=== PATIENT | female | born 1965 | race Caucasian/White ===

== ENCOUNTER 2017-12-04 14:01 | Inpatient (IN) ==
[2017-12-04 14:32] LABS: Microscopic, Urine URINE MICROSCOPIC (MICROSCOPIC)
[2017-12-04 14:40] LABS: Appearance,Urine CLEAR (Clear); Bilirubin,Urine Negative (Negative); Blood, Urine Negative (Negative); Color,Urine YELLOW (Yellow); Glucose,Urine (UA) Negative (Negative); Ketones,Urine Negative (Negative); Leukocyte Esterase,Urine Negative (Negative); Protein,Urine Negative (Negative); Specific Gravity, Urine <= 1.005 (1.005-1.030); Urobilinogen,Urine 0.2 EU/dl (0.2)
--- NOTE | 2017-12-04 14:54 | Emergency Department Note ---
ED Disposition Clinical Impression: Cellulitis, Status post knee replacement, Obesity (BMI 30-39.9) Disposition: Home, Self-Care Condition on Discharge: Fair Referrals: January Flores MD [Primary Care Provider] - - Critical Care Critical Care Time: No Attestation: On 12/04/17, the high probability of a clinically significant, sudden or life threatening deterioration of the following system(s) required my full and direct attention, intervention and personal management. The time I documented below is in addition to time spent performing reported procedures but includes the following listed in this critical care notation. Medical Decision Making - Reyes Inquiry Pt receiving controlled substance: No Reyes was queried for this patient: No Vital Signs: 12/04/17 14:15 12/04/17 16:29 Temperature 100.0 F H 100.2 F H Temperature Source Oral Oral Pulse Rate [Right Brachial] 90 89 Respiratory Rate 16 20 Blood Pressure [Right Arm] 125/78 108/62 Blood Pressure Mean [Right Arm] 93 77 Blood Pressure Source [Right Arm] Automatic Cuff Automatic Cuff Blood Pressure Position [Right Arm] Sitting Sitting 02 Sat by Pulse Oximetry 97 95 Oxygen Delivery Method Room Air Room Air - Lab Data Lab Results 12/04/17 14:25: Urine Color Yellow, Urine Appearance Clear, Urine pH 7.0, Ur Specific [place] <= 1.005, Urine Protein Negative, Urine Glucose (UA) Negative, Urine Ketones Negative, Urine Blood Negative, Urine Nitrate Negative, Urine Bilirubin Negative, Urine Urobilinogen 0.2, Ur Leukocyte Esterase Negative, Urine RBC None, Urine WBC Occasional, Ur Squamous Epith Cells 10-20, Urine Bacteria Trace 12/04/17 16:10: WBC 7.7, RBC 4.19 L, Hgb 11.9 L, Hct 36.8 L, MCV 87.7, MCH 28.4 , MCHC 32.4, RDW 15.2, Plt Count 232, MPV 8.6, Neut % (Auto) 80.9 H, Lymph % ( Auto) 13.8, [place] % (Auto) 2.8, Eos % (Auto) 2.1, Baso % (Auto) 0.4, Neut # (Auto ) 6.2, Lymph # (Auto) 1.1, [place] # (Auto) 0.2, Eos # (Auto) 0.2, Baso # (Auto) 0.0 12/04/17 16:10: Sodium 139, Potassium 3.5, Chloride 103, Carbon Dioxide 30, Anion Gap 9.5, BUN 5 L, Creatinine 0.89, Estimated Creat Clear 126, Estimated GFR 66, Est GFR ( Amer) 80, Glucose 122 H, Calcium 8.5, Total Bilirubin 0.5, AST 36, ALT 44, Alkaline Phosphatase 129 H, Total Protein 7.2, Albumin 3.2 L, Globulin 4.0 H, Albumin/Globulin Ratio 0.8 L 12/04/17 16:10: Lactate 2.1 H Result diagrams: 12/04/17 16:10 12/04/17 16:10 Orders (Tests/Meds): ED MEDICATIONS Discontinued Medications Generic Name Dose Route Start Last Admin Trade Name Cooper PRN Reason Stop Dose Admin Acetaminophen 1,000 mg 12/04/17 16:29 12/04/17 16:33 Tylenol 500mg Tablet PO 12/04/17 16:30 1,000 mg ONCE ONE Administration Ceftriaxone Sodium 1 gm/ 50 mls @ 100 mls/hr 12/04/17 14:56 12/04/17 15:51 Sodium Chloride IV 12/04/17 15:25 100 mls/hr ONCE ONE Administration Protocol Iopamidol 75 ml 12/04/17 17:08 12/04/17 17:08 [id number]; 75ml Vial IV 12/04/17 17:09 75 ml ONCE ONE Administration Ketorolac Tromethamine 30 mg 12/04/17 14:56 12/04/17 15:50 Toradol 30mg/Ml Vial IV 12/04/17 14:57 30 mg ONCE ONE Administration Sodium Chloride 10 ml 12/04/17 17:08 12/04/17 17:08 Rad-Saline Flush 10ml Syringe IV 12/04/17 17:09 10 ml ONCE ONE Administration Sodium Chloride 50 ml 12/04/17 17:08 12/04/17 17:08 Rad-Ns 50ml Vial IV 12/04/17 17:09 50 ml ONCE ONE Administration ORDERS Category Date Time Status Blood Culture Stat Micro 12/04/17 16:10 Received - Radiology Data #1 Image(s): Chest Image Reviewed: Yes I reviewed the patient's radiology image Preliminary Findings: Abnormal IMPRESSION: Mild cardiomegaly otherwise negative - CT Data CT Scan: Chest Time Received: 17:[address] Reviewed: Yes: I have viewed the radiologist's interpretation Preliminary Findings: Normal/NAD Findings Narrative: IMPRESSION: No acute finding. No evidence of pulmonary embolus, aortic aneurysm, or aortic dissection. - US Data US Images: Lower Extremity ED US Reviewed: Yes: I have viewed radiologist's interpretation Preliminary Findings: Normal/NAD Findings Narrative: IMPRESSIONS No evidence of deep or superficial vein thrombosis involving the left lower extremity Left lower extremity venous duplex evaluation. Doppler flow study including spectral analysis, color and jorge scale imaging. Location: Bedside. Patient status: Inpatient. Tables: Venous flow and imaging: Medical Decision Narrative: [address] Maria admitted for cellulitis he asked me to contact the orthopedic and notify him that the patient is in the ED. [address] Griffiths who agreed to admit the patient to the in-service. General Adult HPI - General Chief complaint: PAIN Stated complaint: fever place on granados left leg Time Seen by Provider: 12/04/17 14:30 Mode of Arrival: Wheelchair Limitations: No Limitations Description of Symptoms (Recalled from ER Triage Doc. by RN): Pt advises she had knee replacement surgery on 11/24 and for the past couple of days her lower left leg is red, swollen, tender to touch. She advises she has been running a fever also. - History of Present Illness HPI narrative: 52 years old white female status post left knee replacement 7 days ago. 5 days ago she started to rehab with pain and swelling of the left calf muscle and mild redness of the skin of the granados area. Next day she developed fever of 101F symptoms continued and she presented today to the ED with above symptoms. She she admits for fever and chills with no headache neck stiffness cough congestion nausea vomiting abdominal pain or dysuria. Onset (ago): day(s) (4-5 days.) Location: left, lower extremity Radiation: non-radiation Severity: moderate Quality: aching, dull Consistency: constant Relieving factors: rest, other (and elevation. ) Exacerbating factors: other (Touching the skin of the anterior granados area makes the pain worse.) - Related Data Allergies Allergy/AdvReac Type Severity Reaction Status Date / Time duloxetine [From Cymbalta] Allergy Mild Verified 12/04/17 14:26 pregabalin [From Lyrica] Allergy Verified 12/04/17 14:26 [facility] History I have reviewed the patient's past medical history: Yes Medical History: Denies:: Cancer, Diabetes Mellitus Type 1, Diabetes Mellitus Type 2, MRSA Laterality Cases: Bilateral: Carpal Tunnel Release, Tonsillectomy, Total Knee Replacement Amputation: No Fractures: No - Social History Alcohol Intake: never - Psychiatric History Expresses thoughts of harming self/others: None Suicide Plan Description: No Plan ROS Obtained: Yes All systems reviewed & no additional complaints Physical Exam - General General appearance: alert, in no apparent distress, anxious - Head Head exam: atraumatic, normocephalic, normal inspection - Eye Eye exam: Present: normal appearance, PERRL, EOMI. Absent: scleral icterus, nystagmus - ENT ENT exam: Present: normal exam, normal oropharynx, mucous membranes moist, TM's normal bilaterally, normal external ear exam - Neck Neck exam: Present: normal inspection, full ROM, trachea midline. Absent: tenderness, meningismus, lymphadenopathy - Chest Chest inspection: Present: normal inspection, symmetric chest wall rise. Absent : tenderness - Respiratory Respiratory exam: Present: normal lung sounds bilaterally. Absent: respiratory distress, wheezes - Cardiovascular Cardiovascular exam: Present: regular rate, normal rhythm, normal heart sounds. Absent: JVD - Abdominal Exam Abdominal exam: Present: soft, normal bowel sounds. Absent: distention, tenderness, guarding, rebound, rigidity - External exam: Present: normal external exam - Extremities Exam Extremities exam: Present: normal inspection, full ROM, tenderness (On examining the skin of the anterior granados area on the left leg), normal capillary refill, joint swelling, other (The incision over the left knee is clean with no discharge. She does have mild redness around the scab in the center of the left granados area medially with tenderness to palpation. She has no calf tenderness or groin tenderness). Absent: pedal edema, calf tenderness - Back Exam Back exam: Present: normal inspection. Absent: tenderness - Neurological Exam Neurological exam: Present: alert, oriented X3, CN II-XII intact, motor sensory deficit, reflexes normal, other (She has an antalgic gait due to her surgery on the left leg.). Absent: normal gait - Psychiatric Psychiatric exam: Present: normal affect, normal mood - Skin Skin exam: Present: warm, dry, intact, normal color - Lymphatic Lymphatic Findings: no adenopathy
[2017-12-04 15:04] LABS: Bacteria,Urine Trace /lpf; WBC,Urine Occasional #/hpf (0-3)
--- NOTE | 2017-12-04 15:44 | Non-Invasive Vascular Report ---
"Venous Exam IMPRESSIONS No evidence of deep or superficial vein thrombosis involving the left lower extremity Left lower extremity venous duplex evaluation. Doppler flow study including spectral analysis, color and jorge scale imaging. Location: Bedside. Patient status: Inpatient. Tables: Venous flow and imaging: + +-------+ + |Location |Overall|Flow properties | + +-------+ + |Left common femoral |Patent |Normal phasicity; spontaneous; | | | |normal augmentation; compressible | + +-------+ + |Left saphenofemoral junction|Patent |Compressible | + +-------+ + |Left profunda femoral |Patent |Compressible | + +-------+ + |Left femoral |Patent |Normal phasicity; spontaneous; | | | |normal augmentation; compressible | + +-------+ + |Left greater saphenous |Patent |Normal phasicity; spontaneous; | | | |normal augmentation; compressible | + +-------+ + |Left popliteal |Patent |Normal phasicity; spontaneous; | | | |normal augmentation; compressible | + +-------+ + |Left posterior tibial |Patent |Compressible | + +-------+ + |Left peroneal |Patent |Compressible | + +-------+ + |Left gastrocnemius |Patent |Compressible | + +-------+ + |Left soleal |Patent |Compressible | + +-------+ + (Report amended ) Electronically signed by: Saul Wisdom [id number]"
[2017-12-04 16:23] LABS: Basophils % 0.4 % (0.1-2.0); Eosinophils # 0.2 K/mm3 (0.0-0.4); Eosinophils % 2.1 % (0.1-12.0); Hematocrit 36.8 % (37.0-47.0); Hemoglobin 11.9 g/dL (12.2-16.2); Lymphocytes # 1.1 K/mm3 (0.7-4.5); Lymphocytes % 13.8 K/mm3 (10-50); Mean Corpuscular HGB Conc 32.4 g/dL (31.8-35.4); Mean Corpuscular Hemoglobin 28.4 pg (27.0-31.2); Mean Corpuscular Volume 87.7 fl (81-99); Mean Platelet Volume 8.6 fl (7.4-10.4); Monocytes # 0.2 K/mm3 (0.1-1.0); Monocytes % 2.8 % (1.7-9.3); Neutrophils # 6.2 K/mm3 (1.8-7.8); Neutrophils % 80.9 % (37.0-80.0); Platelet Count 232 K/mm3 (142-424); Red Blood Count 4.19 M/mm3 (4.20-5.40); Red Cell Distribution Width 15.2 % (11.5-17.5); White Blood Count 7.7 K/mm3 (4.8-10.8)
[2017-12-04 16:42] LABS: Albumin Level 3.2 gm/dL (3.4-5.0); Albumin/Globulin Ratio 0.8 (1.1-1.8); Anion Gap 9.5 mEq/L (5-15); Bilirubin,Total 0.5 mg/dL (0.2-1.0); Calcium 8.5 mg/dL (8.5-10.1); Potassium 3.5 mmoL/L (3.5-5.1); Total Protein,Serum 7.2 gm/dL (6.4-8.2)
[2017-12-05 06:21] LABS: Basophils % 0.3 % (0.1-2.0); Eosinophils # 0.2 K/mm3 (0.0-0.4); Eosinophils % 4.4 % (0.1-12.0); Lymphocytes # 1.1 K/mm3 (0.7-4.5); Mean Corpuscular HGB Conc 31.6 g/dL (31.8-35.4); Mean Corpuscular Hemoglobin 27.9 pg (27.0-31.2); Mean Corpuscular Volume 88.4 fl (81-99); Mean Platelet Volume 8.5 fl (7.4-10.4); Monocytes # 0.3 K/mm3 (0.1-1.0); Monocytes % 5.6 % (1.7-9.3); Neutrophils # 2.9 K/mm3 (1.8-7.8); Neutrophils % 64.7 % (37.0-80.0); Platelet Count 218 K/mm3 (142-424); Red Blood Count 3.83 M/mm3 (4.20-5.40); Red Cell Distribution Width 15.5 % (11.5-17.5)
[2017-12-05 06:24] LABS: Anion Gap 6.2 mEq/L (5-15); Calcium 8.3 mg/dL (8.5-10.1); Potassium 3.2 mmoL/L (3.5-5.1)
--- NOTE | 2017-12-05 06:24 | History & Physical Report ---
*Admission Date: 12/04/17 *Chief complaint: Left leg pain and swelling *History of present illness: 52-year-old female who is approximately 11 days postop from left knee replacement presented to the emergency department yesterday with complaints of pain, swelling, redness that had developed in the left leg over the preceding 4 days. Patient noticed onset of the symptoms earlier in the week and had pointed this out to her physical therapist. She had associated low-grade fevers as well. Yesterday morning her therapist decided to contact the orthopedic surgeon who performed her surgery and it was recommended she go to the emergency department. Patient's surgery was in [place], her primary care physician is in [place], she works in [place], but patient came to our emergency department for evaluation. In the emergency department she was described as having rapidly progressive erythema of the lower leg and extending posterior medially in a rather fast fashion. She had associated tenderness. Doppler with warm to the lower extremity to rule out DVT which was negative. Patient had a low-grade fever to 100.2 and a normal white blood cell count. Because of the rapidly progressive erythema the borders were identified and marked with ink and patient was admitted on vancomycin. Patient has been ambulating throughout the night. She did not sleep well because she did not have her Ambien which she takes at home. She has not had any further fevers since admission. [facility] History I have reviewed the patient's past medical history: Yes Medical History: Denies:: Cancer, Diabetes Mellitus Type 1, Diabetes Mellitus Type 2, MRSA Other Medical History: Reports: Fibromyalgia, Hypothyroidism Laterality Cases: Bilateral: Carpal Tunnel Release, Tonsillectomy, Total Knee Replacement Other Surgeries: Yes: Cholecystectomy Amputation: No Fractures: No - *Social History Educational Level: Completed High School Smoking Status: Never smoker Alcohol Intake: never Occupational Status: employed Household Members: family - Psychiatric History Expresses thoughts of harming self/others: None Suicide Plan Description: No Plan *Family Hx:: Anemia, Asthma, Cancer, Thyroid Disorder Review of Systems - Review of Systems Review of systems:: pertinent systems reviewed and negative unless documented below Meds Home Medications Medication Instructions Recorded Confirmed Type Gabapentin [Gabapentin 300mg Cap] 300 - 600 mg PO DAILY 12/04/17 12/04/17 History Levothyroxine Sodium 88 mcg PO DAILY 12/04/17 12/04/17 History [Levothyroxine 88mcg (0.088mg) Tab] Pantoprazole Sodium [Pantoprazole 40 mg PO DAILY 12/04/17 12/04/17 History 20mg Tab] RX: Amitriptyline HCl [Elavil 50mg 50 mg PO HS 12/04/17 12/04/17 History tablet] RX: Escitalopram Oxalate 20 mg PO HS 12/04/17 12/04/17 History RX: Zolpidem Tartrate [Ambien 10mg 10 mg PO HS 12/04/17 12/04/17 History tablet] Allergies Allergy/AdvReac Type Severity Reaction Status Date / Time duloxetine [From Cymbalta] Allergy Mild Verified 12/04/17 20:18 latex Allergy Mild Verified 12/04/17 20:18 pregabalin [From Lyrica] Allergy Verified 12/04/17 20:18 Exam Vital signs and Labs for Last 24 Hours: Temp Pulse Resp BP Pulse Ox 98.5 F 77 16 111/71 92 L 12/05/17 04:00 12/05/17 04:00 12/05/17 04:00 12/05/17 04:00 12/05/17 04:00 Laboratory Results - last 24 hr 12/04/17 14:25: Urine Color Yellow, Urine Appearance Clear, Urine pH 7.0, Ur Specific [place] <= 1.005, Urine Protein Negative, Urine Glucose (UA) Negative, Urine Ketones Negative, Urine Blood Negative, Urine Nitrate Negative, Urine Bilirubin Negative, Urine Urobilinogen 0.2, Ur Leukocyte Esterase Negative, Urine RBC None, Urine WBC Occasional, Ur Squamous Epith Cells 10-20, Urine Bacteria Trace 12/04/17 16:10: WBC 7.7, RBC 4.19 L, Hgb 11.9 L, Hct 36.8 L, MCV 87.7, MCH 28.4 , MCHC 32.4, RDW 15.2, Plt Count 232, MPV 8.6, Neut % (Auto) 80.9 H, Lymph % ( Auto) 13.8, [place] % (Auto) 2.8, Eos % (Auto) 2.1, Baso % (Auto) 0.4, Neut # (Auto ) 6.2, Lymph # (Auto) 1.1, [place] # (Auto) 0.2, Eos # (Auto) 0.2, Baso # (Auto) 0.0 12/04/17 16:10: Sodium 139, Potassium 3.5, Chloride 103, Carbon Dioxide 30, Anion Gap 9.5, BUN 5 L, Creatinine 0.89, Estimated Creat Clear 126, Estimated GFR 66, Est GFR ( Amer) 80, Glucose 122 H, Calcium 8.5, Total Bilirubin 0.5, AST 36, ALT 44, Alkaline Phosphatase 129 H, Total Protein 7.2, Albumin 3.2 L, Globulin 4.0 H, Albumin/Globulin Ratio 0.8 L 12/04/17 16:10: Lactate 2.1 H 12/04/17 20:29: Lactate 1.7 I & O for Last 24 hours: Intake & Output 12/02/17 12/03/17 12/04/17 12/05/17 11:59 11:59 11:59 11:59 Intake Total 549 / 549 Output Total 1000 / 1000 Balance -451 / -451 Weight 261 lb 4 oz Narrative: Patient appears well and in no distress. Lungs are clear to auscultation. Heart has a regular rate and rhythm. Left leg is examined and compared to the right. Pedal edema that was described as being present is now absent. Patient has noticeable bruising in the lower medial leg. Area of bruising is tender. There is some faint erythema starting in the medial calf and extending medial and posterior up the leg. There is no involvement of the surgical incision with erythema or swelling. Patient is tender along the route of erythema. She has palpable pulses and is neurovascularly intact in the left foot H&P: Result - Labs Labs: Short CBC 12/04/17 Range/Units 16:10 WBC 7.7 (4.8-10.8) K/mm3 Hgb 11.9 L (12.2-16.2) g/dL Hct 36.8 L (37.0-47.0) % Plt Count 232 (142-424) K/mm3 BMP 12/04/17 16:10 Sodium 139 Potassium 3.5 Chloride 103 Carbon Dioxide 30 BUN 5 L Creatinine 0.89 Glucose 122 H Calcium 8.5 Liver Function 12/04/17 Range/Units 16:10 Total Bilirubin 0.5 (0.2-1.0) mg/dL AST 36 (15-37) U/L ALT 44 (12-78) U/L Alkaline Phosphatase 129 H (46-116) U/L Albumin 3.2 L (3.4-5.0) gm/dL Urine 12/04/17 Range/Units 14:25 Urine Color Yellow (Yellow) Urine Appearance Clear (Clear) Urine pH 7.0 (5.0-8.5) Ur Specific [place] <= 1.005 (1.005-1.030) Urine Protein Negative (Negative) Urine Glucose (UA) Negative (Negative) Assessment and Plan (1) Cellulitis Current visit: Yes Status: Acute Category: Medical Code(s): L03.90 - Cellulitis, unspecified (2) Superficial thrombophlebitis Current visit: Yes Status: Acute Category: Medical Code(s): I80.9 - Phlebitis and thrombophlebitis of unspecified site (3) Obesity (BMI 30-39.9) Current visit: Yes Status: Acute Category: Medical Code(s): E66.9 - Obesity, unspecified (4) Status post knee replacement Current visit: Yes Status: Acute Category: Surgical Code(s): Z96.659 - Presence of unspecified artificial knee joint - Assessment and plan all Dx Assessment and Plan for all problems:: Patient is already showing significant signs of improvement with now barely perceptible erythema. Continue vancomycin. I will add an anti-inflammatory for what I believe is also some underlying superficial thrombophlebitis. Patient has been ambulating. Will reassess this afternoon. She has scheduled follow-up with her orthopedic surgeon next Friday. CBC will be repeated this morning
[2017-12-05 06:36] LABS: Hematocrit 33.9 % (37.0-47.0); Hemoglobin 10.8 g/dL (12.2-16.2); White Blood Count 4.4 K/mm3 (4.8-10.8)
--- NOTE | 2017-12-05 07:20 | Pharmacy Consult Notes ---
[facility] Pharmacy VTE Monitoring - Patient Demographics Admission date: 12/04/17 Report Date: 12/05/17 Time: 07:20 Allergies/Adverse Reactions: Patient Allergies duloxetine [From Cymbalta] Allergy (Mild, Verified 12/04/17 20:18) latex Allergy (Mild, Verified 12/04/17 20:18) pregabalin [From Lyrica] Allergy (Verified 12/04/17 20:18) Height: 1.7 m Weight: 118.501 kg Patient Problems: Current Active Problems Cellulitis (Acute) Status post knee replacement (Acute) Obesity (BMI 30-39.9) (Acute) Superficial thrombophlebitis (Acute) - VTE Risk Labs: VTE Related Lab Results Hgb 10.8 g/dL (12.2-16.2) L 12/05/17 05:09 Hct 33.9 % (37.0-47.0) L 12/05/17 05:09 Plt Count 218 K/mm3 (142-424) 12/05/17 05:09 BUN 5 mg/dL (7-18) L 12/05/17 05:09 Creatinine 0.75 mg/dL (0.55-1.02) 12/05/17 05:09 Estimated Creat Clear 162 mL/min (0-300) 12/05/17 05:09 Was VTE Risk Assessment Performed: Yes VTE Score: 4 VTE Risk Level: Low Risk - Prophylaxis VTE Prophylaxis Ordered?: Yes Types of VTE Prophylaxis: TEDS Knee High Location of Applied Device: Bilateral Lower Extremeties - VTE Diagnosis Confirmed Treatment or plan recommended: Continue Current Treatment
--- NOTE | 2017-12-05 09:44 | Pharmacy Consult Notes ---
- Pharmacy Consult Date: 12/05/17 Time: 09:42 Referring provider: DR. SOARES Reason for Consult:: VANCOMYCIN DOSING Allergies and ADEs:: Allergies Allergy/AdvReac Type Severity Reaction Status Date / Time duloxetine [From Cymbalta] Allergy Mild Verified 12/04/17 20:18 latex Allergy Mild Verified 12/04/17 20:18 pregabalin [From Lyrica] Allergy Verified 12/04/17 20:18 Home Medications:: Home Medications Medication Instructions Recorded Confirmed Type Amitriptyline HCl [Elavil 50mg 50 mg PO HS 12/04/17 12/04/17 History tablet] Escitalopram Oxalate 30 mg PO HS 12/04/17 12/05/17 History Gabapentin [Gabapentin 300mg Cap] 300 mg PO BID 12/04/17 12/05/17 History Pantoprazole Sodium [Pantoprazole 40 mg PO DAILY 12/04/17 12/04/17 History 20mg Tab] Zolpidem Tartrate [Ambien 10mg 10 mg PO HS 12/04/17 12/04/17 History tablet] Buspirone HCl 15 mg PO BID 12/05/17 12/05/17 History Diclofenac Sodium [Diclofenac Sod 2 gm TP QID 12/05/17 12/05/17 History 100gm Topical Gel] Enoxaparin Sodium [Lovenox 40 mg SQ DAILY 12/05/17 12/05/17 History 40mg/0.4mL syringe] Levothyroxine Sodium 100 mg PO DAILY 12/05/17 12/05/17 History [Levothyroxine 100mcg (0.1MG) Tab] Height: 1.7 m Weight: 118.501 kg Laboratory Results:: Laboratory Results - last 24 hr 12/04/17 14:25: Urine Color Yellow, Urine Appearance Clear, Urine pH 7.0, Ur Specific [place] <= 1.005, Urine Protein Negative, Urine Glucose (UA) Negative, Urine Ketones Negative, Urine Blood Negative, Urine Nitrate Negative, Urine Bilirubin Negative, Urine Urobilinogen 0.2, Ur Leukocyte Esterase Negative, Urine RBC None, Urine WBC Occasional, Ur Squamous Epith Cells 10-20, Urine Bacteria Trace 12/04/17 16:10: WBC 7.7, RBC 4.19 L, Hgb 11.9 L, Hct 36.8 L, MCV 87.7, MCH 28.4 , MCHC 32.4, RDW 15.2, Plt Count 232, MPV 8.6, Neut % (Auto) 80.9 H, Lymph % ( Auto) 13.8, [place] % (Auto) 2.8, Eos % (Auto) 2.1, Baso % (Auto) 0.4, Neut # (Auto ) 6.2, Lymph # (Auto) 1.1, [place] # (Auto) 0.2, Eos # (Auto) 0.2, Baso # (Auto) 0.0 12/04/17 16:10: Sodium 139, Potassium 3.5, Chloride 103, Carbon Dioxide 30, Anion Gap 9.5, BUN 5 L, Creatinine 0.89, Estimated Creat Clear 126, Estimated GFR 66, Est GFR ( Amer) 80, Glucose 122 H, Calcium 8.5, Total Bilirubin 0.5, AST 36, ALT 44, Alkaline Phosphatase 129 H, Total Protein 7.2, Albumin 3.2 L, Globulin 4.0 H, Albumin/Globulin Ratio 0.8 L 12/04/17 16:10: Lactate 2.1 H 12/04/17 20:29: Lactate 1.7 12/05/17 05:09: WBC 4.4 L D, RBC 3.83 L, Hgb 10.8 L, Hct 33.9 L, MCV 88.4, MCH 27.9, MCHC 31.6 L, RDW 15.5, Plt Count 218, MPV 8.5, Neut % (Auto) 64.7, Lymph % (Auto) 25.0, [place] % (Auto) 5.6, Eos % (Auto) 4.4, Baso % (Auto) 0.3, Neut # ( Auto) 2.9, Lymph # (Auto) 1.1, [place] # (Auto) 0.3, Eos # (Auto) 0.2, Baso # (Auto ) 0.0 12/05/17 05:09: Sodium 142, Potassium 3.2 L, Chloride 109 H, Carbon Dioxide 30, Anion Gap 6.2, BUN 5 L, Creatinine 0.75, Estimated Creat Clear 162, Estimated GFR 81, Est GFR ( Amer) 98 D, Glucose 108 H, Calcium 8.3 L Medical History: Denies:: Cancer, Diabetes Mellitus Type 1, Diabetes Mellitus Type 2, MRSA Assessment and Plan (1) Cellulitis Current visit: Yes Status: Acute Category: Medical Code(s): L03.90 - Cellulitis, unspecified (2) Superficial thrombophlebitis Current visit: Yes Status: Acute Category: Medical Code(s): I80.9 - Phlebitis and thrombophlebitis of unspecified site (3) Obesity (BMI 30-39.9) Current visit: Yes Status: Acute Category: Medical Code(s): E66.9 - Obesity, unspecified (4) Status post knee replacement Current visit: Yes Status: Acute Category: Surgical Code(s): Z96.659 - Presence of unspecified artificial knee joint - Assessment and plan all Dx Assessment and Plan for all problems:: BASED ON PATIENT FACTORS, RECOMMEND VANCOMYCIN 2 GM IV Q12H. WILL OBTAIN VANCOMYCIN TROUGH LEVEL PRIOR TO 4TH DOSE. PHARMACY WILL FOLLOW DAILY AND ADJUST APPROPRIATE.
[2017-12-05 16:20] VITALS: BP 134/79
--- NOTE | 2017-12-05 16:30 | Discharge Summary ---
General - General Admission date:: 12/04/17 Discharge date: 12/05/17 HPI HPI: 52-year-old female who is approximately 11 days postop from left knee replacement presented to the emergency department yesterday with complaints of pain, swelling, redness that had developed in the left leg over the preceding 4 days. Patient noticed onset of the symptoms earlier in the week and had pointed this out to her physical therapist. She had associated low-grade fevers as well. Yesterday morning her therapist decided to contact the orthopedic surgeon who performed her surgery and it was recommended she go to the emergency department. Patient's surgery was in [place], her primary care physician is in [place], she works in [place], but patient came to our emergency department for evaluation. In the emergency department she was described as having rapidly progressive erythema of the lower leg and extending posterior medially in a rather fast fashion. She had associated tenderness. Doppler with warm to the lower extremity to rule out DVT which was negative. Patient had a low-grade fever to 100.2 and a normal white blood cell count. Because of the rapidly progressive erythema the borders were identified and marked with ink and patient was admitted on vancomycin. Patient has been ambulating throughout the night. She did not sleep well because she did not have her Ambien which she takes at home. She has not had any further fevers since admission. Hospital Course Hospital Course: Patient was admitted and placed on vancomycin. By the following morning the leg showed some improvement. Erythema of the leg never involved her surgical incision as this remained clean. Erythema primarily involve the medial lower leg and extended up to the thigh. I felt like there is some element of phlebitis likely involving greater saphenous vein of the left leg. Patient was started on naproxen. By the afternoon of December 05 patient's erythema had almost completely resolved, swelling was absent, patient noted significant improvement in pain. She had not had any further fevers. White count was never elevated. She was discharged home to continue Bactrim to cover the possibility of cellulitis and she was advised to use naproxen for phlebitis. Patient will follow-up with orthopedic surgeon as scheduled on December 10 Objective Vital signs: Temp Pulse Resp BP Pulse Ox 98.0 F 76 20 134/79 98 12/05/17 16:00 12/05/17 16:00 12/05/17 16:12/05/17 16:00 12/05/17 16:00 Results Labs on day of discharge: Labs from last 24 hours 12/05/17 12/05/17 12/04/17 05:09 05:09 20:29 WBC 4.4 L D RBC 3.83 L Hgb 10.8 L Hct 33.9 L MCV 88.4 MCH 27.9 MCHC 31.6 L RDW 15.5 Plt Count 218 MPV 8.5 Neut % (Auto) 64.7 Lymph % (Auto) 25.0 [place] % (Auto) 5.6 Eos % (Auto) 4.4 Baso % (Auto) 0.3 Neut # (Auto) 2.9 Lymph # (Auto) 1.1 [place] # (Auto) 0.3 Eos # (Auto) 0.2 Baso # (Auto) 0.0 Sodium 142 Potassium 3.2 L Chloride 109 H Carbon Dioxide 30 Anion Gap 6.2 BUN 5 L Creatinine 0.75 Estimated Creat Clear 162 Estimated GFR 81 Est GFR ( Amer) 98 D Glucose 108 H Lactate 1.7 Calcium 8.3 L Total Bilirubin AST ALT Alkaline Phosphatase Total Protein Albumin Globulin Albumin/Globulin Ratio 12/04/17 12/04/17 12/04/17 16:10 16:10 16:10 WBC 7.7 RBC 4.19 L Hgb 11.9 L Hct 36.8 L MCV 87.7 MCH 28.4 MCHC 32.4 RDW 15.2 Plt Count 232 MPV 8.6 Neut % (Auto) 80.9 H Lymph % (Auto) 13.8 [place] % (Auto) 2.8 Eos % (Auto) 2.1 Baso % (Auto) 0.4 Neut # (Auto) 6.2 Lymph # (Auto) 1.1 [place] # (Auto) 0.2 Eos # (Auto) 0.2 Baso # (Auto) 0.0 Sodium 139 Potassium 3.5 Chloride 103 Carbon Dioxide 30 Anion Gap 9.5 BUN 5 L Creatinine 0.89 Estimated Creat Clear 126 Estimated GFR 66 Est GFR ( Amer) 80 Glucose 122 H Lactate 2.1 H Calcium 8.5 Total Bilirubin 0.5 AST 36 ALT 44 Alkaline Phosphatase 129 H Total Protein 7.2 Albumin 3.2 L Globulin 4.0 H Albumin/Globulin Ratio 0.8 L DS: Diagnosis - Discharge Diagnosis (1) Cellulitis Status: Acute (2) Superficial thrombophlebitis Status: Acute (3) Obesity (BMI 30-39.9) Status: Acute (4) Status post knee replacement Status: Acute Discharge Plan - Patient Discharge Instructions ACTIVITY: Continue current activity DIET: continue same diet - Follow up Plan Follow up with: Randy Rivera [Referring] - Disposition: Home, Self-Usp Medications: Home Medications Medication Instructions Recorded Confirmed Type Amitriptyline HCl [Elavil 50mg 50 mg PO HS 12/04/17 12/04/17 History tablet] Escitalopram Oxalate 30 mg PO HS 12/04/17 12/05/17 History Gabapentin [Gabapentin 300mg Cap] 300 mg PO BID 12/04/17 12/05/17 History Pantoprazole Sodium [Pantoprazole 40 mg PO DAILY 12/04/17 12/04/17 History 20mg Tab] Zolpidem Tartrate [Ambien 10mg 10 mg PO HS 12/04/17 12/04/17 History tablet] Buspirone HCl 15 mg PO BID 12/05/17 12/05/17 History Diclofenac Sodium [Diclofenac Sod 2 gm TP QID 12/05/17 12/05/17 History 100gm Topical Gel] Enoxaparin Sodium [Lovenox 40 mg SQ DAILY 12/05/17 12/05/17 History 40mg/0.4mL syringe] Levothyroxine Sodium 100 mg PO DAILY 12/05/17 12/05/17 History [Levothyroxine 100mcg (0.1MG) Tab] Prescriptions/Medication Reconciliation: New Sulfamethoxazole/Trimethoprim [Bactrim DS tablet] 1 each PO BID #14 tab Continue Escitalopram Oxalate 30 mg PO HS Gabapentin [Gabapentin 300mg Cap] 300 mg PO BID Pantoprazole Sodium [Pantoprazole 20mg Tab] 40 mg PO DAILY Diclofenac Sodium [Diclofenac Sod 100gm Topical Gel] 2 gm TP QID Enoxaparin Sodium [Lovenox 40mg/0.4mL syringe] 40 mg SQ DAILY Zolpidem Tartrate [Ambien 10mg tablet] 10 mg PO HS Amitriptyline HCl [Elavil 50mg tablet] 50 mg PO HS Levothyroxine Sodium [Levothyroxine 100mcg (0.1MG) Tab] 100 mg PO DAILY Buspirone HCl 15 mg PO BID
== END 2017-12-05 16:50 | disposition home or self-care (01) ==
LOC: ER 14:01 → 2ND 14:01 → OBSVTOIN 19:00 → 2ND 19:04
PROVIDERS: ADMIT Family Medicine; ATTEND Family Medicine
CPT/HCPCS: 36415; 71020; 71046; 71275; 80048; 80053; 81001; 83605; 85025; 87040; 93971; 96374; 96375; 99284; J3370; Q9967

== ENCOUNTER 2019-12-01 20:35 | Emergency (ER) | payer BC, SELFPAY ==
--- NOTE | 2019-12-01 20:30 | ECG_ITS ---
APPROVED REPORT Exam: Resting ECG HR:90 bpm ECG Measurements Heart Rate 90 AXES [place] 148 P 33 QRSd 82 QRS -40 QT 380 T 19 QTc 464 <Conclusion> Normal sinus rhythm Left axis deviation Pulmonary disease pattern RSR' or QR pattern in V1 suggests right ventricular conduction delay Abnormal ECG Electronically signed by : Jesús Correia, 12/03/2019 12:29:56
[2019-12-01 20:36] VITALS: BP 134/70; PULSE 89; RESP 16; TEMP 37; O2SAT 96; BMI 32.8
--- NOTE | 2019-12-01 20:36 | XR_ITS ---
PROCEDURE: XR CHEST 2V CLINICAL HISTORY: chest pain COMPARISON: CXR2V XR chest 2V from 12/04/2017 FINDINGS: Minimal increased density is present in the left lung base and may be due to an area of atelectasis or fibrosis versus developing nodule. Chest CT may provide further evaluation. The remaining lungs are clear. There is mild cardiomegaly without failure. No acute bony abnormalities. IMPRESSION: Small nodularity in left lung base which could be due to area of atelectasis, fibrosis, or developing nodule. Follow-up suggested Dictated by: Sual Wisdom MD 12/02/2019 07:21 Electronically signed by Saul Wisdom MD in [place] 12/02/2019 07:21
[2019-12-01 20:53] VITALS: BP 131/71; PULSE 78; RESP 18; O2SAT 97
[2019-12-01 20:59] LABS: Basophils % 0.4 % (0.1-2.0); Eosinophils # 0.2 K/mm3 (0.0-0.4); Eosinophils % 2.9 % (0.1-12.0); Hematocrit 39.2 % (37.0-47.0); Hemoglobin 13.1 g/dL (12.2-16.2); Lymphocytes # 1.6 K/mm3 (0.7-4.5); Lymphocytes % 19.2 % (10-50); Mean Corpuscular HGB Conc 33.4 g/dL (31.8-35.4); Mean Corpuscular Hemoglobin 29.7 pg (27.0-31.2); Mean Corpuscular Volume 88.9 fl (81-99); Monocytes # 0.2 K/mm3 (0.1-1.0); Neutrophils # 6.1 K/mm3 (1.8-7.8); Neutrophils % 74.4 % (37.0-80.0); Platelet Count 208 K/mm3 (142-424); Red Blood Count 4.41 M/mm3 (4.20-5.40); Red Cell Distribution Width 14.2 % (11.5-17.5); White Blood Count 8.1 K/mm3 (4.8-10.8)
[2019-12-01 21:01] LABS: Chloride 101 mmol/L (98-107); Sodium 138 mmol/L (136-145)
[2019-12-01 21:02] LABS: Potassium 3.9 mmoL/L (3.5-5.1)
[2019-12-01 21:04] LABS: Blood Urea Nitrogen 9 mg/dl (7-17); Creatinine Clearance Estimated 106 mL/min (50-200); Estimated Glomerular Filt Rate 65 ml/min (>60); GFR (African American) 79 ML/MIN (>60)
[2019-12-01 21:05] LABS: Anion Gap 13.9 mEq/L (5-15); Calcium 8.7 mg/dl (8.4-10.2); Carbon Dioxide 27 mmol/L (22.0-30.0); Glucose 103 mg/dl (74-100)
[2019-12-01 21:11] VITALS: BP 106/65; PULSE 74; RESP 18; O2SAT 97
[2019-12-01 21:22] LABS: Troponin I < 0.01 ng/ml (0.00-0.034)
--- NOTE | 2019-12-01 21:31 | PC.NURSE ---
Pt states nausea resolved after zofran
--- NOTE | 2019-12-01 21:37 | HMH.EDCP ---
ED Disposition Clinical Impression: Chest pain, Atypical chest pain, GERD (gastroesophageal reflux disease) Disposition: Home, Self-Care Condition on Discharge: Good Instructions: DI for Atypical Chest Pain, Gastroesophageal Reflux Disease (Alternative Therapy) Additional Instructions: Please follow-up with your primary care physician and get a stress test ordered out patiently. Please pickup driver your prescription for Carafate. Prescriptions: Sucralfate [Carafate 1gm Tab] 1 gm PO BID 30 Days #60 tab Transmission Status: Pending to [id number] Referrals: January Flores MD [Primary Care Provider] - - Critical Care Critical Care Time: No Attestation: On 12/01/19, the high probability of a clinically significant, sudden or life threatening deterioration of the following system(s) required my full and direct attention, intervention and personal management. The time I documented below is in addition to time spent performing reported procedures but includes the following listed in this critical care notation. Medical Decision Making - Medical Records Medical records reviewed: Yes: I reviewed the patient's medical records. - Reyes Inquiry Pt receiving controlled substance: No Vital Signs: 12/01/19 20:36 12/01/19 20:53 12/01/19 21:11 Temperature 98.6 F Temperature Source Oral Pulse Rate [Right Brachial] 89 78 74 Respiratory Rate 16 18 18 Blood Pressure [Right Arm] 134/70 131/71 106/65 L Blood Pressure Mean [Right Arm] 91 91 78 Blood Pressure Source [Right Arm] Automatic Cuff Blood Pressure Position [Right Arm] Sitting 02 Sat by Pulse Oximetry 96 97 97 Oxygen Delivery Method Room Air Room Air Room Air - Lab Data Lab results reviewed: Yes: I reviewed the patient's lab results. Lab Results 12/01/19 20:50: WBC 8.1, RBC 4.41, Hgb 13.1, Hct 39.2, MCV 88.9, MCH 29.7, MCHC 33.4, RDW 14.2, Plt Count 208, MPV 9.0, Neut % (Auto) 74.4, Lymph % (Auto) 19.2, [place] % (Auto) 3.0, Eos % (Auto) 2.9, Baso % (Auto) 0.4, Neut # (Auto) 6.1, Lymph # (Auto) 1.6, [place] # (Auto) 0.2, Eos # (Auto) 0.2, Baso # (Auto) 0.0 12/01/19 20:50: Sodium 138, Potassium 3.9, Chloride 101, Carbon Dioxide 27, Anion Gap 13.9, BUN 9, Creatinine 0.90, Estimated Creat Clear 106, Estimated GFR 65, Est GFR ( Amer) 79, Glucose 103 H, Calcium 8.7, Troponin I < 0.01 Result diagrams: 12/01/19 20:50 12/01/19 20:50 Orders (Tests/Meds): ED MEDICATIONS Generic Name Dose Route Start Last Admin Trade Name Freq PRN Reason Stop Dose Admin Sodium Chloride 1,000 mls @ 999 mls/hr 12/01/19 21:15 12/01/19 21:16 Sod Chlor 0.9% 1000ml Bag IV 12/01/19 22:15 999 mls/hr .Q1H1M SOUMYA Administration Discontinued Medications Generic Name Dose Route Start Last Admin Trade Name Freq PRN Reason Stop Dose Admin Ondansetron HCl 4 mg 12/01/19 21:09 12/01/19 21:16 Zofran 4mg/2ml Vial IV 12/01/19 21:10 4 mg ONCE ONE Administration ORDERS Category Date Time Status XR chest 2V Stat Exams 12/01/19 20:36 Taken Troponin I Q3H Lab 12/01/19 23:45 Ordered Troponin I Q3H Lab 12/02/19 02:45 Ordered Chest Pain HPI - General Chief Complaint: Chest Pain Stated Complaint: chest pain Time Seen by Provider: 12/01/19 21:37 Mode of Arrival: Ambulatory Source of Information: Patient Limitations: No Limitations Description of Symptoms (Recalled from ER Triage Doc. by RN): Patient reports centrailized chest pain that radiates to her back and left arm pain that started this morning. - History of Present Illness HPI narrative: 54-year-old female presents the emergency department complaining about some mild chest pain that started this morning and has been present since this morning. She states the pain is substernal and, radiates to the right and to the left and she felt some numbness in her arm this morning but does not have any at present. She would rates his pain 3 out of 10 classifies it as a burning sensation.
[2019-12-01 21:41] VITALS: BP 115/71; PULSE 73; RESP 18; O2SAT 93
[2019-12-01 22:19] VITALS: BP 103/65; PULSE 73; RESP 18; TEMP 37; O2SAT 96
== END 2019-12-01 22:22 | disposition home or self-care (01) ==
PROVIDERS: Emergency Provider Family Medicine; PCP Family Medicine
DX: R07.89 Other chest pain (principal); K21.9 Gastro-esophageal reflux disease without esophagitis; M79.7 Fibromyalgia; Z79.899 Other long term (current) drug therapy; Z91.040 Latex allergy status; Z88.8 Allergy status to other drugs, medicaments and biological substances; E03.9 Hypothyroidism, unspecified; Z90.49 Acquired absence of other specified parts of digestive tract; Z90.79 Acquired absence of other genital organ(s)
CPT/HCPCS: 71046; 80048; 84484; 85025; 93005; 96365; 96375; 99284; J2405

== ENCOUNTER 2020-04-06 16:32 | Emergency (ER) | payer BC, SELFPAY ==
[2020-04-06 16:33] VITALS: BP 140/72; PULSE 81; RESP 16; TEMP 36.8; O2SAT 99; BMI 39.4
--- NOTE | 2020-04-06 17:02 | HMH.EDUTC ---
[facility] Disposition Clinical Impression: Otitis media Qualifiers: Otitis media type: unspecified Laterality: bilateral Qualified Code(s): H66.93 - Otitis media, unspecified, bilateral Disposition: Home, Self-Care Condition on Discharge: Good Instructions: Middle Ear Infection, DI for Sinusitis, Fluticasone Nasal [place] Additional Instructions: *Monitor Temp, Over the counter Motrin or Tylenol as directed/as needed Tylenol every 4 hours and Motrin every 6 hours (as long as your family doctor has told you that you can take it) for fever or pain. and straight to ER if unable to lower temp less than 101.0 after medication given *Warm salt water gargles may help to soothe the throat *Throat Lozenges *Warm fluids like tea with honey may help to soothe the throat *Sleep elevated *Humidifier/Vaporizer *Flonase 2 sprays in each nostril daily but be aware that it may take 2-3 days before you notice improvement Follow up IMMEDIATELY for new or worsening symptoms or no Noticeable improvement over the next 48-72 hours. 911 for difficulty breathing or swallowing Prescriptions: Amoxicillin [Amoxicillin 875MG Tab] 875 mg PO Q12H #20 tab Transmission Status: Pending to [facility] Fluticasone Propionate [Flonase 50mcg nasal spray 16gm] 1 - 2 spr NS DAILY #1 bottle [facility]: [facility] Benzonatate [Tessalon [place]le 100mg Cap*] 100 mg PO TID PRN #15 cap PRN Reason: Cough Transmission Status: [facility] Referrals: PCP,No [Primary Care Provider] - As needed Time of Disposition: 17:13 Medical Decision Making - Reyes Inquiry Pt receiving controlled substance: No Reyes was queried for this patient: No Vital Signs: 04/06/20 16:33 Temperature 98.2 F Temperature Source Oral Pulse Rate [Right] 81 Respiratory Rate 16 Blood Pressure [Right Arm] 140/72 Blood Pressure Mean [Right Arm] 94 Blood Pressure Source [Right Arm] Automatic Cuff Blood Pressure Position [Right Arm] Sitting 02 Sat by Pulse Oximetry 99 Oxygen Delivery Method Room Air - Lab Data Lab results reviewed: Yes: I reviewed the patient's lab results. [facility] HPI - General Stated complaint: EARS, UPPER RESP, Time Seen by Provider: 04/06/20 17:02 Mode of Arrival: Ambulatory Source of Information: Patient Limitations: No Limitations Description of Symptoms (Recalled from Triage Doc. by RN): nausea, body aches, bilateral ear pain HEENT Symptoms (Recalled from RN notes): Yes (ear pain) Resp Symptoms (Recalled from RN notes): No Skin Symptoms (Recalled from RN notes): No MS Symptoms (Recalled from RN notes): No Functional Status (Recalled from RN notes): na - History of Present Illness Provider Complaint: Patient states that she has been having bilateral ear pain and pressure, sinus pain and pressure and nausea for several days States that she thought it may have been a virus so she waited but it has continued to get worse over the last week so today she was coughing still having bilateral ear pain and sinus pressure so she come in to get checked and wants to get checked for flu - Related Data Home Medications Medication Instructions Recorded Confirmed Amitriptyline HCl [Elavil 50mg 50 mg PO HS 12/04/17 02/07/18 tablet] Escitalopram Oxalate 30 mg PO HS 12/04/17 02/07/18 Gabapentin [Gabapentin 300mg Cap] 300 mg PO BID 12/04/17 02/07/18 Pantoprazole Sodium [Pantoprazole 40 mg PO DAILY 12/04/17 02/07/18 20mg Tab] Zolpidem Tartrate [Ambien 10mg 10 mg PO HS 12/04/17 02/07/18 tablet] Buspirone HCl [Buspirone 15 mg 15 mg PO BID 12/05/17 02/07/18 Tablets] Levothyroxine Sodium 100 mg PO DAILY 12/05/17 02/07/18 [Levothyroxine 100mcg (0.1MG) Tab] Previous Rx's Medication Instructions Recorded Nitrofurantoin Monohyd/M-Cryst 100 mg PO BID #10 capsule 02/07/18 [Macrobid 100 mg Capsule] Ondansetron [Zofran 4mg ODT] 4 mg PO Q8HP PRN #7 tab.rapdis 11/17/18 levoFLOXacin [Leva
[2020-04-06 17:16] VITALS: BP 142/74; PULSE 78; RESP 16; TEMP 36.6; O2SAT 98
[2020-04-06 19:09] LABS: UTC Influenza A Antigen Negative (Negative)
[2020-04-06 19:10] LABS: UTC Influenza B Antigen Negative (Negative)
== END 2020-04-06 17:17 | disposition home or self-care (01) ==
PROVIDERS: Emergency Provider Nurse Practitioner
DX: H66.93 Otitis media, unspecified, bilateral (principal); E03.9 Hypothyroidism, unspecified; M79.7 Fibromyalgia; Z79.899 Other long term (current) drug therapy
CPT/HCPCS: 87804; 99201

== ENCOUNTER 2020-04-13 18:32 | Emergency (ER) | payer BC, SELFPAY ==
[2020-04-13 19:05] VITALS: BP 130/92; PULSE 86; RESP 14; TEMP 36.4; O2SAT 96; BMI 34.4
--- NOTE | 2020-04-13 19:26 | HMH.EDUTC ---
[facility] [place] Clinical Impression: Otitis media Qualifiers: Otitis media type: suppurative Chronicity: acute Laterality: bilateral Recurrence: non-recurrent Spontaneous tympanic membrane rupture: without spontaneous rupture Qualified Code(s): H66.003 - Acute suppurative otitis media without spontaneous rupture of ear drum, bilateral Disposition: Home, Self-Care Condition on Discharge: Good Instructions: Middle Ear Infection Additional Instructions: Drink plenty of fluids. Take tylenol or ibuprofen for pain or fever. Take the medications as directed. Follow up with your regular doctor. GO TO THE ER FOR ANY WORSENING SYMPTOMS Keep taking the antibiotics that you are on already. Start the oral steroids tomorrow. Prescriptions: Fluconazole [Diflucan 150mg tab] 150 mg PO ONCE #1 tab Transmission Status: Received by [facility] methylPREDNISolone [Medrol] 4 mg PO DIRECTED 6 Days #21 tab.ds.pk Transmission Status: Received by [facility] Nystatin [Nystatin Cr 100,000 Units/GM 30GM] 1 applicatio TP BID 14 Days #1 tube Transmission Status: Received by [facility] Referrals: January Flores MD [Primary Care Provider] - Forms: Work/School Release Time of Disposition: 20:29 Medical Decision Making - Medical Records Medical records reviewed: No: I reviewed the patient's medical records. - Reyes Inquiry Pt receiving controlled substance: No Vital Signs: 04/13/20 19:05 04/13/20 20:25 Temperature 97.6 F 97.6 F Temperature Source Oral Pulse Rate 86 Pulse Rate [Right Brachial] 86 Respiratory Rate 14 14 Blood Pressure 130/92 H Blood Pressure [Right Arm] 130/92 H Blood Pressure Mean [Right Arm] 104 Blood Pressure Source [Right Arm] Automatic Cuff Blood Pressure Position [Right Arm] Sitting 02 Sat by Pulse Oximetry 96 Oxygen Delivery Method Room Air - Lab Data Lab Results 04/13/20 19:15: Urine Color Yellow, Urine Appearance Clear, Urine pH 6.0, Ur Specific [place] <= 1.005, Urine Protein Negative, Urine Glucose (UA) Negative, Urine Ketones Negative, Urine Blood Trace, Urine Nitrate Negative, Urine Bilirubin Negative, Urine Urobilinogen 0.2, Ur Leukocyte Esterase Trace Orders (Tests/Meds): ED MEDICATIONS Discontinued Medications Generic Name Dose Route Start Last Admin Trade Name Freq PRN Reason Stop Dose Admin Methylprednisolone Sodium Succinate 125 mg 04/13/20 20:13 04/13/20 20:17 Methylprednisolone Sod Succ 125mg Vial IM 04/13/20 20:14 125 mg ONCE ONE Administration ORDERS Category Date Time Status Urine Culture Routine Micro 04/13/20 19:00 [place] [facility] [place] - General Stated complaint: ears,Possible UTI Time Seen by Provider: 04/13/20 19:27 Mode of Arrival: Ambulatory Source of Information: Patient Limitations: No Limitations Description of Symptoms (Recalled from Triage Doc. by RN): PATIENT C/O BILATERAL EAR PAIN AND BURNING/ITCHING IN ANA AREA; WAS RECENTLY TREATED FOR UTI HEENT Symptoms (Recalled from RN notes): Yes Resp Symptoms (Recalled from RN notes): No Skin Symptoms (Recalled from RN notes): No MS Symptoms (Recalled from RN notes): No Functional Status (Recalled from RN notes): WNL - History of Present Illness Provider Complaint: She states that her ears are still hurting. She has been taking the medications as directed. - Related Data Home Medications Medication Instructions Recorded Confirmed Amitriptyline HCl [Elavil 50mg 50 mg PO HS 12/04/17 02/07/18 tablet] Escitalopram Oxalate 30 mg PO HS 12/04/17 02/07/18 Gabapentin [Gabapentin 300mg Cap] 300 mg PO BID 12/04/17 02/07/18 Pantoprazole Sodium [Pantoprazole 40 mg PO DAILY 12/04/17 02/07/18 20mg Tab] Zolpidem Tartrate [Ambien 10mg 10 mg PO HS 12/04/17 02/07/18 tablet] Buspirone HCl [Buspirone 15 mg 15 mg PO BID 12/05/17 02/07/18 Tablets] Levothyroxine Sodium 100 mg PO DAILY 12/05/17 02/07/18 [Levothyroxine 100m
[2020-04-13 19:27] LABS: Apearance,Urine Clear (Clear); Color,Urine Yellow (Yellow)
[2020-04-13 19:29] LABS: Specific Gravity, Urine <= 1.005 (1.005-1.030)
[2020-04-13 19:30] LABS: Bilirubin,Urine Negative (Negative); Blood, Urine Trace (Negative); Glucose,Urine (UA) Negative (Negative); Ketones,Urine Negative (Negative); Protein,Urine Negative (Negative); UTC Leukocyte Esterase,Urine Trace (Negative); UTC Nitrate,Urine Negative (Negative); Urobilinogen,Urine 0.2 EU/dl (0.2)
[2020-04-13 20:25] VITALS: BP 130/92; PULSE 86; RESP 14; TEMP 36.4; O2SAT 96
== END 2020-04-13 20:30 | disposition home or self-care (01) ==
PROVIDERS: Emergency Provider Nurse Practitioner Family; PCP Family Medicine
DX: H66.003 Acute suppurative otitis media without spontaneous rupture of ear drum, bilateral (principal); M79.7 Fibromyalgia; E03.9 Hypothyroidism, unspecified; Z91.040 Latex allergy status; Z79.899 Other long term (current) drug therapy
CPT/HCPCS: 81003; 87086; 96372; 99202

== ENCOUNTER 2020-06-22 21:24 | Emergency (ER) | payer BC, SELFPAY ==
--- NOTE | 2020-06-22 21:16 | ECG_ITS ---
APPROVED REPORT Exam: Resting ECG HR:85 bpm ECG Measurements Heart Rate 85 AXES NM 138 P 29 QRSd 78 QRS -2 QT 378 T 14 QTc 449 Conclusion Normal sinus rhythm Normal ECG Electronically signed by : Bill Bean, 06/23/2020 14:55:04
[2020-06-22 21:27] VITALS: BP 134/90; PULSE 80; RESP 16; TEMP 37; O2SAT 98; BMI 40.2
--- NOTE | 2020-06-22 21:36 | HMH.EDCP ---
ED Disposition Clinical Impression: Chest pain Qualifiers: Chest pain type: precordial pain Qualified Code(s): R07.2 - Precordial pain Disposition: Left Against Medical Advice Condition on Discharge: Good Instructions: DI for Chest Pain Additional Instructions: see card for follow up and return if any issues Referrals: PCP,No [Non-Staff] - - Critical Care Critical Care Time: No Attestation: On 06/22/20, the high probability of a clinically significant, sudden or life threatening deterioration of the following system(s) required my full and direct attention, intervention and personal management. The time I documented below is in addition to time spent performing reported procedures but includes the following listed in this critical care notation. Medical Decision Making - Medical Records Medical records reviewed: Yes: I reviewed the patient's medical records. - Reyes Inquiry Pt receiving controlled substance: No Vital Signs: 06/22/20 21:27 Temperature 98.6 F Temperature Source Oral Pulse Rate [Left] 80 Respiratory Rate 16 Blood Pressure [Right Arm] 134/90 Blood Pressure Mean [Right Arm] 104 Blood Pressure Source [Right Arm] Automatic Cuff Blood Pressure Position [Right Arm] Sitting 02 Sat by Pulse Oximetry 98 Oxygen Delivery Method Room Air - Lab Data Lab results reviewed: Yes: I reviewed the patient's lab results. Lab Results 06/22/20 21:28: WBC 7.4, RBC 4.42, Hgb 12.7, Hct 38.9, MCV 88.1, MCH 28.8, MCHC 32.6, RDW 14.2, Plt Count 227, MPV 8.6, Neut % (Auto) 63.1, Lymph % (Auto) 28.4, [place] % (Auto) 3.9, Eos % (Auto) 4.0, Baso % (Auto) 0.6, Neut # (Auto) 4.7, Lymph # (Auto) 2.1, [place] # (Auto) 0.3, Eos # (Auto) 0.3, Baso # (Auto) 0.0, ESR 91 H 06/22/20 21:28: Sodium 139, Potassium 4.3, Chloride 103, Carbon Dioxide 33 H, Anion Gap 7.3, BUN 14, Creatinine 1.10 H, Estimated Creat Clear 90, Estimated GFR 51 L, Est GFR ( Amer) 62, Glucose 102 H, Calcium 9.2, Total Bilirubin 0.4, Direct Bilirubin 0.2, Conjugated Bilirubin 0.0, Indirect Bilirubin 0.2, Unconjugated Bilirubin 0.2, AST 39 H, ALT 20, Alkaline Phosphatase 90, Troponin I < 0.01, C-Reactive Protein 14.8 H, Total Protein 7.5, Albumin 4.2, Amylase 58, Lipase 64, Procalcitonin 0.031 Result diagrams: 06/22/20 21:28 06/22/20 21:28 Orders (Tests/Meds): ED MEDICATIONS Generic Name Dose Route Start Last Admin Trade Name Freq PRN Reason Stop Dose Admin Sodium Chloride 1,000 mls @ 999 mls/hr 06/22/20 21:45 06/22/20 21:44 Sod Chlor 0.9% 1000ml Bag IV 06/22/20 22:45 999 mls/hr .Q1H1M SOUMYA Administration Sodium Chloride 8 ml 06/22/20 21:37 Sodium Chloride 0.9% 10ml Vial IV 07/22/20 21:36 NEEDED PRN dilute pepcid Sodium Chloride 10 ml 06/22/20 22:06 Sodium Chloride 0.9% 10ml Vial IV 07/22/20 22:05 NEEDED PRN to Dilute Lorazepam inj Discontinued Medications Generic Name Dose Route Start Last Admin Trade Name Freq PRN Reason Stop Dose Admin Aspirin 81 mg 06/22/20 21:37 06/22/20 21:44 Aspirin 81mg Chewable Tablet PO 06/22/20 21:38 81 mg ONCE ONE Administration Famotidine 20 mg 06/22/20 21:37 06/22/20 21:44 Famotidine 20mg/2ml Vial IV 06/22/20 21:38 20 mg ONCE ONE Administration Lorazepam 1 mg 06/22/20 22:06 06/22/20 22:09 Lorazepam 2mg/Ml Vial IV 06/22/20 22:07 1 mg ONCE ONE Administration Metoclopramide HCl 10 mg 06/22/20 21:37 06/22/20 21:44 Metoclopramide Hcl 10mg/2ml Vial IVP 06/22/20 21:38 10 mg ONCE ONE Administration Nitroglycerin 1 gm 06/22/20 21:37 06/22/20 21:44 Nitroglycerin 1 Gm Ointment TD 06/22/20 21:38 1 gm ONCE ONE Administration Ondansetron HCl 4 mg 06/22/20 21:37 06/22/20 21:44 Ondansetron 4mg/2ml Vial IV 06/22/20 21:38 4 mg ONCE ONE Administration ORDERS Category Date Time Status XR chest 2V Stat Exams 06/22/20 21:37 Taken Covid-19 Nasal PCR ([facility]) Routine Lab 06/22/20 22:15 Received Tropo
--- NOTE | 2020-06-22 21:37 | XR_ITS ---
PROCEDURE: XR CHEST 2V CLINICAL HISTORY: chest pain COMPARISON: CT AGCHEST CT angio chest from 12/04/2017 CR CXR2V XR chest 2V from 12/04/2017 CR XR CHEST 2V from 12/01/2019 FINDINGS: The cardiomediastinal silhouette and pulmonary vascularity are within normal limits. The lungs are clear without infiltrates, suspicious nodules, or pleural effusions. No acute bony abnormalities. IMPRESSION: No acute findings. Dictated by: Dr. Matt Moctezuma MD 06/23/2020 07:33 Dr. Matt Moctezuma MD in [place] 06/23/2020 07:33
--- NOTE | 2020-06-22 22:03 | PC.NURSE ---
called [facility] and requested records
[2020-06-22 22:04] LABS: Basophils % 0.6 % (0.1-2.0); Eosinophils # 0.3 K/mm3 (0.0-0.4); Hematocrit 38.9 % (37.0-47.0); Hemoglobin 12.7 g/dL (12.2-16.2); Lymphocytes # 2.1 K/mm3 (0.7-4.5); Lymphocytes % 28.4 % (10-50); Mean Corpuscular HGB Conc 32.6 g/dL (31.8-35.4); Mean Corpuscular Hemoglobin 28.8 pg (27.0-31.2); Mean Corpuscular Volume 88.1 fl (81-99); Mean Platelet Volume 8.6 fl (7.4-10.4); Monocytes # 0.3 K/mm3 (0.1-1.0); Monocytes % 3.9 % (1.7-9.3); Neutrophils # 4.7 K/mm3 (1.8-7.8); Neutrophils % 63.1 % (37.0-80.0); Platelet Count 227 K/mm3 (142-424); Red Blood Count 4.42 M/mm3 (4.20-5.40); Red Cell Distribution Width 14.2 % (11.5-17.5); White Blood Count 7.4 K/mm3 (4.8-10.8)
[2020-06-22 22:06] LABS: Chloride 103 mmol/L (98-107); Potassium 4.3 mmoL/L (3.5-5.1); Sodium 139 mmol/L (136-145)
[2020-06-22 22:08] LABS: Amylase 58 U/L (30-110)
[2020-06-22 22:09] LABS: Alanine Aminotransferase 20 U/L (12-78); Albumin Level 4.2 g/dl (3.5-5.0); Alkaline Phosphatase 90 U/L (38-126); Anion Gap 7.3 mEq/L (5-15); Aspartate Amino Transferase 39 U/L (14-36); Bilirubin,Direct 0.2 mg/dl (0.0-0.4); Bilirubin,Indirect 0.2 mg/dL (0.0-0.9); Bilirubin,Total 0.4 mg/dl (0.2-1.3); Bilirubin,Unconjugated 0.2 mg/dL (0.0-1.1); Blood Urea Nitrogen 14 mg/dl (7-17); Calcium 9.2 mg/dl (8.4-10.2); Carbon Dioxide 33 mmol/L (22.0-30.0); Creatinine Clearance Estimated 90 mL/min (50-200); Estimated Glomerular Filt Rate 51 ml/min (>60); GFR (African American) 62 ML/MIN (>60); Glucose 102 mg/dl (74-100); Lipase 64 U/L (23-300); Total Protein,Serum 7.5 g/dl (6.3-8.2)
[2020-06-22 22:15] LABS: C-Reactive Protein 14.8 mg/L (0-4)
[2020-06-22 22:29] LABS: Procalcitonin 0.031 ng/mL (0.0-2.0)
[2020-06-22 22:42] LABS: Troponin I < 0.01 ng/ml (0.00-0.034)
[2020-06-22 22:44] LABS: Erythrocyte Sedimentation Rate 91 mm/hr (0-30)
--- NOTE | 2020-06-22 22:55 | PC.NURSE ---
pt refusing to be admitted. Dr suarez and this RN explained the risk of going home AMA.
[2020-06-22 23:14] VITALS: BP 130/84; PULSE 76; RESP 18; TEMP 37; O2SAT 98
== END 2020-06-22 23:19 | disposition left against medical advice (07) ==
PROVIDERS: Emergency Provider Emergency Medicine; PCP Family Medicine
DX: Z20.822 Contact with and (suspected) exposure to COVID-19 (principal); R07.2 Precordial pain; M79.7 Fibromyalgia; E04.9 Nontoxic goiter, unspecified
CPT/HCPCS: 71046; 80048; 80076; 82150; 83690; 84145; 84484; 85025; 85651; 86140; 93005; 96365; 96375; 99283; J2405; U0003

== ENCOUNTER 2020-12-12 14:45 | Emergency (ER) | payer BC, SELFPAY ==
[2020-12-12 14:52] VITALS: BP 120/67; PULSE 76; RESP 19; TEMP 36.8; O2SAT 97; BMI 37.5
[2020-12-12 15:07] VITALS: BP 120/67; PULSE 76; RESP 19; TEMP 36.8; O2SAT 97
--- NOTE | 2020-12-12 15:28 | HMH.EDUTC ---
[facility] [place] Clinical Impression: Bronchitis Disposition: Home, Self-Care Condition on Discharge: Good Instructions: DI for Acute Bronchitis, DI for COVID-19 (Suspected or Confirmed ), Preventing the Spread of Coronavirus Discharge Instructions Additional Instructions: Drink plenty of fluids. Take tylenol or ibuprofen for pain or fever. Take the medications as directed. Follow up with your regular doctor. GO TO THE ER FOR ANY WORSENING SYMPTOMS Quarantine until you know the results of your covid-19 test. If it is positive, the health department should call you and give you further instructions about your length of Quarantine and other thing. The cough medication (promethazine dm) will make you drowsy, so don't drive or operate heavy machinery after taking it. Prescriptions: Promethazine/Dextromethorphan [Promethazine-Dm Syrup] 5 ml PO Q6HP PRN #240 syrup PRN Reason: Cough Transmission Status: Received by [id number] Benzonatate [Tessalon Perle 100mg Cap] 100 mg PO TIDP PRN #30 cap PRN Reason: Cough Transmission Status: Received by [id number] Azithromycin [Z-Rah 250mg Tab*] 250 mg PO UD DOSE PK #6 tab Transmission Status: Received by [id number] Referrals: Surinder Rocha [Primary Care Provider] - Time of Disposition: 15:44 Medical Decision Making - Medical Records Medical records reviewed: No: I reviewed the patient's medical records. - Reyes Inquiry Pt receiving controlled substance: No Vital Signs: 12/12/20 14:52 12/12/20 15:07 Temperature 98.2 F 98.2 F Temperature Source Oral Pulse Rate 76 Pulse Rate [Left] 76 Respiratory Rate 19 19 Blood Pressure 120/67 Blood Pressure [Right Arm] 120/67 Blood Pressure Mean [Right Arm] 84 02 Sat by Pulse Oximetry 97 Orders (Tests/Meds): ED MEDICATIONS Discontinued Medications Generic Name Dose Route Start Last Admin Trade Name Freq PRN Reason Stop Dose Admin Methylprednisolone Sodium Succinate 125 mg 12/12/20 15:28 12/12/20 15:32 Methylprednisolone Sod Succ 125mg Vial IM 12/12/20 15:29 125 mg ONCE ONE Administration [facility] [place] HPI - General Stated complaint: covid test Time Seen by Provider: 12/12/20 15:28 Mode of Arrival: Ambulatory Source of Information: Patient Limitations: No Limitations Description of Symptoms (Recalled from Triage Doc. by RN): Pt requesting Covid testing. Exposure and symptoms. congested, dry cough, body aches nausea HEENT Symptoms (Recalled from RN notes): No Resp Symptoms (Recalled from RN notes): No Skin Symptoms (Recalled from RN notes): No MS Symptoms (Recalled from RN notes): No Functional Status (Recalled from RN notes): wnl - History of Present Illness Provider Complaint: She states that she feels like she is getting bronchitis. She usually gets it pretty bad every fall. She was also exposed to covid-19 around 4 to 5 days. She denies fever, but she has had a nonproductive cough, body aches, and nasal congestion also. - Related Data Home Medications Medication Instructions Recorded Confirmed Amitriptyline HCl [Elavil 50mg 50 mg PO HS 12/04/17 06/22/20 tablet] Escitalopram Oxalate 30 mg PO HS 12/04/17 06/22/20 Gabapentin [Gabapentin 300mg Cap] 300 mg PO HS 12/04/17 06/22/20 Zolpidem Tartrate [Ambien 10mg 10 mg PO HS 12/04/17 06/22/20 tablet] Buspirone HCl [Buspirone 15 mg 15 mg PO BID 12/05/17 06/22/20 Tablets] Levothyroxine Sodium 100 mg PO DAILY 12/05/17 06/22/20 [Levothyroxine 100mcg (0.1MG) Tab] Fluticasone Propionate [Flonase 1 - 2 spr NS DAILY 06/22/20 06/22/20 50mcg nasal spray 16gm] Gabapentin [Gabapentin 100mg Cap] 100 mg PO DAILY 06/22/20 06/22/20 Sucralfate [Carafate 1gm Tab] 1 gm PO BID 06/22/20 06/22/20 Previous Rx's Medication Instructions Recorded Ondansetron [Zofran 4mg ODT] 4 mg PO Q8HP PRN #7 tab.rapdis 11/17/18 Azithromycin [Z-Rah 250mg Tab*] 250 mg PO UD DOSE PK #6 tab 12/12/20
== END 2020-12-12 15:45 | disposition home or self-care (01) ==
PROVIDERS: Emergency Provider Nurse Practitioner Family; PCP Family Medicine
DX: J20.9 Acute bronchitis, unspecified (principal); Z20.822 Contact with and (suspected) exposure to COVID-19; Z79.899 Other long term (current) drug therapy
CPT/HCPCS: 96372; 99202; G0463; U0003

== ENCOUNTER 2021-07-23 20:33 | Emergency (ER) | payer BC, SELFPAY ==
[2021-07-23 20:34] VITALS: BP 139/75; PULSE 90; RESP 16; TEMP 36.8; O2SAT 99; BMI 35.5
--- NOTE | 2021-07-23 20:40 | ECG_ITS ---
APPROVED REPORT Exam: Resting ECG HR:91 bpm ECG Measurements Heart Rate 91 AXES AZ 144 P 37 QRSd 91 QRS 37 QT 376 T 57 QTc 425 Conclusion SINUS RHYTHM INDETERMINATE AXIS INCOMPLETE RIGHT BUNDLE BRANCH BLOCK [90+ ms QRS DURATION, TERMINAL R IN V1/V2, 40+ ms S IN I/aVL/V4/V5/V6] BORDERLINE ECG INTERPRETATION BASED ON A DEFAULT AGE OF 40 YEARS UNCONFIRMED REPORT Electronically signed by : Bill Bean MD 07/24/2021 16:34:18
--- NOTE | 2021-07-23 21:22 | HMH.EDNEU ---
ED Disposition Clinical Impression: Arm paresthesia, left, Left leg paresthesias Disposition: Home, Self-Care Condition on Discharge: Good Instructions: DI for Numbness/Tingling Additional Instructions: see pcp in am Referrals: Surinder Rocha [Primary Care Provider] - - Critical Care Critical Care Time: No Attestation: On 07/23/21, the high probability of a clinically significant, sudden or life threatening deterioration of the following system(s) required my full and direct attention, intervention and personal management. The time I documented below is in addition to time spent performing reported procedures but includes the following listed in this critical care notation. Medical Decision Making - Medical Records Medical records reviewed: Yes: I reviewed the patient's medical records. - Reyes Inquiry Pt receiving controlled substance: No Vital Signs: 07/23/21 20:34 07/23/21 21:36 Temperature 98.3 F Temperature Source Oral Pulse Rate 82 Pulse Rate [Left] 90 Respiratory Rate 16 Blood Pressure 132/78 Blood Pressure [Right Arm] 139/75 Blood Pressure Mean [Right Arm] 96 02 Sat by Pulse Oximetry 99 95 Oxygen Delivery Method Room Air Room Air - Lab Data Lab results reviewed: Yes: I reviewed the patient's lab results. Lab Results 07/23/21 20:52: WBC 5.1, RBC 4.58, Hgb 13.1, Hct 40.9, MCV 89.4, MCH 28.6, MCHC 32.1, RDW 14.8, Plt Count 257, MPV 9.6, Neut % (Auto) 67.7, Lymph % (Auto) 23.1, [place] % (Auto) 4.2, Eos % (Auto) 3.9, Baso % (Auto) 1.1, Neut # (Auto) 3.5, Lymph # (Auto) 1.2, [place] # (Auto) 0.2, Eos # (Auto) 0.2, Baso # (Auto) 0.1, ESR 18 07/23/21 20:52: Sodium 140, Potassium 3.7, Chloride 101, Carbon Dioxide 33 H, Anion Gap 9.7, BUN 9, Creatinine 0.80, Estimated Creat Clear 126, Estimated GFR 74, Est GFR ( Amer) 89, Glucose 112 H, Calcium 8.7, Total Bilirubin 0.4, AST 35, ALT 24, Alkaline Phosphatase 108, Troponin I < 0.01, C-Reactive Protein 14.3 H, Total Protein 7.4, Albumin 4.4, Globulin 3.0, Albumin/Globulin Ratio 1.5 07/23/21 20:52: PT 10.8, INR 0.95 07/23/21 20:52: SARS-CoV-2 (PCR) Not detected, Influenza A Untype (PCR) Not detected, Influenza Type B (PCR) Not detected Result diagrams: 07/23/21 20:52 07/23/21 20:52 Orders (Tests/Meds): ED MEDICATIONS Discontinued Medications Generic Name Dose Route Start Last Admin Trade Name Freq PRN Reason Stop Dose Admin Iopamidol 100 ml 07/23/21 22:29 07/23/21 22:29 Iopamidol-370 (76%);100ml Bottle IV 07/23/21 22:30 100 ml ONCE ONE Administration Sodium Chloride 50 ml 07/23/21 22:29 07/23/21 22:29 0.9 % Sodium Chloride 50 Ml Vial IV 07/23/21 22:30 50 ml ONCE ONE Administration Sodium Chloride 10 ml 07/23/21 22:29 07/23/21 22:29 Sodium Chloride 0.9% 10ml Syr (Rad Only) IV 07/23/21 22:30 10 ml ONCE ONE Administration ORDERS Category Date Time Status CT angio head with & w/o Stat Exams 07/23/21 21:42 Taken Troponin I Q3H Lab 07/24/21 00:35 Received Troponin I Q3H Lab 07/24/21 03:45 Ordered - Radiology Data #1 Image(s): Chest Image Reviewed: Yes I have reviewed radiologist's interpretation Preliminary Findings: Normal/NAD - CT Data CT Scan: Head, Other (cta head/neck neg ) Time Received: 00:[address] Reviewed: Yes: I have viewed the radiologist's interpretation Preliminary Findings: Normal/NAD - ECG Data Tracing #1 Normal Sinus Rhythm: Yes Ischemic changes: non-specific ST-T wave changes Medical Decision Narrative: pt with stable exam and does not wish transfer at this time and has appt with pcp in am - neg workup in ed Neuro HPI - General Chief Complaint: Weakness Stated Complaint: numbness across head and left arm Time Seen by Provider: 07/23/21 20:45 Mode of Arrival: Ambulatory Source of Information: Patient, Medical Record Limitations: No Limitations Description of Symptoms (Recalled from ER Triage Doc. by RN): pt states that she has been having nu
--- NOTE | 2021-07-23 21:32 | XR_ITS ---
PROCEDURE INFORMATION: Exam: XR Chest Exam date and time: 07/23/2021 10:04 PM Age: 56 years old Clinical indication: Other: Numbness TECHNIQUE: Imaging protocol: XR of the chest. Views: 2 views. COMPARISON: CR XR CHEST 2V 06/22/2020 9:46 PM FINDINGS: Lungs: No consolidation. Mild scarring in the left lung base. Granulomatous change. Pleural spaces: Unremarkable. No pleural effusion. No pneumothorax. Heart/Mediastinum: Unremarkable. No cardiomegaly. Bones/joints: Unremarkable. IMPRESSION: No acute findings.
--- NOTE | 2021-07-23 21:32 | CT_ITS ---
PROCEDURE INFORMATION: Exam: CT Angiography Neck With Contrast Exam date and time: 07/23/2021 10:06 PM Age: 56 years old Clinical indication: Numbness TECHNIQUE: Imaging protocol: Computed tomography angiography of the neck with contrast. 3D rendering (Not supervised by radiologist): MIP and/or 3D reconstructed images were created by the technologist. Radiation optimization: All CT scans at this facility use at least one of these dose optimization techniques: automated exposure control; mA and/or kV adjustment per patient size (includes targeted exams where dose is matched to clinical indication); or iterative reconstruction. Contrast material: ISOVUE; Contrast volume: 100 ml; Contrast route: INTRAVENOUS (IV); COMPARISON: [facility] CT angio chest 12/04/2017 5:01 PM FINDINGS: Right common carotid artery: No stenosis. No dissection or occlusion. Right internal carotid artery: No stenosis of the extracranial segment. No dissection or occlusion. Right external carotid artery: No occlusion or stenosis of the origin. Left common carotid artery: No stenosis. No dissection or occlusion. Left internal carotid artery: No stenosis of the extracranial segment. No dissection or occlusion. Left external carotid artery: No occlusion or stenosis of the origin. Right vertebral artery: No stenosis. No dissection or occlusion. Left vertebral artery: No stenosis. No dissection or occlusion. Soft tissues: Normal. No significant soft tissue swelling. Bones/joints: No acute fracture. IMPRESSION: No stenosis or occlusion. REFERENCES: NASCET CRITERIA. The degree of internal carotid artery stenosis is based on NASCET criteria. Normal is no stenosis. Mild is less than 50% stenosis. Moderate is 50-69% stenosis. Severe is 70% to 99% stenosis. Total occlusion is no detectable patent lumen.
[2021-07-23 21:36] VITALS: BP 132/78; PULSE 82; O2SAT 95
[2021-07-23 21:39] LABS: Coronavirus 19, PCR Not Detected (NotDetected); Influenza A, PCR Not Detected (NotDetected); Influenza B, PCR Not Detected (NotDetected)
--- NOTE | 2021-07-23 21:42 | CT_ITS ---
PROCEDURE INFORMATION: Exam: CT Head Without Contrast Exam date and time: 07/23/2021 10:06 PM Age: 56 years old Clinical indication: Numbness / parasthesia TECHNIQUE: Imaging protocol: Computed tomography of the head without contrast. Radiation optimization: All CT scans at this facility use at least one of these dose optimization techniques: automated exposure control; mA and/or kV adjustment per patient size (includes targeted exams where dose is matched to clinical indication); or iterative reconstruction. COMPARISON: [facility] CT head/brain wo con 02/07/2018 10:03 PM FINDINGS: Brain: Atrophy and chronic small vessel ischemic changes. No hemorrhage. No mass effect or midline shift. Cerebral ventricles: No ventriculomegaly. Paranasal sinuses: Visualized sinuses are unremarkable. No fluid levels. Mastoid air cells: Visualized mastoid air cells are well aerated. Bones/joints: Unremarkable. No acute fracture. Soft tissues: Unremarkable. IMPRESSION: Chronic changes in the brain but no acute intracranial abnormality.
[2021-07-23 21:44] LABS: Basophils # 0.1 K/mm3 (0-0.2); Basophils % 1.1 % (0.1-2.0); Eosinophils # 0.2 K/mm3 (0.0-0.4); Eosinophils % 3.9 % (0.1-12.0); Hematocrit 40.9 % (37.0-47.0); Hemoglobin 13.1 g/dL (12.2-16.2); Lymphocytes # 1.2 K/mm3 (0.7-4.5); Lymphocytes % 23.1 % (10-50); Mean Corpuscular HGB Conc 32.1 g/dL (31.8-35.4); Mean Corpuscular Hemoglobin 28.6 pg (27.0-31.2); Mean Corpuscular Volume 89.4 fl (81-99); Mean Platelet Volume 9.6 fl (7.4-10.4); Monocytes # 0.2 K/mm3 (0.1-1.0); Monocytes % 4.2 % (1.7-9.3); Neutrophils # 3.5 K/mm3 (1.8-7.8); Neutrophils % 67.7 % (37.0-80.0); Platelet Count 257 K/mm3 (142-424); Red Blood Count 4.58 M/mm3 (4.20-5.40); Red Cell Distribution Width 14.8 % (11.5-17.5); White Blood Count 5.1 K/mm3 (4.8-10.8)
[2021-07-23 21:50] LABS: Alanine Aminotransferase 24 U/L (12-78); Albumin Level 4.4 g/dl (3.5-5.0); Albumin/Globulin Ratio 1.5 (1.1-1.8); Alkaline Phosphatase 108 U/L (38-126); Anion Gap 9.7 mEq/L (5-15); Aspartate Amino Transferase 35 U/L (14-36); Bilirubin,Total 0.4 mg/dl (0.2-1.3); Blood Urea Nitrogen 9 mg/dl (7-17); Calcium 8.7 mg/dl (8.4-10.2); Carbon Dioxide 33 mmol/L (22.0-30.0); Chloride 101 mmol/L (98-107); Creatinine Clearance Estimated 126 mL/min (50-200); Estimated Glomerular Filt Rate 74 ml/min (>60); GFR (African American) 89 ML/MIN (>60); Glucose 112 mg/dl (74-100); INR 0.95 (0.9-1.1); Potassium 3.7 mmoL/L (3.5-5.1); Prothrombin Time 10.8 seconds (10.1-12.5); Sodium 140 mmol/L (136-145); Total Protein,Serum 7.4 g/dl (6.3-8.2)
[2021-07-23 21:55] LABS: C-Reactive Protein 14.3 mg/L (0-4)
[2021-07-23 22:10] LABS: Troponin I < 0.01 ng/ml (0.00-0.034)
[2021-07-23 22:42] LABS: Erythrocyte Sedimentation Rate 18 mm/hr (0-30)
[2021-07-24 01:07] VITALS: BP 130/75; PULSE 78; RESP 18; TEMP 36.8; O2SAT 98
[2021-07-24 01:18] LABS: Troponin I < 0.01 ng/ml (0.00-0.034)
== END 2021-07-24 01:16 | disposition home or self-care (01) ==
PROVIDERS: Emergency Provider Emergency Medicine; PCP Family Medicine
DX: R20.0 Anesthesia of skin (principal); E03.9 Hypothyroidism, unspecified; M79.7 Fibromyalgia
CPT/HCPCS: 70496; 70498; 71046; 80053; 84484; 85025; 85610; 85651; 86140; 93005; 99284; C9803; Q9967; U0003; U0005

== ENCOUNTER 2022-01-19 20:24 | Emergency (ER) | payer BC, SELFPAY ==
[2022-01-19 20:54] VITALS: BP 125/58; PULSE 76; RESP 16; TEMP 37.2; O2SAT 96; BMI 37.5
--- NOTE | 2022-01-19 21:12 | HMH.EDGENADL ---
Discharge Plan Disposition Patient Disposition: Home, Self-Care Chief Complaint: PAIN Prescriptions Prescriptions: No Action amitriptyline 50 MG tablet 50 mg PO HS gabapentin 300 MG Capsule 300 mg PO HS zolpidem 10 MG tablet 10 mg PO HS escitalopram oxalate 20 MG tablet 30 mg PO HS levothyroxine 100 MCG tablet 100 mg PO DAILY buspirone 15 MG tablet 15 mg PO BID ondansetron 4 MG tablet,disintegrating 4 mg PO Q8HP PRN (Reason: Nausea) Qty: 7 0RF gabapentin 100 MG capsule 100 mg PO DAILY sucralfate 1 GM tablet 1 gm PO BID fluticasone propionate 120 SPR/BOT bottle 1 - 2 spr NS DAILY promethazine-DM 120 ML syrup 5 ml PO Q6HP PRN (Reason: Cough) Qty: 240 0RF azithromycin 250 MG tablet 250 mg PO UD DOSE PK Qty: 6 0RF Rx Instructions: Take two (2) tablets today, then one (1) tablet days #2 thru #5 benzonatate 100 MG capsule 100 mg PO TIDP PRN (Reason: Cough) Qty: 30 0RF Referrals Follow up/Referrals: Surinder Rocha [Primary Care Provider] - See instructions Clinical Impressions Clinical Impression: Neuropathy, cervical (radicular) Instructions Patient Instructions: DI for Chronic Pain -- Adult Discharge ED Provider: Sav [facility] HPI General Chief complaint: PAIN Stated complaint: weakness in hands, blisters in mouth Time Seen by Provider: 01/19/22 21:12 Mode of Arrival: Ambulatory Source of Information: Patient and Medical Record Limitations: No Limitations Description of Symptoms (Recalled from ER Triage Doc. by RN): Pt reports numbness in hands, middle back pain, neck pain, and being clumsy for 6+ months. Pt says she had an epidural a week and a half ago for back and neck pain. History of Present Illness HPI narrative: pt with concern to throat feeling of swelling after neck epidural about 10 days ago - these sx x 1 week and the tingling and clumsy in upper ext has been there for months - also has element of chronic pain Onset (ago): day(s) Location: neck Severity: moderate Consistency: constant Associated symptoms: denies other symptoms Treatments prior to arrival: none Related Data Home Medications Medication Instructions Recorded Confirmed amitriptyline 50 mg tablet 50 mg PO HS MOOD 12/04/17 06/22/20 escitalopram oxalate 20 mg tablet 30 mg PO HS Depression 12/04/17 06/22/20 gabapentin 300 mg capsule 300 mg PO HS fibromylagia 12/04/17 06/22/20 zolpidem 10 mg tablet 10 mg PO HS Insomnia 12/04/17 06/22/20 buspirone 15 mg tablet 15 mg PO BID Anxiety 12/05/17 06/22/20 levothyroxine 100 mcg tablet 100 mg PO DAILY THYROID 12/05/17 06/22/20 fluticasone propionate 50 1 - 2 spr NS DAILY Allergy symptoms 06/22/20 06/22/20 mcg/actuation nasal spray,suspension gabapentin 100 mg capsule 100 mg PO DAILY fiberomyalgia 06/22/20 06/22/20 sucralfate 1 gram tablet 1 gm PO BID GERD 06/22/20 06/22/20 Previous Rx's Medication Instructions Recorded ondansetron 4 mg disintegrating 4 mg PO Q8HP PRN Nausea ##7 11/17/18 tablet azithromycin 250 mg tablet 250 mg PO UD DOSE PK #6 tabs 12/12/20 benzonatate 100 mg capsule 100 mg PO TIDP PRN Cough #30 caps 12/12/20 promethazine-DM 6.25 mg-15 mg/5 mL 5 ml PO Q6HP PRN Cough ##240 12/12/20 oral syrup Allergies Allergy/AdvReac Type Severity Reaction Status Date / Time duloxetine [From Cymbalta] Allergy Mild Verified 12/12/20 15:06 latex Allergy Mild Verified 12/12/20 15:06 pregabalin [From Lyrica] Allergy Verified 12/12/20 15:06 PFSH PFSH Social History (System 04/11/20 @ 12:29 by Madie Ortiz) Smoking Status: Never smoker second hand exposure: No alcohol intake: never current occupational status: other Travel in the last 8 weeks: None household members: family housing: house current occupational exposures/hazards: No caffeine: Yes ROS Obtained: Yes All systems reviewed & no additional complaints except as documented
--- NOTE | 2022-01-19 21:18 | CT_ITS ---
PROCEDURE INFORMATION: Exam: CT Neck With Contrast Exam date and time: 01/19/2022 9:44 PM Age: 56 years old Clinical indication: Neck pain and throat pain; Additional info: Pain and swelling soft tissue neck and throat and mouth TECHNIQUE: Imaging protocol: Computed tomography of the neck with contrast. Radiation optimization: All CT scans at this facility use at least one of these dose optimization techniques: automated exposure control; mA and/or kV adjustment per patient size (includes targeted exams where dose is matched to clinical indication); or iterative reconstruction. Contrast material: ISOVUE; Contrast volume: 75 ml; Contrast route: IV; COMPARISON: CT ANGIO NECK 07/23/2021 10:06 PM FINDINGS: Pharynx: Unremarkable. No significant tonsillar enlargement. Larynx: Unremarkable. Epiglottis is normal. Prevertebral and retropharyngeal spaces: Unremarkable. Salivary glands: Normal. Glands are normal in size. Thyroid: Normal. No enlarged or calcified nodules. Lymph nodes: Unremarkable. No lymphadenopathy. Trachea: Visualized trachea is unremarkable. Lungs: Unremarkable as visualized. Bones/joints: Unremarkable. No acute fracture. Soft tissues: Unremarkable. No significant soft tissue swelling. Other findings: No mass or abscess. IMPRESSION: No mass or abscess.
--- NOTE | 2022-01-19 21:18 | CT_ITS ---
PROCEDURE INFORMATION: Exam: CT Cervical Spine Without Contrast Exam date and time: 01/19/2022 9:40 PM Age: 56 years old Clinical indication: Neck pain and other: Pain and tingling in left arm and throat and mouth pain and soft tissue swelling neck TECHNIQUE: Imaging protocol: Computed tomography of the cervical spine without contrast. Radiation optimization: All CT scans at this facility use at least one of these dose optimization techniques: automated exposure control; mA and/or kV adjustment per patient size (includes targeted exams where dose is matched to clinical indication); or iterative reconstruction. COMPARISON: CT ANGIO NECK 07/23/2021 10:06 PM FINDINGS: Bones/joints: No cervical fracture or subluxation. Straightening of normal cervical lordosis. This can indicate muscle spasm, or be voluntary positioning. Moderate degenerative change posterior facets C3-C4 on the right and C2-C3 and C4-C5 on the left. No CT evidence of critical stenosis. Lungs: Lung apices are normal. Soft tissues: See Bones/joints finding. IMPRESSION: 1. No cervical fracture or subluxation. 2. Straightening of normal cervical lordosis. This can indicate muscle spasm, or be voluntary positioning. 3. Moderate degenerative change posterior facets C3-C4 on the right and C2-C3 and C4-C5 on the left. No CT evidence of critical stenosis.
[2022-01-19 22:00] LABS: Basophils # 0.1 K/mm3 (0-0.2); Basophils % 0.7 % (0.1-2.0); Eosinophils # 0.3 K/mm3 (0.0-0.4); Eosinophils % 3.2 % (0.1-12.0); Hematocrit 38.3 % (37.0-47.0); Hemoglobin 12.2 g/dL (12.2-16.2); Lymphocytes # 1.7 K/mm3 (0.7-4.5); Lymphocytes % 19.7 % (10-50); Mean Corpuscular HGB Conc 31.8 g/dL (31.8-35.4); Mean Corpuscular Hemoglobin 27.6 pg (27.0-31.2); Mean Corpuscular Volume 86.8 fl (81-99); Mean Platelet Volume 9.1 fl (7.4-10.4); Monocytes # 0.2 K/mm3 (0.1-1.0); Monocytes % 2.8 % (1.7-9.3); Neutrophils # 6.1 K/mm3 (1.8-7.8); Neutrophils % 73.5 % (37.0-80.0); Platelet Count 262 K/mm3 (142-424); Red Blood Count 4.42 M/mm3 (4.20-5.40); White Blood Count 8.3 K/mm3 (4.8-10.8)
[2022-01-19 22:11] LABS: Alanine Aminotransferase 20 U/L (12-78); Albumin Level 3.9 g/dl (3.5-5.0); Albumin/Globulin Ratio 1.3 (1.1-1.8); Alkaline Phosphatase 119 U/L (38-126); Anion Gap 10.7 mEq/L (5-15); Aspartate Amino Transferase 29 U/L (14-36); Bilirubin,Total 0.1 mg/dl (0.2-1.3); Blood Urea Nitrogen 13 mg/dl (7-17); Calcium 8.7 mg/dl (8.4-10.2); Carbon Dioxide 32 mmol/L (22.0-30.0); Chloride 99 mmol/L (98-107); Creatinine Clearance Estimated 119 mL/min (50-200); Estimated Glomerular Filt Rate 65 ml/min (>60); GFR (African American) 78 ML/MIN (>60); Globulin 2.9 g/dL (1.3-3.2); Glucose 95 mg/dl (74-100); Potassium 3.7 mmoL/L (3.5-5.1); Sodium 138 mmol/L (136-145); Total Protein,Serum 6.8 g/dl (6.3-8.2)
[2022-01-19 22:16] LABS: C-Reactive Protein 22.9 mg/L (0-4)
[2022-01-19 22:34] LABS: Erythrocyte Sedimentation Rate 29 mm/hr (0-30)
[2022-01-19 23:54] VITALS: BP 127/86; PULSE 62; RESP 16; TEMP 37.1; O2SAT 96
== END 2022-01-20 00:01 | disposition home or self-care (01) ==
PROVIDERS: Emergency Provider Emergency Medicine; PCP Family Medicine
DX: S00.522A Blister (nonthermal) of oral cavity, initial encounter (principal); M54.12 Radiculopathy, cervical region; M54.6 Pain in thoracic spine; R53.1 Weakness; R22.1 Localized swelling, mass and lump, neck; R20.2 Paresthesia of skin; R05.9 Cough, unspecified; R11.0 Nausea; G89.29 Other chronic pain; Z79.51 Long term (current) use of inhaled steroids; Z79.899 Other long term (current) drug therapy; Z88.0 Allergy status to penicillin; Z91.040 Latex allergy status
CPT/HCPCS: 70491; 72125; 80053; 85025; 85651; 86140; 96374; 99285; Q9967

== ENCOUNTER 2022-01-30 13:06 | Emergency (ER) | payer BC, SELFPAY ==
--- NOTE | 2022-01-30 13:35 | EXP.UTC ---
Discharge Plan Disposition Patient Disposition: Home, Self-Care Condition: Good Prescriptions Prescriptions: New promethazine-DM 6.25-15 mg/5 mL Syrup 5 ml PO Q6H PRN (Reason: Cough) Qty: 240 0RF azithromycin [Zithromax] 250 mg tablet 250 mg PO UD DOSE PK Qty: 6 0RF Rx Instructions: Take two (2) tablets today, then one (1) tablet days #2 thru #5 benzonatate [benzonatate] 100 mg capsule 100 mg PO TIDP PRN (Reason: Cough) Qty: 30 0RF methylprednisolone 4 mg Tablets,Dose Pack 4 mg PO DIRECTED Qty: 21 0RF No Action amitriptyline 50 MG tablet 50 mg PO HS gabapentin 300 MG capsule 300 mg PO HS zolpidem 10 MG tablet 10 mg PO HS escitalopram oxalate 20 MG tablet 30 mg PO HS levothyroxine 100 MCG tablet 100 mg PO DAILY buspirone 15 MG tablet 15 mg PO BID ondansetron 4 MG tablet,disintegrating 4 mg PO Q8HP PRN (Reason: Nausea) Qty: 7 0RF gabapentin 100 MG capsule 100 mg PO DAILY sucralfate 1 GM tablet 1 gm PO BID fluticasone propionate 120 SPR/BOT bottle 1 - 2 spr NS DAILY promethazine-DM 120 ML syrup 5 ml PO Q6HP PRN (Reason: Cough) Qty: 240 0RF azithromycin 250 MG tablet 250 mg PO UD DOSE PK Qty: 6 0RF Rx Instructions: Take two (2) tablets today, then one (1) tablet days #2 thru #5 benzonatate 100 MG capsule 100 mg PO TIDP PRN (Reason: Cough) Qty: 30 0RF Referrals Follow up/Referrals: Surinder Rocha [Primary Care Provider] - See instructions Activity Restrictions/Add. Instructions Additional Instructions/Restrictions: Drink plenty of fluids. Take tylenol or ibuprofen for pain or fever. Take the medications as directed. Follow up with your regular doctor. GO TO THE ER FOR ANY WORSENING SYMPTOMS Quarantine until you know the results of your covid-19 test. Notify your school or workplace of your results and follow their instructions regarding return to work/school. Clinical Impressions Clinical Impression: Viral syndrome, Bronchitis Stand Alone Forms Stand Alone Forms: Work/School Release Instructions Patient Instructions: DI for Viral Syndrome, Preventing the Spread of Coronavirus Discharge Instructions Discharge ED Provider: Shar Olivares [facility] [place] HPI General Stated complaint: Sore throat, congestion, [place] Time Seen by Provider: 01/30/22 13:35 History of Present Illness Provider Complaint: She states that for the past 2 days she has had sore throat, chillls, low grade fever and she has felt bad. Related Data Home Medications Medication Instructions Recorded Confirmed amitriptyline 50 mg tablet 50 mg PO HS MOOD 12/04/17 06/22/20 escitalopram oxalate 20 mg tablet 30 mg PO HS Depression 12/04/17 06/22/20 gabapentin 300 mg capsule 300 mg PO HS fibromylagia 12/04/17 06/22/20 zolpidem 10 mg tablet 10 mg PO HS Insomnia 12/04/17 06/22/20 buspirone 15 mg tablet 15 mg PO BID Anxiety 12/05/17 06/22/20 levothyroxine 100 mcg tablet 100 mg PO DAILY THYROID 12/05/17 06/22/20 fluticasone propionate 50 1 - 2 spr NS DAILY Allergy symptoms 06/22/20 06/22/20 mcg/actuation nasal spray,suspension gabapentin 100 mg capsule 100 mg PO DAILY fiberomyalgia 06/22/20 06/22/20 sucralfate 1 gram tablet 1 gm PO BID GERD 06/22/20 06/22/20 Previous Rx's Medication Instructions Recorded ondansetron 4 mg disintegrating 4 mg PO Q8HP PRN Nausea ##7 11/17/18 tablet azithromycin 250 mg tablet 250 mg PO UD DOSE PK #6 tabs 12/12/20 benzonatate 100 mg capsule 100 mg PO TIDP PRN Cough #30 caps 12/12/20 promethazine-DM 6.25 mg-15 mg/5 mL 5 ml PO Q6HP PRN Cough ##240 12/12/20 oral syrup azithromycin 250 mg tablet 250 mg PO UD DOSE PK #6 tabs 01/30/22 (Zithromax) benzonatate 100 mg capsule 100 mg PO TIDP PRN Cough #30 caps 01/30/22 methylprednisolone 4 mg tablets in 4 mg PO DIRECTED #21 tabs 01/30/22 a dose pack promethazine-DM 6.25 mg-15 mg/5 mL 5 ml PO Q6H PRN Cough #240 mL 01/30/22 or
[2022-01-30 13:36] VITALS: BP 121/80; PULSE 68; RESP 20; TEMP 37.9; O2SAT 98; BMI 37.5
[2022-01-30 13:49] LABS: UTC Strep Screen (Rapid) Negative (Negative)
[2022-01-30 15:00] VITALS: BP 121/80; PULSE 68; RESP 20; TEMP 37.9; O2SAT 98
== END 2022-01-30 15:00 | disposition home or self-care (01) ==
PROVIDERS: Emergency Provider Nurse Practitioner Family; PCP Family Medicine
DX: U07.1 COVID-19 (principal); J40 Bronchitis, not specified as acute or chronic
CPT/HCPCS: 87880; C9803; J0696; U0003; U0005

== ENCOUNTER 2022-02-05 18:33 | Emergency (ER) | payer BC, SELFPAY ==
--- NOTE | 2022-02-05 18:48 | EXP.UTC ---
Discharge Plan Disposition Patient Disposition: Home, Self-Care Condition: Good Prescriptions Prescriptions: New Paxlovid (EUA) 300 mg (150 mg x 2)-100 mg tablets,dose pack See Rx Instructions PO .COMPLEX Qty: 30 0RF Rx Instructions: take TWO 150 mg tablets of nirmatrelvir with ONE 100 mg tablet of ritonavir twice daily for 5 days promethazine-DM 6.25-15 mg/5 mL Syrup 5 ml PO Q6H PRN (Reason: Cough) Qty: 240 0RF No Action promethazine-DM 6.25-15 mg/5 mL Syrup 5 ml PO Q6H PRN (Reason: Cough) Qty: 240 0RF azithromycin [Zithromax] 250 mg tablet 250 mg PO UD DOSE PK Qty: 6 0RF Rx Instructions: Take two (2) tablets today, then one (1) tablet days #2 thru #5 benzonatate [benzonatate] 100 mg capsule 100 mg PO TIDP PRN (Reason: Cough) Qty: 30 0RF methylprednisolone 4 mg Tablets,Dose Pack 4 mg PO DIRECTED Qty: 21 0RF amitriptyline 50 MG tablet 50 mg PO HS gabapentin 300 MG capsule 300 mg PO HS zolpidem 10 MG tablet 10 mg PO HS escitalopram oxalate 20 MG tablet 30 mg PO HS levothyroxine 100 MCG tablet 100 mg PO DAILY buspirone 15 MG tablet 15 mg PO BID ondansetron 4 MG tablet,disintegrating 4 mg PO Q8HP PRN (Reason: Nausea) Qty: 7 0RF gabapentin 100 MG capsule 100 mg PO DAILY sucralfate 1 GM tablet 1 gm PO BID fluticasone propionate 120 SPR/BOT bottle 1 - 2 spr NS DAILY promethazine-DM 120 ML syrup 5 ml PO Q6HP PRN (Reason: Cough) Qty: 240 0RF azithromycin 250 MG tablet 250 mg PO UD DOSE PK Qty: 6 0RF Rx Instructions: Take two (2) tablets today, then one (1) tablet days #2 thru #5 benzonatate 100 MG capsule 100 mg PO TIDP PRN (Reason: Cough) Qty: 30 0RF Referrals Follow up/Referrals: Surinder Rocha [Primary Care Provider] - See instructions Activity Restrictions/Add. Instructions Additional Instructions/Restrictions: It's important to get proper nutrition, stay active as much as you can, and take steps to relieve stress and anxiety as you recover. Rest and drink plenty of fluids. Acetaminophen (Tylenol) and ibuprofen (Advil, Motrin) help reduce?fever.. A lukewarm bath or sponge bath may help cool a fever. Keep taking medicine -- otherwise your temperature might go back up. For a?sore throat, gargle several times a day with warm salt water (1/2 tsp or 3 grams of salt in 1 cup or 240 milliliters of water). Drink warm liquids such as tea, or lemon tea with honey. Suck on hard candies or throat lozenges. Use a vaporizer or take a steamy shower to increase moisture in the air, reduce nasal congestion, and help soothe a dry throat and?cough. Saline spray can also help reduce nasal congestion. To help relieve?diarrhea, drink 8 to 10 glasses of clear liquids, such as water, diluted fruit juices, and clear soups to make up for fluid loss. Avoid dairy products, fried foods, caffeine, alcohol, and carbonated drinks. If you have?nausea, eat small meals with bland foods. Avoid foods with strong smells. Try to drink 8 to 10 glasses of water or clear fluids every day to stay hydrated. Do not smoke, and stay away from secondhand smoke. Follow up with your primary care physician. GO TO THE ER FOR ANY WORSENING SYMPTOMS OR CONCERNS Clinical Impressions Clinical Impression: COVID-19 Stand Alone Forms Stand Alone Forms: Work/School Release Instructions Patient Instructions: Coronavirus Disease 2019, Preventing the Spread of Coronavirus Discharge Instructions Discharge ED Provider: Shar Olivares [facility] [place] General Stated complaint: sore throa,ear Pain congestion Time Seen by Provider: 02/05/22 18:47 History of Present Illness Provider Complaint: She is back to f/u with her symptoms of malaise, cough, chest congestion, low grade fever, and body aches. She states that she has not got better despite taking the medications. Related Data Home Medications Medication Instructions Record
[2022-02-05 18:56] VITALS: BP 114/63; PULSE 63; RESP 16; TEMP 36.8; O2SAT 97; BMI 37.5
--- NOTE | 2022-02-05 19:22 | XR_ITS ---
PROCEDURE INFORMATION: Exam: XR Chest Exam date and time: 02/05/2022 7:17 PM Age: 56 years old Clinical indication: Cough and other: Congestion; Additional info: Cough, congestion TECHNIQUE: Imaging protocol: Radiologic exam of the chest. Views: 2 views. COMPARISON: CR XR CHEST 2V 07/23/2021 10:04 PM FINDINGS: Lungs: Unremarkable. No consolidation. Pleural spaces: Unremarkable. No pleural effusion. No pneumothorax. Heart/Mediastinum: Unremarkable. No cardiomegaly. Bones/joints: Unremarkable. IMPRESSION: No acute findings.
[2022-02-05 20:03] VITALS: BP 114/63; PULSE 63; RESP 16; TEMP 36.8
== END 2022-02-05 20:05 | disposition home or self-care (01) ==
PROVIDERS: Emergency Provider Nurse Practitioner Family; PCP Family Medicine
DX: U07.1 COVID-19 (principal)
CPT/HCPCS: 71046; 99212; G0463

== ENCOUNTER 2022-07-02 11:41 | Emergency (ER) | payer BC, SELFPAY ==
[2022-07-02 11:55] VITALS: BP 120/71; PULSE 73; RESP 20; TEMP 37.1; O2SAT 96; BMI 35.5
--- NOTE | 2022-07-02 12:15 | EXP.UTC ---
Discharge Plan Disposition Patient Disposition: Home, Self-Care Condition: Good Prescriptions Prescriptions: New promethazine-DM 6.25-15 mg/5 mL syrup 5 ml PO Q6H PRN (Reason: cough) Qty: 150 0RF azithromycin [Zithromax Z-Rah] 250 mg tablet See Rx Instructions .ROUTE .COMPLEX 5 Days Qty: 6 0RF Rx Instructions: For 250 mg dose pack: take 500 mg today (day 1), then 250 mg for 4 days (days 2-5) No Action promethazine-DM 6.25-15 mg/5 mL Syrup 5 ml PO Q6H PRN (Reason: Cough) Qty: 240 0RF azithromycin [Zithromax] 250 mg tablet 250 mg PO UD DOSE PK Qty: 6 0RF Rx Instructions: Take two (2) tablets today, then one (1) tablet days #2 thru #5 benzonatate [benzonatate] 100 mg capsule 100 mg PO TIDP PRN (Reason: Cough) Qty: 30 0RF methylprednisolone 4 mg Tablets,Dose Pack 4 mg PO DIRECTED Qty: 21 0RF amitriptyline 50 MG tablet 50 mg PO HS gabapentin 300 MG capsule 300 mg PO HS zolpidem 10 MG tablet 10 mg PO HS escitalopram oxalate 20 MG tablet 30 mg PO HS levothyroxine 100 MCG tablet 100 mg PO DAILY buspirone 15 MG tablet 15 mg PO BID ondansetron 4 MG tablet,disintegrating 4 mg PO Q8HP PRN (Reason: Nausea) Qty: 7 0RF gabapentin 100 MG capsule 100 mg PO DAILY sucralfate 1 GM tablet 1 gm PO BID fluticasone propionate 120 SPR/BOT bottle 1 - 2 spr NS DAILY promethazine-DM 120 ML syrup 5 ml PO Q6HP PRN (Reason: Cough) Qty: 240 0RF azithromycin 250 MG tablet 250 mg PO UD DOSE PK Qty: 6 0RF Rx Instructions: Take two (2) tablets today, then one (1) tablet days #2 thru #5 benzonatate 100 MG capsule 100 mg PO TIDP PRN (Reason: Cough) Qty: 30 0RF Paxlovid (EUA) 300 mg (150 mg x 2)-100 mg tablets,dose pack See Rx Instructions PO .COMPLEX Qty: 30 0RF Rx Instructions: take TWO 150 mg tablets of nirmatrelvir with ONE 100 mg tablet of ritonavir twice daily for 5 days promethazine-DM 6.25-15 mg/5 mL Syrup 5 ml PO Q6H PRN (Reason: Cough) Qty: 240 0RF Referrals Follow up/Referrals: Surinder Rocha [Primary Care Provider] - See instructions Activity Restrictions/Add. Instructions Additional Instructions/Restrictions: Start antibiotic today. Be sure to complete entire prescription even if feeling better Monitor temp. Tylenol every 4 hours as needed and / or ibuprofen every 6 hours as needed ( As long as your primary care physician has told you that it ok to take both. For fever/aches/pains ER if no less than 101 despite Tylenol or Motrin Humidifier/vaporizer or hot steamy shower *Tessalon Perles will not cause drowsiness but use at bedtime to help stop cough so that you may get some rest. Follow up IMMEDIATELY for new or worsening of symptoms OR no noticeable improvement over the next 48-72 hours. 911 immediately for any life threatening symptoms such as chest pain or difficulty breathing Clinical Impressions Clinical Impression: Bronchitis Sinusitis Qualifiers: Sinusitis location: unspecified location Chronicity: unspecified Qualified Code(s): J32.9 - Chronic sinusitis, unspecified Stand Alone Forms Stand Alone Forms: Work/School Release Instructions Patient Instructions: Sinusitis, Acute Bronchitis, DI for Sinusitis Discharge ED Provider: Mayte Berry [facility] General Stated complaint: head and chest congestion, soa Mode of Arrival: Ambulatory Source of Information: Patient Limitations: No Limitations Time Seen by Provider: 07/02/22 12:18 Description of Symptoms (Recalled from Triage Doc. by RN): PATIENT C/O HEAD AND CHEST CONGESTION, SOA, COUGH, BODY ACHES AND HEADACHE X 1 WEEK HEENT Symptoms (Recalled from RN notes): Yes Resp Symptoms (Recalled from RN notes): Yes Skin Symptoms (Recalled from RN notes): No MS Symptoms (Recalled from RN notes): No Functional Status (Recalled from RN notes): WNL History of Prese
[2022-07-02 12:42] VITALS: BP 120/71; PULSE 73; RESP 20; TEMP 37.1; O2SAT 96
== END 2022-07-02 12:46 | disposition home or self-care (01) ==
PROVIDERS: Emergency Provider Nurse Practitioner; PCP Family Medicine
DX: J40 Bronchitis, not specified as acute or chronic (principal); J32.9 Chronic sinusitis, unspecified
CPT/HCPCS: 96372; 99212; 99214; G0463; J0696

== ENCOUNTER 2022-10-24 21:29 | Emergency (ER) | payer BC, SELFPAY ==
[2022-10-24 21:43] VITALS: BP 126/92; PULSE 78; RESP 16; TEMP 36.8; O2SAT 96; BMI 35.9
--- NOTE | 2022-10-24 21:59 | CT_ITS ---
PROCEDURE INFORMATION: Exam: CT Abdomen And Pelvis Without Contrast Exam date and time: 10/24/2022 10:55 PM Age: 57 years old Clinical indication: Constipation; Additional info: Abd pain, 4 day constipation TECHNIQUE: Imaging protocol: Computed tomography of the abdomen and pelvis without contrast. Radiation optimization: All CT scans at this facility use at least one of these dose optimization techniques: automated exposure control; mA and/or kV adjustment per patient size (includes targeted exams where dose is matched to clinical indication); or iterative reconstruction. REPORTING DATA: Count of CT and Cardiac NM exams in prior 12 months: This patient has received 2 known CTs and 0 known cardiac nuclear medicine studies in the 12 months prior to the current study. COMPARISON: ABDPELW CT abdomen pelvis w con 11/17/2018 9:55 PM FINDINGS: Liver: Normal. No mass. Gallbladder and bile ducts: Cholecystectomy. Pancreas: Normal. No ductal dilation. Spleen: Normal. No splenomegaly. Adrenal glands: Normal. No mass. Kidneys and ureters: 3.3 cm right renal cyst. Additional simple small right renal cyst. No obstructive uropathy. Punctate nonobstructing bilateral renal stones. Stomach and bowel: Unremarkable. No obstruction. No mucosal thickening. Appendix: Normal appendix. Intraperitoneal space: Unremarkable. No free air. No significant fluid collection. Vasculature: Unremarkable. No abdominal aortic aneurysm. Lymph nodes: Unremarkable. No enlarged lymph nodes. Urinary bladder: Unremarkable as visualized. Reproductive: Hysterectomy. Bones/joints: Unremarkable. No acute fracture. Soft tissues: Unremarkable. IMPRESSION: No acute findings in the abdomen pelvis COMMENTS: Consistent with the [employer]'s Incidental Findings Committee white paper (J Am To Radiol 2018): Any incidental renal lesion less than 1 cm or classified as too small to characterize, or any incidental cystic renal lesion characterized as simple-appearing, is likely benign. No follow-up imaging is recommended for these lesions per consensus recommendations based on imaging criteria.
--- NOTE | 2022-10-24 22:00 | PC.NURSE ---
pt has been triaged. I s/w regarding pt and she verbally gave orders for CT A/P wo, CBC, CMP, UA, and Saline lock.
[2022-10-24 22:08] LABS: Basophils % 0.4 % (0.1-2.0); Eosinophils # 0.4 K/mm3 (0.0-0.4); Eosinophils % 4.6 % (0.1-12.0); Hematocrit 37.9 % (37.0-47.0); Lymphocytes # 1.7 K/mm3 (0.7-4.5); Lymphocytes % 22.6 % (10-50); Mean Corpuscular HGB Conc 31.8 g/dL (31.8-35.4); Mean Corpuscular Hemoglobin 26.4 pg (27.0-31.2); Mean Corpuscular Volume 83.1 fl (81-99); Mean Platelet Volume 8.8 fl (7.4-10.4); Monocytes # 0.2 K/mm3 (0.1-1.0); Monocytes % 3.1 % (1.7-9.3); Neutrophils # 5.3 K/mm3 (1.8-7.8); Neutrophils % 69.3 % (37.0-80.0); Platelet Count 272 K/mm3 (142-424); Red Blood Count 4.56 M/mm3 (4.20-5.40); White Blood Count 7.6 K/mm3 (4.8-10.8)
[2022-10-24 22:09] LABS: Chloride 98 mmol/L (98-107); Sodium 138 mmol/L (136-145)
[2022-10-24 22:11] LABS: Blood Urea Nitrogen 9 mg/dl (7-17); Creatinine Clearance Estimated 101 mL/min (50-200); Estimated Glomerular Filt Rate 57 ml/min (>60); GFR (African American) 69 ML/MIN (>60)
[2022-10-24 22:12] LABS: Alanine Aminotransferase 22 U/L (12-78); Albumin/Globulin Ratio 1.3 (1.1-1.8); Alkaline Phosphatase 117 U/L (38-126); Aspartate Amino Transferase 34 U/L (14-36); Bilirubin,Total 0.2 mg/dl (0.2-1.3); Calcium 8.6 mg/dl (8.4-10.2); Carbon Dioxide 33 mmol/L (22.0-30.0); Globulin 3.2 g/dL (1.3-3.2); Glucose 96 mg/dl (74-100); Total Protein,Serum 7.2 g/dl (6.3-8.2)
[2022-10-24 22:33] LABS: Microscopic, Urine URINE MICROSCOPIC (MICROSCOPIC)
[2022-10-24 22:36] LABS: Appearance,Urine CLEAR (Clear); Bilirubin,Urine Negative (Negative); Blood, Urine Negative (Negative); Color,Urine YELLOW (Yellow); Glucose,Urine (UA) Negative (Negative); Ketones,Urine Negative (Negative); Leukocyte Esterase,Urine TRACE (Negative); Nitrate,Urine Negative (Negative); Protein,Urine Negative (Negative); Specific Gravity, Urine <= 1.005 (1.005-1.030); Urobilinogen,Urine 0.2 EU/dl (0.2)
--- NOTE | 2022-10-24 22:44 | PC.NURSE ---
2218 CHECKED ON PATIENT, COLLECTED URINE AND SENT TO LAB
[2022-10-24 22:47] LABS: Squamous Epithelial Cell,Urine Occasional #/hpf (0-5)
--- NOTE | 2022-10-24 22:50 | PC.NURSE ---
ROUNDED ON PATIENT, UPDATED ON ROOM STATUS, PATIENT GIVEN BLANKET NO OTHER NEEDS AT THIS TIME
--- NOTE | 2022-10-24 23:12 | PC.NURSE ---
Rounded on patient at this time. Waiting in triage room, updated her on wait times. Pt advised she was ok and had no new needs.
[2022-10-24 23:20] VITALS: BP 134/69; PULSE 80; RESP 16; O2SAT 96
--- NOTE | 2022-10-24 23:20 | PC.NURSE ---
pt moved to room nine at this time
[2022-10-25 01:13] VITALS: BP 137/90; PULSE 84; RESP 18; TEMP 36.6
--- NOTE | 2022-10-25 02:59 | HMH.EDABDPAI ---
Discharge Plan Disposition Patient Disposition: Home, Self-Care Condition: Good Prescriptions Prescriptions: New dicyclomine 20 mg tablet 20 mg PO QID PRN (Reason: abdominal pain) Qty: 20 0RF No Action promethazine-DM 6.25-15 mg/5 mL Syrup 5 ml PO Q6H PRN (Reason: Cough) Qty: 240 0RF azithromycin [Zithromax] 250 mg tablet 250 mg PO UD DOSE PK Qty: 6 0RF Rx Instructions: Take two (2) tablets today, then one (1) tablet days #2 thru #5 benzonatate [benzonatate] 100 mg capsule 100 mg PO TIDP PRN (Reason: Cough) Qty: 30 0RF methylprednisolone 4 mg Tablets,Dose Pack 4 mg PO DIRECTED Qty: 21 0RF amitriptyline 50 MG tablet 50 mg PO HS gabapentin 300 MG capsule 300 mg PO HS zolpidem 10 MG tablet 10 mg PO HS escitalopram oxalate 20 MG tablet 30 mg PO HS levothyroxine 100 MCG tablet 100 mg PO DAILY buspirone 15 MG tablet 15 mg PO BID ondansetron 4 MG tablet,disintegrating 4 mg PO Q8HP PRN (Reason: Nausea) Qty: 7 0RF gabapentin 100 MG capsule 100 mg PO DAILY sucralfate 1 GM tablet 1 gm PO BID fluticasone propionate 120 SPR/BOT bottle 1 - 2 spr NS DAILY promethazine-DM 120 ML syrup 5 ml PO Q6HP PRN (Reason: Cough) Qty: 240 0RF azithromycin 250 MG tablet 250 mg PO UD DOSE PK Qty: 6 0RF Rx Instructions: Take two (2) tablets today, then one (1) tablet days #2 thru #5 benzonatate 100 MG capsule 100 mg PO TIDP PRN (Reason: Cough) Qty: 30 0RF Paxlovid 300 mg (150 mg x 2)-100 mg tablets,dose pack See Rx Instructions PO .COMPLEX Qty: 30 0RF Rx Instructions: take TWO 150 mg tablets of nirmatrelvir with ONE 100 mg tablet of ritonavir twice daily for 5 days promethazine-DM 6.25-15 mg/5 mL Syrup 5 ml PO Q6H PRN (Reason: Cough) Qty: 240 0RF promethazine-DM 6.25-15 mg/5 mL syrup 5 ml PO Q6H PRN (Reason: cough) Qty: 150 0RF azithromycin [Zithromax Z-Rah] 250 mg tablet See Rx Instructions .ROUTE .COMPLEX 5 Days Qty: 6 0RF Rx Instructions: For 250 mg dose pack: take 500 mg today (day 1), then 250 mg for 4 days (days 2-5) Referrals Follow up/Referrals: Surinder Rocha [Primary Care Provider] - See instructions Activity Restrictions/Add. Instructions Additional Instructions/Restrictions: You came in for abdominal pain and flank pain. CT shows some stool but there is no bowel obstruction or impaction. I am sending you home on some magnesium citrate to take now when you get home and I am writing you some Bentyl for cramping and continue your MiraLAX, Senokot and use stool softener and follow-up the primary care doctor as an outpatient. Clinical Impressions Clinical Impression: Abdominal pain, Constipation Instructions Patient Instructions: DI for Acute Abdominal Pain Discharge ED Provider: Kim Washington Abdominal Pain HPI General Chief Complaint: Abdominal Pain Stated Complaint: trouble with bowel movements,4 days since last Time Seen by Provider: 10/25/22 00:41 Mode of Arrival: Ambulatory Source of Information: Patient Limitations: No Limitations Description of Symptoms (Recalled from ER Triage Doc. by RN): patient reports no bowel movement x 4 days. Reports nausea, no vomiting. C/o abd pain that radiates into back History of Present Illness HPI narrative: Patient is a 57-year-old female who is complaining about abdominal pain. Patient stated she has a history of chronic constipation. And she feels like her abdomen is bloated and pressure in the anterior abdomen and having some flank pain. She has no nausea vomiting or diarrhea. Patient stated that her last bowel movement was last Friday. She has been taking some MiraLAX, and Senokot and nothing is helping. No fevers and chills she has had a good appetite MD complaint: abdominal pain and flank pain Onset (ago): day(s) Consistency: constant Location: diffuse Severity: moderate Severity scale (1-10): 8 Quality
== END 2022-10-25 01:17 | disposition home or self-care (01) ==
PROVIDERS: Emergency Provider Emergency Medicine; PCP Family Medicine
DX: R10.84 Generalized abdominal pain (principal); K59.00 Constipation, unspecified
CPT/HCPCS: 74176; 80053; 81001; 85025; 99283; 99284

== ENCOUNTER 2022-10-27 09:26 | Emergency (ER) | payer BC, SELFPAY ==
[2022-10-27 09:28] VITALS: BP 149/79; PULSE 79; RESP 16; TEMP 36.8; O2SAT 98; BMI 34.4
[2022-10-27 09:34] VITALS: BP 149/79; PULSE 78; RESP 18; O2SAT 97
--- NOTE | 2022-10-27 09:35 | CT_ITS ---
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 Radiation optimization: All CT scans at this facility use at least one of these dose optimization techniques: automated exposure control; mA and/or kV adjustment per patient size (includes targeted exams where dose is matched to clinical indication); or iterative reconstruction. Contrast material: ISOVUE; Contrast volume: 75 ml; Contrast route: IV; REPORTING DATA: Count of CT and Cardiac NM exams in prior 12 months: This patient has received 3 known CTs and 0 known cardiac nuclear medicine studies in the 12 months prior to the current study. COMPARISON: CT ABDOMEN PELVIS WO CON 10/24/2022 10:55 PM FINDINGS: Lungs: Minor atelectatic changes left lung base. Liver: Liver is unremarkable. No mass or enlargement detected. Gallbladder and bile ducts: Gallbladder has been removed. Bile ducts are not appreciably dilated. Pancreas: Unremarkable. Main pancreatic duct is not significantly dilated. Spleen: There are scattered calcified granulomas within the spleen, longstanding, otherwise spleen is unremarkable. Adrenal glands: Normal. No mass. Kidneys and ureters: 2 right renal cysts unchanged likely benign based on density readings. Left kidney is unremarkable. Stomach and bowel: Moderate degree of retained stool throughout the large bowel. No evidence of bowel obstruction. Appendix: No evidence of appendicitis. Intraperitoneal space: Small fat containing epigastric ventral wall hernia. Second small fat containing ventral wall hernia more inferiorly with adjacent nodular calcification, stable. Vasculature: Unremarkable. No abdominal aortic aneurysm. Lymph nodes: Unremarkable. No enlarged lymph nodes. Urinary bladder: Unremarkable as visualized. Reproductive: Uterus has been removed. Bones/joints: Unremarkable. No acute fracture. Soft tissues: See Intraperitoneal space finding. IMPRESSION: 1. No acute findings within the abdomen or pelvis. 2. Moderate degree of retained stool throughout the large bowel. Please correlate for constipation. 3. Additional nonemergent findings as above.
[2022-10-27 09:41] LABS: Microscopic, Urine URINE MICROSCOPIC (MICROSCOPIC)
--- NOTE | 2022-10-27 09:52 | HMH.EDGENADL ---
Discharge Plan Disposition Patient Disposition: Home, Self-Care Condition: Good Prescriptions Prescriptions: New nitrofurantoin monohyd/m-cryst [Macrobid] 100 mg capsule 100 mg PO BID 5 Days Qty: 10 0RF Rx Instructions: must administer with a meal/food metoclopramide HCl [Reglan] 10 mg tablet 10 mg PO Q6H PRN (Reason: nausea and vomiting) 7 Days Qty: 28 0RF No Action promethazine-DM 6.25-15 mg/5 mL Syrup 5 ml PO Q6H PRN (Reason: Cough) Qty: 240 0RF azithromycin [Zithromax] 250 mg tablet 250 mg PO UD DOSE PK Qty: 6 0RF Rx Instructions: Take two (2) tablets today, then one (1) tablet days #2 thru #5 benzonatate [benzonatate] 100 mg capsule 100 mg PO TIDP PRN (Reason: Cough) Qty: 30 0RF methylprednisolone 4 mg Tablets,Dose Pack 4 mg PO DIRECTED Qty: 21 0RF amitriptyline 50 MG tablet 50 mg PO HS gabapentin 300 MG capsule 300 mg PO HS zolpidem 10 MG tablet 10 mg PO HS escitalopram oxalate 20 MG tablet 30 mg PO HS levothyroxine 100 MCG tablet 100 mg PO DAILY buspirone 15 MG tablet 15 mg PO BID ondansetron 4 MG tablet,disintegrating 4 mg PO Q8HP PRN (Reason: Nausea) Qty: 7 0RF gabapentin 100 MG capsule 100 mg PO DAILY sucralfate 1 GM tablet 1 gm PO BID fluticasone propionate 120 SPR/BOT bottle 1 - 2 spr NS DAILY promethazine-DM 120 ML syrup 5 ml PO Q6HP PRN (Reason: Cough) Qty: 240 0RF azithromycin 250 MG tablet 250 mg PO UD DOSE PK Qty: 6 0RF Rx Instructions: Take two (2) tablets today, then one (1) tablet days #2 thru #5 benzonatate 100 MG capsule 100 mg PO TIDP PRN (Reason: Cough) Qty: 30 0RF Paxlovid 300 mg (150 mg x 2)-100 mg tablets,dose pack See Rx Instructions PO .COMPLEX Qty: 30 0RF Rx Instructions: take TWO 150 mg tablets of nirmatrelvir with ONE 100 mg tablet of ritonavir twice daily for 5 days promethazine-DM 6.25-15 mg/5 mL Syrup 5 ml PO Q6H PRN (Reason: Cough) Qty: 240 0RF promethazine-DM 6.25-15 mg/5 mL syrup 5 ml PO Q6H PRN (Reason: cough) Qty: 150 0RF azithromycin [Zithromax Z-Rah] 250 mg tablet See Rx Instructions .ROUTE .COMPLEX 5 Days Qty: 6 0RF Rx Instructions: For 250 mg dose pack: take 500 mg today (day 1), then 250 mg for 4 days (days 2-5) dicyclomine 20 mg tablet 20 mg PO QID PRN (Reason: abdominal pain) Qty: 20 0RF Referrals Follow up/Referrals: Surinder Rocha [Primary Care Provider] - See instructions Instructions Patient Instructions: DI for Acute Abdominal Pain Discharge ED Provider: Xavier Blackwell General Adult HPI General Chief complaint: Abdominal Pain Stated complaint: stomach pain Time Seen by Provider: 10/27/22 09:35 Mode of Arrival: Ambulatory Source of Information: Patient Limitations: No Limitations Description of Symptoms (Recalled from ER Triage Doc. by RN): 57 yo F presents to ED with c/o abdominal pain and constipation ongoing for the last 7 days. pt states that she has been taking OTC medications and has had no successful bowel movement. pt states that she feels constipated. 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 Patient states that she has had abdominal/back pain since 1 week prior to arrival. On 10/20, patient had large volume bowel movement which was not constipated or diarrhea. Since that time, has been passing gas, but has not had bowel movement. Is having severe, cramping bilateral flank pain that radiates forward into her abdomen. Has abdominal distention. Has not been vomiting, but also has been nauseated. No fevers or chills, dysuria or hematuria, urgency, but has had frequency of urination. Nothing partic
[2022-10-27 10:13] LABS: Appearance,Urine CLEAR (Clear); Bilirubin,Urine Negative (Negative); Blood, Urine Negative (Negative); Color,Urine YELLOW (Yellow); Glucose,Urine (UA) Negative (Negative); Ketones,Urine Negative (Negative); Leukocyte Esterase,Urine 2+ (Negative); Nitrate,Urine Negative (Negative); PH,Urine 7.5 (5.0-8.5); Protein,Urine Negative (Negative)
[2022-10-27 10:30] VITALS: BP 101/60; PULSE 70; O2SAT 96
[2022-10-27 10:33] LABS: Bacteria,Urine Trace /lpf
[2022-10-27 10:43] LABS: Basophils % 0.4 % (0.1-2.0); Eosinophils # 0.2 K/mm3 (0.0-0.4); Eosinophils % 4.9 % (0.1-12.0); Hematocrit 36.6 % (37.0-47.0); Hemoglobin 11.5 g/dL (12.2-16.2); Lymphocytes # 1.1 K/mm3 (0.7-4.5); Lymphocytes % 25.5 % (10-50); Mean Corpuscular HGB Conc 31.3 g/dL (31.8-35.4); Mean Corpuscular Hemoglobin 25.9 pg (27.0-31.2); Mean Corpuscular Volume 82.6 fl (81-99); Mean Platelet Volume 8.9 fl (7.4-10.4); Monocytes # 0.2 K/mm3 (0.1-1.0); Neutrophils # 2.7 K/mm3 (1.8-7.8); Neutrophils % 65.1 % (37.0-80.0); Platelet Count 248 K/mm3 (142-424); Red Blood Count 4.44 M/mm3 (4.20-5.40); Red Cell Distribution Width 15.2 % (11.5-17.5); White Blood Count 4.2 K/mm3 (4.8-10.8)
[2022-10-27 10:45] LABS: Chloride 103 mmol/L (98-107); Potassium 4.2 mmoL/L (3.5-5.1); Sodium 140 mmol/L (136-145)
[2022-10-27 10:47] LABS: Alanine Aminotransferase 23 U/L (12-78); Aspartate Amino Transferase 36 U/L (14-36); Blood Urea Nitrogen 9 mg/dl (7-17); Creatinine Clearance Estimated 121 mL/min (50-200); Estimated Glomerular Filt Rate 74 ml/min (>60); GFR (African American) 89 ML/MIN (>60)
[2022-10-27 10:48] LABS: Albumin Level 3.7 g/dl (3.5-5.0); Albumin/Globulin Ratio 1.2 (1.1-1.8); Alkaline Phosphatase 99 U/L (38-126); Anion Gap 11.2 mEq/L (5-15); Bilirubin,Total 0.2 mg/dl (0.2-1.3); Calcium 8.3 mg/dl (8.4-10.2); Carbon Dioxide 30 mmol/L (22.0-30.0); Globulin 3.1 g/dL (1.3-3.2); Glucose 96 mg/dl (74-100); Lactic Acid 1.2 mmol/L (0.7-2.1); Lipase 30 U/L (23-300); Total Protein,Serum 6.8 g/dl (6.3-8.2)
--- NOTE | 2022-10-27 10:48 | PC.NURSE ---
pt in room with tap galan at BS
[2022-10-27 11:31] VITALS: BP 114/73
[2022-10-27 12:10] VITALS: BP 129/56; PULSE 61; RESP 16; TEMP 36.7
== END 2022-10-27 12:12 | disposition home or self-care (01) ==
PROVIDERS: Emergency Provider Emergency Medicine; PCP Family Medicine
DX: R10.9 Unspecified abdominal pain (principal); K59.00 Constipation, unspecified; K31.84 Gastroparesis; Z85.831 Personal history of malignant neoplasm of soft tissue
CPT/HCPCS: 74177; 80053; 81001; 83605; 83690; 85025; 87086; 96361; 96374; 96375; 99284; 99285; Q9967

== ENCOUNTER 2022-12-28 08:50 | Emergency (ER) | payer BC, SELFPAY ==
[2022-12-28] VITALS (8 sets, daily range): BP systolic 114–151; BP diastolic 65–89; PULSE 64–80; RESP 16–20; TEMP 36.6–36.8; O2SAT 94–99; BMI 34.4
--- NOTE | 2022-12-28 09:01 | PC.NURSE ---
Dr. Troy at BS
--- NOTE | 2022-12-28 09:11 | CT_ITS ---
PROCEDURE INFORMATION: Exam: CT Lumbar Spine Without Contrast Exam date and time: 12/28/2022 10:21 AM Age: 57 years old Clinical indication: Low back pain; Additional info: Midline pain, bilateral sciatica TECHNIQUE: Imaging protocol: Computed tomography of the lumbar spine without contrast. Radiation optimization: All CT scans at this facility use at least one of these dose optimization techniques: automated exposure control; mA and/or kV adjustment per patient size (includes targeted exams where dose is matched to clinical indication); or iterative reconstruction. REPORTING DATA: Count of CT and Cardiac NM exams in prior 12 months: This patient has received 4 known CTs and 0 known cardiac nuclear medicine studies in the 12 months prior to the current study. COMPARISON: CT THORACIC SPINE WO CON 12/28/2022 10:18 AM FINDINGS: Bones/joints: The bones are osteopenic. Vertebral body heights are preserved. Alignment is within normal limits. Lumbar spondylosis is noted with disc bulging, facet arthropathy ligamentous thickening. There is a broad-based disc bulge with facet arthropathy causing mild canal narrowing. At L2-L3 there is a broad-based disc bulge with ligamentous thickening and facet arthropathy causing mild canal narrowing and [id number] neural foraminal narrowing. At L3-L4 there is a broad-based disc bulge with ligamentous thickening and facet arthropathy causing [id number] canal narrowing and neural foraminal narrowing. At L4-L5 there is a broad-based disc bulge with facet arthropathy causing canal narrowing and neural foraminal narrowing. At L5-S1 there is broad-based disc bulge with facet arthropathy but no significant impingement upon the tapering thecal sac. There is mild neural foraminal narrowing. Soft tissues: Unremarkable. IMPRESSION: Osteopenia and spondylotic change in the lumbar spine.
--- NOTE | 2022-12-28 09:11 | CT_ITS ---
PROCEDURE INFORMATION: Exam: CT Abdomen And Pelvis With Contrast Exam date and time: 12/28/2022 10:24 AM Age: 57 years old Clinical indication: Abdominal pain; Additional info: Diffuse abd tenderness, primarily lower/suprapubic TECHNIQUE: Imaging protocol: Computed tomography of the abdomen and pelvis with contrast. Radiation optimization: All CT scans at this facility use at least one of these dose optimization techniques: automated exposure control; mA and/or kV adjustment per patient size (includes targeted exams where dose is matched to clinical indication); or iterative reconstruction. Contrast material: ISOVUE; Contrast volume: 75 ml; Contrast route: IV; REPORTING DATA: Count of CT and Cardiac NM exams in prior 12 months: This patient has received 4 known CTs and 0 known cardiac nuclear medicine studies in the 12 months prior to the current study. COMPARISON: CT ABDOMEN PELVIS W CON 10/27/2022 10:57 AM FINDINGS: Lungs: [place] dependent change is noted in the lungs. Liver: Small calcific granulomas are noted in the liver. Gallbladder and bile ducts: Surgical clips are noted in the gallbladder fossa compatible with a prior cholecystectomy. Pancreas: Normal. No ductal dilation. Spleen: Calcific granulomas are noted in the spleen. Adrenal glands: Normal. No mass. Kidneys and ureters: The kidneys enhance symmetrically and there is no hydronephrosis. Exophytic renal cysts are noted measuring up to 35 x 37 x 36 mm near the upper pole of the right kidney. A punctate nonobstructing calculus is noted in the lower pole of each kidney. Stomach and bowel: Sigmoid diverticulosis is noted. Moderate stool is noted in the proximal 3/4 of the colon. Appendix: No evidence of appendicitis. Intraperitoneal space: Unremarkable. No free air. No significant fluid collection. Vasculature: Unremarkable. No abdominal aortic aneurysm. Lymph nodes: Unremarkable. No enlarged lymph nodes. Urinary bladder: Unremarkable as visualized. Reproductive: Unremarkable as visualized. Bones/joints: Degenerative changes are noted in the bones. Soft tissues: There are small fat containing ventral supraumbilical body hernias.. IMPRESSION: Constipation and diverticulosis. Granulomatous disease in the liver and spleen. Renal cysts. Nonobstructing nephrolithiasis. Small fat containing ventral hernias. COMMENTS: Consistent with the [employer]'s Incidental Findings Committee white paper (J Am To Radiol 2018): Any incidental renal lesion less than 1 cm or classified as too small to characterize, or any incidental cystic renal lesion characterized as simple-appearing, is likely benign. No follow-up imaging is recommended for these lesions per consensus recommendations based on imaging criteria.
--- NOTE | 2022-12-28 09:11 | CT_ITS ---
PROCEDURE INFORMATION: Exam: CT Thoracic Spine Without Contrast Exam date and time: 12/28/2022 10:18 AM Age: 57 years old Clinical indication: Pain in thoracic spine; With radiculopathy; Bilateral; Additional info: Midline t spine pain with bilateral sciatica TECHNIQUE: Imaging protocol: Computed tomography of the thoracic spine without contrast. Radiation optimization: All CT scans at this facility use at least one of these dose optimization techniques: automated exposure control; mA and/or kV adjustment per patient size (includes targeted exams where dose is matched to clinical indication); or iterative reconstruction. REPORTING DATA: Count of CT and Cardiac NM exams in prior 12 months: This patient has received 4 known CTs and 0 known cardiac nuclear medicine studies in the 12 months prior to the current study. COMPARISON: CT ABDOMEN PELVIS W CON 10/27/2022 10:57 AM FINDINGS: Bones/joints: The bones are generally osteopenic. Vertebral body heights and alignment are within normal limits. Anterior vertebral osteophytes are noted. There is no significant thoracic canal or foraminal narrowing. Soft tissues: Unremarkable. IMPRESSION: Osteopenia and degenerative change in the thoracic spine.
--- NOTE | 2022-12-28 09:16 | HMH.EDGENADL ---
Discharge Plan Disposition Patient Disposition: Home, Self-Care Prescriptions Prescriptions: No Action promethazine-DM 6.25-15 mg/5 mL Syrup 5 ml PO Q6H PRN (Reason: Cough) Qty: 240 0RF azithromycin [Zithromax] 250 mg tablet 250 mg PO UD DOSE PK Qty: 6 0RF Rx Instructions: Take two (2) tablets today, then one (1) tablet days #2 thru #5 benzonatate [benzonatate] 100 mg capsule 100 mg PO TIDP PRN (Reason: Cough) Qty: 30 0RF methylprednisolone 4 mg Tablets,Dose Pack 4 mg PO DIRECTED Qty: 21 0RF nitrofurantoin monohyd/m-cryst [Macrobid] 100 mg capsule 100 mg PO BID 5 Days Qty: 10 0RF Rx Instructions: must administer with a meal/food metoclopramide HCl [Reglan] 10 mg tablet 10 mg PO Q6H PRN (Reason: nausea and vomiting) 7 Days Qty: 28 0RF amitriptyline 50 MG tablet 50 mg PO HS gabapentin 300 MG capsule 300 mg PO HS zolpidem 10 MG tablet 10 mg PO HS escitalopram oxalate 20 MG tablet 30 mg PO HS levothyroxine 100 MCG tablet 100 mg PO DAILY buspirone 15 MG tablet 15 mg PO BID ondansetron 4 MG tablet,disintegrating 4 mg PO Q8HP PRN (Reason: Nausea) Qty: 7 0RF gabapentin 100 MG capsule 100 mg PO DAILY sucralfate 1 GM tablet 1 gm PO BID fluticasone propionate 120 SPR/BOT bottle 1 - 2 spr NS DAILY promethazine-DM 120 ML syrup 5 ml PO Q6HP PRN (Reason: Cough) Qty: 240 0RF azithromycin 250 MG tablet 250 mg PO UD DOSE PK Qty: 6 0RF Rx Instructions: Take two (2) tablets today, then one (1) tablet days #2 thru #5 benzonatate 100 MG capsule 100 mg PO TIDP PRN (Reason: Cough) Qty: 30 0RF Paxlovid 300 mg (150 mg x 2)-100 mg tablets,dose pack See Rx Instructions PO .COMPLEX Qty: 30 0RF Rx Instructions: take TWO 150 mg tablets of nirmatrelvir with ONE 100 mg tablet of ritonavir twice daily for 5 days promethazine-DM 6.25-15 mg/5 mL Syrup 5 ml PO Q6H PRN (Reason: Cough) Qty: 240 0RF promethazine-DM 6.25-15 mg/5 mL syrup 5 ml PO Q6H PRN (Reason: cough) Qty: 150 0RF azithromycin [Zithromax Z-Rah] 250 mg tablet See Rx Instructions .ROUTE .COMPLEX 5 Days Qty: 6 0RF Rx Instructions: For 250 mg dose pack: take 500 mg today (day 1), then 250 mg for 4 days (days 2-5) dicyclomine 20 mg tablet 20 mg PO QID PRN (Reason: abdominal pain) Qty: 20 0RF Referrals Follow up/Referrals: Surinder Rocha [Primary Care Provider] - See instructions Activity Restrictions/Add. Instructions Additional Instructions/Restrictions: No emergent medical condition identified return with any urinary or bowel incontinence lower extremity paralysis numbness between your legs high fevers or other concerns. Otherwise keep your appointment for your outpatient MRI I recommend that you go ahead make an appointment with a spine surgeon in follow-up. Return with any worsening concerns. Clinical Impressions Clinical Impression: Acute bilateral low back pain with bilateral sciatica, Abdominal pain Discharge ED Provider: Qian [facility] HPI General Chief complaint: PAIN Stated complaint: back and shoulder pain numbness on back and arm Time Seen by Provider: 12/28/22 08:59 Mode of Arrival: Ambulatory Source of Information: Patient Limitations: No Limitations Description of Symptoms (Recalled from ER Triage Doc. by RN): Pt reports lower back pain, reports pain down guerita legs with numbness, reports pain down R arm with numbness, reports posterior neck pain with areas on L side of her face feeling numbs. Pt reports pain and and numbness are not new symptoms but are worse today than normal. pt reports is currently being treated for this pain and numbness and is awaiting an MRI on lower back and neck, scheduled for 01/08/23. History of Present Illness HPI narrative: 57-year-old female here with multiple complaints. 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
[2022-12-28 09:48] LABS: Microscopic, Urine URINE MICROSCOPIC (MICROSCOPIC)
[2022-12-28 09:49] LABS: Appearance,Urine CLEAR (Clear); Bilirubin,Urine Negative (Negative); Blood, Urine Negative (Negative); Color,Urine YELLOW (Yellow); Glucose,Urine (UA) Negative (Negative); Ketones,Urine Negative (Negative); Leukocyte Esterase,Urine Negative (Negative); Nitrate,Urine Negative (Negative); Protein,Urine Negative (Negative); Specific Gravity, Urine 1.015 (1.005-1.030)
[2022-12-28 09:51] LABS: Basophils % 0.6 % (0.1-2.0); Eosinophils # 0.3 K/mm3 (0.0-0.4); Eosinophils % 4.9 % (0.1-12.0); Hematocrit 38.6 % (37.0-47.0); Hemoglobin 12.3 g/dL (12.2-16.2); Lymphocytes # 1.1 K/mm3 (0.7-4.5); Lymphocytes % 18.1 % (10-50); Mean Corpuscular Hemoglobin 27.4 pg (27.0-31.2); Mean Corpuscular Volume 85.6 fl (81-99); Mean Platelet Volume 8.8 fl (7.4-10.4); Monocytes # 0.2 K/mm3 (0.1-1.0); Monocytes % 3.7 % (1.7-9.3); Neutrophils # 4.4 K/mm3 (1.8-7.8); Neutrophils % 72.6 % (37.0-80.0); Platelet Count 218 K/mm3 (142-424); Red Blood Count 4.51 M/mm3 (4.20-5.40); Red Cell Distribution Width 16.5 % (11.5-17.5); White Blood Count 6.1 K/mm3 (4.8-10.8)
[2022-12-28 09:52] LABS: Chloride 104 mmol/L (98-107)
--- NOTE | 2022-12-28 09:52 | PC.NURSE ---
pt medicated per JUL, laying down in bed, call button in reach
[2022-12-28 09:53] LABS: Potassium 3.8 mmoL/L (3.5-5.1); Sodium 141 mmol/L (136-145)
[2022-12-28 09:55] LABS: Alanine Aminotransferase 22 U/L (12-78); Alkaline Phosphatase 101 U/L (38-126); Anion Gap 10.8 mEq/L (5-15); Aspartate Amino Transferase 27 U/L (14-36); Bilirubin,Total 0.5 mg/dl (0.2-1.3); Blood Urea Nitrogen 13 mg/dl (7-17); Carbon Dioxide 30 mmol/L (22.0-30.0); Creatinine Clearance Estimated 121 mL/min (50-200); Estimated Glomerular Filt Rate 74 ml/min (>60); GFR (African American) 89 ML/MIN (>60)
[2022-12-28 09:56] LABS: Albumin Level 3.6 g/dl (3.5-5.0); Albumin/Globulin Ratio 1.2 (1.1-1.8); Calcium 8.9 mg/dl (8.4-10.2); Glucose 112 mg/dl (74-100); Total Protein,Serum 6.6 g/dl (6.3-8.2)
[2022-12-28 10:00] LABS: Bacteria,Urine Trace /lpf
--- NOTE | 2022-12-28 11:10 | PC.NURSE ---
notified ER MD Troy pt Ct results are in the computer
--- NOTE | 2022-12-28 11:35 | PC.NURSE ---
rounded on pt nothing needed at this time,call light at bs
== END 2022-12-28 11:45 | disposition home or self-care (01) ==
PROVIDERS: Emergency Provider Student in an Organized Health Care Education/Training Program; PCP Family Medicine
DX: M54.42 Lumbago with sciatica, left side (principal); M54.41 Lumbago with sciatica, right side; G89.29 Other chronic pain; Z85.831 Personal history of malignant neoplasm of soft tissue; M54.12 Radiculopathy, cervical region; R10.9 Unspecified abdominal pain
CPT/HCPCS: 72128; 72131; 74177; 80053; 81001; 85025; 96361; 96374; 96375; 99285; J2405; Q9967

== ENCOUNTER 2023-02-10 14:59 | Emergency (ER) | payer BC, SELFPAY ==
[2023-02-10 15:00] VITALS: BP 125/87; PULSE 72; RESP 17; TEMP 36.7; O2SAT 97; BMI 34.4
[2023-02-10 15:31] VITALS: BP 122/82; PULSE 85; O2SAT 97
--- NOTE | 2023-02-10 15:45 | CT_ITS ---
PROCEDURE INFORMATION: Exam: CT Neck With Contrast Exam date and time: 02/10/2023 4:15 PM Age: 57 years old Clinical indication: Dysphagia / difficulty swallowing; Additional info: Difficulty swallowing, concern for thyromegaly TECHNIQUE: Imaging protocol: Computed tomography of the neck with contrast. Radiation optimization: All CT scans at this facility use at least one of these dose optimization techniques: automated exposure control; mA and/or kV adjustment per patient size (includes targeted exams where dose is matched to clinical indication); or iterative reconstruction. Contrast material: ISOVUE; Contrast volume: 75 ml; Contrast route: IV; REPORTING DATA: Count of CT and Cardiac NM exams in prior 12 months: This patient has received 5 known CTs and 0 known cardiac nuclear medicine studies in the 12 months prior to the current study. COMPARISON: CT SOFT TISSUE NECK W CON 01/19/2022 9:44 PM FINDINGS: Pharynx: Unremarkable. No significant tonsillar enlargement. Larynx: Unremarkable. Epiglottis is normal. Prevertebral and retropharyngeal spaces: Unremarkable. Salivary glands: Normal. Glands are normal in size. Thyroid: Normal. No enlarged or calcified nodules. Lymph nodes: Calcified mediastinal and hilar lymph nodes suggest prior granulomatous exposure. Trachea: Visualized trachea is unremarkable. Lungs: Unremarkable as visualized. Esophagus: There is mild circumferential thickening of the proximal esophagus which can be seen in the context of esophagitis. Bones/joints: Unremarkable. No acute fracture. Soft tissues: Unremarkable. No significant soft tissue swelling. IMPRESSION: Mild circumferential thickening of the proximal esophagus which can be seen in the context of esophagitis.
--- NOTE | 2023-02-10 16:14 | HMH.EDGENADL ---
Discharge Plan Disposition Patient Disposition: Home, Self-Care Prescriptions Prescriptions: New metoclopramide HCl [Reglan] 10 mg tablet 10 mg PO Q6H PRN (Reason: nausea and vomiting) Qty: 20 0RF No Action metoclopramide HCl [Reglan] 10 mg tablet 10 mg PO Q6H PRN (Reason: nausea and vomiting) 7 Days Qty: 28 0RF amitriptyline 50 MG tablet 50 mg PO HS gabapentin 300 MG capsule 300 mg PO HS zolpidem 10 MG tablet 10 mg PO HS escitalopram oxalate 20 MG tablet 30 mg PO HS levothyroxine 100 MCG tablet 100 mg PO DAILY buspirone 15 MG tablet 15 mg PO BID gabapentin 100 MG capsule 100 mg PO DAILY sucralfate 1 GM tablet 1 gm PO BID fluticasone propionate 120 SPR/BOT bottle 1 - 2 spr NS DAILY dicyclomine 20 mg tablet 20 mg PO QID PRN (Reason: abdominal pain) Qty: 20 0RF Referrals Follow up/Referrals: Surinder Rocha [Primary Care Provider] - See instructions Activity Restrictions/Add. Instructions Additional Instructions/Restrictions: Call your family doctor to establish care for this visit to the emergency department and schedule follow-up within 48 hours to ensure improvement. If you have any worsening of your condition or any other concerning signs or symptoms, return to the emergency department or your primary care doctor for further evaluation. Thyroid studies today with TSH 8.5 (upper limit of normal 4.7) and T4 was 8.8, within normal limits. Talk to your family doctor about having your medications adjusted and levels checked within 4 to 6 weeks. Reglan also sent to your pharmacy. Clinical Impressions Clinical Impression: Chronic sore throat Discharge ED Provider: Xavier Blackwell [facility] Adult HPI General Chief complaint: PAIN Stated complaint: sore throat Time Seen by Provider: 02/10/23 15:16 Mode of Arrival: Family Vehicle Source of Information: Patient Limitations: No Limitations Description of Symptoms (Recalled from ER Triage Doc. by RN): Pt c/o sore throat, elevated TSH (9.81), fatigue, difficulty swallowing, and Raspy voice for about 3 wk. States she has a known hiatal hernia that she was supposed to haved streched, however d/t food still in her esophagus, she was dx with gastroporesis and referred to GI specialist in [place]. They prescribed her Linzess. Pt is concerned about her worsening fatigue and trouble swallowing worse at night when she is trying to sleep. States she reached out to her PCP regarding TSH but they have not responded to her. History of Present Illness HPI narrative: 57-year-old female history of hypothyroidism, GERD complicated by esophageal strictures requiring balloon dilation, gastroparesis, fibromyalgia presenting with voice changes and difficulty swallowing. Patient states that this has been going on for weeks. Voice has been raspy. She was supposed to get balloon dilated about 3 weeks prior to arrival, however due to gastroparesis, she still had food in her stomach and GI aborted on the day of. Supposed to have balloon dilation of her lower esophagus in about a month, March 12. Patient states that she was seen by her family doctor and told my thyroid level was too high, although patient denies missing any medication doses. Primary care doctor was concerned that thyroid is because of patient's symptoms, so sent her to the emergency department. Patient has no trismus, pain with range of motion of neck, difficulty with range of motion of neck, difficulty breathing, but has had intermittent trouble swallowing large bites of food. Related Data Home Medications Medication Instructions Recorded Confirmed amitriptyline 50 mg tablet 50 mg PO HS MOOD 12/04/17 06/22/20 escitalopram oxalate 20 mg tablet 30 mg PO HS Depression 12/04/17 06/22/20 gabapentin 300 mg capsule 300 mg PO HS fibromylagia 12/04/17 06/22/20 zolpidem 10 mg tablet 10 mg PO HS Insomnia 12/04/17 06/22/20 buspirone 15 mg tablet 15 mg PO BID Anxi
[2023-02-10 16:15] LABS: Basophils % 0.3 % (0.1-2.0); Eosinophils # 0.2 K/mm3 (0.0-0.4); Eosinophils % 3.9 % (0.1-12.0); Hemoglobin 12.7 g/dL (12.2-16.2); Lymphocytes # 1.3 K/mm3 (0.7-4.5); Lymphocytes % 23.1 % (10-50); Mean Corpuscular HGB Conc 31.6 g/dL (31.8-35.4); Mean Corpuscular Hemoglobin 27.3 pg (27.0-31.2); Mean Corpuscular Volume 86.4 fl (81-99); Mean Platelet Volume 8.8 fl (7.4-10.4); Monocytes # 0.2 K/mm3 (0.1-1.0); Monocytes % 3.3 % (1.7-9.3); Neutrophils % 69.5 % (37.0-80.0); Platelet Count 225 K/mm3 (142-424); Red Blood Count 4.63 M/mm3 (4.20-5.40); Red Cell Distribution Width 15.8 % (11.5-17.5); White Blood Count 5.8 K/mm3 (4.8-10.8)
[2023-02-10 16:32] LABS: Alanine Aminotransferase 22 U/L (12-78); Albumin/Globulin Ratio 1.3 (1.1-1.8); Alkaline Phosphatase 86 U/L (38-126); Anion Gap 7.3 mEq/L (5-15); Aspartate Amino Transferase 32 U/L (14-36); Bilirubin,Total 0.3 mg/dl (0.2-1.3); Blood Urea Nitrogen 12 mg/dl (7-17); Calcium 8.9 mg/dl (8.4-10.2); Carbon Dioxide 31 mmol/L (22.0-30.0); Chloride 106 mmol/L (98-107); Creatinine Clearance Estimated 121 mL/min (50-200); Estimated Glomerular Filt Rate 74 ml/min (>60); GFR (African American) 89 ML/MIN (>60); Globulin 3.1 g/dL (1.3-3.2); Glucose 100 mg/dl (74-100); Potassium 4.3 mmoL/L (3.5-5.1); Sodium 140 mmol/L (136-145); Total Protein,Serum 7.1 g/dl (6.3-8.2)
[2023-02-10 16:49] LABS: T4 (Thyroxine) 8.8 ug/dl (5.53-11.0)
[2023-02-10 17:03] LABS: Thyroid Stimulating Hormone 8.55 uIU/mL (0.465-4.68)
[2023-02-10 19:18] VITALS: BP 112/85; PULSE 66; RESP 16; TEMP 36.8; O2SAT 100
== END 2023-02-10 19:24 | disposition home or self-care (01) ==
PROVIDERS: Emergency Provider Emergency Medicine; PCP Family Medicine
DX: J31.2 Chronic pharyngitis (principal); R13.10 Dysphagia, unspecified; R49.9 Unspecified voice and resonance disorder; E03.9 Hypothyroidism, unspecified; K21.00 Gastro-esophageal reflux disease with esophagitis, without bleeding; K31.84 Gastroparesis
CPT/HCPCS: 70491; 80053; 84436; 84443; 85025; 96374; 99284; Q9967

== ENCOUNTER → 2023-04-23 13:51 | Outpatient (CLI) | payer BC, SELFPAY ==
--- NOTE | 2023-04-23 13:52 | US_ITS ---
FINAL REPORT TECHNIQUE: Real-time grayscale and color ultrasound of the thyroid was performed. CLINICAL HISTORY: hypothyroidism COMPARISON: None FINDINGS: The thyroid gland is small and measures 2.5 cm on the right and 2.3 cm on the left. The isthmus measures 0.2 cm. Nodules: Right: Up to 1.1 cm hypoechoic solid TR 4, more evident in the lower pole. Left: Enlarged lymph node up to 2 cm. Fatty hilum not clearly seen. IMPRESSION: TR 4 right lobe thyroid nodule. 1 year follow-up recommended per TI-RADS criteria. Enlarged left cervical lymph node. Recommend infused neck CT to better evaluate. Reviewed, Interpreted and Dictated by Chuy Wright MD Transcribed by Elizabeth Cui Authenticated and [facility]
[2023-04-23 15:56] LABS: Thyroid Stimulating Hormone 3.52 uIU/mL (0.465-4.68)
== END ==
PROVIDERS: PCP Family Medicine; Visit Provider Otolaryngology
DX: E03.9 Hypothyroidism, unspecified (principal)
CPT/HCPCS: 36415; 76536; 84439; 84443

== ENCOUNTER 2024-04-04 08:02 | Emergency (ER) | payer BC, SELFPAY ==
[2024-04-04 08:22] VITALS: BP 120/72; PULSE 79; RESP 20; TEMP 36.7; O2SAT 98; BMI 39.1
[2024-04-04 08:30] LABS: UTC Strep Screen (Rapid) Negative (Negative)
--- NOTE | 2024-04-04 08:33 | EXP.UTC ---
Discharge Plan Disposition Patient Disposition: Home, Self-Care Condition: Good Prescriptions Prescriptions: New promethazine-DM 6.25-15 mg/5 mL Syrup 5 ml PO Q6H PRN (Reason: Cough) Qty: 240 0RF benzonatate 100 mg capsule 100 mg PO TIDP PRN (Reason: Cough) Qty: 30 0RF methylprednisolone 4 mg Tablets,Dose Pack 4 mg PO DIRECTED 6 Days Qty: 21 0RF Rx Instructions: Take 1 pack as directed for 6 days amoxicillin-pot clavulanate 875-125 mg Tablet 1 tab PO Q12H Qty: 20 0RF No Action lidocaine 5 % adhesive patch,medicated 1 patch transdermal PRN Patient Comments: USE 1 PATCH EXTERNALLY EVERY 12 HOURS WEAR FOR 12 HOURS AND THEN OFF FOR 12 HOURS ondansetron 8 mg tablet,disintegrating 8 mg PO PRN Patient Comments: DISSOLVE 1 TABLET IN MOUTH EVERY 8 HOURS NEEDED FOR NAUSEA FOR VOMITING buspirone 30 mg tablet 30 mg PO Patient Comments: TAKE 1 TABLET BY MOUTH TWICE DAILY lubiprostone 24 mcg capsule PO Patient Comments: TAKE 1 CAPSULE BY MOUTH TWICE DAILY WITH MEALS albuterol sulfate 90 mcg/actuation HFA aerosol inhaler inhalation Patient Comments: INHALE 1 PUFF BY MOUTH EVERY 4 HOURS NEEDED FOR WHEEZING famotidine 40 mg tablet 40 mg PO Patient Comments: TAKE 1 TABLET BY MOUTH EVERY DAY AT BEDTIME etodolac 400 mg tablet 400 mg PO Patient Comments: TAKE 1 TABLET BY MOUTH TWICE DAILY amitriptyline 50 MG tablet 50 mg PO HS gabapentin 300 MG capsule 300 mg PO HS zolpidem 10 MG tablet 10 mg PO HS escitalopram oxalate 20 MG tablet 30 mg PO HS levothyroxine 100 MCG tablet 100 mg PO DAILY sucralfate 1 GM tablet 1 g PO BID fluticasone propionate 120 SPR/BOT bottle 1 - 2 spr intranasal DAILY zolpidem 10 mg tablet 10 mg PO DIRECTED Patient Comments: TAKE 1 TABLET BY MOUTH NIGHTLY NEEDED FOR SLEEP Linzess 290 mcg capsule 290 mcg PO DAILY Patient Comments: TAKE 1 CAPSULE BY MOUTH ONCE DAILY Referrals Follow up/Referrals: Surinder Rocha [Primary Care Provider] - See instructions Activity Restrictions/Add. Instructions Additional Instructions/Restrictions: Drink plenty of fluids. Take tylenol or ibuprofen for pain or fever. Take the medications as directed. Follow up with your regular doctor. GO TO THE ER FOR ANY WORSENING SYMPTOMS Don't start the oral steroids (medrol dose pack) until tomorrow since you had the shot here The cough medication (promethazine dm) will make you drowsy, so don't drive or operate heavy machinery after taking it. Clinical Impressions Clinical Impression: Bronchitis Sinusitis Qualifiers: Sinusitis location: unspecified location Chronicity: unspecified Qualified Code(s): J32.9 - Chronic sinusitis, unspecified Instructions Patient Instructions: DI for Acute Bronchitis, Ceftriaxone Injection, Dexamethasone Injection Print Language Print Language: Finnish Discharge ED Provider: Shar Olivares [facility] HPI General Stated complaint: sore throat ear pain chest congestion Mode of Arrival: Ambulatory Source of Information: Patient Time Seen by Provider: 04/04/24 08:33 Description of Symptoms (Recalled from Triage Doc. by RN): CHEST CONGESTION, [place], SORE THROAT, EAR PAIN HEENT Symptoms (Recalled from RN notes): Yes Resp Symptoms (Recalled from RN notes): Yes Skin Symptoms (Recalled from RN notes): No MS Symptoms (Recalled from RN notes): No Functional Status (Recalled from RN notes): WNL Related Data Home Medications ?Medication ?Instructions ?Recorded ?Confirmed amitriptyline 50 mg tablet 50 mg PO HS MOOD 12/04/17 04/04/24 escitalopram oxalate 20 mg tablet 30 mg PO HS Depression 12/04/17 04/04/24 gabapentin 300 mg capsule 300 mg PO HS fibromylagia 12/04/17 05/28/23 zolpidem 10 mg tablet 10 mg PO HS Insomnia 12/04/17 05/28/23 levothyroxine 100 mcg tablet 100 mg PO DAILY THYROID 12/05/17 04/04/24 fluticasone propionate 50 1 - 2 spr intranasal DAILY Allergy 06/22/20 05/28/23 mcg/actuation nasal symptoms spray,suspension sucralfate 1 gram tablet 1 g PO BID GERD 06/22/20 05/28/23 lidocaine 5 % topical patch 1 patch transdermal PRN 04/16/23 05/28/23 ondansetron 8 mg disintegrating 8 mg PO PRN 04/16/23 05/28/23 tablet albuterol sulfate 90 mcg/actuation inhalation 05/06/23 05/28/23 aerosol inhaler buspirone 30 mg tablet 30 mg PO 05/06/23 05/28/23 etodolac 400 mg tablet 400 mg PO 05/06/23 05/28/23 famotidine 40 mg tablet 40 mg PO 05/06/23 05/28/23 lubiprostone 24 mcg capsule mcg PO 05/06/23 05/28/23 linaclotide 290 mcg capsule 290 mcg PO DAILY 04/04/24 04/04/24 (Linzess) zolpidem 10 mg tablet 10 mg PO DIRECTED 04/04/24 04/04/24 Previous Rx's ?Medication ?Instructions ?Recorded amoxicillin 875 mg-potassium 1 tab PO Q12H #20 tabs 04/04/24 clavulanate 125 mg tablet benzonatate 100 mg capsule 100 mg PO TIDP PRN Cough #30 caps 04/04/24 methylprednisolone 4 mg tablets in 4 mg PO DIRECTED 6 days #21 tabs 04/04/24 a dose pack promethazine-DM 6.25 mg-15 mg/5 mL 5 ml PO Q6H PRN Cough #240 mL 04/04/24 oral syrup Allergies Allergy/AdvReac Type Severity Reaction Status Date / Time duloxetine (From Cymbalta) Allergy Mild Verified 05/28/23 14:57 latex Allergy Mild Verified 05/28/23 14:57 pregabalin (From Lyrica) Allergy Verified 05/28/23 14:57 Worker's Comp Is this a Worker's Comp case?: No [facility] Disclaimer: The information contained in this section may have been updated after the patient was seen, as this information can be updated by other users. Medical History Cervical lymphadenopathy Dysphagia Hoarseness Hypothyroidism Thyroid Nodule Social History Smoking Status: Never smoker second hand exposure: No alcohol intake: never current occupational status: other household members: family housing: house current occupational exposures/hazards: No caffeine: Yes ROS Obtained: Yes All systems reviewed & no additional complaints except as documented Constitutional Constitutional: Reports poor appetite Eyes Eyes: Reports system reviewed and no additional complaints, except as documented ENT Ears, Nose, Mouth, and Throat: Reports as per HPI Cardiovascular Cardiovascular: Reports system reviewed and no additional complaints, except as documented and Denies chest pain Respiratory Respiratory: Denies shortness of breath, Reports chest congestion, Reports cough, Denies stridor and Denies wheezing Gastrointestinal Gastrointestingal: Reports system reviewed and no additional complaints, except as documented; Denies abdominal pain, diarrhea or vomiting Musculoskeletal Musculoskeletal: Reports system reviewed and no additional complaints, except as documented and Denies arthralgias Integumentary/Breasts Skin/Breast: Reports system reviewed and no additional complaints, except as documented and Denies rash Neurologic Neurologic: Denies paresthesias Allergic/Immunologic Allergic/Immunologic: Denies wheezing Physical Exam General General appearance: alert and in no apparent distress Eye Eye exam: Present normal appearance, PERRL and EOMI ENT ENT exam: Present mucous membranes moist and normal external ear exam Expanded ENT Exam External ear exam: Present normal external inspection TM/Canal exam: Bilateral TM: erythema and bulging Nose exam: Absent sinus tenderness Nasal speculum exam: Bilateral: normal Mouth exam: Present normal external inspection; Absent drooling Teeth exam: Present normal inspection Throat exam: Present tonsillar erythema and tonsillomegaly Neck Neck exam: Present normal inspection, full ROM and trachea midline; Absent tenderness, lymphadenopathy or thyromegaly Chest Chest inspection: Present normal inspection and symmetric chest wall rise; Absent tenderness or rash Respiratory Respiratory exam: Present normal lung sounds bilaterally; Absent respiratory distress, wheezes, stridor or accessory muscle use Cardiovascular Cardiovascular exam: Present regular rate, normal rhythm and normal heart sounds Abdominal Exam Abdominal exam: Present soft; Absent distention, tenderness, guarding, rebound or rigidity Extremities Exam Extremities exam: Present normal inspection, full ROM and normal capillary refill; Absent tenderness or calf tenderness Back Exam Back exam: Present normal inspection and full ROM; Absent tenderness Neurological Exam Neurological exam: Present alert and oriented X3 Psychiatric Psychiatric exam: Present normal affect and normal mood Skin Skin exam: Present warm, dry, intact and normal color Lymphatic Lymphatic Findings: no adenopathy Medical Decision Making Medical Records Medical records reviewed: No I reviewed the patient's medical records. Screening: Per USPSTF and CDC recommendations, given the prevalence of disease in our region, it is our hospital?s policy to screen for HIV and viral Hepatitis for all patients aged 18 and over and those with ongoing risk factors. Reyes Inquiry Pt receiving controlled substance: No Vital Signs: 04/04/24 08:22 Temperature 98.1 F Temperature Source Oral Pulse Rate [Left Radial] 79 Respiratory Rate 20 Blood Pressure [Left Arm] 120/72 Blood Pressure Mean [Left Arm] 88 02 Sat by Pulse Oximetry 98 Lab Data Lab Results 04/04/24 08:11: Strep Scn Rapid Clinic Negative Orders (Tests/Meds): ORDERS Category Date Time Status Strep Screen Confirmation Stat Micro 04/04/24 08:11 Received
[2024-04-04] MEDS: DEXAMETHASONE 4MG/ML 1ML VIAL 8 MG IM (08:46)
[2024-04-04] MEDS: LIDOCAINE 1% 5ML PF VIAL IM (08:46)
[2024-04-04] MEDS: cefTRIAXone 1GM VIAL 1 GM IM (08:46)
[2024-04-04 09:08] VITALS: BP 120/72; PULSE 79; RESP 20; TEMP 36.7
== END 2024-04-04 09:09 | disposition home or self-care (01) ==
PROVIDERS: Emergency Provider Nurse Practitioner Family; PCP Family Medicine
DX: J32.9 Chronic sinusitis, unspecified (principal); J40 Bronchitis, not specified as acute or chronic; R51.9 Headache, unspecified; R09.89 Other specified symptoms and signs involving the circulatory and respiratory systems; J02.9 Acute pharyngitis, unspecified; R63.8 Other symptoms and signs concerning food and fluid intake
CPT/HCPCS: 87880; 96372; 99212; G0381; J0696; J1100

== ENCOUNTER 2024-04-21 14:33 | Outpatient (CLI) | payer BC, SELFPAY ==
--- NOTE | 2024-04-21 14:38 | XR_ITS ---
FINAL REPORT CLINICAL HISTORY: cough, congestion, SOA COMPARISON: 07/23/2021 FINDINGS: No acute pulmonary density is evident. There is no evidence of effusion or other pleural disease. The mediastinum has a normal appearance. The cardiac silhouette is unremarkable. IMPRESSION: Unremarkable chest exam. Reviewed, Interpreted and Dictated by Manny Horner MD Transcribed by Ketty Villanueva Authenticated and . [facility]
== END 2024-04-21 23:59 | disposition home or self-care (01) ==
LOC: RAD 14:34
PROVIDERS: PCP Family Medicine; Visit Provider Family Medicine
DX: R05.9 Cough, unspecified (principal); J06.9 Acute upper respiratory infection, unspecified
CPT/HCPCS: 71046

== ENCOUNTER 2024-06-30 17:46 | Emergency (ER) | payer BC, SELFPAY ==
[2024-06-30 18:03] VITALS: BP 137/90; PULSE 90; RESP 16; TEMP 37.2; O2SAT 100; BMI 32.5
--- NOTE | 2024-06-30 18:17 | ED_ITS ---
<Statement entered by Odell Moeller MD - 06/30/24 21:43> I was consulted by the JUANCARLOS, and we discussed the complexity of the problems being addressed. I approved the treatment and management plan for this patient's care in the emergency department, thus performing a substantive portion of the medical decision making. Odell Moeller MD Discharge Plan Disposition Patient Disposition: Home, Self-Care Condition: Good Chief Complaint: Wound/Laceration Prescriptions Prescriptions: No Action lidocaine 5 % adhesive patch,medicated 1 patch transdermal PRN Patient Comments: USE 1 PATCH EXTERNALLY EVERY 12 HOURS WEAR FOR 12 HOURS AND THEN OFF FOR 12 HOURS ondansetron 8 mg tablet,disintegrating 8 mg PO PRN Patient Comments: DISSOLVE 1 TABLET IN MOUTH EVERY 8 HOURS NEEDED FOR NAUSEA FOR VOMITING buspirone 30 mg tablet 30 mg PO Patient Comments: TAKE 1 TABLET BY MOUTH TWICE DAILY lubiprostone 24 mcg capsule PO Patient Comments: TAKE 1 CAPSULE BY MOUTH TWICE DAILY WITH MEALS albuterol sulfate 90 mcg/actuation HFA aerosol inhaler inhalation Patient Comments: INHALE 1 PUFF BY MOUTH EVERY 4 HOURS NEEDED FOR WHEEZING famotidine 40 mg tablet 40 mg PO Patient Comments: TAKE 1 TABLET BY MOUTH EVERY DAY AT BEDTIME etodolac 400 mg tablet 400 mg PO Patient Comments: TAKE 1 TABLET BY MOUTH TWICE DAILY cetirizine [All Day Allergy (cetirizine)] 10 mg tablet 10 mg PO DAILY PRN (Reason: allergy symptoms) Qty: 30 0RF azelastine 137 mcg (0.1 %) spray,non-aerosol 137 mcg intranasal BID Qty: 8.22 2RF Rx Instructions: administer into each nostril levofloxacin 500 mg tablet 500 mg PO DAILY 10 Days Qty: 10 0RF amitriptyline 50 MG tablet 50 mg PO HS gabapentin 300 MG capsule 300 mg PO HS zolpidem 10 MG tablet 10 mg PO HS escitalopram oxalate 20 MG tablet 30 mg PO HS levothyroxine 100 MCG tablet 100 mg PO DAILY sucralfate 1 GM tablet 1 g PO BID fluticasone propionate 120 SPR/BOT bottle 1 - 2 spr intranasal DAILY zolpidem 10 mg tablet 10 mg PO DIRECTED Patient Comments: TAKE 1 TABLET BY MOUTH NIGHTLY NEEDED FOR SLEEP Linzess 290 mcg capsule 290 mcg PO DAILY Patient Comments: TAKE 1 CAPSULE BY MOUTH ONCE DAILY promethazine-DM 6.25-15 mg/5 mL Syrup 5 ml PO Q6H PRN (Reason: Cough) Qty: 240 0RF Referrals Follow up/Referrals: Surinder Rocha [Primary Care Provider] - See instructions Activity Restrictions/Add. Instructions Additional Instructions/Restrictions: Follow-up with your primary care provider and vascular team, return to the emergency department any worsening signs or symptoms, utilize gauze and other wound dressings, return to the emergency department with any worsening bleeding or acute symptoms. Clinical Impressions Clinical Impression: Cut of lower extremity Instructions Patient Instructions: DI for Laceration Repair Print Language Print Language: Estonian Discharge ED Provider: Odell Moeller General Adult HPI General Chief complaint: Wound/Laceration Stated complaint: LT calf vein bleeding Time Seen by Provider: 06/30/24 18:09 Mode of Arrival: Ambulatory Source of Information: Patient Limitations: No Limitations Description of Symptoms (Recalled from ER Triage Doc. by RN): Cut varicosity while shaving legs History of Present Illness HPI narrative: 59-year-old female presents to the emergency department with a left lower extremity leg wound, patient states that she was shaving , when she cut her leg and had profuse bleeding and could not get it to stop at home thus prompted her emergency department visit. Patient [place] any fever chills chest pain shortness of breath nausea vomiting constipation diarrhea no abdominal pain, no upper or lower extremity weakness, does have some numbness and tingling intermittently in her bilateral lower extremities has polyneuropathy. Denies any history of substance use, other past medical history consistent with obesity, varicose veins team for this, GERD, anxiety/depression, hypothyroidism, IBS. Triage vitals unremarkable. Onset (ago): hour(s) Related Data Home Medications ?Medication ?Instructions ?Recorded ?Confirmed amitriptyline 50 mg tablet 50 mg PO HS MOOD 12/04/17 04/21/24 escitalopram oxalate 20 mg tablet 30 mg PO HS Depression 12/04/17 04/21/24 gabapentin 300 mg capsule 300 mg PO HS fibromylagia 12/04/17 04/21/24 zolpidem 10 mg tablet 10 mg PO HS Insomnia 12/04/17 04/21/24 levothyroxine 100 mcg tablet 100 mg PO DAILY THYROID 12/05/17 04/21/24 fluticasone propionate 50 1 - 2 spr intranasal DAILY Allergy 06/22/20 04/21/24 mcg/actuation nasal symptoms spray,suspension sucralfate 1 gram tablet 1 g PO BID GERD 06/22/20 04/21/24 lidocaine 5 % topical patch 1 patch transdermal PRN 04/16/23 04/21/24 ondansetron 8 mg disintegrating 8 mg PO PRN 04/16/23 04/21/24 tablet albuterol sulfate 90 mcg/actuation inhalation 05/06/23 04/21/24 aerosol inhaler buspirone 30 mg tablet 30 mg PO 05/06/23 04/21/24 etodolac 400 mg tablet 400 mg PO 05/06/23 04/21/24 famotidine 40 mg tablet 40 mg PO 05/06/23 04/21/24 lubiprostone 24 mcg capsule mcg PO 05/06/23 04/21/24 linaclotide 290 mcg capsule 290 mcg PO DAILY 04/04/24 04/21/24 (Linzess) zolpidem 10 mg tablet 10 mg PO DIRECTED 04/04/24 04/21/24 Previous Rx's ?Medication ?Instructions ?Recorded promethazine-DM 6.25 mg-15 mg/5 mL 5 ml PO Q6H PRN Cough #240 mL 04/04/24 oral syrup azelastine 137 mcg (0.1 %) nasal 137 mcg (0.137 mL) intranasal BID 04/21/24 spray #8.22 mL cetirizine 10 mg tablet (All Day 10 mg PO DAILY PRN allergy 04/21/24 Allergy (cetirizine)) symptoms #30 tabs levofloxacin 500 mg tablet 500 mg PO DAILY 10 days #10 tabs 04/22/24 Allergies Allergy/AdvReac Type Severity Reaction Status Date / Time duloxetine (From Cymbalta) Allergy Mild Verified 04/21/24 13:16 latex Allergy Mild Verified 04/21/24 13:16 pregabalin (From Lyrica) Allergy Verified 04/21/24 13:16 [facility] Disclaimer: The information contained in this section may have been updated after the patient was seen, as this information can be updated by other users. Medical History Thyroid Nodule Cervical lymphadenopathy Hoarseness Hypothyroidism Dysphagia Social History Smoking Status: Never smoker second hand exposure: No alcohol intake: never current occupational status: other Travel in the last 8 weeks: None household members: family housing: house current occupational exposures/hazards: No caffeine: Yes Have you lived/traveled outside [place] in past 30 days?: No Contact w/someone who lives/traveled outside [place] past 30 days?: No Exposure to someone with infectious disease in past 14 days?: No Do you have a fever (greater than 100.4 F or 38 C)?: No Have you tested positive for COVID-19: No Exposed to someone with COVID-19 in past 14 days?: No Do you have a sore throat?: No Do you have a cough?: No Do you have any weakness?: No Do you have any diarrhea?: No Are you experiencing any unusual bleeding?: No Do you have any muscle aches/pain?: No Do you have any abdominal pain?: No Are you experiencing loss of taste or smell?: No Other Medical History Have you received the Flu Vaccine for this season: Yes Have you received the Pneumonia Vaccine: No ROS Obtained: Yes All systems reviewed & no additional complaints except as documented Physical Exam General General appearance: alert and in no apparent distress Head Head exam: atraumatic and normocephalic Eye Eye exam: Present PERRL and EOMI ENT ENT exam: Present mucous membranes moist Neck Neck exam: Present normal inspection Chest Chest inspection: Present normal inspection and symmetric chest wall rise Respiratory Respiratory exam: Present normal lung sounds bilaterally; Absent respiratory distress Cardiovascular Cardiovascular exam: Present regular rate and normal rhythm Abdominal Exam Abdominal exam: Present soft; Absent tenderness Extremities Exam Extremities exam: Present normal inspection Neurological Exam Neurological exam: Present alert and oriented X3 Psychiatric Psychiatric exam: Present normal affect Skin Skin exam: Present warm, dry and other (Is a small laceration/cut on the patient's gastrocnemius muscle on the medial aspect of the left leg, there is no bleeding, no erythema, no evidence of wound dehiscence or drainage.) Medical Decision Making Medical Records Medical records reviewed: Yes I reviewed the patient's medical records. Screening: Per USPSTF and CDC recommendations, given the prevalence of disease in our region, it is our hospital?s policy to screen for HIV and viral Hepatitis for all patients aged 18 and over and those with ongoing risk factors. Reyes Inquiry Pt receiving controlled substance: No Reyes was queried for this patient: No Vital Signs: 06/30/24 18:03 Temperature 99.0 F Temperature Source Oral Pulse Rate [Left Radial] 90 Respiratory Rate 16 Blood Pressure [Right Arm] 137/90 Blood Pressure Mean [Right Arm] 105 Blood Pressure Source [Right Arm] Automatic Cuff Blood Pressure Position [Right Arm] Sitting 02 Sat by Pulse Oximetry 100 Oxygen Delivery Method Room Air Orders (Tests/Meds): ORDERS Category Date Time Status HIV Combo Routine Lab 06/30/24 18:08 Ordered Hepatitis C Ab Qual. W/ RFX Routine Lab 06/30/24 18:08 Ordered Medical Decision Narrative: 59-year-old female presents to the emergency department with laceration/left lower extremity injury, differential diagnose include but not limited to hines perficial abrasion, laceration. I discussed patient case with attending physician Nursing staff was able to wrap the leg, I unwrapped the leg and reexamined the wound, no evidence of wound dehiscence or drainage, rewrapped the leg, hemostasis achieved, patient has no other acute complaints no other signs or symptoms, small laceration achieve hemostasis with gauze and pressure dressing, no sutures or other closures needed at this time. Patient is cleared to be discharged home to self-care, patient has not any anticoagulant therapy, recommend follow-up with vascular team and PCP as directed. Turn to emerged part any worsening signs or symptoms. Patient voiced understand agree with current treatment plan/discharge plan. Critical Care Critical Care Time Critical Care Time: No
[2024-06-30 18:26] VITALS: BP 137/90; PULSE 84; RESP 16; TEMP 36.7; O2SAT 96
== END 2024-06-30 18:27 | disposition home or self-care (01) ==
PROVIDERS: Emergency Provider Emergency Medicine; PCP Family Medicine
DX: S81.812A Laceration without foreign body, left lower leg, initial encounter (principal); W26.8XXA Contact with other sharp object(s), not elsewhere classified, initial encounter
CPT/HCPCS: 99283

== ENCOUNTER 2025-01-10 14:05 | Emergency (ER) | payer SELFPAY ==
--- OUTSIDE RECORDS SUMMARY | 2024-11-15 09:45 | XMS_ITS | Encounter Summary ---
[facility] Address [address] [place] [address] Care Team Providers Care Director Of Restaurant Operations Name Role Phone Surinder Rocha MD Primary Care Provider [phone] Reason for Referral * Consultation (Routine) - Authorized Specialty Diagnoses / Procedures Referred By Contac t Referred To Contact Otolaryngology Diagnoses Voice hoarseness Procedures PA OFFICE/OUTPATIENT NEW MODERATE MDM 45 MINUTES Surinder Rocha MD [address] [place] [address] Phone: tel: fax: Meghna Joy MD [address] [place] [address] [place] [address] Phone: tel: fax: Referral ID Status Reason Start Date Expiration Date Visits Requested Visits Authorized [id number] Authorized Specialty Services Required 11/15/2024 02/14/2026 1 1 * Diagnostic Imaging (Routine) - Closed Specialty Diagnoses / Procedures Referred By Contac t Referred To Contact Radiology Diagnoses Screening mammogram for breast cancer Procedures Mammo Diagnostic Digital Tomosynthesis Bilateral With CAD Surinder Rocha MD [address] [place] [address] Phone: tel: fax: [facility] [address] [place] [address] Phone: tel: Referral ID Status Reason Start Date Expiration Date Visits Re quested Visits Authorized [id number] Closed 11/15/2024 02/14/2026 1 1 Reason for Visit * Reason Comments Sore Throat X 1 wk blisters in t he back of throat Encounter Details Date Type Department Care Team (Late st Contact Info) Description 11/15/2024 9:45 AM EDT Office Visit [facility] [address] [place] [address] Surinder Rocha MD [address] [place] [address] Voice hoarseness (Primary Dx); Adjustment disorder with anxious mood; Generalized anxiety disorder; Idiopathic peripheral neuropathy; Bilateral leg pain; Fibromyalgia; Gastroesophageal reflux disease, unspecified whether esophagitis present; Moderate episode of recurrent major depressive disorder; Hyperglycemia; Screening mammogram for breast cancer; Weight gain; Mixed incontinence urge and stress Social History Tobacco Use Types Packs/Day Years Used Date Smoking Tobacco: Never Smokeless Tobacco: Never Alcohol Use Standard Drinks/Week Comments No 0 (1 standard drink = 0.6 oz pur e alcohol) AUDIT-C Answer Date Recorded Q1: How often do you have a drink containing alcohol? Never 08/17/2023 Q2: How many drinks containi ng alcohol do you have on a typical day when you are drinking? Patient does not drink Q3: How often do you have si x or more drinks on one occasion? Never 08/17/2023 PHQ-2 Answer Date Recorded Retired PHQ-9: Brief Depression Severity Measure Score 1 07/31/2022 Abuse Screen Answer Date Recorded Feels Unsafe at Home or Work/School no 11/12/2023 Feels Threatened by Someone no 11/02 Does Anyone Try to Keep You From Having Contact with Others or Doing Things Outside Your Home? no 11/12/2023 Physical Signs of Abuse Present no 11/12/2023 Housing Stability Answer Date Recorded Current Living Arrangements home 08/03 Potentially Unsafe Housing Conditions none 08/18/2023 Disabilities Answer Date Recorded Difficulty Concentrating, Remembering or Making Decisions no 08/17/2023 Difficulty Managing Errands Independently no 08/17/2023 Education Answer Date Recorded Help with school or training? Not on file Preferred Language Occitan 08/18/2023 PHQ-2 Answer Date Recorded Patient Health Questionnaire-2 Score 1 09/08/2024 Comments No Sex and Gender Information Value Date Recorded Sex Assigned at Female 11/13/2023 11:14 AM EDT Legal Sex Female 1:16 PM EDT Gender Identity Female 11/13/2023 11:14 AM EDT Sexual Orientation Straight 11/13/2023 11 :14 AM EDT documented as of this encounter Last Filed Vital Signs Vital Sign Reading Time Taken Comments Blood Pressure 126/80 11/15/2024 9:44 AM EDT Pulse 83 11/15/2024 9:44 AM EDT Temperature 36.6 C (97.8 F) 11/15/2024 9:44 AM EDT Respiratory Rate 18 11/15/2024 9:44 AM EDT Oxygen Saturation 97% 11/15/2024 9:44 AM EDT Inhaled Oxygen Concentration - - Weight 122 kg (270 lb) 11/15/2024 9:44 AM EDT Height 170.2 cm (5' 7.01 ) 11/15/2024 9:44 AM ED T Body Mass Index 42.28 11/15/2024 9:44 AM EDT documented in this encounter Progress Notes * Surinder Rocha MD - 11/15/2024 9:45 AM EDT Subjective Cielo Chase is a 59 y.o. female. History of Present Illness Her voice continues to get more and more hoarse the past 3-4 weeks She has been gainign weight as well Watching what she eats Has continued to walk Did stop working in September 2024 due to health issues She has been gaining more and more weight Having shaking spells on occasion Her recent A1C was 6.2 Mood has dimitri ok She had to quit her job Still on wellbutrin, buspar and lexapro Her dog really helps her mood as well Just has been hard this year with multiple healrth issues Gabapentin is helping her pains No SE noted The following portions of the patient's history were reviewed and updated as appropriate: allergies, current medications, past family history, past medical history, past social history, past surgicalhistory, and problem list. Review of Systems Constitutional: Positive for unexpected weight change. HENT: Positive for voice change. Objective Physical Exam Vitals and nursing note reviewed. Constitutional: General: She is not in acute distress. Appearance: Normal appearance. She is well-developed. Cardiovascular: Rate and Rhythm: Normal rate and regular rhythm. Heart sounds: Normal heart sounds. Pulmonary: Effort: Pulmonary effort is normal. Breath sounds: Normal breath sounds. Neurological: Mental Status: She is alert and oriented to person, place, and time. Psychiatric: Mood and Affect: Mood normal. Behavior: Behavior normal. Thought Content: Thought content normal. Judgment: Judgment normal. Assessment & Plan Diagnoses and all orders for this visit: 1. Voice hoarseness (Primary) - Ambulatory Referral to ENT (Otolaryngology) 2. Adjustment disorder with anxious mood - buPROPion XL (Wellbutrin XL) 300 MG 24 hr tablet; Take 1 tablet by mouth Daily. Dispense: 30 tablet; Refill: 5 - busPIRone (BUSPAR) 30 MG tablet; Take 1 tablet by mouth 2 (Two) Times a Day. Dispense: 180 tablet; Refill: 1 3. Generalized anxiety disorder - busPIRone (BUSPAR) 30 MG tablet; Take 1 tablet by mouth 2 (Two) Times a Day. Dispense: 180 tablet; Refill: 1 4. Idiopathic peripheral neuropathy - gabapentin (NEURONTIN) 100 MG capsule; 1 PO QAM Dispense: 30 capsule; Refill: 5 - gabapentin (NEURONTIN) 300 MG capsule; Take 1 capsule by mouth 3 (Three) Times a Day. Dispense: 270 capsule; Refill: 1 5. Bilateral leg pain - gabapentin (NEURONTIN) 100 MG capsule; 1 PO QAM Dispense: 30 capsule; Refill: 5 6. Fibromyalgia - amitriptyline (ELAVIL) 50 MG tablet; Take 1 tablet by mouth every night at bedtime. Dispense: 180tablet; Refill: 2 7. Gastroesophageal reflux disease, unspecified whether esophagitis present - famotidine (PEPCID) 40 MG tablet; Take 1 tablet by mouth every night at bedtime. Dispense: 90 tablet; Refill: 1 8. Moderate episode of recurrent major depressive disorder - buPROPion XL (Wellbutrin XL) 150 MG 24 hr tablet; 1 PO QD with 300 mg dose for total of 450 mg daily Dispense: 90 tablet; Refill: 1 9. Hyperglycemia - Hemoglobin A1c - Insulin, Free & Total, Serum 10. Screening mammogram for breast cancer - Mammo Diagnostic Digital Tomosynthesis Bilateral With CAD; Future 11. Weight gain - CBC & Differential - Comprehensive Metabolic Panel - TSH+Free T4 12. Mixed incontinence urge and stress ENT for hoarseness Slow weight janice, will recheck thyroid. Diet and exercise discussed Will continue gapabeint, this does help pain No change in mood medications, stable but still dealing with stress Will check mammogram as well She does have mixed incontinence and would benefit from incontinence supplies documented in this encounter Plan of Treatment Upcoming Encounters Date Type Department Care Team (Late st Contact Info) Description 03/30/2025 8:45 AM EST Office Visit [facility] [address] [facility] [place] [place] [address] Surinder Rocha MD [address] [place] [address] Scheduled Orders Name Type Priority Associated Diagnoses Orde r Schedule Mammo Diagnostic Digital Tomosynthesis Bilateral With CAD Imaging Routine Screening mammogram for breast cancer Expected: 12/16/2024 (Approximate), Expires: 11/15/2025 documented as of this encounter Procedures Procedure Name Priority Date/Time Associated Diagnosis Comments TSH+FREE T4 Routine 11/15/2024 10:13 AM EDT Weight gain INSULIN, FREE AND TOTAL Routine 11/15/2024 10:13 AM EDT Hyperglycemia CBC AND DIFFERENTIAL Routine 11/15/2024 10:13 AM EDT Weight gain HEMOGLOBIN A1C Routine 11/15/2024 10:13 AM EDT Hyperglycemia COMPREHENSIVE METABOLIC PANEL Routine 11/15/2024 10:13 AM EDT Weight gain documented in this encounter Results * (ABNORMAL) Insulin, Free & Total, Serum (11/15/2024 10:13 AM EDT) [facility] Insulin, Free 45(H) uU/mL [facility] Comment: Reference Range: Pubertal Children and Adults (fasting): 0 - 17 Insulin 45 uU/mL [facility] Comment: Non-Diabetic: In the absence of insulin-binding antibodies, the free and total insulin assays are equivalent. However, this assay is intended for use in diabetics with insulin autoantibody present. Measurement is performed on acid-treated samples and, therefore, the sensitivity and absolute values by this method may differ from our direct insulin ICMA. Insulin Dependent Diabetic Patients: Free Insulin levels vary depending on the capacity and affinity of circulating insulin-binding antibodies and the dose of insulin given to the patient. Total insulin levels represent free insulin and antibody bound insulin fractions. This test was developed and its performance characteristics determined by [employer]. It has not been cleared or approved by the Food and Drug Administration. Blood 11/15/2024 10:1 3 AM EDT 11/15/2024 Narrative [facility] (AMBULATORY) - 11/19/2024 3:07 AM EDT Performed at: 02 - [employer] [address] [place] [id number] Animal Rescuer: Miguel Ángel Rodriguez MD, Phone: [phone] Patient Fasting: Y us Surinder Rocha MD LAB BLOOD ORDERABLES Final Resu lt [facility] (AMBULATORY) [address] [place] [address], [facility] [address] [place] [address], * (ABNORMAL) Hemoglobin A1c (11/15/2024 10:13 AM EDT) Hemoglobin A1C 6.0(H) 4.8 - 5.6 % [facility] Comment: Prediabetes: 5.7 - 6.4 Diabetes: >6.4 Glycemic control for adults with diabetes: <7.0 Blood 11/15/2024 10:1 3 AM EDT 11/15/2024 Narrative [facility] ([facility]) - 11/19/2024 3:07 AM EDT Performed at: - [address] [id number] Animal Rescuer: Vernon Garcia PhD, Phone: [phone] Patient Fasting: Y Surinder Rocha MD LAB BLOOD ORDERABLES Final Resu lt Performing Organization Address City/[facility]/ZIP Co de Phone Number [facility] [address] [place] [address], [facility] [address] [place] [address], * TSH+Free T4 (11/15/2024 10:13 AM EDT) Pathologist [facility] TSH 0.548 0.450 - 4.500 uIU/mL [facility] Free T4 1.66 0.82 - 1.77 ng/dL [facility] Blood 11/15/2024 10:1 3 AM EDT 11/15/2024 Narrative [facility] ([facility]ULATORY) - 11/19/2024 3:07 AM EDT Performed at: [address] [id number] Animal Rescuer: Vernon Garcia PhD, Phone: [phone] Patient Fasting: Y Surinder Rocha MD LAB BLOOD ORDERABLES Final Resu lt Performing Organization Address [facility]/ZIP Co de Phone Number [facility] [address] [place] [address], [facility] [address] [place] [address], * (ABNORMAL) Comprehensive Metabolic Panel (11/15/2024 10:13 AM EDT) Glucose 108(H) 70 - 99 mg/dL [facility] BUN 8 8 - 27 mg/dL [facility] Creatinine 0.89 0.57 - 1.00 mg/dL [facility] EGFR Result 74 >59 mL/min/1.7 3 [facility] BUN/Creatinine Ratio 9(L) 12 - 28 [facility] Sodium 141 134 - 144 mmol/L [facility] Potassium 4.0 3.5 - 5.2 mmol/L [facility] Chloride 105 96 - 106 mmol/L [facility] Total CO2 23 20 - 29 mmol/L [facility] Calcium 8.8 8.7 - 10.3 mg/dL [facility] Total Protein 6.3 6.0 - 8.5 g/dL [facility] Albumin 3.9 3.8 - 4.9 g/dL [facility] Globulin 2.4 1.5 - 4.5 g/dL [facility] Total Bilirubin 0.4 0.0 - 1.2 mg/dL [facility] Alkaline Phosphatase 120 44 - 121 IU/L [facility] AST (SGOT) 25 0 - 40 IU/L [facility] ALT (SGPT) 20 0 - 32 IU/L [facility] Blood 11/15/2024 10:1 3 AM EDT 11/15/2024 Narrative [facility] ([facility]) - 11/19/2024 3:07 AM EDT Performed at: 01 - [facility] [address] [place], [place] [id number] Animal Rescuer: Vernon Garcia PhD, Phone: [phone] Patient Fasting: Y us Surinder Rocha MD LAB BLOOD ORDERABLES Final Resu lt [facility] [place] [address] [place] [address], [facility] [address] [place] [address], * (ABNORMAL) CBC & Differential (11/15/2024 10:13 AM EDT) [facility] WBC 5.2 3.4 - 10.8 x10E3/uL [facility] RBC 4.21 3.77 - 5.28 x10E6/uL [facility] Hemoglobin 10.3(L) 11.1 - 15.9 g/dL [facility] Hematocrit 35.1 34.0 - 46.6 % [facility] MCV 83 79 - 97 fL [facility] MCH 24.5(L) 26.6 - 33.0 pg [facility] MCHC 29.3(L) 31.5 - 35.7 g/dL [facility] RDW 17.7(H) 11.7 - 15.4 % [facility] Platelets 242 150 - 450 x10E3/uL [facility] Neutrophil Rel % 70 Not Estab. % [facility] Lymphocyte Rel % 18 Not Estab. % [facility] Monocyte Rel % 6 Not Estab. % [facility] Eosinophil Rel % 5 Not Estab. % [facility] Basophil Rel % 1 Not Estab. % [facility] Neutrophils Absolute 3.7 1.4 - 7.0 x10E3/uL [facility] Lymphocytes Absolute 0.9 0.7 - 3.1 x10E3/uL [facility] Monocytes Absolute 0.3 0.1 - 0.9 x10E3/uL [facility] Eosinophils Absolute 0.3 0.0 - 0.4 x10E3/uL [facility] Basophils Absolute 0.1 0.0 - 0.2 x10E3/uL [facility] Immature Granulocyte Rel % 0 Not Estab. % [facility] Immature Grans Absolute 0.0 0.0 - 0.1 x10E3/uL [facility] Blood 11/15/2024 10:1 3 AM EDT 11/15/2024 [facility] ([facility]BULATORY) - 11/19/2024 3:07 AM EDT Performed at: 01 - [facility], [place], [place] [id number] Animal Rescuer: Vernon Garcia PhD, Phone: [phone] Patient Fasting: Y Surinder Rocha MD LAB BLOOD ORDERABLES Final Resu lt [facility] ([facility]ULATORY) [address] [place] [address], [place] [phone] [facility] [address] [place] [address], [place] [phone] documented in this encounter Visit Diagnoses Diagnosis Voice hoarseness- Primary Dysphonia Adjustment disorder with anxious mood Adjustment disorder with anxiety Generalized anxiety disorder Idiopathic peripheral neuropathy Unspecified hereditary and idiopathic peripheral neuropathy Bilateral leg pain Pain in soft tissues of limb Fibromyalgia Unspecified myalgia and myositis Gastroesophageal reflux disease, unspecified whether esophagitis present Moderate episode of recurrent major depressive disorder Hyperglycemia Other abnormal glucose Screening mammogram for breast cancer Weight gain Other symptoms concerning nutrition, metabolism, and development Mixed incontinence urge and stress Mixed incontinence urge and stress (male)(female) documented in this encounter Additional Health Concerns Assessment Noted Time PHQ-2 Depression Total Score: 1 05/20/19 24 12:36 PM EST documented as of this encounter Care Teams Director Of Restaurant Operations Relationship Specialty Start Date End Date Surinder Rocha MD [address] [place] [address] PCP - General Family Medicine 10/05/19 documented as of this encounter
[2025-01-10 14:06] VITALS: BP 152/78; PULSE 82; RESP 20; TEMP 36.9; O2SAT 98; BMI 39.1
--- OUTSIDE RECORDS SUMMARY | 2025-01-10 14:13 | XMS_ITS | Encounter Summary ---
Author Organization [facility] Address [address] [place] [address] Care Team Providers Care Bottle Carrier Name Role Phone Surinder Rocha MD Primary Care Provider [phone] Reason for Visit * Reason Comments Med Refill Encounter Details Date Type Department Care Team (Late st Contact Info) Description 10/07/2019 Refill [facility] [address] [place] [address] Surinder Rocha MD [address] [place], [place] [id number] Complicated migraine Social History Tobacco Use Types Packs/Day Years Used Date Smoking Tobacco: Never Smokeless Tobacco: Never Alcohol Use Standard Drinks/Week Comments No 0 (1 standard drink = 0.6 oz pur e alcohol) PHQ-2 Answer Date Recorded Retired Total Score 0 09/15/2019 Comments No Sex and Gender Information Value Date Recorded Sex Assigned at Female 11/13/2023 11:14 AM EDT Legal Sex Female 1:16 PM EDT Gender Identity Female 11/13/2023 11:14 AM EDT Sexual Orientation Straight 11/13/2023 11 :14 AM EDT documented as of this encounter Plan of Treatment Upcoming Encounters Date Type Department Care Team (Late st Contact Info) Description 03/30/2025 8:45 AM EST Office Visit [facility] [address] [place] [address] Surinder Rocha MD [address] [place] [address] documented as of this encounter Visit Diagnoses Diagnosis Complicated migraine Migraine, unspecified, without mention of intractable migraine without mention of status migrainosus documented in this encounter Additional Health Concerns Infection Onset Date Last Indicated Resolved Time COVID Screen (preop/placement) 04/24/2020 04/24/2020 04/25/2020 1:35 AM EST COVID Screen (preop/placement) 08/19/2020 08/19/2020 08/19/2020 3:31 AM EDT documented as of this encounter Care Teams Bottle Carrier Relationship Specialty Start Date End Date Surinder Rocha MD [address] [place] [address] PCP - General Family Medicine 10/05/19 documented as of this encounter
--- OUTSIDE RECORDS SUMMARY | 2025-01-10 14:13 | XMS_ITS | Encounter Summary ---
[facility] Address [address] [place] [address] Care Team Providers Care Manager Hris Name Role Phone Surinder Smiley MD Primary Care Provider [phone] Reason for Visit * Reason Onset Date Comments MEDICAL SUPPLIES 11/15/2024 Encounter Details Date Type Department Care Team (Late st Contact Info) Description 11/15/2024 Telephone [facility] [address] [place] [address] Surinder Smiley MD [address] [facility] [address] [place], [place] [id number] MEDICAL SUPPLIES Social History Tobacco Use Types Packs/Day Years [...] or training? Not on file Preferred Language Thai 08/18/2023 PHQ-2 Answer Date Recorded Patient Health Questionnaire-2 Score 1 09/08/2024 Comments No Sex and Gender Information Value Date Recorded Sex Assigned at Female 11/13/2023 11:14 AM EDT Legal Sex Female 1:16 PM EDT Gender Identity Female 11/13/2023 11:14 AM EDT Sexual Orientation Straight 11/13/2023 11 :14 AM EDT documented as of this encounter Miscellaneous Notes * Telephone Encounter - Irena Adams MA - 11/25/2024 11:13 AM EDT Pt is requesting update on this. * Telephone Encounter - Surinder Smiley MD - 11/17/2024 1:23 PM EDT I will look for this, have not sen it yet * Telephone Encounter - Ann Arango Reg[employer] Rep - 11/15/2024 2:14 PM EDT Caller: Cielo Chase Relationship: Self Best call back number: [phone] Equipment requested: INCONTIENCE SUPPLIES Prescribing Provider: DR SMILEY Additional information or concerns: PATIENT WAS SEEN TODAY AND FORGOT TO MENTION TO DR MORRIN THAT HE WILL BE GETTING FORM FROM [employer] FOR HER SUPPLIES; HE JUST NEEDS TO BE FILLED OUT AND SENT BACK documented in this encounter Plan of Treatment Upcoming Encounters Date Type Department Care Team (Late st Contact Info) Description 03/30/2025 8:45 AM EST Office Visit [facility] [address] [place] [phone] Surinder Smiley MD [address] [place] [address] documented as of this encounter Visit Diagnoses Not on filedocumented in this encounter Additional Health Concerns Assessment Noted Time PHQ-2 Depression Total Score: 1 05/20/19 24 12:36 PM EST documented as of this encounter Care Teams Manager Hris Relationship Specialty Start Date End Date Surinder Smiley MD [address] [place] [address] PCP - General Family Medicine 10/05/19 documented as of this encounter
--- OUTSIDE RECORDS SUMMARY | 2025-01-10 14:13 | XMS_ITS | Encounter Summary ---
Author Organization [facility] ystem Address [address] [place] [address] Care Team Providers Care Environmental Lead Name Role Phone Surinder Rocha MD Primary Care Provider [phone] Encounter Details Date Type Department Care Team (Late st Contact Info) Description 11/25/2024 Results Follow-Up [facility] [address] [place] [address] Surinder Rocha MD [address] [place], [place] [id number] Social History Tobacco Use Types Packs/Day Years [...] or training? Not on file Preferred Language Iraqi 08/18/2023 PHQ-2 Answer Date Recorded Patient Health [...] 8:45 AM EST Office Visit [facility] [address] [place] [address] Surinder Rocha MD [address] [place] [address] documented as of this encounter Visit Diagnoses Not on filedocumented in this encounter Additional Health Concerns Assessment Noted Time PHQ-2 Depression Total Score: 1 05/20/19 24 12:36 PM EST documented as of this encounter Care Teams Environmental Lead Relationship Specialty Start Date End Date Surinder Rocha MD [address] [place] [address] PCP - General Family Medicine 10/05/19 documented as of this encounter
--- OUTSIDE RECORDS SUMMARY | 2025-01-10 14:13 | XMS_ITS | Encounter Summary ---
[facility] Address [address] [place] [address] Care Team Providers Care Vc++ Developer Name Role Phone Surinder Rocha MD Primary Care Provider [phone] Encounter Details Date Type Department Care Team (Latest Contact Info) Description 11/15/2024 Travel Social History Tobacco Use Types Packs/Day Years [...] or training? Not on file Preferred Language Salvadorean 08/18/2023 PHQ-2 Answer Date Recorded Patient Health [...] [facility] [address] [address] Surinder Rocha MD [address] [address] documented as of this encounter Visit Diagnoses Not on filedocumented in this encounter Additional Health Concerns Assessment Noted Time PHQ-2 Depression Total Score: 1 05/20/19 24 12:36 PM EST documented as of this encounter Care Teams Vc++ Developer Relationship Specialty Start Date End Date Surinder Rocha MD [address] [place] [address] PCP - General Family Medicine 10/05/19 documented as of this encounter
--- OUTSIDE RECORDS SUMMARY | 2025-01-10 14:13 | XMS_ITS | Encounter Summary ---
[facility] Address [address] [place] [address] Care Team Providers Care Lidar Technician Name Role Phone Surinder Rocha MD Primary Care Provider [phone] Reason for Visit * Reason Comments Med Refill Encounter Details Date Type Department Care Team (Late st Contact Info) Description 07/13/2021 Refill [facility] [address] [place] [address] Surinder Rocha MD [address] [place], [place] [id number] Gastroesophageal reflux disease, unspecified whether esophagitis present; Adjustment disorder with anxious mood; Idiopathic peripheral neuropathy; Insomnia, unspecified type Social History Tobacco Use Types Packs/Day Years Used Date Smoking Tobacco: Never Smokeless Tobacco: Never Alcohol Use Standard Drinks/Week Comments No 0 (1 standard drink = 0.6 oz pur e alcohol) PHQ-2 Answer Date Recorded Retired Total Score 2 08/19/2020 Comments No Sex and Gender Information Value Date Recorded Sex Assigned at Female 11/13/2023 11:14 AM EDT Legal Sex Female 1:16 PM EDT Gender Identity Female 11/13/2023 11:14 AM EDT Sexual Orientation Straight 11/13/2023 11 :14 AM EDT documented as of this encounter Miscellaneous Notes * Telephone Encounter - Seda Cabral MA - 07/13/2021 10:49 AM EST Rx Refill Note Requested Prescriptions Pending Prescriptions Disp Refills ??? pantoprazole (PROTONIX) 40 MG EC tablet [Pharmacy Med Name: Pantoprazole Sodium 40 MG Oral Tablet Delayed Release] 90 tablet 0 Sig: Take 1 tablet by mouth once daily ??? amitriptyline (ELAVIL) 50 MG tablet [Pharmacy Med Name: Amitriptyline HCl 50 MG Oral Tablet] 90tablet 0 Sig: TAKE 1 TABLET BY MOUTH EVERY DAY AT BEDTIME ??? gabapentin (NEURONTIN) 300 MG capsule [Pharmacy Med Name: Gabapentin 300 MG Oral Capsule] 270 capsule 0 Sig: TAKE 1 CAPSULE BY MOUTH THREE TIMES DAILY ??? zolpidem (AMBIEN) 10 MG tablet [Pharmacy Med Name: Zolpidem Tartrate 10 MG Oral Tablet] 90 tablet 0 Sig: TAKE 1 TABLET BY MOUTH AT NIGHT NEEDED FOR SLEEP Last office visit with prescribing clinician: 04/11/2021 Next office visit with prescribing clinician: Visit date not found Seda Cabral MA 07/13/21, 10:49 EST documented in this encounter Plan of Treatment Upcoming Encounters Date Type Department Care Team (Late st Contact Info) Description 03/30/2025 8:45 AM EST Office Visit [facility] [address] [facility] [place] [address] Surinder Rocha MD [address] [facility] [place] [address] documented as of this encounter Visit Diagnoses Diagnosis Gastroesophageal reflux disease, unspecified whether esophagitis present Adjustment disorder with anxious mood Adjustment disorder with anxiety Idiopathic peripheral neuropathy Unspecified hereditary and idiopathic peripheral neuropathy Insomnia, unspecified type documented in this encounter Care Teams Lidar Technician Relationship Specialty Start Date End Date Surinder Rocha MD [address] [place] [address] PCP - General Family Medicine 10/05/19 documented as of this encounter
--- OUTSIDE RECORDS SUMMARY | 2025-01-10 14:13 | XMS_ITS | Encounter Summary ---
[facility] Address [address] [address] Care Team Providers Care Container Filler Name Role Phone Surinder Rocha MD Primary Care Provider [phone] Reason for Visit * Reason Onset Date Comments Med Refill 11/16/2024 Encounter Details Date Type Department Care Team (Late st Contact Info) Description 11/16/2024 Refill [facility] [address] [facility] [place] [address] Jeanette Hooks, PARamanC 210 [facility] [address] [place], [place] [id number] Moderate persistent asthma with exacerbation Social History Tobacco Use Types Packs/Day Years [...] or training? Not on file Preferred Language Macanese 08/18/2023 PHQ-2 Answer Date Recorded Patient Health [...] Description 03/30/2025 8:45 AM EST Office Visit [facility] [address] [place] [phone] Surinder Rocha MD [address] [place] [address] documented as of this encounter Visit Diagnoses Diagnosis Moderate persistent asthma with exacerbation Unspecified asthma, with exacerbation documented in this encounter Additional Health Concerns Assessment Noted Time PHQ-2 Depression Total Score: 1 05/20/19 24 12:36 PM EST documented as of this encounter Care Teams Container Filler Relationship Specialty Start Date End Date Surinder Rocha MD [address] [place] [address] PCP - General Family Medicine 10/05/19 documented as of this encounter
--- OUTSIDE RECORDS SUMMARY | 2025-01-10 14:13 | XMS_ITS | Clinical Summary ---
Author Organization [facility] Address [address] [place] [address] Care Team Providers Care Spread Cutter Name Role Phone Surinder Rocha MD Primary Care Provider Allergies Active Allergy Reactions Criticality Noted Date Comments Duloxetine Hcl Swelling High 05/02/2014 Latex Hives High 07/13/2015 Pregabalin Angioedema High 06/26/2011 Medications albuterol 108 (90 Base) MCG/ACT inhaler INHALE 1 PUFF BY MOUTH EVERY 4 HOURS NEEDED FOR WHEEZING 3 Active amitriptyline (Elavil) 50 MG tablet Take 50 mg by mouth every night. 3 Active busPIRone (Buspar) 30 MG tablet Take 30 mg by mouth 2 (two) times a day. 3 Active cyclobenzaprine (Flexeril) 10 MG tablet Take 10 mg by mouth 3 (three) times a day if needed for muscle spasms. 3 Active escitalopram (Lexapro) 20 MG tablet Take 20 mg by mouth 1 (one) time each day. 3 Active famotidine (Pepcid) 40 MG tablet Take 40 mg by mouth every night. 3 Active fluticasone (Flonase) 50 MCG/ACT nasal spray USE 1 SPRAY(S) IN EACH NOSTRIL TWICE DAILY DIRECTED 3 Active gabapentin (Neurontin) 300 MG capsule Take 300 mg by mouth 3 times a day. 3 Active levocetirizine (Xyzal) 5 MG tablet Take 5 mg by mouth 1 (one) time each day in the evening. 3 Active lidocaine (Lidoderm) 5 % patch 3 Active valACYclovir (Valtrex) 500 MG tablet 3 Active zolpidem (Ambien) 10 MG tablet Take 10 mg by mouth at night if needed for sleep. 3 Active levothyroxine (Synthroid, Levoxyl) 100 MCG tablet Take 100 mcg by mouth 1 (one) time each day. 3 Active ondansetron ODT (Zofran-ODT) 8 MG disintegrating tablet DISSOLVE 1 TABLET IN MOUTH EVERY 8 HOURS NEEDED FOR NAUSEA FOR VOMITING 90 tablet 4 Active dexlansoprazole (Dexilant) [address] capsule Take 1 capsule (60 mg total) by mouth 1 (one) time each day. FOLLOW UP WITH PROVIDER REQUIRED FOR ADDITIONAL REFILLS 90 capsule 5 Active linaCLOtide (Linzess) 290 MCG capsule Take 1 capsule by mouth 1 (one) time each day. 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 Autoantibody titer detected 04/21/2023 Elevated C-reactive protein (CRP) 04/21/2023 Gastroparesis 10/29/2022 Esophageal dysphagia 10/29/2022 Mild intermittent asthma with acute exacerbation 09/15/2019 10/29/2022 Ischemic colitis 11/27/2016 10/29/2022 Arthritis 12/22/2015 10/29/2022 Memory loss 12/22/2015 10/29/2022 Peripheral neuropathy 12/22/2015 10/29/2022 Adjustment disorder with anxious mood 09/27/2015 10/29/2022 Depressive disorder 09/27/2015 10/29/2022 Female stress incontinence 09/27/201510/29 Fibromyalgia 09/27/2015 10/29/2022 Gastroesophageal reflux disease 09/27/2015 10/29/2022 Generalized anxiety disorder 09/27/2015 Hypothyroidism 09/27/2015 10/29/2022 Insomnia 09/27/2015 10/29/2022 Family History Medical History Relation Name Comments Alcohol abuse Father Breast cancer Mother Ovarian cancer Mother Relation Name Status Comments Father Mother Social History Tobacco Use Types Packs/Day Years Used Date Smoking Tobacco: Never Passive Smoke Exposure: Never Smokeless Tobacco: Never Tobacco Cessation:Counseling Given: Not Answered Alcohol Use Standard Drinks/Week Comments Never 0 (1 standard drink = 0.6 oz pur e alcohol) Comments Unknown Sex and Gender Information Value Date Recorded Sex Assigned at Not on file Legal Sex Female 4:52 PM EDT Gender Identity Not on file Sexual Orientation Not on file Last Filed Vital Signs Vital Sign Reading Time Taken Comments Blood Pressure 117/79 06/05/2023 12:43 PM EST Pulse 76 06/05/2023 12:43 PM EST Temperature 36.5 C (97.7 F) 06/05/2023 12:43 PM EST Respiratory Rate - - Oxygen Saturation 94% 06/05/2023 12:43 PM EST Inhaled Oxygen Concentration - - Weight 111 kg (244 lb) 06/05/2023 12:43 PM EST Height 170.2 cm (5' 7 ) 05/29/2023 11:01 AM EST Body Mass Index 38.22 05/29/2023 11:01 AM EST Plan of Treatment Health Maintenance Due Date Last Done Comments CT Colonography 1964 Colonoscopy 1964 Colorectal Cancer Screening 1964 FIT-DNA (Cologuard) 1964 FIT 1964 FOBT 1964 HIV Screening 1964 Hepatitis C Screening 1964 Sigmoidoscopy 1964 MMR Vaccines (1 of 1 - Standard series) 1965 Hepatitis B Screening 1982 DTaP/Tdap/Td Vaccines (1 - Tdap) 1983 Pneumococcal Vaccine: 50+ Years (1 of 2 - PCV) 1983 Zoster Vaccines (1 of 2) 2014 Mammogram 01/24/2022 01/24/2021, 12/03, 04/07/2019, Additional history exists Depression Risk Screening 05/05/2024 SDOH Screening 05/05/2024 COVID-19 Vaccine ( season) 2025 04/24/2021, 06/16/2020, 05/19/2020 Influenza Vaccine (#1) 2025 3, 01/14/2022, 12/30/2020, Additional history exists HIB Vaccines Aged Out No longer eligi ble based on patient's age to complete this topic HPV Vaccines Aged Out No longer eligi ble based on patient's age to complete this topic Hepatitis A Vaccines Aged Out No long er eligible based on patient's age to complete this topic Hepatitis B Vaccines Aged Out No long er eligible based on patient's age to complete this topic IPV Vaccines Aged Out No longer eligi ble based on patient's age to complete this topic Meningococcal B Vaccine Aged Out No l onger eligible based on patient's age to complete this topic Meningococcal Vaccine Aged Out No [place] jesus eligible based on patient's age to complete this topic Rotavirus Vaccines Aged Out No longer eligible based on patient's age to complete this topic Insurance ANTH Care Teams Spread Cutter Relationship Specialty Start Date End Date Surinder Rocha MD [address] [facility] [place] [address] PCP - General Family Medicine 08/02/22
--- OUTSIDE RECORDS SUMMARY | 2025-01-10 14:13 | XMS_ITS | Encounter Summary ---
Author Organization [facility] Address [address] [place] [address] Care Team Providers Care Napper Fixer Name Role Phone Surinder Rocha MD Primary Care Provider [phone] Reason for Visit * Reason Onset Date Comments Results 11/22/2024 Encounter Details Date Type Department Care Team (Late st Contact Info) Description 11/22/2024 Telephone [facility] [address] [place] [address] Surinder Rocha MD [address] [place], [place] [id number] Results Social History Tobacco Use Types Packs/Day Years [...] or training? Not on file Preferred Language Barbadian 08/18/2023 PHQ-2 Answer Date Recorded Patient Health Questionnaire-2 Score 1 09/08/2024 Comments No Sex and Gender Information Value Date Recorded Sex Assigned at Female 11/13/2023 11:14 AM EDT Legal Sex Female 1:16 PM EDT Gender Identity Female 11/13/2023 11:14 AM EDT Sexual Orientation Straight 11/13/2023 11 :14 AM EDT documented as of this encounter Miscellaneous Notes * Telephone Encounter - Wilma Méndez - 11/22/2024 1:34 PM EDT Caller: iCelo Chase Relationship: Self Best call back number: [phone] Caller requesting test results: PATIENT What test was performed: LABS When was the test performed: 11/15/24 Where was the test performed: IN OFFICE Additional notes: PHONE CALL PLEASE documented in this encounter Plan of Treatment Upcoming Encounters Date Type Department Care Team (Late st Contact Info) Description 03/30/2025 8:45 AM EST Office Visit [facility] [address] [address] Surinder Rocha MD [address] [address] documented as of this encounter Visit Diagnoses Not on filedocumented in this encounter Additional Health Concerns Assessment Noted Time PHQ-2 Depression Total Score: 1 05/20/19 24 12:36 PM EST documented as of this encounter Care Teams Napper Fixer Relationship Specialty Start Date End Date Surinder Rocha MD [address] [place] [address] PCP - General Family Medicine 10/05/19 documented as of this encounter
--- OUTSIDE RECORDS SUMMARY | 2025-01-10 14:13 | XMS_ITS | Encounter Summary ---
Author Organization [facility] Address [address] [place] [address] Care Team Providers Care Vulcanizing Machine Operator Name Role Phone Surinder Smiley MD Primary Care Provider [phone] Reason for Visit * Reason Onset Date Comments PHARMACY CALLS 11/30/2024 Encounter Details Date Type Department Care Team (Late st Contact Info) Description 11/30/2024 Telephone [facility] [address] [facility] [place] [address] Surinder Smiley MD [address] [facility] [address] [place], [place] [phone] PHARMACY CALLS Social History Tobacco Use Types Packs/Day Years [...] or training? Not on file Preferred Language Martiniquais 08/18/2023 PHQ-2 Answer Date Recorded Patient Health Questionnaire-2 Score 1 09/08/2024 Comments No Sex and Gender Information Value Date Recorded Sex Assigned at Female 11/13/2023 11:14 AM EDT Legal Sex Female 1:16 PM EDT Gender Identity Female 11/13/2023 11:14 AM EDT Sexual Orientation Straight 11/13/2023 11 :14 AM EDT documented as of this encounter Miscellaneous Notes * Telephone Encounter - Andreia Baron - 12/01/2024 10:57 AM EDT New script was sent in after this message. * Telephone Encounter - Vicenta Hernandes RegSched Rep - 11/30/2024 1:46 PM EDT Pharmacy Name: [id number] - [place] - [address] [phone] [facility] [phone] Pharmacy inventory representative phone number: [phone] What medication are you calling in regards to: Fluticasone-Salmeterol (ADVAIR/WIXELA) 100-50 MCG/ACT DISKUS What question does the pharmacy have: PHARMACY WOULD LIKE TO CHANGE QUANTITY TO 60 OR PATIENT WILL RUN OUT OF PRESCRIPTION TOO FAST Who is the provider that prescribed the medication: DR SMILEY Additional notes: documented in this encounter Plan of Treatment Upcoming Encounters Date Type Department Care Team (Late st Contact Info) Description 03/30/2025 8:45 AM EST Office Visit [facility] [address] [place] [address] Surinder Smiley MD [address] [place] [address] documented as of this encounter Visit Diagnoses Not on filedocumented in this encounter Additional Health Concerns Assessment Noted Time PHQ-2 Depression Total Score: 1 05/20/19 24 12:36 PM EST documented as of this encounter Care Teams Vulcanizing Machine Operator Relationship Specialty Start Date End Date Surinder Smiley MD [address] [place] [address] PCP - General Family Medicine 10/05/19 documented as of this encounter
--- OUTSIDE RECORDS SUMMARY | 2025-01-10 14:13 | XMS_ITS | Encounter Summary ---
Author Organization [facility] Address [address] [place] [address] Care Team Providers Care Headlight Adjuster Name Role Phone Surinder Rocha MD Primary Care Provider [phone] Reason for Visit * Reason Comments Med Refill Encounter Details Date Type Department Care Team (Late st Contact Info) Description 11/06/2019 Refill [facility] [address] [place] [address] January Flores DO [address] [place], [place] [id number] Insomnia, unspecified type Social History Tobacco Use [...] Description 03/30/2025 8:45 AM EST Office Visit [facility] [address] [place] [phone] Surinder Rocha MD [address] [place] [address] documented as of this encounter Visit Diagnoses Diagnosis Insomnia, unspecified type documented in this encounter Additional Health Concerns Infection Onset Date Last Indicated Resolved Time COVID Screen (preop/placement) 04/24/2020 04/24/2020 04/25/2020 1:35 AM EST COVID Screen (preop/placement) 08/19/2020 08/19/2020 08/19/2020 3:31 AM EDT documented as of this encounter Care Teams Headlight Adjuster Relationship Specialty Start Date End Date Surinder Rocha MD [address] [place] [address] PCP - General Family Medicine 10/05/19 documented as of this encounter
--- OUTSIDE RECORDS SUMMARY | 2025-01-10 14:13 | XMS_ITS | Encounter Summary ---
[facility] Address [address] [place] [address] Care Team Providers Care Bread Panner Name Role Phone Surinder Rocha MD Primary Care Provider [phone] Reason for Visit * Reason Onset Date Comments Med Refill 11/16/2024 Encounter Details Date Type Department Care Team (Late st Contact Info) Description 11/16/2024 Refill [facility] [address] [place] [address] Surinder Rocha MD [address] [place], [place] [phone] Seasonal allergic rhinitis, unspecified trigger Social History Tobacco Use Types Packs/Day Years [...] or training? Not on file Preferred Language Surinamese 08/18/2023 PHQ-2 Answer Date Recorded Patient Health [...] [facility] [address] [place] [phone] Surinder Rocha MD [address] [place] [address] documented as of this encounter Visit Diagnoses Diagnosis Seasonal allergic rhinitis, unspecified trigger documented in this encounter Additional Health Concerns Assessment Noted Time PHQ-2 Depression Total Score: 1 05/20/19 24 12:36 PM EST documented as of this encounter Care Teams Bread Panner Relationship Specialty Start Date End Date Surinder Rocha MD [address] [place] [address] PCP - General Family Medicine 10/05/19 documented as of this encounter
--- OUTSIDE RECORDS SUMMARY | 2025-01-10 14:13 | XMS_ITS | Encounter Summary ---
Author Organization [facility] Address [address] [place] [address] Care Team Providers Care Heel Lift Gouger Name Role Phone Surinder Rocha MD Primary Care Provider [phone] Reason for Visit * Reason Comments Med Refill Encounter Details Date Type Department Care Team (Late st Contact Info) Description 06/15/2020 Refill [facility] [address] [place] [address] Surinder Rocha MD [address] [place], [place] [id number] Idiopathic peripheral neuropathy Social History Tobacco Use Types Packs/Day Years [...] Description 03/30/2025 8:45 AM EST Office Visit [facility] [address] [address] Surinder Rocha MD [address] [place] [address] documented as of this encounter Visit Diagnoses Diagnosis Idiopathic peripheral neuropathy Unspecified hereditary and idiopathic peripheral neuropathy documented in this encounter Additional Health Concerns Infection Onset Date Last Indicated Resolved Time COVID Screen (preop/placement) 08/19/2020 08/19/2020 08/19/2020 3:31 AM EDT documented as of this encounter Care Teams Heel Lift Gouger Relationship Specialty Start Date End Date Surinder Rocha MD [address] [place] [address] PCP - General Family Medicine 10/05/19 documented as of this encounter
--- OUTSIDE RECORDS SUMMARY | 2025-01-10 14:13 | XMS_ITS | Encounter Summary ---
Author Organization [facility] Address [address] [place] [address] Care Team Providers Care Truck And Transport Mechanic Name Role Phone Surinder Rocha MD Primary Care Provider [phone] Reason for Visit * Reason Comments Med Refill Encounter Details Date Type Department Care Team (Late st Contact Info) Description 11/30/2024 Refill [facility] [address] [place] [address] Jeanette Hooks, PA-C [address] [facility] [address] [place], [place] [phone] Moderate persistent asthma with exacerbation Social History [...] or training? Not on file Preferred Language Guyanese 08/18/2023 PHQ-2 Answer Date Recorded Patient Health [...] Description 03/30/2025 8:45 AM EST Office Visit [facility] [address] [place] [phone] Surinder Rocha MD [address] [place] [address] documented as of this encounter Visit Diagnoses Diagnosis Moderate persistent asthma with exacerbation Unspecified asthma, with exacerbation documented in this encounter Additional Health Concerns Assessment Noted Time PHQ-2 Depression Total Score: 1 05/20/19 24 12:36 PM EST documented as of this encounter Care Teams Truck And Transport Mechanic Relationship Specialty Start Date End Date Surinder Rocha MD [address] [place] [address] PCP - General Family Medicine 10/05/19 documented as of this encounter
--- OUTSIDE RECORDS SUMMARY | 2025-01-10 14:13 | XMS_ITS | Clinical Summary ---
[facility] Address [address] [place] [address] Care Team Providers Care Vp & General Counsel Name Role Phone Surinder Rocha MD Primary Care Provider [phone] Allergies Active Allergy Reactions Criticality Noted Date Comments Duloxetine Hcl Swelling High 05/02/2014 Hydrocodone Bit-Homatrop Mbr Itching 024 Hydrocodone Itching 11/05/2023 Latex Hives High 07/13/2015 Pregabalin Angioedema High 06/26/2011 Medications levocetirizine (XYZAL) 5 MG tablet Take 1 tablet by mouth Every Evening. 3 Active ondansetron ODT (ZOFRAN-ODT) 4 MG disintegrating tabletIndications: Nausea DISSOLVE 1 TABLET IN MOUTH EVERY 8 HOURS NEEDED FOR NAUSEA OR VOMITING 15 tablet 3 Active linaclotide (LINZESS) 290 MCG capsule capsule Take 1 capsule by mouth Daily. 4 Active lubiprostone (AMITIZA) 24 MCG capsule Take 1 capsule by mouth 2 (Two) Times a Day With Meals. 4 Active pseudoephedrine (SUDAFED) 120 MG 12 hr tablet 1 PO BID PRN congestion 60 tablet 3 4 Active lidocaine (LIDODERM) 5 % USE 1 PATCH EXTERNALLY EVERY 12 HOURS. WEAR FOR 12 HOURS AND THEN OFF FOR 12 HOURS 90 patch 4 Active Xiidra 5 % ophthalmic solution PLACE 1 DROP IN EACH EYE TWICE A DAY 4 Active furosemide (Lasix) 40 MG tabletIndications: Bilateral lower extremity edema 1 PO QAM PRN 30 tablet 4 Active Diclofenac Sodium 3 % gel gel APPLY 1 INCH TO AFFECTED AREA FOUR TIMES DAILY 5 Active meloxicam (MOBIC) 7.5 MG tablet TAKE 1 TO 2 TABLETS BY MOUTH ONCE DAILY WITH FOOD NEEDED SPARINGLY 5 Active valACYclovir (Valtrex) 1000 MG tabletIndications: HSV infection Take 1 tablet by mouth Daily. 90 tablet 1 5 Active albuterol (PROVENTIL) (2.5 MG/3ML) 0.083% nebulizer solution Take by nebulization. 5 Active escitalopram (LEXAPRO) 20 MG tabletIndications: Adjustment disorder with anxious mood TAKE 1 & 1/2 (ONE & ONE-HALF) TABLETS BY MOUTH ONCE DAILY 135 tablet 5 Active azelastine (ASTELIN) 0.1 % nasal spray Administer 2 sprays into the nostril(s) as directed by provider 2 (Two) Times a Day. Use in each nostril as directed Active levothyroxine (SYNTHROID, LEVOTHROID) 125 MCG tabletIndications: Acquired hypothyroidism Take 1 tablet by mouth Daily. 90 tablet 5 Active montelukast (SINGULAIR) 10 MG tabletIndications: Moderate persistent asthma with exacerbation Take 1 tablet by mouth Every Night. 90 tablet 5 Active promethazine-dextr omethorphan (PROMETHAZINE-DM) 6.25-15 MG/5ML syrup Take 5 mL by mouth 4 (Four) Times a Day As Needed for Cough. 240 mL 5 Active pantoprazole (Protonix) 40 MG EC tabletIndications: Gastroesophageal reflux disease, unspecified whether esophagitis present Take 1 tablet by mouth 2 (Two) Times a Day. 180 tablet 1 5 Active zolpidem (AMBIEN) 10 MG tabletIndications: Insomnia, unspecified type Take 1 tablet by mouth At Night As Needed for Sleep. 90 tablet 1 5 Active buPROPion XL (Wellbutrin XL) 300 MG 24 hr tabletIndications: Adjustment disorder with anxious mood Take 1 tablet by mouth Daily. 30 tablet 5 5 Active busPIRone (BUSPAR) 30 MG tabletIndications: Adjustment disorder with anxious mood,Generalized anxiety disorder Take 1 tablet by mouth 2 (Two) Times a Day. 180 tablet 1 5 Active gabapentin (NEURONTIN) 100 MG capsuleIndications :Idiopathic peripheral neuropathy,Bilater al leg pain 1 PO QAM 30 capsule 5 5 Active gabapentin (NEURONTIN) 300 MG capsuleIndications :Idiopathic peripheral neuropathy Take 1 capsule by mouth 3 (Three) Times a Day. 270 capsule 1 5 Active amitriptyline (ELAVIL) 50 MG tabletIndications: Fibromyalgia Take 1 tablet by mouth every night at bedtime. 180 tablet 2 5 Active famotidine (PEPCID) 40 MG tabletIndications: Gastroesophageal reflux disease, unspecified whether esophagitis present Take 1 tablet by mouth every night at bedtime. 90 tablet 1 5 Active buPROPion XL (Wellbutrin XL) 150 MG 24 hr tabletIndications: Moderate episode of recurrent major depressive disorder 1 PO QD with 300 mg dose for total of 450 mg daily 90 tablet 5 Active fluticasone (FLONASE) 50 MCG/ACT nasal sprayIndications:S easonal allergic rhinitis, unspecified trigger Administer 2 sprays into the nostril(s) as directed by provider Daily. 11 g 5 Active albuterol sulfate HFA 108 (90 Base) MCG/ACT inhalerIndications :Moderate persistent asthma with exacerbation 1-2 puffs q 4-6 hours PRN 18 g 5 Active Fluticasone-Salmet ranjana (ADVAIR/WIXELA) 100-50 MCG/ACT DISKUSIndications: Moderate persistent asthma with exacerbation INHALE 1 DOSE BY MOUTH TWICE DAILY 60 each 5 Active Active Problems Problem Noted Date Diagnosed Date ROBLES (dyspnea on exertion) 09/24/2024 Assessment & Plan (09/24/2024 12:16 PM EDT): Complete echo and blood work Discussed signs/symptoms that warrant immediate medical attention Moderate persistent asthma with exacerbation Assessment & Plan (09/24/2024 12:17 PM EDT): Asthma is worsening. The patient is experiencing daily asthma symptoms and she is experiencing no nighttime asthma symptoms. Plan: Begin taking the following medication/s; Advair. Discussed medication dosage, use, side effects, and goals of treatment in detail. Discussed distinction between quick-relief and maintenance control medications. Discussed monitoring symptoms and use of quick-relief medications and contacting provider early in the course of exacerbations. Warning signs of respiratory distress were reviewed with the patient. Patient Treatment Goals: symptom prevention, minimizing limitation in activity, prevention of exacerbations and use of ER/inpatient care, maintenance of optimal pulmonary function, and minimization of adverse effects of treatment. Followup at the next regular appointment. Ventral hernia 08/17/2023 Mild intermittent asthma with acute exacerbation 09/15/2019 Ischemic colitis 11/27/2016 Arthritis 12/22/2015 Peripheral neuropathy 12/22/2015 Memory loss 12/22/2015 Gastroesophageal reflux disease 09/27/2015 Adjustment disorder with anxious mood 09/27/2015 Atopic rhinitis 09/27/2015 Depression 09/27/2015 Fibromyalgia 09/27/2015 Generalized anxiety disorder 09/27/2015 Hypothyroidism 09/27/2015 Insomnia 09/27/2015 Stress incontinence in female 09/27/2015 Resolved Problems Problem Noted Date Diagnosed Date Resolved Date Left sided numbness 08/18/2020 08/20/19 21 Headache 04/25/2020 04/25/2020 Chest pain 04/24/2020 04/25/2020 Hyperlipemia 04/05/2019 04/25/2020 Difficulty with speech 04/04/201909/28 Weight loss 04/03/2019 08/22/2020 Chest pain 04/03/2019 08/25/2019 Constipation 01/05/2016 08/22/2020 Anemia 12/22/2015 09/29/2019 Chronic pain 12/22/2015 08/22/2020 Gait disturbance 12/22/2015 09/29/2019 Anxiety 09/27/2015 08/22/2020 Bladder irritability 09/27/2015 020 Nausea and vomiting 09/27/2015 08/25/19 Bilateral sensorineural hearing loss 08/02/2015 11/02/2021 Encounters Date Type Department Care Team Description 12/03/2024 Telephone [facility] [address] [address] Surinder Rocha MD PAPERWORK REQUEST 11/30/2024 Telephone [facility] [address] [place] [address] Surinder Rocha MD PHARMACY CALLS 11/30/2024 Refill [facility] [address] [address] Jeanette Hooks PA-C Moderate persistent asthma with exacerbation 11/25/2024 Results Follow-Up [facility] [address] [address] Surinder Rocha MD 11/24/2024 Telephone [facility] [address] [address] Surinder Rocha MD diagnosis on mammogram needs updated 11/22/[address] [facility] [address] [address] Surinder Rocha MD Results 11/16/2024 Refill [facility] [address] [facility] [place] [address] Jeanette Hooks, JOSÉ LUISC Moderate persistent asthma with exacerbation 11/16/2024 Refill [facility] [address] [facility] [place] [address] Surinder Rocha MD Seasonal allergic rhinitis, unspecified trigger 11/15/2024 9:45 AM EDT Office Visit [facility] [address] [place] [address] Surinder Rocha MD Voice hoarseness (Primary Dx); Adjustment disorder with anxious mood; Generalized anxiety disorder; Idiopathic peripheral neuropathy; Bilateral leg pain; Fibromyalgia; Gastroesophageal reflux disease, unspecified whether esophagitis present; Moderate episode of recurrent major depressive disorder; Hyperglycemia; Screening mammogram for breast cancer; Weight gain; Mixed incontinence urge and stress 11/15/2024 Telephone [facility] [address] [place] [address] Surinder Rocha MD MEDICAL SUPPLIES 11/15/2024 Travel 11/02/2024 Refill [facility] [address] [place] [address] Jeanette Hooks, PARamanC Moderate persistent asthma with exacerbation 10/11/2024 Telephone [facility] [address] [address] Surinder Rocha MD CALL BACK REQUEST from Last 3 Months Immunizations Immunization Administration Dates Next Due COVID-19 (MODERNA) 1st,2nd,3 rd Dose Monovalent 04/24/2021,06/16/2020,05/19/2020 Flu Vaccine Intradermal Quad 18-64YR 01/18/2023 Flu Vaccine Quad PF >36MO 12/30/2020,01/04/2020, 01/27/2018 Flu Vaccine Split Quad 12/30/2020,2019,01/23/2019,2017 Fluzone >6mos 01/10/2017 Fluzone (or Fluarix & Flulav al for VFC) >6mos 01/14/2022,12/30/2020,01/06/2020,2018,01/27/2018 Fluzone Quad >6mos (Multi-dose) 01/04/2020 Hepatitis A 02/26/2018,08/22/2017 Hepatitis B 03/22/2017,10/24/2016,09/20/2016 Hepatitis B Adult/Adolescent IM 03/22/2017,10/24,09/20/2016 Influenza recombinant 12/06/2023 Influenza, Unspecified 12/06/2023 Pneumococcal Conjugate 20-Va lent (PCV20) 10/09/2021 Shingrix 09/27/2017,07/29/2017 Tdap 04/09/2016 Family History Medical History Relation Name Comments No Known Problems Brother Alcohol abuse Father Jaden arredondo Breast cancer Maternal Aunt unknown No Known Problems Maternal Grandfather No Known Problems Maternal Grandmother Anemia Mother Cielo chase Asthma Mother Cielo chase Breast cancer Mother Cielo chase Ovarian cancer Mother Cielo chase Alcohol abuse Other 1 uncle Heart defect Other 1 uncle Diabetes Other 2 grandmother No Known Problems Paternal Grandfather No Known Problems Paternal Grandmother No Known Problems Sister Relation Name Status Comments Brother Alive Father Jaden arredondo Alive Maternal Aunt Alive Maternal Grandfather Maternal Grandmother Mother Cielo chase Alive Other 1 uncle Other 2 grandmother Paternal Grandfather Paternal Grandmother Sister Alive Social History Tobacco Use Types Packs/Day Years Used Date Smoking Tobacco: Never Smokeless Tobacco: Never Tobacco Cessation:Counseling Given: Not Answered Alcohol Use Standard Drinks/Week Comments No 0 [...] or training? Not on file Preferred Language Romanian 08/18/2023 PHQ-2 Answer Date Recorded Patient Health Questionnaire-2 Score 1 09/08/2024 Comments No Sex and Gender Information Value Date Recorded Sex Assigned at Female 11/13/2023 11:14 AM EDT Legal Sex Female 1:16 PM EDT Gender Identity Female 11/13/2023 11:14 AM EDT Sexual Orientation Straight 11/13/2023 11 :14 AM EDT Last Filed Vital Signs Vital Sign Reading [...] Mass Index 42.28 11/15/2024 9:44 AM EDT Plan of Treatment Upcoming Encounters Date Type Department Care Team (Late st Contact Info) Description 03/30/2025 8:45 AM EST Office Visit [facility] [address] [place] [address] Surinder Rocha MD [address] [place] [address] Health Maintenance Due Date Last Done Comments Annual Gynecologic Pelvic an d Breast Exam 1965 COLOGUARD 2009 COLON CANCER SCREENING 5 YEA R SIGMOIDOSCOPY [address] COLONOGRAPHY 2009 FECAL OCCULT BLOOD TEST 2009 FIT Testing (1 year) 2009 ANNUAL PHYSICAL 09/27/2015 COVID-19 Vaccine (4 - 2024-2 6 season) 2025 04/24/2021, 06/16/2020, 05/19/2020 INFLUENZA VACCINE 02/02/2025 12/06/2023, , 12/06/2023, Additional history exists LIPID PANEL 04/07/2025 04/07/2024, 0211/2023, 07/31/2022, Additional history exists MAMMOGRAM 12/02/2025 12/03/2023, 11/02, 01/24/2021, Additional history exists TDAP/TD VACCINES (2 - Td or Tdap) 04/09/2026 016 COLONOSCOPY 03/31/2033 03/31/2023, 03/06, 10/29/2016, Additional history exists COLORECTAL CANCER SCREENING 03/31/2033 ZOSTER VACCINE Completed 09/27/2017, 07/29/2017 HEPATITIS C SCREENING Completed 04/14/2019 , 06/03/2016, 06/03/2016, Additional history exists Pneumococcal Vaccine 50+ Completed 10/09/2021 Procedures Procedure Name Priority Date/Time Associated Diagnosis Comments CBC AND DIFFERENTIAL Routine 11/15/2024 10:13 AM EDT Weight gain INSULIN, FREE AND TOTAL Routine 11/15/2024 10:13 AM EDT Hyperglycemia HEMOGLOBIN A1C Routine 11/15/2024 10:13 AM EDT Hyperglycemia TSH+FREE T4 Routine 11/15/2024 10:13 AM EDT Weight gain COMPREHENSIVE METABOLIC PANEL Routine 11/15/2024 10:13 AM EDT Weight gain LIPID PANEL Routine 04/07/2024 10:43 AM EST Elevated cholesterol SCANNED - INFLUENZA 12/06/2023 MAMMO DIAGNOSTIC DIGITAL TOMOSYNTHESIS RIGHT W CAD Routine 12/03/2023 9:58 AM EDT Abnormal mammogram SCANNED - COLONOSCOPY 03/31/2023 HEPATITIS C ANTIBODY Routine 04/14/2019 10:48 AM EST Possible exposure to STD from Last 3 Months or Most Recently Relevant to Health Maintenance Results * TSH+Free T4 (11/15/2024 10:13 AM EDT) TSH 0.548 0.450 - 4.500 uIU/mL [facility] Free T4 1.66 0.82 - 1.77 ng/dL [facility] Blood 11/15/2024 10:1 3 AM EDT 11/15/2024 Narrative [facility] (AMBULATORY) - 11/19/2024 3:07 AM EDT Performed at: 01 - [facility] [address] [facility], [place], [place] [id number] Fireworks Display Specialist: Vernon Garcia PhD, Phone: [phone] Patient Fasting: Y us Surinder Rocha MD LAB BLOOD ORDERABLES Final Resu lt [facility] [address] [place] [address], [place] [phone] [facility] [address] [place] [address], [place] [phone] * (ABNORMAL) Insulin, Free & Total, Serum (11/15/2024 10:13 AM EDT) [facility] [address] Insulin, Free 45(H) uU/mL [facility] Comment: [...] developed and its performance characteristics determined by [facility]. It has not been cleared or approved by the Food and Drug Administration. Blood 11/15/2024 10:1 3 AM EDT 11/15/2024 N[facility]ative [facility] - 11/19/2024 3:07 AM EDT Performed at: 02 - [facility] [address] [place] [id number] Fireworks Display Specialist: Miguel Ángel Rodriguez MD, Phone: [phone] Patient Fasting: Y us Surinder Rocha MD LAB BLOOD ORDERABLES Final Resu lt [facility] ([facility]BULATORY) [address] [place] [address], [place] [phone] [facility] [address] [place] [address], * (ABNORMAL) CBC & Differential (11/15/2024 10:13 AM EDT) WBC 5.2 3.4 - 10.8 x10E3/uL [facility] [...] Blood 11/15/2024 10:1 3 AM EDT 11/15/2024 [facility] (AMBULATORY) - 11/19/2024 3:07 AM EDT Performed at: [address] [place] [id number] Fireworks Display Specialist: Vernon Garcia PhD, Phone: [phone] Patient Fasting: Y Surinder Rocha MD LAB BLOOD ORDERABLES Final Resu lt Performing Organization Address [facility]/ZIP Co de Phone Number [facility] [address] [place] [address], [facility] [address] [place] [address], [place] [phone] * (ABNORMAL) Hemoglobin A1c (11/15/2024 10:13 AM EDT) Pathologist [facility] Hemoglobin A1C 6.0(H) 4.8 - 5.6 % [facility] Comment: Prediabetes: 5.7 - 6.4 Diabetes: >6.4 Glycemic control for adults with diabetes: <7.0 Blood 11/15/2024 10:1 3 AM EDT 11/15/2024 [facility] (AMBULATORY) - 11/19/2024 3:07 AM EDT Performed at: [address] [place] [id number] Fireworks Display Specialist: Vernon Garcia PhD, Phone: [phone] Patient Fasting: Y Surinder Rocha MD LAB BLOOD ORDERABLES Final Resu lt Performing Organization Address City/[facility]/ZIP Co de Phone Number [facility] [address] [place] [address], [place] [phone] [facility] [address] [place] [address], [place] [phone] * (ABNORMAL) Comprehensive Metabolic Panel (11/15/2024 10:13 [...] 11/15/2024 10:1 3 AM EDT 11/15/2024 Narrative [facility] - 11/19/2024 3:07 AM EDT Performed at: 01 - [address] [id number] Fireworks Display Specialist: Vernon Garcia PhD, Phone: [phone] Patient Fasting: Y us Surinder Rocha MD LAB BLOOD ORDERABLES Final Resu lt [facility] [place] (AMBULATORY) [address] [id number], [facility] [address] [id number], * (ABNORMAL) Lipid Panel (04/07/2024 10:43 AM EST) Pathologist [facility] Total Cholesterol 170 0 - 200 mg/dL [facility] Comment: Cholesterol Reference Ranges (U.S. Department of Health and Human Services ATP III Classifications) Desirable <200 mg/dL Borderline High 200-239 mg/dL High Risk >240 mg/dL Triglyceride Reference Ranges (U.S. Department of Health and Human Services ATP III Classifications) Normal <150 mg/dL Borderline High 150-199 mg/dL High 200-499 mg/dL Very High >500 mg/dL HDL Reference Ranges (U.S. Department of Health and Human Services ATP III Classifications) Low <40 mg/dl (major risk factor for CHD) High >60 mg/dl ('negative' risk factor for CHD) LDL Reference Ranges (U.S. Department of Health and Human Services ATP III Classifications) Optimal <100 mg/dL Near Optimal 100-129 mg/dL Borderline High 130-159 mg/dL High 160-189 mg/dL Very High >189 mg/dL Triglycerides 134 0 - 150 mg/dL [facility] HDL Cholesterol 27(L) 40 - 60 mg/dL [facility] VLDL Cholesterol Gopal 24 5 - 40 mg/dL [facility] LDL Chol Calc (NIH) 119(H) 0 - 100 mg/dL [facility] Blood 04/07/2024 10:4 3 AM EST 04/07/2024 Narrative [facility] (AMBULATORY) - 2024 3:09 AM EST Performed at: [address] [place] [id number] Fireworks Display Specialist: Forrest Box MD, Phone: [phone] Patient Fasting: Y Surinder Rocha MD LAB BLOOD ORDERABLES Final Resu lt [facility] (AMBULATORY) [address] [place] [address], [facility] [address] [place] [address], [place] [phone] * IMAGING SCANNED (12/06/2023) Formerly named [facility] CHART REVIEW TABS Final Re sult * Mammo Diagnostic Digital Tomosynthesis Right With CAD (12/03/2023 9:58 AM EDT) Anatomical Region Laterality Modality Breast Right Mammography 12/03/2023 12:1 2 PM EDT Impressions 12/03/2023 5:28 PM EDT Probably benign right mammographic and ultrasound findings, as described above. RECOMMENDATION: 1. Short interval right mammographic follow-up with tomosynthesis and right 9:00 periareolar ultrasound follow-up in 6 months. 2. The Tyrer-Cuzick risk assessment model will be resent to the patient to include her positive maternal family history of breast cancer and ovarian cancer. If the patient's estimated lifetime risk for developing breast cancer is 20% or greater, she is a candidate for annual high-risk screening breast MRI imaging. BI-RADS CATEGORY 3, PROBABLY BENIGN. CAD was utilized. The standard false-negative rate of mammography is between 10% and 25%. Complex patterns or increased breast density will markedly elevate the false-negative rate of mammography. A results letter, in lay terminology, will be given to the patient at the conclusion of the exam. _ PHYSICIAN ORDER DIAGNOSTIC 6 MONTH FOLLOW UP MAMMOGRAM AND/OR BREAST ULTRASOUND. DIAGNOSIS: ABNORMAL MAMMOGRAM This report was finalized on 12/03/2023 5:[address] Nallely Handley MD. Narrative 12/03/2023 5:28 PM EDT RIGHT DIAGNOSTIC MAMMOGRAM AND RIGHT BREAST ULTRASOUND HISTORY: The patient was recalled from screening mammography dated 11/19/2023 for additional imaging of the right breast. Her mother and maternal aunt were diagnosed with breast cancer. The patient's mother was also diagnosed with ovarian cancer. The patient indicates that she has not undergone genetic counseling. Furthermore, she did not report her positive family history of breast and ovarian cancer when filling out the Tyrer-Cuzick risk assessment questionnaire. The patient has a history of autoimmune disease (Bushra's thyroiditis). She denies recent right upper extremity vaccinations. TECHNIQUE: Right MLO focal compression, right ML, and right CC focal compression views were obtained with tomosynthesis. Focused ultrasound imaging was performed of the right lateral breast. The patient was scanned by the technologist and the radiologist. COMPARISON: 11/19/2023, 12/20/2020, 04/07/2019, 04/01/2018, 01/11/2014 FINDINGS: Additional mammographic imaging of the right breast demonstrates persistent focal nodular asymmetries in the 9:00 periareolar region and 10:00 periareolar region. There are intramammary lymph nodes in the 8:00 region measuring 0.9 cm and 9:00 region measuring 0.9 cm. These lymph nodes appear slightly increased in size compared to prior mammographic imaging. Focused ultrasound imaging of the right lateral breast demonstrates there are sonographically unremarkable lymph nodes in the 9 o'clock position and 830-9:00 region measuring 0.9 cm. These lymph nodes correspond to the oval masses visualized on mammographic imaging. There is a 1.4 cm oval, isoechoic mass in the 9:00 periareolar region that has sonographically benign characteristics. This mass may represent a fibroadenoma or a prominent fat lobule. There is a 0.8 cm intramammary lymph node in the 10:00/periareolar region. No suspicious ultrasound findings were identified. us Vanessa Troy MD IMG MAMMOGRAPHY ORDERABLES Fin al Result * SCANNED - COLONOSCOPY (03/31/2023) us Surinder Rocha MD CHART REVIEW TABS Final Resu lt * Hepatitis C Antibody (04/14/2019 10:48 AM EST) Hep C Virus Ab 0.3 0.0 - 0.9 s/co ratio [facility] Comment: Negative: < 0.8 Indeterminate: 0.8 - 0.9 Positive: > 0.9 The CDC recommends that a positive HCV antibody result be followed up with a HCV Nucleic Acid Amplification test (062690). Blood 04/14/2019 10:4 8 AM EST 04/14/2019 Narrative [facility] ([facility]BULATORY) - 04/17/2019 7:08 AM EST Performed at: 02 - [facility] [address] [place], [place] [id number] Fireworks Display Specialist: Vernon Garcia PhD, Phone: [phone] us Surinder Rocha MD LAB BLOOD ORDERABLES Final Resu lt [facility] (AMBULATORY) [address] [place] [address], [facility] [address] [place] [address], from Last 3 Months or Most Recently Relevant to Health Maintenance Advance Directives * CPR (Attempt to Resuscitate) (Latest Code Status on File) Date Activated Date Inactivated Comments 08/17/2023 7:36 PM 08/18/2023 2:59 PM Question Answer Comments Code Status (Patient has no pulse and is not breathing): CPR (Attempt to Resuscitate) Medical Interventions (Patie nt has pulse or is breathing): Full Support Level Of Support Discussed With: Patient * CPR (Attempt to Resuscitate) Date Activated Date Inactivated Comments 08/19/2020 12:06 AM 08/20/2020 2:18 PM Question Answer Comments Code Status (Patient has no pulse and is not breathing): CPR (Attempt to Resuscitate) Medical Interventions (Patie nt has pulse or is breathing): Full * CPR (Attempt to Resuscitate) Date Activated Date Inactivated Comments 04/24/2020 11:01 PM 04/25/2020 7:55 PM Question Answer Comments Code Status (Patient has no pulse and is not breathing): CPR (Attempt to Resuscitate) Medical Interventions (Patie nt has pulse or is breathing): Full * CPR (Attempt to Resuscitate) Date Activated Date Inactivated Comments 04/03/2019 10:53 PM 04/05/2019 5:31 PM Question Answer Comments Code Status (Patient has no pulse and is not breathing): CPR (Attempt to Resuscitate) Medical Interventions (Patie nt has pulse or is breathing): Full Level Of Support Discussed With: Patient Care Teams Vp & General Counsel Relationship Specialty Start Date End Date Surinder Rocha MD [address] [place] [address] PCP - General Family Medicine 10/05/19
--- OUTSIDE RECORDS SUMMARY | 2025-01-10 14:13 | XMS_ITS | Encounter Summary ---
Author Organization [facility] Address [address] [place] [address] Care Team Providers Care Housecleaner Name Role Phone Surinder Rocha MD Primary Care Provider [phone] Encounter Details Date Type Department Care Team (Late st Contact Info) Description 09/09/2024 Results Follow-Up [facility] [address] [place] [address] Surinder Rocha MD [address] [place], [place] [id number] Social History Tobacco Use Types Packs/Day Years [...] or training? Not on file Preferred Language Swedish 08/18/2023 PHQ-2 Answer Date Recorded Patient Health [...] HOSP[facility] [address] [place] [address] Surinder Rocha MD [address] [place] [address] documented as of this encounter Visit Diagnoses Not on filedocumented in this encounter Additional Health Concerns Assessment Noted Time PHQ-2 Depression Total Score: 1 05/20/19 24 12:36 PM EST documented as of this encounter Care Teams Housecleaner Relationship Specialty Start Date End Date Surinder Rocha MD [address] [place] [address] PCP - General Family Medicine 10/05/19 documented as of this encounter
--- OUTSIDE RECORDS SUMMARY | 2025-01-10 14:13 | XMS_ITS | Encounter Summary ---
Author Organization [facility] Address [address] [place] [address] Care Team Providers Care Taxi Truck Driver Name Role Phone Surinder Rocha MD Primary Care Provider [phone] Reason for Visit * Reason Onset Date Comments Med Refill 11/09/2019 Encounter Details Date Type Department Care Team (Late st Contact Info) Description 11/09/2019 Refill [facility] [address] [place] [address] January Flores, [address] [place], [place] [id number] Adjustment disorder with anxious mood; Insomnia, unspecified type Social History Tobacco Use [...] Description 03/30/2025 8:45 AM EST Office Visit [facility] [address] [place], [place] [id number] Surinder Rocha MD [address] [place] [id number] documented as of this encounter Visit Diagnoses Diagnosis Adjustment disorder with anxious mood Adjustment disorder with anxiety Insomnia, unspecified type documented in this encounter Additional Health Concerns Infection Onset Date Last Indicated Resolved Time COVID Screen (preop/placement) 04/24/2020 04/24/2020 04/25/2020 1:35 AM EST COVID Screen (preop/placement) 08/19/2020 08/19/2020 08/19/2020 3:31 AM EDT documented as of this encounter Care Teams Taxi Truck Driver Relationship Specialty Start Date End Date Surinder Rocha MD [address] [place] [address] PCP - General Family Medicine 10/05/19 documented as of this encounter
--- OUTSIDE RECORDS SUMMARY | 2025-01-10 14:13 | XMS_ITS | Encounter Summary ---
[facility] Organization [facility] Address [address] [place] [address] Care Team Providers Care Coater Operator Insulation Board Name Role Phone Surinder Rocha MD Primary Care Provider [phone] Reason for Visit * Reason Onset Date Comments PAPERWORK REQUEST 12/03/2024 Encounter Details Date Type Department Care Team (Late st Contact Info) Description 12/03/2024 Telephone [facility] [address] [facility] [place] [address] Surinder Rocha MD [address] [facility] [address] [place], [place] [id number] PAPERWORK REQUEST Social History Tobacco Use Types Packs/Day Years [...] or training? Not on file Preferred Language Moroccan 08/18/2023 PHQ-2 Answer Date Recorded Patient Health Questionnaire-2 Score 1 09/08/2024 Comments No Sex and Gender Information Value Date Recorded Sex Assigned at Female 11/13/2023 11:14 AM EDT Legal Sex Female 1:16 PM EDT Gender Identity Female 11/13/2023 11:14 AM EDT Sexual Orientation Straight 11/13/2023 11 :14 AM EDT documented as of this encounter Miscellaneous Notes * Telephone Encounter - Jaqui Li MA - 12/03/2024 11:12 AM EDT Evon faxed this morning. * Telephone Encounter - Brie Kebede RegSched Rep - 12/03/2024 10:36 AM EDT Caller: [facility] Relationship: Best call back number: [phone] What form or medical record are you requesting: DME FORM Who is requesting this form or medical record from you: [facility] How would you like to receive the form or medical records (pick-up, mail, fax): FAX If fax, what is the fax number: [phone] Timeframe paperwork needed: SETH Additional notes: [facility] RECEIVED THE DOCUMENTATION THEY HAD REQUESTED FROM THE OFFICE, BUT ON THE DME FORM SECTION B NEEDS TO BE REFILLED OUT. SHE STATES ALL QUESTIONS NEED TO BE ANSWERED INCLUDING DATE LAST PRESCRIBED. SHE WILL BE REFAXING THE FORM TO THE OFFICE FOR COMPLETION SOON THEY ARE ABLE. PLEASE CALL WITH ANY ADDITIONAL QUESTIONS. documented in this encounter Plan of Treatment Upcoming Encounters Date Type Department Care Team (Late st Contact Info) Description 03/30/2025 8:45 AM EST Office Visit [facility] [address] [place] [address] Surinder Rocha MD [address] [place] [address] documented as of this encounter Visit Diagnoses Not on filedocumented in this encounter Additional Health Concerns Assessment Noted Time PHQ-2 Depression Total Score: 1 05/20/19 24 12:36 PM EST documented as of this encounter Care Teams Coater Operator Insulation Board Relationship Specialty Start Date End Date Surinder Rocha MD [address] [place] [address] PCP - General Family Medicine 10/05/19 documented as of this encounter
--- OUTSIDE RECORDS SUMMARY | 2025-01-10 14:13 | XMS_ITS | Encounter Summary ---
[facility] Address [address] [place] [address] Care Team Providers Care Tube Puller Name Role Phone Surinder Rocha MD Primary Care Provider [phone] Reason for Referral * Diagnostic Imaging (Routine) - Authorized Specialty Diagnoses / Procedures Referred By Contac t Referred To Contact Radiology Diagnoses Abnormal mammogram Procedures US breast bilateral complete Surinder Rocha MD [address] [place] [address] Phone: tel: fax: [facility] [address] [place] [address] Phone: tel: Referral ID Status Reason Start Date Expiration Date V isits Requested Visits Authorized Authorized 11/26/2024 02/25/2026 1 1 * Diagnostic Imaging (Routine) - Closed Specialty Diagnoses / Procedures Referred By Contac t Referred To Contact Radiology Diagnoses Abnormal mammogram Procedures Mammo Diagnostic Digital Tomosynthesis Bilateral With CAD Surinder Rocha MD [address] [place] [address] Phone: tel: fax: [facility] [address] [place] [address] Phone: tel: Referral ID Status Reason Start Date Expiration Date Visits Re quested Visits Authorized [id number] Closed 11/26/2024 02/25/2026 1 1 Reason for Visit * Reason Onset Date Comments diagnosis on mammogram needs updated 11/24/2024 Encounter Details Date Type Department Care Team (Late st Contact Info) Description 11/24/2024 Telephone [facility] [address] [place] [address] Surinder Rocha MD [address] [place] [address] diagnosis on mammogram needs updated Social History Tobacco Use Types Packs/Day Years [...] or training? Not on file Preferred Language Jamaican 08/18/2023 PHQ-2 Answer Date Recorded Patient Health Questionnaire-2 Score 1 09/08/2024 Comments No Sex and Gender Information Value Date Recorded Sex Assigned at Female 11/13/2023 11:14 AM EDT Legal Sex Female 1:16 PM EDT Gender Identity Female 11/13/2023 11:14 AM EDT Sexual Orientation Straight 11/13/2023 11 :14 AM EDT documented as of this encounter Miscellaneous Notes * Telephone Encounter - Surinder Rocha MD - 11/26/2024 8:30 AM EDT She had abnormal mammogram in 11/25 and was told to f/u in 6 months. New order placed with Dx: abnl mammogram * Telephone Encounter - Barbara Smart RegSched Rep - 11/24/2024 9:17 AM EDT Diagnostic mammogram diagnosis says screening mammogram can you update this. Per scheduling - All Diagnostic Mammograms should have a reason for this exam and associated ICD10 code; such as abnormal finding for screening mammogram which requires additional diagnostic studies and or/ signs and or symptoms, such as breast pain, lump, mass, etc. documented in this encounter Plan of Treatment Upcoming Encounters Date Type Department Care Team (Late st Contact Info) Description 03/30/2025 8:45 AM EST Office Visit [facility] [address] [address] Surinder Rocha MD [address] [address] Scheduled Orders Name Type Priority Associated Diagnoses Orde r Schedule Mammo Diagnostic Digital Tomosynthesis Bilateral With CAD Imaging Routine Abnormal mammogram Expected: 12/27/2024 (Approximate), Expires: 11/26/2025 US breast bilateral complete Imaging Routine Abnormal mammogram Expected: 11/27/2024, Expires: 02/26/2026 documented as of this encounter Visit Diagnoses Diagnosis Abnormal mammogram- Primary Abnormal mammogram, unspecified documented in this encounter Additional Health Concerns Assessment Noted Time PHQ-2 Depression Total Score: 1 05/20/19 24 12:36 PM EST documented as of this encounter Care Teams Tube Puller Relationship Specialty Start Date End Date Surinder Rocha MD [address] [place] [address] PCP - General Family Medicine 10/05/19 documented as of this encounter
--- NOTE | 2025-01-10 14:19 | ED_ITS ---
<Statement entered by Wilber Farris MD - 01/10/25 19:01> I was consulted by the JUANCARLOS, and we discussed the complexity of the problems being addressed. I approve the treatment and management plan for this patient's care in the emergency department, thus performing a substantive portion of the medical decision making. Wilber Farris MD Discharge Plan Disposition Patient Disposition: Home, Self-Care Condition: Good Prescriptions Prescriptions: No Action lidocaine 5 % adhesive patch,medicated 1 patch transdermal PRN Patient Comments: USE 1 PATCH EXTERNALLY EVERY 12 HOURS WEAR FOR 12 HOURS AND THEN OFF FOR 12 HOURS buspirone 30 mg tablet 30 mg PO Patient Comments: TAKE 1 TABLET BY MOUTH TWICE DAILY lubiprostone 24 mcg capsule PO Patient Comments: TAKE 1 CAPSULE BY MOUTH TWICE DAILY WITH MEALS famotidine 40 mg tablet 40 mg PO PRN Patient Comments: TAKE 1 TABLET BY MOUTH EVERY DAY AT BEDTIME albuterol sulfate 90 mcg/actuation HFA aerosol inhaler 1 puff inhalation PRN Patient Comments: INHALE 1 PUFF BY MOUTH EVERY 4 HOURS NEEDED FOR WHEEZING cetirizine [All Day Allergy (cetirizine)] 10 mg tablet 10 mg PO DAILY PRN (Reason: allergy symptoms) Qty: 30 0RF azelastine 137 mcg (0.1 %) spray,non-aerosol 137 mcg intranasal BID PRN Rx Instructions: administer into each nostril ondansetron 8 mg tablet,disintegrating 8 mg PO TID PRN (Reason: nausea and vomiting) Qty: 60 2RF amitriptyline 50 MG tablet 50 mg PO HS gabapentin 300 MG capsule 300 mg PO HS zolpidem 10 MG tablet 10 mg PO HS escitalopram oxalate 20 MG tablet 30 mg PO HS levothyroxine 100 MCG tablet 100 mg PO DAILY fluticasone propionate 120 SPR/BOT bottle 1 - 2 spr intranasal DAILY promethazine-DM 6.25-15 mg/5 mL Syrup 5 ml PO Q6H PRN (Reason: Cough) Qty: 240 0RF Referrals Follow up/Referrals: Surinder Rocha [Primary Care Provider, Medical] - See instructions Activity Restrictions/Add. Instructions Additional Instructions/Restrictions: Please return to the emergency department with any worsening signs or symptoms. Please utilize direct pressure if your wound starts bleeding again and use wound care supplies as needed. Clinical Impressions Clinical Impression: Laceration of left thumb Instructions Patient Instructions: DI for Laceration Repair -- Finger, DI for Laceration Repair-Skin Glue Print Language Print Language: Maltese Discharge ED Provider: Wilber Farris Adult HPI General Chief complaint: Wound/Laceration Stated complaint: AO 01/10/2025 left thumb laceration Time Seen by Provider: 01/10/25 14:12 Mode of Arrival: Ambulatory Source of Information: Patient Description of Symptoms (Recalled from ER Triage Doc. by RN): pt presents to ED with laceration on left thumb. pt states she was peeling potatoes when she cut h er left thumb. pt states she is on daily aspirin. History of Present Illness HPI narrative: 59-year-old female presents to the emergency department with a left thumb laceration, patient states that she was cutting potatoes , when she sustained a laceration to her left thumb, she denies any other acute symptomatology, denies any fever chills chest pain shortness of breath nausea vomiting constipation diarrhea, she has past medical history consistent with IBS, hypothyroidism, GERD, GIULIANA/MDD. Initial triage vitals unremarkable. Please note that above description of symptoms, in this electronic medical record under categorization of recalled from ER triage doctor by RN are reflective of an initial nursing assessment, however, is not reflective of my full history and physical exam that was personally taken and clarified. Consequentially, this preceding description of symptoms, which may include the patient's categorized chief complaint in the EMR, do not reflect my personal clinical impression, and the ultimate description of history of present illness and patient stated complaints should be deferred to this section of the note. Unless stated otherwise or congruent with this section of the note, additional signs, symptoms, or incongruence should be interpreted as inaccurate with my clinical impression. Onset (ago): hour(s) Related Data Home Medications ?Medication ?Instructions ?Recorded ?Confirmed amitriptyline 50 mg tablet 50 mg PO HS MOOD 12/04/17 0 11/18/24 escitalopram oxalate 20 mg tablet 30 mg PO HS Depressi on 12/04/17 11/18/24 gabapentin 300 mg capsule 300 mg PO HS fibromylagia 11/18/24 zolpidem 10 mg tablet 10 mg PO HS Insomnia 8 11/18/24 levothyroxine 100 mcg tablet 100 mg PO DAILY THYROID 0 12/05/17 11/18/24 fluticasone propionate 50 1 - 2 spr intranasal DAILY A llergy 06/22/20 11/18/24 mcg/actuation nasal symptoms spray,suspension lidocaine 5 % topical patch 1 patch transdermal PRN 11/18/24 buspirone 30 mg tablet 30 mg PO 05/06/23 11/18/24 lubiprostone 24 mcg capsule mcg PO 05/06/23 11/18/24 albuterol sulfate 90 mcg/actuation 1 puff inhalation P RN 11/18/24 11/18/24 aerosol inhaler azelastine 137 mcg (0.1 %) nasal 137 mcg intranasal BI D PRN 11/18/24 11/18/24 spray famotidine 40 mg tablet 40 mg PO PRN 11/18/24 Previous Rx's ?Medication ?Instructions ?Recorded promethazine-DM 6.25 mg-15 mg/5 mL 5 ml PO Q6H PRN Cou gh #240 mL 04/04/24 oral syrup cetirizine 10 mg tablet (All Day 10 mg PO DAILY PRN al lergy 04/21/24 Allergy (cetirizine)) symptoms #30 tabs ondansetron 8 mg disintegrating 8 mg PO TID PRN nausea and 11/18/24 tablet vomiting #60 tabs Allergies Allergy/AdvReac Type Severity Reaction Status Date / Time duloxetine (From Cymbalta) Allergy Mild Verified 11/18/24 11:02 latex Allergy Mild Verified 11/18/24 11:02 pregabalin (From Lyrica) Allergy Verified 11/18/24 11:02 sulfamethoxazole (From AdvReac Verified 11/18/24 11:02 Bactrim) trimethoprim (From Bactrim) AdvReac Verified 11/18/24 11:02 PFSH PFS Disclaimer: The information contained in this section may have been updated after the patient was seen, as this information can be updated by other users. Medical History (Updated 01/10/25 @ 14:36 by RANDALL Gutierrez) Deviated nasal tip Sarcoma Thyroid Nodule Cervical lymphadenopathy Hoarseness Hypothyroidism Dysphagia Surgical History (Updated 11/18/24 @ 11:11 by Liliana Caputo MA) History of hysterectomy History of hernia surgery History of bilateral knee replacement Family History (Updated 11/18/24 @ 11:12 by Liliana Caputo MA) Other No significant family history Social History Smoking Status: Never smoker second hand exposure: No alcohol intake: never current occupational status: other Travel in the last 8 weeks?: None household members: family housing: house current occupational exposures/hazards: No caffeine: Yes Have you lived/traveled outside [place] in past 30 days?: No Contact w/someone who lives/traveled outside US past 30 days?: No Exposure to someone with infectious disease in past 14 days?: No Do you have a fever (greater than 100.4 F or 38 C)?: No Have you tested positive for COVID-19?: No Exposed to someone with COVID-19 in past 14 days?: No Do you have a sore throat?: No Do you have a cough?: No Do you have any weakness?: No Do you have any diarrhea?: No Are you experiencing any unusual bleeding?: No Do you have any muscle aches/pain?: No Do you have any abdominal pain?: No Are you experiencing loss of taste or smell?: No Other Medical History Have you received the Flu Vaccine for this season: Yes Have you received the Pneumonia Vaccine: No ROS Obtained: Yes All systems reviewed & no additional complaints except as documented Physical Exam General General appearance: alert and in no apparent distress Head Head exam: atraumatic and normocephalic Eye Eye exam: Present PERRL and EOMI ENT ENT exam: Present mucous membranes moist Neck Neck exam: Present normal inspection Chest Chest inspection: Present normal inspection and symmetric chest wall rise Respiratory Respiratory exam: Present normal lung sounds bilaterally; Absent respiratory distress Cardiovascular Cardiovascular exam: Present regular rate and normal rhythm Abdominal Exam Abdominal exam: Present soft; Absent tenderness Extremities Exam Extremities exam: Present normal inspection Neurological Exam Neurological exam: Present alert and oriented X3 Psychiatric Psychiatric exam: Present normal affect Skin Skin exam: Present warm, dry and other (Less than 1 cm laceration over the distal left thumb, nailbed is intact, hemostasis is achieved at this time) Medical Decision Making Medical Records Medical records reviewed: Yes I reviewed the patient's medical records. Screening: Per USPSTF and CDC recommendations, given the prevalence of disease in our region, it is our hospital?s policy to screen for HIV and viral Hepatitis for all patients aged 18 and over and those with ongoing risk factors. Reyes Inquiry Pt receiving controlled substance: No Reyes was queried for this patient: No Vital Signs: 01/10/25 14:06 Temperature 98.5 F Temperature Source Oral Pulse Rate [Right Radial] 82 Respiratory Rate 20 Blood Pressure [Right Arm] 152/78 H Blood Pressure Mean [Right Arm] 102 Blood Pressure Source [Right Arm] Automatic Cuff Blood Pressure Position [Right Arm] Sitting 02 Sat by Pulse Oximetry 98 Oxygen Delivery Method Room Air Orders (Tests/Meds): ED MEDICATIONS Discontinued Medications Generic Name Dose Route Start Last Admin Trade Name Freq PRN Reason Stop Dose Admin Tetanus/Reduced Diphtheria/Acell Pertussis 0.5 ml 01/10/25 14:18 01/10/25 14:27 Tet/Diphth/Pert-Adult 0.5ml Syringe IM 01/10/25 14:19 0.5 ml .ONCE ONE Administration Medical Decision Narrative: 59-year-old female presents the emergency department with a left thumb laceration, differential diagnose include but not limited to, laceration, abrasion I discussed this patient's case with the attending physician Dr. Farris Patient has a less than 1 cm laceration to the distal left thumb, nailbed is intact, hemostasis achieved, patient is unsure of her tetanus prophylaxis, thus will update tetanus in the emergency department here today. Patient achieved adequate hemostasis with direct pressure, laceration would not be amicable to primary intention with sutures, due to size, length, and depth of the laceration with active hemostasis achieved. Thus will attempt topical adhesive. Patient voiced understanding and agreement with the current treatment plan/discharge plan. After copious irrigation with normal saline and Hibiclens, and updating of the tetanus prophylaxis, patient's for less than 1 cm distal left thumb laceration was closed with Dermabond, patient tolerated well. Patient was given strict ED return precautions. Patient was given generalized wound care precaution as well as and supplies to take home. Patient will return to the emergency department any worsening signs or symptoms. Procedures Laceration Laceration 1: Site: hand Side (If applicable): left Size (cm): 0.5 Description: linear Depth: simple, single layer Pre-repair: irrigated extensively and deep structures intact Skin layer closed with: Dermabond Critical Care Critical Care Time Critical Care Time: No
[2025-01-10] MEDS: TET/DIPHTH/PERT-ADULT 0.5ML SYRINGE 0.5 ML IM (14:27)
[2025-01-10 14:39] VITALS: BP 158/72; PULSE 75; RESP 18; TEMP 36.8; O2SAT 98
== END 2025-01-10 14:39 | disposition home or self-care (01) ==
PROVIDERS: Emergency Provider Student in an Organized Health Care Education/Training Program; PCP Family Medicine
DX: S61.012A Laceration without foreign body of left thumb without damage to nail, initial encounter (principal); W26.0XXA Contact with knife, initial encounter
CPT/HCPCS: 12001; 90471; 90715; 99283

== ENCOUNTER 2025-02-24 10:39 | Day surgery (SDC) | payer MEDICAID, SELFPAY ==
--- NOTE | 2025-02-23 13:46 | EXP.HP ---
History of Present Illness *Admission Date: 02/24/25 *History of present illness: Mrs. Chase is a 59-year-old female who is here for diagnostic upper endoscopy. She has had recurrent dysphagia and has had multiple esophageal dilations over the years. Her last endoscopy was with Dr. Luis Vivas over a year ago. She had a colonoscopy about the same time. The patient does report persistent heartburn, reflux, nausea, frequent clearance of the throat and hoarseness. She is on Protonix twice daily and famotidine nightly. She is getting breakthrough symptoms with significant heartburn and dysphagia with painful swallowing. She has seen ENT and had neck imaging of the thyroid. The patient does report chronic constipation and can go up to a week without a bowel movement she does report dyspepsia and early satiety. The examination is deemed medically necessary for diagnostic EGD. The patient has been seen, interviewed and examined prior to the procedure by both myself and the anesthesia provider. [facility] Disclaimer: The information contained in this section may have been updated after the patient was seen, as this information can be updated by other users. Medical History Deviated nasal tip Sarcoma Thyroid Nodule Cervical lymphadenopathy Hoarseness Hypothyroidism Dysphagia Surgical History History of hysterectomy History of hernia surgery History of bilateral knee replacement Family History Other No significant family history Social History (Updated 02/24/25 @ 11:51 by Satish Edwards CRNA) Smoking Status: Never smoker second hand exposure: No alcohol intake: never substance use type: denies use current occupational status: other Travel in the last 8 weeks?: None household members: family housing: house current occupational exposures/hazards: No caffeine: Yes Have you lived/traveled outside US in past 30 days?: No Contact w/someone who lives/traveled outside US past 30 days?: No Exposure to someone with infectious disease in past 14 days?: No Do you have a fever (greater than 100.4 F or 38 C)?: No Have you tested positive for COVID-19?: No Exposed to someone with COVID-19 in past 14 days?: No Do you have a sore throat?: No Do you have a cough?: No Do you have any weakness?: No Do you have any diarrhea?: No Are you experiencing any unusual bleeding?: No Do you have any muscle aches/pain?: No Do you have any abdominal pain?: No Are you experiencing loss of taste or smell?: No Other Medical History Have you received the Flu Vaccine for this season: Yes Have you received the Pneumonia Vaccine: No Review of Systems Review of Systems Review of systems (narrative): Negative *Cardiovascular Comments: Negative *Gastrointestinal Comments: Negative *Genitourinary Comments: Negative *Musculoskeletal Comments: Negative *Neurologic Comments: Negative Meds Home Medications and Allergies Home Medications ?Medication ?Instructions ?Recorded ?Confirmed ?Type gabapentin 300 mg capsule 300 mg PO HS fibromylagia 12/04/17 02/24/25 History zolpidem 10 mg tablet 10 mg PO HS Insomnia 12/04/17 02/24/25 History fluticasone propionate 50 1 - 2 spr intranasal DAILY Allergy 06/22/20 02/24/25 History mcg/actuation nasal symptoms spray,suspension lidocaine 5 % topical patch 1 patch transdermal DAILY 04/16/23 02/24/25 History cetirizine 10 mg tablet (All Day 10 mg PO DAILY PRN allergy 04/21/24 02/24/25 Rx Allergy (cetirizine)) symptoms #30 tabs albuterol sulfate 90 mcg/actuation 1 puff inhalation DAILY soa 11/18/24 02/24/25 History aerosol inhaler famotidine 40 mg tablet 40 mg PO DAILY 11/18/24 02/24/25 History ondansetron 8 mg disintegrating 8 mg PO TID PRN nausea and 11/18/24 02/24/25 Rx tablet vomiting #60 tabs amitriptyline 50 mg tablet 50 mg PO HS MOOD #30 tabs 02/07/25 02/24/25 Rx brexpiprazole 1 mg tablet (Rexulti) 1 mg PO DAILY #30 tabs 02/07/25 02/24/25 Rx buspirone 30 mg tablet 30 mg PO BID #30 tabs 02/07/25 02/24/25 Rx escitalopram oxalate 20 mg tablet 30 mg (1.5 x 20 mg) PO HS 02/07/25 02/24/25 Rx Depression #30 tabs cefdinir 300 mg capsule 300 mg PO BID #20 caps 02/18/25 02/24/25 Rx diclofenac sodium 1 % topical gel 4 g topical QID #50 grams 02/18/25 02/24/25 Rx (Arthritis Pain (diclofenac)) levothyroxine 125 mcg tablet 125 mcg PO DAILY 02/18/25 02/24/25 History montelukast 10 mg tablet 10 mg PO DAILY 02/18/25 02/24/25 History mupirocin 2 % topical ointment 1 applic topical BID #15 grams 02/18/25 02/24/25 Rx (Centany) pantoprazole 40 mg tablet,delayed 40 mg PO DAILY 02/18/25 02/24/25 History release plecanatide 3 mg tablet (Trulance) 3 mg PO DAILY 02/18/25 02/24/25 History promethazine-DM 6.25 mg-15 mg/5 mL 5 ml PO Q4-6H PRN cough #118 mL 02/18/25 02/24/25 Rx oral syrup New Prescriptions to Start Prescriptions: Allergies Allergy/AdvReac Type Severity Reaction Status Date / Time pregabalin (From Lyrica) Allergy Severe Swelling Verified 02/24/25 11:02 of Lip/Tongue/Throat duloxetine (From Cymbalta) Allergy Mild Irritable Verified 02/24/25 11:02 latex Allergy Mild Rash Verified 02/24/25 11:02 sulfamethoxazole (From AdvReac Mild Nausea Verified 02/24/25 11:02 Bactrim) trimethoprim (From Bactrim) AdvReac Mild Nausea Verified 02/24/25 11:02 Exam *Routine HEENT Exam Head: Present normocephalic Eye: Present EOMI and PERRL ENT: Present mucous membranes moist *Routine Neck Exam Neck: Present supple *Routine Respiratory Exam Respiratory: Present CTA bilaterally *Routine Cardiovascular Exam Cardiovascular: Present RRR *Routine Abdominal Exam Abdominal: Present soft and normoactive bowel sounds; Absent tenderness *Routine Rectal Exam Rectal:: deferred *Routine Genitalia Exam Genitalia:: deferred *Routine Extremities Exam Extremities: Absent cyanosis, clubbing or edema *Routine Skin Exam Skin: Present warm; Absent rash *Routine Neurological Exam Neurological: Present alert and oriented X3 Assessment and Plan *Assessment and plan (1) Heartburn: Status: Acute Category: Medical Code(s): R12 - Heartburn (2) GERD (gastroesophageal reflux disease): Status: Acute Category: Medical Code(s): K21.9 - Gastro-esophageal reflux disease without esophagitis (3) Bloating: Status: Acute Category: Medical Code(s): R14.0 - Abdominal distension (gaseous) (4) Nausea: Status: Acute Category: Medical Code(s): R11.0 - Nausea (5) Dysphagia: Status: Acute Category: Medical Code(s): R13.10 - Dysphagia, unspecified (6) Hoarseness: Status: Acute Category: Medical Code(s): R49.0 - Dysphonia Plan A/P: 1. Heartburn, reflux, nausea, bloating and intractable GERD is the preprocedural diagnosis. The patient also has dysphagia which is recurrent. The patient will be anesthetized/sedated using MAC sedation. The patient has been seen and examined. Cardiac and lung assessment prior to the examination is stable. Proceed with planned diagnostic EGD.
[2025-02-23 14:47] VITALS: BMI 40.2
--- NOTE | 2025-02-24 07:00 | P.PCN_ITS ---
[facility] Procedure Note Date: 02/24/25 Time: 12:11 Procedure Note:: Upper Endoscopy Procedure Report: Esophagogastroduodenoscopy with cold biopsies and TTS balloon dilation Endoscopost: Dhiraj Alvarez II, MD Referring Physician: Surinder Rocha MD Date of Procedure: February 24, 2025 Equipment: Olympus GIF-1100 standard upper endoscope Sedation: MAC sedation Indications: Mrs. Chase is a 59-year-old female who is here for diagnostic upper endoscopy. She has had recurrent dysphagia and has had multiple esophageal dilations over the years. This occurs with both solids and liquids and has been going on for over a year. Her last endoscopy was with Dr. Luis Vivas over a year ago. She had a colonoscopy about the same time. The patient does report persistent heartburn, reflux, nausea, frequent clearance of the throat and hoarseness. She is on Protonix twice daily and famotidine nightly. She is getting breakthrough symptoms with significant heartburn and dysphagia with painful swallowing. She has seen ENT and had neck imaging of the thyroid. The patient does report chronic constipation and can go up to a week without a bowel movement she does report dyspepsia and early satiety. The examination is deemed medically necessary for diagnostic EGD. Procedure: Prior to the procedure, a history and physical exam was performed, and patient's medications and allergies were reviewed. The risks, benefits and alternatives of the sedation and procedure were discussed with the patient. All questions were answered and informed consent was obtained. The patient was brought to the procedure room. Patient identification and proposed procedure were verified by the physician and the nurse. The patient was placed in a left lateral decubitus position and the scope was passed under direct vision. Throughout the procedure, the patient's blood pressure, pulse, and oxygen saturations were monitored continuously. The upper GI endoscopy was accomplished without difficulty. The patient tolerated the procedure well. Findings: The scope was passed directly into the upper esophagus and advanced to the third portion of the duodenum. The post bulbar duodenum, ampulla and duodenal bulb were normal with normal mucosa and conniventes. 2 cold biopsies were taken from the second portion of the duodenum for the disaccharidase assay. The scope was withdrawn through a normal duodenal bulb and pylorus into the stomach. There was mild linear antral gastropathy. The body and fundus of the stomach were normal. Upon retroflexion there was a very small sliding 1 to 2 cm hiatal hernia. Cold biopsies were taken from the antrum. The scope was then withdrawn into the esophagus. There was no evidence of reflux esophagitis or Hernández's. There were no rings, strictures, corrugation, webs, furrowing or inlet patch. There were tertiary contractions and evidence of moderate e sophageal dysmotility. The entire esophagus was dilated to 60 Romanian/20 mm with a TTS hydrostatic balloon. There was no resistance. The remainder of the esophageal mucosa was normal. Impression: 1. Nonerosive GERD with moderate esophageal dysmotility and very small sliding hiatal hernia 2. Mild linear reactive gastropathy of antrum Plan: The patient swallowing difficulties are related to functional GERD with esophageal dysmotility. Esophageal dysmotility is from disordered esophageal muscular movements and peristalsis. She is failing acid reduction therapy but would likely respond to promotility therapy and treatment of her constipation. We will discuss treatment options and I will follow-up the biopsies and disaccharidase assay.
[2025-02-24] MEDS: LACTATED RINGERS 1000ML 1,000 ML 50 ML IV (10:59)
[2025-02-24 11:07] VITALS: BP 129/74; PULSE 73; RESP 18; TEMP 36.3; O2SAT 96
--- NOTE | 2025-02-24 11:51 | EXP.ANES.CKL ---
[facility] Disclaimer: The information contained in this section may have been updated after the patient was seen, as this information can be updated by other users. Medical History Deviated nasal tip Sarcoma Thyroid Nodule Cervical lymphadenopathy Hoarseness Hypothyroidism Dysphagia Surgical History History of hysterectomy History of hernia surgery History of bilateral knee replacement Family History Other No significant family history Social History Smoking Status: Never smoker second hand exposure: No alcohol intake: never substance use type: denies use current occupational status: other Travel in the last 8 weeks?: None household members: family housing: house current occupational exposures/hazards: No caffeine: Yes [facility] Anesthesia Checklist Patient Identification Patient Identification: Arm Band Structural Data Admitted From: Home Planned Operative Procedure/s: EGD Consent for Planned Operative Procedure(s) Verified: Yes Verified Documents: Surgical Consent and History and Physical NPO Status Verified Time NPO: 00:00 Additional verifications Anesthesia Reactions: No Airway Assessment Mallampati Score:: Class II C-Spine Mobility Assessed: Yes TMJ Mobility Assessed: Yes Dentition: Good Dentition Neurological Assessment Level of Consciousness: Awake, Alert and Appropriate Anesthesia Plan Anesthesia Risk discussed: Yes Anesthesia Plan: Verified ASA Class: III Anesthesia Type: MAC
[2025-02-24 12:14] VITALS: BP 145/91; PULSE 80; RESP 16; TEMP 36.3; O2SAT 91
[2025-02-24 12:24] VITALS: BP 157/70; PULSE 76; RESP 18; TEMP 36.3; O2SAT 96
[2025-02-24 12:34] VITALS: BP 148/83; PULSE 80; RESP 16; TEMP 36.3; O2SAT 94
[2025-02-24 12:44] VITALS: BP 126/84; PULSE 78; RESP 18; TEMP 36.3; O2SAT 96
[2025-03-01 14:30] LABS: Interpretation Notes (.); Lactase 23.53 (>/= 14.0); Maltase 232.07 (>/= 110.0); Palatinase 15.36 (>/= 8.5); Reference Notes (.); Sucrase 62.75 (>/= 25.0)
== END 2025-02-24 12:44 | disposition home or self-care (01) ==
PROVIDERS: PCP Family Medicine; Visit Provider Internal Medicine Gastroenterology
PROC: 0DJ08ZZ Inspection of Upper Intestinal Tract, Via Natural or Artificial Opening Endoscopic (ICD-10-PCS; CPT 43239; principal; 2025-02-24 12:30)
DX: K21.9 Gastro-esophageal reflux disease without esophagitis (principal); K59.09 Other constipation; K22.4 Dyskinesia of esophagus; K44.9 Diaphragmatic hernia without obstruction or gangrene; K31.89 Other diseases of stomach and duodenum; E03.9 Hypothyroidism, unspecified; Z88.6 Allergy status to analgesic agent; Z88.1 Allergy status to other antibiotic agents; Z88.2 Allergy status to sulfonamides
CPT/HCPCS: 43239; 43249; 82657; C1726; J2003; J2704; J7120

== ENCOUNTER 2025-03-01 18:05 | Emergency (ER) | payer MEDICAID, SELFPAY ==
--- OUTSIDE RECORDS SUMMARY | 2025-02-04 08:30 | XMS_ITS | Encounter Summary ---
[facility] Address [address] [place] [address] Care Team Providers Care Batch Dumper Name Role Phone Surinder Rocha MD Primary Care Provider [phone] Reason for Referral * Physical Therapy (Routine) - Closed Specialty Diagnoses / Procedures Referred By Contac t Referred To Contact Physical Therapy Diagnoses Poor balance Procedures [place] OFFICE/OUTPATIENT NEW MODERATE MDM 45 MINUTES Surinder Rocha MD [address] [place] [address] Phone: tel: fax: [facility] [address] [place] [address] Phone: tel: fax: Referral ID Status Reason Start Date Expiration Date V isits Requested Visits Authorized [id number] Closed Specialty Services Required 02/04/2025 05/06/2026 1 1 Reason for Visit * Reason Comments Foot Injury 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 Encounter Details Date Type Department Care Team (Late st Contact Info) Description 02/04/2025 8:30 AM EDT Office Visit [facility] [address] [place] [address] Surinder Rocha MD [address] [place] [address] Fall in home, initial encounter [...] or training? Not on file Preferred Language Bhutanese 08/18/2023 PHQ-2 Answer Date Recorded Patient Health [...] Description 03/30/2025 8:45 AM EST Office Visit [facility] [address] [facility] [place] [address] Surinder Rocha MD [address] [place] [address] 08/25/2025 8:30 AM EDT [facility] [address] [place] [phone] documented as of this encounter Visit Diagnoses [...] documented as of this encounter Care Teams Batch Dumper Relationship Specialty Start Date End Date Surinder Rocha MD [address] [place] [address] PCP - General Family Medicine 10/05/19 documented as of this encounter
--- OUTSIDE RECORDS SUMMARY | 2025-02-04 09:00 | XMS_ITS | Encounter Summary ---
[facility] [address] [place] [address] Care Team Providers Care Supervisor Printing Shop Name Role Phone Surinder Rocha MD Primary Care Provider [phone] Reason for Referral * Diagnostic Imaging (Routine) - Closed Specialty Diagnoses / Procedures Referred By Contac t Referred To Contact Radiology Diagnoses Right foot pain Left foot pain Procedures XR foot 3+ vw bilateral Surinder Rocha MD [address] [place] [address] Phone: tel: fax: Referral ID Status Reason Start Date Expiration Date Visits Re quested Visits Authorized Closed 02/04/2025 05/06/2026 1 1 Reason for Visit * Diagnostic Imaging (Routine) - Closed Specialty Diagnoses / Procedures Referred By Contac t Referred To Contact Radiology Diagnoses Right foot pain Left foot pain Procedures XR foot 3+ vw bilateral Surinder Rocha MD [address] [place] [address] Phone: tel: fax: Referral ID Status Reason Start Date Expiration Date Visits Re quested Visits Authorized Closed 02/04/2025 05/06/2026 1 1 Encounter Details Date Type Department Care Team (Latest Contact Info) Description 02/04/2025 9:00 AM EDT - 02/04/2025 11:59 PM EDT Hospital Encounter [facility] [address] [place] [address] Surinder Rocha MD [address] [place] [address] Right foot pain; Left foot [...] or training? Not on file Preferred Language Vatican Citizen 08/18/2023 PHQ-2 Answer Date Recorded Patient Health [...] Description 03/30/2025 8:45 AM EST Office Visit [facility] [address] [place] [address] Surinder Rocha MD [address] [place] [address] 08/25/2025 8:30 AM EDT Appointment [place] [phone] documented as of this encounter Procedures Procedure Name Priority Date/Time Associated Diagnosis Comments XR FOOT 3+ VW BILATERAL Routine 02/04/2025 9:23 AM EDT Right foot pain Left foot pain documented in this encounter Results * XR Foot 3+ View Bilateral (02/04/2025 9:23 AM EDT) Anatomical Region Laterality Modality Lower Extremities, Foot Bilateral [facility] 02/09/2025 11:2 6 AM EDT Impressions 02/09/2025 11:30 AM EDT Impression: 1. No acute osseous findings. 2. No signs of crystalline or inflammatory arthropathy. 3. 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 4. Achilles and plantar spurs bilaterally. Electronically Signed: Oscar Hare MD 02/09/2025 11:30 AM EDT Workstation ID: [id number] Narrative 02/09/2025 11:30 AM EDT XR FOOT [...] Achilles and plantar spurs bilaterally. Electronically Signed: Osacr Hare MD 02/09/2025 11:30 AM EDT Workstation ID: [id number] us Surinder Rocha MD IMG DIAGNOSTIC IMAGING ORDERABL ES Final Result documented in this encounter Visit Diagnoses Diagnosis Right foot pain Pain in soft tissues of limb Left foot pain Pain in soft tissues of limb documented in this encounter Additional Health Concerns Assessment Noted Time PHQ-2 Depression Total Score: 1 05/20/19 24 12:36 PM EST documented as of this encounter Care Teams Supervisor Printing Shop Relationship Specialty Start Date End Date Surinder Rocha MD [address] [place] [address] PCP - General Family Medicine 10/05/19 documented as of this encounter
--- OUTSIDE RECORDS SUMMARY | 2025-02-08 07:55 | XMS_ITS | Encounter Summary ---
[facility] Address [address] [place] [address] Care Team Providers Care Girls Swimming Coach Name Role Phone Surinder Rocha MD Primary Care Provider [phone] Reason for Referral * Diagnostic Imaging (Routine) - Closed Specialty Diagnoses / Procedures Referred By Ezio harden Referred To Contact Radiology Diagnoses Abnormal mammogram Procedures Mammo Diagnostic Digital Tomosynthesis Bilateral With CAD Surinder Rocha MD [address] [place] [address] Phone: tel: fax: [facility] [address] [place] [address] Phone: tel: Referral ID Status Reason Start Date Expiration Date Visits Re quested Visits Authorized [id number] Closed 11/26/2024 02/25/2026 1 1 Reason for Visit * Diagnostic Imaging (Routine) - Closed Specialty Diagnoses / Procedures Referred By Contlen t Referred To Contact Radiology Diagnoses Abnormal mammogram Procedures Mammo Diagnostic Digital Tomosynthesis Bilateral With CAD Surinder Rocha MD [address] [place] [address] Phone: tel: fax: [facility] [place] [address] Phone: tel: Referral ID Status Reason Start Date Expiration Date Visits Re quested Visits Authorized [id number] Closed 11/26/2024 02/25/2026 1 1 Encounter Details Date Type Department Care Team (Latest Contact Info) Description 02/08/2025 7:55 AM EDT - 02/08/2025 11:59 PM EDT Hospital Encounter [facility] [place] [address] [place] [address] Abnormal mammogram Discharge Disposition: Home [...] or training? Not on file Preferred Language Sao Tomean 08/18/2023 PHQ-2 Answer Date Recorded Patient Health [...] night at bedtime. 90 tablet 1 11/15/2024 Fluticasone-Salmete rol (ADVAIR/WIXELA) 100-50 MCG/ACT DISKUSIndications:M oderate persistent asthma with exacerbation INHALE 1 PUFF BY MOUTH TWICE DAILY 60 each 02/08/2025 furosemide (Lasix) 40 MG tabletIndications:B ilateral lower [...] provider Daily. 11 g 5 11/16/2024 5 montelukast (SINGULAIR) 10 MG tabletIndications:M oderate [...] Description 03/30/2025 8:45 AM EST Office Visit [facility] [address] [facility] [place] [address] Surinder Rocha MD [address] [facility] [address] [place], [place] [id number] 08/25/2025 8:30 AM EDT Appointment [facility] [address] [place] [id number] documented as of this encounter Procedures Procedure [...] documented as of this encounter Care Teams Girls Swimming Coach Relationship Specialty Start Date End Date Surinder Rocha MD [address] [place] [address] PCP - General Family Medicine 6/2/20 documented as of this encounter
--- OUTSIDE RECORDS SUMMARY | 2025-02-08 10:51 | XMS_ITS | Encounter Summary ---
[facility] Address [address] [place] [address] Care Team Providers Care Machine Tech Name Role Phone Surinder Rocha MD Primary Care Provider [phone] Reason for Referral * Diagnostic Imaging (Routine) - Closed Specialty Diagnoses / Procedures Referred By Ezio t Referred To Contact Radiology Diagnoses Abnormal mammogram Procedures US Breast Bilateral Limited Surinder Rocha MD [address] [place] [address] Phone: tel: fax: [facility] [address] [place] [address] Phone: tel: Referral ID Status Reason Start Date Expiration Date Visits Re quested Visits Authorized [id number] Closed 02/08/2025 05/10/2026 1 1 Reason for Visit * Diagnostic Imaging (Routine) - Closed Specialty Diagnoses / Procedures Referred By Contac t Referred To Contact Radiology Diagnoses Abnormal mammogram Procedures US Breast Bilateral Limited Surinder Rocha MD [address] [place] [address] Phone: tel: fax: [facility] [place] [address] Phone: tel: Referral ID Status Reason Start Date Expiration Date Visits Re quested Visits Authorized [id number] Closed 02/08/2025 05/10/2026 1 1 Encounter Details Date Type Department Care Team (Latest Contact Info) Description 02/08/2025 10:51 AM EDT - 02/08/2025 11:59 PM EDT Hospital Encounter [facility] [place] [address] [place] [address] Abnormal mammogram Discharge Disposition: Home [...] or training? Not on file Preferred Language Jordanian 08/18/2023 PHQ-2 Answer Date Recorded Patient Health [...] Description 03/30/2025 8:45 AM EST Office Visit [facility] [address] [facility] [place] [address] Surinder Rocha MD [address] [place] [address] 08/25/2025 8:30 AM EDT Appointment [facility] [address] [place] [address] [phone] documented as of this encounter Procedures Procedure [...] measuring 0.4 cm. us Nallely Handley MD [facility] US ORDERABLES Final Result documented in this encounter Visit Diagnoses Diagnosis Abnormal mammogram Abnormal mammogram, unspecified documented in this encounter Additional Health Concerns Assessment Noted Time PHQ-2 Depression Total Score: 1 05/20/19 24 12:36 PM EST documented as of this encounter Care Teams Machine Tech Relationship Specialty Start Date End Date Surinder Rocha MD [address] [place] [address] PCP - General Family Medicine 10/05/19 documented as of this encounter
--- OUTSIDE RECORDS SUMMARY | 2025-02-22 10:45 | XMS_ITS | Encounter Summary ---
[facility] [address] [place] [address] Care Team Providers Care Biological Aide Name Role Phone Surinder Rocha MD Primary Care Provider [phone] Reason for Visit * Reason Comments URI X 1 wk Urinary Tract Infection X 4 days ago Shortness of Breath Encounter Details Date Type Department Care Team (Late st Contact Info) Description 02/22/2025 10:45 AM EDT Office Visit [facility] [address] [place] [address] Surinder Rocha MD [address] [place], [place] [id number] Dysuria (Primary Dx); Acute non-recurrent maxillary sinusitis; [...] or training? 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 documented in this encounter Plan of Treatment Upcoming Encounters Date Type Department Care Team (Late st Contact Info) Description 03/30/2025 8:45 AM EST Office Visit [facility] [address] [place] [address] Surinder Rocha MD [address] [place] [address] 08/25/2025 8:30 AM EDT Appointment [facility] [address] [id number] documented as of this encounter Procedures Procedure [...] 02/24/2025 3:07 AM EDT Performed at: - [facility] [address] [place], [place] [id number] Gasket Maker: Vernon Garcia PhD, Phone: [phone] Surinder Rocha MD MICROBIOLOGY - GENERAL ORDERABL ES Final Result Performing Organization Address [facility]/ZIP Co de Phone Number [facility] [address] [place] [address], [place] [phone] [facility] [address] [place] [address], [place] [phone] * POCT urinalysis dipstick, automated (02/22/2025 10:42 AM EDT) Color Yellow Yellow, Straw, Dark Yellow, Kaila [facility] Clarity, UA Clear Clear [facility] Specific [place] 1.010 1.005 - 1.030 [facility] pH, Urine 6.0 5.0 - 8.0 [facility] Leukocytes Negative Negative [facility] Nitrite, UA Negative Negative [facility] Protein, POC Negative Negative mg/dL [facility] Glucose, UA Negative Negative mg/dL [facility] Ketones, UA Negative Negative [facility] Urobilinogen, UA Normal Normal, 0.2 E.U./dL [facility] Bilirubin Negative Negative [facility] Blood, UA Negative Negative [facility] Lot Number [id number] [facility] Expiration Date 05-27-2026 [facility] Urine 02/22/2025 10:4 2 AM EDT Surinder Rocha MD POINT OF CARE TEST ORDERABLES F inal Result [facility]
[address] [place] [address], documented in this encounter Visit Diagnoses Diagnosis Dysuria- Primary Acute non-recurrent maxillary sinusitis Seasonal allergic rhinitis, unspecified trigger Moderate persistent asthma with exacerbation Unspecified asthma, with exacerbation documented in this encounter Additional Health Concerns Assessment Noted Time PHQ-2 Depression Total Score: 1 05/20/19 24 12:36 PM EST documented as of this encounter Care Teams Biological Aide Relationship Specialty Start Date End Date Surinder Rocha MD [address] [address] [place], [place] [id number] PCP - General Family Medicine 10/05/19 documented as of this encounter
--- OUTSIDE RECORDS SUMMARY | 2025-02-23 09:21 | XMS_ITS | Encounter Summary ---
[facility] Organization [facility] Address [address] [place] [address] Care Team Providers Care Milk Hauler Name Role Phone Surinder Rocha MD Primary Care Provider [phone] Reason for Visit * Diagnostic Imaging (Routine) - Pending Review Specialty Diagnoses / Procedures Referred By Contac t Referred To Contact Radiology Diagnoses Abnormal mammogram Procedures US Fine Needle Aspiration BX 1st Lesion US Fine Needle Aspiration BX 1ST Lesion Surinder Rocha MD [address] [facility] [place] [address] Phone: tel: fax: [facility] [address] [place] [address] Phone: tel: Referral ID Status Reason Start Date Expiration Date V isits Requested Visits Authorized [id number] Pending Review 02/08/2025 05/10/2026 1 1 Encounter Details Date Type Department Care Team (Latest Contact Info) Description 02/23/2025 9:21 AM EDT - 02/23/2025 11:59 PM EDT Hospital Encounter [facility] [address]60 [facility] [address] [place] [address] Abnormal mammogram Discharge Disposition: Home [...] or training? Not on file Preferred Language Mauritanian 08/18/2023 PHQ-2 Answer Date Recorded Patient Health [...] Description 03/30/2025 8:45 AM EST Office Visit [facility] [address] [place] [address] Surinder Rocha MD [address] [place] [address] 08/25/2025 8:30 AM EDT Appointment [facility] [address] [place] [address] [place] [phone] documented as of this encounter Procedures Procedure Name Priority Date/Time Associated Diagnosis Comments US FINE NEEDLE ASPIRATION BX 1ST LESION Routine 02/23/2025 11:04 AM EDT Abnormal mammogram NON-BOMBSIGHT SPECIALIST CYTOLOGY, [facility] (PETRA, COR, MAD, MAAME) [...] MD on us Nallely Handley MD [facility] [place]LES Final Result * NON-BOMBSIGHT SPECIALIST CYTOLOGY, [facility] (PETRA,COR,MAD,MAAME) (02/23/2025 10:43 AM [...] CD19, CD20, CD38, CD45, CD56, CD57, CD123, [place], and Lambda. Interpretation performed by Dr. Lin. [...] Result [facility]
[address] [place] [address], documented in this encounter Visit Diagnoses Diagnosis [...] documented as of this encounter Care Teams Milk Hauler Relationship Specialty Start Date End Date Surinder Rocha MD [facility] [place] [address] PCP - General Family Medicine 10/05/19 documented as of this encounter
--- OUTSIDE RECORDS SUMMARY | 2025-02-23 09:26 | XMS_ITS | Encounter Summary ---
[facility] Address [address] [place] [address] Care Team Providers Care Director Social Welfare Name Role Phone Surinder Rocha MD Primary Care Provider [phone] Reason for Referral * Diagnostic Imaging (Routine) - Pending Review Specialty Diagnoses / Procedures Referred By Contac t Referred To Contact Radiology Diagnoses Abnormal mammogram Procedures Mammo Post Device Placement Right Nallely Handley MD [address] [place] [address] Phone: tel: fax: Referral ID Status Reason Start Date Expiration Date V isits Requested Visits Authorized [id number] Pending Review 02/23/2025 05/25/2026 1 1 Reason for Visit * Diagnostic Imaging (Routine) - Pending Review Specialty Diagnoses / Procedures Referred By Contlen harden Referred To Contact Radiology Diagnoses Abnormal mammogram Procedures Mammo Post Device Placement Right Nallely Handley MD [address] [address] Phone: tel: fax: Referral ID Status Reason Start Date Expiration Date V isits Requested Visits Authorized [id number] Pending Review 02/23/2025 05/25/2026 1 1 Encounter Details Date Type Department Care Team (Latest Contact Info) Description 02/23/2025 9:26 AM EDT - 02/23/2025 11:59 PM EDT Hospital Encounter [facility] [address] [place] [address] Abnormal mammogram Discharge Disposition: Home or Self [...] or training? Not on file Preferred Language Guatemalan 08/18/2023 PHQ-2 Answer Date Recorded Patient Health [...] Description 03/30/2025 8:45 AM EST Office Visit [facility] [address] [place] [address] Surinder Rocha MD [address] [place] [address] 08/25/2025 8:30 AM EDT Appointment [facility] [address] [address] documented as of this encounter Procedures Procedure [...] as of this encounter Care Teams Director Social Welfare Relationship Specialty Start Date End Date Surinder Rocha MD [address] [place] [address] PCP - General Family Medicine 10/05/19 documented as of this encounter
[2025-03-01] VITALS (21 sets, daily range): BP systolic 102–141; BP diastolic 60–94; PULSE 67–93; RESP 13–20; TEMP 36.9; O2SAT 93–98; BMI 40.2
--- NOTE | 2025-03-01 18:09 | ECG_ITS ---
APPROVED REPORT Exam: Resting ECG HR:90 bpm ECG Measurements Heart Rate 90 AXES MS 163 P 24 QRSd 91 QRS 23 QT 366 T 61 QTc 414 Conclusion SINUS RHYTHM INDETERMINATE AXIS LOW QRS VOLTAGE IN PRECORDIAL LEADS [QRS DEFLECTION < 1.0 mV IN CHEST LEADS] INCOMPLETE RIGHT BUNDLE BRANCH BLOCK [90+ ms QRS DURATION, TERMINAL R IN V1/V2, 40+ ms S IN I/aVL/V4/V5/V6] BORDERLINE ECG UNCONFIRMED REPORT Electronically signed by : Shar Troy, 03/01/2025 22:52:55
--- OUTSIDE RECORDS SUMMARY | 2025-03-01 18:19 | XMS_ITS | Encounter Summary ---
Author Organization [facility] Address [address] [place] [address] Care Team Providers Care Retail Center Receptionist Name Role Phone Surinder Rocha MD Primary Care Provider [phone] Encounter Details Date Type Department Care Team (Late st Contact Info) Description 02/25/2025 Telephone [facility] [address] [address] Rosalba Irizarry RN Social History Tobacco Use Types Packs/Day Years [...] or training? Not on file Preferred Language Congolese 08/18/2023 PHQ-2 Answer Date Recorded Patient Health Questionnaire-2 Score 1 09/08/2024 Comments No Sex and Gender Information Value Date Recorded Sex Assigned at Female 11/13/2023 11:14 AM EDT Legal Sex Female 1:16 PM EDT Gender Identity Female 11/13/2023 11:14 AM EDT Sexual Orientation Straight 11/13/2023 11 :14 AM EDT documented as of this encounter Miscellaneous Notes * Telephone Encounter - Rosalba Irizarry RN - 02/25/2025 10:19 AM EDT Patient notified of pathology results and recommendation. Verbalizes understanding. States having some discomfort, using analgesics with relief. Denies signs and symptoms of infection. Questions answered, support given, verbalized understanding. Patient transferred to [facility] scheduling per request to warren clarke recommended follow-up documented in this encounter Plan of Treatment Upcoming Encounters Date Type Department Care Team (Late st Contact Info) Description 03/30/2025 8:45 AM EST Office Visit [facility] [address] [place] [address] Surinder Rocha MD [address] [place], [place] [id number] 08/25/2025 8:30 AM EDT [address] [address] documented as of this encounter Visit Diagnoses Not on filedocumented in this encounter Additional Health Concerns Assessment Noted Time PHQ-2 Depression Total Score: 1 05/20/19 24 12:36 PM EST documented as of this encounter Care Teams Retail Center Receptionist Relationship Specialty Start Date End Date Surinder Rocha MD [address] [place] [address] PCP - General Family Medicine 10/05/19 documented as of this encounter
--- OUTSIDE RECORDS SUMMARY | 2025-03-01 18:19 | XMS_ITS | Encounter Summary ---
Author Organization [facility] Address [address] [place] [address] Care Team Providers Care Quality Control Lead Name Role Phone Surinder Rocha MD Primary Care Provider [phone] Encounter Details Date Type Department Care Team (Late st Contact Info) Description 02/24/2025 Telephone [facility] [address] [address] Rosalba Irizarry RN Social History Tobacco Use [...] or training? Not on file Preferred Language Croatian 08/18/2023 PHQ-2 Answer Date Recorded Patient Health [...] Telephone Encounter - Rosalba Irizarry RN - 02/24/2025 2:31 PM EDT Attempted to notify patient of results and recommendation for follow up. A message was left on her voicemail to return my call. documented in this encounter Plan of Treatment Upcoming Encounters Date Type Department Care Team (Late st Contact Info) Description 03/30/2025 8:45 AM EST Office Visit [facility] FAMILY MEDICINE [address] [place] [address] Surinder Rocha MD [address] [place] [address] 08/25/2025 8:30 AM EDT Appointment [place] [address] [address] documented as of this encounter Visit Diagnoses Not on filedocumented in this encounter Additional Health Concerns Assessment Noted Time PHQ-2 Depression Total Score: 1 05/20/19 24 12:36 PM EST documented as of this encounter Care Teams Quality Control Lead Relationship Specialty Start Date End Date Surinder Rocha MD [address] [place] [address] PCP - General Family Medicine 10/05/19 documented as of this encounter
--- OUTSIDE RECORDS SUMMARY | 2025-03-01 18:19 | XMS_ITS | Encounter Summary ---
Author Organization [facility] Address [address] [place] [address] Care Team Providers Care Toolroom Clerk Name Role Phone Surinder Rocha MD Primary Care Provider [phone] Reason for Visit * Reason Comments Med Refill Encounter Details Date Type Department Care Team (Late st Contact Info) Description 02/22/2025 Refill [facility]INE [address] [place] [address] Jeanette Hooks, MAXX [address] [place] [address] Moderate persistent asthma with exacerbation Social History [...] Description 03/30/2025 8:45 AM EST Office Visit [facility] [address] [facility] [place] [address] Surinder Rocha MD [address] [place] [address] 08/25/2025 8:30 AM EDT Appointment [place] [id number] documented as of this encounter Visit Diagnoses Diagnosis Moderate persistent asthma with exacerbation Unspecified asthma, with exacerbation documented in this encounter Additional Health Concerns Assessment Noted Time PHQ-2 Depression Total Score: 1 05/20/19 24 12:36 PM EST documented as of this encounter Care Teams Toolroom Clerk Relationship Specialty Start Date End Date Surinder Rocha MD [address] [place] [address] PCP - General Family Medicine 10/05/19 documented as of this encounter
--- OUTSIDE RECORDS SUMMARY | 2025-03-01 18:19 | XMS_ITS | Encounter Summary ---
[facility] Address [address] [place] [address] Care Team Providers Care Legal Executive Assistant Name Role Phone Surinder Smiley MD Primary Care Provider [phone] Reason for Visit * Reason Onset Date Comments Med Management 02/24/2025 Encounter Details Date Type Department Care Team (Late st Contact Info) Description 02/24/2025 Telephone [facility] [address] [place] [address] Surinder Smiley MD [address] [place], [place] [id number] Med Management Social History Tobacco Use Types Packs/Day Years [...] or training? Not on file Preferred Language Australian 08/18/2023 PHQ-2 Answer Date Recorded Patient Health Questionnaire-2 Score 1 09/08/2024 Comments No Sex and Gender Information Value Date Recorded Sex Assigned at Female 11/13/2023 11:14 AM EDT Legal Sex Female 1:16 PM EDT Gender Identity Female 11/13/2023 11:14 AM EDT Sexual Orientation Straight 11/13/2023 11 :14 AM EDT documented as of this encounter Miscellaneous Notes * Telephone Encounter - Surinder Smiley MD - 02/24/2025 9:11 PM EDT Phenergan sent in She could use GoodRx for the zofran, this makes it about 20 or less! * Telephone Encounter - Irena Metcalf RegSched Rep - 02/24/2025 2:33 PM EDT Provider: DR SMILEY Caller: Cielo Chase Relationship to Patient: Self [facility] Reason for Call: ONDANSETRON IS NOT COVERED BY THE PATIENT'S INSURANCE AND SHE WOULD LIKE TO KNOW IF THERE IS ANOTHER MEDICATION THAT CAN BE PRESCRIBED THAT HER INSURANCE WILL COVER. documented in this encounter Plan of Treatment Upcoming Encounters Date Type Department Care Team (Late st Contact Info) Description 03/30/2025 8:45 AM EST Office Visit [facility] [address] [place] [address] Surinder Smiley MD [address] [place], [place] [address] 08/25/2025 8:30 AM EDT Appointment [address] [address] documented as of this encounter Visit Diagnoses Not on filedocumented in this encounter Additional Health Concerns Assessment Noted Time PHQ-2 Depression Total Score: 1 05/20/19 24 12:36 PM EST documented as of this encounter Care Teams Legal Executive Assistant Relationship Specialty Start Date End Date Surinder Smiley MD [address] [place] [address] PCP - General Family Medicine 10/05/19 documented as of this encounter
--- OUTSIDE RECORDS SUMMARY | 2025-03-01 18:19 | XMS_ITS | Encounter Summary ---
[facility] Address [address] [place] [address] Care Team Providers Care Tie Buyer Name Role Phone Surinder Rocha MD Primary Care Provider [phone] Encounter Details Date Type Department Care Team (Latest Contact Info) Description 02/22/2025 Travel Social History Tobacco Use Types Packs/Day [...] or training? Not on file Preferred Language Turks [place] Ca[place] Islander 08/18/2023 PHQ-2 Answer Date Recorded Patient Health [...] [facility] [address] [place] [address] Surinder Rocha MD [address] [place] [address] 08/25/2025 8:30 AM EDT Appointment [place] [id number] documented as of this encounter Visit Diagnoses Not on filedocumented in this encounter Additional Health Concerns Assessment Noted Time PHQ-2 Depression Total Score: 1 05/20/19 24 12:36 PM EST documented as of this encounter Care Teams Tie Buyer Relationship Specialty Start Date End Date Surinder Rocha MD [address] [place] [address] PCP - General Family Medicine 10/05/19 documented as of this encounter
--- OUTSIDE RECORDS SUMMARY | 2025-03-01 18:20 | XMS_ITS | Encounter Summary ---
Author Organization [facility] yste Address [address] [place] [address] Care Team Providers Care Paint Tinter Name Role Phone Surinder Rocha MD Primary Care Provider [phone] Encounter Details Date Type Department Care Team (Late st Contact Info) Description 02/15/2025 Results Follow-Up [facility] CANCER RISK ASSESSMENT [address] [place] [address] Ca Levy Social History Tobacco Use Types Packs/Day Years [...] or training? Not on file Preferred Language Chadian 08/18/2023 PHQ-2 Answer Date Recorded Patient Health Questionnaire-2 Score 1 09/08/2024 Comments No Sex and Gender Information Value Date Recorded Sex Assigned at Female 11/13/2023 11:14 AM EDT Legal Sex Female 1:16 PM EDT Gender Identity Female 11/13/2023 11:14 AM EDT Sexual Orientation Straight 11/13/2023 11 :14 AM EDT documented as of this encounter Progress Notes * Ca Levy - 02/15/2025 10:19 AM EDT This patient recently completed the CARE risk assessment for a mammogram appointment. Based on the patient's responses, NCCN criteria for genetic testing was met. At the time of the assessment, the patient was provided with both written and video educational materials regarding genetic testing. Navigator follow-up: I spoke with the patient and updated her 2023 CARE assessment. I discussed the option of hereditarycancer genetic testing with the patient including outlining the next steps to proceed with testing,the insurance process, and potential testing outcomes. The patient would like to explore financial assistance options prior to deciding to proceed with testing. I will send her a link to complete theonline application. She will call me if she would like genetic testing. documented in this encounter Plan of Treatment Upcoming Encounters Date Type Department Care Team (Late st Contact Info) Description 03/30/2025 8:45 AM EST Office Visit [facility]IC[facility] [address] [phone] Surinder Rocha MD [address] [address] 08/25/2025 8:30 AM EDT Appointment [facility] [address] [place] [id number] documented as of this encounter Visit Diagnoses Not on filedocumented in this encounter Additional Health Concerns Assessment Noted Time PHQ-2 Depression Total Score: 1 05/20/19 24 12:36 PM EST documented as of this encounter Care Teams Paint Tinter Relationship Specialty Start Date End Date Surinder Rocha MD [address] [place] [address] PCP - General Family Medicine 10/05/19 documented as of this encounter
--- OUTSIDE RECORDS SUMMARY | 2025-03-01 18:20 | XMS_ITS | Encounter Summary ---
Author Organization [facility] Address [address] [place] [address] Care Team Providers Care E Commerce Developer Name Role Phone Surinder Rocha MD Primary Care Provider [phone] Reason for Visit * Reason Comments Med Refill Encounter Details Date Type Department Care Team (Late st Contact Info) Description 02/07/2025 Refill [facility] [address] [place] [address] Jeanette Hooks, MAXX [address] [place], [place] [phone] Moderate persistent asthma with exacerbation; Acquired hypothyroidism Social History Tobacco Use Types Packs/Day Years [...] or training? Not on file Preferred Language Zimbabwean 08/18/2023 PHQ-2 Answer Date Recorded Patient Health [...] Description 03/30/2025 8:45 AM EST Office Visit [facility] [address] [place] [address] Surinder Rocha MD [address] [place] [address] 08/25/2025 8:30 AM EDT Appointment [place] [id number] documented as of this encounter Visit Diagnoses Diagnosis Moderate persistent asthma with exacerbation Unspecified asthma, with exacerbation Acquired hypothyroidism Unspecified hypothyroidism documented in this encounter Additional Health Concerns Assessment Noted Time PHQ-2 Depression Total Score: 1 05/20/19 24 12:36 PM EST documented as of this encounter Care Teams E Commerce Developer Relationship Specialty Start Date End Date Surinder Rocha MD [address] [place] [address] PCP - General Family Medicine 10/05/19 documented as of this encounter
--- OUTSIDE RECORDS SUMMARY | 2025-03-01 18:20 | XMS_ITS | Encounter Summary ---
[facility] Address [address] [place] [address] Care Team Providers Care Industrial Retrofit Designer Name Role Phone Surinder Rocha MD Primary Care Provider [phone] Reason for Visit * Reason Onset Date Comments New Med Request 02/25/2025 Encounter Details Date Type Department Care Team (Late st Contact Info) Description 02/25/2025 Telephone [facility] [address] [place] [address] Surinder Rocha MD [address] [place], [place] [phone] New Med Request Social History Tobacco Use Types Packs/Day Years [...] or training? Not on file Preferred Language Central African 08/18/2023 PHQ-2 Answer Date Recorded Patient Health [...] Telephone Encounter - Surinder Rocha MD - 03/01/2025 7:23 AM EDT Will try omnicef liquid instead. New script sent in * Telephone Encounter - Jayne Cuellar RegSched Rep - 02/28/2025 9:02 AM EDT PATIENT IS CALLING TO CHECK ON THIS. -HUB * Telephone Encounter - Brie Kebede RegSched Rep - 02/25/2025 3:25 PM EDT Caller: Cielo Chase Relationship: Self Best call back number: Telephone Information: What medication are you requesting: ALTERNATIVE TO amoxicillin-clavulanate (Augmentin ES-600) 600-42.9 MG/5ML suspension If a prescription is needed, what is your preferred pharmacy and phone number: [facility] [phone] [facility] - [address] [phone] [facility] [phone] Additional notes: PATIENT WAS PRESCRIBED THIS ANTIBIOTIC A LIQUID FORM, BUT IT IS VERY HARD ON HER STOMACH. PATIENT IS WANTING TO KNOW IF A PILL FORM CAN BE CALLED IN INSTEAD documented in this encounter Plan of Treatment Upcoming Encounters Date Type Department Care Team (Late st Contact Info) Description 03/30/2025 8:45 AM EST Office Visit [facility]IC[facility] [address] [place] [address] Surinder Rocha MD [address] [place] [address] 08/25/2025 8:30 AM EDT Appointment [place] [id number] documented as of this encounter Visit Diagnoses Not on filedocumented in this encounter Additional Health Concerns Assessment Noted Time PHQ-2 Depression Total Score: 1 05/20/19 24 12:36 PM EST documented as of this encounter Care Teams Industrial Retrofit Designer Relationship Specialty Start Date End Date Surinder Rocha MD [address] [place] [address] PCP - General Family Medicine 10/05/19 documented as of this encounter
--- OUTSIDE RECORDS SUMMARY | 2025-03-01 18:20 | XMS_ITS | Data Portability ---
Author Organization [place] - [facility] & [facility] AD[facility] Address [address] [place] [address] Care Team Providers Care Adjuster Piano Action Name Role Phone DAVID ROCHA Primary Care Provider [phone] Assessment Encounter Date Assessment Date Assessment LastModified by Organization Details LastModified Time 02/05/2023 02/05/2023 Mrs. Crowder was referred by Dr. Rocha for management of her chronic neck/BUE pain. The patient initially came to [facility] for management of neck/BUE pain which was treated with a CEI in 01/2022. She reports significant pain relief of greater than 80% for 7-8 months before the pain returned. She presents today to follow up post 2nd bilateral diagnostic SI joint injection. She experienced significant improvement in pain and function of greater than 80% for more than 6 hours before the pain returned. Since the patient received significant benefit following the first injection, I will proceed with scheduling a therapeutic bilateral SI Joint injection for fdc relief I had a detailed discussion with the patient regarding the procedure and the risks/benefits and addressed any questions/concern s at today's visit. I previously reviewed the lumbar x ray today which reveals slight retrolisthesis of L2 on L3 and L3 on L4. There is loss of disc space at L5-S1. There are degenerative facets noted, as well as mild to moderate spondylosis. The patient's pelvic x ray reveals mild degenerative changes. The patient has participated in PT several years ago which was helpful for her pain, but became too expensive for her to continue. She continues at home exercises/stretch es with minimal relief. Regarding her cervical pain, she complains of neck pain with radiation into the BUE with numbness/tingling . She had CEI 01/24 and the pain has returned and is worse with radiating into her skull that causes frequent headaches, negatively impacting her daily function. Based on history and physical exam, I believe this pain is associated with cervical DDD, and occipital neuritis. She had prior bilateral occipital nerve block of the greater/lesser nerves on 12/24/22 with minimal relief. She continues to complain of radiating neck pain into her skull and bilateral upper extremities. Cervical MRI was ordered at prior visit, but the patient has not had a call to schedule. I will address this with staff and see where this stands. She will f/up post SI injections - Schedule bilateral tx SI injection - f/up post injection - f/up on cervical MRI scheduling --- I have discussed in great detail our potential treatment options which would include a rehabilitative approach to care. This program would include medication management, Physical Therapy, consideration for interventional procedures as appropriate, and lifestyle modification (diet, weight loss, exercise, smoking/tobacco cessation, holistic approach including meditation and yoga). The patient understands and agrees prior to proceeding with this plan. _ __ __ __ __ __ __ __ __ __ __ __ __ __ __ __ __ __ __ __ __ __ __ __ __ __ __ __ _ RECORDS REVIEW: As per clinic policy, we will have the patient sign a release to obtain previous imaging and clinical notes. PROCEDURE: I counseled the patient extensively and informed of the risks of the procedure, including the risk of paralysis, nerve damage, respiratory arrest, arrhythmias, stroke, weakness, and infection, which although very low, could result in or disability. The patient acknowledged to me that they understand and accept these risks. RN EDUCATION Extensive coordination of care provided by RN to educate patient on upcoming procedure and to coordinate obtaining extensive incoming medical records. _ __ __ __ __ __ __ __ __ __ __ __ __ __ __ __ __ __ __ __ __ __ __ __ __ __ __ __ _ PSYCH: Pain affecting Neuro-psych behavior was discussed. Discussed about pain psychological counseling as a part of the multimodal approach to pain treatment. _ __ __ __ __ __ __ __ __ __ __ __ __ __ __ __ __ __ __ __ __ __ __ __ __ __ __ __ _ REHABILITATION: Discussed with the patient the importance of diet, daily physical activity and PT. Discussed with the patient the need to be scheduled for physical therapy since physical therapy will prolong the benefits of the procedure and interventions. _ __ __ __ __ __ __ __ __ __ __ __ __ __ __ __ __ __ __ __ __ __ __ __ __ __ __ __ _ CORINA: [id number] I have reviewed patient's CORINA report prior to prescribing Schedule II, III, and IV medications that require review by law. julia Not available 02/06/2023 13:29:09 03/12/2023 03/12/2023 57-year-old female with: 1) Abdominal pain: Potentially multifactorial with co-concurrent gastroparesis, chronic constipation, and potential adhesions from prior abdominal surgeries. I have scheduled a repeat EGD and colonoscopy as well as ordered an UGI series with SBFT and other workup/recommenda tions as outlined below. 2) Gastroparesis: I suspect this is causing her reflux issues to be worse. I have recommended she follow-up with [facility] for possible gastric stimulator placement. She states she would only consider this as a last resort. -Counseled consuming small meals, allowing atleast 3 hours between meals, and not eating meals within 3 hours of bedtime. 3) Acid reflux: Complicated by #2. Continue Pepcid and Pantoprazole. She may not be a candidate for anti reflux surgery due to gastroparesis. 4) Dysphagia: EGD scheduled. 5) Chronic constipation: Linzess ineffective. Trulance was not covered by her insurance. Motegrity appears expensive for her to obtain. I have filled out a patient financial assistance for through [employer] for possible assistance for Motegrity, which included a written prescription from me for Motegrity 2mg p.o. once daily. This may also be beneficial from the standpoint of her gastroparesis. [email or web address] Not available 03/12/2023 11:06:53 03/13/2023 03/13/2023 Mrs. Crowder was referred by Dr. Rocha for management of her chronic neck/BUE pain. The patient initially came to [facility] for management of neck/BUE pain which was treated with a CEI in 01/2022. She reports significant pain relief of greater than 80% for 7-8 months before the pain returned. patient has done physical therapy in the past and continues to perform at home exercises and stretches. Patient presents today 2 weeks status post bilateral therapeutic SI joint injection. She reports greater than 80% improved pain and function since the injection. She is able to stand and walk for longer periods of time with less pain. Patient continues to complain of neck pain and bilateral upper extremity pain. She has a cervical MRI scheduled on March 17, 2023. She has had prior cervical epidural in January of 2022 with greater than 80% relief for 7-8 months. Pain today is 6/10, mainly neck pain. She complains of neck pain with radiation into the BUE with numbness/tingling . She had CEI 01/24 and the pain has returned and is worse with radiating into her skull that causes frequent headaches, negatively impacting her daily function. Based on history and physical exam, I believe this pain is associated with cervical DDD, and occipital neuritis. I previously reviewed the lumbar x ray today which reveals slight retrolisthesis of L2 on L3 and L3 on L4. There is loss of disc space at L5-S1. There are degenerative facets noted, as well as mild to moderate spondylosis. The patient's pelvic x ray reveals mild degenerative changes. Patient will return in 1-2 weeks following her cervical MRI to discuss possible repeat cervical epidural Injection. --- I have discussed in great detail our potential treatment options which would include a rehabilitative approach to care. This program would include medication management, Physical Therapy, consideration for interventional procedures as appropriate, and lifestyle modification (diet, weight loss, exercise, smoking/tobacco cessation, holistic approach including meditation and yoga). The patient understands and agrees prior to proceeding with this plan. _ __ __ __ __ __ __ __ __ __ __ __ __ __ __ __ __ __ __ __ __ __ __ __ __ __ __ __ _ RECORDS REVIEW: As per clinic policy, we will have the patient sign a release to obtain previous imaging and clinical notes. PROCEDURE: I counseled the patient extensively and informed of the risks of the procedure, including the risk of paralysis, nerve damage, respiratory arrest, arrhythmias, stroke, weakness, and infection, which although very low, could result in or disability. The patient acknowledged to me that they understand and accept these risks. RN EDUCATION Extensive coordination of care provided by RN to educate patient on upcoming procedure and to coordinate obtaining extensive incoming medical records. _ __ __ __ __ __ __ __ __ __ __ __ __ __ __ __ __ __ __ __ __ __ __ __ __ __ __ __ _ PSYCH: Pain affecting Neuro-psych behavior was discussed. Discussed about pain psychological counseling as a part of the multimodal approach to pain treatment. _ __ __ __ __ __ __ __ __ __ __ __ __ __ __ __ __ __ __ __ __ __ __ __ __ __ __ __ _ REHABILITATION: Discussed with the patient the importance of diet, daily physical activity and PT. Discussed with the patient the need to be scheduled for physical therapy since physical therapy will prolong the benefits of the procedure and interventions. _ __ __ __ __ __ __ __ __ __ __ __ __ __ __ __ __ __ __ __ __ __ __ __ __ __ __ __ _ CORINA: [id number] I have reviewed patient's CORINA report prior to prescribing Schedule II, III, and IV medications that require review by law. julia Not available 03/13/2023 08:55:38 Plan of Treatment Reminders Order Date Submit Date Provider Last Modified By Organization Details Last Modified Time Details Appointments None recorded. Lab None recorded. Referral None recorded. Procedures sacroiliac joint injection (PROC) - 95557, bilateral therapeutic 2022 023 alina [address] MD, [address], [address], [place], [address], 3 11:44:59 Surgeries None recorded. Imaging RF, upper gastrointes tinal tract + small bowel, w/ contrast PO 2022 023 meaghan 64 [facility] (Centralized Scheduling), [address], [place], [address], 3 15:53:12 Medication Orders None recorded. Patient TargetsNo targets recorded. Patient InstructionsNo instructions recorded. Reason for Referral None Reported. Results Created Date Observation Date Name Description Value Unit Range Abnormal Flag Note LastModifiedBy Organization Detail LastModifiedTime 08/25/19 24 08/25/2023 CBC AUTO NO DIFF (HEMO GRAM) WBC 5.5 K/uL 4.0-10 .5 Not Available [facility] ([facility]) [address] , [place], [address], 08/25/2023 14:36:14 08/25/19 24 08/25/2023 CBC AUTO NO DIFF (HEMO GRAM) RBC 4.1 M/mm3 4.2-6. 4 low Not Available [facility] ([facility]) [address] , [place], [address], 08/25/2023 14:36:14 08/25/19 24 08/25/2023 CBC AUTO NO DIFF (HEMO GRAM) HGB 10.9 gm/dL 12.5-1 6.0 low Not Available [facility] ([facility]) [address] , [place], [address], 08/25/2023 14:36:14 08/25/19 24 08/25/2023 CBC AUTO NO DIFF (HEMO GRAM) HCT 34.7 % 37.0-4 7.0 low Not Available [facility] ([facility]) [address] , [place], [address], 08/25/2023 14:36:14 08/25/19 24 08/25/2023 CBC AUTO NO DIFF (HEMO GRAM) MCV 84.4 fL 78-100 Not Available [facility] ([facility]) [address] , [place], [address], 08/25/2023 14:36:14 08/25/19 24 08/25/2023 CBC AUTO NO DIFF (HEMO GRAM) MCH 26.5 pg 27-31 low Not Available [facility] ([facility]) [address] , [place], [address], 08/25/2023 14:36:14 08/25/19 24 08/25/2023 CBC AUTO NO DIFF (HEMO GRAM) MCHC 31.4 g/dL 32-36 low Not Available [facility] ([facility]) [address] , [place], [address], 08/25/2023 14:36:14 08/25/19 24 08/25/2023 CBC AUTO NO DIFF (HEMO GRAM) RDW 14.8 % 11.5-1 4.0 high Not Available [facility] ([facility]) [address], [place], [address], 08/25/2023 14:36:14 08/25/19 24 08/25/2023 CBC AUTO NO DIFF (HEMO GRAM) platelet count 210 K/uL 150-45 0 Not Available [facility] ([facility]) [address], [place], [address], 08/25/2023 14:36:14 08/25/19 24 08/25/2023 CBC AUTO NO DIFF (HEMO GRAM) MPV 10.8 fL 6-9.5 high Not Available [facility] ([facility]) [address], [place], [address], 08/25/2023 14:36:14 08/25/19 24 08/25/2023 CBC AUTO NO DIFF (HEMO GRAM) manual differential NO Not Available [facility] ([facility]) [address], [place], [address], 08/25/2023 14:36:14 08/25/19 24 08/25/2023 BASIC METAB OLIC PANEL sodium 139 mmol/ L 136-14 5 Not Available [facility] ([facility]) [address], [place], [address], 08/25/2023 14:53:42 08/25/19 24 08/25/2023 BASIC METAB OLIC PANEL potassium 3.5 mmol/ L 3.6-5. 0 low Not Available [facility] ([facility]) [address] , [place], [address], 08/25/2023 14:53:42 08/25/19 24 08/25/2023 BASIC METAB OLIC PANEL chloride 102 mmol/ L 98-107 Not Available [facility] ([facility]) [address] , [place], [address], 08/25/2023 14:53:42 08/25/19 24 08/25/2023 BASIC METAB OLIC PANEL carbon dioxide 27.9 mmol/ L 21.0-3 2.0 Not Available [facility] ([facility]) [address] , [place], [address], 08/25/2023 14:53:42 08/25/19 24 08/25/2023 BASIC METAB OLIC PANEL anion gap 12.6 Not Available [facility] ([facility]) [address] , [place], [address], 08/25/2023 14:53:42 08/25/19 24 08/25/2023 BASIC METAB OLIC PANEL glucose 122 mg/dL 70-120 high Not Available [facility] ([facility]) [address] , [place], [address], 08/25/2023 14:53:42 08/25/19 24 08/25/2023 BASIC METAB OLIC PANEL BUN 11 mg/dL 7-18 Not Available [facility] ([facility]) [address] , [place], [address], 08/25/2023 14:53:42 08/25/19 24 08/25/2023 BASIC METAB OLIC PANEL creatinine 0.9 mg/dL 0.6-1. 3 Not Available [facility] ([facility]) [address] , [place], [address], 08/25/2023 14:53:42 08/25/19 24 08/25/2023 BASIC METAB OLIC PANEL glomerular filtration rate >60 mlper min 60- Not Available [facility] ([facility]) [address], [place], [address], 08/25/2023 14:53:42 08/25/19 24 08/25/2023 BASIC METAB OLIC PANEL calcium 8.5 mg/dL 8.5-10 .5 Not Available [facility] ([facility]) [address], [place], [address], 08/25/2023 14:53:42 08/25/19 24 08/25/2023 URINA LYSIS REFLE X MICRO SCOPI C color YELLOW yellow Not Available [facility] ([facility]) [address], [place], [address], 08/25/2023 15:01:24 08/25/19 24 08/25/2023 URINA LYSIS REFLE X MICRO SCOPI C appearance CLEAR clear Not Available [facility] ([facility]) [address], [place], [address], 08/25/2023 15:01:24 08/25/19 24 08/25/2023 URINA LYSIS REFLE X MICRO SCOPI C glucose norm normal Not Available [facility] ([facility]) [address], [place], [address], 08/25/2023 15:01:24 08/25/19 24 08/25/2023 URINA LYSIS REFLE X MICRO SCOPI C bilirubin NEGATI VE negati ve Not Available [facility] ([facility]) [address], [place], [address], 08/25/2023 15:01:24 08/25/19 24 08/25/2023 URINA LYSIS REFLE X MICRO SCOPI C ketone NEGATI VE negati ve Not Available [facility] ([facility]) [address] [place], [address], 08/25/2023 15:01:24 08/25/19 24 08/25/2023 URINA LYSIS REFLE X MICRO SCOPI C specific gravity 1.010 1.016- 1.022 low Not Available [facility] ([facility]) [address], [place], [address], 08/25/2023 15:01:24 08/25/19 24 08/25/2023 URINA LYSIS REFLE X MICRO SCOPI C blood 10 negati ve Not Available [facility] ([facility]) [address], [place], [address], 08/25/2023 15:01:24 08/25/19 24 08/25/2023 URINA LYSIS REFLE X MICRO SCOPI C pH 6.5 5-9 Not Available [facility] ([facility]) [address], [place], [address], 08/25/2023 15:01:24 08/25/19 24 08/25/2023 URINA LYSIS REFLE X MICRO SCOPI C protein NEGATI VE negati ve Not Available [facility] ([facility]) [address], [place], [address], 08/25/2023 15:01:24 08/25/19 24 08/25/2023 URINA LYSIS REFLE X MICRO SCOPI C urobilinogen 1 normal delta Not Available [facility] ([facility]) [address], [place], [address], 08/25/2023 15:01:24 08/25/19 24 08/25/2023 URINA LYSIS REFLE X MICRO SCOPI C nitrite NEGATI VE negati ve Not Available [facility] ([facility]) [address], [place], [address], 08/25/2023 15:01:24 08/25/19 24 08/25/2023 URINA LYSIS REFLE X MICRO SCOPI C leukocyte esterase 25 negati ve delta Not Available [facility] ([facility]) [address], [place], [address], 08/25/2023 15:01:24 08/25/19 24 08/25/2023 URINA LYSIS REFLE X MICRO SCOPI C culture required NO Not Available [facility] ([facility]) [address], [place], [address], 08/25/2023 15:01:24 08/25/19 24 08/25/2023 URINA LYSIS REFLE X MICRO SCOPI C RBC RARE none seen Not Available [facility] ([facility]) [address], [place], [address], 08/25/2023 15:01:24 08/25/19 24 08/25/2023 URINA LYSIS REFLE X MICRO SCOPI C WBC RARE none seen Not Available [facility] ([facility]) [address], [place], [address], 08/25/2023 15:01:24 08/25/19 24 08/25/2023 URINA LYSIS REFLE X MICRO SCOPI C epithelial cell RARE none seen Note: Great er than 10 epith elial cells could indic ate conta minat ion. Speci men recol lecti on shoul d be consi dered . Not Available [facility] ([facility]) [address], [place], [address], 08/25/2023 15:01:24 08/25/19 24 08/25/2023 URINA LYSIS REFLE X MICRO SCOPI C bacteria NONE SEEN none seen Not Available [facility] ([facility]) [address], [place], [address], 08/25/2023 15:01:24 03/17/20 23 03/17/2023 MRI, cervi kalyan spine , w/o contr ast [facility] [address] [place] [address] Phone: Fax: Name: WINDY CROWDER Exam Date: 2022 : 964 Age 57 Gender : F Access ion: [id number] Physic amanuel: EVENS LEBRON Facili ty: [facility] Facili ty HSV: Outpat ient Exam: MRI CERVIC AL SPINE W/O FINAL REPORT CLINIC AL HISTOR Y: Chroni c neck pain No known trauma No surger y COMPAR KIM: None FINDIN GS: Multi planar MR imagin g was obtain ed of the cervic al spine. There is abnorm al decrea sed signal throug hout the cervic al discs. There is mild revers al of the cervic al lordos is. The cervic al cord demons trates normal signal and config uratio n. C2-C3: There is no eviden ce of signif icant disc bulge or protru makayla. There is no signif icant facet hypert rophy. C3-C4: Modera te endpla te hypert rophy eccent sandra to the right. Modera te to high-g rade right neurof oramin al narrow ing. C4-C5: Mild endpla te hypert rophy eccent sandra to the left. Modera te left neurof oramin al narrow ing. C5-C6: Modera te endpla te hypert rophy. Modera te bilate ral neurof oramin al narrow ing. C6-C7: Mild endpla te of perjur y. Mild bilate ral neurof oramin al narrow ing. C7-T1: There is no eviden ce of signif icant disc bulge or protru makayla. There is no signif icant facet hypert rophy. IMPRES MAKAYLA: Neurof oramin al compro mise most eviden t on the right at C3-4, on the left at C4-5, and bilate rally at C5-6. Review ed, Interp reted and Dictat ed by Chuy newton MD Transc ribed by Elizabeth Ray ticcj d and Electr onical ly Signed by Chuy newton MD on 2022 01:13: 25 PMEAST GARETH Dictat ed By: CHUY SAMUEL Transc ribed By: Transc ribed On: 2022 1:13 PM Electr onical ly signed by: CHUY SAMUEL 2022 Thank you for referr WINDY Monahan to [facility]. Legall y authen ticate d by KRISS Mcgowan 2022-05 13:13: 25 CC'ed Logic: Orderi ng Provid er: MARTINE HORNER Attend ing Provid er: MARTINE HORNER Admitt ing Provid er: MARTINE HORNER [id number] [facility] [address] [place] [address], [place], [address], 03/19/2023 14:32:06 03/21/20 23 03/21/2023 ugi w/air w/o KUB [facility] [address] [place] [address] Phone: Fax: Name: WINDY CROWDER Exam Date: 2022 : 964 Age 57 Gender : F Access ion: [id number] Physic amanuel: MENDEL LAWRENCE Facili ty: [facility] Facili ty HSV: Outpat ient Exam: UGI W/AIR W/O KUB UPPER GI AND SMALL BOWEL FOLLOW -THROU GH HISTOR Y: Dyspha vahid, consti pation PROCED URE: The patien t ingest ed barium . 19 Spot and overhe ad films were obtain ed. Fluoro scopy time: 168.8 second s Fluoro scopy dose: DAP: 1015.4 72 dGycm2 FINDIN GS: Upper GI: The advanced manager film is unrema rkable . There is mild esopha geal dysmot ility. There is a small hiatal hernia . There is modera te gastro esopha geal reflux . The patien t was admini stered a 13 mm barium tablet , the tablet passes the GE juncti on withou t compli cation s. Small bowel follow -throu gh: The termin al ileum is unrema rkable . Transi t time is normal with contra st in the colon at less than 1 hour. IMPRES MAKAYLA: Small hiatal hernia . Modera te gastro esopha geal reflux with mild esopha geal dysmot ility. Unrema rkable small bowel follow -throu gh. Images review ed, interp reted, and dictat ed by Dr. Rubi Jones . Transc ribed by Brandon Winn PA-C Dictat ed By: Rubi Han Transc ribed By: Rubi Jones Transc ribed On: 2022 12:09 PM Electr onical ly signed by: Rubi Han 2022 Thank you for referr WINDY Monahan to [facility]. Legall y authen ticate d by TWIN TAYLOR 2022-05 12:09: 30 CC'ed Logic: Orderi ng Provid er: KRISTINA MAST Attend ing Provid er: KRISTINA MAST Referr ing Provid er: KRISTINA MAST Admitt ing Provid er: KRISTINA MAST [id number] [facility] [address] [place] [address], [place], [address], 03/21/2023 16:43:11 08/15/19 24 08/14/2023 CT, abdom en + pelvi s, w/ contr ast No observ ation record ed. [email or web address] Not Available 2023 10:19:23 Result Notes Documentation Provider Name and Address Organization Details Recorded Time Mri, Cervical Spine, W/o Contrast : [facility] [address] [place] [address] Name: WINDY CROWDER Exam Date: 03/17/2023 : 1965 Age 57 Gender: F Physician: EVENS CHURCH Facility: [facility] Facility HSV: Outpatient Exam: MRI CERVICAL SPINE W/O FINAL REPORT CLINICAL HISTORY: Chronic neck pain No known trauma No surgery COMPARISON: None FINDINGS: Multi planar MR imaging was obtained of the cervical spine. There is abnormal decreased signal throughout the cervical discs. There is mild reversal of the cervical lordosis. The cervical cord demonstrates normal signal and configuration. C2-C3: There is no evidence of significant disc bulge or protrusion. There is no significant facet hypertrophy. C3-C4: Moderate endplate hypertrophy eccentric to the right. Moderate to high-grade right neuroforaminal narrowing. C4-C5: Mild endplate hypertrophy eccentric to the left. Moderate left neuroforaminal narrowing. C5-C6: Moderate endplate hypertrophy. Moderate bilateral neuroforaminal narrowing. C6-C7: Mild endplate of perjury. Mild bilateral neuroforaminal narrowing. C7-T1: There is no evidence of significant disc bulge or protrusion. There is no significant facet hypertrophy. IMPRESSION: Neuroforaminal compromise most evident on the right at C3-4, on the left at C4-5, and bilaterally at C5-6. Reviewed, Interpreted and Dictated by Chuy Wright MD Transcribed by Elizabeth Cui Authenticated and EASTERN Dictated By: CHUY WRIGHT Transcribed By: Transcribed On: 03/17/2023 1:13 PM Electronically signed by: CHUY WRIGHT 03/17/2023 Thank you for referring WINDY CROWDER to [facility]. Legally authenticated by YUNIEL Mcgowan 2023-03-17 13:13:25 CC'ed Logic: Ordering Provider: RUBY HORNER Attending Provider: RUBY HORNER Admitting Provider: RANDALL VASQUEZ [address] [facility], [place], [address], REJI - [place] - [facility] & [place] 03/19/2023 14:32:06 Problems Name Problem SNOMED Code Status Onset Date Resolution Date Notes Provider Name and Address Organization Details Recorded Time Spinal stenosis in cervical region 95707924 Active 2022 REJI Lees [facility] - [place] & [place] 3 08:27:11 Brachial (cervical) neuritis 016842723 Active 2022 REJI Lees - [place] & [place] 3 08:27:34 Muscle weakness of limb 172542995 Active 2022 Anisha Marroquin null, [place] - [facility] - [place] & [place] 3 08:27:50 Paresthesia of upper limb 70810456 Active 2022 Anisha Marroquin [place] [facility] [place] 3 08:28:09 Inflammation of sacroiliac joint 81285552 Active 2022 Anisha Marroquin [place] [facility] [place] & [place] 3 09:41:22 Spinal stenosis of lumbar region 07336479 Active 2022 Anisha Marroquin [place] [facility] [place] 3 09:41:51 Gastroesophag eal reflux disease 949728476 Active 2022 Mendel Lawrence PA-C [address], [place], [address] , [place] - [facility] - [facility] & [place] 3 10:38:44 Dysphagia 26445239 Active 2022 Mendel Lawrence PA-C [address], [place], [address] , [place] - [facility] - [facility] & [place] 3 10:38:48 Abdominal pain 03037338 Active 2022 Mendel Lawrence PA-C [address], [place], [address] , [place] - [facility] - [facility] & [place] 3 10:38:56 Chronic idiopathic constipation 08884182 Active 2022 Mendel Lawrence PA-C [address], [place], [address] , [place] - [facility] - [facility] & [place] 3 10:39:31 Gastroparesis syndrome 065193364 Active 2022 Mendel Lawrence PA-C [address], [place], [address] , [place] - [facility] - [facility] & [place] 3 10:39:34 Abdominal distension symptom 763113813 Active 2022 Mendel Lawrence PA-C [address], [place], [address] , [place] - [facility] - [place] & [place] 11:02:02 Problem Notes None recorded. Procedures Surgical History Date Name Laterality Status Provider Name and Address Organization Details Recorded Time 08/27/19 24 repair of recurrent ventral hernia completed Rayo Dave REJI - [facility] - [place] & [place] 09/11/2023 09:24:03 03/12/20 23 Procedure Note completed Mendel Lawrence PA-C [address], [place], [address], [place] - [facility] - [place] & [place] 03/12/2023 08:38:08 02/06/20 23 Injection Only completed Sheryl MENDOZA - [facility] - [place] & [place] 02/03/2023 12:01:14 01/16/20 23 Injection Only completed Sheryl MENDOZA - [facility] - [place] & [place] 01/13/2023 15:09:14 12/25/19 23 Injection Only completed Anisha MENDOZA - [facility] - [place] & [place] 12/24/2022 13:27:14 Cancer Surgery completed Rayo Tenzin REJI - [facility] - [place] & [place] 08/19/2023 13:27:28 hernia repair completed Rayo Dave REJI - [facility] - [place] & [place] 08/19/2023 13:28:37 Imaging Results None recorded. Procedure Notes None recorded. Medical Equipment None Reported. Allergies Allergen ID Allergen Name Allergen Category Reaction Reaction Severity Criticality Documentation Date Start Date Code Code System Note Provider Name and Address Organization Details Recorded Time 479368 latex environme nt,medica tion Not available Not available Not available 09/10/2023 54714 91 RxNorm Rayo Tenzin aggarwal [place] - [facility] - [place] & [place] 11:03:06 Medications Name Sig Start Date Stop Date Status Note LastModified by Organization Details LastModified Time binaxnow covid-19 ag card home test kit 12/24 completed Not Available Not Available Not Available Miralax 17 gram oral powder packet 5 packets 3 times a day by oral route. 09/07 completed Not Available Not Available Not Available cyclobenzap rine 10 mg tablet TAKE 1 TABLET BY MOUTH THREE TIMES DAILY NEEDED FOR MUSCLE SPASM 09/07 completed Not Available Not Available Not Available amoxicillin 500 mg capsule TAKE 4 CAPSULES BY MOUTH A SINGLE DOSE ONE HOUR BEFORE DENTAL APPOINTME NT 02/17 completed Not Available Not Available Not Available betamethaso ne valerate 0.1 % topical ointment 02/17 completed Not Available Not Available Not Available bupropion HCl SR 150 mg tablet,12 hr sustained-r elease TAKE 1 TABLET BY MOUTH TWICE DAILY 02/17 completed Not Available Not Available Not Available promethazin e-DM 6.25 mg-15 mg/5 mL oral syrup 09/07 completed Not Available Not Available Not Available azelastine 0.05 % eye drops INSTILL 1 DROP INTO AFFECTED EYE(S) TWICE DAILY DIRECTED 09/07 completed Not Available Not Available Not Available doxycycline hyclate 100 mg capsule 09/07 completed Not Available Not Available Not Available azithromyci n 250 mg tablet TAKE 2 TABLETS BY MOUTH ON DAY 1, AND THEN TAKE 1 TABLET BY MOUTH ONCE A DAY ON DAY 2 THROUGH DAY 5 02/17 completed Not Available Not Available Not Available fluconazole 150 mg tablet 09/07 completed Not Available Not Available Not Available benzonatate 200 mg capsule TAKE 1 CAPSULE BY MOUTH THREE TIMES DAILY NEEDED FOR COUGH . DO NOT EXCEED 3 PER 24 HOURS 09/07 completed Not Available Not Available Not Available hydrocodone 5 mg-acetamin ophen 325 mg tablet TAKE 1 TABLET BY MOUTH EVERY 8 HOURS NEEDED FOR SEVERE PAIN 09/07 completed Not Available Not Available Not Available fluconazole 200 mg tablet TAKE 1 TABLET BY MOUTH NOW, OK TO REPEAT IN 3 DAYS IF NEEDED 02/17 completed Not Available Not Available Not Available famotidine 40 mg tablet TAKE 1 TABLET BY MOUTH EVERY DAY AT BEDTIME 09/07 completed Not Available Not Available Not Available prednisone 20 mg tablet 09/07 completed Not Available Not Available Not Available valacyclovi r 500 mg tablet 09/07 completed Not Available Not Available Not Available tramadol 50 mg tablet 1 tablet as needed by oral route. 09/07 completed Not Available Not Available Not Available amitriptyli ne 50 mg tablet TAKE 1 TABLET BY MOUTH EVERY DAY AT BEDTIME active Not Available Not Available No t Available ondansetron 8 mg disintegrat ing tablet DISSOLVE 1 TABLET IN MOUTH EVERY 8 HOURS NEEDED FOR NAUSEA FOR VOMITING active Not Available Not Available No t Available levothyroxi ne 100 mcg tablet TAKE 1 TABLET BY MOUTH ONCE DAILY active Not Available Not Available No t Available amitriptyli ne 25 mg tablet TAKE 1 TABLET BY MOUTH ONCE DAILY AT NIGHT AT BEDTIME FOR 10 DAYS 02/17 completed Not Available Not Available Not Available dicyclomine 20 mg tablet TAKE 1 TABLET BY MOUTH 4 TIMES DAILY NEEDED FOR ABDOMINAL PAIN 02/17 completed Not Available Not Available Not Available benzonatate 100 mg capsule 09/07 completed Not Available Not Available Not Available pantoprazol e 40 mg tablet,kimberly yed release 09/07 completed Not Available Not Available Not Available buspirone 30 mg tablet TAKE 1 TABLET BY MOUTH TWICE DAILY active Not Available Not Available No t Available lidocaine 5 % topical patch USE 1 PATCH EXTERNALL Y EVERY 12 HOURS WEAR FOR 12 HOURS AND THEN OFF FOR 12 HOURS active Not Available Not Available No t Available gabapentin 300 mg capsule TAKE 1 CAPSULE BY MOUTH THREE TIMES DAILY active Not Available Not Available No t Available etodolac 400 mg tablet 09/07 completed Not Available Not Available Not Available mupirocin 2 % topical ointment 09/07 completed Not Available Not Available Not Available ibuprofen 600 mg tablet TAKE 1 TABLET BY MOUTH EVERY 6 TO 8 HOURS NEEDED FOR PAIN; GIVE W/FOOD IF STOMACH UPSET OCCURS 02/17 completed Not Available Not Available Not Available levofloxaci n 500 mg tablet TAKE 1 TABLET BY MOUTH ONCE DAILY 02/17 completed Not Available Not Available Not Available levofloxaci n 750 mg tablet TAKE 1 TABLET BY MOUTH ONCE DAILY 09/07 completed Not Available Not Available Not Available zolpidem 10 mg tablet TAKE 1 TABLET BY MOUTH AT NIGHT NEEDED FOR SLEEP active Not Available Not Available No t Available methylpredn isolone 4 mg tablets in a dose pack TAKE BY MOUTH DIRECTED ON INSIDE OF PACKAGE 02/17 completed Not Available Not Available Not Available albuterol sulfate HFA 90 mcg/actuati on aerosol inhaler INHALE 2 PUFFS BY MOUTH EVERY 4 TO 6 HOURS NEEDED FOR DRY COUGH,DEV RTNESS OR BREATH,WH EEZING active Not Available Not Available No t Available bromphenira mine-pseudo ephedrine-D M 2 mg-30 mg-10 mg/5 mL oral syrup TAKE 5 ML BY MOUTH 4 TIMES DAILY NEEDED FOR CONGESTIO N 02/17 completed Not Available Not Available Not Available ondansetron 4 mg disintegrat ing tablet 09/07 completed Not Available Not Available Not Available fluticasone propionate 50 mcg/actuati on nasal spray,suspe nsion USE 1 SPRAY(S) IN EACH NOSTRIL TWICE DAILY DIRECTED active Not Available Not Available No t Available sorbitol 70 % solution 09/07 completed Not Available Not Available Not Available metoclopram magaly 10 mg tablet 09/07 completed Not Available Not Available Not Available amoxicillin 875 mg-potassiu m clavulanate 125 mg tablet 09/07 completed Not Available Not Available Not Available escitalopra m 20 mg tablet TAKE 1 & 1/2 (ONE & ONE-HALF) TABLETS BY MOUTH ONCE DAILY active Not Available Not Available No t Available nitrofurant oin monohydrate /macrocryst als 100 mg capsule 09/07 completed Not Available Not Available Not Available lubiproston e 24 mcg capsule 09/07 completed Not Available Not Available Not Available peg 3350-electr olytes 236 gram-22.74 gram-6.74 gram-5.86 gram solution 09/07 completed Not Available Not Available Not Available levocetiriz ine 5 mg tablet TAKE 1 TABLET BY MOUTH ONCE DAILY IN THE EVENING 01/29 completed Not Available Not Available Not Available diclofenac 1 % topical gel APPLY 4 GRAMS TOPICALLY TO AFFECTED AREA DIRECTED 4 TIMES DAILY NEEDED FOR ELBOW PAIN 08/17 completed Not Available Not Available Not Available dexlansopra zole 60 mg capsule,bip hase delayed release TAKE 1 CAPSULE BY MOUTH ONCE DAILY. DO NOT CRUSH OR CHEW active Not Available Not Available No t Available sodium,pota ssium,mag sulfates 17.5 gram-3.13 gram-1.6 gram oral soln USE DIRECTED 02/17 completed Not Available Not Available Not Available Linzess 145 mcg capsule TAKE 1 CAPSULE BY MOUTH ONCE DAILY active Not Available Not Available No t Available Linzess 290 mcg capsule TAKE 1 CAPSULE BY MOUTH ONCE DAILY active Not Available Not Available No t Available Xiidra 5 % eye drops in a dropperette INSTILL 1 DROP INTO EACH EYE TWICE DAILY 02/17 completed Not Available Not Available Not Available Sutab 1.479-0.188 -0.225 gram tablet TAKE 12 TABLETS BY MOUTH FOR ONE DOSE DIRECTED FOR PROCEDURE 02/17 completed Not Available Not Available Not Available BinaxNOW COVID-19 Ag Self Test kit 09/07 completed Not Available Not Available Not Available Paxlovid 300 mg (150 mg x 2)-100 mg tablets in a dose pack TAKE 3 TABLETS TOGETHER (TWO 150 MG NIRMATREL VIR TABLETS AND ONE 100 MG RITONAVIR TABLET) BY MOUTH TWICE DAILY FOR 5 DAYS. 02/17 completed Not Available Not Available Not Available Mounjaro 7.5 mg/0.5 mL subcutaneou s pen injector INJECT 7.5 MG ONCE A WEEK FOR FOUR WEEKS 02/17 completed Not Available Not Available Not Available Mounjaro 5 mg/0.5 mL subcutaneou s pen injector INJECT ONCE A WEEK 02/17 completed Not Available Not Available Not Available Mounjaro 2.5 mg/0.5 mL subcutaneou s pen injector INJECT 2.5 MG SUBCUTANE OUSLY ONCE A WEEK FOR 4 WEEKS 02/17 completed Not Available Not Available Not Available Vitals Date Recorded Body height Body mass index (BMI) Body weight Body temperature Oxygen saturation Oxygen saturation in Arterial blood by Pulse oximetry Heart rate Systolic And Diastolic Provider Name and Address Organization Details Last Updated DateTime 4 170.18 cm 37.3 kg/m2 229268. 98 g 97.7 [degF] 97 % 97 % 82 /min 108/76 mm[Hg] Rayo MENDOZA [facility] - [place] & [place] 4 13:27:11 Date Recorded Body height Body mass index (BMI) Body weight Body temperature Oxygen saturation Oxygen saturation in Arterial blood by Pulse oximetry Heart rate Systolic And Diastolic Provider Name and Address Organization Details Last Updated DateTime 4 170.18 cm 38.7 kg/m2 918103. 32 g 97.5 [degF] 97 % 97 % 75 /min 102/78 mm[Hg] [facility] & [place] 4 09:22:51 Date Recorded Body weight Body temperature Oxygen saturation Oxygen saturation in Arterial blood by Pulse oximetry Heart rate Systolic And Diastolic Provider Name and Address Organization Details Last Updated DateTime 3 788585. 83 g 98.6 [degF] 96 % 96 % 96 /min 131/72 mm[Hg] [facility] & [place] 3 11:28:01 Date Recorded Body weight Body mass index (BMI) Body height Heart rate Body temperature Oxygen saturation Oxygen saturation in Arterial blood by Pulse oximetry Heart rate Systolic And Diastolic Provider Name and Address Organization Details Last Updated DateTime 3 983635. 41 g 36.7 kg/m2 170.18 cm 92 /min 98.4 [degF] 98 % 98 % 83 /min 128/82 mm[Hg] [facility]ina [facility] & [place] 3 10:15:08 Date Recorded Body height Body mass index (BMI) Body weight Body temperature Oxygen saturation Oxygen saturation in Arterial blood by Pulse oximetry Heart rate Systolic And Diastolic Provider Name and Address Organization Details Last Updated DateTime 3 170.18 cm 37 kg/m2 910253. 8 g 98 [degF] 96 % 96 % 75 /min 110/60 mm[Hg] Neida Marlow [facility] & [place] 3 08:27:43 Social History Question Answer Notes LastModified by Organizat ion Details LastModified Time Tobacco Smoking Status Never Smoker Rayo Dave [facility], [facility] & [place] 08/19/2023 13:28:20 Do You Have An Advance Directive? No [email or web address] Information not available 08/19/2023 Are You Blind Or Do You Have Difficulty Seeing? No [email or web address] Information not available 08/19/2023 What Was The Date Of Your Most Recent Tobacco Screening? 12/23/2022 Information not available 08/19/2023 Are You Passively Exposed To Smoke? No [email or web address] Information not available 08/19/2023 How Much Tobacco Do You Smoke? No [email or web address] Information not available 08/19/2023 How Many Years Have You Smoked Tobacco? 0 [email or web address] Information not available 08/19/2023 Sex: Unknown Functional Status Question Answer Note LastModified by Organizat ion Details LastModified Time Do you use any illicit or recreational drugs? No [email or web address] Information not available 08/19/2023 What is your level of alcohol consumption? None [email or web address] Information not available 08/19/2023 Do you or have you ever used smokeless tobacco? [id number] [email or web address] Information n ot available 08/19/2023 What is your exercise level? Occasional Information not available 08/19/2023 Mental Status Question Answer Note LastModified by Organization D etails LastModified Time Do you feel stressed (tense, restless, nervous, or anxious, or unable to sleep at night)? [id number] Information not available 08/19/2023 Family History Nothing Reported. Medical History Condition Response Thyroid Problems Y GI Problems Y Spine Problems Y Autoimmune disease Y Arthritis Y Back Problems Y Reflux/GERD Y Headaches Y Gynecological HistoryNo gynecological history recorded. Obstetrics History GPAL:G 0 P 0 0 0 0 Immunizations Vaccine Type Date Status Note Provider Nam e and Address Organization Details Recorded Time zoster recombinant 8 completed Rayo aggarwal [place] - [facility] & [place] 09/10/2023 11:04:28 zoster recombinant 8 tomás aggarwal [place] - [facility] & [place] 09/10/2023 11:04:28 COVID-19, mRNA, LNP-S, PF, 100 mcg/0.5mL dose or 50 mcg/0.25mL dose 1 completed Rayo aggarwal [place] - [facility] & [place] 09/10/2023 11:04:28 COVID-19, mRNA, LNP-S, PF, 100 mcg/0.5mL dose or 50 mcg/0.25mL dose 1 completed Rayo aggarwal [place] - [facility] & [place] 09/10/2023 11:04:28 COVID-19, mRNA, LNP-S, PF, 100 mcg/0.5mL dose or 50 mcg/0.25mL dose 1 completed Rayo Dave null, [place] [facility] & [place] 09/10/2023 11:04:28 Pneumococcal conjugate PCV20, polysaccharide [id number] conjugate, adjuvant, PF 2 completed Rayo Dave [place], [place] [facility] & [place] 09/10/2023 11:04:28 Tdap 6 completed Rayo Dave [place] [facility] [place] [facility] & [place] 09/10/2023 11:04:28 Influenza, split virus, trivalent, PF 7 completed Rayo Dave [place] [facility] [place] [facility] & [place] 09/10/2023 11:04:28 Hep B, adult 7 completed Rayo Dave [place] [facility] [place] [facility] & [place] 09/10/2023 11:04:28 Hep B, adult 7 completed Rayo Dave [place] [facility] [place] [facility] & [place] 09/10/2023 11:04:28 Hep B, adult 7 completed Rayo Dave [place] [facility] [place] [facility] [place] 09/10/2023 11:04:28 Hep A, adult 8 completed Rayo Dave [place] [facility] [place] [facility] & [place] 09/10/2023 11:04:28 Hep A, adult 8 completed Rayo Dave [place] [facility] [place] [facility] & [place] 09/10/2023 11:04:28 Influenza, split virus, quadrivalent, PF 1 completed Rayo Dave [place] [facility] 09/10/2023 11:04:28 Influenza, split virus, quadrivalent, PF 0 completed Rayo Dave [place] [facility] [place] [facility] & [place] 09/10/2023 11:04:28 Influenza, split virus, quadrivalent, PF 2 completed Rayo Dave [place] [facility] [place] [facility] & [place] 09/10/2023 11:04:28 Influenza, split virus, quadrivalent, PF 9 completed Rayo Dave REJI aggarwal - [facility] & [place] 09/10/2023 11:04:28 Influenza, split virus, quadrivalent, PF 8 completed Rayo Dave alessia, REJI - [facility] & [place] 09/10/2023 11:04:28 Past Encounters Encounter ID Performer Location Encounter Start Date Encounter Closed Date Diagnosis/Indication Diagnosis SNOMED-CT Code Diagnosis ICD10 Code Diagnosis IMO Codes Diagnosis Note [id number] Evens Church MD [facility] [address] [place] [id number] 12/24/2022 08:03:13 12/24/2022 10:00:09 Spinal stenosis in cervical region 66418030 M99.51 Brachial ( cervical) neuritis 041408965 M54.12 Muscle wea kness of limb 741224429 M62.81 Paresthesi a of upper limb 84774973 R20.2 Inflammati on of sacroiliac joint 28987971 M46.1 Spinal spencer nosis of lumbar region 38212811 M99.53 [id number] Evens Church MD [facility] [address] [place] [id number] 01/15/2023 08:21:41 01/15/2023 10:07:59 Spinal stenosis in cervical region 89840036 M99.51 Brachial ( cervical) neuritis 078747067 M54.12 Muscle wea kness of limb 033736393 M62.81 Paresthesi a of upper limb 99365730 R20.2 Inflammati on of sacroiliac joint 81794752 M46.1 Spinal spencer nosis of lumbar region 52213711 M99.53 [id number] Evens Church MD [facility] [address] [place] [id number] 02/05/2023 11:08:40 02/05/2023 12:02:24 Spinal stenosis in cervical region 69844562 M99.51 Brachial ( cervical) neuritis 909290635 M54.12 Muscle wea kness of limb 339374898 M62.81 Paresthesi a of upper limb 66998589 R20.2 Inflammati on of sacroiliac joint 50035651 M46.1 Spinal spencer nosis of lumbar region 95202839 M99.53 [id number] Evens Church MD [facility] [address] [facility] [place] [address] 03/13/2023 08:05:28 03/13/2023 10:01:56 Spinal stenosis in cervical region 23437755 M99.51 Brachial ( cervical) neuritis 305065103 M54.12 Muscle wea kness of limb 645722395 M62.81 Paresthesi a of upper limb 70431988 R20.2 Inflammati on of sacroiliac joint 19585076 M46.1 Spinal spencer nosis of lumbar region 61875505 M99.53 [id number] Mendel Lawrence PA-C [facility] [address] [facility] [address] [place] [address] 03/12/2023 09:47:56 03/12/2023 10:59:06 Gastroesophageal reflux disease 445856878 K21.9 Dysphagia 69339357 R13.1 0 Abdominal pain 84125633 R10.9 Chronic id iopathic constipation 07265981 K59.04 Gastropare sis syndrome 677659507 K31.84 Abdominal distension symptom 370725117 R14.0 [id number] Katharina Arceo MD [facility] [address] [facility] [place] [address] 08/19/2023 13:11:20 08/19/2023 14:32:14 Recurrent ventral incisional hernia 030504853 K43.2 patient has a recurrent incisional hernia. She has an extensive abdominal surgery history including laparotomy and sarcoma excision. Also I can visualize what appears to be fecal impaction despite patient taking Linzess. She may have right lower quadrant adhesions, uncertain if the renal stones are playing into the hematuria and right lower quadrant pain as well. I have scheduled the patient for robotic assisted laparoscop ic repair of the incisional hernia with mesh, plan intraperit cantu placement secondary to body habitus and high risk for hernia recurrence . time spent in review of prior records, viewing CT imaging, discussion of plan with patient was 50 minutes [id number] Katharina Arceo MD [facility] [address] [facility] [place] [address] 09/11/2023 09:00:21 09/11/2023 09:43:34 Recurrent ventral incisional hernia 104694340 K43.2 Stable postop. We did discuss that she should continue the current lifting restrictio ns until 6 weeks postoperat ively given the recurrent nature and size of the hernia. She may return to work with lifting restrictio ns and was given work release at the end of her short-term disability . Follow-up as needed. Health Concerns Section Related Observation LastModified by Organization Detai ls LastModified Time None Recorded Concern Status LastModified by Organization Details LastModified Time None Recorded Advance Directives Directive N: Payers Insurance Date Sequence Insurance Name Policy Number Policy Hairston Covered Member ID Hairston Member ID Guarantor Name 09/30/2023 1 [facility] (PP[facility] [id number] Windy Crowder [id number] Windy Crowder Notes Date Note Type Note Provider Name and Address Organization Details Recorded Time 3 text/htm l Mrs. Crowder was referred by Dr. Rocha for management of her chronic neck/BUE pain. Patient has been to Dr. Jeffery years ago where he was doing cervical injections which she reports were very helpful. She was also participating in PT several years ago which was helpful, but it became too expensive for her to continue. Patient takes Ambien for sleep. Patient takes Aspirin daily. The patient initially came to [facility] for management of neck/BUE pain which was treated with a CEI in 01/2022. She reports significant pain relief of greater than 80% for 7-8 months before the pain returned. The patient complains of neck pain with radiation into the BUE with numbness/tingling. She presents today to follow up post 2nd bilateral diagnostic SI joint injection. She experienced significant improvement in pain and function of greater than 80% for more than 6 hours before the pain returned..Initial complaint: chronic neck painOnset: on and off for 2 yearsContext: worsening over timeCharacter: numbness/tingling, throbbing, burning, aching, sharp, radiatingLocation: neck, BUE - worse on leftDuration: constant with fluctuationsInitial Intensity: 7/10Worse: sitting, looking down/up, rotation, turning headBetter: restAssociated symptoms: Denies saddle anaesthesia, denies acute bowel/bladder changes, denies acute power lossADLs: The patient's pain interferes with daily chores, exercise, sleep, relationships, and walking.Current Pain Medications: Hydrocodone - helpful, Tramadol, Gabapentin, Flexeril - mildly helpfulPrior Pain Medications: noneNSAIDS/OTC- not helpfulNon-interventional Tx: noneSurgery: nonePhysical Therapy: several years ago - helpful, too expensiveInterventional Tx: cervical injections - several years ago - helpful (Dr. Jeffery)Imaging/Studies: cervical MRI, x-ray RANDALL SILVER [address], [place], [address], [facility] [place] 02/06/2023 14:10:39 3 text/htm l CURRENT (03/12/23): Ms. Crowder is a pleasant 57-year-old female with history of gastroparesis, GERD, and chronic constipation who was referred by Dr. Rocha for evaluation of dysphagia. She actually presents with multiple GI complaints today. Her most bothersome issues is mid abdominal and RLQ pain. She states this has been progressively worse since undergoing ventral hernia repair last year. She notes intermittent abdominal distension, better with bowel movements. She reports infrequent BMs, going up to 5-6 days between bowel movements. She is currently taking Linzess 145 mcg daily, which she does not feel has improved this much. She states the higher dose only caused diarrhea, but did not help her to feel any better. She reports EGD and colonoscopy were attempted earlier this year in [place], but incomplete due to food in the esophagus and poor preparation on colonoscopy. She feels her symptoms are getting progressively worse.Regarding dysphagia, this is intermittent, worse with solids. She notes intermittent heartburn despite pantoprazole and fomotidine. Mendel Lawrence PA-C [address], [place], [address], [facility] [place] 03/12/2023 11:07:12 3 text/htm l ROS as noted in the HPI Mrs. Crowder was referred by Dr. Rocha for management of her chronic neck/BUE pain. Patient has been to Dr. Jeffery years ago where he was doing cervical injections which she reports were very helpful. She was also participating in PT several years ago which was helpful, but it became too expensive for her to continue. Patient takes Ambien for sleep. Patient takes Aspirin daily. Patient presents today 2 weeks status post bilateral therapeutic SI joint injection. She reports greater than 80% improved pain and function since the injection. She is able to stand and walk for longer periods of time with less pain. Patient continues to complain of neck pain and bilateral upper extremity pain. She has a cervical MRI scheduled on March 17, 2023. She has had prior cervical epidural in January of 2022 with greater than 80% relief for 7-8 months. Pain today is 6/10, mainly neck pain. Initial complaint: chronic neck painOnset: on and off for 2 yearsContext: worsening over timeCharacter: numbness/tingling, throbbing, burning, aching, sharp, radiatingLocation: neck, BUE - worse on leftDuration: constant with fluctuationsInitial Intensity: 7/10Worse: sitting, looking down/up, rotation, turning headBetter: restAssociated symptoms: Denies saddle anaesthesia, denies acute bowel/bladder changes, denies acute power lossADLs: The patient's pain interferes with daily chores, exercise, sleep, relationships, and walking.Current Pain Medications: Hydrocodone - helpful, Tramadol, Gabapentin, Flexeril - mildly helpfulPrior Pain Medications: noneNSAIDS/OTC- not helpfulNon-interventional Tx: noneSurgery: nonePhysical Therapy: several years ago - helpful, too expensiveInterventional Tx: cervical injections - several years ago - helpful (Dr. Jeffery)Imaging/Studies: cervical MRI, x-ray RANDALL SILVER [address], [place], [address], [facility] [place] [facility] [place] 03/13/2023 08:55:54 4 text/htm l 58-year-old woman referred for a recurrent incisional hernia. She underwent robotic repair of an incarcerated incisional hernia by me in 2020. Due to bowel inflammation, this was closed primarily and patched with Phasix mesh. She recently has had bulging and supraumbilical pain. Patient states she has also had prolonged and worsening right lower quadrant abdominal pain. She states that she has severe nausea and pain with eating. She has also had recent dysuria and microscopic hematuria, was treated with antibiotics for presumed UTI without symptom resolution. She has had extensive recent GI workup including EGD which was normal, colonoscopy which showed poor prep also normal. Upper GI showed moderate reflux and a small hiatal hernia. I have viewed CT imaging showing supraumbilical incisional hernia containing a small amount of unobstructed transverse colon. CT read also mentions bilateral renal stones. Katharina Arceo MD [address], [place], [address], [facility] [place] 08/19/2023 15:01:04 4 text/htm l 2 weeks status post robotic repair of recurrent incisional hernia. She feels well overall, does have some persistent incisional pain with physical activity. This is improving. Katharina Arceo MD [address], [place], [address], [facility] [place] 09/18/2023 09:15:42 OBGyn Episode No OBEpisode recorded.
--- OUTSIDE RECORDS SUMMARY | 2025-03-01 18:20 | XMS_ITS | Encounter Summary ---
[facility] Organization [facility] Address [address] [place] [address] Care Team Providers Care Pot Builder Name Role Phone Surinder Rocha MD Primary Care Provider [phone] Encounter Details Date Type Department Care Team (Latest Contact Info) Description 02/08/2025 Travel Social History Tobacco Use Types Packs/Day [...] or training? Not on file Preferred Language Czech 08/18/2023 PHQ-2 Answer Date Recorded Patient Health [...] Description 03/30/2025 8:45 AM EST Office Visit [facility] [address] [place] [address] Surinder Rocha MD [address] [place] [address] 08/25/2025 8:30 AM EDT Appointment [place] [id number] documented as of this encounter Visit Diagnoses Not on filedocumented in this encounter Additional Health Concerns Assessment Noted Time PHQ-2 Depression Total Score: 1 05/20/19 24 12:36 PM EST documented as of this encounter Care Teams Pot Builder Relationship Specialty Start Date End Date Surinder Rocha MD [address] [place] [address] PCP - General Family Medicine 10/05/19 documented as of this encounter
--- OUTSIDE RECORDS SUMMARY | 2025-03-01 18:20 | XMS_ITS | Encounter Summary ---
[facility] [address] [place] [address] Care Team Providers Care Lens Gauger Name Role Phone Surinder Rocha MD Primary Care Provider [phone] Reason for Visit * Reason Onset Date Comments PHARMACY CALLS 03/01/2025 Encounter Details Date Type Department Care Team (Late st Contact Info) Description 03/01/2025 Telephone [facility] [address] [place] [address] Surinder Rocha MD [address] [place], [place] [id number] PHARMACY CALLS Social History Tobacco Use Types [...] or training? Not on file Preferred Language Samoan 08/18/2023 PHQ-2 Answer Date Recorded Patient Health Questionnaire-2 Score 1 09/08/2024 Comments No Sex and Gender Information Value Date Recorded Sex Assigned at Female 11/13/2023 11:14 AM EDT Legal Sex Female 1:16 PM EDT Gender Identity Female 11/13/2023 11:14 AM EDT Sexual Orientation Straight 11/13/2023 11 :14 AM EDT documented as of this encounter Miscellaneous Notes * Telephone Encounter - Sandra River LPN - 03/01/2025 3:13 PM EDT Left detailed vm for pharm with response * Telephone Encounter - Surinder Rocha MD - 03/01/2025 2:13 PM EDT 5ML PO BID is fine! * Telephone Encounter - Farida Fitzgerald RegSched Rep - 03/01/2025 9:31 AM EDT Pharmacy Name: [facility] - [place], [place] - [address] [phone] [facility] [phone] Pharmacy customer operations representative name: [facility] Pharmacy customer operations representative phone number: [phone] What medication are you calling in regards to: CEFDINIR What question does the pharmacy have: THE CALLER STATES THAT THE DIRECTIONS ARE FOR 5 ML TWICE A DAY THE CALLER STATES THAT THE NORMAL ADULT DOSE IS FOR 6 ML TWICE A DAY SHE WANTS TO KNOW IF THAT NEEDS TO BE CHANGED OR IF THE DOCTOR SPECIFICALLY WANTED A LOWER DOSE Who is the provider that prescribed the medication: DOCTOR BALJIT documented in this encounter Plan of Treatment Upcoming Encounters Date Type Department Care Team (Late st Contact Info) Description 03/30/2025 8:45 AM EST Office Visit [facility] [address] [place] [address] Surinder Rocha MD [address] [place] [address] 08/25/2025 8:30 AM EDT Appointment [place] [id number] documented as of this encounter Visit Diagnoses Not on filedocumented in this encounter Additional Health Concerns Assessment Noted Time PHQ-2 Depression Total Score: 1 05/20/19 24 12:36 PM EST documented as of this encounter Care Teams Lens Gauger Relationship Specialty Start Date End Date Surinder Rocha MD [address] [place] [address] PCP - General Family Medicine 10/05/19 documented as of this encounter
--- OUTSIDE RECORDS SUMMARY | 2025-03-01 18:20 | XMS_ITS | Encounter Summary ---
[facility] [address] [place] [address] Care Team Providers Care Web Content & Social Media Manager Name Role Phone Surinder Rocha MD Primary Care Provider [phone] Encounter Details Date Type Department Care Team (Late st Contact Info) Description 02/09/2025 Results Follow-Up [facility] [address] [place] [address] Surinder Rocha MD [address] [place], [place] [id number] Social History Tobacco Use Types Packs/Day Years [...] or training? Not on file Preferred Language Finnish 08/18/2023 PHQ-2 Answer Date Recorded Patient Health [...] Description 03/30/2025 8:45 AM EST Office Visit [facility] [address] [facility] [place] [address] Surinder Rocha MD [address] [place] [address] 08/25/2025 8:30 AM EDT Appointment [address] [address] documented as of this encounter Visit Diagnoses Not on filedocumented in this encounter Additional Health Concerns Assessment Noted Time PHQ-2 Depression Total Score: 1 05/20/19 24 12:36 PM EST documented as of this encounter Care Teams Web Content & Social Media Manager Relationship Specialty Start Date End Date Surinder Rocha MD [address] [place] [address] PCP - General Family Medicine 10/05/19 documented as of this encounter
--- OUTSIDE RECORDS SUMMARY | 2025-03-01 18:20 | XMS_ITS | Encounter Summary ---
[facility] [address] [place] [address] Care Team Providers Care Business Administration Instructor Name Role Phone Surinder Rocha MD Primary Care Provider [phone] Reason for Visit * Reason Onset Date Comments PAPERWORK 02/09/2025 Encounter Details Date Type Department Care Team (Late st Contact Info) Description 02/09/2025 Telephone [facility] [address] [place] [address] Surinder Rocha MD [address] [place], [place] [phone] PAPERWORK Social History Tobacco Use Types Packs/Day Years [...] or training? Not on file Preferred Language Spanish 08/18/2023 PHQ-2 Answer Date Recorded Patient Health [...] Telephone Encounter - Sandra River LPN - 02/16/2025 4:15 PM EDT Faxed 02/11 * Telephone Encounter - Regina Mcallister RegSched Rep - 02/09/2025 12:27 PM EDT Caller: Cielo Chase Relationship: Self Best call back number: [phone] What was the call regarding: REQUESTING A STATUS UPDATE ON THE PAPERWORK THAT WAS SENT OVER [facility] documented in this encounter Plan of Treatment Upcoming Encounters Date Type Department Care Team (Late st Contact Info) Description 03/30/2025 8:45 AM EST Office Visit [facility] [address] [place] [address] Surinder Rocha MD [address] [place] [address] 08/25/2025 8:30 AM EDT Appointment [address] [place] [address] documented as of this encounter Visit Diagnoses Not on filedocumented in this encounter Additional Health Concerns Assessment Noted Time PHQ-2 Depression Total Score: 1 05/20/19 24 12:36 PM EST documented as of this encounter Care Teams Business Administration Instructor Relationship Specialty Start Date End Date Surinder Rocha MD [address] [place] [address] PCP - General Family Medicine 10/05/19 documented as of this encounter
--- OUTSIDE RECORDS SUMMARY | 2025-03-01 18:21 | XMS_ITS | Encounter Summary ---
[facility] Address [address] [place] [address] Care Team Providers Care Broadcast News Producer Name Role Phone Surinder Rocha MD Primary Care Provider [phone] Reason for Visit * Reason Onset Date Comments Med Refill 11/09/2019 Encounter Details Date Type Department Care Team (Late st Contact Info) Description 11/09/2019 Refill [facility] [address] [place] [id number] January Flores DO [address] [place], [place] [id number] Adjustment disorder with anxious mood; Insomnia, unspecified [...] [facility] [address] [place] [address] Surinder Rocha MD [address] [place] [address] 08/25/2025 8:30 AM EDT Appointment [address] [address] documented as of this encounter Visit Diagnoses Diagnosis Adjustment disorder with anxious mood Adjustment disorder with anxiety Insomnia, unspecified type documented in this encounter Additional Health Concerns Infection Onset Date Last Indicated Resolved Time COVID Screen (preop/placement) 04/24/2020 04/24/2020 04/25/2020 1:35 AM EST COVID Screen (preop/placement) 08/19/2020 08/19/2020 08/19/2020 3:31 AM EDT documented as of this encounter Care Teams Broadcast News Producer Relationship Specialty Start Date End Date Surinder Rocha MD [address] [place] [address] PCP - General Family Medicine 10/05/19 documented as of this encounter
--- OUTSIDE RECORDS SUMMARY | 2025-03-01 18:21 | XMS_ITS | Encounter Summary ---
[facility] Address [address] [place] [address] Care Team Providers Care Business Process Lead Name Role Phone Surinder Rocha MD Primary Care Provider [phone] Encounter Details Date Type Department Care Team (Late st Contact Info) Description 11/25/2024 Results Follow-Up [facility] [address] [place] [address] Surinder Rocha MD [address] [place], [place] [id number] Social History Tobacco Use Types Packs/Day Years [...] or training? Not on file Preferred Language [place] Islander 08/18/2023 PHQ-2 Answer Date Recorded Patient [...] [facility] [address] [facility] [place] [address] Surinder Rocha MD [address] [place] [address] 08/25/2025 8:30 AM EDT Appointment [address] [address] documented as of this encounter Visit Diagnoses Not on filedocumented in this encounter Additional Health Concerns Assessment Noted Time PHQ-2 Depression Total Score: 1 05/20/19 24 12:36 PM EST documented as of this encounter Care Teams Business Process Lead Relationship Specialty Start Date End Date Surinder Rocha MD [address] [place] [address] PCP - General Family Medicine 10/05/19 documented as of this encounter
--- OUTSIDE RECORDS SUMMARY | 2025-03-01 18:21 | XMS_ITS | Encounter Summary ---
[facility] [address] [place] [address] Care Team Providers Care Clutch Assembler Name Role Phone Surinder Rocha MD Primary Care Provider [phone] Encounter Details Date Type Department Care Team (Latest Contact Info) Description 02/04/2025 Travel Social History Tobacco Use Types Packs/Day [...] or training? Not on file Preferred Language [place] Islander 08/18/2023 PHQ-2 Answer Date Recorded Patient [...] 8:45 AM EST Office Visit [facility] [address] [place] [address] Surinder Rocha MD [address] [place] [address] 08/25/2025 8:30 AM EDT Appointment [place] [phone] documented as of this encounter Visit Diagnoses Not on filedocumented in this encounter Additional Health Concerns Assessment Noted Time PHQ-2 Depression Total Score: 1 05/20/19 24 12:36 PM EST documented as of this encounter Care Teams Clutch Assembler Relationship Specialty Start Date End Date Surinder Rocha MD [address] [place] [address] PCP - General Family Medicine 10/05/19 documented as of this encounter
--- OUTSIDE RECORDS SUMMARY | 2025-03-01 18:21 | XMS_ITS | Clinical Summary ---
[facility] Address [address] [place] [address] Care Team Providers Care Chief Deputy Court Clerk Name Role Phone Surinder Rohca MD Primary Care Provider [phone] Allergies Active Allergy Reactions Criticality Noted Date Comments Duloxetine Hcl Swelling High 05/02/2014 Hydrocodone Bit-Homatrop Mbr Itching 024 Hydrocodone Itching 11/05/2023 Latex Hives High 07/13/2015 Pregabalin Angioedema High 06/26/2011 Medications levocetirizine (XYZAL) 5 MG tablet Take 1 tablet by mouth Every Evening. 023 Active lidocaine (LIDODERM) 5 % USE 1 PATCH EXTERNALLY EVERY 12 HOURS. WEAR FOR 12 HOURS AND THEN OFF FOR 12 HOURS 90 patch 024 Active Xiidra 5 % ophthalmic solution PLACE 1 DROP IN EACH EYE TWICE A DAY 024 Active furosemide (Lasix) 40 MG tabletIndications :Bilateral lower extremity edema 1 PO QAM PRN 30 tablet 024 Active Diclofenac Sodium 3 % gel gel APPLY 1 INCH TO AFFECTED AREA FOUR TIMES DAILY 025 Active valACYclovir (Valtrex) 1000 MG tabletIndications :HSV infection Take 1 tablet by mouth Daily. 90 tablet 1 025 Active albuterol (PROVENTIL) (2.5 MG/3ML) 0.083% nebulizer solution Take by nebulization. 025 Active escitalopram (LEXAPRO) 20 MG tabletIndications :Adjustment disorder with anxious mood TAKE 1 & 1/2 (ONE & ONE-HALF) TABLETS BY MOUTH ONCE DAILY 135 tablet 025 Active azelastine (ASTELIN) 0.1 % nasal spray Administer 2 sprays into the nostril(s) as directed by provider 2 (Two) Times a Day. Use in each nostril as directed Active pantoprazole (Protonix) 40 MG EC tabletIndications :Gastroesophageal reflux disease, unspecified whether esophagitis present Take 1 tablet by mouth 2 (Two) Times a Day. 180 tablet 1 025 Active zolpidem (AMBIEN) 10 MG tabletIndications :Insomnia, unspecified type Take 1 tablet by mouth At Night As Needed for Sleep. 90 tablet 1 025 Active buPROPion XL (Wellbutrin XL) 300 MG 24 hr tabletIndications :Adjustment disorder with anxious mood Take 1 tablet by mouth Daily. 30 tablet 5 025 Active busPIRone (BUSPAR) 30 MG tabletIndications :Adjustment disorder with anxious mood,Generalized anxiety disorder Take 1 tablet by mouth 2 (Two) Times a Day. 180 tablet 1 025 Active gabapentin (NEURONTIN) 100 MG capsuleIndication s:Idiopathic peripheral neuropathy,Bilate ral leg pain 1 PO QAM 30 capsule 5 025 Active gabapentin (NEURONTIN) 300 MG capsuleIndication s:Idiopathic peripheral neuropathy Take 1 capsule by mouth 3 (Three) Times a Day. 270 capsule 1 025 Active amitriptyline (ELAVIL) 50 MG tabletIndications :Fibromyalgia Take 1 tablet by mouth every night at bedtime. 180 tablet 2 025 Active famotidine (PEPCID) 40 MG tabletIndications :Gastroesophageal reflux disease, unspecified whether esophagitis present Take 1 tablet by mouth every night at bedtime. 90 tablet 1 025 Active buPROPion XL (Wellbutrin XL) 150 MG 24 hr tabletIndications :Moderate episode of recurrent major depressive disorder 1 PO QD with 300 mg dose for total of 450 mg daily 90 tablet 1 025 Active Plecanatide (Trulance) 3 MG tabletIndications :Chronic idiopathic constipation Take 1 tablet by mouth Daily. 30 tablet 3 025 Active Fluticasone-Salme terol (ADVAIR/WIXELA) 100-50 MCG/ACT DISKUSIndications :Moderate persistent asthma with exacerbation INHALE 1 PUFF BY MOUTH TWICE DAILY 60 each 025 Active levothyroxine (SYNTHROID, LEVOTHROID) 125 MCG tabletIndications :Acquired hypothyroidism Take 1 tablet by mouth once daily 90 tablet 025 Active prednisoLONE ODT (Orapred ODT) 15 MG disintegrating tabletIndications :Acute non-recurrent maxillary sinusitis Place 2 tablets on the tongue Daily. 10 tablet 025 Active fluticasone (FLONASE) 50 MCG/ACT nasal sprayIndications: Seasonal allergic rhinitis, unspecified trigger Administer 2 sprays into the nostril(s) as directed by provider Daily. 11 g 5 025 Active albuterol sulfate HFA 108 (90 Base) MCG/ACT inhalerIndication s:Moderate persistent asthma with exacerbation 1-2 puffs q 4-6 hours PRN 18 g 1 025 Active montelukast (SINGULAIR) 10 MG tabletIndications :Moderate persistent asthma with exacerbation TAKE 1 TABLET BY MOUTH ONCE DAILY AT NIGHT 90 tablet 025 Active promethazine (PHENERGAN) 25 MG tablet 1/2-1 po q 6 hours PRN 20 tablet 1 025 Active cefdinir (OMNICEF) 250 MG/5ML suspension Take 5 mL by mouth 2 (Two) Times a Day. 70 mL 025 Active ondansetron ODT (ZOFRAN-ODT) 4 MG disintegrating tabletIndications :Nausea DISSOLVE 1 TABLET IN MOUTH EVERY 8 HOURS NEEDED FOR NAUSEA OR VOMITING 15 tablet 023 2024 Discontinued(* Therapy completed) linaclotide (LINZESS) 290 MCG capsule capsule Take 1 capsule by mouth Daily. 024 2024 Discontinued(* Therapy completed) lubiprostone (AMITIZA) 24 MCG capsule Take 1 capsule by mouth 2 (Two) Times a Day With Meals. 024 2024 Discontinued(* Therapy completed) pseudoephedrine (SUDAFED) 120 MG 12 hr tablet 1 PO BID PRN congestion 60 tablet 3 024 2024 Discontinued(* Therapy completed) meloxicam (MOBIC) 7.5 MG tablet TAKE 1 TO 2 TABLETS BY MOUTH ONCE DAILY WITH FOOD NEEDED SPARINGLY 025 2024 Discontinued(* Therapy completed) levothyroxine (SYNTHROID, LEVOTHROID) 125 MCG tabletIndications :Acquired hypothyroidism Take 1 tablet by mouth Daily. 90 tablet 025 2024 Discontinued montelukast (SINGULAIR) 10 MG tabletIndications :Moderate persistent asthma with exacerbation Take 1 tablet by mouth Every Night. 90 tablet 2024 Discontinued promethazine-dext romethorphan (PROMETHAZINE-DM) 6.25-15 MG/5ML syrup Take 5 mL by mouth 4 (Four) Times a Day As Needed for Cough. 240 mL 2024 Discontinued(R eorder) fluticasone (FLONASE) 50 MCG/ACT nasal sprayIndications: Seasonal allergic rhinitis, unspecified trigger Administer 2 sprays into the nostril(s) as directed by provider Daily. 11 g 5 2024 Discontinued(R eorder) albuterol sulfate HFA 108 (90 Base) MCG/ACT inhalerIndication s:Moderate persistent asthma with exacerbation 1-2 puffs q 4-6 hours PRN 18 g 1 2024 Discontinued(R eorder) Fluticasone-Salme terol (ADVAIR/WIXELA) 100-50 MCG/ACT DISKUSIndications :Moderate persistent asthma with exacerbation INHALE 1 DOSE BY MOUTH TWICE DAILY 60 each 025 2024 Discontinued Chlorcyclizine-Ps eudoephed 25-60 MG tabletIndications :Acute URI 1/2-1 po q 8 hours PRN 30 tablet 1 025 2024 Discontinued(* Therapy completed) promethazine-dext romethorphan (PROMETHAZINE-DM) 6.25-15 MG/5ML syrup Take 5 mL by mouth 4 (Four) Times a Day As Needed for Cough. 240 mL 10/03/2 025 2024 Discontinued amoxicillin-clavu lanate (Augmentin ES-600) 600-42.9 MG/5ML suspensionIndicat ions:Acute non-recurrent maxillary sinusitis 7.5 mL PO BID 105 mL 025 2024 Discontinued Hospital, Clinic, or Other Facility Administered Medication Ordered Dose Route Frequency Start Date End Date Status lidocaine (XYLOCAINE) 1 % injection 5 mL 5 mL IJ Once 02/23/2025 02/23/2025 Ended Active Problems Problem Noted Date Diagnosed Date [...] Encounters Date Type Department Care Team Description 03/01/2025 [facility] [address] [facility] [place] [address] Surinder Rocha MD PHARMACY CALLS 02/25/2025 [facility] [address] [facility] [place] [address] Surinder Rocha MD New Med Request 02/25/2025 Telephone [facility] [address] [address] Rosalba Irizarry RN 02/24/2025 [facility] [address] [facility] [facility] [place] [address] Surinder Rocha MD Med Management 02/24/2025 [facility] [address] [address] [place] [address] Rosalba Irizarry RN 02/23/2025 9:26 AM EDT - 02/23/2025 11:59 PM EDT Hospital Encounter [facility] [address] [facility] [address] [place] [address] Abnormal mammogram Discharge Disposition: Home or Self Care 02/23/2025 9:21 AM EDT - 02/23/2025 11:59 PM EDT Hospital Encounter [facility] [address] [facility] [address] [address] [place] [address] Abnormal mammogram Discharge Disposition: Home or Self Care 02/22/2025 10:45 AM EDT Office Visit [facility] [address] [place] [address] Surinder Rocha MD Dysuria (Primary Dx); Acute non-recurrent maxillary sinusitis; Seasonal allergic rhinitis, unspecified trigger; Moderate persistent asthma with exacerbation 02/22/2025 Refill [facility] [address] [place] [place] [address] Jeanette Hooks PA-C Moderate persistent asthma with exacerbation 02/22/2025 Travel 02/15/2025 Results Follow-Up [facility] CANCER RISK ASSESSMENT [address] [place] [address] Low MoorCa 02/09/2025 Results Follow-Up [facility] [address] [place] [address] Surinder Rocha MD 02/09/2025 Telephone [facility] [address] [place] [address] Surinder Rocha MD PAPERWORK 02/08/2025 10:51 AM EDT - 02/08/2025 11:59 PM EDT Hospital Encounter [facility] [place] [address] [facility] [address] [place] [address] Abnormal mammogram Discharge Disposition: Home or Self Care 02/08/2025 7:55 AM EDT - 02/08/2025 11:59 PM EDT Hospital Encounter [facility] [place] [address] [facility] [address] [place] [address] Abnormal mammogram Discharge Disposition: Home or Self Care 02/08/2025 Travel 02/07/2025 Refill [facility] [address] [place] [address] Jeanette Hooks PA-C Moderate persistent asthma with exacerbation; Acquired hypothyroidism 02/04/2025 9:00 AM EDT - 02/04/2025 11:59 PM EDT Hospital Encounter [facility] [address] [place] [address] Surinder Rocha MD Right foot pain; Left foot pain Discharge Disposition: Home or Self Care 02/04/2025 8:30 AM EDT Office Visit [facility] [address] [place] [address] Surinder Rocha MD Fall in home, initial encounter (Primary Dx); Right foot pain; Left foot pain; Acute URI; Chronic idiopathic constipation; Poor balance 02/04/2025 Travel 12/03/2024 Telephone [facility] [address] [place] [address] Surinder Rocha MD PAPERWORK REQUEST 11/30/2024 Telephone [facility] [address] [place] [address] Surinder Rocha MD PHARMACY CALLS 11/30/2024 Refill [facility] [address] [place] [address] Jeanette Hooks PA-C Moderate persistent asthma with exacerbation from Last 3 Months Immunizations Immunization Administration [...] or training? Not on file Preferred Language Tanzanian 08/18/2023 PHQ-2 Answer Date Recorded Patient Health [...] Mass Index 41.97 02/22/2025 10:35 AM EDT Plan of Treatment Upcoming Encounters Date Type Department Care Team (Late st Contact Info) Description 03/30/2025 8:45 AM EST Office Visit [facility] [address] [address] Surinder Rocha MD [address] [address] 08/25/2025 8:30 AM EDT Appointment [facility] [address] [place] [address] Health Maintenance Due Date Last Done Comments Annual Gynecologic Pelvic an d Breast Exam 1964 COLOGUARD 2009 COLON CANCER SCREENING 5 YEA R SIGMOIDOSCOPY 2009 CT COLONOGRAPHY 2009 FECAL OCCULT BLOOD TEST 2009 FIT Testing (1 year) 2009 ANNUAL PHYSICAL 09/27/2015 LIPID PANEL 04/07/2025 04/07/2024, 11/2023, 07/31/2022, Additional history exists MAMMOGRAM 02/08/2027 02/08/2025, 11/04, 11/19/2023, Additional history exists COLONOSCOPY 03/31/2033 03/31/2023, 03/06, 10/29/2016, Additional history exists COLORECTAL CANCER SCREENING 03/31/2033 TDAP/TD VACCINES (3 - Td or Tdap) 01/10/2035 025, 04/09/2016 ZOSTER VACCINE Completed 09/27/2017, 07/29/2017 HEPATITIS C SCREENING Completed 04/14/2019 , 06/03/2016, 06/03/2016, Additional history exists Pneumococcal Vaccine 50+ Completed 10/09/2021 INFLUENZA VACCINE Completed 02/07/2025, , 12/06/2023, Additional history exists Procedures Procedure Name Priority Date/Time Associated Diagnosis Comments US FINE NEEDLE ASPIRATION BX 1ST LESION Routine 02/23/2025 11:04 AM EDT Abnormal mammogram MAMMO POST DEVICE PLACEMENT RIGHT Routine 02/23/2025 11:03 AM EDT Abnormal mammogram NON-PROGRAM RESEARCH SPECIALIST CYTOLOGY[facility] (PET[facility], [facility], [facility], [place]) Routine 02/23/2025 10:43 AM EDT URINE CULTURE Routine 02/22/2025 10:53 AM EDT Dysuria POCT URINALYSIS DIPSTICK, AUTOMATED Routine 02/22/2025 10:42 AM EDT Dysuria AMBRY GENETIC ASSESSMENT Routine 02/15/2025 9:55 AM EDT US BREAST BILATERAL LIMITED Routine 02/08/2025 12:07 PM EDT Abnormal mammogram MAMMO DIAGNOSTIC DIGITAL TOMOSYNTHESIS BILATERAL W CAD Routine 02/08/2025 10:54 AM EDT Abnormal mammogram XR FOOT 3+ VW BILATERAL Routine 02/04/2025 9:23 AM EDT Right foot pain Left foot pain LIPID PANEL Routine 04/07/2024 10:43 AM EST Elevated cholesterol SCANNED - INFLUENZA 12/06/2023 SCANNED - COLONOSCOPY 03/31/2023 HEPATITIS C ANTIBODY Routine 04/14/2019 10:48 AM EST Possible exposure to STD from Last 3 Months or Most Recently Relevant to Health Maintenance Results * US Fine Needle Aspiration BX [...] MD on us Nallely Handley MD IMG US ORDERABLES Final Result * Mammo Post Device Placement Right (02/23/2025 [...] Handley MD on us Nallely Handley MD [facility] MAMMOGRAPHY ORDERABLES Fin al Result * NON-PROGRAM RESEARCH SPECIALIST CYTOLOGY[facility] (PETRA,COR,MAD,[facility]) (02/23/2025 10:43 [...] CD19, CD20, CD38, CD45, CD56, CD57, CD123, [place], and [place]. Interpretation performed by Dr. Lin. [...] Result [facility]
[address] [place] [address], * Urine Culture - Urine, Urine, Clean Catch (02/22/2025 10:53 AM EDT) Urine Culture Final report [facility] Result 1 Comment [facility] Comment: Mixed urogenital cely Less than 10,000 colonies/mL Urine Urine specimen obtained by clean catch procedure / Unknown 02/22/2025 10:53 AM EDT 02/22/2025 Comment: Narrative [facility]) - 02/24/2025 3:07 AM EDT Performed at: - [address] [id number] Hot Dip Plater: Vernon Garcia PhD, Phone: [phone] Surinder Rocha MD MICROBIOLOGY - GENERAL ORDERABL ES Final Result Performing Organization Address [facility]/ZIP Co de Phone Number [facility] ([facility]) [address] [place] [address], [place] [phone] [facility] [address] [place], [place] [id number], * POCT urinalysis dipstick, automated (02/22/2025 10:42 AM EDT) Color Yellow Yellow, Straw, Dark Yellow, Kaila [facility] Clarity, UA Clear Clear [facility] Specific [place] 1.010 1.005 - 1.030 [facility] pH, Urine 6.0 5.0 - 8.0 [facility] Leukocytes Negative Negative [facility] Nitrite, UA Negative Negative [facility] Protein, POC Negative Negative mg/dL [facility] Glucose, UA Negative Negative mg/dL [facility] Ketones, UA Negative Negative [facility] Urobilinogen, UA Normal Normal, 0.2 E.U./dL [facility] Bilirubin Negative Negative [facility] Blood, UA Negative Negative [facility] Lot Number [id number] [facility] Expiration Date 05-27-2026 [facility] Urine 02/22/2025 10:4 2 AM EDT us Surinder Rocha MD POINT OF CARE TEST ORDERABLES F inal Result [facility]
[address] [place] [address], [place] [phone] * (ABNORMAL) [facility] GENETIC RISK ASSESSMENT QUESTIONNAIRE - , (02/15/2025 9:55 AM EDT) Pathologist [facility] Pareshemmanuellibra 13.4 [facility] Your[employer] NCCN NCCN met(A) [facility] Comment:High Risk Cancer Ris k Assessment 02/15/2025 9:55 AM EDT us Surinder Rocha MD GENETIC TESTING Final Result [facility]
[address] [place] [address], [place] [phone] * (ABNORMAL) US Breast Bilateral Limited (02/08/2025 [...] measuring 0.4 cm. us Nallely Handley MD [facility] US ORDERABLES Final Result * (ABNORMAL) Mammo Diagnostic Digital Tomosynthesis Bilateral [...] MD IMG MAMMOGRAPHY ORDERABLES Patience l Result * XR Foot 3+ View Bilateral (02/04/2025 9:23 AM EDT) Anatomical Region Laterality Modality Lower Extremities, Foot Bilateral Radiogra phic Imaging 02/09/2025 11:2 6 AM EDT Impressions 02/09/2025 11:30 AM EDT Impression: 1. No acute osseous findings. 2. No signs of crystalline or inflammatory arthropathy. 3. 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 4. Achilles and plantar spurs bilaterally. Electronically Signed: Oscar Hare MD 02/09/2025 11:30 AM EDT Workstation ID: [id number] Narrative 02/09/2025 11:30 AM EDT XR FOOT [...] MD 02/09/2025 11:30 AM EDT Workstation ID: [id number] us Surinder Rocha MD IMG DIAGNOSTIC IMAGING ORDERABL ES Final Result * (ABNORMAL) Lipid Panel (04/07/2024 10:43 AM EST) Total Cholesterol 170 0 - 200 mg/dL [...] 10:4 3 AM EST 04/07/2024 Narrative [facility] (AMBULATORY) - 2024 3:09 AM EST Performed at: [address] [place] [id number] Hot Dip Plater: Forrest Box MD, Phone: [phone] Patient Fasting: Y Surinder Rocha MD LAB BLOOD ORDERABLES Final Resu lt [facility] ([facility]) [address] [place] [address], [facility] [address] [place] [address], [place] [phone] * IMAGING SCANNED (12/06/2023) [facility] CH[facility] TABS Final Re sult * SCANNED - COLONOSCOPY (03/31/2023) Surinder Rocha MD CHART REVIEW TABS Final Resu lt * Hepatitis C Antibody (04/14/2019 10:48 AM EST) Hep C Virus Ab 0.3 0.0 - 0.9 s/co ratio [facility] Comment: Negative: < 0.8 Indeterminate: 0.8 - 0.9 Positive: > 0.9 The CDC recommends that a positive HCV antibody result be followed up with a HCV Nucleic Acid Amplification test (630483). Blood 04/14/2019 10:4 8 AM EST 04/14/2019 Narrative [facility] (AMBULATORY) - 04/17/2019 7:08 AM EST Performed at: [address] - [address] [id number] Hot Dip Plater: Vernon Garcia PhD, Phone: [phone] Surinder Rocha MD LAB BLOOD ORDERABLES Final Resu lt Performing Organization Address City/State/[facility] Co de Phone Number [facility] ([facility]BUL[facility]ORY) [address] [place] [address], [facility] [address] [place] [address], from Last 3 Months or Most Recently Relevant to Health Maintenance Insurance [employer] Advance Directives * CPR (Attempt to Resuscitate) [...] Of Support Discussed With: Patient Care Teams Chief Deputy Court Clerk Relationship Specialty Start Date End Date Surinder Rocha MD [facility] [place] [address] PCP - General Family Medicine 10/05/19
--- OUTSIDE RECORDS SUMMARY | 2025-03-01 18:21 | XMS_ITS | Encounter Summary ---
[facility] Address [address] [place] [address] Care Team Providers Care Director Of Digital Marketing Name Role Phone Surinder Rocha MD Primary Care Provider [phone] Encounter Details Date Type Department Care Team (Late st Contact Info) Description 09/09/2024 Results Follow-Up [facility] [address] [place] [address] Surinder Rocha MD [address] [place], [place] [id number] Social History Tobacco Use Types Packs/Day Years [...] or training? Not on file Preferred Language Yemeni 08/18/2023 PHQ-2 Answer Date Recorded Patient Health [...] Description 03/30/2025 8:45 AM EST Office Visit [facility] [address] [facility] [place] [address] Surinder Rocha MD [address] [place] [address] 08/25/2025 8:30 AM EDT Appointment [address] [address] documented as of this encounter Visit Diagnoses Not on filedocumented in this encounter Additional Health Concerns Assessment Noted Time PHQ-2 Depression Total Score: 1 05/20/19 24 12:36 PM EST documented as of this encounter Care Teams Director Of Digital Marketing Relationship Specialty Start Date End Date Surinder Rocha MD [address] [place] [address] PCP - General Family Medicine 10/05/19 documented as of this encounter
--- OUTSIDE RECORDS SUMMARY | 2025-03-01 18:21 | XMS_ITS | Encounter Summary ---
[facility] Address [address] [place] [address] Care Team Providers Care Financial Internship Name Role Phone Surinder Rocha MD Primary Care Provider [phone] Reason for Visit * Reason Comments Med Refill Encounter Details Date Type Department Care Team (Late st Contact Info) Description 06/15/2020 Refill [facility] [address] [place] [address] Surinder Rocha MD [address] [place], [place] [id number] Idiopathic peripheral neuropathy Social History Tobacco Use [...] [facility] [address] [place] [phone] Surinder Rocha MD [address] [place] [address] 08/25/2025 8:30 AM EDT Appointment [place] [phone] documented as of this encounter Visit Diagnoses Diagnosis Idiopathic peripheral neuropathy Unspecified hereditary and idiopathic peripheral neuropathy documented in this encounter Additional Health Concerns Infection Onset Date Last Indicated Resolved Time COVID Screen (preop/placement) 08/19/2020 08/19/2020 08/19/2020 3:31 AM EDT documented as of this encounter Care Teams Financial Internship Relationship Specialty Start Date End Date Surinder Rocha MD [address] [place] [address] PCP - General Family Medicine 10/05/19 documented as of this encounter
--- OUTSIDE RECORDS SUMMARY | 2025-03-01 18:21 | XMS_ITS | Clinical Summary ---
Author Organization [facility] Address [address] [place] [address] Care Team Providers Care Network Support Administrator Name Role Phone Surinder Rocha MD Primary [...] complete this topic Insurance ANTH Care Teams Network Support Administrator Relationship Specialty Start Date End Date Surinder Rocha MD [address] [facility] [place] [address] PCP - General Family Medicine 08/02/22
--- OUTSIDE RECORDS SUMMARY | 2025-03-01 18:21 | XMS_ITS | Data Portability ---
Author Organization [facility] CHRYSTAL Pfeiffer DEPUTY CLOSED Address [address] [place] [address] Care Team Providers Care Account Underwriter Name Role Phone BALJIT DAVID Primary Care Provider Assessment No assessment recorded. Plan of Treatment Reminders Order Date Submit Date Provider Last Modified By Organization Details Last Modified Time Details Appointments None recorded. Lab None recorded. Referral None recorded. Procedures None recorded. Surgeries None recorded. Imaging None recorded. Medication Orders betametha sone valerate 0.1 % topical ointment 2021 022 [facility] [place], [address], 2 12:06:15 Compound Premarin Nasal Alligator 2019 020 INTERFACE [employer], [address], [place], [address], 0 13:46:10 meclizine 25 mg chewable tablet 2019 020 INTERFACE [facility] [address] [place], [address], 0 13:43:15 Pepcid 20 mg tablet 2018 019 [email or web address] [facility] [address] [place], [address], 9 09:40:43 Bactrim DS 800 mg-160 mg tablet 2018 019 INTERFACE [facility] [address] [place], [address], 9 08:44:50 Xyzal 5 mg tablet 2018 019 INTERFACE [facility] [address] [place], [address], 9 08:44:46 Patient TargetsNo targets recorded. Patient Instructions Encounter Date Encounter Id Patient Instructions Last Modified By Organization Details Last Modified Time 03/15/2019 [id number] 1. Bactrim DS 800-160mg PO BID for 5 days (extended) 2. Continue Mupirocin ointment but reduce to QD 3. Okay to try her Valacyclovir as directed on prescription she has used for past cold sores 4. Continue NS spray to bilateral nares BID 5. Rx - Xyzal 5mg PO QD 6. Auto-inflate the ears using the modified valsalva maneuver 10 times daily 7. F/U in 1-[address] Liang for continued monitoring. She may need potential food allergy testing to R/O food allergy reaction, or referral for dermatology evaluation if persist. [facility] Garth mkuhl Not available 03/15/2019 08:53:47 Cielo has had improvement overall with her nasal vestibulitis with upper lip and facial cellulitis but not completely resolved. There is mild erythema today of the area, mild nasal labial fold edema, but her internal nasal examination and upper lip examination are clear. I would like to extend the Bactrim for a few more days and keep her on the saline spray and mupirocin ointment. This is improving and I believe will clear with time, but if not may be a good candidate for food allergy testing or dermatology evaluation. She does have a previous prescription for as needed Valacyclovir for cold sores that she has had to use in the past, but has not used any during this period; I do no see a problem with her trialing this for a few days as her prescription directs. Ms. Chase is continuing to have bilateral ear fullness with lightheadedness. I believe there may be some middle ear congestion or eustachian tube dysfunction. Her tympanometry was normal at her last visit and the ears are clear today, but she does feel as if the ears clear if she auto-inflates. So I will have her auto-inflate her ears multiple times through the day, but will start her on Xyzal for her history of chronic posterior rhinorrhea. Given her issues with the vestibulitis and burning of the nose, I will avoid topical steroid use first and see how she does with the antihistamine. She will follow up in a week or two with Dr. Liang for continued monitoring. [facility] Not available 03/15/2019 09:01:36 04/07/2019 [id number] 1. Laryngoscopy performed ; clinical photos obtained. Full risks, complications, and benefits of operative versus non-operative intervention have been thoroughly discussed. Understanding was expressed, informed consent given, and we will proceed with the discussed operative treatment plan. There were no questions for me at the end of the office visit. 2. RX-Pepcid 20mg- take 1 po qd 3. Continue with GERD precautions 4. Continue using Mupirocin ointment on nasal ulcer 5. Barium esophogram ordered 6. F/u with barium esophogram results [email or web address] Not available 04/07/2019 08:47:51 Her nasal vestibulitis and surrounding facial cellulitis have almost completely resolved. She still has a very small shallow ulcer just below her nasal columella and she will continue to apply topical Bactroban ointment to that area until it heals. Her eczematous otitis externa is currently well treated. She tells me about new onset severe migraine and workup for that is in progress. She has chronic dysphasia that we are discussing today for the first time. She has globus symptoms on the right and has dysphasia to most foods. She has history of GERD that I think is poorly controlled. Fiberoptic exam of her nasopharynx hypopharynx and larynx shows findings consistent with GERD. No other abnormalities seen. She will continue her Protonix and I have added nighttime Pepcid. I am also scheduling a barium esophagram and then I will see her back in follow-up. [email or web address] Not available 04/07/2019 08:52:06 04/20/2020 [id number] dizziness: care instructions [email or web address] Not available 04/20/2020 13:43:01 It was a dante van seeing this patient in followup today. LEFT CERUMEN CLEANED FROM TM TODAY. HISTORY AND EXAM SUGGEST POSSIBLE BILATERAL PATULOUS EUSTACHIAN TUBE, ALSO DYSEQUILIBRIUM WITH NORMAL DIOGENES HALLPIKES TODAY. AUDIO OBTAINED AND REVIEWED. Going forward, I recommend MECLIZINE FOR DIZZINESS, PREMARIN NASAL SPRAY FOR SUSPECTED PATULOUS EUSTACHIAN TUBE BILATERAL. We reviewed the pertinent anatomy and pathophysiology and all questions were answered. 04/07/20 DR. LIANG: Her nasal vestibulitis and surrounding facial cellulitis have almost completely resolved. She still has a very small shallow ulcer just below her nasal columella and she will continue to apply topical Bactroban ointment to that area until it heals. Her eczematous otitis externa is currently well treated. She tells me about new onset severe migraine and workup for that is in progress. She has chronic dysphasia that we are discussing today for the first time. She has globus symptoms on the right and has dysphasia to most foods. She has history of GERD that I think is poorly controlled. Fiberoptic exam of her nasopharynx hypopharynx and larynx shows findings consistent with GERD. No other abnormalities seen. She will continue her Protonix and I have added nighttime Pepcid. I am also scheduling a barium esophagram and then I will see her back in follow-up. [email or web address] Not available 04/20/2020 13:33:31 04/20/2020 [id number] dizziness: care instructions lexy Not available 04/20/2020 13:16:46 hearing loss: ca re instructions lexy Not available 04/20/2020 13:16:47 11/07/2021 [id number] It was a dante van seeing this patient in followup today. Patient reports: ear pain, intermittent drainage ongoing for a long time. She has some crusting in her ears. Has some sinus pressure, no recent infections. Examination/workup suggests: Eczematous ear canals with left TM retraction. We discussed my recommendation for using over the counter antihistamine and saline spray in her nose. RX: Betamethasone Valerate ointment prescribed to use in both ears once daily for 1-2 weeks ; then can use it as needed. If sinus symptoms persist, can consider CT scan of sinuses. Recheck 3-4 months at [facility] office We reviewed the pertinent anatomy and pathophysiology and all questions were answered. [email or web address] Not available 11/08/2021 17:08:07 Reason for Referral None Reported. Results Created Date Observation Date Name Description Value Unit Range Abnormal Flag Note LastModifiedBy Organization Detail LastModifiedTime 04/20/20 20 04/20/2020 audio gram No observ ation record ed. BARCODE Not Available 2019 14:11:11 11/12/19 24 02/10/2023 CT, neck, w/ contr ast No observ ation record ed. [email or web address] Not Available 2023 11:12:13 11/12/19 24 01/08/2023 MRI, lumba r spine , w/o contr ast No observ ation record ed. [email or web address] Not Available 2023 11:13:29 11/12/19 24 12/28/2022 CT, lumba r spine , w/o contr ast No observ ation record ed. [email or web address] Not Available 2023 11:14:17 12/08/19 24 01/08/2023 MRI, lumba r spine , w/o contr ast No observ ation record ed. [email or web address] [facility] [address] [address], [place], [address], 12/09/2023 16:26:50 Result Notes None recorded. Problems Name Problem SNOMED Code Status Onset Date Resolution Date Notes Provider Name and Address Organization Details Recorded Time Allergic rhinitis 01850981 Active 2015 From Automated Load;Provi rin: Tamar Liang;St atus: Active Not Available [facility] 6 05:46:04 Deviated nasal septum 973773146 Active 2015 From Automated Load;Provi rin: Tamar Liang;St atus: Active Not Available [facility] 6 05:46:04 Dizziness and giddiness 689929396 Active 2015 From Automated Load;Provi rin: Tamar Liang;St atus: Active Not Available [facility] 6 05:46:04 Sensorine ural hearing loss 57535727 Active 2015 Provider: Tamar Liang; atus: Active Not Available [facility] 6 05:46:04 Sensorine ural hearing loss of bilateral ears 100487774 Active 2015 From Automated Load;Provi rin: Tamar Liang; atus: Active Not Available [facility] 6 05:46:04 Chronic cystitis 45150037 Active 2015 From Automated Load;Provi rin: Gary Toro Jr;Sta tus: Active Not Available [facility] 6 05:46:04 Dysuria 38632697 Active 2015 From Automated Load;Provi rin: Gary Toro Jr;Sta tus: Active Not Available [facility] 6 05:46:04 Increased frequency of urination 618123886 Active 2015 From Automated Load;Provi rin: Gary Toro Jr;Sta tus: Active Not Available [facility] 6 05:46:04 Problem Notes None recorded. Procedures Surgical History Date Name Laterality Status Provider Name and Address Organization Details Recorded Time 11/08/19 22 Binocular Microscopy completed Janell Cavanaugh [facility] 11/07/2021 11:38:25 09/15/19 21 Binocular Microscopy cancelled DAKOTA CHOU MD [facility] [place], [address], [facility] 09/13/2020 17:05:00 09/15/19 21 Cerumen removal - Instruments, Unilateral cancelled DAKOTA CHOU MD [facility] [place], [address], [facility] 09/13/2020 17:05:00 04/20/20 20 Tympanogram completed UGO SURESH AUD [address] [place], [address], [facility] 04/20/2020 13:15:51 04/20/20 20 Audiogram completed UGO SURESH, AUD [address] [place], [address], [facility] 04/20/2020 13:15:49 04/20/20 20 Diogenes-Hallpike completed UGO SURESH, AUD [address] [place], [address], [facility] 04/20/2020 13:16:31 04/20/20 20 Binocular Microscopy completed DAKOTA CHOU MD [address] [place], [address], [facility] 04/20/2020 13:30:50 04/20/20 20 Cerumen removal - Instruments, Unilateral completed DAKOTA CHOU MD [address] [place], [address], [facility] 04/20/2020 13:30:12 04/07/20 19 Laryngoscopy Flex completed Loyda Nicolas [facility] 04/07/2019 08:45:25 03/05/20 19 Tympanogram completed UGO SURESH, AUD [address] [place], [address], [facility] 03/05/2019 15:18:06 03/05/20 19 Audiogram completed UGO SURESH, AUD [address] [place], [address], [facility] 03/05/2019 15:18:04 09/26/19 19 Ears/Nose/Throat Surgery completed Lidia Robison [facility] 03/05/2019 14:57:32 Joint Replacement completed Wanda Vega [facility] 08/06/2017 09:52:17 Other completed Wanda Vega [facility] 08/06/2017 09:52:47 [facility] 03/05/2019 14:47:12 [facility]lectomy [facility] 03/05/2019 14:47:35 Imaging Results None recorded. Procedure Notes None recorded. Medical Equipment None Reported. Allergies Allergen ID Allergen Name Allergen Category Reaction Reaction Severity Criticality Documentation Date Start Date Code Code System Note Provider Name and Address Organization Details Recorded Time [id number] Cymbalta medicatio n Not available Not available Not available 03/28/20162013 21128 4 RxNorm Comme nt: Creat ed By: Butle r [place] e;Cre ated Date: 05/02 9:21: 34 AM; Not Available [facility] 6 12:43:11 [id number] Lyrica medicatio n other Not available Not available 03/29/20162011 40896 1 RxNorm React ion: LANG LONGORIA ING; Comme nt: Creat ed By: Jerica Peoples sa;Cr eated Date: 2011 7:30: 01 AM; Not Available [facility] 6 04:38:16 [id number] latex environme nt,medica tion Not available Not available Not available 03/29/20162010 76974 91 RxNorm Comme nt: Creat ed By: Delfina Siddiqi is;Cr eated Date: 2010 12:00 :48 PM; Not Available [facility] 6 05:28:45 Medications Name Sig Start Date Stop Date Status Note LastModified by Organization Details LastModified Time binaxnow covid-19 ag card home test kit active Not Available Not Available Not Available eq sinus 12-hour 120mg tab TAKE 1 TABLET BY MOUTH TWICE DAILY NEEDED FOR CONGESTI ON active Not Available Not Available No t Available Compound Premarin Nasal Alligator 25mg/30m l- 3 sprays in affected nostril 3x daily FOR 3 MONTHS. Dispense : 1- 30ml bottle 2019 active Not Available Not Available Not Avai lable allergy/co ng relf d 24h er tab TAKE 1 TABLET BY MOUTH ONCE DAILY active Not Available Not Available No t Available cyclobenza charla 10 mg tablet TAKE 1 TABLET BY MOUTH THREE TIMES DAILY NEEDED FOR MUSCLE SPASM active Not Available Not Available No t Available amoxicilli n 500 mg capsule TAKE 4 CAPSULES BY MOUTH A SINGLE DOSE ONE HOUR BEFORE DENTAL APPOINTM ENT active Not Available Not Available No t Available furosemide 40 mg tablet TAKE 1 TABLET BY MOUTH IN THE MORNING NEEDED active Not Available Not Available No t Available fluconazol e 100 mg tablet TAKE 1 TABLET TODAY. THEN TAKE THE SECOND TABLET ON DAY 7 active Not Available Not Available No t Available betamethas one valerate 0.1 % topical ointment APPLY A THIN LAYER TO THE AFFECTED EARS BY TOPICAL ROUTE ONCE DAILY X 1-2 WEEKS, THEN USE NEEDED active Not Available Not Available No t Available bupropion HCl SR 150 mg tablet,12 hr sustained- release TAKE 1 TABLET BY MOUTH TWICE DAILY active Not Available Not Available No t Available promethazi ne-DM 6.25 mg-15 mg/5 mL oral syrup TAKE 5 ML BY MOUTH 4 TIMES DAILY NEEDED FOR COUGH active Not Available Not Available No t Available azelastine 0.05 % eye drops INSTILL 1 DROP INTO AFFECTED EYE(S) TWICE DAILY DIRECTED active Not Available Not Available No t Available nystatin 100,000 unit/mL oral suspension SWISH AND SPIT 5 ML BY MOUTH 4 TIMES DAILY active Not Available Not Available No t Available nitrofuran toin macrocryst al 50 mg capsule 03/05 completed Not Available Not Available Not Available doxycyclin e hyclate 100 mg capsule TAKE 1 CAPSULE BY MOUTH TWICE DAILY FOR 7 DAYS active Not Available Not Available No t Available albuterol sulfate 2.5 mg/3 mL (0.083 %) solution for nebulizati on USE 3 ML IN NEBULIZE R EVERY 4 HOURS NEEDED FOR WHEEZING FOR SHORTNES S OF BREATH active Not Available Not Available No t Available atorvastat in 10 mg tablet active Not Available Not Available Not Available oxybutynin chloride ER 10 mg tablet,ext ended release 24 hr 08/06 completed Not Available Not Available Not Available azithromyc in 250 mg tablet TAKE 2 TABLETS BY MOUTH ON DAY 1, AND THEN TAKE 1 TABLET BY MOUTH ONCE A DAY ON DAY 2 THROUGH DAY 5 active Not Available Not Available No t Available tizanidine 4 mg tablet active Not Available Not Available Not Available fluconazol e 150 mg tablet TAKE ONE TABLET BY MOUTH NOW THEN ONE IN THREE DAYS AND ONE IN SEVEN DAYS active Not Available Not Available No t Available benzonatat e 200 mg capsule TAKE 1 CAPSULE BY MOUTH THREE TIMES DAILY NEEDED FOR COUGH . DO NOT EXCEED 3 PER 24 HOURS active Not Available Not Available No t Available valacyclov ir 1 gram tablet 03/05 completed Not Available Not Available Not Available sumatripta n 100 mg tablet TAKE ONE TABLET BY MOUTH AT ONSET OF HEADACHE , MAY REPEAT DOSE ONE TIME IN 2 HOURS IF HEADACHE NOT RELIEVED active Not Available Not Available No t Available hydrocodon e 5 mg-acetami nophen 325 mg tablet TAKE 1 TABLET BY MOUTH EVERY 8 HOURS NEEDED FOR SEVERE PAIN active Not Available Not Available No t Available Nystop 100,000 unit/gram topical powder 03/05 completed Not Available Not Available Not Available fluconazol e 200 mg tablet TAKE ONE TABLET BY MOUTH NOW, OK TO REPEAT IN 3 DAYS IF NEEDED active Not Available Not Available No t Available sucralfate 1 gram tablet TAKE 1 TABLET BY MOUTH TWICE DAILY FOR 30 DAYS active Not Available Not Available No t Available phenazopyr idine 200 mg tablet TAKE 1 TABLET BY MOUTH THREE TIMES DAILY NEEDED FOR BLADDER SPASMS active Not Available Not Available No t Available sumatripta n 25 mg tablet TAKE ONE TABLET BY MOUTH WITH FLUIDS EARLY POSSIBLE AFTER ONSET OF MIGRAINE . IF SYMPTOMS PERSIST A SECOND DOSE MAY BE TAKEN IN 2 HOURS active Not Available Not Available No t Available ondansetro n HCl 4 mg tablet TAKE 1 TABLET BY MOUTH EVERY 6 HOURS NEEDED FOR NAUSEA AND FOR VOMITING active Not Available Not Available No t Available famotidine 40 mg tablet TAKE 1 TABLET BY MOUTH EVERY NIGHT AT BEDTIME active Not Available Not Available No t Available prednisone 20 mg tablet TAKE 2 TABLETS BY MOUTH ONCE DAILY IN THE MORNING active Not Available Not Available No t Available prednisone 5 mg tablet 03/05 completed Not Available Not Available Not Available sumatripta n 50 mg tablet TAKE ONE TO TWO TABLETS BY MOUTH AT ONSET OF HEADACHE . MAY REPEAT DOSE ONE TIME IN 2 HOURS IF HEADACHE NOT RELIEVED active Not Available Not Available No t Available topiramate 25 mg tablet TAKE 1 TABLET BY MOUTH TWICE DAILY active Not Available Not Available No t Available metronidaz ole 500 mg tablet 08/06 completed Not Available Not Available Not Available hydroxyzin e HCl 50 mg tablet active Not Available Not Available No t Available phentermin e 37.5 mg tablet TAKE 1 TABLET BY MOUTH ONCE DAILY IN THE MORNING BEFORE BREAKFAS T active Not Available Not Available No t Available valacyclov ir 500 mg tablet TAKE 4 TABLETS BY MOUTH ONCE A DAY AT FIRST SIGN OF ATTACK AND THEN 4 TABS 12 HOURS LATER active Not Available Not Available No t Available ciprofloxa fely 500 mg tablet TAKE 1 TABLET BY MOUTH TWICE DAILY active Not Available Not Available No t Available sulfametho xazole 800 mg-trimeth oprim 160 mg tablet TAKE 1 TABLET BY MOUTH TWICE DAILY active Not Available Not Available No t Available tramadol 50 mg tablet TAKE 1 TABLET BY MOUTH EVERY 12 HOURS NEEDED FOR MODERATE PAIN active Not Available Not Available No t Available amitriptyl ine 50 mg tablet TAKE 1 TABLET BY MOUTH EVERY DAY AT BEDTIME active Not Available Not Available No t Available triamcinol one acetonide 0.1 % topical cream 08/06 completed Not Available Not Available Not Available ondansetro n 8 mg disintegra ting tablet DISSOLVE 1 TABLET IN MOUTH EVERY 8 HOURS NEEDED FOR NAUSEA OR VOMITING active Not Available Not Available No t Available ketorolac 10 mg tablet TAKE 1 TABLET BY MOUTH EVERY 4 HOURS NEEDED DO NOT EXCEED 40 MG IN 24 HOURS FOR UP TO 5 DAYS active Not Available Not Available No t Available pantoprazo le 20 mg tablet,del ayed release TAKE 1 TABLET BY MOUTH TWICE DAILY 30 MINUTES BEFORE BREAKFAS T AND 30 MINUTES BEFORE DINNER active Not Available Not Available No t Available prednisone 10 mg tablets in a dose pack 08/06 completed Not Available Not Available Not Available levothyrox ine 100 mcg tablet TAKE 1 TABLET BY MOUTH ONCE DAILY active Not Available Not Available No t Available oxycodone- acetaminop hen 5 mg-325 mg tablet TAKE 1 TABLET BY MOUTH EVERY 6 HOURS NEEDED FOR MODERATE PAIN SCALE 4 6 active Not Available Not Available No t Available amoxicilli n 875 mg tablet TAKE 1 TABLET BY MOUTH EVERY 12 HOURS 11/07 completed Not Available Not Available Not Available famotidine 20 mg tablet TAKE 1 TABLET BY MOUTH ONCE DAILY active Not Available Not Available No t Available amitriptyl ine 25 mg tablet TAKE 1 TABLET BY MOUTH ONCE DAILY AT NIGHT AT BEDTIME FOR 10 DAYS active Not Available Not Available No t Available Euthyrox 125 mcg tablet TAKE 1 TABLET BY MOUTH ONCE DAILY active Not Available Not Available No t Available dicyclomin e 20 mg tablet TAKE 1 TABLET BY MOUTH 4 TIMES DAILY NEEDED FOR ABDOMINA L PAIN active Not Available Not Available No t Available phenazopyr idine 100 mg tablet TAKE 1 TO 2 TABLETS BY MOUTH THREE TIMES DAILY NEEDED FOR BLADDER active Not Available Not Available No t Available benzonatat e 100 mg capsule TAKE 1 TO 2 CAPSULES BY MOUTH THREE TIMES DAILY NEEDED FOR COUGH . DO NOT EXCEED 6 PER 24 HOURS active Not Available Not Available No t Available doxycyclin e monohydrat e 100 mg capsule 08/06 completed Not Available Not Available Not Available hydrocodon e 7.5 mg-acetami nophen 325 mg tablet TAKE 1 TABLET BY MOUTH EVERY 6 HOURS NEEDED FOR MODERATE PAIN active Not Available Not Available No t Available cephalexin 500 mg capsule TAKE 1 CAPSULE BY MOUTH 4 TIMES DAILY 11/07 completed Not Available Not Available Not Available pantoprazo le 40 mg tablet,del ayed release TAKE 1 TABLET BY MOUTH TWICE DAILY active Not Available Not Available No t Available erythromyc in 5 mg/gram (0.5 %) eye ointment 08/06 completed Not Available Not Available Not Available oseltamivi r 75 mg capsule 08/06 completed Not Available Not Available Not Available buspirone 30 mg tablet TAKE 1 TABLET BY MOUTH TWICE DAILY active Not Available Not Available No t Available nystatin 100,000 unit/gram topical cream APPLY CREAM TOPICALL Y TWICE DAILY FOR 14 DAYS active Not Available Not Available No t Available clotrimazo le-betamet hasone 1 %-0.05 % topical cream 03/05 completed Not Available Not Available Not Available lansoprazo le 30 mg capsule,de layed release TAKE 1 CAPSULE BY MOUTH ONCE DAILY active Not Available Not Available No t Available lidocaine 5 % topical patch APPLY ONE PATCH TOPICALL Y TO CLEAN, DRY SKIN. LEAVE ON FOR 12 HOURS THEN REMOVE. MUST WAIT AT LEAST 12 HOURS BEFORE APPLYING PATCH(ES ) AGAIN. active Not Available Not Available No t Available promethazi ne 25 mg tablet 03/05 completed Not Available Not Available Not Available hydrocodon e-homatrop ine 5 mg-1.5 mg/5 mL oral solution TAKE 5 ML BY MOUTH EVERY 6 HOURS NEEDED FOR COUGH active Not Available Not Available No t Available mometasone 50 mcg/actuat ion nasal spray 03/05 completed Not Available Not Available Not Available gabapentin 300 mg capsule TAKE 1 CAPSULE BY MOUTH THREE TIMES DAILY active Not Available Not Available No t Available etodolac 400 mg tablet TAKE 1 TABLET BY MOUTH TWICE DAILY active Not Available Not Available No t Available montelukas t 10 mg tablet TAKE 1 TABLET BY MOUTH ONCE DAILY AT NIGHT active Not Available Not Available No t Available aspirin 81 mg tablet Daily 08/06 completed Frequen cy: daily;M edicati on Descrip tion: aspirin ; Dosage: 1; Route:o ral; refills :0; Quantit y:30 tablet Not Available Not Available Not Available ranitidine 150 mg capsule 08/06 completed Not Available Not Available Not Available mupirocin 2 % topical ointment APPLY OINTMENT TOPICALL Y TO AFFECTED AREA THREE TIMES DAILY active Not Available Not Available No t Available gabapentin 100 mg capsule TAKE 1 CAPSULE BY MOUTH ONCE DAILY IN THE MORNING active Not Available Not Available No t Available prednisone 5 mg tablets in a dose pack TAKE DIRECTED 11/07 completed Not Available Not Available Not Available ibuprofen 600 mg tablet TAKE 1 TABLET BY MOUTH EVERY 6 TO 8 HOURS NEEDED FOR PAIN; GIVE W/FOOD IF STOMACH UPSET OCCURS active Not Available Not Available No t Available polyethyle ne glycol 3350 17 gram/dose oral powder 08/06 completed Not Available Not Available Not Available levofloxac in 500 mg tablet TAKE 1 TABLET BY MOUTH ONCE DAILY active Not Available Not Available No t Available estradiol 0.01% (0.1 mg/gram) vaginal cream 03/05 completed Not Available Not Available Not Available levofloxac in 750 mg tablet TAKE 1 TABLET BY MOUTH ONCE DAILY active Not Available Not Available No t Available zolpidem 10 mg tablet TAKE 1 TABLET BY MOUTH NIGHTLY NEEDED FOR SLEEP active Not Available Not Available No t Available methylpred nisolone 4 mg tablets in a dose pack TAKE BY MOUTH DIRECTED ON INSIDE OF PACKAGE active Not Available Not Available No t Available albuterol sulfate HFA 90 mcg/actuat ion aerosol inhaler INHALE 1 PUFF BY MOUTH EVERY 4 HOURS NEEDED FOR WHEEZING active Not Available Not Available No t Available ipratropiu m bromide 42 mcg (0.06 %) nasal spray USE 2 SPRAY(S) IN EACH NOSTRIL TWICE DAILY DIRECTED active Not Available Not Available No t Available ketoconazo le 2 % topical cream 03/05 completed Not Available Not Available Not Available bromphenir amine-pseu doephedrin e-DM 2 mg-30 mg-10 mg/5 mL oral syrup TAKE 10 ML BY MOUTH EVERY 4 TO 6 HOURS NEEDED FOR COUGH AND CONGESTI ON active Not Available Not Available No t Available ondansetro n 4 mg disintegra ting tablet DISSOLVE 1 TABLET IN MOUTH EVERY 8 HOURS NEEDED FOR NAUSEA FOR VOMITING active Not Available Not Available No t Available cefdinir 300 mg capsule TAKE 1 CAPSULE BY MOUTH TWICE DAILY 11/07 completed Not Available Not Available Not Available fluticason e propionate 50 mcg/actuat ion nasal spray,susp ension USE 1 SPRAY(S) IN EACH NOSTRIL TWICE DAILY DIRECTED active Not Available Not Available No t Available sorbitol 70 % solution TAKE 150 ML BY MOUTH EVERY 2 HOURS UNTIL BOWEL MOVEMENT active Not Available Not Available No t Available metronidaz ole 0.75 % topical gel 03/05 completed Not Available Not Available Not Available dicyclomin e 10 mg capsule TAKE 1 CAPSULE BY MOUTH 4 TIMES DAILY BEFORE MEAL(S) AND AT BEDTIME active Not Available Not Available No t Available naproxen 500 mg tablet TAKE 1 TABLET BY MOUTH TWICE DAILY active Not Available Not Available No t Available metoclopra mide 10 mg tablet TAKE 1 TABLET BY MOUTH THREE TIMES DAILY NEEDED FOR NAUSEA AND ABDOMINA L DISCOMFO RT active Not Available Not Available No t Available levothyrox ine 112 mcg tablet TAKE 1 TABLET BY MOUTH ONCE DAILY active Not Available Not Available No t Available amoxicilli n 875 mg-potassi um clavulanat e 125 mg tablet TAKE 1 TABLET BY MOUTH TWICE DAILY active Not Available Not Available No t Available buspirone 15 mg tablet 03/05 completed Not Available Not Available Not Available neomycin-p olymyxin-h ydrocort 3.5 mg-10,000 unit/mL-1 % ear drops,susp INSTILL 3 DROPS INTO EACH EAR 4 TIMES DAILY active Not Available Not Available No t Available meclizine 25 mg chewable tablet 1 TAB EVERY 8 HOURS ONLY NEEDED FOR DIZZINES S 2019 active Not Available Not Available Not Avai lable escitalopr am 20 mg tablet TAKE 1 & 1/2 (ONE & ONE-HALF ) TABLETS BY MOUTH ONCE DAILY active Not Available Not Available No t Available nitrofuran toin monohydrat e/macrocry stals 100 mg capsule TAKE 1 CAPSULE BY MOUTH TWICE DAILY FOR 5 DAYS active Not Available Not Available No t Available lubiprosto ne 24 mcg capsule TAKE 1 CAPSULE BY MOUTH TWICE DAILY WITH MEALS active Not Available Not Available No t Available fluocinolo ne acetonide oil 0.01 % ear drops INSTILL 5 DROPS INTO AFFECTED EAR(S) BY OTIC ROUTE 2 TIMES PER DAY FOR 10 DAYS AND THEN ONCE OR TWICE WEEKLY active Not Available Not Available No t Available Engerix-B (PF) 20 mcg/mL intramuscu lar syringe 03/05 completed Not Available Not Available Not Available peg 3350-elect rolytes 236 gram-22.74 gram-6.74 gram-5.86 gram solution MIX AND DRINK 8 OUNCES EVERY 10-20 MINUTES UNTIL BOWEL MOVEMENT IS CLEAR active Not Available Not Available No t Available Havrix (PF) 1,440 OLIVIA unit/mL intramuscu lar syringe 03/05 completed Not Available Not Available Not Available levocetiri zine 5 mg tablet TAKE 1 TABLET BY MOUTH ONCE DAILY IN THE EVENING active Not Available Not Available No t Available diclofenac 1 % topical gel APPLY 4 GRAMS TOPICALL Y TO AFFECTED AREA DIRECTED 4 TIMES DAILY NEEDED FOR ELBOW PAIN active Not Available Not Available No t Available Recombivax HB (PF) 10 mcg/mL intramuscu lar suspension 03/05 completed Not Available Not Available Not Available dexlansopr azole 60 mg capsule,bi phase delayed release TAKE 1 CAPSULE BY MOUTH ONCE DAILY active Not Available Not Available No t Available sodium,pot assium,mag sulfates 17.5 gram-3.13 gram-1.6 gram oral soln USE DIRECTED active Not Available Not Available No t Available Allergy Relief (fexofenad ine) 180 mg tablet TAKE 1 TABLET BY MOUTH ONCE DAILY active Not Available Not Available No t Available Stahist AD 25 mg-60 mg tablet TAKE 1 2 TO 1 (ONE HALF TO ONE) TABLET BY MOUTH EVERY 8 HOURS NEEDED FOR CONGESTI ON active Not Available Not Available No t Available Prepopik 10 mg-3.5 gram-12 gram oral powder packet 08/06 completed Not Available Not Available Not Available Linzess 145 mcg capsule TAKE 1 CAPSULE BY MOUTH ONCE DAILY IN THE MORNING BEFORE BREAKFAS T active Not Available Not Available No t Available Linzess 290 mcg capsule TAKE 1 CAPSULE BY MOUTH ONCE DAILY active Not Available Not Available No t Available Procto-Med HC 2.5 % topical cream perineal applicator INSERT INTO THE RECTUM TWICE DAILY active Not Available Not Available No t Available Xiidra 5 % eye drops in a dropperett e INSTILL 1 DROP INTO EACH EYE TWICE DAILY active Not Available Not Available No t Available Fluarix Quad 4138-9760 (PF) 60 mcg (15 mcg x 4)/0.5 mL IM syringe 03/05 completed Not Available Not Available Not Available Shingrix (PF) 50 mcg/0.5 mL intramuscu lar suspension , kit 03/05 completed Not Available Not Available Not Available Fluzone Quad (PF) 60 mcg (15 mcg x 4)/0.5 mL IM syringe 03/15 completed Not Available Not Available Not Available Fluzone Quad [id number] (PF) 60 mcg (15 mcg x 4)/0.5 mL IM syringe PHARMACI ST ADMINIST ERED IMMUNIZA TION ADMINIST ERED AT TIME OF DISPENSI NG active Not Available Not Available No t Available Sutab 1.479-0.18 8-0.225 gram tablet TAKE 12 TABLETS BY MOUTH FOR ONE DOSE DIRECTED FOR PROCEDUR E active Not Available Not Available No t Available BinaxNOW COVID-19 Ag Self Test kit Use as Directed on the Package active Not Available Not Available No t Available Paxlovid 300 mg (150 mg x 2)-100 mg tablets in a dose pack TAKE 3 TABLETS TOGETHER (TWO 150 MG NIRMATRE LVIR TABLETS AND ONE 100 MG RITONAVI R TABLET) BY MOUTH TWICE DAILY FOR 5 DAYS. active Not Available Not Available No t Available Mounjaro 7.5 mg/0.5 mL subcutaneo us pen injector INJECT 7.5 MG ONCE A WEEK FOR FOUR WEEKS active Not Available Not Available No t Available Mounjaro 5 mg/0.5 mL subcutaneo us pen injector INJECT ONCE A WEEK active Not Available Not Available No t Available Mounjaro 2.5 mg/0.5 mL subcutaneo us pen injector INJECT 2.5 MG SUBCUTAN EOUSLY ONCE A WEEK FOR 4 WEEKS active Not Available Not Available No t Available Vitals Date Recorded Body weight Body mass index (BMI) Body height Body temperature Oxygen saturation Oxygen saturation in Arterial blood by Pulse oximetry Heart rate Systolic And Diastolic Provider Name and Address Organization Details Last Updated DateTime 2 339785. 12 g 42.6 kg/m2 170.18 cm 98.9 [degF] 98 % 98 % 88 /min 131/93 mm[Hg] [facility] 2 10:56:36 Date Recorded Body height Body mass index (BMI) Body weight Heart rate Oxygen saturation Oxygen saturation in Arterial blood by Pulse oximetry Body temperature Systolic And Diastolic Provider Name and Address Organization Details Last Updated DateTime 9 170.18 cm 0 kg/m2 4.54 g 98 /min 99 % 99 % 97.6 [degF] 132/84 mm[Hg] [facility] 9 08:06:05 Date Recorded Body height Body mass index (BMI) Body weight Body temperature Heart rate Systolic And Diastolic Provider Name and Address Organization Details Last Updated DateTime 9 170.18 cm 35.5 kg/m2 847876. 31 g 97.5 [degF] 90 /min 105/70 mm[Hg] Jayne Multani [facility] 9 08:00:42 Date Recorded Body height Body mass index (BMI) Body weight Body temperature Heart rate Oxygen saturation Oxygen saturation in Arterial blood by Pulse oximetry Systolic And Diastolic Provider Name and Address Organization Details Last Updated DateTime 0 170.18 cm 37 kg/m2 295048. 8 g 97.4 [degF] 86 /min 94 % 94 % 123/77 mm[Hg] Allison Fox [facility] 0 12:53:25 Social History Question Answer Notes LastModified by [employer] Details LastModified Time Tobacco Smoking Status Never [facility] 08/06/2017 09:51:59 How Much Tobacco Do You Chew? None [email or web address] Information not available 03/05/2019 What Was The Date Of Your Most Recent Tobacco Screening? 09/24/2017 Information n ot available 06/22/2019 How Much Tobacco Do You Smoke? No [email or web address] Information not available 03/05/2019 Sex: Unknown Functional Status Question Answer Note LastModified by [employer] Details LastModified Time What is your level of alcohol consumption? None [email or web address] Information not available 08/06/2017 Do you or have you ever used smokeless tobacco? Never used smokeless tobacco [email or web address] Information not available 03/05/2019 Mental Status None recorded. Family History Relationship Description Onset Age of this Age Resolved Age Notes LastModified by Organization Details LastModified Time Mother Disorder of thyroid gland [email or web address] Not available 05/2018 14:45:56 Mother Malignant neoplasm of breast [email or web address] Not available 05/2018 14:46:11 Mother Cerebrovascu lar accident [email or web address] Not available 03/05/2019 14:46:29 Sister Disorder of thyroid gland [email or web address] Not available 05/2018 14:45:56 Medical History Condition Response Diabetes N Bleeding Disorder N Arthritis Y Emphysema N Acid Reflux (GERD) Y Heart Disease N Rheumatoid Arthritis N Hypertension N COPD N Asthma N Gynecological HistoryNo gynecological history recorded. Obstetrics History GPAL:G 0 P 0 0 0 0 Past Encounters Encounter ID Performer Location Encounter Start Date Encounter Closed Date Diagnosis/Indication Diagnosis SNOMED-CT Code Diagnosis ICD10 Code Diagnosis IMO Codes Diagnosis Note [id number] JAMISON FRANCIS MD [facility] [address] [address] 08/06/2017 09:35:10 08/06/2017 10:20:27 Keratoconjunctivitis sicca, not specified as Sj gren's 88745724 H16.223 she has ongoing worsening dry mouth and dry eyes along with chronic fatigue and arthralgia 's. has positive parotid enlargemen t. All these features raises concerns about Sjogren's syndrome. Discussed and labs obtained. If inconclusi ve , we will do the minor salivary gland biopsy Fibromyalgia 908938001 M 78.7 chronic and symptomati c. she has typical tender points and somatic complaints . Needs to maintain the gabapentin 300 mg bid. Higher dose makes her sleepy. she is on [facility] amitriptyl ine at bed time, 50 mg po qhs. This would make her dry also but we might need to change it to some other medication to help her sleep. [id number] JAMISON FRANCIS [place] [id number] 09/24/2017 08:35:13 09/24/2017 09:30:09 Keratoconjunctivitis sicca, not specified as Sj gren's 93387616 H16.223 Chronic and with negative studies. Normal RANDOLPH screen and negative anti SSA/ SSB abs. normal ESR. No need for further investigat ions at this point. Fibromyalgia 546566930 M [age] chronic and symptomati c. she has typical tender points and somatic complaints . Has classic allodynia with central sensitizat ion pains. Needs to maintain the gabapentin 300 mg bid. Higher dose makes her sleepy. she is on [facility] amitriptyl ine at bed time, 50 mg po qhs. Low salt and no sugar diet is the way to go. Achilles tendinitis 1165 4001 M76.61 M76.62 she has rather severe bilateral chronic achilles tendinopat hy with posterior heel spurs. I would suggest to avoid steroid injections at the site due to risk for tendon rupture. Local care, PT and use of voltaren. [id number] TAMAR LIANG MD [place] E[place] [facility] [address] [place] [address] 03/05/2019 14:18:58 03/09/2019 08:17:22 Ear pressure sensation 824119621 H93.8X9 Eczema of external auditory canal 66031246 H60.549 - L>>R Nasal vestibulitis 99202 000 J34.89 - Bilaterall y R>>L Cellulitis of face 2001 L03.211 - Upper lip and nasal labial folds Sensorineu ral hearing loss of bilateral ears 580822098 H90.3 - Audiogram 03/05/19: Type A tymps bilaterall y. Right moderate to severe SNHL and Left moderate SNHL [id number] KRISTA DOMÍNGUEZ [place] [facility] [address] [place] [address] 03/05/2019 15:07:29 03/05/2019 16:07:49 Sensorineural hearing loss of bilateral ears 552419366 H90.3 Bilateral earache 210031 003 H92.03 Bilateral tinnitus 45934 12093 102 H93.13 [id number] REGINO REYES APRN [facility] [address] [place] [address] 03/15/2019 08:00:06 03/17/2019 14:39:46 Eczema of external auditory canal 01901599 H60.543 - L>R - 03/15/19: EAC's and TM's clear Nasal vestibulitis 87557 000 J34.89 - Bilateral - slow improvemen t Cellulitis of face 2001 L03.211 - Upper lip and nasal labial folds - slow improvemen t - allergic vs viral vs staph Ear pressu re sensation 662523672 H93.8X3 - L>R Sensorineu ral hearing loss of bilateral ears 722862940 H90.3 - Audiogram 03/05/19: Type A tymps bilaterall y. Right moderate to severe SNHL and Left moderate SNHL Dysfunctio n of bilateral eustachian tubes 1107296468 487532 H69.93 Posterior rhinorrhea 758 85931 R09.82 - chronic PND - AR vs VMR On examina tion - macroglossia 425373361 K14.8 [id number] MD REJI FRANCO ENT [address] [place] [address] 04/07/2019 07:55:48 04/12/2019 09:57:05 Nasal vestibulitis 84648360 J34.89 - resolving Cellulitis of face 2001 L03.211 - Upper lip and nasal labial folds resolving Sensorineu ral hearing loss of bilateral ears 533484941 H90.3 - Audiogram 03/05/19: Type A tymps bilaterall y. Right moderate to severe SNHL and Left moderate SNHL Skin ulcer of nose 49527 3000 J34.0 Migraine 59349855 G43.90 9 Dysphagia 23987222 R13.1 0 Feeling of lump in throat 033444555 F45.8 Dysfunctio n of bilateral eustachian tubes 3006441787 882740 H69.93 Ear pressu re sensation 764307878 H93.8X9 Laryngopha ryngeal reflux 866344229 K21.9 Hiatal hernia 23281381 K 44.9 [id number] MD REJI OSPINA ENT [facility] CL[facility] [address] [facility] [place] [address] 04/20/2020 12:45:41 04/20/2020 13:49:38 Nasal vestibulitis 86053702 J34.89 - resolving Cellulitis of face 2001 L03.211 - Upper lip and nasal labial folds resolving Sensorineu ral hearing loss of bilateral ears 862147405 H90.3 - Audiogram 03/05/19: Type A tymps bilaterall y. Right moderate to severe SNHL and Left moderate SNHL Skin ulcer of nose 18710 3000 J34.0 Migraine 24494825 G43.90 9 Dysphagia 08728482 R13.1 0 Feeling of lump in throat 585922674 F45.8 Dysfunctio n of bilateral eustachian tubes 8772039397 605633 H69.93 Ear pressu re sensation 998933352 H93.8X9 Laryngopha ryngeal reflux 853866202 K21.9 Hiatal hernia 57913959 K 44.9 Patulous e ustachian tube 20874113 H69.03 -SUSPECT BILATERAL, START PREMARIN NASAL SPRAY. Impacted c erumen of bilateral ears 6489051538 878361 H61.23 -CLEANED 04/20/20 Dizziness 196402059 R42 -04/20/20 DIOGENES HALLPIKES NORMAL. [id number] KRISTA DOMÍNGUEZ ENT [facility] [address] [place] [address] 04/20/2020 13:02:07 04/20/2020 14:02:38 Sensorineural hearing loss of bilateral ears 285884782 H90.3 Bilateral tinnitus 58910 70926 102 H93.13 Dizziness and giddiness 595187597 R42 [id number] DAKOTA CHOU MD [place] [facility] [address] [place] [address] 11/07/2021 10:50:36 11/07/2021 11:43:02 Sensorineural hearing loss of bilateral ears 208710593 H90.3 - Audiogram 03/05/19: Type A tymps bilaterall y. Right moderate to severe SNHL and Left moderate SNHL Dysfunctio n of bilateral eustachian tubes 6165012599 755947 H69.93 Eczema of external auditory canal 89933054 H60.549 - 11/07/2021 - LEFT WORSE ; Betamethas one Valerate cream prescribed Retraction of tympanic membrane 52346464 H73.899 - 11/07/2021 - left sided History of surgery 61277 5003 Z98.890 - Sinus surgery- Tonsillect johana Examination of ear 52928 0007 Z01.10 -BILATERAL Bilateral earache 138080 003 H92.03 - 11/07/2021 - intermitte nt Obstructiv e sleep apnea syndrome 15124579 G47.33 CONTINUE CPAP Health Concerns Section Related Observation LastModified by Organization Detai ls LastModified Time None Recorded Concern Status LastModified by Organization Details LastModified Time None Recorded Advance Directives Directive None Recorded Payers Insurance Date Sequence Insurance Name Policy Number Policy Hairston Covered Member ID Hairston Member ID Guarantor Name 12/14/2023 1 [place] [id number] Cielo Chase [id number] Cielo Chase Notes Date Note Type Note Provider Name and Address Organization Details Recorded Time 03/15/2019 text/html Cielo Chase returns today for follow up of bilateral nasal vestibulitis with upper lip and nasal labial fold cellulitis. Her issues began about 4 months ago and she has concerns because they started after she began dating a gentleman that does develop cold sores. Ms. Chase was evaluated on 03/05/[address] Liang and placed on Bactrim and Mupirocin, she was also advised to use saline spray routinely. She says the swelling and inflammation has improved overall but not completely resolved. There is no pain and her lips are no longer swollen, but still has a cold sore or two. She denies pain or fever, but does say the nose george. She denies use of new skin products, soap/shampoo, or new foods. She just completed the Bactrim yesterday. Ms. Chase continues to have bilateral ear fullness with lightheadedness. Her audiogram on 03/05/19 revealed a SNHL with normal tympanometry. There is no ear pain, discharge, or hearing loss. The ears will clear with auto-inflation but at times feel clogged after doing that. She does have a history of bilateral tinnitus for several years. REJI Reynoso [facility] 03/31/2019 08:41:09 04/07/2019 text/html Cielo returns today in follow up of bilateral nasal vestibulitis, facial cellulitis along with eczematous otitis externa. She was most recently seen by Deacon Reyes on 03/15/19 and prescribed Bactrim DS for her facial cellulitis, and continue using Mupirocin ointment in the nose daily. She feels as though both the nasal vestibulitis and facial cellulitis is resolving. She did go to the hospital for a severe Migraine Headache. This is a new concern for Cielo. She also complains of globus sensation on the right side of her throat along with dysphagia and has noticed food getting stuck. She is taking Protonix daily for reflux. She does notice symptoms on a fairly regular basis. She continues to notice popping and cracking in both ears. Cielo is doing well otherwise. TAMAR LIANG MD [address] [place] [address], [phone], [facility] 04/07/2019 08:52:22 04/20/2020 text/html This patient returns for recheck of EARS. Since last visit patient reports no change in symptoms with flonase. SHE REPORTS EAR PRESSURE, HEARING HER BREATHING, DIZZINESS WITH BENDING OVER, AND SOME EARACHES IN THE COLD. 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 ARTHRITIS, FIBROMYALGIA, GERD, ECZEMA, S/P SEPTO [facility] 09/25/18 DR. LIANG SOC: WORKS [employer] AT [facility] [facility] [place] 04/07/20 DR. LIANG: Cielo returns today in follow up of bilateral nasal vestibulitis, facial cellulitis along with eczematous otitis externa. She was most recently seen by Deacon Reyes on 03/15/19 and prescribed Bactrim DS for her facial cellulitis, and continue using Mupirocin ointment in the nose daily. She feels as though both the nasal vestibulitis and facial cellulitis is resolving. She did go to the hospital for a severe Migraine Headache. This is a new concern for Cielo. She also complains of globus sensation on the right side of her throat along with dysphagia and has noticed food getting stuck. She is taking Protonix daily for reflux. She does notice symptoms on a fairly regular basis. She continues to notice popping and cracking in both ears. Cielo is doing well otherwise. DAKOTA CHOU MD [address] [place] [address], [phone], [facility] 04/20/2020 13:43:08 11/07/2021 text/html This patient returns for recheck of EARS. Since last visit patient reports worsening in symptoms with time. She reports she has severe ear pain, drainage and feels like her ears are stopped up with crusting. She denies any history of eczema or psoriasis. She was last seen in our office in April of 2020. She has sleep apnea. 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 11/08/2021 17:08:25 OBGyn Episode No OBEpisode recorded.
--- OUTSIDE RECORDS SUMMARY | 2025-03-01 18:21 | XMS_ITS | Encounter Summary ---
[facility] Address [address] [place] [address] Care Team Providers Care Linux System Administrator Name Role Phone Surinder Rocha MD Primary Care Provider [phone] Reason for Visit * Reason Comments Med Refill Encounter Details Date Type Department Care Team (Late st Contact Info) Description 10/07/2019 Refill [facility] [address] [place] [address] Surinder Rocha MD [address] [place], [place] [id number] Complicated migraine Social History Tobacco Use Types [...] Description 03/30/2025 8:45 AM EST Office Visit [facility] [address] [place] [phone] Surinder Rocha MD [address] [place] [address] 08/25/2025 8:30 AM EDT Appointment [address] [address] documented as of this encounter Visit Diagnoses Diagnosis Complicated migraine Migraine, unspecified, without mention of intractable migraine without mention of status migrainosus documented in this encounter Additional Health Concerns Infection Onset Date Last Indicated Resolved Time COVID Screen (preop/placement) 04/24/2020 04/24/2020 04/25/2020 1:35 AM EST COVID Screen (preop/placement) 08/19/2020 08/19/2020 08/19/2020 3:31 AM EDT documented as of this encounter Care Teams Linux System Administrator Relationship Specialty Start Date End Date Surinder Rocha MD [address] [place] [address] PCP - General Family Medicine 10/05/19 documented as of this encounter
--- OUTSIDE RECORDS SUMMARY | 2025-03-01 18:21 | XMS_ITS | Encounter Summary ---
[facility] Address [address] [place] [address] Care Team Providers Care Accounting Analyst Name Role Phone Surinder Rocha MD Primary Care Provider [phone] Reason for Visit * Reason Comments Med Refill Encounter Details Date Type Department Care Team (Late st Contact Info) Description 07/13/2021 Refill [facility] [address] [place] [phone] Surinder Rocha MD [address] [place], [place] [id number] Gastroesophageal reflux disease, unspecified whether esophagitis present; [...] [facility] [address] [place] [address] Surinder Rocha MD [address] [place] [address] 08/25/2025 8:30 AM EDT Appointment [address] [address] documented as of this encounter Visit Diagnoses Diagnosis Gastroesophageal reflux disease, unspecified whether esophagitis present Adjustment disorder with anxious mood Adjustment disorder with anxiety Idiopathic peripheral neuropathy Unspecified hereditary and idiopathic peripheral neuropathy Insomnia, unspecified type documented in this encounter Care Teams Accounting Analyst Relationship Specialty Start Date End Date Surinder Rocha MD [address] [place] [address] PCP - General Family Medicine 10/05/19 documented as of this encounter
--- OUTSIDE RECORDS SUMMARY | 2025-03-01 18:22 | XMS_ITS | Encounter Summary ---
[facility] Address [address] [place] [address] Care Team Providers Care Manager Agricultural Name Role Phone Surinder Rocha MD Primary Care Provider [phone] Reason for Visit * Reason Comments Med Refill Encounter Details Date Type Department Care Team (Late st Contact Info) Description 11/06/2019 Refill [facility] [address] [place] [phone] January Flores DO [address] [place] [address] Insomnia, unspecified type Social History Tobacco Use [...] Office Visit [facility] [address] [place] [address] Surinder Rocha MD [address] [place] [address] 08/25/2025 8:30 AM EDT Appointment [place] [id number] documented as of this encounter Visit Diagnoses Diagnosis Insomnia, unspecified type documented in this encounter Additional Health Concerns Infection Onset Date Last Indicated Resolved Time COVID Screen (preop/placement) 04/24/2020 04/24/2020 04/25/2020 1:35 AM EST COVID Screen (preop/placement) 08/19/2020 08/19/2020 08/19/2020 3:31 AM EDT documented as of this encounter Care Teams Manager Agricultural Relationship Specialty Start Date End Date Surinder Rocha MD [address] [place], [place] [id number] PCP - General Family Medicine 10/05/19 documented as of this encounter
--- NOTE | 2025-03-01 18:38 | XR_ITS ---
PROCEDURE INFORMATION: Exam: XR Chest Exam date and time: 03/01/2025 6:51 PM Age: 59 years old Clinical indication: Dyspnea TECHNIQUE: Imaging protocol: Radiologic exam of the chest. Views: 1 view. COMPARISON: CR XR CHEST 2V 04/21/2024 2:40 PM FINDINGS: Lungs: Bibasilar opacities partially silhouette the diaphragm are favored to represent combination of atelectasis/pleural effusion/consolidation. Pleural spaces: See Lungs finding. Heart/Mediastinum: Unremarkable. No cardiomegaly. Bones/joints: Unremarkable. IMPRESSION: Bibasilar opacities partially silhouette the diaphragm are favored to represent combination of atelectasis/pleural effusion/consolidation.
--- NOTE | 2025-03-01 18:43 | HMH.EDGENADL ---
Discharge Plan Disposition Patient Disposition: Home, Self-Care Prescriptions Prescriptions: No Action lidocaine 5 % adhesive patch,medicated 1 patch transdermal DAILY Patient Comments: USE 1 PATCH EXTERNALLY EVERY 12 HOURS WEAR FOR 12 HOURS AND THEN OFF FOR 12 HOURS famotidine 40 mg tablet 40 mg PO DAILY Patient Comments: TAKE 1 TABLET BY MOUTH EVERY DAY AT BEDTIME albuterol sulfate 90 mcg/actuation HFA aerosol inhaler 1 puff inhalation DAILY Patient Comments: INHALE 1 PUFF BY MOUTH EVERY 4 HOURS NEEDED FOR WHEEZING cetirizine [All Day Allergy (cetirizine)] 10 mg tablet 10 mg PO DAILY PRN (Reason: allergy symptoms) Qty: 30 0RF ondansetron 8 mg tablet,disintegrating 8 mg PO TID PRN (Reason: nausea and vomiting) Qty: 60 2RF Rexulti 1 mg tablet 1 mg PO DAILY Qty: 30 2RF escitalopram oxalate 20 mg tablet 30 mg PO HS Qty: 30 2RF buspirone 30 mg tablet 30 mg PO BID Qty: 30 2RF amitriptyline 50 mg tablet 50 mg PO HS Qty: 30 2RF pantoprazole 40 mg tablet,delayed release (DR/EC) 40 mg PO DAILY Patient Comments: TAKE 1 TABLET BY MOUTH TWICE DAILY levothyroxine 125 mcg tablet 125 mcg PO DAILY Patient Comments: TAKE 1 TABLET BY MOUTH ONCE DAILY montelukast 10 mg tablet 10 mg PO DAILY Patient Comments: TAKE 1 TABLET BY MOUTH ONCE DAILY AT NIGHT Trulance 3 mg tablet 3 mg PO DAILY Patient Comments: TAKE 1 TABLET BY MOUTH ONCE DAILY promethazine-DM 6.25-15 mg/5 mL syrup 5 ml PO Q4-6H PRN (Reason: cough) Qty: 118 0RF mupirocin [Centany] 2 % ointment 1 applic topical BID Qty: 15 0RF cefdinir 300 mg capsule 300 mg PO BID Qty: 20 0RF diclofenac sodium [Arthritis Pain (diclofenac)] 1 % gel 4 g topical QID Qty: 50 0RF Rx Instructions: apply to single knee, ankle, foot; for foot includes sole/toes/top of foot gabapentin 300 MG capsule 300 mg PO HS zolpidem 10 MG tablet 10 mg PO HS fluticasone propionate 120 SPR/BOT bottle 1 - 2 spr intranasal DAILY Referrals Follow up/Referrals: Surinder Rocha [Primary Care Provider, Medical] - See instructions Shorty Slaughter MD [Staff Physician, Cardiology] - See instructions Activity Restrictions/Add. Instructions Additional Instructions/Restrictions: No emergency diagnosis to explain your chest pain however we have made an appointment with Dr. Slaughter for 9 AM in the morning to workup your chest pain and shortness of breath further. No indication for hospitalization at the moment. Clinical Impressions Clinical Impression: Chest pain Print Language Print Language: Panamanian Discharge ED Provider: Qian Troy General Adult HPI General Chief complaint: Chest Pain Stated complaint: chest pain Time Seen by Provider: 03/01/25 18:29 Mode of Arrival: Ambulatory Source of Information: Patient Description of Symptoms (Recalled from ER Triage Doc. by RN): PT presents for evaluation of chest pain that started 1 week ago that became worse today. The pain started to become more frequent, and now has become constant. Pt states she has been aspirin daily. Pt states it has been 3-4 daily she has taken. Pt states the pain radiates to her back and down her left arm. Pt rates pain as a 10/10 History of Present Illness HPI narrative: Patient is a 59-year-old female with a history of 1 week of chest pain has been ongoing and unrelenting. States has been fluctuating in intensity but has not gone away completely is located left anterior chest rating into her left arm and radiating to her back. 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 Has never had a stress test or heart cath in the past. No exertional symptoms that she noted from historical standpoint. She denies any significant shortness of breath. Has been eating aspirin like it is going out of style. However she has not had any aspirin today. Related Data Home Medications ?Medication ?Instructions ?Recorded ?Confirmed gabapentin 300 mg capsule 300 mg PO HS fibromylagia 12/04/17 02/24/25 zolpidem 10 mg tablet 10 mg PO HS Insomnia 12/04/17 02/24/25 fluticasone propionate 50 1 - 2 spr intranasal DAILY Allergy 06/22/20 02/24/25 mcg/actuation nasal symptoms spray,suspension lidocaine 5 % topical patch 1 patch transdermal DAILY 04/16/23 02/24/25 albuterol sulfate 90 mcg/actuation 1 puff inhalation DAILY soa 11/18/24 02/24/25 aerosol inhaler famotidine 40 mg tablet 40 mg PO DAILY 11/18/24 02/24/25 levothyroxine 125 mcg tablet 125 mcg PO DAILY 02/18/25 02/24/25 montelukast 10 mg tablet 10 mg PO DAILY 02/18/25 02/24/25 pantoprazole 40 mg tablet,delayed 40 mg PO DAILY 02/18/25 02/24/25 release plecanatide 3 mg tablet (Trulance) 3 mg PO DAILY 02/18/25 02/24/25 Previous Rx's ?Medication ?Instructions ?Recorded cetirizine 10 mg tablet (All Day 10 mg PO DAILY PRN allergy 04/21/24 Allergy (cetirizine)) symptoms #30 tabs ondansetron 8 mg disintegrating 8 mg PO TID PRN nausea and 11/18/24 tablet vomiting #60 tabs amitriptyline 50 mg tablet 50 mg PO HS MOOD #30 tabs 02/07/25 brexpiprazole 1 mg tablet (Rexulti) 1 mg PO DAILY #30 tabs 02/07/25 buspirone 30 mg tablet 30 mg PO BID #30 tabs 02/07/25 escitalopram oxalate 20 mg tablet 30 mg (1.5 x 20 mg) PO HS 02/07/25 Depression #30 tabs cefdinir 300 mg capsule 300 mg PO BID #20 caps 02/18/25 diclofenac sodium 1 % topical gel 4 g topical QID #50 grams 02/18/25 (Arthritis Pain (diclofenac)) mupirocin 2 % topical ointment 1 applic topical BID #15 grams 02/18/25 (Centany) promethazine-DM 6.25 mg-15 mg/5 mL 5 ml PO Q4-6H PRN cough #118 mL 02/18/25 oral syrup Allergies Allergy/AdvReac Type Severity Reaction Status Date / Time pregabalin (From Lyrica) Allergy Severe Swelling Verified 02/24/25 11:02 of Lip/Tongue/Throat duloxetine (From Cymbalta) Allergy Mild Irritable Verified 02/24/25 11:02 latex Allergy Mild Rash Verified 02/24/25 11:02 sulfamethoxazole (From AdvReac Mild Nausea Verified 02/24/25 11:02 Bactrim) trimethoprim (From Bactrim) AdvReac Mild Nausea Verified 02/24/25 11:02 [facility] Disclaimer: The information contained in this section may have been updated after the patient was seen, as this information can be updated by other users. Medical History Deviated nasal tip Sarcoma Thyroid Nodule Cervical lymphadenopathy Hoarseness Hypothyroidism Dysphagia Surgical History History of hysterectomy History of hernia surgery History of bilateral knee replacement Family History Other No significant family history Social History (Updated 02/24/25 @ 11:51 by Satish Edwards CRNA) Smoking Status: Never smoker second hand exposure: No alcohol intake: never substance use type: denies use current occupational status: other Travel in the last 8 weeks?: None household members: family housing: house current occupational exposures/hazards: No caffeine: Yes Have you lived/traveled outside US in past 30 days?: No Contact w/someone who lives/traveled outside US past 30 days?: No Exposure to someone with infectious disease in past 14 days?: No Do you have a fever (greater than 100.4 F or 38 C)?: No Have you tested positive for COVID-19?: No Exposed to someone with COVID-19 in past 14 days?: No Do you have a sore throat?: No Do you have a cough?: No Do you have any weakness?: No Do you have any diarrhea?: No Are you experiencing any unusual bleeding?: No Do you have any muscle aches/pain?: No Do you have any abdominal pain?: No Are you experiencing loss of taste or smell?: No Other Medical History Have you received the Flu Vaccine for this season: Yes Have you received the Pneumonia Vaccine: No ROS Obtained: Yes All systems reviewed & no additional complaints except as documented Physical Exam General General appearance: alert and in no apparent distress Respiratory Respiratory exam: Present normal lung sounds bilaterally; Absent respiratory distress Cardiovascular Cardiovascular exam: Present regular rate, normal rhythm and other (Distant heart sounds) Neurological Exam Neurological exam: Present alert and oriented X3 Medical Decision Making Medical Records Screening: Per USPSTF and CDC recommendations, given the prevalence of disease in our region, it is our hospital?s policy to screen for HIV and viral Hepatitis for all patients aged 18 and over and those with ongoing risk factors. Reyes Inquiry Pt receiving controlled substance: No Vital Signs: 03/01/25 18:06 03/01/25 19:17 03/01/25 19:30 Temperature 98.4 F Temperature Source Temporal Artery Scan Pulse Rate 82 Pulse Rate [Right] 93 H Respiratory Rate 18 14 Blood Pressure 120/71 Blood Pressure [Right Arm] 130/75 Blood Pressure Mean 82 Blood Pressure Mean [Right Arm] 93 Blood Pressure Source [Right Arm] Automatic Cuff Blood Pressure Position [Right Arm] Sitting 02 Sat by Pulse Oximetry 98 94 L Oxygen Delivery Method Room Air 03/01/25 19:30 03/01/25 19:45 03/01/25 20:00 Temperature Temperature Source Pulse Rate 84 79 88 Pulse Rate [Right] Respiratory Rate 17 13 Blood Pressure Blood Pressure [Right Arm] Blood Pressure Mean Blood Pressure Mean [Right Arm] Blood Pressure Source [Right Arm] Blood Pressure Position [Right Arm] 02 Sat by Pulse Oximetry 94 L 93 L 97 Oxygen Delivery Method 03/01/25 20:15 03/01/25 20:30 03/01/25 20:37 Temperature Temperature Source Pulse Rate 84 88 79 Pulse Rate [Right] Respiratory Rate Blood Pressure Blood Pressure [Right Arm] Blood Pressure Mean Blood Pressure Mean [Right Arm] Blood Pressure Source [Right Arm] Blood Pressure Position [Right Arm] 02 Sat by Pulse Oximetry 97 93 L 94 L Oxygen Delivery Method 03/01/25 20:37 03/01/25 20:45 03/01/25 21:00 Temperature Temperature Source Pulse Rate 80 67 Pulse Rate [Right] Respiratory Rate 20 13 Blood Pressure 120/94 H Blood Pressure [Right Arm] Blood Pressure Mean 102 Blood Pressure Mean [Right Arm] Blood Pressure Source [Right Arm] Blood Pressure Position [Right Arm] 02 Sat by Pulse Oximetry 95 97 Oxygen Delivery Method 03/01/25 21:00 03/01/25 21:15 Temperature Temperature Source Pulse Rate Pulse Rate [Right] Respiratory Rate 20 Blood Pressure 102/75 L Blood Pressure [Right Arm] Blood Pressure Mean 84 Blood Pressure Mean [Right Arm] Blood Pressure Source [Right Arm] Blood Pressure Position [Right Arm] 02 Sat by Pulse Oximetry Oxygen Delivery Method Lab Data Lab results reviewed: Yes I reviewed the patient's lab results. Lab Results 03/01/25 18:45: WBC 6.8, RBC 4.14 L, Hgb 10.3 L, Hct 34.1 L, MCV 82.4, MCH 24.9 L, MCHC 30.2 L, RDW 17.2, Plt Count 215, MPV 10.7 H, Neut % (Auto) 70.5, Lymph % (Auto) 19.1, Loup % (Auto) 5.9, Eos % (Auto) 4.0, Baso % (Auto) 0.4, Neut # (Auto) 4.8, Lymph # (Auto) 1.3, Loup # (Auto) 0.4, Eos # (Auto) 0.3, Baso # (Auto) 0.0, D-Dimer 0.77 H, Sodium 138, Potassium 3.6, Chloride 101, Carbon Dioxide 32 H, Anion Gap 8.6, BUN 12, Creatinine 0.90, Estimated Creat Clear 122, Estimated GFR 64, Est GFR ( Amer) 77, Glucose 99, Calcium 8.2 L, Total Bilirubin 0.4, AST 35, ALT 27, Alkaline Phosphatase 121, Troponin I < 0.01, NT-Pro-B Natriuret Pep 47.1, Total Protein 7.3, Albumin 3.2 L, Globulin 4.1 H, Albumin/Globulin Ratio 0.8 L 03/01/25 18:45 03/01/25 18:45 Orders (Tests/Meds): ED MEDICATIONS Generic Name Dose Route Start Last Admin Trade Name Freq PRN Reason Stop Dose Admin Sodium Chloride 10 ml 03/01/25 22:19 03/01/25 22:21 Sodium Chloride 0.9% 10ml Syr (Rad Only) IV 03/31/25 22:18 10 ml NEEDED PRN Administration Maintain IV Site Discontinued Medications Generic Name Dose Route Start Last Admin Trade Name Freq PRN Reason Stop Dose Admin Acetaminophen 1,000 mg 03/01/25 22:13 03/01/25 22:15 Acetaminophen 1,000mg/100ml Vial IV 03/01/25 22:14 1,000 mg ONCE ONE Administration Aspirin 324 mg 03/01/25 18:39 03/01/25 19:01 Aspirin 81mg Chewable Tablet PO 03/01/25 18:40 324 mg ONCE ONE Administration Iopamidol 70 ml 03/01/25 22:19 03/01/25 22:21 Iopamidol-370 (76%);100ml Bottle IV 03/01/25 22:20 70 ml ONCE ONE Administration Morphine Sulfate 4 mg 03/01/25 19:17 03/01/25 19:35 Morphine 4mg/Ml Syringe IV 03/01/25 19:18 4 mg ONCE ONE Administration Sodium Chloride 50 ml 03/01/25 22:19 03/01/25 22:21 0.9 % Sodium Chloride 50 Ml Vial IV 03/01/25 22:20 50 ml ONCE ONE Administration ORDERS Category Date Time Status CT angio chest PE protocol Stat Cat Scan 03/01/25 21:43 Completed CXR --portable [XR chest portable] Stat Exams 03/01/25 18:38 Completed POCUS Point of Care (ER Only) Stat Exams 03/01/25 18:39 Completed BNP [NT Pro Brain Natriuretic Pep.] Stat Lab 03/01/25 18:45 Completed CBC w/Auto Diff [Complete Blood Count Auto Diff] Stat Lab 03/01/25 18:45 Completed CMP [Comprehensive Metabolic Panel] Stat Lab 03/01/25 18:45 Completed D-Dimer Stat Lab 03/01/25 18:45 Completed Trop I [Troponin I] Stat Lab 03/01/25 18:45 Completed Troponin I Q3H Lab 03/02/25 00:45 Ordered ECG Data Tracing #1: I reviewed this ECG and interpreted as documented below: Ventricular of 90 sinus rhythm indeterminate axis no acute ischemic changes noted there were low voltage QRS complexes in the precordial leads patient is not morbidly obese and has no history of severe heart failure HEART Score History (anamnesis): Slightly suspicious ECG: Non-specific disturbance Age: 45-65 years Risk factors: No known risk factors Troponin: </= normal limit HEART Score: 2 Medical Decision Narrative: 59-year-old with above history and physical EKG shows low voltage QRS she is not morbidly obese has no history of heart failure will do a bedside echo to see if there is any obvious pericardial effusion. Differential also includes recurrence of her tumor, pneumonia, ACS, pulmonary embolism etc. Basic workup is pending will reassess shortly after this initial workup is complete. Reassessment 1049 initial workup was negative including a negative or undetectably low troponin with ongoing chest pain for 1 week this is unlikely to be acute coronary syndrome or myocardial injury. Patient did disclose to me she is have been having some chronic dyspnea as well. Also she recently fell and potentially had a syncopal episode and this could have been an arrhythmia. She likely sustained a mild concussion from that fall as well as she has had some difficulty with concentrating since that time but I am not worried about an intracranial injury that would warrant a CT scan or neurosurgical intervention at this point. She had a very small frontal hematoma on reassessment that is chronic and not concerning. With regards to her chest pain she was given morphine and Tylenol had some improvement in her symptoms but did not completely resolve. D-dimer was mildly elevated and given that I did not have an alternative explanation I obtained a CT PE which I personally interpreted which shows no evidence of a recurrent tumor pulmonary embolism lung parenchymal abnormality etc. Patient is very well-appearing on my serial assessments. I did orchestrate a follow-up appointment with Dr. Slaughter at 9 AM tomorrow morning which she understood and is agreeable to follow-up with. Patient was discharged in stable condition. No evidence of an emergent medical condition that would warrant hospitalization at the moment. Procedures Miscellaneous Procedure Procedure Performed: Limited cardiac ultrasound Indication: Chest pain in the setting of low voltage QRS Identified structures: The heart was visualized in the parasternal long axis, parastenal short axis, apical four chamber and subxyphiod views. The IVC was visualized in the short axis and long axis at its entry into the right atrium. Findings: Normal LVEF no evidence of any significant or severe right heart strain or pericardial effusion Impression: Unremarkable limited ultrasound of the heart Images were saved to permanent archive The study was technically adequate CPT: 91082-36 This study was performed by me, and I personally interpreted all images/videos. Based on my clinical judgement, these images were adequate and did not necessitate further imaging. Critical Care Critical Care Time Critical Care Time: No
[2025-03-01 18:57] LABS: Hematocrit 34.1 % (37.0-47.0); Hemoglobin 10.3 g/dL (12.2-16.2); Immature Granulocytes % 0.1 %; Mean Corpuscular HGB Conc 30.2 g/dL (31.8-35.4); Mean Corpuscular Hemoglobin 24.9 pg (27.0-31.2); Mean Corpuscular Volume 82.4 fl (81-99); Nucleated Red Blood Cells % 0 %; Platelet Count 215 K/mm3 (142-424); Red Blood Count 4.14 M/mm3 (4.20-5.40); Red Cell Distribution Width-SD 50.9 fL; White Blood Count 6.8 K/mm3 (4.8-10.8)
[2025-03-01] MEDS: ASPIRIN 81MG CHEWABLE TABLET 324 MG PO (19:01)
[2025-03-01] MEDS: MORPHINE 4MG/ML SYRINGE 4 MG IV (19:35)
[2025-03-01 20:49] LABS: Alanine Aminotransferase 27 U/L (12-78); Albumin Level 3.2 g/dl (3.5-5.0); Albumin/Globulin Ratio 0.8 (1.1-1.8); Alkaline Phosphatase 121 U/L (38-126); Anion Gap 8.6 mEq/L (5-15); Aspartate Amino Transferase 35 U/L (14-36); Bilirubin,Total 0.4 mg/dl (0.2-1.3); Blood Urea Nitrogen 12 mg/dl (7-17); Calcium 8.2 mg/dl (8.4-10.2); Carbon Dioxide 32 mmol/L (22.0-30.0); Chloride 101 mmol/L (98-107); Creatinine Clearance Estimated 122 mL/min (50-200); Creatinine,Serum 0.90 mg/dl (0.52-1.04); Estimated Glomerular Filt Rate 64 ml/min (>60); GFR (African American) 77 ML/MIN (>60); Globulin 4.1 g/dL (1.3-3.2); Glucose 99 mg/dl (74-100); Potassium 3.6 mmoL/L (3.5-5.1); Sodium 138 mmol/L (136-145); Total Protein,Serum 7.3 g/dl (6.3-8.2)
[2025-03-01 20:55] LABS: D-Dimer 0.77 ug/mL (0.0-0.5)
[2025-03-01 21:00] LABS: NT Pro Brain Natriuretic Pep. 47.1 pg/mL (0-125)
[2025-03-01 21:04] LABS: Troponin I < 0.01 ng/ml (0.00-0.034)
--- NOTE | 2025-03-01 21:43 | CT_ITS ---
PROCEDURE INFORMATION: Exam: CTA Chest With Contrast Exam date and time: 03/01/2025 10:20 PM Age: 59 years old Clinical indication: Pain; Chest pressure; Additional info: Chest pain, elevated dimer TECHNIQUE: Imaging protocol: Computed tomographic angiography of the chest with contrast. Exam focused on the arteries. 3D rendering (Not supervised by radiologist): MIP and/or 3D reconstructed images were created by the technologist. Radiation optimization: All CT scans at this facility use at least one of these dose optimization techniques: automated exposure control; mA and/or kV adjustment per patient size (includes targeted exams where dose is matched to clinical indication); or iterative reconstruction. Contrast material: ISOVUE; Contrast volume: 70 ml; Contrast route: INTRAVENOUS (IV); COMPARISON: CR XR CHEST PORTABLE 03/01/2025 6:51 PM FINDINGS: Pulmonary arteries: No CT angiography evidence of pulmonary embolism. Aorta: Unremarkable. No aortic aneurysm. No aortic dissection. Lungs: Unremarkable. No consolidation. No masses. Pleural spaces: Unremarkable. No pneumothorax. No pleural effusion. Heart: Unremarkable. No cardiomegaly. No pericardial effusion. Lymph nodes: Subcarinal and left hilar calcified nodes compatible with prior granulomatous process. Gallbladder and biliary ducts: There are surgical clips within the gallbladder fossa. Spleen: Multiple benign-appearing calcific densities of the spleen. Kidneys: Right renal Bosniak 1 cystic lesion that is homogeneous and fluid density (-9-20 HU), no septations or calcifications, having peterson smooth and thin. Measurement is 3.8 cm. No follow-up recommended. Bones/joints: Unremarkable. No acute fracture. Soft tissues: Unremarkable. IMPRESSION: No CT angiography evidence of pulmonary embolism. COMMENTS: Consistent with the [place] [employer]'s Incidental Findings Committee white paper (J Am To Radiol 2018): Any incidental renal lesion less than 1 cm or classified as too small to characterize, or any incidental cystic renal lesion characterized as simple-appearing, is likely benign. No follow-up imaging is recommended for these lesions per consensus recommendations based on imaging criteria.
[2025-03-01] MEDS: ACETAMINOPHEN 1,000MG/100ML VIAL 1000 MG IV (22:15)
[2025-03-01] MEDS: IOPAMIDOL-370 (76%);100ML BOTTLE 70 ML IV (22:21)
[2025-03-01] MEDS: 0.9 % SODIUM CHLORIDE 50 ML VIAL IV (22:21)
[2025-03-01] MEDS: SODIUM CHLORIDE 0.9% 10ML SYR (RAD ONLY) 10 ML IV (22:21)
== END 2025-03-01 23:01 | disposition home or self-care (01) ==
PROVIDERS: Emergency Provider Student in an Organized Health Care Education/Training Program; PCP Family Medicine
DX: R07.9 Chest pain, unspecified (principal); R06.02 Shortness of breath; W19.XXXA Unspecified fall, initial encounter
CPT/HCPCS: 71045; 71275; 80053; 83880; 84484; 85025; 85378; 93005; 96374; 96375; 99285; J0131; J2270; Q9967

== ENCOUNTER 2025-03-02 09:39 | Observation (INO) | payer MEDICAID, SELFPAY ==
--- OUTSIDE RECORDS SUMMARY | 2025-02-04 08:30 | XMS_ITS | Encounter Summary ---
[facility] Address [address] [place] [address] Care Team Providers Care Industrial Property Appraiser Name Role Phone Surinder Rocha MD Primary Care Provider [phone] Reason for Referral * Physical Therapy (Routine) - Closed Specialty Diagnoses / Procedures Referred By Contac t Referred To Contact Physical Therapy Diagnoses Poor balance Procedures [place] OFFICE/OUTPATIENT NEW MODERATE MDM 45 MINUTES Surinder Rocha MD [address] [place] [address] Phone: tel: fax: [facility] [address] [place] [address] Phone: tel: fax: Referral ID Status Reason Start Date Expiration Date V isits Requested Visits Authorized [id number] Closed Specialty Services Required 02/04/2025 05/06/2026 1 1 Reason for Visit * Reason Comments Foot Injury 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 Encounter Details Date Type Department Care Team (Late st Contact Info) Description 02/04/2025 8:30 AM EDT Office Visit [facility] [address] [place] [address] Surinder Rocha MD [address] [place] [address] Fall in home, initial encounter [...] or training? Not on file Preferred Language Angolan 08/18/2023 PHQ-2 Answer Date Recorded Patient Health [...] Description 03/30/2025 8:45 AM EST Office Visit [facility] [address] [facility] [place] [address] Surinder Rocha MD [address] [place] [address] 08/25/2025 8:30 AM EDT [facility] [address] [facility] [address] [address] [place] [phone] documented as of this encounter Visit Diagnoses [...] documented as of this encounter Care Teams Industrial Property Appraiser Relationship Specialty Start Date End Date Surinder Rocha MD [address] [place] [address] PCP - General Family Medicine 10/05/19 documented as of this encounter
--- OUTSIDE RECORDS SUMMARY | 2025-02-04 09:00 | XMS_ITS | Encounter Summary ---
[facility] Address [address] [place] [address] Care Team Providers Care Learning Analyst Name Role Phone Surinder Rocha MD Primary Care Provider [phone] Reason for Referral * Diagnostic Imaging (Routine) - Closed Specialty Diagnoses / Procedures Referred By Contac t Referred To Contact Radiology Diagnoses Right foot pain Left foot pain Procedures XR foot 3+ vw bilateral Surinder Rocha MD [address] [place] [address] Phone: tel: fax: Referral ID Status Reason Start Date Expiration Date Visits Re quested Visits Authorized Closed 02/04/2025 05/06/2026 1 1 Reason for Visit * Diagnostic Imaging (Routine) - Closed Specialty Diagnoses / Procedures Referred By Contac t Referred To Contact Radiology Diagnoses Right foot pain Left foot pain Procedures XR foot 3+ vw bilateral Surinder Rocha MD [address] [place] [address] Phone: tel: fax: Referral ID Status Reason Start Date Expiration Date Visits Re quested Visits Authorized Closed 02/04/2025 05/06/2026 1 1 Encounter Details Date Type Department Care Team (Latest Contact Info) Description 02/04/2025 9:00 AM EDT - 02/04/2025 11:59 PM EDT Hospital Encounter [facility] [address] [place] [address] Surinder Rocha MD [address] [place] [address] Right foot pain; Left foot [...] or training? Not on file Preferred Language Indian 08/18/2023 PHQ-2 Answer Date Recorded Patient Health [...] Description 03/30/2025 8:45 AM EST Office Visit [facility] [address] [place] [address] Surinder Rocha MD [address] [place] [address] 08/25/2025 8:30 AM EDT Appointment [place] [id number] documented as of this encounter Procedures Procedure Name Priority Date/Time Associated Diagnosis Comments XR FOOT 3+ VW BILATERAL Routine 02/04/2025 9:23 AM EDT Right foot pain Left foot pain documented in this encounter Results * XR Foot 3+ View Bilateral (02/04/2025 9:23 AM EDT) Anatomical Region Laterality Modality Lower Extremities, Foot Bilateral [facility] 02/09/2025 11:2 6 AM EDT Impressions 02/09/2025 11:30 AM EDT Impression: 1. No acute osseous findings. 2. No signs of crystalline or inflammatory arthropathy. 3. 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 4. Achilles and plantar spurs bilaterally. Electronically Signed: Oscar Hare MD 02/09/2025 11:30 AM EDT Workstation ID: [id number] Narrative 02/09/2025 11:30 AM EDT XR FOOT [...] and plantar spurs bilaterally. Electronically Signed: Oscar aHre MD 02/09/2025 11:30 AM EDT Workstation ID: [id number] us Surinder Rocha MD IMG DIAGNOSTIC IMAGING ORDERABL ES Final Result documented in this encounter Visit Diagnoses Diagnosis Right foot pain Pain in soft tissues of limb Left foot pain Pain in soft tissues of limb documented in this encounter Additional Health Concerns Assessment Noted Time PHQ-2 Depression Total Score: 1 05/20/19 24 12:36 PM EST documented as of this encounter Care Teams Learning Analyst Relationship Specialty Start Date End Date Surinder Rocha MD [address] [place] [id number] PCP - General Family Medicine 10/05/19 documented as of this encounter
--- OUTSIDE RECORDS SUMMARY | 2025-02-08 07:55 | XMS_ITS | Encounter Summary ---
Author Hub Preferred Language Swiss Marital Status Single Methodist Affiliation Unknown Race White Ethnic Group Not or Lati no [facility] [address] [place] [address] Care Team Providers Care Meat Smoker Name Role Phone Surinder Rocha MD Primary Care Provider [phone] Reason for Referral * Diagnostic Imaging (Routine) - Closed Specialty Diagnoses / Procedures Referred By Ezio harden Referred To Contact Radiology Diagnoses Abnormal mammogram Procedures Mammo Diagnostic Digital Tomosynthesis Bilateral With CAD Surinder Rocha MD [address] [place] [address] Phone: tel: fax: [facility] [address] [place] [address] Phone: tel: Referral ID Status Reason Start Date Expiration Date Visits Re quested Visits Authorized [id number] Closed 11/26/2024 02/25/2026 1 1 Reason for Visit * Diagnostic Imaging (Routine) - Closed Specialty Diagnoses / Procedures Referred By Contlen t Referred To Contact Radiology Diagnoses Abnormal mammogram Procedures Mammo Diagnostic Digital Tomosynthesis Bilateral With CAD Surinder Rocha MD [address] [place] [address] Phone: tel: fax: [facility] [place] [address] Phone: tel: Referral ID Status Reason Start Date Expiration Date Visits Re quested Visits Authorized [id number] Closed 11/26/2024 02/25/2026 1 1 Encounter Details Date Type Department Care Team (Latest Contact Info) Description 02/08/2025 7:55 AM EDT - 02/08/2025 11:59 PM EDT Hospital Encounter [facility] [place] [address] [place] [address] Abnormal mammogram Discharge Disposition: Home [...] or training? Not on file Preferred Language Swiss 08/18/2023 PHQ-2 Answer Date Recorded Patient Health [...] Description 03/30/2025 8:45 AM EST Office Visit [facility] [address] [facility] [place] [address] Surinder Rocha MD [address] [facility] [address] [place], [place] [id number] 08/25/2025 8:30 AM EDT Appointment [facility] [address] [place] [address] documented as of this encounter Procedures Procedure [...] documented as of this encounter Care Teams Meat Smoker Relationship Specialty Start Date End Date Surinder Rocha MD [address] [place] [address] PCP - General Family Medicine 6/2/20 documented as of this encounter
--- OUTSIDE RECORDS SUMMARY | 2025-02-08 10:51 | XMS_ITS | Encounter Summary ---
[facility] [address] [place] [address] Care Team Providers Care Senior Tech Manufacturing Engineering Name Role Phone Surinder Rocha MD Primary Care Provider [phone] Reason for Referral * Diagnostic Imaging (Routine) - Closed Specialty Diagnoses / Procedures Referred By Ezio t Referred To Contact Radiology Diagnoses Abnormal mammogram Procedures US Breast Bilateral Limited Surinder Rocha MD [address] [place] [address] Phone: tel: fax: [facility] [place] [address] [place] [address] Phone: tel: Referral ID Status Reason Start Date Expiration Date Visits Re quested Visits Authorized [id number] Closed 02/08/2025 05/10/2026 1 1 Reason for Visit * Diagnostic Imaging (Routine) - Closed Specialty Diagnoses / Procedures Referred By Contac t Referred To Contact Radiology Diagnoses Abnormal mammogram Procedures US Breast Bilateral Limited Surinder Rocha MD [address] [place] [address] Phone: tel: fax: [facility] [place] [address] Phone: tel: Referral ID Status Reason Start Date Expiration Date Visits Re quested Visits Authorized [id number] Closed 02/08/2025 05/10/2026 1 1 Encounter Details Date Type Department Care Team (Latest Contact Info) Description 02/08/2025 10:51 AM EDT - 02/08/2025 11:59 PM EDT Hospital Encounter [facility] [place] [address] [place] [address] Abnormal mammogram Discharge Disposition: Home [...] or training? Not on file Preferred Language Mexican 08/18/2023 PHQ-2 Answer Date Recorded Patient Health [...] Description 03/30/2025 8:45 AM EST Office Visit [facility] [address] [facility] [place] [address] Surinder Rocha MD [address] [place] [address] 08/25/2025 8:30 AM EDT Appointment [facility] [address] [place] [phone] documented as of this encounter Procedures Procedure [...] measuring 0.4 cm. us Nallely Handley MD [facility] US ORDERABLES Final Result documented in this encounter Visit Diagnoses Diagnosis Abnormal mammogram Abnormal mammogram, unspecified documented in this encounter Additional Health Concerns Assessment Noted Time PHQ-2 Depression Total Score: 1 05/20/19 24 12:36 PM EST documented as of this encounter Care Teams Senior Tech Manufacturing Engineering Relationship Specialty Start Date End Date Surinder Rocha MD [address] [place] [address] PCP - General Family Medicine 10/05/19 documented as of this encounter
--- OUTSIDE RECORDS SUMMARY | 2025-02-22 10:45 | XMS_ITS | Encounter Summary ---
[facility] Address [address] [place] [address] Care Team Providers Care Respite Worker Name Role Phone Surinder Rocha MD Primary Care Provider [phone] Reason for Visit * Reason Comments URI X 1 wk Urinary Tract Infection X 4 days ago Shortness of Breath Encounter Details Date Type Department Care Team (Late st Contact Info) Description 02/22/2025 10:45 AM EDT Office Visit [facility] [address] [place] [address] Surinder Rocha MD [address] [place], [place] [id number] Dysuria (Primary Dx); Acute non-recurrent maxillary sinusitis; [...] or training? 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 documented in this encounter Plan of Treatment Upcoming Encounters Date Type Department Care Team (Late st Contact Info) Description 03/30/2025 8:45 AM EST Office Visit [facility] [address] [place] [address] Surinder Rocha MD [address] [place] [address] 08/25/2025 8:30 AM EDT Appointment [facility] [address] [place] [id number] documented as of this encounter Procedures Procedure [...] 02/24/2025 3:07 AM EDT Performed at: - [facility] [address] [place], [place] [id number] Coater Helper: Vernon Garcia PhD, Phone: [phone] Surinder Rocha MD MICROBIOLOGY - GENERAL ORDERABL ES Final Result Performing Organization Address City/[facility]/ZIP Co de Phone Number [facility] [address] [place] [address], [place] [phone] [facility] [address] [place] [address], [place] [phone] * POCT urinalysis dipstick, automated (02/22/2025 10:42 AM EDT) Color Yellow Yellow, Straw, Dark Yellow, Kaila [facility] Clarity, UA Clear Clear [facility] Specific Albin 1.010 1.005 - 1.030 [facility] pH, Urine 6.0 5.0 - 8.0 [facility] Leukocytes Negative Negative [facility] Nitrite, UA Negative Negative [facility] Protein, POC Negative Negative mg/dL [facility] Glucose, UA Negative Negative mg/dL [facility] Ketones, UA Negative Negative [facility] Urobilinogen, UA Normal Normal, 0.2 E.U./dL [facility] Bilirubin Negative Negative [facility] Blood, UA Negative Negative [facility] Lot Number [id number] [facility] Expiration Date 05-27-2026 [facility] Urine 02/22/2025 10:4 2 AM EDT Surinder Rocha MD POINT OF CARE TEST ORDERABLES F inal Result [facility]
[address] [place] [address], documented in this encounter Visit Diagnoses Diagnosis Dysuria- Primary Acute non-recurrent maxillary sinusitis Seasonal allergic rhinitis, unspecified trigger Moderate persistent asthma with exacerbation Unspecified asthma, with exacerbation documented in this encounter Additional Health Concerns Assessment Noted Time PHQ-2 Depression Total Score: 1 05/20/19 24 12:36 PM EST documented as of this encounter Care Teams Respite Worker Relationship Specialty Start Date End Date Surinder Rocha MD [address] [place], [place] [id number] PCP - General Family Medicine 10/05/19 documented as of this encounter
--- OUTSIDE RECORDS SUMMARY | 2025-02-23 09:21 | XMS_ITS | Encounter Summary ---
[facility] Address [address] [place] [address] Care Team Providers Care Hazardous Waste Material Technician Name Role Phone Surinder Rocha MD Primary Care Provider [phone] Reason for Visit * Diagnostic Imaging (Routine) - Pending Review Specialty Diagnoses / Procedures Referred By Contac t Referred To Contact Radiology Diagnoses Abnormal mammogram Procedures US Fine Needle Aspiration BX 1st Lesion US Fine Needle Aspiration BX 1ST Lesion Surinder Rocha MD [address] [place] [address] Phone: tel: fax: [facility] [address] [place] [address] Phone: tel: Referral ID Status Reason Start Date Expiration Date V isits Requested Visits Authorized [id number] Pending Review 02/08/2025 05/10/2026 1 1 Encounter Details Date Type Department Care Team (Latest Contact Info) Description 02/23/2025 9:21 AM EDT - 02/23/2025 11:59 PM EDT Hospital Encounter [facility] [address] UL[address] [facility] [address] [place] [address] Abnormal mammogram Discharge Disposition: Home [...] or training? Not on file Preferred Language French 08/18/2023 PHQ-2 Answer Date Recorded Patient Health [...] by provider Daily. 11 g 5 02/22/2025 Fluticasone-Salmete rol (ADVAIR/WIXELA) 100-50 MCG/ACT DISKUSIndications:M oderate [...] by mouth Daily. 30 tablet 3 02/04/2025 prednisoLONE ODT (Orapred ODT) 15 MG disintegrating tabletIndications:A cute non-recurrent maxillary sinusitis Place 2 tablets on the tongue Daily. 10 tablet 02/22/2025 valACYclovir (Valtrex) 1000 MG tabletIndications:H SV infection [...] 7.5 mL PO BID 105 mL 02/22/2025 documented as of this encounter Plan of Treatment Upcoming Encounters Date Type Department Care Team (Late st Contact Info) Description 03/30/2025 8:45 AM EST Office Visit [facility] [address] [place] [address] Surinder Rocha MD [address] [place] [address] 08/25/2025 8:30 AM EDT Appointment [facility] [address] [place] [address] [place] [phone] documented as of this encounter Procedures Procedure Name Priority Date/Time Associated Diagnosis Comments US FINE NEEDLE ASPIRATION BX 1ST LESION Routine 02/23/2025 11:04 AM EDT Abnormal mammogram NON-QUALITY COORDINATOR CYTOLOGY, [facility] (PETRA, COR, MAD, MAAME) Routine 02/23/2025 10:43 AM EDT documented in this encounter Results * US Fine Needle Aspiration BX 1st Lesion (02/23/2025 11:04 AM EDT) Anatomical Region Laterality Modality Ultrasound 02/23/2025 12:1 8 PM EDT Impressions 02/24/2025 1:26 PM EDT Technically successful [...] FNA. No complications occurred during this procedure. Procedure Note Nallely Handley MD - 02/24/2025 ULTRASOUND-GUIDED FNA: RIGHT AXILLA HISTORY: 59-year-old patient [...] FNA. No complications occurred during this procedure. IMPRESSION: Technically successful ultrasound-guided FNA of a 1.2 [...] PM by Dr. Nallely Handley MD on us Nallely Handley MD [facility] [place]LES Final Result * NON-QUALITY COORDINATOR CYTOLOGY, [facility] (PETRA,COR,MAD,MAAME) (02/23/2025 10:43 AM [...] CD19, CD20, CD38, CD45, CD56, CD57, CD123, [place], and Lambda. Interpretation performed by Dr. Lin. [...] Result [facility]
[address] [place] [address], documented in this encounter Visit Diagnoses Diagnosis [...] documented as of this encounter Care Teams Hazardous Waste Material Technician Relationship Specialty Start Date End Date Surinder Rocha MD [facility] [place] [address] PCP - General Family Medicine 10/05/19 documented as of this encounter
--- OUTSIDE RECORDS SUMMARY | 2025-02-23 09:26 | XMS_ITS | Encounter Summary ---
[facility] Address [address] [place] [address] Care Team Providers Care Radioisotope Production Operator Name Role Phone Surinder Rocha MD Primary Care Provider [phone] Reason for Referral * Diagnostic Imaging (Routine) - Pending Review Specialty Diagnoses / Procedures Referred By Contac t Referred To Contact Radiology Diagnoses Abnormal mammogram Procedures Mammo Post Device Placement Right Nallely Handley MD [address] [place] [address] Phone: tel: fax: Referral ID Status Reason Start Date Expiration Date V isits Requested Visits Authorized [id number] Pending Review 02/23/2025 05/25/2026 1 1 Reason for Visit * Diagnostic Imaging (Routine) - Pending Review Specialty Diagnoses / Procedures Referred By Contlen harden Referred To Contact Radiology Diagnoses Abnormal mammogram Procedures Mammo Post Device Placement Right Nallely Handley MD [address] [address] Phone: tel: fax: Referral ID Status Reason Start Date Expiration Date V isits Requested Visits Authorized [id number] Pending Review 02/23/2025 05/25/2026 1 1 Encounter Details Date Type Department Care Team (Latest Contact Info) Description 02/23/2025 9:26 AM EDT - 02/23/2025 11:59 PM EDT Hospital Encounter [facility] [address] [place] [address] Abnormal mammogram Discharge Disposition: Home or Self [...] or training? Not on file Preferred Language Montenegrin 08/18/2023 PHQ-2 Answer Date Recorded Patient Health [...] 8:45 AM EST Office Visit [facility] [address] [place] [address] Surinder Rocha MD [address] [place] [address] 08/25/2025 8:30 AM EDT Appointment [facility] [address] [address] documented as of this encounter Procedures Procedure Name Priority Date/Time Associated Diagnosis Comments MAMMO POST DEVICE PLACEMENT RIGHT Routine 02/23/2025 11:03 AM EDT Abnormal mammogram documented in this encounter Results * Mammo Post Device Placement Right (02/23/2025 11:03 AM EDT) Anatomical Region Laterality Modality Breast Right Mammography 02/23/2025 12:1 8 PM EDT Impressions 02/24/2025 [...] Handley MD on us Nallely Handley MD [facility] ORDERABLES Fin al Result documented in this encounter Visit Diagnoses Diagnosis Abnormal mammogram Abnormal mammogram, unspecified documented in this encounter Additional Health Concerns Assessment Noted Time PHQ-2 Depression Total Score: 1 05/20/19 24 12:36 PM EST documented as of this encounter Care Teams Radioisotope Production Operator Relationship Specialty Start Date End Date Surinder Rocha MD [address] [place] [address] PCP - General Family Medicine 10/05/19 documented as of this encounter
[2025-03-02] VITALS (18 sets, daily range): BP systolic 103–148; BP diastolic 54–82; PULSE 65–86; RESP 13–21; TEMP 36.4–36.9; O2SAT 92–98; BMI 40.2
--- NOTE | 2025-03-02 09:48 | ECG_ITS ---
APPROVED REPORT Exam: Resting ECG HR:77 bpm ECG Measurements Heart Rate 77 AXES MD 180 P 59 QRSd 93 QRS 43 QT 392 T 78 QTc 424 Conclusion SINUS RHYTHM LOW QRS VOLTAGE IN PRECORDIAL LEADS [QRS DEFLECTION < 1.0 mV IN CHEST LEADS] INCOMPLETE RIGHT BUNDLE BRANCH BLOCK [90+ ms QRS DURATION, TERMINAL R IN V1/V2, 40+ ms S IN I/aVL/V4/V5/V6] BORDERLINE ECG UNCONFIRMED REPORT Normal sinus rhythm. No ST elevation or depression. QTc 424 Electronically signed by : KEVIN SCHOFIELD, 03/02/2025 13:06:15
--- NOTE | 2025-03-02 10:02 | HMH.PHAINT1 ---
Pharmacy Intervention Comments: MEDICATION RECONCILIATION COMPLETED ON PATIENT USING EXTERNAL FILL HISTORY FROM PHARMACY AND [facility] REPORT. -KAT ABRAHAM, MARIOD
--- NOTE | 2025-03-02 10:04 | PC.NURSE ---
attempted x2 to stick patient. unsuccessful. another rn attempted and unsuccessful.
--- OUTSIDE RECORDS SUMMARY | 2025-03-02 10:14 | XMS_ITS | Encounter Summary ---
Author Organization [facility] Address [address] [place] [address] Care Team Providers Care Herb Counselor Name Role Phone Surinder Rocha MD Primary Care Provider Encounter Details Date Type Department Care Team (Late st Contact Info) Description 02/24/2025 Telephone [facility] [address] [address] Rosalba Irizarry RN Social History Tobacco Use [...] or training? Not on file Preferred Language Ugandan 08/18/2023 PHQ-2 Answer Date Recorded Patient Health [...] [facility] [address] [place] [address] Surinder Rocha MD [address] [place] [address] 08/25/2025 8:30 AM EDT Appointment [place] [address] [address] documented as of this encounter Visit Diagnoses Not on filedocumented in this encounter Additional Health Concerns Assessment Noted Time PHQ-2 Depression Total Score: 1 05/20/19 24 12:36 PM EST documented as of this encounter Care Teams Herb Counselor Relationship Specialty Start Date End Date Surinder Rocha MD [address] [place] [address] PCP - General Family Medicine 10/05/19 documented as of this encounter
--- OUTSIDE RECORDS SUMMARY | 2025-03-02 10:14 | XMS_ITS | Encounter Summary ---
[facility] Address [address] [place] [address] Care Team Providers Care Duplicating Machine Operator Name Role Phone Surinder Rocha MD Primary Care Provider [phone] Reason for Visit * Reason Onset Date Comments PAPERWORK 02/09/2025 Encounter Details Date Type Department Care Team (Late st Contact Info) Description 02/09/2025 Telephone [facility]ILY MEDICINE [address] [place] [address] Surinder Rocha MD [address] [place], [place] [id number] PAPERWORK Social History Tobacco Use Types Packs/Day [...] or training? Not on file Preferred Language Paraguayan 08/18/2023 PHQ-2 Answer Date Recorded Patient Health [...] Chase Relationship: Self Best call back number: [phone] What was the call regarding: REQUESTING A STATUS UPDATE ON THE PAPERWORK THAT WAS SENT OVER [facility] documented in this encounter Plan of Treatment Upcoming Encounters Date Type Department Care Team (Late st Contact Info) Description 03/30/2025 8:45 AM EST Office Visit [facility] [address] [place] [address] Surinder Rocha MD [address] [place] [address] 08/25/2025 8:30 AM EDT Appointment [address] [place] [address] documented as of this encounter Visit Diagnoses Not on filedocumented in this encounter Additional Health Concerns Assessment Noted Time PHQ-2 Depression Total Score: 1 05/20/19 24 12:36 PM EST documented as of this encounter Care Teams Duplicating Machine Operator Relationship Specialty Start Date End Date Surinder Rocha MD [address] [place] [address] PCP - General Family Medicine 10/05/19 documented as of this encounter
--- OUTSIDE RECORDS SUMMARY | 2025-03-02 10:14 | XMS_ITS | Encounter Summary ---
[facility] [address] [place] [address] Care Team Providers Care Map And Chart Mounter Name Role Phone Surinder Smiley MD Primary Care Provider [phone] Reason for Visit * Reason Onset Date Comments Med Management 02/24/2025 Encounter Details Date Type Department Care Team (Late st Contact Info) Description 02/24/2025 Telephone [facility] MEDICINE [address] [place] [address] Surinder Smiley MD [address] [place], [place] [phone] Med Management Social History Tobacco Use Types [...] or training? Not on file Preferred Language Cuban 08/18/2023 PHQ-2 Answer Date Recorded Patient Health [...] 8:45 AM EST Office Visit [facility] [address] [place] [address] Surinder Smiley MD [address] [place], [place] [id number] 08/25/2025 8:30 AM EDT Appointment [address] [address] documented as of this encounter Visit Diagnoses Not on filedocumented in this encounter Additional Health Concerns Assessment Noted Time PHQ-2 Depression Total Score: 1 05/20/19 24 12:36 PM EST documented as of this encounter Care Teams Map And Chart Mounter Relationship Specialty Start Date End Date Surinder Smiley MD [address] [place] [address] PCP - General Family Medicine 10/05/19 documented as of this encounter
--- OUTSIDE RECORDS SUMMARY | 2025-03-02 10:14 | XMS_ITS | Encounter Summary ---
[facility] Address [address] [place] [address] Care Team Providers Care Metal Furnace Operator Name Role Phone Surinder Rocha MD Primary Care Provider [phone] Encounter Details Date Type Department Care Team (Late st Contact Info) Description 02/09/2025 Results Follow-Up [facility] FAMILY MEDICINE [address] [place] [address] Surinder Rocha MD [address] [place], [place] [id number] Social History Tobacco Use Types Packs/Day Years [...] Description 03/30/2025 8:45 AM EST Office Visit [facility] [address] [facility] [place] [address] Surinder Rocha MD [address] [place] [address] 08/25/2025 8:30 AM EDT Appointment [address] [address] documented as of this encounter Visit Diagnoses Not on filedocumented in this encounter Additional Health Concerns Assessment Noted Time PHQ-2 Depression Total Score: 1 05/20/19 24 12:36 PM EST documented as of this encounter Care Teams Metal Furnace Operator Relationship Specialty Start Date End Date Surinder Rocha MD [address] [place] [address] PCP - General Family Medicine 10/05/19 documented as of this encounter
--- OUTSIDE RECORDS SUMMARY | 2025-03-02 10:14 | XMS_ITS | Encounter Summary ---
Author Organization [facility] Address [address] [place] [address] Care Team Providers Care Rubber Goods Cutter Finisher Name Role Phone Surinder Rocha MD Primary Care Provider [phone] Encounter Details Date Type Department Care Team (Late st Contact Info) Description 02/15/2025 Results Follow-Up [facility] RISK ASSESSMENT [address] [place] [address] Ca Levy Social History Tobacco [...] or training? Not on file Preferred Language Sri Lankan 08/18/2023 PHQ-2 Answer Date Recorded Patient Health [...] [facility] FAM[facility] MEDIC[facility] [address] [place] [place] [phone] Surinder Rocha MD [address] [place] [address] 08/25/2025 8:30 AM EDT Appointment [facility] [address] [place] [id number] documented as of this encounter Visit Diagnoses Not on filedocumented in this encounter Additional Health Concerns Assessment Noted Time PHQ-2 Depression Total Score: 1 05/20/19 24 12:36 PM EST documented as of this encounter Care Teams Rubber Goods Cutter Finisher Relationship Specialty Start Date End Date Surinder Rocha MD [address] [place] [address] PCP - General Family Medicine 10/05/19 documented as of this encounter
--- OUTSIDE RECORDS SUMMARY | 2025-03-02 10:14 | XMS_ITS | Encounter Summary ---
[facility] [address] [place] [address] Care Team Providers Care Office Technologist Name Role Phone Surinder Rocha MD Primary Care Provider [phone] Encounter Details Date Type Department Care Team [...] or training? Not on file Preferred Language Guinean 08/18/2023 PHQ-2 Answer Date Recorded Patient Health [...] Office Visit [facility] FAM[facility] MEDICINE [address] [place] [address] Surinder Rocha MD [address] [place] [address] 08/25/2025 8:30 AM EDT Appointment [place] [id number] documented as of this encounter Visit Diagnoses Not on filedocumented in this encounter Additional Health Concerns Assessment Noted Time PHQ-2 Depression Total Score: 1 05/20/19 24 12:36 PM EST documented as of this encounter Care Teams Office Technologist Relationship Specialty Start Date End Date Surinder Rocha MD [address] [place] [address] PCP - General Family Medicine 10/05/19 documented as of this encounter
--- OUTSIDE RECORDS SUMMARY | 2025-03-02 10:14 | XMS_ITS | Encounter Summary ---
[facility] [address] [place] [address] Care Team Providers Care Intensive Care Nurse Name Role Phone Surinder Rocha MD Primary Care Provider [phone] Reason for Visit * Reason Comments Med Refill Encounter Details Date Type Department Care Team (Late st Contact Info) Description 02/07/2025 Refill [facility] MEDICINE [address] [place] [address] Jeanette Hooks, MAXX [address] [place] [address] Moderate persistent asthma with exacerbation; Acquired hypothyroidism [...] Description 03/30/2025 8:45 AM EST Office Visit [facility] 210 [facility] [place] [address] Surinder Rocha MD [address] [place] [address] 08/25/2025 8:30 AM EDT Appointment [place] [id number] documented as of this encounter Visit Diagnoses Diagnosis Moderate persistent asthma with exacerbation Unspecified asthma, with exacerbation Acquired hypothyroidism Unspecified hypothyroidism documented in this encounter Additional Health Concerns Assessment Noted Time PHQ-2 Depression Total Score: 1 05/20/19 24 12:36 PM EST documented as of this encounter Care Teams Intensive Care Nurse Relationship Specialty Start Date End Date Surinder Rocha MD [address] [place] [address] PCP - General Family Medicine 10/05/19 documented as of this encounter
--- OUTSIDE RECORDS SUMMARY | 2025-03-02 10:14 | XMS_ITS | Encounter Summary ---
Author Organization [facility] yste Address [address] [place] [address] Care Team Providers Care Sizing Sprayer Name Role Phone Surinder Rocha MD Primary Care Provider [phone] Reason for Visit * Reason Comments Med Refill Encounter Details Date Type Department Care Team (Late st Contact Info) Description 02/22/[address] [facility] FAMILY MEDICINE [address] [place] [address] Jeanette Hooks, MAXX [address] [place] [address] Moderate persistent asthma with exacerbation Social History [...] or training? Not on file Preferred Language Rwandan 08/18/2023 PHQ-2 Answer Date Recorded Patient Health [...] Description 03/30/2025 8:45 AM EST Office Visit [facility] 210 [facility] [place] [address] Surinder Rocha MD [address] [address] 08/25/2025 8:30 AM EDT Appointment [place] [id number] documented as of this encounter Visit Diagnoses Diagnosis Moderate persistent asthma with exacerbation Unspecified asthma, with exacerbation documented in this encounter Additional Health Concerns Assessment Noted Time PHQ-2 Depression Total Score: 1 05/20/19 24 12:36 PM EST documented as of this encounter Care Teams Sizing Sprayer Relationship Specialty Start Date End Date Surinder Rocha MD [address] [place] [address] PCP - General Family Medicine 10/05/19 documented as of this encounter
--- OUTSIDE RECORDS SUMMARY | 2025-03-02 10:14 | XMS_ITS | Encounter Summary ---
[facility] Address [address] [place] [address] Care Team Providers Care Wheel Setter Name Role Phone Surinder Rocha MD Primary Care Provider [phone] Encounter Details Date Type Department Care Team [...] or training? Not on file Preferred Language Maltese 08/18/2023 PHQ-2 Answer Date Recorded Patient Health [...] [facility] [address] [place] [address] Surinder Rocha MD [address] [place] [address] 08/25/2025 8:30 AM EDT Appointment [place] [phone] documented as of this encounter Visit Diagnoses Not on filedocumented in this encounter Additional Health Concerns Assessment Noted Time PHQ-2 Depression Total Score: 1 05/20/19 24 12:36 PM EST documented as of this encounter Care Teams Wheel Setter Relationship Specialty Start Date End Date Surinder Rocha MD [address] [place] [address] PCP - General Family Medicine 10/05/19 documented as of this encounter
--- OUTSIDE RECORDS SUMMARY | 2025-03-02 10:14 | XMS_ITS | Encounter Summary ---
[facility] Address [address] [place] [address] Care Team Providers Care Acquisition Lead Name Role Phone Surinder Rocha MD Primary Care Provider [phone] Reason for Visit * Reason Onset Date Comments PHARMACY CALLS 03/01/2025 Encounter Details Date Type Department Care Team (Late st Contact Info) Description 03/01/2025 Telephone [facility] FAMILY MEDICINE [address] [place] [address] Surinder Rocha MD [address] [place], [place] [phone] PHARMACY CALLS Social History Tobacco Use Types [...] 03/01/2025 9:31 AM EDT Pharmacy Name: [facility] - [place], [place] - [address] [phone] [facility] [phone] Pharmacy customer counter representative name: [facility] Pharmacy customer counter representative phone number: [phone] What medication are you calling in regards [...] [facility] MEDICINE [address] [place] [address] Surinder Rocha MD [address] [place] [address] 08/25/2025 8:30 AM EDT Appointment [place] [phone] documented as of this encounter Visit Diagnoses Not on filedocumented in this encounter Additional Health Concerns Assessment Noted Time PHQ-2 Depression Total Score: 1 05/20/19 24 12:36 PM EST documented as of this encounter Care Teams Acquisition Lead Relationship Specialty Start Date End Date Surinder Rocha MD [address] [place] [address] PCP - General Family Medicine 10/05/19 documented as of this encounter
--- OUTSIDE RECORDS SUMMARY | 2025-03-02 10:14 | XMS_ITS | Encounter Summary ---
Author Organization [facility] Address [address] [place] [address] Care Team Providers Care Chair Spring Assembler Name Role Phone Surinder Rocha MD Primary Care Provider [phone] Encounter Details Date Type Department Care Team (Late st Contact Info) Description 02/25/2025 Telephone [facility] [address] [address] Rosalba Irizarry RN Social History Tobacco Use [...] or training? Not on file Preferred Language Argentine 08/18/2023 PHQ-2 Answer Date Recorded Patient Health [...] support given, verbalized understanding. Patient transferred to [facility] scheduling per request to warren clarke recommended follow-up documented in this encounter Plan of Treatment Upcoming Encounters Date Type Department Care Team (Late st Contact Info) Description 03/30/2025 8:45 AM EST Office Visit [facility] [address] [place] [address] Surinder Rocha MD [address] [place], [place] [address] 08/25/2025 8:30 AM EDT [address] [address] documented as of this encounter Visit Diagnoses Not on filedocumented in this encounter Additional Health Concerns Assessment Noted Time PHQ-2 Depression Total Score: 1 05/20/19 24 12:36 PM EST documented as of this encounter Care Teams Chair Spring Assembler Relationship Specialty Start Date End Date Surinder Rocha MD [address] [place] [address] PCP - General Family Medicine 10/05/19 documented as of this encounter
--- OUTSIDE RECORDS SUMMARY | 2025-03-02 10:14 | XMS_ITS | Encounter Summary ---
[facility] Address [address] [place] [address] Care Team Providers Care Resort Keeper Name Role Phone Surinder Rocha MD Primary Care Provider [phone] Reason for Visit * Reason Onset Date Comments New Med Request 02/25/2025 Encounter Details Date Type Department Care Team (Late st Contact Info) Description 02/25/2025 Telephone [facility] FAMILY MEDICINE [address] [place] [address] Surinder Rocha MD [address] [place], [place] [phone] New Med Request Social History Tobacco Use [...] [facility] [place] - [address] [phone] [facility] [phone] Additional notes: PATIENT WAS PRESCRIBED THIS ANTIBIOTIC A LIQUID FORM, BUT IT IS VERY HARD ON HER STOMACH. PATIENT IS WANTING TO KNOW IF A PILL FORM CAN BE CALLED IN INSTEAD documented in this encounter Plan of Treatment Upcoming Encounters Date Type Department Care Team (Late st Contact Info) Description 03/30/2025 8:45 AM EST Office Visit [facility] MEDICINE [address] [place] [address] Surinder Rocha MD [address] [place] [address] 08/25/2025 8:30 AM EDT Appointment [place] [phone] documented as of this encounter Visit Diagnoses Not on filedocumented in this encounter Additional Health Concerns Assessment Noted Time PHQ-2 Depression Total Score: 1 05/20/19 24 12:36 PM EST documented as of this encounter Care Teams Resort Keeper Relationship Specialty Start Date End Date Surinder Rocha MD [address] [place] [address] PCP - General Family Medicine 10/05/19 documented as of this encounter
--- OUTSIDE RECORDS SUMMARY | 2025-03-02 10:15 | XMS_ITS | Encounter Summary ---
[facility] Address [address] [place] [address] Care Team Providers Care Charge Gang Weigher Name Role Phone Surinder Rocha MD Primary Care Provider Encounter Details Date Type Department Care Team (Late st Contact Info) Description 11/25/2024 Results Follow-Up [facility] FAMILY MEDICINE [address] [place] [address] Surinder Rocha MD [address] [place], [place] [phone] Social History Tobacco Use Types Packs/Day Years [...] or training? Not on file Preferred Language Vincentian 08/18/2023 PHQ-2 Answer Date Recorded Patient Health [...] Office Visit [facility] MEDICINE 210 [facility] [place] [address] Surinder Rocha MD [address] [place] [address] 08/25/2025 8:30 AM EDT Appointment [address] [address] documented as of this encounter Visit Diagnoses Not on filedocumented in this encounter Additional Health Concerns Assessment Noted Time PHQ-2 Depression Total Score: 1 05/20/19 24 12:36 PM EST documented as of this encounter Care Teams Charge Gang Weigher Relationship Specialty Start Date End Date Surinder Rocha MD [address] [place] [address] PCP - General Family Medicine 10/05/19 documented as of this encounter
--- OUTSIDE RECORDS SUMMARY | 2025-03-02 10:15 | XMS_ITS | Encounter Summary ---
[facility] Address [address] [place] [address] Care Team Providers Care Pizza Chef Name Role Phone Surinder Rocha MD Primary Care Provider [phone] Encounter Details Date Type Department Care Team [...] or training? Not on file Preferred Language Tongan 08/18/2023 PHQ-2 Answer Date Recorded Patient Health [...] [facility] [address] [place] [address] Surinder Rocha MD [address] [place] [address] 08/25/2025 8:30 AM EDT Appointment [place] [phone] documented as of this encounter Visit Diagnoses Not on filedocumented in this encounter Additional Health Concerns Assessment Noted Time PHQ-2 Depression Total Score: 1 05/20/19 24 12:36 PM EST documented as of this encounter Care Teams Pizza Chef Relationship Specialty Start Date End Date Surinder Rocha MD [address] [place] [address] PCP - General Family Medicine 10/05/19 documented as of this encounter
--- OUTSIDE RECORDS SUMMARY | 2025-03-02 10:16 | XMS_ITS | Clinical Summary ---
[facility] Address [address] [place] [address] Care Team Providers Care Office Executive Name Role Phone Surinder Rocha MD Primary Care Provider [phone] Allergies Active Allergy Reactions Criticality Noted Date [...] Date Type Department Care Team Description 03/01/2025 [facility] [address] [place] [address] Surinder Rocha MD PHARMACY CALLS 02/25/2025 [facility] [address] [place] [address] Surinder Rocha MD New Med Request 02/25/2025 Telephone [facility] [address] [address] Rosalba Irizarry RN 02/24/2025 [facility] [address] [place] [address] Surinder Rocha MD Med Management 02/24/2025 [facility] [address] [address] [place] [address] Rosalba Irizarry RN 02/23/2025 9:26 AM EDT - 02/23/2025 11:59 PM EDT Hospital Encounter [facility] [address] [facility] [address] [place] [address] Abnormal mammogram Discharge Disposition: Home or Self Care 02/23/2025 9:21 AM EDT - 02/23/2025 11:59 PM EDT Hospital Encounter [facility] [address] [facility] [address] [facility] [address] [place] [address] Abnormal mammogram Discharge Disposition: Home or Self Care 02/22/2025 10:45 AM EDT Office Visit [facility] [address] [place] [address] Surinder Rocha MD Dysuria (Primary Dx); Acute non-recurrent maxillary sinusitis; Seasonal allergic rhinitis, unspecified trigger; Moderate persistent asthma with exacerbation 02/22/2025 Refill [facility] [address] [place] [address] Jeanette Hooks PA-C Moderate persistent asthma with exacerbation 02/22/2025 Travel 02/15/2025 Results Follow-Up [facility]K [facility] [address] [place] [address] [place] 02/09/2025 Results Follow-Up [facility] [address] [place] [address] Surinder Rocha MD 02/09/2025 Telephone [facility] [address] [place] [address] Surinder Rocha MD PAPERWORK 02/08/2025 10:51 AM EDT - 02/08/2025 11:59 PM EDT Hospital Encounter [facility] [place] [address] [facility] [address] [place] [address] Abnormal mammogram Discharge Disposition: Home or Self Care 02/08/2025 7:55 AM EDT - 02/08/2025 11:59 PM EDT Hospital Encounter [facility] [place] [address] [facility] [address] [place] [address] Abnormal mammogram Discharge Disposition: Home or Self Care 02/08/2025 Travel 02/07/2025 Refill [facility] [address] [place] [address] Jeanette Hooks PA-C Moderate persistent asthma with exacerbation; Acquired hypothyroidism 02/04/2025 9:00 AM EDT - 02/04/2025 11:59 PM EDT Hospital Encounter [facility] [address] [place] [address] Surinder Rocha MD Right foot pain; Left foot pain Discharge Disposition: Home or Self Care 02/04/2025 8:30 AM EDT Office Visit [facility] [address] [place] [address] Surinder Rocha MD Fall in home, initial encounter (Primary Dx); Right foot pain; Left foot pain; Acute URI; Chronic idiopathic constipation; Poor balance 02/04/2025 Travel 12/03/2024 Telephone [facility] [address] [place] [address] Surinder Rocha MD PAPERWORK REQUEST 11/30/2024 Telephone [facility] [address] [place] [address] Surinder Rocha MD PHARMACY CALLS 11/30/2024 Refill [facility] [address] [place] [address] Jeanette Hooks PA-C Moderate persistent [...] or training? Not on file Preferred Language Azerbaijani 08/18/2023 PHQ-2 Answer Date Recorded Patient Health [...] Description 03/30/2025 8:45 AM EST Office Visit [facility] [address] [address] Surinder Rocha MD [address] [address] 08/25/2025 8:30 AM EDT Appointment [facility] [address] [place] [address] Health Maintenance Due Date Last Done Comments [...] Procedure Name Priority Date/Time Associated Diagnosis Comments SCANNED EKG 03/01/2025 SCANNED - LABS 03/01/2025 SCANNED - LABS 03/01/2025 SCANNED - IMAGING 03/01/2025 US FINE NEEDLE ASPIRATION BX 1ST LESION Routine 02/23/2025 11:04 AM EDT Abnormal mammogram MAMMO POST DEVICE PLACEMENT RIGHT Routine 02/23/2025 11:03 AM EDT Abnormal mammogram NON-PREPARATION CENTER COORDINATOR CYTOLOGY, [facility] (PETRA, COR, MAD, [...] Recently Relevant to Health Maintenance Results * ECG Scan (03/01/2025) us Surinder Rocha MD ECG ORDERABLES Final Result * IMAGING SCANNED (03/01/2025) Anatomical Region Laterality Modality Radiographic Yanira ging us Surinder Rocha MD IMG DIAGNOSTIC IMAGING ORDERABL ES Final Result * LABS SCANNED (03/01/2025) Only the most recent of2 resultswithin the time period is included. us Surinder Rocha MD LAB BLOOD ORDERABLES Final Resu lt * US Fine Needle Aspiration BX 1st [...] Handley MD on us Nallely Handley MD [facility] US ORDERABLES Final Result * Mammo Post [...] Handley MD on us Nallely Handley MD IM MAMMOGRAPHY ORDERABLES Fin al Result * NON-PREPARATION CENTER COORDINATOR CYTOLOGY, [facility] (PETRA,COR,MAD,MAAME) (02/23/2025 10:43 [...] CD19, CD20, CD38, CD45, CD56, CD57, CD123, [place]lock, and Lambda. Interpretation performed by Dr. Lin. [...] Result [facility]
[address] [place] [address], * Urine Culture - Urine, Urine, Clean Catch (02/22/2025 10:53 AM EDT) Urine Culture Final report [facility] Result 1 Comment [facility] Comment: Mixed urogenital cely Less than 10,000 colonies/mL Urine Urine specimen obtained by clean catch procedure / Unknown 02/22/2025 10:53 AM EDT 02/22/2025 Comment: Narrative [facility] ([facility]) - 02/24/2025 3:07 AM EDT Performed at: 01 - [facility] [address] [place], [place] [id number] Linotype Mechanic: Vernon Garcia PhD, Phone: [phone] us Surinder Rocha MD MICROBIOLOGY - GENERAL ORDERABL ES Final Result Performing Organization Address City/[facility]/ZIP Co de Phone Number [facility] [address] [place] [address], [place] [phone] [facility] [address] [place] [address], [place] [phone] * POCT urinalysis dipstick, automated (02/22/2025 10:42 AM EDT) Color Yellow Yellow, Straw, Dark Yellow, Kaila [facility] Clarity, UA Clear Clear [facility] Specific [place] 1.010 1.005 - 1.030 [facility] pH, Urine 6.0 5.0 - 8.0 [facility] Leukocytes Negative Negative [facility] Nitrite, UA Negative Negative [facility] Protein, POC Negative Negative mg/dL [facility] Glucose, UA Negative Negative mg/dL [facility] Ketones, UA Negative Negative [facility] Urobilinogen, UA Normal Normal, 0.2 E.U./dL [facility] Bilirubin Negative Negative [facility] Blood, UA Negative Negative [facility] Lot Number [id number] [facility] Expiration Date 05-27-2026 [facility] Urine 02/22/2025 10:4 2 AM EDT us Surinder Rocha MD POINT OF CARE TEST ORDERABLES F inal Result [facility]
[address] [place] [id number], [place] [phone] * (ABNORMAL) AMBRY GENETIC RISK ASSESSMENT QUESTIONNAIRE - , (02/15/2025 9:55 AM EDT) [employer] 13.4 [facility] GENETICS NCCN NCCN met(A) [facility] Comment:High Risk Cancer Ris k Assessment 02/15/2025 9:55 AM EDT us Surinder Rocha MD GENETIC TESTING Final Result [facility]
[address] [place] [address], [place] [phone] * (ABNORMAL) US Breast Bilateral Limited (02/08/2025 [...] PM by Dr. Nallely Handley MD on Workstation: [employer] Narrative 02/08/2025 3:55 PM EDT BILATERAL DIAGNOSTIC [...] cancer or ovarian cancer on her current Tyrer-zi risk assessment questionnaire. The estimated lifetime risk [...] measuring 0.4 cm. us Nallely Handley MD [facility] US ORDERABLES Final Result * (ABNORMAL) Mammo [...] PM by Dr. Nallely Handley MD on Workstation: [employer] Narrative 02/08/2025 3:55 PM EDT BILATERAL DIAGNOSTIC [...] cancer or ovarian cancer on her current [facility] risk assessment questionnaire. The estimated lifetime risk [...] measuring 0.4 cm. us Surinder Rocha MD IM MAMMOGRAPHY ORDERABLES Patience l Result * XR [...] MD 02/09/2025 11:30 AM EDT Workstation ID: [id number] Narrative 02/09/2025 11:30 AM EDT XR FOOT [...] MD 02/09/2025 11:30 AM EDT Workstation ID: [id number] us Surinder Rocha MD IMG DIAGNOSTIC IMAGING ORDERABL ES Final Result * (ABNORMAL) Lipid Panel (04/07/2024 10:43 AM EST) [facility] Total Cholesterol 170 0 - 200 mg/dL [...] 10:4 3 AM EST 04/07/2024 Narrative [facility] ([facility]) - 2024 3:09 AM EST Performed at: [address] [place] [id number] Linotype Mechanic: Forrest Box MD, Phone: [phone] Patient Fasting: Y Surinder Rocha MD LAB BLOOD ORDERABLES Final Resu lt [facility]) [address] [place] [address], [place] [phone] [facility] [address] [place] [address], [place] [phone] * IMAGING SCANNED (12/06/2023) [facility] CH[facility] Final Re sult * [...] with a HCV Nucleic Acid Amplification test (760001). Blood 04/14/2019 10:4 8 AM EST 04/14/2019 Narrative [facility] - 04/17/2019 7:08 AM EST Performed at: 02 - [facility] [address] [place] [id number] Linotype Mechanic: Vernon Garcia PhD, Phone: [phone] Surinder Rocha MD LAB BLOOD ORDERABLES Final Resu lt [facility] ([facility]) [address] [place] [address], [place] [phone] [facility] [address] [place] [address], [place] [phone] from Last 3 Months or Most Recently [...] Of Support Discussed With: Patient Care Teams Office Executive Relationship Specialty Start Date End Date Surinder Rocha MD [address] [place] [address] PCP - General Family Medicine 10/05/19
--- OUTSIDE RECORDS SUMMARY | 2025-03-02 10:16 | XMS_ITS | Encounter Summary ---
[facility] [address] [place] [address] Care Team Providers Care Director Hospice Operations Name Role Phone Surinder Rocha MD Primary Care Provider Reason for Visit * Reason Onset Date Comments Med Refill 11/09/2019 Encounter Details Date Type Department Care Team (Late st Contact Info) Description 11/09/2019 Refill [facility] [address] [place] [address] January Flores DO [address] [place], [place] [id number] Adjustment disorder with anxious mood; Insomnia, unspecified [...] Visit [facility] [address] [place] [address] Surinder Rocha MD [address] [place] [address] 08/25/2025 8:30 AM EDT Appointment [address] [address] documented as of this encounter Visit Diagnoses Diagnosis Adjustment disorder with anxious mood Adjustment disorder with anxiety Insomnia, unspecified type documented in this encounter Additional Health Concerns Infection Onset Date Last Indicated Resolved Time COVID Screen (preop/placement) 04/24/2020 04/24/2020 04/25/2020 1:35 AM EST COVID Screen (preop/placement) 08/19/2020 08/19/2020 08/19/2020 3:31 AM EDT documented as of this encounter Care Teams Director Hospice Operations Relationship Specialty Start Date End Date Surinder Rocha MD [address] [place] [address] PCP - General Family Medicine 10/05/19 documented as of this encounter
--- OUTSIDE RECORDS SUMMARY | 2025-03-02 10:16 | XMS_ITS | Encounter Summary ---
[facility] [address] [place] [address] Care Team Providers Care Spot Welder Body Assembly Name Role Phone Surinder Rocha MD Primary Care Provider [phone] Reason for Visit * Reason Comments Med Refill Encounter Details Date Type Department Care Team (Late st Contact Info) Description 10/07/2019 Refill [facility] [address] [place] [address] Surinder Rocha MD [address] [place], [place] [id number] Complicated migraine Social History Tobacco Use Types [...] CENTER [facility] [address] [place] [phone] Surinder Rocha MD [address] [place] [address] 08/25/2025 8:30 AM EDT Appointment [address] [address] documented as of this encounter Visit Diagnoses Diagnosis Complicated migraine Migraine, unspecified, without mention of intractable migraine without mention of status migrainosus documented in this encounter Additional Health Concerns Infection Onset Date Last Indicated Resolved Time COVID Screen (preop/placement) 04/24/2020 04/24/2020 04/25/2020 1:35 AM EST COVID Screen (preop/placement) 08/19/2020 08/19/2020 08/19/2020 3:31 AM EDT documented as of this encounter Care Teams Spot Welder Body Assembly Relationship Specialty Start Date End Date Surinder Rocha MD [address] [place] [address] PCP - General Family Medicine 10/05/19 documented as of this encounter
--- OUTSIDE RECORDS SUMMARY | 2025-03-02 10:16 | XMS_ITS | Encounter Summary ---
[facility] Address [address] [place] [address] Care Team Providers Care Chain Builder Name Role Phone Surinder Rocha MD Primary Care Provider Reason for Visit * Reason Comments Med Refill Encounter Details Date Type Department Care Team (Late st Contact Info) Description 07/13/2021 Refill [facility] [address] [place] [address] Surinder Rocha MD [address] [place], [place] [phone] Gastroesophageal reflux disease, unspecified whether esophagitis present; [...] Description 03/30/2025 8:45 AM EST Office Visit [facility] [address] [place] [address] Surinder Rocha MD [address] [place] [address] 08/25/2025 8:30 AM EDT Appointment [address] [address] documented as of this encounter Visit Diagnoses Diagnosis Gastroesophageal reflux disease, unspecified whether esophagitis present Adjustment disorder with anxious mood Adjustment disorder with anxiety Idiopathic peripheral neuropathy Unspecified hereditary and idiopathic peripheral neuropathy Insomnia, unspecified type documented in this encounter Care Teams Chain Builder Relationship Specialty Start Date End Date Surinder Rohca MD [address] [place] [address] PCP - General Family Medicine 10/05/19 documented as of this encounter
--- OUTSIDE RECORDS SUMMARY | 2025-03-02 10:16 | XMS_ITS | Encounter Summary ---
[facility] [address] [place] [address] Care Team Providers Care Scroll Assembler Name Role Phone Surinder Rocha MD Primary Care Provider [phone] Encounter Details Date Type Department Care Team (Late st Contact Info) Description 09/09/2024 Results Follow-Up [facility] [address] [place] [address] Surinder Rocha MD [address] [place], [place] [id number] Social History Tobacco Use Types Packs/Day Years [...] or training? Not on file Preferred Language Anguillan 08/18/2023 PHQ-2 Answer Date Recorded Patient Health [...] Office Visit [facility] [address] [facility] [place] [address] Surinder Rocha MD [address] [place] [address] 08/25/2025 8:30 AM EDT Appointment [address] [address] documented as of this encounter Visit Diagnoses Not on filedocumented in this encounter Additional Health Concerns Assessment Noted Time PHQ-2 Depression Total Score: 1 05/20/19 24 12:36 PM EST documented as of this encounter Care Teams Scroll Assembler Relationship Specialty Start Date End Date Surinder Rocha MD [address] [place] [address] PCP - General Family Medicine 10/05/19 documented as of this encounter
--- OUTSIDE RECORDS SUMMARY | 2025-03-02 10:16 | XMS_ITS | Encounter Summary ---
[facility] [address] [place] [address] Care Team Providers Care Combining Machine Operator Name Role Phone Surinder Rocha MD Primary Care Provider Reason for Visit * Reason Comments Med Refill Encounter Details Date Type Department Care Team (Late st Contact Info) Description 11/06/2019 Refill [facility] [address] [place] [phone] January Flores DO [address] [place] [address] Insomnia, unspecified type Social History Tobacco Use [...] [facility] [address] [place] [address] Surinder Rocha MD [address] [place] [address] 08/25/2025 8:30 AM EDT Appointment [place] [id number] documented as of this encounter Visit Diagnoses Diagnosis Insomnia, unspecified type documented in this encounter Additional Health Concerns Infection Onset Date Last Indicated Resolved Time COVID Screen (preop/placement) 04/24/2020 04/24/2020 04/25/2020 1:35 AM EST COVID Screen (preop/placement) 08/19/2020 08/19/2020 08/19/2020 3:31 AM EDT documented as of this encounter Care Teams Combining Machine Operator Relationship Specialty Start Date End Date Surinder Rocha MD [address] [place], [place] [id number] PCP - General Family Medicine 10/05/19 documented as of this encounter
--- OUTSIDE RECORDS SUMMARY | 2025-03-02 10:16 | XMS_ITS | Encounter Summary ---
Author Organization [facility] Address [address] [place] [address] Care Team Providers Care Deposition Operator Name Role Phone Surinder Rocha MD Primary Care Provider [phone] Reason for Visit * Reason Comments Med Refill Encounter Details Date Type Department Care Team (Late st Contact Info) Description 06/15/2020 Refill [facility] [address] [place] [address] Surinder Rocha MD [address] [place], [place] [id number] Idiopathic peripheral neuropathy Social History Tobacco Use [...] [facility] [address] [place] [phone] Surinder Rocha MD [address] [place] [address] 08/25/2025 8:30 AM EDT Appointment [place] [phone] documented as of this encounter Visit Diagnoses Diagnosis Idiopathic peripheral neuropathy Unspecified hereditary and idiopathic peripheral neuropathy documented in this encounter Additional Health Concerns Infection Onset Date Last Indicated Resolved Time COVID Screen (preop/placement) 08/19/2020 08/19/2020 08/19/2020 3:31 AM EDT documented as of this encounter Care Teams Deposition Operator Relationship Specialty Start Date End Date Surinder Rocha MD [address] [place] [address] PCP - General Family Medicine 10/05/19 documented as of this encounter
[2025-03-02 10:23] LABS: Hematocrit 33.9 % (37.0-47.0); Hemoglobin 10.1 g/dL (12.2-16.2); Immature Granulocytes % 0.2 %; Mean Corpuscular HGB Conc 29.8 g/dL (31.8-35.4); Mean Corpuscular Hemoglobin 24.7 pg (27.0-31.2); Mean Corpuscular Volume 82.9 fl (81-99); Nucleated Red Blood Cells % 0 %; Platelet Count 200 K/mm3 (142-424); Red Blood Count 4.09 M/mm3 (4.20-5.40); Red Cell Distribution Width-SD 51.6 fL; White Blood Count 4.7 K/mm3 (4.8-10.8)
--- NOTE | 2025-03-02 10:23 | ED_ITS ---
<Statement entered by Wilber Farris MD - 03/02/25 20:17> I was consulted by the JUANCARLOS, and we discussed the complexity of the problems being addressed. I approve the treatment and management plan for this patient's care in the emergency department, thus performing a substantive portion of the medical decision making. Wilber Farris MD Discharge Plan Disposition Patient Disposition: Admitted Prescriptions Prescriptions: No Action bupropion HCl 300 mg tablet extended release 24 hr 300 mg PO DAILY famotidine 40 mg tablet 40 mg PO HS Patient Comments: TAKE 1 TABLET BY MOUTH EVERY DAY AT BEDTIME albuterol sulfate 90 mcg/actuation HFA aerosol inhaler 2 puff inhalation Q4HP PRN (Reason: Shortness Of Breath) Patient Comments: INHALE 1 PUFF BY MOUTH EVERY 4 HOURS NEEDED FOR WHEEZING Rexulti 1 mg tablet 1 mg PO DAILY Qty: 30 2RF buspirone 30 mg tablet 30 mg PO BID Qty: 30 2RF levothyroxine 125 mcg tablet 125 mcg PO DAILY Patient Comments: TAKE 1 TABLET BY MOUTH ONCE DAILY montelukast 10 mg tablet 10 mg PO HS Patient Comments: TAKE 1 TABLET BY MOUTH ONCE DAILY AT NIGHT Trulance 3 mg tablet 3 mg PO DAILY Patient Comments: TAKE 1 TABLET BY MOUTH ONCE DAILY diclofenac sodium [Arthritis Pain (diclofenac)] 1 % gel 4 g topical QID Qty: 50 0RF Rx Instructions: apply to single knee, ankle, foot; for foot includes sole/toes/top of foot valacyclovir 1 gram tablet 1,000 mg PO DAILY promethazine 25 mg tablet 12.5 - 25 mg PO Q6HP PRN (Reason: Nausea And Vomiting) Patient Comments: TAKE 1/2 TO 1 (ONE-HALF TO ONE) TABLET BY MOUTH EVERY 6 HOURS NEEDED gabapentin 100 mg capsule 100 mg PO DAILY Patient Comments: TAKE 1 CAPSULE BY MOUTH ONCE DAILY IN THE MORNING fluticasone propion-salmeterol [Advair Diskus] 100-50 mcg/dose blister with device 1 inh INHALATION BID Patient Comments: INHALE 1 DOSE BY MOUTH TWICE DAILY bupropion HCl 150 mg tablet extended release 24 hr 150 mg PO DAILY Patient Comments: TAKE 1 TABLET BY MOUTH ONCE DAILY TAKE WITH 300MG DOSE FOR A TOTAL OF 450MG DAILY cetirizine [All Day Allergy (cetirizine)] 10 mg tablet 10 mg PO DAILYP PRN (Reason: allergy symptoms) amitriptyline 50 mg tablet 50 mg PO HS ondansetron 8 mg tablet,disintegrating 8 mg PO TIDP PRN (Reason: nausea and vomiting) escitalopram oxalate 20 mg tablet 30 mg PO HS zolpidem 10 MG tablet 10 mg PO HSP PRN (Reason: Insomnia) fluticasone propionate 120 SPR/BOT bottle 1 - 2 spr intranasal DAILY Referrals Follow up/Referrals: Surinder Rocha [Primary Care Provider, Medical] - See instructions Print Language Print Language: Irish Discharge ED Provider: Wilber Farris HPI <Tere Alejo ([facility]), [employer] - Last Filed: 03/02/25 11:12> General Chief Complaint: Chest Pain Stated Complaint: Chest Tightness Time Seen by Provider: 03/02/25 10:16 Mode of Arrival: Wheelchair Source of Information: Patient Description of Symptoms (Recalled from ER Triage Doc. by RN): Reports chest pain x 1 week. States that it is midsternal radiates to her back and under her left breast. Sent from Cardiology office. History of Present Illness HPI narrative: 59-year-old female presents for chest pain and shortness of breath for 1 week. Patient states pains left-sided and radiates into the back and under her breast. Patient states she has had shortness of breath for a while now especially with exertion or activity and then about a week ago started having chest pain that comes and goes. Related Data Home Medications ?Medication ?Instructions ?Recorded ?Confirmed zolpidem 10 mg tablet 10 mg PO HSP PRN Insomnia 03/02/25 fluticasone propionate 50 1 - 2 spr intranasal DAILY 0 06/22/20 03/02/25 mcg/actuation nasal spray,suspension albuterol sulfate 90 mcg/actuation 2 puff inhalation Q 4HP PRN 11/18/24 03/02/25 aerosol inhaler Shortness Of Breath famotidine 40 mg tablet 40 mg PO HS 11/18/24 5 levothyroxine 125 mcg tablet 125 mcg PO DAILY 02/18/25 03/02/25 montelukast 10 mg tablet 10 mg PO HS 02/18/25 5 plecanatide 3 mg tablet (Trulance) 3 mg PO DAILY 02/1803/02/25 amitriptyline 50 mg tablet 50 mg PO HS 03/02/25 bupropion HCl 150 mg 24 hr tablet, 150 mg PO DAILY 03/02/25 extended release bupropion HCl 300 mg 24 hr tablet, 300 mg PO DAILY 03/02/25 extended release cetirizine 10 mg tablet (All Day 10 mg PO DAILYP PRN a llergy 03/02/25 03/02/25 Allergy (cetirizine)) symptoms escitalopram oxalate 20 mg tablet 30 mg PO HS 03/02/25 03/02/25 fluticasone 100 mcg-salmeterol 50 1 inh inhalation BID 03/02/25 03/02/25 mcg/dose blistr powdr for inhalation (Advair Diskus) gabapentin 100 mg capsule 100 mg PO DAILY 03/02/25 ondansetron 8 mg disintegrating 8 mg PO TIDP PRN nause a and 03/02/25 03/02/25 tablet vomiting promethazine 25 mg tablet 12.5 - 25 mg PO Q6HP PRN Cash sea 03/02/25 03/02/25 And Vomiting valacyclovir 1 gram tablet 1,000 mg PO DAILY 03/02/25 03/02/25 Previous Rx's ?Medication ?Instructions ?Recorded brexpiprazole 1 mg tablet (Rexulti) 1 mg PO DAILY #30 tabs 02/07/25 buspirone 30 mg tablet 30 mg PO BID #30 tabs diclofenac sodium 1 % topical gel 4 g topical QID #50 grams 02/18/25 (Arthritis Pain (diclofenac)) Allergies Allergy/AdvReac Type Severity Reaction Status Date / Time pregabalin (From Lyrica) Allergy Severe Swelling Verified 03/02/25 08:52 of Lip/Tongue/Throat duloxetine (From Cymbalta) Allergy Mild Irritable Verified 03/02/25 08:52 latex Allergy Mild Rash Verified 03/02/25 08:52 sulfamethoxazole (From AdvReac Mild Nausea Verified 03/02/25 08:52 Bactrim) trimethoprim (From Bactrim) AdvReac Mild Nausea Verified 03/02/25 08:52 PFSH <Tere Alejo ([facility]), [employer] - Last Filed: 03/02/25 11:12> [facility] Disclaimer: The information contained in this section may have been updated after the patient was seen, as this information can be updated by other users. Medical History , [employer]) Abnormal ECG Syncope SOB (shortness of breath) Deviated nasal tip Sarcoma Thyroid Nodule Cervical lymphadenopathy Hoarseness Hypothyroidism Dysphagia Surgical History , [employer]) History of hysterectomy History of hernia surgery History of bilateral knee replacement Family History , [employer]) No significant family history Social History , [employer]) Smoking Status: Never smoker second hand exposure: No alcohol intake: never substance use type: denies use current occupational status: other Travel in the last 8 weeks?: None household members: family housing: house current occupational exposures/hazards: No caffeine: Yes Have you lived/traveled outside [place] in past 30 days?: No Contact w/someone who lives/traveled outside US past 30 days?: No Exposure to someone with infectious disease in past 14 days?: No Do you have a fever (greater than 100.4 F or 38 C)?: No Have you tested positive for COVID-19?: No Exposed to someone with COVID-19 in past 14 days?: No Do you have a sore throat?: No Do you have a cough?: No Do you have any weakness?: No Do you have any diarrhea?: No Are you experiencing any unusual bleeding?: No Do you have any muscle aches/pain?: No Do you have any abdominal pain?: No Are you experiencing loss of taste or smell?: No Other Medical History Have you received the Flu Vaccine for this season: Yes Have you received the Pneumonia Vaccine: No <[facility] [employer]PER[employer]OR - Last Filed: 03/02/25 11:12> ROS Obtained: Yes Systems reviewed as appropriate & no additional complaints except as documented Cardiovascular Cardiovascular: Reports system reviewed and no additional complaints, except as documented, Reports as per HPI, Reports chest pain, Reports chest pain with activity and Reports dyspnea on exertion Respiratory Respiratory: Reports system reviewed and no additional complaints, except as documented, Reports as per HPI and Reports dyspnea on exertion Physical Exam <Omidmayra antwon ([facility]), [employer] - Last Filed: 03/02/25 11:12> General General appearance: alert and in no apparent distress Respiratory Respiratory exam: Present normal lung sounds bilaterally Cardiovascular Cardiovascular exam: Present regular rate and normal rhythm Neurological Exam Neurological exam: Present alert and oriented X3 Skin Skin exam: Present warm HEART Score <Tere Alejo ([facility]), [employer] - Last Filed: 03/02/25 11:12> HEART Score HEART Score assessment performed?: Yes History (anamnesis): Moderately suspicious ECG: Non-specific disturbance Age: 45-65 years Risk factors: 1-2 risk factors Troponin: </= normal limit HEART Score: 4 Procedures <Wilber Farris MD - Last Filed: 03/02/25 10:34> Limited Ultrasound Indication:: Indication:: Ultrasound-guided line placement Indication: - Difficult IV access, numerous unsuccessful pokes Identified structures: - Basilic and cephalic Location/access site: - Basilic Vessel patency: - Patent Direct visualization? - Yes Impression: Successful 18g catheter in left upper extremity cephalic vein Images were not saved to permanent archive The study was technically adequate Critical Care <Tere Alejo ([facility]), [employer] - Last Filed: 03/02/25 11:12> Critical Care Time Critical Care Time: Yes Attestation: On 03/02/25, the high probability of a clinically significant, sudden or life threatening deterioration of the following system(s) required my full and direct attention, intervention and personal management. The time I documented below is in addition to time spent performing reported procedures but includes the following listed in this critical care notation. Total Time Total Critical Care Time: 35 Medical Decision Making <Tere Alejo ([facility]), [employer] - Last Filed: 03/02/25 11:12> Medical Records Medical records reviewed: Yes I reviewed the patient's medical records. Reyes Inquiry Pt receiving controlled substance: No Vital Signs Vital Signs: 03/02/25 09:48 03/02/25 10:30 Temperature 97.9 F Temperature Source Oral Pulse Rate 74 Pulse Rate [Radial] 84 Respiratory Rate 21 13 Blood Pressure 126/69 Blood Pressure [Right Arm] 125/75 Blood Pressure Mean [Right Arm] 91 Blood Pressure Source [Right Arm] Automatic Cuff Blood Pressure Position [Right Arm] Sitting 02 Sat by Pulse Oximetry 96 96 Oxygen Delivery Method Room Air Room Air Lab Data Lab results reviewed: Yes I reviewed the patient's lab results. Labs: Lab Results 03/02/25 10:03: WBC 4.7 L D, RBC 4.09 L, Hgb 10.1 L, Hct 33.9 L, MCV 82.9, MCH 24.7 L, MCHC 29.8 L, RDW 17.0, Plt Count 200, MPV 10.4, Neut % (Auto) 65.0, Lymph % (Auto) 21.3, Cloud % (Auto) 7.4, Eos % (Auto) 5.7, Baso % (Auto) 0.4, Neut # (Auto) 3.1, Lymph # (Auto) 1.0, Cloud # (Auto) 0.4, Eos # (Auto) 0.3, Baso # (Auto) 0.0, Sodium 137, Potassium 3.4 L, Chloride 100, Carbon Dioxide 33 H, Anion Gap 7.4, BUN 8 D, Creatinine 0.80, Estimated Creat Clear 138, Estimated GFR 73, Est GFR ( Amer) 89, Glucose 113 H, Calcium 8.3 L, Total Bilirubin 0.5, AST 40 H, ALT 25, Alkaline Phosphatase 117, Troponin I < 0.01, Total Protein 7.3, Albumin 3.1 L, Globulin 4.2 H, Albumin/Globulin Ratio 0.7 L 03/02/25 10:03 03/02/25 10:03 Response Orders (Tests/Meds): ORDERS Category Date Time Status CBC w/Auto Diff [Complete Blood Count Auto Diff] Stat Lab 03/02/25 10:03 Completed CMP [Comprehensive Metabolic Panel] Stat Lab 03/02/25 10:03 Completed Free T4 (Free Thyroxine) Stat Lab 03/02/25 10:05 Received HIV Combo Stat Lab 03/02/25 10:03 Received Hepatitis C Ab Qual. W/ RFX Stat Lab 03/02/25 10:03 Received TSH [Thyroid Stimulating Hormone] Stat Lab 03/02/25 10:05 Received Trop I [Troponin I] Stat Lab 03/02/25 10:03 Completed Troponin I Q3H Lab 03/02/25 13:30 Ordered Troponin I Q3H Lab 03/02/25 16:30 Ordered MDM Narrative Medical Decision Narrative: In summary patient is a 59-year-old female who presents to the emergency department for evaluation of chest pain for a week and shortness of breath with activities. Patient is hemodynamically stable upon arrival, afebrile. Unremarkable physical exam. Differential diagnosis includes coronary artery disease, angina, PE, DC. Initial workup will be conducted with labs,. Initial inventions include morphine 2 mg IV. Initial workup reviewed by ca H&H reynaldo, patient states she has had trouble with this on and off for a while, CT from last night showed no evidence of PE, EKG normal, upon repeat evaluation spoke with Dr. Slaughter's office. Given this patient will be admitted and cath later today. Hospitalist accepted patient. <Wilber Farris MD - Last Filed: 03/02/25 10:34> Vital Signs Vital Signs: 03/02/25 09:48 03/02/25 10:30 Temperature 97.9 F Temperature Source Oral Pulse Rate 74 Pulse Rate [Radial] 84 Respiratory Rate 21 13 Blood Pressure 126/69 Blood Pressure [Right Arm] 125/75 Blood Pressure Mean [Right Arm] 91 Blood Pressure Source [Right Arm] Automatic Cuff Blood Pressure Position [Right Arm] Sitting 02 Sat by Pulse Oximetry 96 96 Oxygen Delivery Method Room Air Room Air Lab Data Labs: Lab Results 03/02/25 10:03: WBC 4.7 L D, RBC 4.09 L, Hgb 10.1 L, Hct 33.9 L, MCV 82.9, MCH 24.7 L, MCHC 29.8 L, RDW 17.0, Plt Count 200, MPV 10.4, Neut % (Auto) 65.0, Lymph % (Auto) 21.3, Cloud % (Auto) 7.4, Eos % (Auto) 5.7, Baso % (Auto) 0.4, Neut # (Auto) 3.1, Lymph # (Auto) 1.0, Cloud # (Auto) 0.4, Eos # (Auto) 0.3, Baso # (Auto) 0.0, Sodium 137, Potassium 3.4 L, Chloride 100, Carbon Dioxide 33 H, Anion Gap 7.4, BUN 8 D, Creatinine 0.80, Estimated Creat Clear 138, Estimated GFR 73, Est GFR ( Amer) 89, Glucose 113 H, Calcium 8.3 L, Total Bilirubin 0.5, AST 40 H, ALT 25, Alkaline Phosphatase 117, Troponin I < 0.01, Total Protein 7.3, Albumin 3.1 L, Globulin 4.2 H, Albumin/Globulin Ratio 0.7 L Response Orders (Tests/Meds): ORDERS Category Date Time Status CBC w/Auto Diff [Complete Blood Count Auto Diff] Stat Lab 03/02/25 10:03 Completed CMP [Comprehensive Metabolic Panel] Stat Lab 03/02/25 10:03 Completed Free T4 (Free Thyroxine) Stat Lab 03/02/25 10:05 Received HIV Combo Stat Lab 03/02/25 10:03 Received Hepatitis C Ab Qual. W/ RFX Stat Lab 03/02/25 10:03 Received TSH [Thyroid Stimulating Hormone] Stat Lab 03/02/25 10:05 Received Trop I [Troponin I] Stat Lab 03/02/25 10:03 Completed Troponin I Q3H Lab 03/02/25 13:30 Ordered Troponin I Q3H Lab 03/02/25 16:30 Ordered ECG Data Tracing #1: Attestation: I reviewed this ECG and interpreted as documented below: ECG Narrative: NSR. No ST elevation or depression. QTc normal at 424
[2025-03-02 10:29] LABS: Alanine Aminotransferase 25 U/L (12-78); Albumin Level 3.1 g/dl (3.5-5.0); Albumin/Globulin Ratio 0.7 (1.1-1.8); Alkaline Phosphatase 117 U/L (38-126); Anion Gap 7.4 mEq/L (5-15); Aspartate Amino Transferase 40 U/L (14-36); Bilirubin,Total 0.5 mg/dl (0.2-1.3); Blood Urea Nitrogen 8 mg/dl (7-17); Calcium 8.3 mg/dl (8.4-10.2); Carbon Dioxide 33 mmol/L (22.0-30.0); Chloride 100 mmol/L (98-107); Creatinine Clearance Estimated 138 mL/min (50-200); Creatinine,Serum 0.80 mg/dl (0.52-1.04); Estimated Glomerular Filt Rate 73 ml/min (>60); GFR (African American) 89 ML/MIN (>60); Globulin 4.2 g/dL (1.3-3.2); Glucose 113 mg/dl (74-100); Potassium 3.4 mmoL/L (3.5-5.1); Sodium 137 mmol/L (136-145); Total Protein,Serum 7.3 g/dl (6.3-8.2)
[2025-03-02 10:42] LABS: Troponin I < 0.01 ng/ml (0.00-0.034)
--- NOTE | 2025-03-02 11:04 | CA_ITS ---
APPROVED REPORT EXAM: Comprehensive 2D, Doppler, and color-flow Echocardiogram Door Maker: Alissa Bauer RDCS Ht: 5 ft 7 in Wt: 271lbs BSA: 2.30 BP: 125/75 mmHg Indications: ANGINA SOA M-Mode Dimensions RVDd 2.54 cm (0.9-2.6) LA Diam 4.00 cm (1.9-4.0) LVDd 5.84 cm (3.5-5.7) LVDs 4.33 cm (3.5-5.7) IVSd 1.06 cm (0.6-1.1) PWd 0.89 cm (0.6-1.1) EF (Teich) 50.10% FS 25.90% EDV (Teich) 169.20 mL ESV (Teich) 84.40 mL LV Diastology E Decel Time 203 (160-240 msec) E/A Ratio 1.1 Mitral Valve MV E Max Vic. 81.0 (40-130 cm/s) MV A Velocity 77.0 (40-130 cm/s) E/A Ratio 1.05 MV PHT 60.0 ms Left Ventricle The left ventricle is normal size. Left ventricular systolic function is normal. The left ventricular ejection fraction is within the normal range. There is increased left ventricular wall thickness. There is normal LV segmental wall motion. The left ventricular diastolic function is normal. LVEF is 55%. Right Ventricle The right ventricle is normal size. The right ventricular systolic function is normal. Atria The left atrium size is normal. The right atrium size is normal. There is no color Doppler evidence of interatrial shunt. Aortic Valve The aortic valve opens well. There is no hemodynamically significant aortic valvular stenosis. No aortic regurgitation is present. Mitral Valve The mitral valve is normal in structure. No evidence of mitral valve stenosis. Trace mitral regurgitation is present. Tricuspid Valve The tricuspid valve leaflets are thin and pliable. Trace tricuspid regurgitation. There is insufficient TR jet to estimate RVSP. Pulmonic Valve The pulmonary valve is grossly normal in structure. Trace pulmonic valve regurgitation is present. Great Vessels The aortic root is normal in size. IVC is normal in size and collapses >50% with inspiration. Pericardium There is no pericardial effusion. Other Information Study Quality: Fair Conclusion Normal biventricular systolic function. No significant valvular stenosis or regurgitation. Electronically signed by : Nora Trinidad MD 03/02/2025 12:57:43
--- NOTE | 2025-03-02 11:08 | IR_ITS ---
APPROVED REPORT Patient Location: Inpatient PROCEDURES Left heart catheterization Left ventriculogram Selective coronary angiogram INDICATION Unstable angina Informed consent was obtained prior to the procedure. COMPLICATIONS None Estimated Blood Loss: Less than 10 mls TECHNIQUE One percent lidocaine used to anesthetize the right anterior aspect of the wrist. The right radial artery was accessed via the Seldinger technique. A 6 [place] sheath was placed in the right radial artery. 2.5 mg of Verapamil, 800 mcg of nitroglycerin, 1mg Lidocaine and 5000 U Heparin were given through the arterial sheath. The JL3 catheter was also used to perform left heart catheterization, left ventriculogram and selective coronary angiogram. At the end of the procedure the sheath was removed good hemostasis was achieved using Traclet band, patient was transferred to the postop holding area in stable condition. ANGIOGRAPHIC RESULTS The left main artery Normal The left anterior descending artery He has proximal 10 to 20% stenosis with remaining vessel widely patent. GLORIA II flow is present The circumflex artery Nondominant normal The right coronary artery Large dominant proximal 20% stenosis The FARRELL ventriculogram reveals Hyperdynamic 75 to 80% The left ventricular end-diastolic pressure 25 mmHg IMPRESSION Mild nonflow-limiting coronary disease Slow flow down the LAD consistent with either endothelial dysfunction or diastolic dysfunction with elevated LVEDP Hyperdynamic ventricle Elevated LVEDP PLAN 1. Risk factor modification 2. Treatment of endothelial dysfunction 3. Low-dose diuretics and negative inotropes will likely benefit hyperdynamic ventricle 4. Tighter control of hypertension Electronically signed by : Shorty Slaughter MD 03/02/2025 15:15:36
--- NOTE | 2025-03-02 11:19 | EXP.CARD.CON ---
History of Present Illness History of Present Illness Consult date: 03/02/25 Consult reason: chest pain Chief complaint: chest pain History of present illness: 59-year-old white female with history of nonobstructive CAD per left heart cath many years ago per her recollection. She has a BMI of 40, history of esophageal spasm, and fibromylagia, but denies high blood pressure high cholesterol diabetes or tobacco. Presented to the emergency room yesterday with 3 weeks of worsening episodic substernal and left-sided chest pressure with radiation to her back and left arm associate with shortness of breath. Symptoms have been worsening for several weeks and had become more severe. ER workup was benign including serial troponins and CTA. She was referred to our office this morning for evaluation. On arrival patient was in no distress holding her chest complaining of severe constant chest pain. She was referred back to the emergency room with plans for left heart cath today. I am seeing the patient in the emergency room and she states her symptoms are ongoing but she is in no distress. Vitals are stable. EKG shows SR with non specific ST changes. 1st Trop normal. Heart cath was discussed in detail and she is agreebale to proceed. [facility] Disclaimer: The information contained in this section may have been updated after the patient was seen, as this information can be updated by other users. Medical History Abnormal ECG Syncope SOB (shortness of breath) Deviated nasal tip Sar[place] Thyroid Nodule Cervical lymphadenopathy Hoarseness Hypothyroidism Dysphagia Surgical History History of hysterectomy History of hernia surgery History of bilateral knee replacement Family History Other No significant family history Social History Smoking Status: Never smoker second hand exposure: No alcohol intake: never substance use type: denies use current occupational status: other Travel in the last 8 weeks?: None household members: family housing: house current occupational exposures/hazards: No caffeine: Yes Have you lived/traveled outside [place] in past 30 days?: No Contact w/someone who lives/traveled outside [place] past 30 days?: No Exposure to someone with infectious disease in past 14 days?: No Do you have a fever (greater than 100.4 F or 38 C)?: No Have you tested positive for COVID-19?: No Exposed to someone with COVID-19 in past 14 days?: No Do you have a sore throat?: No Do you have a cough?: No Do you have any weakness?: No Do you have any diarrhea?: No Are you experiencing any unusual bleeding?: No Do you have any muscle aches/pain?: No Do you have any abdominal pain?: No Are you experiencing loss of taste or smell?: No Review of Systems Constitutional Constitutional: Reports fatigue and Reports weakness Eyes Eyes: Denies loss of vision ENT Ears, Nose, Mouth, and Throat: Denies hearing loss and Denies vertigo *Cardiovascular Cardiovascular: Reports chest pain, Reports dyspnea and Denies syncope *Respiratory Respiratory: Denies cough and Reports dyspnea *Gastrointestinal Gastrointestinal: Denies change in stool character, Denies nausea and Denies vomiting *Musculoskeletal Musculoskeletal: Denies muscle weakness Integumentary/Breasts Skin/Breast: Denies changing lesions *Neurologic Neurologic: Denies loss of vision, Denies syncope, Denies vertigo and Reports weakness Endocrine Endocrine: Reports fatigue Exam Data for Last 24 hours Vital signs and Labs for Last 24 Hours: Temp Pulse Resp BP Pulse Ox O2 Del Method 97.9 F 74 13 126/69 96 Room Air 03/02/25 09:48 03/02/25 10:30 03/02/25 10:30 03/02/25 10:30 03/02/25 10:30 03/02/25 10:30 Laboratory Results - last 24 hr 03/02/25 10:03: WBC 4.7 L D, RBC 4.09 L, Hgb 10.1 L, Hct 33.9 L, MCV 82.9, MCH 24.7 L, MCHC 29.8 L, RDW 17.0, Plt Count 200, MPV 10.4, Neut % (Auto) 65.0, Lymph % (Auto) 21.3, [place] % (Auto) 7.4, Eos % (Auto) 5.7, Baso % (Auto) 0.4, Neut # (Auto) 3.1, Lymph # (Auto) 1.0, [place] # (Auto) 0.4, Eos # (Auto) 0.3, Baso # (Auto) 0.0, Sodium 137, Potassium 3.4 L, Chloride 100, Carbon Dioxide 33 H, Anion Gap 7.4, BUN 8 D, Creatinine 0.80, Estimated Creat Clear 138, Estimated GFR 73, Est GFR ( Amer) 89, Glucose 113 H, Calcium 8.3 L, Total Bilirubin 0.5, AST 40 H, ALT 25, Alkaline Phosphatase 117, Troponin I < 0.01, Total Protein 7.3, Albumin 3.1 L, Globulin 4.2 H, Albumin/Globulin Ratio 0.7 L I & O for Last 24 hours: Intake & Output 02/27/25 02/28/25 03/01/25 03/02/25 23:59 23:59 23:59 23:59 Weight 257 lb Constitutional Constitutional: no acute distress and cooperative *Routine HEENT Exam Eye: Present PERRL *Routine Respiratory Exam Respiratory: Present CTA bilaterally; Absent accessory muscle use, wheezes or crackles *Routine Cardiovascular Exam Cardiovascular: Present RRR, Normal S1 and Normal S2; Absent murmur, gallop or rubs *Routine Abdominal Exam Abdominal: Present soft; Absent tenderness *Routine Extremities Exam Extremities: Present pulses intact; Absent cyanosis or edema *Routine Skin Exam Skin: Present intact; Absent erythema or wounds *Routine Neurological Exam Neurological: Present alert and oriented X3 Routine Psychiatric Exam Psychiatric: Present cooperative Meds Home Medications and Allergies Home Medications ?Medication ?Instructions ?Recorded ?Confirmed ?Type zolpidem 10 mg tablet 10 mg PO HSP PRN Insomnia 12/04/17 03/02/25 History fluticasone propionate 50 1 - 2 spr intranasal DAILY 06/22/20 03/02/25 History mcg/actuation nasal spray,suspension albuterol sulfate 90 mcg/actuation 2 puff inhalation Q4HP PRN 11/18/24 03/02/25 History aerosol inhaler Shortness Of Breath famotidine 40 mg tablet 40 mg PO HS 11/18/24 03/02/25 History brexpiprazole 1 mg tablet (Rexulti) 1 mg PO DAILY #30 tabs 02/07/25 03/02/25 Rx buspirone 30 mg tablet 30 mg PO BID #30 tabs 02/07/25 03/02/25 Rx diclofenac sodium 1 % topical gel 4 g topical QID #50 grams 02/18/25 03/02/25 Rx (Arthritis Pain (diclofenac)) levothyroxine 125 mcg tablet 125 mcg PO DAILY 02/18/25 03/02/25 History montelukast 10 mg tablet 10 mg PO HS 02/18/25 03/02/25 History plecanatide 3 mg tablet (Trulance) 3 mg PO DAILY 02/18/25 03/02/25 History amitriptyline 50 mg tablet 50 mg PO HS 03/02/25 03/02/25 History bupropion HCl 150 mg 24 hr tablet, 150 mg PO DAILY 03/02/25 03/02/25 History extended release bupropion HCl 300 mg 24 hr tablet, 300 mg PO DAILY 03/02/25 03/02/25 History extended release cetirizine 10 mg tablet (All Day 10 mg PO DAILYP PRN allergy 03/02/25 03/02/25 History Allergy (cetirizine)) symptoms escitalopram oxalate 20 mg tablet 30 mg PO HS 03/02/25 03/02/25 History fluticasone 100 mcg-salmeterol 50 1 inh inhalation BID 03/02/25 03/02/25 History mcg/dose blistr powdr for inhalation (Advair Diskus) gabapentin 100 mg capsule 100 mg PO DAILY 03/02/25 03/02/25 History ondansetron 8 mg disintegrating 8 mg PO TIDP PRN nausea and 03/02/25 03/02/25 History tablet vomiting promethazine 25 mg tablet 12.5 - 25 mg PO Q6HP PRN Nausea 03/02/25 03/02/25 History And Vomiting valacyclovir 1 gram tablet 1,000 mg PO DAILY 03/02/25 03/02/25 History New Prescriptions to Start Prescriptions: Allergies Allergy/AdvReac Type Severity Reaction Status Date / Time pregabalin (From Lyrica) Allergy Severe Swelling Verified 03/02/25 08:52 of Lip/Tongue/Throat duloxetine (From Cymbalta) Allergy Mild Irritable Verified 03/02/25 08:52 latex Allergy Mild Rash Verified 03/02/25 08:52 sulfamethoxazole (From AdvReac Mild Nausea Verified 03/02/25 08:52 Bactrim) trimethoprim (From Bactrim) AdvReac Mild Nausea Verified 03/02/25 08:52 Assessment and Plan *Assessment and plan (1) Unstable angina: Status: Acute Category: Medical Code(s): I20.0 - Unstable angina Plan Unstable Angina - 3 weeks worsening now constant substernal chest tightness radiating to back and left arm, associated with SOA and weakness. Symptoms are worse with activity but now severe and occuring at rest. - EKG - NSST - Trop - Nml - Plan: ASA, Lovenox, Ntg, LHC.
[2025-03-02 11:21] LABS: Free T4 (Free Thyroxine) 1.81 ng/dl (0.78-2.19)
--- NOTE | 2025-03-02 11:27 | PC.NURSE ---
Report given to SIDRA Mccoy on Med Surg.
[2025-03-02 11:35] LABS: Thyroid Stimulating Hormone 0.49 uIU/mL (0.465-4.68)
[2025-03-02 11:49] LABS: Hepatitis C Ab Qual. W/ RFX NEGATIVE (Negative)
[2025-03-02] MEDS: MORPHINE 2MG/ML SYRINGE 2 MG IV (12:39)
[2025-03-02] MEDS: NITROGLYCERIN 800MCG/8ML SYR (CATH LAB) 800 MCG IA (14:05)
[2025-03-02] MEDS: 0.9 % SODIUM CHLORIDE 500 ML 25 ML IV (14:05)
[2025-03-02] MEDS: LIDOCAINE 1% 10ML MDV 10 ML IJ (14:05)
[2025-03-02] MEDS: HEPARIN 1,000 UNITS/ML 10ML VIAL (CATH LAB) 5000 UNIT IV (14:05)
[2025-03-02] MEDS: HEPARIN 1,000 UNITS/500ML NS (CATH LAB) 3000 UNIT IV (14:06)
[2025-03-02] MEDS: VERAPAMIL 2.5MG/ML 2ML VIAL 2.5 MG IV (14:06)
[2025-03-02] MEDS: FENTANYL 100MCG/2ML VIAL 50 MCG IV (15:05)
[2025-03-02] MEDS: MIDAZOLAM HCL 1MG/ML 5ML VIAL 1 MG IV (15:05)
[2025-03-02] MEDS: IOPAMIDOL-370 (76%);100ML BOTTLE 50 ML IV (15:48)
--- NOTE | 2025-03-02 17:16 | P.HP_ITS ---
<Statement entered by Ed Mi MD - 03/06/25 15:38> Agree with plan of care as outlined by the [facility]. History of Present Illness *Admission Date: 03/02/25 *Reason for visit:: chest pain *History of present illness: Ms. Chase is a 59-year-old female who presented to the emergency department today with chest pain intermittently x 1 week. She has a primary medical history of major depressive disorder, hypothyroid, IBS, insomnia, GERD, obesity, anxiety, and lung disease. Patient stated that the pain was left-sided and radiated around to her back. Patient follows with cardiology and was seen in the office this morning. Workup in the ED was overall benign. Patient had mild anemia with a hemoglobin of 10.1, WBC stable at 4.7, slightly hypokalemic with potassium of 3.4, D-dimer 0.77. Troponin negative. Patient had echo which revealed LVEF is 55%, normal biventricular systolic function. No significant valvular stenosis or regurgitation. Patient also had chest CTA which showed no evidence of PE or consolidation or masses. Cardiology was consulted from the emergency department who recommended patient be admitted and taken for LHC. [facility] Disclaimer: The information contained in this section may have been updated after the patient was seen, as this information can be updated by other users. Medical History Abnormal ECG Syncope SOB (shortness of breath) Deviated nasal tip [place] Thyroid Nodule Cervical lymphadenopathy Hoarseness Hypothyroidism Dysphagia Surgical History History of hysterectomy History of hernia surgery History of bilateral knee replacement Family History Other No significant family history Social History Smoking Status: Never smoker second hand exposure: No alcohol intake: never substance use type: denies use current occupational status: other Travel in the last 8 weeks?: None household members: family housing: house current occupational exposures/hazards: No caffeine: Yes Other Medical History Have you received the Flu Vaccine for this season: Yes Have you received the Pneumonia Vaccine: Yes Review of Systems Constitutional Constitutional: Reports fatigue and Reports weakness Eyes Eyes: Denies loss of vision ENT Ears, Nose, Mouth, and Throat: Denies vertigo *Cardiovascular Cardiovascular: Reports dyspnea and Denies syncope *Respiratory Respiratory: Denies cough and Reports dyspnea *Gastrointestinal Gastrointestinal: Denies change in stool character, Denies nausea and Denies vomiting *Musculoskeletal Musculoskeletal: Denies muscle weakness Integumentary/Breasts Skin/Breast: Denies changing lesions *Neurologic Neurologic: Denies loss of vision, Denies syncope, Denies vertigo and Reports weakness Endocrine Endocrine: Reports fatigue Meds Home Medications and Allergies Home Medications ?Medication ?Instructions ?Recorded ?Confirmed ?Type zolpidem 10 mg tablet 10 mg PO HSP PRN Insomnia 03/02/25 History fluticasone propionate 50 1 - 2 spr intranasal DAILY 0 06/22/20 03/02/25 History mcg/actuation nasal spray,suspension albuterol sulfate 90 mcg/actuation 2 puff inhalation Q 4HP PRN 11/18/24 03/02/25 History aerosol inhaler Shortness Of Breath famotidine 40 mg tablet 40 mg PO HS 11/18/24 5 History brexpiprazole 1 mg tablet (Rexulti) 1 mg PO DAILY #30 tabs 02/07/25 03/02/25 Rx diclofenac sodium 1 % topical gel 4 g topical QID #50 grams 02/18/25 03/02/25 Rx (Arthritis Pain (diclofenac)) levothyroxine 125 mcg tablet 125 mcg PO DAILY 02/18/25 03/02/25 History montelukast 10 mg tablet 10 mg PO HS 02/18/25 5 History plecanatide 3 mg tablet (Trulance) 3 mg PO DAILY 02/1803/02/25 History amitriptyline 50 mg tablet 50 mg PO HS 03/02/25 History bupropion HCl 150 mg 24 hr tablet, 150 mg PO DAILY 03/02/25 History extended release bupropion HCl 300 mg 24 hr tablet, 300 mg PO DAILY 03/02/25 History extended release buspirone 30 mg tablet 15 mg PO BID 03/02/25 History cetirizine 10 mg tablet (All Day 10 mg PO DAILYP PRN a llergy 03/02/25 03/02/25 History Allergy (cetirizine)) symptoms cyclobenzaprine 10 mg tablet 10 mg PO HS 03/02/25 10/2 01/27 History escitalopram oxalate 20 mg tablet 20 mg PO HS 03/02/25 03/02/25 History fluticasone 100 mcg-salmeterol 50 1 inh inhalation BID 03/02/25 03/02/25 History mcg/dose blistr powdr for inhalation (Advair Diskus) gabapentin 100 mg capsule 300 mg PO DAILY 03/02/25 History levofloxacin 500 mg tablet 125 mg PO DAILY 03/02/25 History omeprazole 40 mg capsule,delayed 40 mg PO DAILY 03/02/25 History release ondansetron 8 mg disintegrating 8 mg PO TIDP PRN nause a and 03/02/25 03/02/25 History tablet vomiting promethazine 25 mg tablet 12.5 - 25 mg PO Q6HP PRN [place] 03/02/25 03/02/25 History And Vomiting valacyclovir 1 gram tablet 1,000 mg PO DAILY 03/02/25 03/02/25 History New Prescriptions to Start Prescriptions: Allergies Allergy/AdvReac Type Severity Reaction Status Date / Time pregabalin (From Lyrica) Allergy Severe Swelling Verified 03/02/25 08:52 of Lip/Tongue/Throat duloxetine (From Cymbalta) Allergy Mild Irritable Verified 03/02/25 08:52 latex Allergy Mild Rash Verified 03/02/25 08:52 sulfamethoxazole (From AdvReac Mild Nausea Verified 03/02/25 08:52 Bactrim) trimethoprim (From Bactrim) AdvReac Mild Nausea Verified 03/02/25 08:52 Exam Data for Last 24 hours Vital signs and Labs for Last 24 Hours: Temp Pulse Resp BP Pulse Ox O2 Del Method 98.4 F 73 20 133/81 96 Room Air 03/02/25 15:39 03/02/25 15:39 03/02/25 15:39 03/02/25 15:39 03/02/25 15:39 03/02/25 15:39 Laboratory Results - last 24 hr 03/02/25 10:03: WBC 4.7 L D, RBC 4.09 L, Hgb 10.1 L, Hct 33.9 L, MCV 82.9, MCH 24.7 L, MCHC 29.8 L, RDW 17.0, Plt Count 200, MPV 10.4, Neut % (Auto) 65.0, Lymph % (Auto) 21.3, [place] % (Auto) 7.4, Eos % (Auto) 5.7, Baso % (Auto) 0.4, Neut # (Auto) 3.1, Lymph # (Auto) 1.0, [place] # (Auto) 0.4, Eos # (Auto) 0.3, Baso # (Auto) 0.0, Sodium 137, Potassium 3.4 L, Chloride 100, Carbon Dioxide 33 H, Anion Gap 7.4, BUN 8 D, Creatinine 0.80, Estimated Creat Clear 138, Estimated GFR 73, Est GFR ( Amer) 89, Glucose 113 H, Calcium 8.3 L, Total Bilirubin 0.5, AST 40 H, ALT 25, Alkaline Phosphatase 117, Troponin I < 0.01, Total Protein 7.3, Albumin 3.1 L, Globulin 4.2 H, Albumin/Globulin Ratio 0.7 L, HCV Ab NAZIA w/Rflx PCR Qn Negative, HIV Ag/Ab Combo Qual Negative 03/02/25 10:05: TSH 0.49, Free T4 1.81 I & O for Last 24 hours: Intake & Output 02/27/25 02/28/25 03/01/25 03/02/25 23:59 23:59 23:59 23:59 Intake Total 500 / 500 Output Total 0 / 0 Balance 500 / 500 Weight 116.573 kg Constitutional Constitutional: no acute distress, morbidly obese, chronically ill appearing and cooperative *Routine HEENT Exam Head: Present normocephalic Eye: Present EOMI and PERRL ENT: Present mucous membranes moist *Routine Neck Exam Neck: Present supple *Routine Respiratory Exam Respiratory: Present CTA bilaterally *Routine Cardiovascular Exam Cardiovascular: Present RRR *Routine Abdominal Exam Abdominal: Present soft and normoactive bowel sounds; Absent tenderness *Routine Rectal Exam Rectal:: deferred *Routine Genitalia Exam Genitalia:: deferred *Routine Extremities Exam Extremities: Absent cyanosis, clubbing or edema *Routine Skin Exam Skin: Present warm; Absent rash *Routine Neurological Exam Neurological: Present alert and oriented X3 Assessment and Plan *Assessment and plan (1) Unstable angina: Status: Acute Category: Medical Code(s): I20.0 - Unstable angina (2) Syncope: Status: Acute Category: Medical Code(s): R55 - Syncope and collapse (3) GERD (gastroesophageal reflux disease): Status: Acute Category: Medical Code(s): K21.9 - Gastro-esophageal reflux disease without esophagitis (4) Depression: Status: Acute Qualifiers: Depression Type: unspecified Qualified Code(s): F32.A - Depression, unspecified Category: Medical Code(s): F32.A - Depression, unspecified (5) Anxiety: Status: Acute Category: Medical Code(s): F41.9 - Anxiety disorder, unspecified Plan Ms. Chase is a 59-year-old female who presented to the emergency department today with chest pain intermittently x 1 week. She has a primary medical history of major depressive disorder, hypothyroid, IBS, insomnia, GERD, obesity, anxiety, and lung disease. Patient stated that the pain was left-sided and radiated around to her back. Patient follows with cardiology and was seen in the office this morning. Workup in the ED was overall benign. Patient had mild anemia with a hemoglobin of 10.1, WBC stable at 4.7, slightly hypokalemic with potassium of 3.4, D-dimer 0.77. Troponin negative. Patient had echo which revealed LVEF is 55%, normal biventricular systolic function. No significant valvular stenosis or regurgitation. Patient also had chest CTA which showed no evidence of PE or consolidation or masses. Cardiology was consulted from the emergency department who recommended patient be admitted and taken for LHC. Patient has a heart score of 2. I was consulted for admission, I agreed to admit the patient. Plan of care as follows: #Unstable angina #History of syncopal episode ? Patient states that she thinks she had a syncopal episode approximately 3 weeks ago. She states she fell in the shower and is unsure what caused the fall. Patient does state that she injured her knee but did not intervention. She states since that time she has had worsening shortness of breath and lightheadedness. She does state that she also has had tingling/numbness down her left arm and increased fatigue. ? Patient was taken for left heart cath earlier today. Per report patient had mild nonflow?limiting coronary artery disease, slow flow down the LAD consistent with either endothelial dysfunction or diastolic dysfunction with elevated LVEDP. Recommendations for risk factor modification, treatment of endothelial dysfunction, low-dose diuretics, tighter control of hypertension. Patient doing well after heart cath, denies chest pain currently. Will observe overnight and consult cardiology for medical management recommendations. ? CBC, CMP, magnesium, lipid panel ordered for the a.m. #Morbidly obese, BMI 40 ? Obesity complicates all aspects of care. #Major depressive disorder ? Patient should continue depression medications amitriptyline 50 mg at bedtime, Rexulti 1 mg daily, Wellbutrin Forner 50 mg daily, BuSpar 30 mg twice daily, escitalopram 20 mg at bedtime. #GERD ? Patient should continue famotidine 40 mg at bedtime and omeprazole 40 mg daily. #Hypothyroid ? Continue levothyroxine 125 mcg daily, TSH within normal limits. Full code Cardiac diet Ambulate as tolerated VTE?Lovenox
[2025-03-02 17:47] LABS: Troponin I < 0.01 ng/ml (0.00-0.034)
--- NOTE | 2025-03-02 18:07 | PC.NURSE ---
pt resting in bed with family at her side, Radial heart cath with no stents today. A/Ox4, RA, no skin issues, call light in reach
[2025-03-02] MEDS: AMITRIPTYLINE 50MG TABLET 50 MG PO (20:12)
[2025-03-02] MEDS: PANTOPRAZOLE 40MG TABLET 40 MG PO (20:12)
[2025-03-02] MEDS: BUSPIRONE HCL 10 MG TABLET 15 MG PO (20:12)
[2025-03-02] MEDS: MONTELUKAST SODIUM 10MG TAB 10 MG PO (20:12)
[2025-03-02] MEDS: FAMOTIDINE 20MG TABLET 40 MG PO (20:12)
[2025-03-02] MEDS: ZOLPIDEM TARTRATE 10 MG TABLET PO (20:15)
[2025-03-02] MEDS: ACETAMINOPHEN 325MG TAB 650 MG PO (23:14)
[2025-03-03] VITALS (7 sets, daily range): BP systolic 100–138; BP diastolic 55–73; PULSE 71–90; RESP 16–18; TEMP 36.6–36.9; O2SAT 94–95; BMI 42.5
[2025-03-03 06:19] LABS: Hematocrit 32.0 % (37.0-47.0); Hemoglobin 9.7 g/dL (12.2-16.2); Immature Granulocytes % 0.4 %; Mean Corpuscular HGB Conc 30.3 g/dL (31.8-35.4); Mean Corpuscular Hemoglobin 24.9 pg (27.0-31.2); Mean Corpuscular Volume 82.3 fl (81-99); Nucleated Red Blood Cells % 0 %; Platelet Count 194 K/mm3 (142-424); Red Blood Count 3.89 M/mm3 (4.20-5.40); Red Cell Distribution Width-SD 50.0 fL; White Blood Count 5.2 K/mm3 (4.8-10.8)
[2025-03-03 06:30] LABS: Chloride 103 mmol/L (98-107); Potassium 3.6 mmoL/L (3.5-5.1); Sodium 135 mmol/L (136-145)
[2025-03-03 06:33] LABS: Anion Gap 4.6 mEq/L (5-15); Blood Urea Nitrogen 5 mg/dl (7-17); Carbon Dioxide 31 mmol/L (22.0-30.0); Cholesterol 126 mg/dl (140-200); Creatinine Clearance Estimated 70 mL/min (50-200); Creatinine,Serum 0.80 mg/dl (0.52-1.04); Estimated Glomerular Filt Rate 73 ml/min (>60); GFR (African American) 89 ML/MIN (>60); Triglycerides 98 mg/dl (30-150)
[2025-03-03 06:34] LABS: Calcium 8.0 mg/dl (8.4-10.2); Glucose 105 mg/dl (74-100); HDL Cholesterol 24 mg/dl (40-60); Magnesium 2.1 mg/dl (1.6-2.3)
--- NOTE | 2025-03-03 08:50 | P.DS_ITS ---
<Statement entered by Ed Mi MD - 03/06/25 15:39> Agree with plan of care as outlined by the CEN[employer]AL OFFICE WORKER. General Admission date:: 03/02/25 Discharge date: 03/03/25 HPI HPI HPI: Ms. Chase is a 59-year-old female who presented to the emergency department today with chest pain intermittently x 1 week. She has a primary medical history of major depressive disorder, hypothyroid, IBS, insomnia, GERD, obesity, anxiety, and lung disease. Patient stated that the pain was left-sided and radiated around to her back. Patient follows with cardiology and was seen in the office this morning. Workup in the ED was overall benign. Patient had mild anemia with a hemoglobin of 10.1, WBC stable at 4.7, slightly hypokalemic with potassium of 3.4, D-dimer 0.77. Troponin negative. Patient had echo which revealed LVEF is 55%, normal biventricular systolic function. No significant valvular stenosis or regurgitation. Patient also had chest CTA which showed no evidence of PE or consolidation or masses. Cardiology was consulted from the emergency department who recommended patient be admitted and taken for LHC. Hospital Course Hospital Course Hospital Course: Ms. Chase is a 59-year-old female who presented to the emergency department yesterday with chest pain intermittently x 1 week. She has a primary medical history of major depressive disorder, hypothyroid, IBS, insomnia, GERD, obesity, anxiety, and lung disease. Patient stated that the pain was left-sided and radiated around to her back. Patient follows with cardiology and was seen in the office this morning. Workup in the ED was overall benign. Patient had mild anemia with a hemoglobin of 10.1, WBC stable at 4.7, slightly hypokalemic with potassium of 3.4, D-dimer 0.77. Troponin negative. Patient had echo which revealed LVEF is 55%, normal biventricular systolic function. No significant valvular stenosis or regurgitation. Patient also had chest CTA which showed no evidence of PE or consolidation or masses. Cardiology was consulted from the emergency department who recommended patient be admitted and taken for LHC. Patient has a heart score of 2. I was consulted for admission, I agreed to admit the patient. Plan of care as follows: #Unstable angina #History of syncopal episode #Endothelial dysfunction ? Patient states that she thinks she had a syncopal episode approximately 3 weeks ago. She states she fell in the shower and is unsure what caused the fall. Patient does state that she injured her knee but did not intervention. She states since that time she has had worsening shortness of breath and lightheadedness. She does state that she also has had tingling/numbness down her left arm and increased fatigue. Head CT unremarkable. ? Patient was taken for left heart cath earlier today. Per report patient had mild nonflow?limiting coronary artery disease, slow flow down the LAD consistent with either endothelial dysfunction or diastolic dysfunction with elevated LVEDP. Recommendations for risk factor modification, treatment of endothelial dysfunction, low-dose diuretics, tighter control of hypertension. Patient doing well after heart cath, denies chest pain currently. Will observe overnight and consult cardiology for medical management recommendations. Patient was started on isosorbide 60 mg daily and spironolactone 25 mg daily will follow-up with cardiology in 1 week. Patient also prescribed nitro sublingual every 5 minutes as needed for chest pain. #Morbidly obese, BMI 40 ? Obesity complicates all aspects of care. #Major depressive disorder ? Patient should continue depression medications amitriptyline 50 mg at bedtime, Rexulti 1 mg daily, Wellbutrin 50 mg daily, BuSpar 30 mg twice daily, escitalopram 20 mg at bedtime. #GERD ? Patient should continue famotidine 40 mg at bedtime and omeprazole 40 mg daily. #Hypothyroid ? Continue levothyroxine 125 mcg daily, TSH within normal limits. Total time spent on discharge 32 minutes in counseling, documentation, chart review, and direct care with patient. Exam Data for Last 24 hours Vital signs and Labs for Last 24 Hours: Temp Pulse Resp BP Pulse Ox O2 Del Method 98.2 F 71 18 107/73 L 94 L Room Air 03/03/25 08:00 03/03/25 08:00 03/03/25 08:00 03/03/25 08:00 03/03/25 08:25 03/03/25 08:25 Laboratory Results - last 24 hr 03/02/25 10:03: WBC 4.7 L D, RBC 4.09 L, Hgb 10.1 L, Hct 33.9 L, MCV 82.9, MCH 24.7 L, MCHC 29.8 L, RDW 17.0, Plt Count 200, MPV 10.4, Neut % (Auto) 65.0, Lymph % (Auto) 21.3, [place] % (Auto) 7.4, Eos % (Auto) 5.7, Baso % (Auto) 0.4, Neut # (Auto) 3.1, Lymph # (Auto) 1.0, [place] # (Auto) 0.4, Eos # (Auto) 0.3, Baso # (Auto) 0.0, Sodium 137, Potassium 3.4 L, Chloride 100, Carbon Dioxide 33 H, Anion Gap 7.4, BUN 8 D, Creatinine 0.80, Estimated Creat Clear 138, Estimated GFR 73, Est GFR ( Amer) 89, Glucose 113 H, Calcium 8.3 L, Total Bilirubin 0.5, AST 40 H, ALT 25, Alkaline Phosphatase 117, Troponin I < 0.01, Total Protein 7.3, Albumin 3.1 L, Globulin 4.2 H, Albumin/Globulin Ratio 0.7 L, HCV Ab NAZIA w/Rflx PCR Qn Negative, HIV Ag/Ab Combo Qual Negative 03/02/25 10:05: TSH 0.49, Free T4 1.81 03/02/25 16:48: Troponin I < 0.01 03/03/25 05:45: WBC 5.2, RBC 3.89 L, Hgb 9.7 L, Hct 32.0 L, MCV 82.3, MCH 24.9 L , MCHC 30.3 L, RDW 16.8, Plt Count 194, MPV 10.8 H, Neut % (Auto) 66.5, Lymph % (Auto) 19.6, [place] % (Auto) 7.5, Eos % (Auto) 5.4, Baso % (Auto) 0.6, Neut # (Auto) 3.5, Lymph # (Auto) 1.0, [place] # (Auto) 0.4, Eos # (Auto) 0.3, Baso # (Auto) 0.0, Sodium 135 L, Potassium 3.6, Chloride 103, Carbon Dioxide 31 H, Anion Gap 4.6 L, BUN 5 L D, Creatinine 0.80, Estimated Creat Clear 70, Estimated GFR 73, Est GFR ( Amer) 89, Glucose 105 H, Calcium 8.0 L, Magnesium 2.1, Triglycerides 98, Cholesterol 126 L, LDL Cholesterol Direct 69.88 L, VLDL Cholesterol 20, HDL Cholesterol 24 L, Cholesterol/HDL Ratio 5.3 H Temp Pulse Resp BP Pulse Ox O2 Del Method 97.9 F 74 13 126/69 96 Room Air 03/02/25 09:48 03/02/25 10:30 03/02/25 10:30 03/02/25 10:30 03/02/25 10:30 03/02/25 10:30 Laboratory Results - last 24 hr 03/02/25 10:03: WBC 4.7 L D, RBC 4.09 L, Hgb 10.1 L, Hct 33.9 L, MCV 82.9, MCH 24.7 L, MCHC 29.8 L, RDW 17.0, Plt Count 200, MPV 10.4, Neut % (Auto) 65.0, Lymph % (Auto) 21.3, [place] % (Auto) 7.4, Eos % (Auto) 5.7, Baso % (Auto) 0.4, Neut # (Auto) 3.1, Lymph # (Auto) 1.0, [place] # (Auto) 0.4, Eos # (Auto) 0.3, Baso # (Auto) 0.0, Sodium 137, Potassium 3.4 L, Chloride 100, Carbon Dioxide 33 H, Anion Gap 7.4, BUN 8 D, Creatinine 0.80, Estimated Creat Clear 138, Estimated GFR 73, Est GFR ( Amer) 89, Glucose 113 H, Calcium 8.3 L, Total Bilirubin 0.5, AST 40 H, ALT 25, Alkaline Phosphatase 117, Troponin I < 0.01, Total Protein 7.3, Albumin 3.1 L, Globulin 4.2 H, Albumin/Globulin Ratio 0.7 L I & O for Last 24 hours: Intake & Output 02/28/25 03/01/25 03/02/25 03/03/25 23:59 23:59 23:59 23:59 Intake Total 1100 / 1100 360 / 360 Output Total 0 / 0 0 / 0 Balance 1100 / 1100 360 / 360 Weight 116.573 kg 122.787 kg Intake & Output 02/27/25 02/28/25 03/01/25 03/02/25 23:59 23:59 23:59 23:59 Weight 257 lb Constitutional Constitutional: no acute distress, morbidly obese and cooperative *Routine HEENT Exam Head: Present normocephalic Eye: Present PERRL ENT: Present mucous membranes moist *Routine Neck Exam Neck: Present supple and full ROM; Absent lymphadenopathy *Routine Respiratory Exam Respiratory: Present CTA bilaterally; Absent accessory muscle use, wheezes or crackles *Routine Cardiovascular Exam Cardiovascular: Present RRR, Normal S1 and Normal S2; Absent murmur, gallop or rubs *Routine Abdominal Exam Abdominal: Present soft and normoactive bowel sounds; Absent tenderness *Routine Rectal Exam Patient deferred: visual exam *Routine Exam Patient deferred: external exam *Routine Extremities Exam Extremities: Present edema and pulses intact; Absent cyanosis *Routine Skin Exam Skin: Present intact; Absent erythema or wounds *Routine Neurological Exam Neurological: Present alert and oriented X3 Routine Psychiatric Exam Psychiatric: Present cooperative Results Data Completed and Pending Labs on day of discharge: Labs from last 24 hours 03/03/25 03/02/25 03/02/25 05:45 16:48 10:05 WBC 5.2 RBC 3.89 L Hgb 9.7 L Hct 32.0 L MCV 82.3 MCH 24.9 L MCHC 30.3 L RDW 16.8 Plt Count 194 MPV 10.8 H Neut % (Auto) 66.5 Lymph % (Auto) 19.6 [place] % (Auto) 7.5 Eos % (Auto) 5.4 Baso % (Auto) 0.6 Neut # (Auto) 3.5 Lymph # (Auto) 1.0 [place] # (Auto) 0.4 Eos # (Auto) 0.3 Baso # (Auto) 0.0 Sodium 135 L Potassium 3.6 Chloride 103 Carbon Dioxide 31 H Anion Gap 4.6 L BUN 5 L D Creatinine 0.80 Estimated Creat Clear 70 Estimated GFR 73 Est GFR ( Amer) 89 Glucose 105 H Calcium 8.0 L Magnesium 2.1 Total Bilirubin AST ALT Alkaline Phosphatase Troponin I < 0.01 Total Protein Albumin Globulin Albumin/Globulin Ratio Triglycerides 98 Cholesterol 126 L LDL Cholesterol Direct 69.88 L VLDL Cholesterol 20 HDL Cholesterol 24 L Cholesterol/HDL Ratio 5.3 H TSH 0.49 Free T4 1.81 HCV Ab NAZIA w/Rflx PCR Qn HIV Ag/Ab Combo Qual 03/02/25 10:03 WBC 4.7 L D RBC 4.09 L Hgb 10.1 L Hct 33.9 L MCV 82.9 MCH 24.7 L MCHC 29.8 L RDW 17.0 Plt Count 200 MPV 10.4 Neut % (Auto) 65.0 Lymph % (Auto) 21.3 [place] % (Auto) 7.4 Eos % (Auto) 5.7 Baso % (Auto) 0.4 Neut # (Auto) 3.1 Lymph # (Auto) 1.0 [place] # (Auto) 0.4 Eos # (Auto) 0.3 Baso # (Auto) 0.0 Sodium 137 Potassium 3.4 L Chloride 100 Carbon Dioxide 33 H Anion Gap 7.4 BUN 8 D Creatinine 0.80 Estimated Creat Clear 138 Estimated GFR 73 Est GFR ( Amer) 89 Glucose 113 H Calcium 8.3 L Magnesium Total Bilirubin 0.5 AST 40 H ALT 25 Alkaline Phosphatase 117 Troponin I < 0.01 Total Protein 7.3 Albumin 3.1 L Globulin 4.2 H Albumin/Globulin Ratio 0.7 L Triglycerides Cholesterol LDL Cholesterol Direct VLDL Cholesterol HDL Cholesterol Cholesterol/HDL Ratio TSH Free T4 HCV Ab NAZIA w/Rflx PCR Qn Negative HIV Ag/Ab Combo Qual Negative DS: Diagnosis Discharge Diagnosis (1) Unstable angina: Status: Acute Code(s): I20.0 - Unstable angina (2) Syncope: Status: Acute Code(s): R55 - Syncope and collapse (3) GERD (gastroesophageal reflux disease): Status: Acute Code(s): K21.9 - Gastro-esophageal reflux disease without esophagitis (4) Depression: Status: Acute Code(s): F32.A - Depression, unspecified Qualifiers: Depression Type: unspecified Qualified Code(s): F32.A - Depression, unspecified (5) Anxiety: Status: Acute Code(s): F41.9 - Anxiety disorder, unspecified (6) Endothelial dysfunction of coronary artery: Status: Acute Code(s): I25.10 - Atherosclerotic heart disease of [place] coronary artery without angina pectoris Meds Home Medications and Allergies Home Medications ?Medication ?Instructions ?Recorded ?Confirmed ?Type zolpidem 10 mg tablet 10 mg PO HSP PRN Insomnia 03/02/25 History fluticasone propionate 50 1 - 2 spr intranasal DAILY 0 06/22/20 03/02/25 History mcg/actuation nasal spray,suspension albuterol sulfate 90 mcg/actuation 2 puff inhalation Q 4HP PRN 11/18/24 03/02/25 History aerosol inhaler Shortness Of Breath famotidine 40 mg tablet 40 mg PO HS 11/18/24 5 History brexpiprazole 1 mg tablet (Rexulti) 1 mg PO DAILY #30 tabs 02/07/25 03/02/25 Rx diclofenac sodium 1 % topical gel 4 g topical QID #50 grams 02/18/25 03/02/25 Rx (Arthritis Pain (diclofenac)) levothyroxine 125 mcg tablet 125 mcg PO DAILY 02/18/25 03/02/25 History montelukast 10 mg tablet 10 mg PO HS 02/18/25 5 History plecanatide 3 mg tablet (Trulance) 3 mg PO DAILY 02/1803/02/25 History amitriptyline 50 mg tablet 50 mg PO HS 03/02/25 History bupropion HCl 150 mg 24 hr tablet, 150 mg PO DAILY 03/02/25 History extended release bupropion HCl 300 mg 24 hr tablet, 300 mg PO DAILY 03/02/25 History extended release buspirone 30 mg tablet 15 mg PO BID 03/02/25 History cetirizine 10 mg tablet (All Day 10 mg PO DAILYP PRN a llergy 03/02/25 03/02/25 History Allergy (cetirizine)) symptoms cyclobenzaprine 10 mg tablet 10 mg PO HS 03/02/25 10/01/27 History escitalopram oxalate 20 mg tablet 20 mg PO HS 03/02/25 03/02/25 History fluticasone 100 mcg-salmeterol 50 1 inh inhalation BID 03/02/25 03/02/25 History mcg/dose blistr powdr for inhalation (Advair Diskus) gabapentin 100 mg capsule 300 mg PO DAILY 03/02/25 History omeprazole 40 mg capsule,delayed 40 mg PO DAILY 03/02/25 History release ondansetron 8 mg disintegrating 8 mg PO TIDP PRN nause a and 03/02/25 03/02/25 History tablet vomiting promethazine 25 mg tablet 12.5 - 25 mg PO Q6HP PRN [place] 03/02/25 03/02/25 History And Vomiting valacyclovir 1 gram tablet 1,000 mg PO DAILY 03/02/25 03/02/25 History isosorbide mononitrate 60 mg 60 mg PO DAILY 30 days #3 0 tabs 03/03/25 Rx tablet,extended release 24 hr nitroglycerin 0.4 mg sublingual 0.4 mg sublingual Q5M PRN chest 03/03/25 Rx tablet pain #30 tabs spironolactone 25 mg tablet 25 mg PO DAILY 30 days #30 tabs 03/03/25 Rx New Prescriptions to Start Prescriptions: isosorbide mononitrate [place] nitroglycerin [place] spironolactone [place] Allergies Allergy/AdvReac Type Severity Reaction Status Date / Time pregabalin (From Lyrica) Allergy Severe Swelling Verified 03/02/25 08:52 of Lip/Tongue/Throat duloxetine (From Cymbalta) Allergy Mild Irritable Verified 03/02/25 08:52 latex Allergy Mild Rash Verified 03/02/25 08:52 sulfamethoxazole (From AdvReac Mild Nausea Verified 03/02/25 08:52 Bactrim) trimethoprim (From Bactrim) AdvReac Mild Nausea Verified 03/02/25 08:52 Discharge Plan Disposition Patient Disposition: Home, Self-Care Condition: Good Follow up Plan Follow up with: Surinder Rocha [Primary Care Provider, Medical] - Enter time for follow up Shorty Slaughter MD [Staff Physician, Cardiology] - 03/10/25 11:15 am Prescriptions/Medication Reconciliation: New isosorbide mononitrate 60 mg Tablet Extended Release 24 Hr 60 mg PO DAILY 30 Days Qty: 30 0RF spironolactone 25 mg Tablet 25 mg PO DAILY 30 Days Qty: 30 0RF nitroglycerin 0.4 mg tablet, sublingual 0.4 mg sublingual Q5M PRN (Reason: chest pain) Qty: 30 0RF Rx Instructions: do not exceed 3 doses per episode Continued bupropion HCl 300 mg tablet extended release 24 hr 300 mg PO DAILY famotidine 40 mg tablet 40 mg PO HS Patient Comments: TAKE 1 TABLET BY MOUTH EVERY DAY AT BEDTIME albuterol sulfate 90 mcg/actuation HFA aerosol inhaler 2 puff inhalation Q4HP PRN (Reason: Shortness Of Breath) Patient Comments: INHALE 1 PUFF BY MOUTH EVERY 4 HOURS NEEDED FOR WHEEZING Rexulti 1 mg tablet 1 mg PO DAILY Qty: 30 2RF levothyroxine 125 mcg tablet 125 mcg PO DAILY Patient Comments: TAKE 1 TABLET BY MOUTH ONCE DAILY montelukast 10 mg tablet 10 mg PO HS Patient Comments: TAKE 1 TABLET BY MOUTH ONCE DAILY AT NIGHT Trulance 3 mg tablet 3 mg PO DAILY Patient Comments: TAKE 1 TABLET BY MOUTH ONCE DAILY diclofenac sodium [Arthritis Pain (diclofenac)] 1 % gel 4 g topical QID Qty: 50 0RF Rx Instructions: apply to single knee, ankle, foot; for foot includes sole/toes/top of foot valacyclovir 1 gram tablet 1,000 mg PO DAILY promethazine 25 mg tablet 12.5 - 25 mg PO Q6HP PRN (Reason: Nausea And Vomiting) Patient Comments: TAKE 1/2 TO 1 (ONE-HALF TO ONE) TABLET BY MOUTH EVERY 6 HOURS NEEDED gabapentin 100 mg capsule 300 mg PO DAILY Patient Comments: TAKE 1 CAPSULE BY MOUTH ONCE DAILY IN THE MORNING fluticasone propion-salmeterol [Advair Diskus] 100-50 mcg/dose blister with device 1 inh INHALATION BID Patient Comments: INHALE 1 DOSE BY MOUTH TWICE DAILY bupropion HCl 150 mg tablet extended release 24 hr 150 mg PO DAILY Patient Comments: TAKE 1 TABLET BY MOUTH ONCE DAILY TAKE WITH 300MG DOSE FOR A TOTAL OF 450MG DAILY cetirizine [All Day Allergy (cetirizine)] 10 mg tablet 10 mg PO DAILYP PRN (Reason: allergy symptoms) amitriptyline 50 mg tablet 50 mg PO HS ondansetron 8 mg tablet,disintegrating 8 mg PO TIDP PRN (Reason: nausea and vomiting) escitalopram oxalate 20 mg tablet 20 mg PO HS cyclobenzaprine 10 mg tablet 10 mg PO HS Patient Comments: TAKE 1 TABLET BY MOUTH AT NIGHT NEEDED FOR MUSCLE SPASM omeprazole 40 mg Capsule,Delayed Release(Dr/Ec) 40 mg PO DAILY buspirone 30 mg tablet 15 mg PO BID zolpidem 10 MG tablet 10 mg PO HSP PRN (Reason: Insomnia) fluticasone propionate 120 SPR/BOT bottle 1 - 2 spr intranasal DAILY Discontinued levofloxacin 500 mg Tablet 125 mg PO DAILY Problem Reconciliation Problems Reviewed?: Yes Patient Discharge Instructions ACTIVITY: Continue current activity and No heavy lifting DIET: advance to your usual diet Patient Instructions: DI for Syncope in Adults (Fainting), DI for Cardiac Catheterization, DI for Surgical Site Infection, DI for Chest Pain, Moderate Sedation Print Language: [place] Providers Primary Care Provider: Surinder Rocha Admit Provider: Ed Mi Attending Provider: Ed Mi
[2025-03-03] MEDS: LEVOTHYROXINE 125MCG (0.125MG) TAB 125 MCG PO (09:24)
[2025-03-03] MEDS: SPIRONOLACTONE 25MG TABLET 25 MG PO (09:25)
[2025-03-03] MEDS: GABAPENTIN 100MG CAPSULE 300 MG PO (09:25)
[2025-03-03] MEDS: ISOSORBIDE MONO 60MG TAB.ER.24H 60 MG PO (09:25)
[2025-03-03] MEDS: BUSPIRONE HCL 10 MG TABLET 15 MG PO (09:26)
[2025-03-03 10:06] LABS: Hemoglobin A1C 5.9 % (4.0-6.0)
--- NOTE | 2025-03-03 10:11 | CT_ITS ---
FINAL REPORT TECHNIQUE: Axial CT images were performed through the head. Coronal and sagittal reformatted images were submitted. This study was performed with techniques to keep radiation doses as low as reasonably achievable (ALARA). Individualized dose reduction techniques using automated exposure control or adjustment of mA and/or kV according to the patient's size were employed. CT examination of the head was performed without intravenous contrast using axial images from the vertex through the foramen magnum. Multiplanar reconstructions in the sagittal and coronal planes were subsequently performed. This study was performed with techniques to keep radiation doses as low as reasonably achievable (ALARA). Individualized dose reduction techniques using automated exposure control or adjustment of mA and/or kV according to the patient's size were employed. CLINICAL HISTORY: fall, dizziness, headache fall x 3 weeks ago COMPARISON: CTA of the head 07/23/2021 FINDINGS: The ventricles are normal in size. There is no evidence of hemorrhage. There is no mass or edema identified. There is no abnormal extra-axial fluid seen. The sinuses are well aerated. IMPRESSION: No acute intracranial process. Reviewed, Interpreted and Dictated by Chuy Wright MD Transcribed by Jasmin Lawrence Authenticated and [facility]
--- NOTE | 2025-03-03 12:39 | P.PN_ITS ---
Subjective Subjective Date: 03/03/25 Time: 09:30 Interval history: Heart cath yesterday revealed nonobstructive disease with elevated EDP as likely etiology for her symptoms. She reports some mild chest pain this morning but overall stable. Exam Data for Last 24 hours Vital signs and Labs for Last 24 Hours: Temp Pulse Resp BP Pulse Ox O2 Del Method 98.5 F 82 18 100/55 L 94 L Room Air 03/03/25 11:55 03/03/25 11:55 03/03/25 11:55 03/03/25 11:55 03/03/25 11:55 03/03/25 11:55 Laboratory Results - last 24 hr 03/02/25 16:48: Troponin I < 0.01 03/03/25 05:45: WBC 5.2, RBC 3.89 L, Hgb 9.7 L, Hct 32.0 L, MCV 82.3, MCH 24.9 L , MCHC 30.3 L, RDW 16.8, Plt Count 194, MPV 10.8 H, Neut % (Auto) 66.5, Lymph % (Auto) 19.6, [place] % (Auto) 7.5, Eos % (Auto) 5.4, Baso % (Auto) 0.6, Neut # (Auto) 3.5, Lymph # (Auto) 1.0, [place] # (Auto) 0.4, Eos # (Auto) 0.3, Baso # (Auto) 0.0, Sodium 135 L, Potassium 3.6, Chloride 103, Carbon Dioxide 31 H, Anion Gap 4.6 L, BUN 5 L D, Creatinine 0.80, Estimated Creat Clear 70, Estimated GFR 73, Est GFR ( Amer) 89, Glucose 105 H, Hemoglobin A1c 5.9, Calcium 8.0 L, Magnesium 2.1, Triglycerides 98, Cholesterol 126 L, LDL Cholesterol Direct 69.88 L, VLDL Cholesterol 20, HDL Cholesterol 24 L, Cholesterol/HDL Ratio 5.3 H I & O for Last 24 hours: Intake & Output 02/28/25 03/01/25 03/02/25 03/03/25 23:59 23:59 23:59 23:59 Intake Total 1100 / 1100 360 / 360 Output Total 0 / 0 0 / 0 Balance 1100 / 1100 360 / 360 Weight 257 lb 270 lb 11.2 oz Constitutional Constitutional: no acute distress and cooperative *Routine HEENT Exam Eye: Present PERRL *Routine Respiratory Exam Respiratory: Present CTA bilaterally; Absent accessory muscle use, wheezes or crackles *Routine Cardiovascular Exam Cardiovascular: Present RRR, Normal S1 and Normal S2; Absent murmur, gallop or rubs *Routine Abdominal Exam Abdominal: Present soft; Absent tenderness *Routine Extremities Exam Extremities: Present pulses intact; Absent cyanosis or edema *Routine Skin Exam Skin: Present intact; Absent erythema or wounds *Routine Neurological Exam Neurological: Present alert and oriented X3 Routine Psychiatric Exam Psychiatric: Present cooperative Progress Note: A&P Assessment and plan (1) Unstable angina: Status: Acute (2) Syncope: Status: Acute (3) GERD (gastroesophageal reflux disease): Status: Acute (4) Depression: Status: Acute (5) Anxiety: Status: Acute Assessment and Plan Assessment and Plan for All Diagnoses:: Angina Pectoris - [facility] this admissio shows mild nonobstructive disease, elevated EDP likely etiology for symptoms - Will start Aldactone 25 and Imdur 60. Advised on aggressive weight loss and use of her CPAP Morbid obesity, BMI 42 - Uncontrolled, addressed further as an outpatient Obstructive sleep apnea - Noncompliant with CPAP, encouraged compliance CV stable for discharge home with addition of Aldactone 25 mg daily and Imdur 60 mg 1 p.o. daily. Office follow-up 2 weeks.
[2025-03-03] MEDS: ACETAMINOPHEN 325MG TAB 650 MG PO (13:38)
--- NOTE | 2025-03-04 10:26 | SW/DCPLANNER ---
Spoke with patient on the phone. Patient stated that she is sore and weak today. Patient stated that she is aware of her upcoming appointments. Patient stated that she was able to get her new medicine picked up from clinic pharmacy. Patient stated that she has no concerns or questions at this time. Darlene Amaro
== END 2025-03-03 15:41 | disposition home or self-care (01) ==
LOC: ER 11:12 → 2ND 11:19
PROVIDERS: Internal Medicine; Nurse Practitioner Family; Admitting Provider Student in an Organized Health Care Education/Training Program; Emergency Provider Student in an Organized Health Care Education/Training Program; PCP Family Medicine; Visit Provider Student in an Organized Health Care Education/Training Program
PROC: 4A023N7 Measurement of Cardiac Sampling and Pressure, Left Heart, Percutaneous Approach (ICD-10-PCS; CPT 93452; principal; 2025-03-02 13:00)
DX: I25.110 Atherosclerotic heart disease of native coronary artery with unstable angina pectoris (principal); F41.9 Anxiety disorder, unspecified; F32.9 Major depressive disorder, single episode, unspecified; K21.9 Gastro-esophageal reflux disease without esophagitis; E66.01 Morbid (severe) obesity due to excess calories; Z68.41 Body mass index [BMI] 40.0-44.9, adult; G47.33 Obstructive sleep apnea (adult) (pediatric); E03.9 Hypothyroidism, unspecified; Z79.890 Hormone replacement therapy; Z79.899 Other long term (current) drug therapy; R51.9 Headache, unspecified; R42 Dizziness and giddiness; W19.XXXA Unspecified fall, initial encounter; Z91.81 History of falling
CPT/HCPCS: 93458; 96374; 36415; 70450; 80048; 80053; 80061; 83036; 83735; 84439; 84443; 84484; 85025; 86803; 87389; 93005; 93306; 94640; 99152; 99285; C1725; C1769; G0378; J1200; J1644; J1650; J2003; J2250; J2270; J3010; J7040; Q9967

== ENCOUNTER 2025-03-22 14:45 | Outpatient (CLI) | payer MEDICAID, SELFPAY ==
--- NOTE | 2025-03-22 16:26 | XR_ITS ---
FINAL REPORT CLINICAL HISTORY: left foot pain FINDINGS: LEFT FOOT Three views of the left foot demonstrate no acute fracture or dislocation. There is normal mineralization. No evidence of bony erosion is seen. There is mild multijoint degenerative disease, most pronounced at the first MTP joint. The soft tissues are unremarkable. IMPRESSION: Degenerative change without acute bony abnormality. Reviewed, Interpreted and Dictated by Nevin Brennan MD Transcribed by Izabela Lopez Authenticated and [facility]
--- NOTE | 2025-03-22 16:26 | XR_ITS ---
FINAL REPORT CLINICAL HISTORY: right foot pain FINDINGS: RIGHT FOOT 3 views of the right foot were obtained. There is no acute fracture or dislocation. There is normal mineralization. No bony erosion is seen. There is multijoint degenerative disease, most pronounced at the IP of the great toe and first MTP joint. There is an inferior calcaneal spur. Soft tissues are unremarkable. IMPRESSION: Degenerative changes without acute bony abnormality. Reviewed, Interpreted and Dictated by Nevin Brennan MD Transcribed by Izabela Lopez Authenticated and [facility]
--- OUTSIDE RECORDS SUMMARY | 2025-03-22 19:08 | XMS_ITS | Data Portability ---
Author Organization [facility] CHRYSTAL Pfeiffer [place] CLOSED Address [address] [place] [address] Care Team Providers Care Van Owner Operator Name Role Phone BALJIT DAVID Primary Care Provider Assessment No assessment recorded. Plan of Treatment Reminders Order Date Submit Date Provider Last Modified By Organization Details Last Modified Time Details Appointments None recorded. Lab None recorded. Referral None recorded. Procedures None recorded. Surgeries None recorded. Imaging None recorded. Medication Orders betametha sone valerate 0.1 % topical ointment 2021 022 [facility] [address] [place], [address], 2 12:06:15 Compound Premarin Nasal [place] 2019 020 INTERFACE [employer], [address], [place], [address], 0 13:46:10 meclizine 25 mg chewable tablet 2019 020 INTERFACE [facility], [address] [place], [address], 0 13:43:15 Pepcid 20 mg tablet 2018 019 [email or web address] [facility], [address] [place], [address], 9 09:40:43 Bactrim DS 800 mg-160 mg tablet 2018 019 INTERFACE [facility], [address] [place], [address], 9 08:44:50 Xyzal 5 mg tablet 2018 019 INTERFACE [facility], [address] [place], [address], 9 08:44:46 Patient TargetsNo targets recorded. Patient Instructions Encounter Date Encounter Id Patient Instructions Last Modified By Organization Details Last Modified Time 03/15/2019 [id number] 1. Bactrim DS 800-160mg PO BID for [...] two with Dr. Liang for continued monitoring. main campus [facility] center Not available 03/15/2019 09:01:36 04/07/2019 [id number] 1. Laryngoscopy performed ; clinical photos obtained. [...] follow-up. [email or web address] Not available 04/07/2019 08:52:06 04/20/2020 [id number] dizziness: care instructions [email or web address] Not available 04/20/2020 [...] follow-up. [email or web address] Not available 04/20/2020 13:33:31 04/20/2020 [id number] dizziness: care instructions lexy Not available 04/20/2020 13:16:46 hearing loss: ca re instructions lexy Not available 04/20/2020 13:16:47 11/07/2021 [id number] It was a dante van seeing this [...] scan of sinuses. Recheck 3-4 months at [facility] office We reviewed the pertinent anatomy and [...] ast No observ ation record ed. [email or web address] [facility] [address] [facility], [place], [address], 12/09/2023 16:26:50 Result Notes None recorded. Problems Name Problem SNOMED Code Status Onset Date Resolution Date Notes Provider Name and Address Organization Details Recorded Time Allergic rhinitis 46607741 Active 2015 From Automated Load;Provi rin: Tamar Liang;St atus: Active Not Available [facility] 6 05:46:04 Deviated nasal septum 702092999 Active 2015 From Automated Load;Provi rin: Tamar Liang;St atus: Active Not Available [facility] 6 05:46:04 Dizziness and giddiness 012127195 Active 2015 From Automated Load;Provi rin: Tamar Liang;St atus: Active Not Available [facility] 6 05:46:04 Sensorine ural hearing loss 83693583 Active 2015 Provider: Tamar Liang; atus: Active Not Available [facility] 6 05:46:04 Sensorine ural hearing loss of bilateral ears 196839297 Active 2015 From Automated Load;Provi rin: Tamar Liang; atus: Active Not Available [facility] 6 05:46:04 Chronic cystitis 41586018 Active 2015 From Automated Load;Provi rin: Gary Toro Jr;Sta tus: Active Not Available [facility] 6 05:46:04 Dysuria 91307813 Active 2015 From Automated Load;Provi rin: Gary Toro Jr;Sta tus: Active Not Available [facility] 6 05:46:04 Increased frequency of urination 165962276 Active 2015 From Automated Load;Provi rin: Gary Toro Jr;Sta tus: Active Not Available [facility] 6 05:46:04 Problem Notes None recorded. Procedures Surgical History Date Name Laterality Status Provider Name and Address Organization Details Recorded Time 11/08/19 22 Binocular Microscopy completed Janell Cavanaugh [facility] 11/07/2021 11:38:25 09/15/19 21 Binocular Microscopy cancelled DAKOTA CHOU MD [facility] [place], [address], [facility] 09/13/2020 17:05:00 09/15/19 21 Cerumen removal - Instruments, Unilateral cancelled DAKOTA CHOU MD [facility] [place], [address], [facility] 09/13/2020 17:05:00 04/20/20 20 Tympanogram completed UGO SURESH AUD [address] [place], [address], [facility] 04/20/2020 13:15:51 04/20/20 20 Audiogram completed UGO SURESH, AUD [address] [place], [address], [facility] 04/20/2020 13:15:49 04/20/20 20 [place] completed UGO SURESH, AUD [address] [place], [address], [facility] 04/20/2020 13:16:31 04/20/20 20 Binocular Microscopy completed DAKOTA CHOU MD [address] [place], [address], [facility] 04/20/2020 13:30:50 04/20/20 20 Cerumen removal - Instruments, Unilateral completed DAKOTA CHOU MD [address] [place], [address], [facility] 04/20/2020 13:30:12 04/07/20 19 Laryngoscopy Flex completed [facility] 04/07/2019 08:45:25 03/05/20 19 Tympanogram completed UGO SURESH, AUD [address] [place], [address], [facility] 03/05/2019 15:18:06 03/05/20 19 Audiogram completed UGO SURESH, AUD [address] [place], [address], [facility] 03/05/2019 15:18:04 09/26/19 19 Ears/Nose/Throat Surgery completed Lidia Robison [facility] 03/05/2019 14:57:32 Joint Replacement completed Wanda Vega [facility] 08/06/2017 09:52:17 Other completed Wanda Vega [facility] 08/06/2017 09:52:47 [facility] 03/05/2019 14:47:12 [facility]lectomy [facility] 03/05/2019 14:47:35 Imaging Results None recorded. Procedure Notes None recorded. Medical Equipment None Reported. Allergies Allergen ID Allergen Name Allergen Category Reaction Reaction Severity Criticality Documentation Date Start Date Code Code System Note Provider Name and Address Organization Details Recorded Time 089008 Cymbalta medicatio n Not available Not available Not available 03/28/20162013 60443 4 RxNorm Comme nt: Creat ed By: Butle r Newry e;Cre ated Date: 05/02 9:21: 34 AM; Not Available [facility] 6 12:43:11 156916 Lyrica medicatio n other Not available Not available 03/29/20162011 81393 1 RxNorm React ion: LANG LONGORIA ING; Comme nt: Creat ed By: Jerica Peoples sa;Cr eated Date: 2011 7:30: 01 AM; Not Available [facility] 6 04:38:16 315909 latex environme nt,medica tion Not available Not available Not available 03/29/20162010 27290 91 RxNorm Comme nt: Creat ed By: Delfina Siddiqi is;Cr eated Date: 2010 12:00 :48 PM; Not Available [facility] 6 05:28:45 Medications Name Sig Start Date Stop Date Status Note LastModified by Organization Details LastModified Time binaxnow covid-19 ag card home test kit active Not Available Not Available Not Available eq sinus 12-hour 120mg tab TAKE 1 TABLET BY MOUTH TWICE DAILY NEEDED FOR CONGESTI ON active Not Available Not Available No t Available Compound Premarin Nasal [place] 25mg/30m l- 3 sprays in affected nostril [...] Not Available No t Available Fluarix Quad 6450-9287 (PF) 60 mcg (15 mcg x 4)/0.5 mL IM syringe 03/05 completed Not Available Not Available Not Available Shingrix (PF) 50 mcg/0.5 mL intramuscu lar suspension , kit 03/05 completed Not Available Not Available Not Available Fluzone Quad (PF) 60 mcg (15 mcg x 4)/0.5 mL IM syringe 03/15 completed Not Available Not Available Not Available Fluzone Quad 4178-6617 (PF) 60 mcg (15 mcg x 4)/0.5 [...] Address Organization Details Last Updated DateTime 2 986024. 12 g 42.6 kg/m2 170.18 cm 98.9 [degF] 98 % 98 % 88 /min 131/93 mm[Hg] [facility] 2 10:56:36 Date Recorded Body height Body mass index (BMI) Body weight Heart rate Oxygen saturation Oxygen saturation in Arterial blood by Pulse oximetry Body temperature Systolic And Diastolic Provider Name and Address Organization Details Last Updated DateTime 9 170.18 cm 0 kg/m2 4.54 g 98 /min 99 % 99 % 97.6 [degF] 132/84 mm[Hg] [facility] 9 08:06:05 Date Recorded Body height Body mass index (BMI) Body weight Body temperature Heart rate Systolic And Diastolic Provider Name and Address Organization Details Last Updated DateTime 9 170.18 cm 35.5 kg/m2 870941. 31 g 97.5 [degF] 90 /min 105/70 mm[Hg] Jayne Multani [facility] 9 08:00:42 Date Recorded Body height Body mass index (BMI) Body weight Body temperature Heart rate Oxygen saturation Oxygen saturation in Arterial blood by Pulse oximetry Systolic And Diastolic Provider Name and Address Organization Details Last Updated DateTime 0 170.18 cm 37 kg/m2 992833. 8 g 97.4 [degF] 86 /min 94 % 94 % 123/77 mm[Hg] Allison Fox [facility] 0 12:53:25 Social History Question Answer Notes LastModified by [employer] Details LastModified Time Tobacco Smoking Status Never Smoker [facility] 08/06/2017 09:51:59 How Much Tobacco Do You Chew? None [email or web address] Information not available 03/05/2019 What Was The Date Of Your Most Recent Tobacco Screening? 09/24/2017 Information n ot available 06/22/2019 How Much Tobacco Do You Smoke? No [email or web address] Information not available 03/05/2019 Sex: Unknown Functional Status Question Answer Note LastModified by [employer] Details LastModified Time What is your level of alcohol consumption? None [email or web address] Information not available 08/06/2017 Do you or have you ever used smokeless tobacco? Never used smokeless tobacco [email or web address] Information not available 03/05/2019 Mental Status None [...] available 05/2018 14:45:56 Medical History Condition Response Emphysema N COPD N Diabetes N Bleeding Disorder N Arthritis Y Acid Reflux (GERD) Y Asthma N Heart Disease N Rheumatoid Arthritis N Hypertension N Gynecological HistoryNo gynecological history recorded. Obstetrics History GPAL:G 0 P 0 0 0 0 Past Encounters Encounter ID Performer Location Encounter Start Date Encounter Closed Date Diagnosis/Indication Diagnosis SNOMED-CT Code Diagnosis ICD10 Code Diagnosis IMO Codes Diagnosis Note [id number] JAMISON FRANCIS MD [facility] [place] [id number] 1 08/06/2017 09:35:10 08/06/2017 10:20:27 Keratoconjunctivitis sicca, not specified as Sj gren's 90415795 H16.223 she has ongoing worsening dry mouth and dry eyes along with chronic fatigue and arthralgia 's. has positive parotid enlargemen t. All these features raises concerns about Sjogren's syndrome. Discussed and labs obtained. If inconclusi ve , we will do the minor salivary gland biopsy Fibromyalgia 339260281 M 78.7 chronic and symptomati c. she has typical tender points and somatic complaints . Needs to maintain the gabapentin 300 mg bid. Higher dose makes her sleepy. 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 This would make her dry also but we might need to change it to some other medication to help her sleep. [id number] JAMISON FRANCIS MD [place] [id number] 1 09/24/2017 08:35:13 09/24/2017 09:30:09 Keratoconjunctivitis sicca, not specified as Sj gren's 13813778 H16.223 Chronic and with negative studies. Normal RANDOLPH screen and negative anti SSA/ SSB abs. normal ESR. No need for further investigat ions at this point. Fibromyalgia 934338253 M 79.7 chronic and symptomati c. she has typical tender points and somatic complaints . Has classic allodynia with central sensitizat ion pains. Needs to maintain the gabapentin 300 mg bid. Higher dose makes her sleepy. 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 Low salt and no sugar diet is the way to go. Achilles tendinitis 1165 4001 M76.61 M76.62 she has rather severe bilateral chronic achilles tendinopat hy with posterior heel spurs. I would suggest to avoid steroid injections at the site due to risk for tendon rupture. Local care, PT and use of voltaren. [id number] TAMAR LIANG MD DE ENT [facility] CLOSED [address] [place] [address] 03/05/2019 14:18:58 03/09/2019 08:17:22 Ear pressure sensation 404174896 H93.8X9 Eczema of external auditory canal 89800851 H60.549 - L>>R Nasal vestibulitis 76776 000 J34.89 - Bilaterall y R>>L Cellulitis of face 2001 L03.211 - Upper lip and nasal labial folds Sensorineu ral hearing loss of bilateral ears 172240830 H90.3 - Audiogram 03/05/19: Type A tymps bilaterall y. Right moderate to severe SNHL and Left moderate SNHL [id number] KRISTA DOMÍNGUEZ DE ENT [facility] CLOSED [address] [place] [address] 03/05/2019 15:07:29 03/05/2019 16:07:49 Sensorineural hearing loss of bilateral ears 592847823 H90.3 Bilateral earache 138208 003 H92.03 Bilateral tinnitus 21647 68988 102 H93.13 [id number] REGINO REYES APRN [facility] CLOSED [address] [place] [address] 03/15/2019 08:00:06 03/17/2019 14:39:46 Eczema of external auditory canal 83636855 H60.543 - L>R - 03/15/19: EAC's and TM's clear Nasal vestibulitis 59745 000 J34.89 - Bilateral - slow improvemen t Cellulitis of face 2001 L03.211 - Upper lip and nasal labial folds - slow improvemen t - allergic vs viral vs staph Ear pressu re sensation 029861945 H93.8X3 - L>R Sensorineu ral hearing loss of bilateral ears 954707702 H90.3 - Audiogram 03/05/19: Type A tymps bilaterall y. Right moderate to severe SNHL and Left moderate SNHL Dysfunctio n of bilateral eustachian tubes 0892538523 281629 H69.93 Posterior rhinorrhea 758 55470 R09.82 - chronic PND - AR vs VMR On examina tion - macroglossia 548171147 K14.8 [id number] MD REJI FRANOC ENT [address] [place] [address] 04/07/2019 07:55:48 04/12/2019 09:57:05 Nasal vestibulitis 50415321 J34.89 - resolving Cellulitis of face 2001 L03.211 - Upper lip and nasal labial folds resolving Sensorineu ral hearing loss of bilateral ears 223538325 H90.3 - Audiogram 03/05/19: Type A tymps bilaterall y. Right moderate to severe SNHL and Left moderate SNHL Skin ulcer of nose 47648 3000 J34.0 Migraine 35070304 G43.90 9 Dysphagia 42843041 R13.1 0 Feeling of lump in throat 360723961 F45.8 Dysfunctio n of bilateral eustachian tubes 4705194767 519199 H69.93 Ear pressu re sensation 685389594 H93.8X9 Laryngopha ryngeal reflux 309576232 K21.9 Hiatal hernia 35446515 K 44.9 [id number] MD REJI OSPINA ENT [facility] CLOSED [address] [facility] [place] [place] [address] 04/20/2020 12:45:41 04/20/2020 13:49:38 Nasal vestibulitis 14770585 J34.89 - resolving Cellulitis of face 2001 L03.211 - Upper lip and nasal labial folds resolving Sensorineu ral hearing loss of bilateral ears 881491457 H90.3 - Audiogram 03/05/19: Type A tymps bilaterall y. Right moderate to severe SNHL and Left moderate SNHL Skin ulcer of nose 61896 3000 J34.0 Migraine 89421121 G43.90 9 Dysphagia 60786828 R13.1 0 Feeling of lump in throat 676901338 F45.8 Dysfunctio n of bilateral eustachian tubes 5978876945 683879 H69.93 Ear pressu re sensation 305278575 H93.8X9 Laryngopha ryngeal reflux 753912258 K21.9 Hiatal hernia 44918744 K 44.9 Patulous e ustachian tube 75006767 H69.03 -SUSPECT BILATERAL, START PREMARIN NASAL SPRAY. Impacted c erumen of bilateral ears 8385250526 158724 H61.23 -CLEANED 04/20/20 Dizziness 994832112 R42 -04/20/20 DIOGENES HALLPIKES NORMAL. [id number] KRISTA DOMÍNGUEZ ENT [facility] CLOSED [address] [place] [address] 04/20/2020 13:02:07 04/20/2020 14:02:38 Sensorineural hearing loss of bilateral ears 088832576 H90.3 Bilateral tinnitus 62981 89670 102 H93.13 Dizziness and giddiness 439157307 R42 [id number] DAKOTA CHOU MD [place] [address] [place] [address] 11/07/2021 10:50:36 11/07/2021 11:43:02 Sensorineural hearing loss of bilateral ears 665676048 H90.3 - Audiogram 03/05/19: Type A tymps bilaterall y. Right moderate to severe SNHL and Left moderate SNHL Dysfunctio n of bilateral eustachian tubes 9129469811 360690 H69.93 Eczema of external auditory canal 14698754 H60.549 - 11/07/2021 - LEFT WORSE ; Betamethas one Valerate cream prescribed Retraction of tympanic membrane 54005822 H73.899 - 11/07/2021 - left sided History of surgery 39978 5003 Z98.890 - Sinus surgery- Tonsillect johana Examination of ear 96645 0007 Z01.10 -BILATERAL Bilateral earache 374890 003 H92.03 - 11/07/2021 - intermitte nt Obstructiv e sleep apnea syndrome 09069977 G47.33 CONTINUE CPAP Health Concerns Section Related Observation LastModified by Organization Detai ls LastModified Time None Recorded Concern Status LastModified by Organization Details LastModified Time None Recorded Advance Directives Directive None Recorded Payers Insurance Date Sequence Insurance Name Policy Number Policy Hairston Covered Member ID Hairston Member ID Guarantor Name 12/14/2023 1 [place] [id number] Cielo Chase [id number] Cielo Chase Notes Date Note Type [...] bilateral tinnitus for several years. REJI Reynoso [facility] 03/31/2019 08:41:09 04/07/2019 text/html Cielo returns today [...] is doing well otherwise. TAMAR LIANG MD [address] [place] [address], [address], [facility] 04/07/2019 08:52:22 04/20/2020 text/html This patient returns for recheck of EARS. Since last visit patient reports no change in symptoms with flonase. SHE REPORTS EAR PRESSURE, HEARING HER BREATHING, DIZZINESS WITH BENDING OVER, AND SOME EARACHES IN THE COLD. 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 ARTHRITIS, FIBROMYALGIA, GERD, ECZEMA, S/P SEPTO [facility] 09/25/18 DR. 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 LIANG: Cielo returns today in [...] is doing well otherwise. DAKOTA CHOU MD [address] [place] [address], [address], [facility] 04/20/2020 13:43:08 11/07/2021 text/html This patient returns [...] sleep apnea. 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
== END 2025-03-22 23:59 | disposition home or self-care (01) ==
LOC: RAD 14:45
PROVIDERS: PCP Family Medicine; Visit Provider Podiatrist
DX: M19.072 Primary osteoarthritis, left ankle and foot (principal); M19.071 Primary osteoarthritis, right ankle and foot
CPT/HCPCS: 73630

== ENCOUNTER 2025-03-25 08:07 | Outpatient (CLI) | payer MEDICAID, SELFPAY ==
--- OUTSIDE RECORDS SUMMARY | 2025-02-04 07:30 | XMS_ITS | Encounter Summary ---
[facility] Address [address] [place] [address] Care Team Providers Care Esol Instructor Name Role Phone Surinder Rocha MD Primary Care Provider [phone] Reason for Referral * Physical Therapy (Routine) - Closed Specialty Diagnoses / Procedures Referred By Contac t Referred To Contact Physical Therapy Diagnoses Poor balance Procedures OR OFFICE/OUTPATIENT NEW MODERATE MDM 45 MINUTES Surinder Rocha MD [address] [place] [address] Phone: tel: fax: [facility] [address] [place] [address] Phone: tel: fax: Referral ID Status Reason Start Date Expiration Date V isits Requested Visits Authorized [id number] Closed Specialty Services Required 02/04/2025 05/06/2026 1 1 Reason for Visit * Reason Comments Foot Injury 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 Encounter Details Date Type Department Care Team (Late st Contact Info) Description 02/04/2025 8:30 AM EDT Office Visit [facility] [address] [place] [address] Surinder Rocha MD [address] [place] [address] Fall in home, initial encounter (Primary Dx); Right foot pain; Left foot pain; Acute URI; Chronic idiopathic constipation; Poor balance Social History Tobacco Use Types Packs/Day Years [...] Sign Reading Time Taken Comments Blood Pressure 138/72 02/04/2025 8:12 AM EDT Pulse 87 02/04/2025 8:12 AM EDT Temperature 36.3 C (97.3 F) 02/04/2025 8:12 AM EDT Respiratory Rate - - Oxygen Saturation 97% 02/04/2025 8:12 AM EDT Inhaled Oxygen Concentration - - Weight 123 kg (272 lb) 02/04/2025 8:12 AM EDT Height 170.2 cm (5' 7 ) 02/04/2025 8:12 AM EDT Body Mass Index 42.6 02/04/2025 8:12 AM EDT documented in this encounter Progress Notes * Surinder Rocha MD - 02/04/2025 8:30 AM EDT Subjective Cielo Chase is a 59 y.o. female. Foot Injury She fell 2 weeks ago Has had B fot pain since that time Pain left fifth toe Then pain midfoot R foot She does note that her balance is worse Just feels unsteady and feels like this is getting worse She has also had a lot of sinus congestion Some SOA noted Cough is worse at night She continues to have constipation Tried linzess but this did not help much She woujld like to try trulance The following portions of the patient's history were reviewed and updated as appropriate: allergies, current medications, past family history, past medical history, past social history, past surgicalhistory, and problem list. Review of Systems Constitutional: Negative for fever. HENT: Positive for congestion and sore throat. Respiratory: Positive for cough. Cardiovascular: Positive for leg swelling. Musculoskeletal: Positive for gait problem. Neurological: Positive for headaches. Objective Physical Exam Vitals and nursing note reviewed. Constitutional: General: She is not in acute distress. Appearance: Normal appearance. She is well-developed. Cardiovascular: Rate and Rhythm: Normal rate and regular rhythm. Heart sounds: Normal heart sounds. Pulmonary: Effort: Pulmonary effort is normal. Breath sounds: Normal breath sounds. Musculoskeletal: Feet: Neurological: Mental Status: She is alert and oriented to person, place, and time. Psychiatric: Mood and Affect: Mood normal. Behavior: Behavior normal. Thought Content: Thought content normal. Judgment: Judgment normal. Assessment & Plan Diagnoses and all orders for this visit: 1. Fall in home, initial encounter (Primary) 2. Right foot pain - XR Foot 3+ View Left; Future 3. Left foot pain - XR Foot 3+ View Right; Future 4. Acute URI - Chlorcyclizine-Pseudoephed 25-60 MG tablet; 1/2-1 po q 8 hours PRN Dispense: 30 tablet; Refill: 1 5. Chronic idiopathic constipation - Plecanatide (Trulance) 3 MG tablet; Take 1 tablet by mouth Daily. Dispense: 30 tablet; Refill: 3 6. Poor balance - Ambulatory Referral to Physical Therapy for Evaluation & Treatment Other orders - promethazine-dextromethorphan (PROMETHAZINE-DM) 6.25-15 MG/5ML syrup; Take 5 mL by mouth 4 (Four)Times a Day As Needed for Cough. Dispense: 240 mL; Refill: 0 Will check XR of both feet. Will wear wlkaing boot on R foot and pineda tape left toe. F/u pending images She has been more congested, will use stahist and she will call back INB Constipation has been worse, failed linzess, miralax, and colace. Will try trulance and see if insurance will cover this Her balance has been worse as well, will work on PTY to help improve gait and stability Ok PRN phenergan cough medicine for cough documented in this encounter Plan of Treatment Upcoming Encounters Date Type Department Care Team (Late st Contact Info) Description 03/30/2025 8:45 AM EST Office Visit [facility] [address] [facility] [address] Surinder Rocha MD [address] [place] [place] [address] 08/25/2025 8:30 AM EDT [facility] [address] [place] [phone] documented as of this encounter Visit Diagnoses Diagnosis Fall in home, initial encounter- Primary Right foot pain Pain in soft tissues of limb Left foot pain Pain in soft tissues of limb Acute URI Acute upper respiratory infections of unspecified site Chronic idiopathic constipation Unspecified constipation Poor balance documented in this encounter Additional Health Concerns Assessment Noted Time PHQ-2 Depression Total Score: 1 05/20/19 24 12:36 PM EST documented as of this encounter Care Teams Esol Instructor Relationship Specialty Start Date End Date Surinder Rocha MD [address] [place] [address] PCP - General Family Medicine 10/05/19 documented as of this encounter
--- OUTSIDE RECORDS SUMMARY | 2025-02-04 08:00 | XMS_ITS | Encounter Summary ---
[facility] Address [address] [place] [address] Care Team Providers Care Hse Manager Name Role Phone Surinder Rocha MD Primary Care Provider [phone] Reason for Referral * Diagnostic Imaging (Routine) - Closed Specialty Diagnoses / Procedures Referred By Contac t Referred To Contact Radiology Diagnoses Right foot pain Left foot pain Procedures XR foot 3+ vw bilateral Surinder Rocha MD [address] [place] [address] Phone: tel: fax: Referral ID Status Reason Start Date Expiration Date Visits Re quested Visits Authorized Closed 02/04/2025 05/06/2026 1 1 Reason for Visit * Diagnostic Imaging (Routine) - Closed Specialty Diagnoses / Procedures Referred By Contac t Referred To Contact Radiology Diagnoses Right foot pain Left foot pain Procedures XR foot 3+ vw bilateral Surinder Rocha MD [address] [place] [address] Phone: tel: fax: Referral ID Status Reason Start Date Expiration Date Visits Re quested Visits Authorized Closed 02/04/2025 05/06/2026 1 1 Encounter Details Date Type Department Care Team (Latest Contact Info) Description 02/04/2025 9:00 AM EDT - 02/04/2025 11:59 PM EDT Hospital Encounter [facility] [address] [place] [address] Surinder Rocha MD [address] [place] [address] Right foot pain; Left foot pain Discharge Disposition: Home or Self Care Social History Tobacco Use Types Packs/Day Years [...] or training? Not on file Preferred Language Tunisian 08/18/2023 PHQ-2 Answer Date Recorded Patient Health Questionnaire-2 Score 1 09/08/2024 Comments No Sex and Gender Information Value Date Recorded Sex Assigned at Female 11/13/2023 11:14 AM EDT Legal Sex Female 1:16 PM EDT Gender Identity Female 11/13/2023 11:14 AM EDT Sexual Orientation Straight 11/13/2023 11 :14 AM EDT documented as of this encounter Medications at Time of Discharge albuterol (PROVENTIL) (2.5 MG/3ML) 0.083% nebulizer solution Take by nebulization. 07/31/2024 amitriptyline (ELAVIL) 50 MG tabletIndications:F ibromyalgia Take 1 tablet by mouth every night at bedtime. 180 tablet 2 11/15/2024 azelastine (ASTELIN) 0.1 % nasal spray Administer 2 sprays into the nostril(s) as directed by provider 2 (Two) Times a Day. 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 30 tablet 5 11/15/2024 busPIRone (BUSPAR) 30 MG tabletIndications:A djustment disorder with anxious mood,Generalized anxiety disorder Take 1 tablet by mouth 2 (Two) Times a Day. 180 tablet 1 11/15/2024 Diclofenac Sodium 3 % gel gel APPLY 1 INCH TO AFFECTED AREA FOUR TIMES DAILY 05/21/2024 escitalopram (LEXAPRO) 20 MG tabletIndications:A djustment disorder with anxious mood TAKE 1 & 1/2 (ONE & ONE-HALF) TABLETS BY MOUTH ONCE DAILY 135 tablet 09/13/2024 famotidine (PEPCID) 40 MG tabletIndications:G astroesophageal reflux disease, unspecified whether esophagitis present Take 1 tablet by mouth every night at bedtime. 90 tablet 1 11/15/2024 furosemide (Lasix) 40 MG tabletIndications:B ilateral lower extremity edema 1 PO QAM PRN 30 tablet 04/14/2024 gabapentin (NEURONTIN) 100 MG capsuleIndications: Idiopathic peripheral neuropathy,Bilatera l leg pain 1 PO QAM 30 capsule 5 11/15/2024 gabapentin (NEURONTIN) 300 MG capsuleIndications: Idiopathic peripheral neuropathy Take 1 capsule by mouth 3 (Three) Times a Day. 270 capsule 1 11/15/2024 levocetirizine (XYZAL) 5 MG tablet Take 1 tablet by mouth Every Evening. 06/29/2022 lidocaine (LIDODERM) 5 % USE 1 PATCH EXTERNALLY EVERY 12 HOURS. WEAR FOR 12 HOURS AND THEN OFF FOR 12 HOURS 90 patch 03/22/2024 pantoprazole (Protonix) 40 MG EC tabletIndications:G astroesophageal reflux disease, unspecified whether esophagitis present Take 1 tablet by mouth 2 (Two) Times a Day. 180 tablet 1 10/01/2024 Plecanatide (Trulance) 3 MG tabletIndications:C hronic idiopathic constipation Take 1 tablet by mouth Daily. 30 tablet 3 02/04/2025 valACYclovir (Valtrex) 1000 MG tabletIndications:H SV infection Take 1 tablet by mouth Daily. 90 tablet 1 07/14/2024 Xiidra 5 % ophthalmic solution PLACE 1 DROP IN EACH EYE TWICE A DAY 04/07/2024 zolpidem (AMBIEN) 10 MG tabletIndications:I nsomnia, unspecified type Take 1 tablet by mouth At Night As Needed for Sleep. 90 tablet 1 10/01/2024 albuterol sulfate HFA 108 (90 Base) MCG/ACT inhalerIndications: Moderate persistent asthma with exacerbation 1-2 puffs q 4-6 hours PRN 18 g 1 11/16/2024 5 Chlorcyclizine-Pseu doephed 25-60 MG tabletIndications:A cute URI 1/2-1 po q 8 hours PRN 30 tablet 1 02/04/2025 5 fluticasone (FLONASE) 50 MCG/ACT nasal sprayIndications:Se asonal allergic rhinitis, unspecified trigger Administer 2 sprays into the nostril(s) as directed by provider Daily. 11 g 5 11/16/2024 5 Fluticasone-Salmete rol (ADVAIR/WIXELA) 100-50 MCG/ACT DISKUSIndications:M oderate persistent asthma with exacerbation INHALE 1 DOSE BY MOUTH TWICE DAILY 60 each 11/30/2024 5 levothyroxine (SYNTHROID, LEVOTHROID) 125 MCG tabletIndications:A cquired hypothyroidism Take 1 tablet by mouth Daily. 90 tablet 09/24/2024 5 montelukast (SINGULAIR) 10 MG tabletIndications:M oderate persistent asthma with exacerbation Take 1 tablet by mouth Every Night. 90 tablet 09/24/2024 5 promethazine-dextro methorphan (PROMETHAZINE-DM) 6.25-15 MG/5ML syrup Take 5 mL by mouth 4 (Four) Times a Day As Needed for Cough. 240 mL 02/04/2025 5 pseudoephedrine (SUDAFED) 120 MG 12 hr tablet 1 PO BID PRN congestion 60 tablet 3 12/03/2023 5 documented as of this encounter Plan of Treatment Upcoming Encounters Date Type Department Care Team (Late st Contact Info) Description 03/30/2025 8:45 AM EST Office Visit [facility] [address] [place] [address] Surinder Rocha MD [address] [place] [address] 08/25/2025 8:30 AM EDT Appointment [place] [phone] documented as of this encounter Procedures Procedure Name Priority Date/Time Associated Diagnosis Comments XR FOOT 3+ VW BILATERAL Routine 02/04/2025 9:23 AM EDT Right foot pain Left foot pain documented in this encounter Results * XR Foot 3+ View Bilateral (02/04/2025 9:23 AM EDT) Anatomical Region Laterality Modality Lower Extremities, Foot Bilateral [facility] 02/09/2025 11:2 6 AM EDT Impressions 02/09/2025 11:30 AM EDT Impression: 1. No acute osseous findings. 2. No signs of crystalline or inflammatory arthropathy. 3. 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 4. Achilles and plantar spurs bilaterally. Electronically Signed: Oscar Hare MD 02/09/2025 11:30 AM EDT Workstation ID: [id number] Narrative 02/09/2025 11:30 AM EDT XR FOOT 3+ VW BILATERAL Date of Exam: 02/04/2025 9:15 AM EDT Indication: pain. Comparison: None available. Findings: No visualized displaced fracture or joint malalignment. Typical distribution degenerative osteoarthritis overall mild to moderate severity involving the first MTP joints and mid feet. Negative for marginal erosions, chondrocalcinosis or periarticular osteopenia. Bilateral os naviculare. Bilateral os peroneum. Bilateral Achilles and plantar spurs. Soft tissues radiographically unremarkable. Procedure Note Oscar Hare MD - 02/09/2025 XR FOOT 3+ VW BILATERAL Date of Exam: 02/04/2025 9:15 AM EDT Indication: pain. Comparison: None available. Findings: No visualized displaced fracture or joint malalignment. Typicaldistribution degenerative osteoarthritis overall mild to moderate severityinvolving the first MTP joints and mid feet. Negative for marginalerosions, chondrocalcinosis or periarticular osteopenia. Bilateral os naviculare. Bilateral os peroneum. BilateralAchilles and plantar spurs. Soft tissues radiographically unremarkable. IMPRESSION: Impression: 1. No acute osseous findings. 2. No signs of crystalline or inflammatory arthropathy. 3. Mild to moderate degenerative osteoarthritis of the mid feet and firstMTP joints. 4. Achilles and plantar spurs bilaterally. Electronically Signed: Oscar Hare MD 02/09/2025 11:30 AM EDT Workstation ID: [id number] us Surinder Rocha MD IMG DIAGNOSTIC IMAGING ORDERABL ES Final Result documented in this encounter Visit Diagnoses Diagnosis Right foot pain Pain in soft tissues of limb Left foot pain Pain in soft tissues of limb documented in this encounter Additional Health Concerns Assessment Noted Time PHQ-2 Depression Total Score: 1 05/20/19 24 12:36 PM EST documented as of this encounter Care Teams Hse Manager Relationship Specialty Start Date End Date Surinder Rocha MD [address] [place] [id number] PCP - General Family Medicine 10/05/19 documented as of this encounter
--- OUTSIDE RECORDS SUMMARY | 2025-02-08 06:55 | XMS_ITS | Encounter Summary ---
[facility] [address] [place] [address] Care Team Providers Care Sound Printer Name Role Phone Surinder Rocha MD Primary Care Provider [phone] Reason for Referral * Diagnostic Imaging (Routine) - Closed Specialty Diagnoses / Procedures Referred By Ezio harden Referred To Contact Radiology Diagnoses Abnormal mammogram Procedures Mammo Diagnostic Digital Tomosynthesis Bilateral With CAD Surinder Rocha MD [address] [place] [address] Phone: tel: fax: [facility] [address] [place] [address] Phone: tel: Referral ID Status Reason Start Date Expiration Date Visits Re quested Visits Authorized [id number] Closed 11/26/2024 02/25/2026 1 1 Reason for Visit * Diagnostic Imaging (Routine) - Closed Specialty Diagnoses / Procedures Referred By Contlen t Referred To Contact Radiology Diagnoses Abnormal mammogram Procedures Mammo Diagnostic Digital Tomosynthesis Bilateral With CAD Surinder Rocha MD [address] [place] [address] Phone: tel: fax: [facility] [place] [address] Phone: tel: Referral ID Status Reason Start Date Expiration Date Visits Re quested Visits Authorized [id number] Closed 11/26/2024 02/25/2026 1 1 Encounter Details Date Type Department Care Team (Latest Contact Info) Description 02/08/2025 7:55 AM EDT - 02/08/2025 11:59 PM EDT Hospital Encounter [facility] [place] [address] [place] [address] Abnormal mammogram Discharge Disposition: Home or Self Care Social [...] or training? Not on file Preferred Language Indonesian 08/18/2023 PHQ-2 Answer Date Recorded Patient Health [...] 1 tablet by mouth Every Evening. 06/29/2022 levothyroxine (SYNTHROID, LEVOTHROID) 125 MCG tabletIndications:A cquired hypothyroidism Take 1 tablet by mouth once daily 90 tablet 02/08/2025 lidocaine (LIDODERM) 5 % USE 1 PATCH [...] oderate persistent asthma with exacerbation INHALE 1 PUFF BY MOUTH TWICE DAILY 60 each 02/08/2025 montelukast (SINGULAIR) 10 MG tabletIndications:M oderate persistent [...] Description 03/30/2025 8:45 AM EST Office Visit [facility] [address] [facility] [place] [address] Surinder Rocha MD [address] [facility] [address] [place], [place] [id number] 08/25/2025 8:30 AM EDT Appointment [facility] [address] [place], [place] [id number] documented as of this encounter Procedures Procedure Name Priority Date/Time Associated Diagnosis Comments MAMMO DIAGNOSTIC DIGITAL TOMOSYNTHESIS BILATERAL W CAD Routine 02/08/2025 10:54 AM EDT Abnormal mammogram documented in this encounter Results * (ABNORMAL) Mammo Diagnostic Digital Tomosynthesis Bilateral With CAD (02/08/2025 10:54 AM EDT) Anatomical Region Laterality Modality Breast Bilateral Mammography 02/08/2025 3:16 PM EDT Impressions 02/08/2025 3:55 PM EDT 1. Stable stable probably benign asymmetry being followed in the right lateral breast that likely correlates to a stable oval mass being followed in the right 9:00 periareolar region with ultrasound imaging. These findings are stable compared to prior breast imaging studies dated 12/03/2023 and 11/19/2023. 2. Bilateral axillary lymphadenopathy. The patient reports receiving an upper extremity flu vaccination within the last 3 months. She does not remember the laterality. RECOMMENDATION: 1. Ultrasound-guided biopsy of an axillary lymph node to include flow cytometry. 2. Short-interval bilateral mammographic follow-up in 6 months will be recommended if the axillary biopsy proves benign. BI-RADS CATEGORY: 4, SUSPICIOUS. CAD was utilized. The standard false-negative rate of mammography is between 10% and 25%. Complex patterns or increased breast density will markedly elevate the false-negative rate of mammography. A letter, in lay terminology, with the results of this exam was given to the patient at the time of the visit. PHYSICIAN ORDER: ULTRASOUND GUIDED BREAST BIOPSY DIAGNOSIS: ABNORMAL ULTRASOUND FINDING 02/08/2025 3:[address] Nallely Handley MD on Narrative 02/08/2025 3:55 PM EDT BILATERAL DIAGNOSTIC MAMMOGRAM, RIGHT BREAST ULTRASOUND, AND BILATERAL AXILLARY ULTRASOUND HISTORY: 59-year-old patient who presents for short interval right mammographic and ultrasound follow-up recommended on 12/03/2023. This is the patient's first mammogram since that recommendation. She is currently due for bilateral mammographic imaging. The patient has no personal history of breast cancer and no current breast complaints. Her mother was diagnosed with breast cancer and ovarian cancer. A maternal aunt was diagnosed with breast cancer. The patient did not report a family history of breast cancer or ovarian cancer on her current Tyrer-Cuzick risk assessment questionnaire. The estimated lifetime risk for developing breast cancer is incorrect. The patient has gained 21 pound since her prior mammogram. She reports receiving an influenza vaccination in an upper extremity within the last 3 months. She does not remember the laterality. TECHNIQUE: Bilateral low dose, full field digital CC and MLO views were obtained with tomosynthesis. Left CC focal compression, MLO focal compression, and ML views were also obtained with tomosynthesis. Focused ultrasound imaging was performed of the bilateral axillary regions and the right 9:00 periareolar region. COMPARISON: 12/03/2023, 11/19/2023, 01/24/2021, 12/20/2020, 04/07/2019, 04/01/2018 FINDINGS: There are scattered areas of fibroglandular density. RIGHT BREAST The fibroglandular pattern is stable. There is a stable asymmetry being followed in the anterior aspect of the lateral breast. This finding is stable compared to prior 2023 mammographic imaging. There are no suspicious masses, worrisome calcifications, or areas of architectural distortion. Right axillary lymph nodes appear increased in size and density. Focused ultrasound imaging will be performed for further evaluation. Focused ultrasound imaging of the right 9:00 periareolar region demonstrates no significant change in the 1.3 cm mixed isoechoic and hypoechoic oval mass placed into short interval follow-up on 12/03/2023. Focused ultrasound imaging of the right axilla demonstrates a 1.2 cm lymph node with an increased cortical thickness of 0.5 cm. There are multiple other right axillary lymph nodes that are sonographically unremarkable. LEFT BREAST The fibroglandular pattern is stable. A focal asymmetry in the upper outer quadrant effaced with additional mammographic imaging. The residual tissue in this location is stable. There are no suspicious masses, worrisome calcifications, or areas of architectural distortion. There are dense axillary lymph nodes that appear increased in prominence compared to prior studies. Focused ultrasound imaging of the left axilla demonstrates a 2.2 cm lymph node with eccentric cortical thickening measuring approximately 0.5 cm. There are few other lymph nodes with mild cortical thickening measuring 0.4 cm. us Surinder Rocha MD IMG MAMMOGRAPHY ORDERABLES Patience l Result documented in this encounter Visit Diagnoses Diagnosis Abnormal mammogram Abnormal mammogram, unspecified documented in this encounter Additional Health Concerns Assessment Noted Time PHQ-2 Depression Total Score: 1 05/20/19 24 12:36 PM EST documented as of this encounter Care Teams Sound Printer Relationship Specialty Start Date End Date Surinder Rocha MD [address] [place] [id number] PCP - General Family Medicine 10/05/19 documented as of this encounter
--- OUTSIDE RECORDS SUMMARY | 2025-02-08 09:51 | XMS_ITS | Encounter Summary ---
[facility] [address] [place] [address] Care Team Providers Care Manager Sign Name Role Phone Surinder Rocha MD Primary Care Provider [phone] Reason for Referral * Diagnostic Imaging (Routine) - Closed Specialty Diagnoses / Procedures Referred By Ezio t Referred To Contact Radiology Diagnoses Abnormal mammogram Procedures US Breast Bilateral Limited Surinder Rocha MD [address] [place] [address] Phone: tel: fax: [facility] [address] [place] [address] Phone: tel: Referral ID Status Reason Start Date Expiration Date Visits Re quested Visits Authorized [id number] Closed 02/08/2025 05/10/2026 1 1 Reason for Visit * Diagnostic Imaging (Routine) - Closed Specialty Diagnoses / Procedures Referred By Contac t Referred To Contact Radiology Diagnoses Abnormal mammogram Procedures US Breast Bilateral Limited Surinder Rocha MD [address] [place] [address] Phone: tel: fax: [facility] [place] [address] Phone: tel: Referral ID Status Reason Start Date Expiration Date Visits Re quested Visits Authorized [id number] Closed 02/08/2025 05/10/2026 1 1 Encounter Details Date Type Department Care Team (Latest Contact Info) Description 02/08/2025 10:51 AM EDT - 02/08/2025 11:59 PM EDT Hospital Encounter [facility] [place] [address] [place] [address] Abnormal mammogram Discharge Disposition: Home [...] or training? Not on file Preferred Language Mongolian 08/18/2023 PHQ-2 Answer Date Recorded Patient Health [...] BY MOUTH TWICE DAILY 60 each 02/08/2025 5 montelukast (SINGULAIR) 10 MG tabletIndications:M oderate [...] Description 03/30/2025 8:45 AM EST Office Visit [facility] [address] [facility] [place] [address] Surinder Rocha MD [address] [facility] [place] [address] 08/25/2025 8:30 AM EDT Appointment [facility] [address] [place] [address] documented as of this encounter Procedures Procedure Name Priority Date/Time Associated Diagnosis Comments US BREAST BILATERAL LIMITED Routine 02/08/2025 12:07 PM EDT Abnormal mammogram documented in this encounter Results * (ABNORMAL) US Breast Bilateral Limited (02/08/2025 12:07 PM EDT) Anatomical Region Laterality Modality Breast Bilateral Ultrasound 02/08/2025 3:16 PM EDT Impressions 02/08/2025 3:55 [...] mild cortical thickening measuring 0.4 cm. us Nallely Handley MD [facility] US ORDERABLES Final Result documented in this encounter Visit Diagnoses Diagnosis Abnormal mammogram Abnormal mammogram, unspecified documented in this encounter Additional Health Concerns Assessment Noted Time PHQ-2 Depression Total Score: 1 05/20/19 24 12:36 PM EST documented as of this encounter Care Teams Manager Sign Relationship Specialty Start Date End Date Surinder Rocha MD [address] [place] [address] PCP - General Family Medicine 10/05/19 documented as of this encounter
--- OUTSIDE RECORDS SUMMARY | 2025-02-22 09:45 | XMS_ITS | Encounter Summary ---
[facility] Address [address] [place] [address] Care Team Providers Care Laboratory Assistant Name Role Phone Surinder Rocha MD Primary Care Provider [phone] Reason for Visit * Reason Comments URI X 1 wk Urinary Tract Infection X 4 days ago Shortness of Breath Encounter Details Date Type Department Care Team (Late st Contact Info) Description 02/22/2025 10:45 AM EDT Office Visit [facility] [address] [place] [address] Surinder Rocha MD [address] [place], [place] [id number] Dysuria (Primary Dx); Acute non-recurrent maxillary sinusitis; Seasonal allergic rhinitis, unspecified trigger; Moderate persistent asthma with exacerbation Social History [...] Sign Reading Time Taken Comments Blood Pressure 134/80 02/22/2025 10:35 AM EDT Pulse 88 02/22/2025 10:35 AM EDT Temperature 37.1 C (98.7 F) 02/22/2025 10:35 AM EDT Respiratory Rate 20 02/22/2025 10:35 AM EDT Oxygen Saturation 95% 02/22/2025 10:35 AM EDT Inhaled Oxygen Concentration - - Weight 122 kg (268 lb) 02/22/2025 10:35 AM EDT Height 170.2 cm (5' 7 ) 02/22/2025 10:35 AM EDT Body Mass Index 41.97 02/22/2025 10:35 AM EDT documented in this encounter Progress Notes * Surinder Rocha MD - 02/22/2025 10:45 AM EDT Subjective Cielo Chase is a 59 y.o. female. History of Present Illness She has had more congestion and drainage the past week She has had incresse in urinary frequency No fevers, some body aches Was tired over the weekend Breathing has dimitri worse She is on the advair still This is helping but she needs more albuterol Flonase is helping her nasal contestion and allergies She does need refills of this as well The following portions of the patient's history were reviewed and updated as appropriate: allergies, current medications, past family history, past medical history, past social history, past surgicalhistory, and problem list. Review of Systems Objective Physical Exam Vitals and nursing note reviewed. Constitutional: Appearance: She is well-developed. HENT: Head: Normocephalic and atraumatic. Right Ear: Hearing, tympanic membrane, ear canal and external ear normal. Left Ear: Hearing, tympanic membrane, ear canal and external ear normal. Nose: Right Sinus: Maxillary sinus tenderness present. Left Sinus: Maxillary sinus tenderness present. Mouth/Throat: Pharynx: Uvula midline. Eyes: Conjunctiva/sclera: Conjunctivae normal. Cardiovascular: Rate and Rhythm: Normal rate and regular rhythm. Heart sounds: Normal heart sounds. Pulmonary: Effort: Pulmonary effort is normal. Breath sounds: Normal breath sounds. Abdominal: General: Abdomen is flat. Bowel sounds are normal. There is no distension. Palpations: Abdomen is soft. Tenderness: There is no abdominal tenderness. There is no guarding or rebound. Musculoskeletal: Cervical back: Normal range of motion. Lymphadenopathy: Cervical: No cervical adenopathy. Psychiatric: Behavior: Behavior normal. Assessment & Plan Diagnoses and all orders for this visit: 1. Dysuria (Primary) - POCT urinalysis dipstick, automated - Urine Culture - Urine, Urine, Clean Catch 2. Acute non-recurrent maxillary sinusitis - amoxicillin-clavulanate (Augmentin ES-600) 600-42.9 MG/5ML suspension; 7.5 mL PO BID Dispense: 105 mL; Refill: 0 - prednisoLONE ODT (Orapred ODT) 15 MG disintegrating tablet; Place 2 tablets on the tongue Daily. Dispense: 10 tablet; Refill: 0 3. Seasonal allergic rhinitis, unspecified trigger - fluticasone (FLONASE) 50 MCG/ACT nasal spray; Administer 2 sprays into the nostril(s) as directedby provider Daily. Dispense: 11 g; Refill: 5 4. Moderate persistent asthma with exacerbation - albuterol sulfate HFA 108 (90 Base) MCG/ACT inhaler; 1-2 puffs q 4-6 hours PRN Dispense: 18 g; Refill: 1 Check urine cultrue and f/u pending results Will use liquid amox and steroids for sinus infection and this should treat any urinary infection Continue flonase for allertgies, she has run out Ok PRN albuteorl for her breathing that is worse, will continue advair [facility] documented in this encounter Plan of Treatment Upcoming Encounters Date Type Department Care Team (Late st Contact Info) Description 03/30/2025 8:45 AM EST Office Visit [facility] [address] [place] [address] Surinder Rocha MD [address] [place] [address] 08/25/2025 8:30 AM EDT Appointment [facility] [address] [id number] documented as of this encounter Procedures Procedure Name Priority Date/Time Associated Diagnosis Comments URINE CULTURE Routine 02/22/2025 10:53 AM EDT Dysuria POCT URINALYSIS DIPSTICK, AUTOMATED Routine 02/22/2025 10:42 AM EDT Dysuria documented in this encounter Results * Urine Culture - Urine, Urine, Clean Catch (02/22/2025 10:53 AM EDT) Urine Culture Final report [facility] Result 1 Comment [facility] Comment: Mixed urogenital cely Less than 10,000 colonies/mL Urine Urine specimen obtained by clean catch procedure / Unknown 02/22/2025 10:53 AM EDT 02/22/2025 Comment:UC Narrative [facility]) - 02/24/2025 3:07 AM EDT Performed at: - [facility] [address] [place], [place] [id number] Stenciler: Vernon Garcia PhD, Phone: [phone] Surinder Rocha MD MICROBIOLOGY - GENERAL ORDERABL ES Final Result Performing Organization Address City/[facility]/ZIP Co de Phone Number [facility] [address] [place] [address], [place] [phone] [facility] [address] [place] [address], [place] [phone] * POCT urinalysis dipstick, automated (02/22/2025 10:42 AM EDT) Color Yellow Yellow, Straw, Dark Yellow, Kaila [facility] Clarity, UA Clear Clear [facility] Specific [place] 1.010 1.005 - 1.030 [facility] pH, Urine 6.0 5.0 - 8.0 [facility] Leukocytes Negative Negative [facility] Nitrite, UA Negative Negative [facility] Protein, POC Negative Negative mg/dL [facility] Glucose, UA Negative Negative mg/dL [facility] Ketones, UA Negative Negative [facility] Urobilinogen, UA Normal Normal, 0.2 E.U./dL [facility] Bilirubin Negative Negative [facility] Blood, UA Negative Negative [facility] Lot Number [id number] [facility] Expiration Date 05-27-2026 [facility] Urine 02/22/2025 10:4 2 AM EDT Surinder Rocha MD POINT OF CARE TEST ORDERABLES F inal Result [facility]
[address] [place] [address], documented in this encounter Visit Diagnoses Diagnosis Dysuria- Primary Acute non-recurrent maxillary sinusitis Seasonal allergic rhinitis, unspecified trigger Moderate persistent asthma with exacerbation Unspecified asthma, with exacerbation documented in this encounter Additional Health Concerns Assessment Noted Time PHQ-2 Depression Total Score: 1 05/20/19 24 12:36 PM EST documented as of this encounter Care Teams Laboratory Assistant Relationship Specialty Start Date End Date Surinder Rocha MD [address] [place], [place] [id number] PCP - General Family Medicine 10/05/19 documented as of this encounter
--- OUTSIDE RECORDS SUMMARY | 2025-02-23 08:21 | XMS_ITS | Encounter Summary ---
[facility] Address [address] [place] [address] Care Team Providers Care County Home Demonstrator Name Role Phone Surinder Rocha MD Primary Care Provider [phone] Reason for Visit * Diagnostic Imaging (Routine) - Pending Review Specialty Diagnoses / Procedures Referred By Contac t Referred To Contact Radiology Diagnoses Abnormal mammogram Procedures US Fine Needle Aspiration BX 1st Lesion US Fine Needle Aspiration BX 1ST Lesion Surinder Rocha MD [address] [place] [address] Phone: tel: fax: [facility] [address] [place] [address] Phone: tel: Referral ID Status Reason Start Date Expiration Date V isits Requested Visits Authorized [id number] Pending Review 02/08/2025 05/10/2026 1 1 Encounter Details Date Type Department Care Team (Latest Contact Info) Description 02/23/2025 9:21 AM EDT - 02/23/2025 11:59 PM EDT Hospital Encounter [facility] [address] 17[address] [facility] [address] [place] [address] Abnormal mammogram Discharge Disposition: Home [...] or training? Not on file Preferred Language Bruneian 08/18/2023 PHQ-2 Answer Date Recorded Patient Health [...] ONCE DAILY AT NIGHT 90 tablet 02/22/2025 pantoprazole (Protonix) 40 MG EC tabletIndications:G astroesophageal [...] BY MOUTH TWICE DAILY 60 each 02/08/2025 prednisoLONE ODT (Orapred ODT) 15 MG disintegrating tabletIndications:A cute non-recurrent maxillary sinusitis Place 2 tablets on the tongue Daily. 10 tablet 02/22/2025 5 documented as of this encounter Plan of Treatment Upcoming Encounters Date Type Department Care Team (Late st Contact Info) Description 03/30/2025 8:45 AM EST Office Visit [facility] [address] [place] [address] Surinder Rocha MD [address] [place], [place] [id number] 08/25/2025 8:30 AM EDT Appointment [facility] [address] [place] [id number] documented as of this encounter Procedures Procedure Name Priority Date/Time Associated Diagnosis Comments US FINE NEEDLE ASPIRATION BX 1ST LESION Routine 02/23/2025 11:04 AM EDT Abnormal mammogram NON-STAFF SOFTWARE ENGINEER CYTOLOGY, [facility] (PETRA, COR, MAD, MAAME) [...] during this procedure. us Nallely Handley MD [facility] [place] ORDERABLES Edited Resul t - Final * NON-STAFF SOFTWARE ENGINEER CYTOLOGY, [facility] (PETRA,COR,MAD,MAAME) (02/23/2025 10:43 AM [...] CD19, CD20, CD38, CD45, CD56, CD57, CD123, [place], and Lambda. Interpretation performed by Dr. Lin. [...] 10:43 AM EDT 02/23/2025 11:42 AM EDT Nallely Handley MD PATHOLOGY/CYTOLOGY ORDERABLES Final Result [facility]
[address] [place] [address], documented in this encounter Visit Diagnoses Diagnosis [...] documented as of this encounter Care Teams County Home Demonstrator Relationship Specialty Start Date End Date Surinder Rocha MD [address] [place], [place] [id number] PCP - General Family Medicine 10/05/19 documented as of this encounter
--- OUTSIDE RECORDS SUMMARY | 2025-02-23 08:26 | XMS_ITS | Encounter Summary ---
[facility] [address] [place] [address] Care Team Providers Care Extract Wringer Name Role Phone Surinder Rohca MD Primary Care Provider [phone] Reason for Referral * Diagnostic Imaging (Routine) - Pending Review Specialty Diagnoses / Procedures Referred By Contac t Referred To Contact Radiology Diagnoses Abnormal mammogram Procedures Mammo Post Device Placement Right Nallely Handley MD [address] [place] [address] Phone: tel: fax: Referral ID Status Reason Start Date Expiration Date V isits Requested Visits Authorized [id number] Pending Review 02/23/2025 05/25/2026 1 1 Reason for Visit * Diagnostic Imaging (Routine) - Pending Review Specialty Diagnoses / Procedures Referred By Contlen harden Referred To Contact Radiology Diagnoses Abnormal mammogram Procedures Mammo Post Device Placement Right Nallely Handley MD [address] [address] Phone: tel: fax: Referral ID Status Reason Start Date Expiration Date V isits Requested Visits Authorized [id number] Pending Review 02/23/2025 05/25/2026 1 1 Encounter Details Date Type Department Care Team (Latest Contact Info) Description 02/23/2025 9:26 AM EDT - 02/23/2025 11:59 PM EDT Hospital Encounter [facility] [address] [place] [address] Abnormal mammogram Discharge Disposition: Home or Self [...] or training? Not on file Preferred Language Gabonese 08/18/2023 PHQ-2 Answer Date Recorded Patient Health [...] BY MOUTH TWICE DAILY 60 each 02/08/2025 11/03/202 5 prednisoLONE ODT (Orapred ODT) 15 MG disintegrating tabletIndications:A cute non-recurrent maxillary sinusitis Place 2 tablets on the tongue Daily. 10 tablet 02/22/2025 5 documented as of this encounter Plan of Treatment Upcoming Encounters Date Type Department Care Team (Late st Contact Info) Description 03/30/2025 8:45 AM EST Office Visit [facility] [address] [place] [address] Surinder Rocha MD [address] [place] [address] 08/25/2025 8:30 AM EDT Appointment [facility] [address] [place] [address] documented as of this encounter Procedures Procedure Name Priority Date/Time Associated Diagnosis Comments MAMMO POST DEVICE PLACEMENT RIGHT Routine 02/23/2025 11:03 AM EDT Abnormal mammogram documented in this encounter Results * Mammo Post Device Placement Right (02/23/2025 11:03 AM EDT) Anatomical Region Laterality Modality Breast Right Mammography 02/23/2025 12:1 8 PM EDT Addenda Addendum [...] during this procedure. us Nallely Handley MD [facility] MAMMOGRAPHY ORDERABLES Bijan vicente Result - Final documented in this encounter Visit Diagnoses Diagnosis Abnormal mammogram Abnormal mammogram, unspecified documented in this encounter Additional Health Concerns Assessment Noted Time PHQ-2 Depression Total Score: 1 05/20/19 24 12:36 PM EST documented as of this encounter Care Teams Extract Wringer Relationship Specialty Start Date End Date [place] [address] PCP - General Family Medicine 10/05/19 documented as of this encounter
--- OUTSIDE RECORDS SUMMARY | 2025-03-09 12:00 | XMS_ITS | Encounter Summary ---
[facility] Address [address] [place] [address] Care Team Providers Care Parcel Wrapper Name Role Phone Surinder Rocha MD Primary Care Provider [phone] Reason for Referral * Medical Care (Routine) - Authorized Specialty Diagnoses / Procedures Referred By Contac t Referred To Contact Diagnoses Observed sleep apnea Procedures Home Sleep Study Surinder Rocha MD [address] [facility] [place] [address] Phone: tel: fax: [facility] [address] [place] [address] Phone: tel: fax: Referral ID Status Reason Start Date Expiration Date V isits Requested Visits Authorized [id number] Authorized 03/09/2025 06/08/2026 1 1 Reason for Visit * Reason Comments Hospital Follow Up Visit [facility] 03/03/25, H EART CATHRECORDS REQUESTED 03/03, no call made Encounter Details Date Type Department Care Team ([facility] Contact Info) Description 03/09/2025 12:00 PM EST Office Visit [facility] [address] [place] [address] Surinder Rocha MD [address] [place] [address] Coronary artery disease of [place] artery of [place] heart with stable angina pectoris (Primary Dx); [...] or training? Not on file Preferred Language Burundian 08/18/2023 PHQ-2 Answer Date Recorded Patient Health [...] some atypical chest pains Went to [facility] ER and was admittred Had cath without [...] this visit: 1. Coronary artery disease of [place] artery of [place] heart with stable angina pectoris (Primary) 2. [...] 8:45 AM EST Office Visit [facility] [address] [place] [address] Surinder Rocha MD [address] [place] [address] 08/25/2025 8:30 AM EDT Appointment [facility] [address] [place] [address] Scheduled Orders Name Type Priority Associated Diagnoses [...] coli(A) [facility] Comment: Cefazolin with an ERZA <=16 predicts susceptibility to the oral agents [...] 03/09/2025 11:36 AM EST 03/09/2025 Comment:ANNETTA Pal[facility] - 03/14/2025 3:07 AM EST Performed at: [address] [place] [id number] Machine Turner: Vernon Garcia PhD, Phone: [phone] us Surinder Rocha MD MICROBIOLOGY - GENERAL ORDERABL ES Final Result [facility] (AMBULATORY) [address] [place] [address], [facility] [address] [place] [address], * (ABNORMAL) POCT urinalysis dipstick, automated (03/09/2025 11:20 AM EST) Color Yellow Yellow, Straw, Dark Yellow, Kaila [facility] Clarity, UA Clear Clear [facility] Specific [place] 1.015 1.005 - 1.030 [facility] pH, Urine 6.0 5.0 - 8.0 [facility] Leukocytes Moderate (2+)(A) Negative [facility] Nitrite, UA Positive(A) Negative [facility] Protein, POC Negative Negative mg/dL [facility] Glucose, UA Negative Negative mg/dL [facility] Ketones, UA Negative Negative [facility] Urobilinogen, UA Normal Normal, 0.2 E.U./dL [facility] Bilirubin Negative Negative [facility] Blood, UA Trace(A) Negative [facility] Lot Number [id number] [facility] Expiration Date 05-27-2026 [facility] Urine 03/09/2025 11:2 0 AM EST us Surinder Rocha MD POINT OF CARE TEST ORDERABLES F inal Result [facility]
[address] [place] [address], documented in this encounter Visit Diagnoses Diagnosis Coronary artery disease of [place] artery of [place] heart with stable angina pectoris- Primary Dysuria Acute cystitis without hematuria Observed sleep apnea documented in this encounter Additional Health Concerns Assessment Noted Time PHQ-2 Depression Total Score: 1 05/20/19 24 12:36 PM EST documented as of this encounter Care Teams Parcel Wrapper Relationship Specialty Start Date End Date Surinder Rocha MD [address] [place] [address] PCP - General Family Medicine 10/05/19 documented as of this encounter
--- OUTSIDE RECORDS SUMMARY | 2025-03-25 08:13 | XMS_ITS | Encounter Summary ---
[facility] Address [address] [place] [address] Care Team Providers Care Chucker Name Role Phone Surinder Rocha MD Primary Care Provider [phone] Reason for Visit * Reason Onset Date Comments PHARMACY CALLS 03/01/2025 Encounter Details Date Type Department Care Team (Late st Contact Info) Description 03/01/2025 Telephone [facility] [address] [place] [address] Surinder Rocha MD [address] [place], [place] [id number] PHARMACY CALLS Social History Tobacco Use Types [...] or training? Not on file Preferred Language Faroese 08/18/2023 PHQ-2 Answer Date Recorded Patient Health [...] BID is fine! * Telephone Encounter - Fraida Fitzgerald RegSched Rep - 03/01/2025 9:31 AM EDT Pharmacy Name: [facility] - [place], [place] - [address] [phone] [facility] [phone] Pharmacy exhibit display representative name: [facility] Pharmacy exhibit display representative phone number: [phone] What medication are you calling in regards [...] Description 03/30/2025 8:45 AM EST Office Visit [facility] [address] [place] [address] Surinder Rocha MD [address] [place] [address] 08/25/2025 8:30 AM EDT Appointment [place] [phone] documented as of this encounter Visit Diagnoses Not on filedocumented in this encounter Additional Health Concerns Assessment Noted Time PHQ-2 Depression Total Score: 1 05/20/19 24 12:36 PM EST documented as of this encounter Care Teams Chucker Relationship Specialty Start Date End Date Surinder Rocha MD [address] [place] [address] PCP - General Family Medicine 10/05/19 documented as of this encounter
--- OUTSIDE RECORDS SUMMARY | 2025-03-25 08:13 | XMS_ITS | Encounter Summary ---
Author Organization [facility] yste Address [address] [place] [address] Care Team Providers Care Licensed Mass Real Estate Appraiser Name Role Phone Surinder Rocha MD Primary Care Provider [phone] Reason for Visit * Reason Comments Med Refill Encounter Details Date Type Department Care Team (Late st Contact Info) Description 02/22/2025 Refill [facility] [address] [place] [address] Jeanette Hooks, MAXX [address] [facility] [place] [address] Moderate persistent asthma with exacerbation Social History [...] or training? Not on file Preferred Language Malay 08/18/2023 PHQ-2 Answer Date Recorded Patient Health [...] Description 03/30/2025 8:45 AM EST Office Visit [facility] [address] [facility] [place] [address] Surinder Rocha MD [address] [place] [address] 08/25/2025 8:30 AM EDT Appointment [place] [phone] documented as of this encounter Visit Diagnoses Diagnosis Moderate persistent asthma with exacerbation Unspecified asthma, with exacerbation documented in this encounter Additional Health Concerns Assessment Noted Time PHQ-2 Depression Total Score: 1 05/20/19 24 12:36 PM EST documented as of this encounter Care Teams Licensed [employer] Real Estate Appraiser Relationship Specialty Start Date End Date Surinder Rocha MD [address] [place] [address] PCP - General Family Medicine 10/05/19 documented as of this encounter
--- OUTSIDE RECORDS SUMMARY | 2025-03-25 08:13 | XMS_ITS | Encounter Summary ---
[facility] [address] [place] [address] Care Team Providers Care Senior It Assistant Name Role Phone Surinder Rocha MD Primary Care Provider [phone] Encounter Details Date Type Department Care Team [...] or training? Not on file Preferred Language Kittitian 08/18/2023 PHQ-2 Answer Date Recorded Patient Health [...] [facility] [address] [place] [address] Surinder Rocha MD [address] [place] [address] 08/25/2025 8:30 AM EDT Appointment [place] [phone] documented as of this encounter Visit Diagnoses Not on filedocumented in this encounter Additional Health Concerns Assessment Noted Time PHQ-2 Depression Total Score: 1 05/20/19 24 12:36 PM EST documented as of this encounter Care Teams Senior It Assistant Relationship Specialty Start Date End Date Surinder Rocha MD [address] [place] [address] PCP - General Family Medicine 10/05/19 documented as of this encounter
--- OUTSIDE RECORDS SUMMARY | 2025-03-25 08:13 | XMS_ITS | Encounter Summary ---
Author Organization [facility] ystem Address [address] [place] [address] Care Team Providers Care Manager Inventory Management Name Role Phone Surinder Rocha MD Primary Care Provider [phone] Encounter Details Date Type Department Care Team (Late st Contact Info) Description 02/24/2025 Telephone [facility] [address] [address] Rosalba Irizarry RN Social History Tobacco Use [...] or training? Not on file Preferred Language Yoruba 08/18/2023 PHQ-2 Answer Date Recorded Patient Health [...] [facility] FAMILY MEDICINE [address] [place] [address] Surinder Rocha MD [address] [place] [place] [address] 08/25/2025 8:30 AM EDT Appointment [place] [address] [address] documented as of this encounter Visit Diagnoses Not on filedocumented in this encounter Additional Health Concerns Assessment Noted Time PHQ-2 Depression Total Score: 1 05/20/19 24 12:36 PM EST documented as of this encounter Care Teams Manager Inventory Management Relationship Specialty Start Date End Date Surinder Rocha MD [address] [place] [address] PCP - General Family Medicine 10/05/19 documented as of this encounter
--- OUTSIDE RECORDS SUMMARY | 2025-03-25 08:13 | XMS_ITS | Encounter Summary ---
[facility] Address [address] [place] [address] Care Team Providers Care Power Lineman Name Role Phone Surinder Smiley MD Primary Care Provider [phone] Reason for Visit * Reason Onset Date Comments Med Management 02/24/2025 Encounter Details Date Type Department Care Team (Late st Contact Info) Description 02/24/2025 Telephone [facility] FAMILY MEDICINE [address] [place] [address] Surinder Smiley MD [address] [place], [place] [phone] Med Management Social History Tobacco Use Types [...] or training? Not on file Preferred Language Icelandic 08/18/2023 PHQ-2 Answer Date Recorded Patient Health [...] 8:45 AM EST Office Visit [facility] [address] [place] [address] Surinder Smiley MD [address] [place], [place] [address] 08/25/2025 8:30 AM EDT Appointment [address] [address] documented as of this encounter Visit Diagnoses Not on filedocumented in this encounter Additional Health Concerns Assessment Noted Time PHQ-2 Depression Total Score: 1 05/20/19 24 12:36 PM EST documented as of this encounter Care Teams Power Lineman Relationship Specialty Start Date End Date Surinder Smiley MD [address] [place] [address] PCP - General Family Medicine 10/05/19 documented as of this encounter
--- OUTSIDE RECORDS SUMMARY | 2025-03-25 08:13 | XMS_ITS | Encounter Summary ---
Author Organization [facility] ystem Address [address] [place] [address] Care Team Providers Care Parts Counter Representative Name Role Phone Surinder Rocha MD Primary Care Provider [phone] Encounter Details Date Type Department Care Team (Late st Contact Info) Description 02/25/2025 Telephone [facility] [address] [address] Rosalba Irizarry RN Social History Tobacco Use [...] or training? Not on file Preferred Language Georgian 08/18/2023 PHQ-2 Answer Date Recorded Patient Health [...] support given, verbalized understanding. Patient transferred to [facility] scheduling per request to warren clarke recommended follow-up documented in this encounter Plan of Treatment Upcoming Encounters Date Type Department Care Team (Late st Contact Info) Description 03/30/2025 8:45 AM EST Office Visit [facility]ILY [facility]INE [address] [place] [address] Surinder Rocha MD [address] [place], [place] [address] 08/25/2025 8:30 AM EDT [address] [address] documented as of this encounter Visit Diagnoses Not on filedocumented in this encounter Additional Health Concerns Assessment Noted Time PHQ-2 Depression Total Score: 1 05/20/19 24 12:36 PM EST documented as of this encounter Care Teams Parts Counter Representative Relationship Specialty Start Date End Date Surinder Rocha MD [address] [place] [address] PCP - General Family Medicine 10/05/19 documented as of this encounter
--- OUTSIDE RECORDS SUMMARY | 2025-03-25 08:13 | XMS_ITS | Encounter Summary ---
Author Organization [facility] Address [address] [place] [address] Care Team Providers Care Corporate Ethics Officer Name Role Phone Surinder Rocha MD Primary Care Provider [phone] Reason for Visit * Reason Onset Date Comments New Med Request 02/25/2025 Encounter Details Date Type Department Care Team (Late st Contact Info) Description 02/25/2025 Telephone [facility] FAMILY MEDICINE [address] [place] [address] Surinder Rocha MD [address] [place], [place] [phone] New Med Request Social History Tobacco Use [...] [facility] - [address] [phone] [facility] [phone] Additional notes: PATIENT WAS PRESCRIBED THIS ANTIBIOTIC A LIQUID FORM, BUT IT IS VERY HARD ON HER STOMACH. PATIENT IS WANTING TO KNOW IF A PILL FORM CAN BE CALLED IN INSTEAD documented in this encounter Plan of Treatment Upcoming Encounters Date Type Department Care Team (Late st Contact Info) Description 03/30/2025 8:45 AM EST Office Visit [facility] FAMILY MEDICINE [address] [place] [address] Surinder Rocha MD [address] [place] [address] 08/25/2025 8:30 AM EDT Appointment [place] [id number] documented as of this encounter Visit Diagnoses Not on filedocumented in this encounter Additional Health Concerns Assessment Noted Time PHQ-2 Depression Total Score: 1 05/20/19 24 12:36 PM EST documented as of this encounter Care Teams Corporate Ethics Officer Relationship Specialty Start Date End Date Surinder Rocha MD [address] [place] [address] PCP - General Family Medicine 10/05/19 documented as of this encounter
--- OUTSIDE RECORDS SUMMARY | 2025-03-25 08:14 | XMS_ITS | Encounter Summary ---
[facility] Address [address] [place] [address] Care Team Providers Care Private Secretary Name Role Phone Surinder Rocha MD Primary Care Provider [phone] Reason for Visit * Reason Comments Med Refill Encounter Details Date Type Department Care Team (Late st Contact Info) Description 02/07/2025 Refill [facility] FAMILY MEDICINE [address] [place] [address] Jeanette Hooks, MAXX 210 [place] [address] Moderate persistent asthma with exacerbation; Acquired hypothyroidism [...] 03/30/2025 8:45 AM EST Office Visit [facility] FAMILY MEDICINE 210 [facility] [place] [address] Surinder Rocha MD [address] [place] [address] 08/25/2025 8:30 AM EDT Appointment [place] [id number] documented as of this encounter Visit Diagnoses Diagnosis Moderate persistent asthma with exacerbation Unspecified asthma, with exacerbation Acquired hypothyroidism Unspecified hypothyroidism documented in this encounter Additional Health Concerns Assessment Noted Time PHQ-2 Depression Total Score: 1 05/20/19 24 12:36 PM EST documented as of this encounter Care Teams Private Secretary Relationship Specialty Start Date End Date Surinder Rocha MD [address] [place] [address] PCP - General Family Medicine 10/05/19 documented as of this encounter
--- OUTSIDE RECORDS SUMMARY | 2025-03-25 08:14 | XMS_ITS | Encounter Summary ---
[facility] Address [address] [place] [address] Care Team Providers Care Steeple Jack Name Role Phone Surinder Rocha MD Primary Care Provider [phone] Encounter Details Date Type Department Care Team [...] or training? Not on file Preferred Language Grenadian 08/18/2023 PHQ-2 Answer Date Recorded Patient Health [...] Description 03/30/2025 8:45 AM EST Office Visit [facility] FAM[facility] MEDICINE [address] [place] [address] Surinder Rocha MD [address] [place] [address] 08/25/2025 8:30 AM EDT Appointment [place] [id number] documented as of this encounter Visit Diagnoses Not on filedocumented in this encounter Additional Health Concerns Assessment Noted Time PHQ-2 Depression Total Score: 1 05/20/19 24 12:36 PM EST documented as of this encounter Care Teams Steeple Jack Relationship Specialty Start Date End Date Surinder Rocha MD [address] [place] [address] PCP - General Family Medicine 10/05/19 documented as of this encounter
--- OUTSIDE RECORDS SUMMARY | 2025-03-25 08:14 | XMS_ITS | Encounter Summary ---
[facility] Address [address] [place] [address] Care Team Providers Care Uncrater Name Role Phone Surinder Rocha MD Primary Care Provider [phone] Encounter Details Date Type Department Care Team (Late st Contact Info) Description 09/09/2024 Results Follow-Up [facility] FAMILY MEDICINE [address] [place] [address] Surinder Rocha MD [address] [place], [place] [id number] Social History Tobacco Use Types Packs/Day Years [...] or training? Not on file Preferred Language Djiboutian 08/18/2023 PHQ-2 Answer Date Recorded Patient Health [...] [facility] FAMILY MEDICINE 210 [facility] [place] [address] Surinder Rocha MD [address] [place] [address] 08/25/2025 8:30 AM EDT Appointment [address] [address] documented as of this encounter Visit Diagnoses Not on filedocumented in this encounter Additional Health Concerns Assessment Noted Time PHQ-2 Depression Total Score: 1 05/20/19 24 12:36 PM EST documented as of this encounter Care Teams Uncrater Relationship Specialty Start Date End Date Surinder Rocha MD [address] [place] [address] PCP - General Family Medicine 10/05/19 documented as of this encounter
--- OUTSIDE RECORDS SUMMARY | 2025-03-25 08:14 | XMS_ITS | Encounter Summary ---
Author Organization [facility] yste Address [address] [place] [address] Care Team Providers Care Biometric Screener Name Role Phone Surinder Rocha MD Primary Care Provider [phone] Encounter Details Date Type Department Care Team (Late st Contact Info) Description 02/15/2025 Results Follow-Up [facility] CANCER RISK ASSESSMENT [address] [place] [address] Ca Levy Social History Tobacco [...] [facility] FAMILY MEDICINE [address] [place] [phone] Surinder Rocha MD [address] [address] 08/25/2025 8:30 AM EDT Appointment [facility] [address] [place] [id number] documented as of this encounter Visit Diagnoses Not on filedocumented in this encounter Additional Health Concerns Assessment Noted Time PHQ-2 Depression Total Score: 1 05/20/19 24 12:36 PM EST documented as of this encounter Care Teams Biometric Screener Relationship Specialty Start Date End Date Surinder Rocha MD 210 [place] [address] PCP - General Family Medicine 10/05/19 documented as of this encounter
--- OUTSIDE RECORDS SUMMARY | 2025-03-25 08:14 | XMS_ITS | Encounter Summary ---
Author Organization [facility] yste Address [address] [place] [address] Care Team Providers Care Program Support Clerk Name Role Phone Surinder Rocha MD Primary Care Provider [phone] Reason for Visit * Reason Comments Med Refill Encounter Details Date Type Department Care Team (Late st Contact Info) Description 03/05/2025 Refill [facility] FAMILY MEDICINE 210 [place] [address] Jeanette Hooks, MAXX 210 [facility] [place] [address] [place], [place] [phone] Moderate persistent asthma with exacerbation Social History [...] Description 03/30/2025 8:45 AM EST Office Visit [facility] 210 [facility] [place] [address] Surinder Rocha MD [address] [place] [address] 08/25/2025 8:30 AM EDT Appointment [place] [id number] documented as of this encounter Visit Diagnoses Diagnosis Moderate persistent asthma with exacerbation Unspecified asthma, with exacerbation documented in this encounter Additional Health Concerns Assessment Noted Time PHQ-2 Depression Total Score: 1 05/20/19 24 12:36 PM EST documented as of this encounter Care Teams Program Support Clerk Relationship Specialty Start Date End Date Surinder Rocha MD [address] [place] [address] PCP - General Family Medicine 10/05/19 documented as of this encounter
--- OUTSIDE RECORDS SUMMARY | 2025-03-25 08:14 | XMS_ITS | Encounter Summary ---
[facility] Address [address] [place] [address] Care Team Providers Care Court Worker Name Role Phone Surinder Rocha MD Primary Care Provider [phone] Reason for Visit * Reason Comments Med Refill Encounter Details Date Type Department Care Team (Late st Contact Info) Description 03/21/2025 Refill [facility] FAMILY MEDICINE 210 [place] [address] Taylor Tabor PA 210 [place] [address] Muscle spasm Social History Tobacco Use Types Packs/Day Years [...] or training? Not on file Preferred Language Upper Sorbian 08/18/2023 PHQ-2 Answer Date Recorded Patient Health [...] [facility] MEDICINE [address] [place] [phone] Surinder Rocha MD [address] [place] [address] 08/25/2025 8:30 AM EDT Appointment [address] [address] documented as of this encounter Visit Diagnoses Diagnosis Muscle spasm Spasm of muscle documented in this encounter Additional Health Concerns Assessment Noted Time PHQ-2 Depression Total Score: 1 05/20/19 24 12:36 PM EST documented as of this encounter Care Teams Court Worker Relationship Specialty Start Date End Date Surinder Rocha MD [address] [place] [address] PCP - General Family Medicine 10/05/19 documented as of this encounter
--- OUTSIDE RECORDS SUMMARY | 2025-03-25 08:14 | XMS_ITS | Encounter Summary ---
[facility] Address [address] [place] [address] Care Team Providers Care Manager Sound Name Role Phone Surinder Rocha MD Primary Care Provider [phone] Reason for Visit * Reason Onset Date Comments PAPERWORK 02/09/2025 Encounter Details Date Type Department Care Team (Late st Contact Info) Description 02/09/2025 Telephone [facility]ILY MEDICINE [address] [place] [address] Surinder Rocha MD [address] [place], [place] [phone] PAPERWORK Social History Tobacco Use Types Packs/Day [...] or training? Not on file Preferred Language Israeli 08/18/2023 PHQ-2 Answer Date Recorded Patient Health [...] Chase Relationship: Self Best call back number: [phone] What was the call regarding: REQUESTING A STATUS UPDATE ON THE PAPERWORK THAT WAS SENT OVER [facility] documented in this encounter Plan of Treatment Upcoming Encounters Date Type Department Care Team (Late st Contact Info) Description 03/30/2025 8:45 AM EST Office Visit [facility] FAMILY MEDICINE [address] [place] [address] Surinder Rocha MD [address] [place] [address] 08/25/2025 8:30 AM EDT Appointment [address] [place] [address] documented as of this encounter Visit Diagnoses Not on filedocumented in this encounter Additional Health Concerns Assessment Noted Time PHQ-2 Depression Total Score: 1 05/20/19 24 12:36 PM EST documented as of this encounter Care Teams Manager Sound Relationship Specialty Start Date End Date Surinder Rocha MD [address] [place] [address] PCP - General Family Medicine 10/05/19 documented as of this encounter
--- OUTSIDE RECORDS SUMMARY | 2025-03-25 08:14 | XMS_ITS | Encounter Summary ---
[facility] Address [address] [place] [address] Care Team Providers Care Facility Maintenance Technician Name Role Phone Surinder Rocha MD Primary Care Provider [phone] Encounter Details Date Type Department Care Team (Late st Contact Info) Description 11/25/2024 Results Follow-Up [facility] FAMILY MEDICINE [address] [place] [address] Surinder Rocha MD [address] [place], [place] [id number] Social History Tobacco Use Types Packs/Day Years [...] or training? Not on file Preferred Language Peruvian 08/18/2023 PHQ-2 Answer Date Recorded Patient Health [...] Description 03/30/2025 8:45 AM EST Office Visit [facility] FAMILY MEDICINE 210 [facility] [place] [address] Surinder Rocha MD [address] [place] [address] 08/25/2025 8:30 AM EDT Appointment [address] [address] documented as of this encounter Visit Diagnoses Not on filedocumented in this encounter Additional Health Concerns Assessment Noted Time PHQ-2 Depression Total Score: 1 05/20/19 24 12:36 PM EST documented as of this encounter Care Teams Facility Maintenance Technician Relationship Specialty Start Date End Date Surinder Rocha MD [address] [place] [address] PCP - General Family Medicine 10/05/19 documented as of this encounter
--- OUTSIDE RECORDS SUMMARY | 2025-03-25 08:14 | XMS_ITS | Encounter Summary ---
[facility] Address [address] [place] [address] Care Team Providers Care Piece Presser Name Role Phone Surinder Rocha MD Primary Care Provider [phone] Reason for Referral * Consultation (Routine) - Closed Specialty Diagnoses / Procedures Referred By Ezio harden Referred To Contact Podiatry Diagnoses Foot pain, bilateral Procedures [place] OFFICE/OUTPATIENT NEW MODERATE MDM 45 MINUTES Surinder Rocha MD [address] [place] [address] Phone: tel: fax: Phong Evonne Alina, DPM [address] [place] [address] [place] [address] Phone: tel: fax: Referral ID Status Reason Start Date Expiration Date V isits Requested Visits Authorized [id number] Closed Specialty Services Required 03/21/2025 06/20/2026 1 1 Reason for Visit * Reason Onset Date Comments Appointment 03/18/2025 Encounter Details Date Type Department Care Team (Late st Contact Info) Description 03/18/2025 Telephone [facility] FAMILY MEDICINE [address] [place] [place] [address] Surinder Rocha MD [address] [place] [address] [place] [address] Appointment Social History Tobacco Use Types Packs/Day Years [...] or training? Not on file Preferred Language German 08/18/2023 PHQ-2 Answer Date Recorded Patient Health [...] Telephone Encounter - Surinder Rocha MD - 03/21/2025 11:47 AM EST Referral placed * Telephone Encounter - Hannah Chung - 03/18/2025 11:47 AM ESTSummary: field manager referral Cielo would like to have a referral placed to see a field manager. She would like to go [facility]. documented in this encounter Plan of Treatment Upcoming Encounters Date Type Department Care Team (Late st Contact Info) Description 03/30/2025 8:45 AM EST Office Visit [facility] FAMILY MEDICINE [address] [place] [phone] Surinder Rocha MD [address] [place] [address] 08/25/2025 8:30 AM EDT Appointment [address] [phone] documented as of this encounter Visit Diagnoses Diagnosis Foot pain, bilateral- Primary documented in this encounter Additional Health Concerns Assessment Noted Time PHQ-2 Depression Total Score: 1 05/20/19 24 12:36 PM EST documented as of this encounter Care Teams Piece Presser Relationship Specialty Start Date End Date Surinder Rocha MD [address] [place] [address] PCP - General Family Medicine 10/05/19 documented as of this encounter
--- OUTSIDE RECORDS SUMMARY | 2025-03-25 08:14 | XMS_ITS | Encounter Summary ---
Author Organization [facility] Address [address] [place] [address] Care Team Providers Care Multiskill Operator Name Role Phone Surinder Rocha MD Primary Care Provider [phone] Encounter Details Date Type Department Care Team (Late st Contact Info) Description 03/14/2025 Results Follow-Up [facility] FAMILY MEDICINE [address] [place] [address] Surinder Rocha MD [address] [place], [place] [phone] Social History Tobacco Use Types Packs/Day Years [...] or training? Not on file Preferred Language Togolese 08/18/2023 PHQ-2 Answer Date Recorded Patient Health [...] Description 03/30/2025 8:45 AM EST Office Visit [facility] FAMILY MEDICINE 210 [facility] [place] [address] Surinder Rocha MD [address] [place] [address] 08/25/2025 8:30 AM EDT Appointment [address] [address] documented as of this encounter Visit Diagnoses Not on filedocumented in this encounter Additional Health Concerns Assessment Noted Time PHQ-2 Depression Total Score: 1 05/20/19 24 12:36 PM EST documented as of this encounter Care Teams Multiskill Operator Relationship Specialty Start Date End Date Surinder Rocha MD [address] [place] [address] PCP - General Family Medicine 10/05/19 documented as of this encounter
--- OUTSIDE RECORDS SUMMARY | 2025-03-25 08:14 | XMS_ITS | Encounter Summary ---
[facility] Address [address] [place] [address] Care Team Providers Care Group Sales Coordinator Name Role Phone Surinder Rocha MD Primary Care Provider [phone] Encounter Details Date Type Department Care Team [...] or training? Not on file Preferred Language Bahraini 08/18/2023 PHQ-2 Answer Date Recorded Patient Health [...] Description 03/30/2025 8:45 AM EST Office Visit [facility] FAMILY MEDICINE 210 [place] [address] Surinder Rocha MD 210 [place] [address] 08/25/2025 8:30 AM EDT Appointment [place] [phone] documented as of this encounter Visit Diagnoses Not on filedocumented in this encounter Additional Health Concerns Assessment Noted Time PHQ-2 Depression Total Score: 1 05/20/19 24 12:36 PM EST documented as of this encounter Care Teams Group Sales Coordinator Relationship Specialty Start Date End Date Surinder Rocha MD [address] [place] [address] PCP - General Family Medicine 10/05/19 documented as of this encounter
--- OUTSIDE RECORDS SUMMARY | 2025-03-25 08:14 | XMS_ITS | Encounter Summary ---
[facility] Address [address] [place] [address] Care Team Providers Care Truck Supervisor Name Role Phone Surinder Rocha MD Primary Care Provider [phone] Encounter Details Date Type Department Care Team (Late st Contact Info) Description 02/09/2025 Results Follow-Up [facility] FAMILY MEDICINE 210 [place] [address] Surinder Rocha MD [address] [place], [place] [phone] Social History Tobacco Use Types Packs/Day Years [...] Visit [facility] FAMILY MEDICINE 210 [facility] [place] [address] Surinder Rocha MD [address] [place] [address] 08/25/2025 8:30 AM EDT Appointment [address] [address] documented as of this encounter Visit Diagnoses Not on filedocumented in this encounter Additional Health Concerns Assessment Noted Time PHQ-2 Depression Total Score: 1 05/20/19 24 12:36 PM EST documented as of this encounter Care Teams Truck Supervisor Relationship Specialty Start Date End Date Surinder Rocha MD [address] [place] [address] PCP - General Family Medicine 10/05/19 documented as of this encounter
--- OUTSIDE RECORDS SUMMARY | 2025-03-25 08:14 | XMS_ITS | Clinical Summary ---
Author Organization [facility] Address [address] [facility] [address] [place] [address] Care Team Providers Care Water Quality Technician Name Role Phone Surinder Rocha MD [...] complete this topic Insurance ANTH Care Teams Water Quality Technician Relationship Specialty Start Date End Date Surinder Rocha MD [address] [place] [address] PCP - General Family Medicine 08/02/22
--- OUTSIDE RECORDS SUMMARY | 2025-03-25 08:15 | XMS_ITS | Encounter Summary ---
[facility] Address [address] [place] [address] Care Team Providers Care Collection Agent Name Role Phone Surinder Rocha MD Primary Care Provider [phone] Reason for Visit * Reason Comments Med Refill Encounter Details Date Type Department Care Team (Late st Contact Info) Description 07/13/2021 Refill [facility] [address] [place] [phone] Surinder Rocha MD [address] [place], [place] [id number] Gastroesophageal reflux disease, unspecified whether esophagitis present; [...] Description 03/30/2025 8:45 AM EST Office Visit [facility] [address] [place] [address] Surinder Rocha MD [address] [place] [address] 08/25/2025 8:30 AM EDT Appointment [address] [address] documented as of this encounter Visit Diagnoses Diagnosis Gastroesophageal reflux disease, unspecified whether esophagitis present Adjustment disorder with anxious mood Adjustment disorder with anxiety Idiopathic peripheral neuropathy Unspecified hereditary and idiopathic peripheral neuropathy Insomnia, unspecified type documented in this encounter Care Teams Collection Agent Relationship Specialty Start Date End Date Surinder Rocha MD [address] [place] [address] PCP - General Family Medicine 10/05/19 documented as of this encounter
--- OUTSIDE RECORDS SUMMARY | 2025-03-25 08:15 | XMS_ITS | Encounter Summary ---
[facility] Address [address] [place] [address] Care Team Providers Care Bow Tacker Name Role Phone Surinder Rocha MD Primary Care Provider [phone] Reason for Visit * Reason Onset Date Comments MEDICATION REQUEST 03/09/2025 Encounter Details Date Type Department Care Team (Late st Contact Info) Description 03/09/[address] [facility] [address] [place] [address] Surinder Rocha MD [address] [place], [place] [phone] MEDICATION REQUEST Social History Tobacco Use Types Packs/Day [...] or training? Not on file Preferred Language Ukrainian 08/18/2023 PHQ-2 Answer Date Recorded Patient Health Questionnaire-2 Score 1 09/08/2024 Comments No Sex and Gender Information Value Date Recorded Sex Assigned at Female 11/13/2023 11:14 AM EDT Legal Sex Female 1:16 PM EDT Gender Identity Female 11/13/2023 11:14 AM EDT Sexual Orientation Straight 11/13/2023 11 :14 AM EDT documented as of this encounter Miscellaneous Notes * Telephone Encounter - Jeanette Hooks PA-C - 03/10/2025 8:38 AM EST Pyridium sent to pharmacy. * Telephone Encounter - Farida Fitzgerald RegSched Rep - 03/09/2025 4:53 PM EST Caller: Cielo Chase Relationship: Self Best call back number: [phone] What medication are you requesting: PERDIUM What are your current symptoms: PAINFUL URINATION How long have you been experiencing symptoms: THREE DAYS Have you had these symptoms before: [x] Yes [] No Have you been treated for these symptoms before: [x] Yes [] No If a prescription is needed, what is your preferred pharmacy and phone number: [facility]- [place], [place] - [address] [phone] [facility] [phone] FX Additional notes: THE PATIENT STATES THAT SHE WAS SEEN TODAY 03/09/2025 FOR A UTI SHE WOULD LIKE TOKNOW IF THE DOCTOR WILL CALL IN PERIDUM FOR HER PLEASE CALL PATIENT TO LET HER KNOW IF THAT CAN BE DONE documented in this encounter Plan of Treatment Upcoming Encounters Date Type Department Care Team (Late st Contact Info) Description 03/30/2025 8:45 AM EST Office Visit [facility] [address] [place] [address] Surinder Rocha MD [address] [place] [address] 08/25/2025 8:30 AM EDT Appointment [place] [phone] documented as of this encounter Visit Diagnoses Not on filedocumented in this encounter Additional Health Concerns Assessment Noted Time PHQ-2 Depression Total Score: 1 05/20/19 24 12:36 PM EST documented as of this encounter Care Teams Bow Tacker Relationship Specialty Start Date End Date Surinder Rocha MD [address] [place] [address] PCP - General Family Medicine 10/05/19 documented as of this encounter
--- OUTSIDE RECORDS SUMMARY | 2025-03-25 08:15 | XMS_ITS | Encounter Summary ---
[facility] Address [address] [place] [address] Care Team Providers Care Research And Development Specialist Name Role Phone Surinder Rocha MD Primary Care Provider [phone] Encounter Details Date Type Department Care Team (Latest Contact Info) Description 03/09/2025 Travel Social History Tobacco Use Types Packs/Day [...] or training? Not on file Preferred Language Algerian 08/18/2023 PHQ-2 Answer Date Recorded Patient Health [...] 03/30/2025 8:45 AM EST Office Visit [facility] [address] [place] [address] Surinder Rocha MD [address] [place] [address] 08/25/2025 8:30 AM EDT Appointment [place] [phone] documented as of this encounter Visit Diagnoses Not on filedocumented in this encounter Additional Health Concerns Assessment Noted Time PHQ-2 Depression Total Score: 1 05/20/19 24 12:36 PM EST documented as of this encounter Care Teams Research And Development Specialist Relationship Specialty Start Date End Date Surinder Rocha MD [address] [place] [address] PCP - General Family Medicine 10/05/19 documented as of this encounter
--- OUTSIDE RECORDS SUMMARY | 2025-03-25 08:15 | XMS_ITS | Clinical Summary ---
[facility] Address [address] [place] [address] Care Team Providers Care Assembler [employer] Name Role Phone Surinder Rocha MD Primary Care Provider [phone] Allergies Active Allergy Reactions Criticality Noted Date [...] tablet by mouth Daily. 30 tablet 3 Active levothyroxine (SYNTHROID, LEVOTHROID) 125 MCG tabletIndications :Acquired hypothyroidism Take 1 tablet by mouth once daily 90 tablet Active fluticasone (FLONASE) 50 MCG/ACT nasal sprayIndications: Seasonal allergic rhinitis, unspecified trigger Administer 2 sprays into the nostril(s) as directed by provider Daily. 11 g 5 Active albuterol sulfate HFA 108 (90 Base) MCG/ACT inhalerIndication s:Moderate persistent asthma with exacerbation 1-2 puffs q 4-6 hours PRN 18 g 1 Active montelukast (SINGULAIR) 10 MG tabletIndications :Moderate persistent asthma with exacerbation TAKE 1 TABLET BY MOUTH ONCE DAILY AT NIGHT 90 tablet Active promethazine (PHENERGAN) 25 MG tablet 1/2-1 po q 6 hours PRN 20 tablet 1 Active Fluticasone-Salme terol (ADVAIR/WIXELA) 100-50 MCG/ACT DISKUSIndications :Moderate persistent asthma with exacerbation INHALE 1 DOSE BY MOUTH TWICE DAILY 60 each Active phenazopyridine (Pyridium) 100 MG tablet Take 1 tablet by mouth 3 (Three) Times a Day As Needed for Bladder Spasms. 30 tablet Active levoFLOXacin (LEVAQUIN) 500 MG tablet Take 1 tablet by mouth Daily. 5 tablet Active Fluticasone-Salme terol (ADVAIR/WIXELA) 100-50 MCG/ACT DISKUSIndications :Moderate persistent asthma with exacerbation INHALE 1 PUFF BY MOUTH TWICE DAILY 60 each 025 2024 Discontinued amoxicillin-clavu lanate (Augmentin ES-600) 600-42.9 MG/5ML suspensionIndicat ions:Acute non-recurrent maxillary sinusitis 7.5 mL PO BID 105 mL 025 2024 Discontinued prednisoLONE ODT (Orapred ODT) 15 MG disintegrating tabletIndications :Acute non-recurrent maxillary sinusitis Place 2 tablets on the tongue Daily. 10 tablet 025 2024 Discontinued(* Therapy completed) cefdinir (OMNICEF) 250 MG/5ML suspension Take 5 mL by mouth 2 (Two) Times a Day. 70 mL 025 2024 Discontinued(* Therapy completed) ciprofloxacin (Cipro) 500 MG tabletIndications :Acute cystitis without hematuria Take 1 tablet by mouth 2 (Two) Times a Day. 14 tablet 025 2024 Discontinued(C ost of medication) Hospital, Clinic, or Other Facility Administered Medication [...] the next regular appointment. Ventral hernia 08/17/2023 Autoantibody titer positive 04/21/2023 Spinal stenosis of lumbar region 12/24/2022 Cervical stenosis of spinal canal 12/24/2022 Mild intermittent asthma with acute exacerbation 09/15/2019 [...] 09/27/2015 020 Nausea and vomiting 09/27/2015 08/25/19 20 Bilateral sensorineural hearing loss 08/02/2015 11/02/2021 Encounters Date Type Department Care Team Description 03/21/2025 Refill [facility] MEDICINE [address] [place] [address] Taylor Tabor PA Muscle spasm 03/18/2025 Telephone [facility] MEDICINE [address] [place] [address] Surinder Rocha MD Appointment 03/14/2025 Results Follow-Up [facility] MEDICINE [address] [place] [place] [address] Surinder Rocha MD 03/09/2025 12:00 PM EST Office Visit [facility] [address] [place] [address] Surinder Rocha MD 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); Dysuria; Acute cystitis without hematuria; Observed sleep apnea 03/09/2025 Telephone [facility] MEDICINE [address] [place] [place] [address] Surinder Rocha MD MEDICATION REQUEST 03/09/2025 [facility] 210 [facility] [place] [address] Surinder Rocha MD Med Management 03/09/2025 Travel 03/05/2025 Refill [facility] [address] [place] [address] Jeanette Hooks PA-C Moderate persistent asthma with exacerbation 03/01/2025 [facility] 210 [facility] [place] [place] [address] Surinder Rocha MD PHARMACY CALLS 02/25/2025 [facility] 210 [facility] [place] [address] Surinder Rocha MD New Med Request 02/25/2025 [facility] [address] [address] Rosalba Irizarry, RN 02/24/2025 [facility] [address] [place] [address] Surinder Rocha MD Med Management 02/24/2025 [facility] [address] [address] Rosalba Irizarry, RN 02/23/2025 9:26 AM EDT - 02/23/2025 11:59 PM EDT Hospital Encounter [facility] [address] [facility] [address] [place] [address] Abnormal mammogram Discharge Disposition: Home or Self Care 02/23/2025 9:21 AM EDT - 02/23/2025 11:59 PM EDT Hospital Encounter [facility] [address]60 [facility]TR[facility] [address] [facility] [address] [place] [phone] Abnormal mammogram Discharge Disposition: Home or Self Care 02/22/2025 10:45 AM EDT Office Visit [facility] MEDICINE [address] [place] [address] Surinder Rocha MD Dysuria (Primary Dx); Acute non-recurrent maxillary sinusitis; Seasonal allergic rhinitis, unspecified trigger; Moderate persistent asthma with exacerbation 02/22/2025 Refill [facility] MEDICINE [address] [place] [address] Jeanette Hooks, MAXX Moderate persistent asthma with exacerbation 02/22/2025 Travel 02/15/2025 Results Follow-Up [facility] CANCER RISK ASSESSMENT [address] [place] [phone] Ca Levy 02/09/2025 Results Follow-Up [facility] [address] [place] [address] Surinder Rocha MD 02/09/2025 Telephone [facility] [address] [place] [address] Surinder Rocha MD PAPERWORK 02/08/2025 10:51 AM EDT - 02/08/2025 11:59 PM EDT Hospital Encounter [facility] [place] [address] [facility] [address] [place] [address] Abnormal mammogram Discharge Disposition: Home or Self Care 02/08/2025 7:55 AM EDT - 02/08/2025 11:59 PM EDT Hospital Encounter [facility]MOGRAPHY [place] [address] [facility] [address] [place] [address] Abnormal mammogram Discharge Disposition: Home or Self Care 02/08/2025 Travel 02/07/2025 Refill [facility] MEDICINE [address] [place] [address] Jeanette Hooks PA-C Moderate persistent asthma with exacerbation; Acquired hypothyroidism 02/04/2025 9:00 AM EDT - 02/04/2025 11:59 PM EDT Hospital Encounter [facility] [place] [address] [place] [address] Surinder Rocha MD Right foot pain; Left foot pain Discharge Disposition: Home or Self Care 02/04/2025 8:30 AM EDT Office Visit [facility] [address] [place] [address] Surinder Rocha MD Fall in home, initial encounter (Primary Dx); Right foot pain; Left foot pain; Acute URI; Chronic idiopathic constipation; Poor balance 02/04/2025 Travel from Last 3 Months Immunizations Immunization Administration Dates Next Due Arexvy (RSV, Adults 60+ yrs) 02/07/2025 COVID-19 (MODERNA) 1st,2nd,3 rd Dose Monovalent 04/24/2021,06/16/2020,05/19/2020 Flu Vaccine Intradermal Quad 18-64YR 01/18/2023 Flu Vaccine Quad PF >36MO 12/30/2020,01/04/2020, 01/27/2018 Flu Vaccine Split Quad 12/30/2020,2019,01/23/2019,2017 Fluzone >6mos 01/10/2017 Fluzone (or Fluarix & Flulav al for VFC) >6mos 01/14/2022,12/30/2020,01/06/2020,2018,01/27/2018 Fluzone Quad >6mos (Multi-dose) 01/04/2020 Hepatitis A 02/26/2018,08/22/2017 Hepatitis B 03/22/2017,10/24/2016,09/20/2016 Hepatitis B Adult/Adolescent IM 03/22/2017,10/24,09/20/2016 Influenza recombinant 02/07/2025,12/06/2023 Influenza, Unspecified 12/06/2023 Pneumococcal Conjugate 20-Va lent (PCV20) 10/09/2021 Shingrix 09/27/2017,07/29/2017 Tdap 01/10/2025,04/09/2016 Family History Medical History Relation Name Comments [...] Mass Index 41.82 03/09/2025 10:59 AM EST Plan of Treatment Upcoming Encounters Date Type Department Care Team (Late st Contact Info) Description 03/30/2025 8:45 AM EST [facility] [address] [place] [address] Surinder Rocha MD [address] [place] [address] 08/25/2025 8:30 AM EDT Appointment [address] [address] Health Maintenance Due Date Last Done Comments Annual Gynecologic Pelvic an d Breast Exam 1964 COLOGUARD 2009 COLON CANCER SCREENING 5 YEA R SIGMOIDOSCOPY [address] COLONOGRAPHY 2009 FECAL OCCULT BLOOD TEST 2009 FIT Testing (1 year) 2009 ANNUAL PHYSICAL 09/27/2015 LIPID PANEL 04/07/2025 04/07/2024, 02/0 11/2023, 07/31/2022, Additional history exists MAMMOGRAM 02/23/2027 02/23/2025, 10/0 11/2024, 12/03/2023, Additional history exists COLONOSCOPY 03/31/2033 03/31/2023, 03/06, [...] Name Priority Date/Time Associated Diagnosis Comments SCANNED - IMAGING 03/22/2025 SCANNED - IMAGING 03/22/2025 URINE CULTURE Routine 03/09/2025 11:36 AM EST Acute cystitis without hematuria POCT URINALYSIS DIPSTICK, AUTOMATED Routine 03/09/2025 11:20 AM EST Dysuria SCANNED EKG 03/02/2025 SCANNED - LABS 03/02/2025 SCANNED - IMAGING 03/02/2025 SCANNED - IMAGING 03/02/2025 SCANNED EKG 03/01/2025 SCANNED - LABS 03/01/2025 SCANNED - LABS 03/01/2025 SCANNED - LABS 03/01/2025 SCANNED - IMAGING 03/01/2025 SCANNED - IMAGING 03/01/2025 SCANNED - LABS 02/24/2025 US FINE NEEDLE ASPIRATION BX 1ST LESION Routine 02/23/2025 11:04 AM EDT Abnormal mammogram MAMMO POST DEVICE PLACEMENT RIGHT Routine 02/23/2025 11:03 AM EDT Abnormal mammogram NON-PROCESS CONTROLS TECHNICIAN CYTOLOGY, [facility] (PETRA, COR, MAD, MAAME) [...] Recently Relevant to Health Maintenance Results * IMAGING SCANNED (03/22/2025) Only the most recent of6 resultswithin the time period is included. Anatomical Region Laterality Modality Radiographic Yanira ging Surinder Rocha MD IMG DIAGNOSTIC IMAGING ORDERABL ES Final Result * (ABNORMAL) Urine Culture - Urine, Urine, Clean Catch (03/09/2025 11:36 AM EST) Only the most recent of2 resultswithin the time period is included. Urine Culture Final report(A) [facility] Result [...] 11:36 AM EST 03/09/2025 Comment:ANNETTA Palomo [facility] (AMBULATORY) - 03/14/2025 3:07 AM EST Performed at: - [address] [id number] Clinical Program Consultant: Vernon Garcia PhD, Phone: [phone] Surinder Rocha MD MICROBIOLOGY - GENERAL ORDERABL ES Final Result [facility] (AMBULATORY) [address] [place] [address], [facility] [address] [place] [address], * (ABNORMAL) POCT urinalysis dipstick, automated (03/09/2025 11:20 AM EST) Only the most recent of2 resultswithin the time period is included. Color Yellow Yellow, Straw, Dark Yellow, Kaila [facility] Clarity, UA Clear Clear [facility] Specific [place] 1.015 1.005 - 1.030 [facility] pH, Urine 6.0 5.0 - 8.0 [facility] Leukocytes Moderate (2+)(A) Negative [facility] Nitrite, UA Positive(A) Negative [facility] Protein, POC Negative Negative mg/dL [facility] Glucose, UA Negative Negative mg/dL [facility] Ketones, UA Negative Negative [facility] Urobilinogen, UA Normal Normal, 0.2 E.U./dL [facility] Bilirubin Negative Negative [facility] Blood, UA Trace(A) Negative [facility] Lot Number [id number] [facility] Expiration Date 05-27-2026 [facility] Urine 03/09/2025 11:2 0 AM EST us Surinder Rocha MD POINT OF CARE TEST ORDERABLES F inal Result [facility]
[address] [place] [id number], * ECG Scan (03/02/2025) Only the most recent of2 resultswithin the time period is included. us Surinder Rocha MD ECG ORDERABLES Final Result * LABS SCANNED (03/02/2025) Only the most recent of5 resultswithin the time period is included. us [...] during this procedure. us Nallely Handley MD [facility] US ORDERABLES Edited Resul t - Final * Mammo Post Device Placement Right (02/23/2025 [...] during this procedure. us Nallely Handley MD IM MAMMOGRAPHY ORDERABLES Bijan vicente Result - Final * NON-PROCESS CONTROLS TECHNICIAN CYTOLOGY, [facility] (PETRA,COR,MAD,MAAME) (02/23/2025 10:43 AM EDT) Pathologist [facility] Reference Lab Report FINAL FNA REPORT -- [...] CD19, CD20, CD38, CD45, CD56, CD57, CD123, [place], and [place]. Interpretation performed by Dr. Lin. [...] Result [facility]
[address] [place] [address], [place] [phone] * (ABNORMAL) [facility] GENETIC RISK ASSESSMENT QUESTIONNAIRE - , (02/15/2025 9:55 AM EDT) Rupal 13.4 [facility] [employer] NCCN NCCN met(A) [facility] Comment:High Risk Cancer Ris k Assessment 02/15/2025 9:55 AM EDT us Surinder Rocha MD GENETIC TESTING Final Result Performing Organization Address [facility]/ZIP Co de Phone Number [facility] [employer]
[address] [place] [address], [place] [phone] * (ABNORMAL) US Breast Bilateral Limited (02/08/2025 [...] measuring 0.4 cm. us Nallely Handley MD IMG US ORDERABLES Final Result * (ABNORMAL) Mammo [...] Laterality Modality Lower Extremities, Foot Bilateral [facility] 02/09/2025 11:2 6 AM EDT Impressions 02/09/2025 11:30 AM EDT Impression: 1. No acute osseous findings. 2. No signs of crystalline or inflammatory arthropathy. 3. 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 4. Achilles and plantar spurs bilaterally. Electronically Signed: Oscar Hare MD 02/09/2025 11:30 AM EDT Workstation ID: [id number] Narrative 02/09/2025 11:30 AM EDT XR FOOT [...] MD 02/09/2025 11:30 AM EDT Workstation ID: [id number] Surinder Rocha MD IM DIAGNOSTIC IMAGING ORDERABL ES Final Result * [...] 10:4 3 AM EST 04/07/2024 Narrative [facility] (AMBULATORY) - 2024 3:09 AM EST Performed at: [address] [place] [id number] Clinical Program Consultant: Forrest Box MD, Phone: [phone] Patient Fasting: Y Surinder Rocha MD LAB BLOOD ORDERABLES Final Resu lt [facility] [address] [place] [address], [facility] [address] [place] [id number], * IMAGING SCANNED (12/06/2023) [facility] CH[facility] TABS Final Re sult * SCANNED - COLONOSCOPY (03/31/2023) us Surinder [...] with a HCV Nucleic Acid Amplification test (003889). Blood 04/14/2019 10:4 8 AM EST 04/14/2019 Narrative [facility] (AMBULATORY) - 04/17/2019 7:08 AM EST Performed at: 02 [facility] [address] [facility], [place] [id number] Clinical Program Consultant: Vernon Garcia PhD, Phone: [phone] us Surinder Rocha MD LAB BLOOD ORDERABLES Final Resu lt [facility] ([facility]UL[facility]ORY) [address] [place] [address], [place] [phone] [facility] [address] [place] [address], from Last 3 Months or Most Recently [...] Of Support Discussed With: Patient Care Teams Assembler [employer] Relationship Specialty Start Date End Date Surinder Rocha MD [address] [place] [address] PCP - General Family Medicine 10/05/19
--- OUTSIDE RECORDS SUMMARY | 2025-03-25 08:15 | XMS_ITS | Encounter Summary ---
[facility] Address [address] [place] [address] Care Team Providers Care Bag Bleacher Name Role Phone Surinder Rocha MD Primary Care Provider [phone] Reason for Visit * Reason Comments Med Refill Encounter Details Date Type Department Care Team (Late st Contact Info) Description 10/07/2019 Refill [facility] MED[facility] [address] [place] [address] Surinder Rocha MD [address] [place], [place] [phone] Complicated migraine Social History Tobacco Use Types [...] Description 03/30/2025 8:45 AM EST Office Visit [facility] [address] [place] [address] Surinder Rocha MD [address] [place] [address] 08/25/2025 8:30 AM EDT Appointment [address] [address] documented as of this [...] documented as of this encounter Care Teams Bag Bleacher Relationship Specialty Start Date End Date Surinder Rocha MD [address] [place] [address] PCP - General Family Medicine 10/05/19 documented as of this encounter
--- OUTSIDE RECORDS SUMMARY | 2025-03-25 08:15 | XMS_ITS | Data Portability ---
Author Organization [facility] CHRYSTAL Pfeiffer [place] [facility] Address [address] [place] [address] Care Team Providers Care Manager Rail Name Role Phone BALJIT DAVID Primary Care Provider [phone] Assessment No assessment recorded. Plan of Treatment Reminders Order Date Submit Date Provider Last Modified By Organization Details Last Modified Time Details Appointments None recorded. Lab None recorded. Referral None recorded. Procedures None recorded. Surgeries None recorded. Imaging None recorded. Medication Orders betametha sone valerate 0.1 % topical ointment 2021 022 [facility] [place], [address], 2 12:06:15 Compound Premarin Nasal [place] 2019 020 INTERFACE [employer], [address], [place], [address], 0 13:46:10 meclizine 25 mg chewable tablet 2019 020 INTERFACE [facility] [address] [place], [address], 0 13:43:15 Pepcid 20 mg tablet 2018 019 [email or web address] [facility] [address] [place], [address], 9 09:40:43 Bactrim DS 800 mg-160 mg tablet 2018 019 INTERFACE [facility] [address] [place], [address], 9 08:44:50 Xyzal 5 mg tablet 2018 019 INTERFACE [facility] [address] [place], [address], 9 08:44:46 Patient TargetsNo targets recorded. Patient Instructions Encounter Date Encounter Id Patient Instructions Last Modified By Organization Details Last Modified Time 03/15/2019 [id number] 1. Bactrim DS 800-160mg PO BID for [...] two with Dr. Liang for continued monitoring. [facility] Not available 03/15/2019 09:01:36 04/07/2019 [id number] 1. Laryngoscopy performed ; clinical photos obtained. [...] follow-up. [email or web address] Not available 04/07/2019 08:52:06 04/20/2020 [id number] dizziness: care instructions [email or web address] Not available 04/20/2020 [...] follow-up. mckay Not available 04/20/2020 13:33:31 04/20/2020 [id number] dizziness: care instructions lexy Not available 04/20/2020 13:16:46 hearing loss: ca re instructions lexy Not available 04/20/2020 13:16:47 11/07/2021 [id number] It was a dante van seeing this [...] scan of sinuses. Recheck 3-4 months at [place] office We reviewed the pertinent anatomy and [...] ast No observ ation record ed. [email or web address] [facility] [address] [facility], [place], [address], 12/09/2023 16:26:50 Result Notes None recorded. Problems Name Problem SNOMED Code Status Onset Date Resolution Date Notes Provider Name and Address Organization Details Recorded Time Allergic rhinitis 60351310 Active 2015 From Automated Load;Provi rin: Tamar Liang;St atus: Active Not Available [facility] 6 05:46:04 Deviated nasal septum 203800733 Active 2015 From Automated Load;Provi rin: Tamar Liang;St atus: Active Not Available [facility] 6 05:46:04 Dizziness and giddiness 673668913 Active 2015 From Automated Load;Provi rin: Tamar Liang;St atus: Active Not Available [facility] 6 05:46:04 Sensorine ural hearing loss 98814679 Active 2015 Provider: Tamar Liang; atus: Active Not Available [facility] 6 05:46:04 Sensorine ural hearing loss of bilateral ears 932991502 Active 2015 From Automated Load;Provi rin: Tamar Liang; atus: Active Not Available [facility] 6 05:46:04 Chronic cystitis 46272635 Active 2015 From Automated Load;Provi rin: Gary Toro Jr;Sta tus: Active Not Available [facility] 6 05:46:04 Dysuria 14026177 Active 2015 From Automated Load;Provi rin: Gary Toro Jr;Sta tus: Active Not Available [facility] 6 05:46:04 Increased frequency of urination 402802127 Active 2015 From Automated Load;Provi rin: Gary Toro Jr;Sta tus: Active Not Available [facility] 6 05:46:04 Problem Notes None recorded. Procedures Surgical History Date Name Laterality Status Provider Name and Address Organization Details Recorded Time 11/08/19 22 Binocular Microscopy completed Janell Cavanaugh [facility] 11/07/2021 11:38:25 09/15/19 21 Binocular Microscopy cancelled DAKOTA CHOU MD [facility] [place], [address], [facility] 09/13/2020 17:05:00 09/15/19 21 Cerumen removal - Instruments, Unilateral cancelled DAKOTA CHOU MD [facility] [place], [address], [facility] 09/13/2020 17:05:00 04/20/20 20 Tympanogram completed UGO SURESH AUD [address] [place], [address], [facility] 04/20/2020 13:15:51 04/20/20 20 Audiogram completed UGO SURESH, AUD [address] [place], [address], [facility] 04/20/2020 13:15:49 04/20/20 20 [place] completed UGO SURESH, AUD [address] [place], [address], [facility] 04/20/2020 13:16:31 04/20/20 20 Binocular Microscopy completed DAKOTA CHOU MD [address] [place], [address], [facility] 04/20/2020 13:30:50 04/20/20 20 Cerumen removal - Instruments, Unilateral completed DAKOTA CHOU MD [address] [place], [address], [facility] 04/20/2020 13:30:12 04/07/20 19 Laryngoscopy Flex completed Loyda Nicolas [facility] 04/07/2019 08:45:25 03/05/20 19 Tympanogram completed UGO SURESH, AUD [address] [place], [address], [facility] 03/05/2019 15:18:06 03/05/20 19 Audiogram completed UGO SURESH, AUD [address] [place], [address], [facility] 03/05/2019 15:18:04 09/26/19 19 Ears/Nose/Throat Surgery completed Lidia Robison [facility] 03/05/2019 14:57:32 Joint Replacement completed Wanda Vega [facility] 08/06/2017 09:52:17 Other completed Wanda Vega [facility] 08/06/2017 09:52:47 [facility] 03/05[facility]2019 14:47:12 [facility] 03/05/2019 14:47:35 Imaging Results None recorded. Procedure Notes None recorded. Medical Equipment None Reported. Allergies Allergen ID Allergen Name Allergen Category Reaction Reaction Severity Criticality Documentation Date Start Date Code Code System Note Provider Name and Address Organization Details Recorded Time 887527 Cymbalta medicatio n Not available Not available Not available 03/28/20162013 09675 4 RxNorm Comme nt: Creat ed By: Butle r [place] e;Cre ated Date: 05/02 9:21: 34 AM; Not Available [facility] 6 12:43:11 192266 Lyrica medicatio n other Not available Not available 03/29/20162011 75708 1 RxNorm React ion: LANG LONGORIA ING; Comme nt: Creat ed By: Jerica Peoples sa;Cr eated Date: 2011 7:30: 01 AM; Not Available [facility] 6 04:38:16 [id number] latex environme nt,medica tion Not available Not available Not available 03/29/20162010 06325 91 RxNorm Comme nt: Creat ed By: Delfina Siddiqi is;Cr eated Date: 2010 12:00 :48 PM; Not Available [facility] 6 05:28:45 Medications Name Sig Start Date Stop Date Status Note LastModified by Organization Details LastModified Time binaxnow covid-19 ag card home test kit active Not Available Not Available Not Available eq sinus 12-hour 120mg tab TAKE 1 TABLET BY MOUTH TWICE DAILY NEEDED FOR CONGESTI ON active Not Available Not Available No t Available Compound Premarin Nasal [place] 25mg/30m l- 3 sprays in affected nostril [...] Not Available No t Available Fluarix Quad 4370-5916 (PF) 60 mcg (15 mcg x 4)/0.5 mL IM syringe 03/05 completed Not Available Not Available Not Available Shingrix (PF) 50 mcg/0.5 mL intramuscu lar suspension , kit 03/05 completed Not Available Not Available Not Available Fluzone Quad (PF) 60 mcg (15 mcg x 4)/0.5 mL IM syringe 03/15 completed Not Available Not Available Not Available Fluzone Quad 7925-7236 (PF) 60 mcg (15 mcg x 4)/0.5 [...] (BMI) Body height Body temperature Oxygen saturation Heart rate Systolic And Diastolic Provider Name and Address Organization Details Last Updated DateTime 2 242452. 12 g 42.6 kg/m2 170.18 cm 98.9 [degF] 98 % 88 /min 131/93 mm[Hg] [facility] 2 10:56:36 Date Recorded Body height Body mass index (BMI) Body weight Heart rate Oxygen saturation Body temperature Systolic And Diastolic Provider Name and Address Organization Details Last Updated DateTime 9 170.18 cm 0 kg/m2 4.54 g 98 /min 99 % 97.6 [degF] 132/84 mm[Hg] [facility] 9 08:06:05 Date Recorded Body height Body mass index (BMI) Body weight Body temperature Heart rate Systolic And Diastolic Provider Name and Address Organization Details Last Updated DateTime 9 170.18 cm 35.5 kg/m2 706286. 31 g 97.5 [degF] 90 /min 105/70 mm[Hg] Jayne Multani [facility] 9 08:00:42 Date Recorded Body height Body mass index (BMI) Body weight Body temperature Heart rate Oxygen saturation Systolic And Diastolic Provider Name and Address Organization Details Last Updated DateTime 0 170.18 cm 37 kg/m2 238722. 8 g 97.4 [degF] 86 /min 94 % 123/77 mm[Hg] Allison Fox [facility] 0 12:53:25 Social History Question Answer Notes LastModified by Organizat ion Details LastModified Time Tobacco Smoking Status Never [facility]oker [facility] 08/06/2017 09:51:59 How Much Tobacco Do You Chew? None [email or web address] Information not available 03/05/2019 What Was The Date Of Your Most Recent Tobacco Screening? 09/24/2017 Information n ot available 06/22/2019 How Much Tobacco Do You Smoke? No [email or web address] Information not available 03/05/2019 Sex: Unknown Functional Status Question Answer Note LastModified by Organizat ion Details LastModified Time What is your level of alcohol consumption? None [email or web address] Information not available 08/06/2017 Do you or have you ever used smokeless tobacco? Never used smokeless tobacco [email or web address] Information not available 03/05/2019 Mental Status None [...] ICD10 Code Diagnosis IMO Codes Diagnosis Note [id number] JAMISON FRANCIS MD [address] [address] 08/06/2017 09:35:10 08/06/2017 10:20:27 Keratoconjunctivitis sicca, not specified as Sj gren's 61009755 H16.223 she has ongoing worsening dry mouth and dry eyes along with chronic fatigue and arthralgia 's. has positive parotid enlargemen t. All these features raises concerns about Sjogren's syndrome. Discussed and labs obtained. If inconclusi ve , we will do the minor salivary gland biopsy Fibromyalgia M 79.7 chronic and symptomati c. she has typical tender points and somatic complaints . Needs to maintain the gabapentin 300 mg bid. Higher dose makes her sleepy. she is on penitentiary amitriptyl ine at bed time, 50 mg po qhs. This would make her dry also but we might need to change it to some other medication to help her sleep. [id number] JAMISON FRANCIS MD [facility] OGY [address] [address] 09/24/2017 08:35:13 09/24/2017 09:30:09 Keratoconjunctivitis sicca, not specified as Sj gren's 03008343 H16.223 Chronic and with negative studies. Normal RANDOLPH screen and negative anti SSA/ SSB abs. normal ESR. No need for further investigat ions at this point. Fibromyalgia M 79.7 chronic and symptomati c. she has typical tender points and somatic complaints . Has classic allodynia with central sensitizat ion pains. Needs to maintain the gabapentin 300 mg bid. Higher dose makes her sleepy. she is on termite treater amitriptyl ine at bed time, 50 mg po qhs. Low salt and no sugar diet is the way to go. Achilles tendinitis 1165 4001 M76.61 M76.62 she has rather severe bilateral chronic achilles tendinopat hy with posterior heel spurs. I would suggest to avoid steroid injections at the site due to risk for tendon rupture. Local care, PT and use of voltaren. [id number] TAMAR LIANG MD [place] [facility] [address] [place] [address] 03/05/2019 14:18:58 03/09/2019 08:17:22 Ear pressure sensation 267773160 H93.8X9 Eczema of external auditory canal 84383876 H60.549 - L>>R Nasal vestibulitis 32213 000 J34.89 - Bilaterall y R>>L Cellulitis of face 2001 L03.211 - Upper lip and nasal labial folds Sensorineu ral hearing loss of bilateral ears 874009467 H90.3 - Audiogram 03/05/19: Type A tymps bilaterall y. Right moderate to severe SNHL and Left moderate SNHL [id number] KRISTA DOMÍNGUEZ [place] ENT [facility] [address] [place] [address] 03/05/2019 15:07:29 03/05/2019 16:07:49 Sensorineural hearing loss of bilateral ears 025825746 H90.3 Bilateral earache 384692 003 H92.03 Bilateral tinnitus 71845 05375 102 H93.13 [id number] REGINO REYES APRN [place] ENT [facility] [address] [place] [address] 03/15/2019 08:00:06 03/17/2019 14:39:46 Eczema of external auditory canal 80834607 H60.543 - L>R - 03/15/19: EAC's and TM's clear Nasal vestibulitis 03361 000 J34.89 - Bilateral - slow improvemen t Cellulitis of face 2001 L03.211 - Upper lip and nasal labial folds - slow improvemen t - allergic vs viral vs staph Ear pressu re sensation 920128786 H93.8X3 - L>R Sensorineu ral hearing loss of bilateral ears 532652030 H90.3 - Audiogram 03/05/19: Type A tymps bilaterall y. Right moderate to severe SNHL and Left moderate SNHL Dysfunctio n of bilateral eustachian tubes 1182135722 378061 H69.93 Posterior rhinorrhea 758 09108 R09.82 - chronic PND - AR vs VMR On examina tion - macroglossia 350163243 K14.8 [id number] MD REJI FRANCO ENT [address] [place] [address] 04/07/2019 07:55:48 04/12/2019 09:57:05 Nasal vestibulitis 85978224 J34.89 - resolving Cellulitis of face 2001 L03.211 - Upper lip and nasal labial folds resolving Sensorineu ral hearing loss of bilateral ears 343317123 H90.3 - Audiogram 03/05/19: Type A tymps bilaterall y. Right moderate to severe SNHL and Left moderate SNHL Skin ulcer of nose 11013 3000 J34.0 Migraine 94794535 G43.90 9 Dysphagia 39769381 R13.1 0 Feeling of lump in throat 202994856 F45.8 Dysfunctio n of bilateral eustachian tubes 6873627342 330192 H69.93 Ear pressu re sensation 005192463 H93.8X9 Laryngopha ryngeal reflux 603266426 K21.9 Hiatal hernia 00656098 K 44.9 [id number] DAKOTA CHOU MD [place] ENT [facility] [address] [place] [address] 04/20/2020 12:45:41 04/20/2020 13:49:38 Nasal vestibulitis 15805834 J34.89 - resolving Cellulitis of face 2001 L03.211 - Upper lip and nasal labial folds resolving Sensorineu ral hearing loss of bilateral ears 992278410 H90.3 - Audiogram 03/05/19: Type A tymps bilaterall y. Right moderate to severe SNHL and Left moderate SNHL Skin ulcer of nose 90806 3000 J34.0 Migraine 56390786 G43.90 9 Dysphagia 96250240 R13.1 0 Feeling of lump in throat 092617067 F45.8 Dysfunctio n of bilateral eustachian tubes 4421242358 625008 H69.93 Ear pressu re sensation 579568270 H93.8X9 Laryngopha ryngeal reflux 205668501 K21.9 Hiatal hernia 25421382 K 44.9 Patulous e ustachian tube 12882485 H69.03 -SUSPECT BILATERAL, START PREMARIN NASAL SPRAY. Impacted c erumen of bilateral ears 3495255673 774174 H61.23 -CLEANED 04/20/20 Dizziness 418109023 R42 -04/20/20 DIOGENES HALLPIKES NORMAL. [id number] KRISTA DOMÍNGUEZ [facility] [address] [place] [address] 04/20/2020 13:02:07 04/20/2020 14:02:38 Sensorineural hearing loss of bilateral ears 282475270 H90.3 Bilateral tinnitus 06746 93684 102 H93.13 Dizziness and giddiness 107382997 R42 [id number] DAKOTA CHOU MD [place] ENT [address] [place] [address] 11/07/2021 10:50:36 11/07/2021 11:43:02 Sensorineural hearing loss of bilateral ears 123782188 H90.3 - Audiogram 03/05/19: Type A tymps bilaterall y. Right moderate to severe SNHL and Left moderate SNHL Dysfunctio n of bilateral eustachian tubes 9599469371 453854 H69.93 Eczema of external auditory canal 43340244 H60.549 - 11/07/2021 - LEFT WORSE ; Betamethas one Valerate cream prescribed Retraction of tympanic membrane 13382407 H73.899 - 11/07/2021 - left sided History of surgery 97374 5003 Z98.890 - Sinus surgery- Tonsillect johana Examination of ear 32549 0007 Z01.10 -BILATERAL Bilateral earache 584363 003 H92.03 - 11/07/2021 - intermitte nt Obstructiv e sleep apnea syndrome 54425352 G47.33 CONTINUE CPAP Health Concerns Section Related Observation LastModified by Organization Detai ls LastModified Time None Recorded Concern Status LastModified by Organization Details LastModified Time None Recorded Advance Directives Directive None Recorded Payers Insurance Date Sequence Insurance Name Policy Number Policy Hairston Covered Member ID Hairston Member ID Guarantor Name 12/14/2023 1 [place] [id number] Cielo Chase [id number] Cielo Chase Notes Date Note Type Note [...] history of bilateral tinnitus for several years. Yolanda aggarwal [facility] 03/31/2019 08:41:09 04/07/2019 text/html [...] is doing well otherwise. TAMAR LIANG MD [address] [place] [address], [address], [facility] 04/07/2019 08:52:22 04/20/2020 text/html This patient returns for recheck of EARS. Since last visit patient reports no change in symptoms with flonase. SHE REPORTS EAR PRESSURE, HEARING HER BREATHING, DIZZINESS WITH BENDING OVER, AND SOME EARACHES IN THE COLD. 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 ARTHRITIS, FIBROMYALGIA, GERD, ECZEMA, S/P SEPTO [facility] 09/25/18 DR. 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 [place] 04/07/20 DR. LIANG: Cielo returns today in [...] is doing well otherwise. DAKOTA CHOU MD [address] [place] [address], [address], [facility] 04/20/2020 13:43:08 11/07/2021 text/html This patient [...] sleep apnea. 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, [address], [place] [facility] 11/08/2021 17:08:25 OBGyn Episode No OBEpisode recorded.
--- OUTSIDE RECORDS SUMMARY | 2025-03-25 08:15 | XMS_ITS | Encounter Summary ---
[facility] Address [address] [place] [address] Care Team Providers Care Donkey Engine Firer/Fireman Name Role Phone Surinder Rocha MD Primary Care Provider [phone] Reason for Visit * Reason Onset Date Comments Med Refill 11/09/2019 Encounter Details Date Type Department Care Team (Late st Contact Info) Description 11/09/2019 Refill [facility] [address] [place] [address] January Flores DO [address] [place], [place] [id number] Adjustment disorder with anxious mood; Insomnia, unspecified [...] [facility] [address] [place] [address] Surinder Rocha MD [address] [place] [address] 08/25/2025 8:30 AM EDT Appointment [address] [address] documented as of this encounter Visit Diagnoses Diagnosis Adjustment disorder with anxious mood Adjustment disorder with anxiety Insomnia, unspecified type documented in this encounter Additional Health Concerns Infection Onset Date Last Indicated Resolved Time COVID Screen (preop/placement) 04/24/2020 04/24/2020 04/25/2020 1:35 AM EST COVID Screen (preop/placement) 08/19/2020 08/19/2020 08/19/2020 3:31 AM EDT documented as of this encounter Care Teams Donkey Engine Firer/Fireman Relationship Specialty Start Date End Date Surinder Rocha MD [address] [place] [address] PCP - General Family Medicine 10/05/19 documented as of this encounter
--- OUTSIDE RECORDS SUMMARY | 2025-03-25 08:15 | XMS_ITS | Encounter Summary ---
[facility] Organization [facility] [address] [place] [address] Care Team Providers Care Embossing Calender Operator Name Role Phone Surinder Rocha MD Primary Care Provider [phone] Reason for Visit * Reason Comments Med Refill Encounter Details Date Type Department Care Team (Late st Contact Info) Description 06/15/2020 Refill [facility] [address] [place] [address] Surinder Rocha MD [address] [place], [place] [id number] Idiopathic peripheral neuropathy Social History Tobacco Use [facility] [address] [place] [phone] Surinder Rocha MD [address] [place] [address] 08/25/2025 8:30 AM EDT Appointment [place] [id number] documented as of this encounter Visit Diagnoses Diagnosis Idiopathic peripheral neuropathy Unspecified hereditary and idiopathic peripheral neuropathy documented in this encounter Additional Health Concerns Infection Onset Date Last Indicated Resolved Time COVID Screen (preop/placement) 08/19/2020 08/19/2020 08/19/2020 3:31 AM EDT documented as of this encounter Care Teams Embossing Calender Operator Relationship Specialty Start Date End Date Surinder Rocha MD [address] [place] [address] PCP - General Family Medicine 10/05/19 documented as of this encounter
--- OUTSIDE RECORDS SUMMARY | 2025-03-25 08:15 | XMS_ITS | Encounter Summary ---
[facility] [address] [place] [address] Care Team Providers Care Sand Screener Name Role Phone Surinder Rocha MD Primary Care Provider [phone] Reason for Visit * Reason Comments Med Refill Encounter Details Date Type Department Care Team (Late st Contact Info) Description 11/06/2019 Refill [facility] [address] [place] [phone] January Flores DO [address] [place] [address] Insomnia, unspecified type Social History Tobacco Use [...] [facility] [address] [place] [address] Surinder Rocha MD [address] [place] [address] 08/25/2025 8:30 AM EDT Appointment [place] [phone] documented as of this encounter Visit Diagnoses Diagnosis Insomnia, unspecified type documented in this encounter Additional Health Concerns Infection Onset Date Last Indicated Resolved Time COVID Screen (preop/placement) 04/24/2020 04/24/2020 04/25/2020 1:35 AM EST COVID Screen (preop/placement) 08/19/2020 08/19/2020 08/19/2020 3:31 AM EDT documented as of this encounter Care Teams Sand Screener Relationship Specialty Start Date End Date Surinder Rocha MD [address] [place], [place] [id number] PCP - General Family Medicine 10/05/19 documented as of this encounter
--- OUTSIDE RECORDS SUMMARY | 2025-03-25 08:15 | XMS_ITS | Encounter Summary ---
[facility] Address [address] [place] [address] Care Team Providers Care Financial Associate Name Role Phone Surinder Rocha MD Primary Care Provider [phone] Reason for Visit * Reason Onset Date Comments Med Management 03/09/2025 Encounter Details Date Type Department Care Team (Late st Contact Info) Description 03/09/2025 Telephone [facility] FAMILY MEDICINE [address] [place] [address] Surinder Rocha MD [address] [place], [place] [id number] Med Management Social History Tobacco Use Types [...] or training? Not on file Preferred Language Kazakh 08/18/2023 PHQ-2 Answer Date Recorded Patient Health Questionnaire-2 Score 1 09/08/2024 Comments No Sex and Gender Information Value Date Recorded Sex Assigned at Female 11/13/2023 11:14 AM EDT Legal Sex Female 1:16 PM EDT Gender Identity Female 11/13/2023 11:14 AM EDT Sexual Orientation Straight 11/13/2023 11 :14 AM EDT documented as of this encounter Miscellaneous Notes * Telephone Encounter - Irena Toscano MA - 03/10/2025 3:08 PM EST Pt informed and understood * Telephone Encounter - Jeanette Hooks PA-C - 03/10/2025 2:54 PM EST Okay, I will send in [facility]. * Telephone Encounter - Kaila Sykes RegSched Rep - 03/10/2025 2:12 PM EST THE PHARMACY TOLD PATIENT THEY COULD NOT GET INSURANCE TO PAY DUE TO THE INTERACTION OF ISAC AND RAINRO * Telephone Encounter - Jeanette Hooks PA-C - 03/10/2025 10:[address] Rocha ordered Cipro, I would keep it that way. Please forward message to him for him to review tomorrow to be sure. * Telephone Encounter - Uzma Jose RegSched Rep - 03/09/2025 12:06 PM EST Caller: [facility] - [place], [place] - [address] [phone] [facility] [phone] Relationship: Pharmacy Best call back number: [phone] What was the call regarding: PHARMACY HAS A CONCERN ABOUT THE CIPROFLOXACIN THAT WAS CALLED IN FOR THE PATIENT. PHARMACIST STATES THIS MEDICATION CAN INCREASE THE LEVEL OF AMBIEN IN THE BODY. SHE STATES THERE IS AN ALTERNATIVE DRUG, LEVOFLOXACIN, THAT WOULD BE OK TO TAKE WITH HER AMBIEN. THEY NEED US TO CONFIRM DISPENSING THE CIPRO OR SEND A NEW PRESCRIPTION FOR THE LEVOFLOXACIN. documented in this encounter Plan of Treatment Upcoming Encounters Date Type Department Care Team (Late st Contact Info) Description 03/30/2025 8:45 AM EST Office Visit [facility] FAMILY MEDICINE [address] [place] [address] Surinder Rocha MD [address] [place] [address] 08/25/2025 8:30 AM EDT Appointment [facility] [address] [place], [place] [id number] documented as of this encounter Visit Diagnoses Not on filedocumented in this encounter Additional Health Concerns Assessment Noted Time PHQ-2 Depression Total Score: 1 05/20/19 24 12:36 PM EST documented as of this encounter Care Teams Financial Associate Relationship Specialty Start Date End Date Surinder Rocha MD [address] [place] [address] PCP - General Family Medicine 10/05/19 documented as of this encounter
--- NOTE | 2025-03-25 08:30 | US_ITS ---
FINAL REPORT TECHNIQUE: Real-time grayscale and color ultrasound of the thyroid was performed. CLINICAL HISTORY: History of thyroid nodule, change in voice COMPARISON: 02/21/2023 FINDINGS: The thyroid gland measures 27 x 10 x 11 mm on the right and 27 x 10 x 8 mm on the left. The isthmus measures 3 mm. Nodules: Hbpt-gr-wslejqpl right TR 4 nodule has decreased in size now measuring 7 x 6 mm. IMPRESSION: 7 mm right TR 4 nodule. No follow-up required per TI-RADS criteria. Reviewed, Interpreted and Dictated by Chuy Wright MD Transcribed by Elizabeth Cui Authenticated and [facility]
== END 2025-03-25 23:59 | disposition home or self-care (01) ==
LOC: RAD 08:08
PROVIDERS: PCP Family Medicine; Visit Provider Student in an Organized Health Care Education/Training Program
DX: E03.9 Hypothyroidism, unspecified (principal); E04.1 Nontoxic single thyroid nodule
CPT/HCPCS: 76536

== ENCOUNTER 2025-04-19 14:15 | Outpatient (CLI) | payer MEDICAID, SELFPAY ==
--- OUTSIDE RECORDS SUMMARY | 2025-02-22 09:45 | XMS_ITS | Encounter Summary ---
[facility] Address [address] [place] [address] Care Team Providers Care Paper Cone Maker Name Role Phone Surinder Rocha MD Primary Care Provider [phone] Reason for Visit * Reason Comments URI X 1 wk Urinary Tract Infection X 4 days ago Shortness of Breath Encounter Details Date Type Department Care Team (Late st Contact Info) Description 02/22/2025 10:45 AM EDT Office Visit [facility] [address] [place] [address] Surinder Rocha MD [address] [place], [place] [id number] Dysuria (Primary Dx); Acute non-recurrent maxillary sinusitis; [...] or training? Not on file Preferred Language Citizen Of [place] 08/18/2023 PHQ-2 Answer Date Recorded Patient Health [...] breathing that is worse, will continue advair [facility] documented in this encounter Plan of Treatment Upcoming Encounters Date Type Department Care Team (Late st Contact Info) Description 08/25/2025 8:30 AM EDT Appointment [address] [place] [address] documented as of this encounter Procedures Procedure [...] / Unknown 02/22/2025 10:53 AM EDT 02/22/2025 Comment: Narrative [facility]) - 02/24/2025 3:07 AM EDT Performed at: 01 - [facility] [id number] Analyst Sales: Vernon Garcia PhD, Phone: [phone] us Surinder Rocha MD MICROBIOLOGY - GENERAL ORDERABL ES Final Result Performing Organization Address City/[facility] Co de Phone Number [facility] [address] [place] [address], [place] [phone] [facility] [address] [place] [address], [place] [phone] * POCT urinalysis dipstick, automated (02/22/2025 10:42 AM EDT) Color Yellow Yellow, Straw, Dark Yellow, Kaila [facility] Clarity, UA Clear Clear [facility] Specific [place] 1.010 1.005 - 1.030 [facility] pH, Urine 6.0 5.0 - 8.0 [facility] Leukocytes Negative Negative [facility] Nitrite, UA Negative Negative [facility] Protein, POC Negative Negative mg/dL [facility] Glucose, UA Negative Negative mg/dL [facility] Ketones, UA Negative Negative [facility] Urobilinogen, UA Normal Normal, 0.2 E.U./dL [facility] Bilirubin Negative Negative [facility] Blood, UA Negative Negative [facility] Lot Number [id number] [facility] Expiration Date 05-27-2026 [facility] Urine 02/22/2025 10:4 2 AM EDT Surinder Rocha MD POINT OF CARE TEST ORDERABLES F inal Result Performing Organization Address City/[facility] Co de Phone Number [facility]
[address] [place] [address], documented in this encounter Visit Diagnoses Diagnosis Dysuria- Primary Acute non-recurrent maxillary sinusitis Seasonal allergic rhinitis, unspecified trigger Moderate persistent asthma with exacerbation Unspecified asthma, with exacerbation documented in this encounter Additional Health Concerns Assessment Noted Time PHQ-2 Depression Total Score: 1 05/20/19 24 12:36 PM EST documented as of this encounter Care Teams Paper Cone Maker Relationship Specialty Start Date End Date Surinder Rocha MD [facility] [place] [address] PCP - General Family Medicine 10/05/19 documented as of this encounter
--- OUTSIDE RECORDS SUMMARY | 2025-02-23 08:21 | XMS_ITS | Encounter Summary ---
[facility] Address [address] [place] [address] Care Team Providers Care Medical Supervisor Name Role Phone Surinder Rocha MD Primary Care Provider [phone] Reason for Visit * Diagnostic Imaging (Routine) - Pending Review Specialty Diagnoses / Procedures Referred By Contac t Referred To Contact Radiology Diagnoses Abnormal mammogram Procedures US Fine Needle Aspiration BX 1st Lesion US Fine Needle Aspiration BX 1ST Lesion Surinder Rocha MD [address] [facility] [place] [address] Phone: tel: fax: [facility] [address] [place] [address] Phone: tel: Referral ID Status Reason Start Date Expiration Date V isits Requested Visits Authorized [id number] Pending Review 02/08/2025 05/10/2026 1 1 Encounter Details Date Type Department Care Team (Latest Contact Info) Description 02/23/2025 9:21 AM EDT - 02/23/2025 11:59 PM EDT Hospital Encounter [facility] [address] [facility] [address] [place] [address] Abnormal mammogram Discharge Disposition: Home or Self [...] 0.083% nebulizer solution Take by nebulization. 07/31/2024 albuterol sulfate HFA 108 (90 Base) MCG/ACT inhalerIndications: Moderate persistent asthma with exacerbation 1-2 puffs q 4-6 hours PRN 18 g 1 02/22/2025 amitriptyline (ELAVIL) 50 MG tabletIndications:F ibromyalgia Take [...] night at bedtime. 90 tablet 1 11/15/2024 fluticasone (FLONASE) 50 MCG/ACT nasal sprayIndications:Se asonal allergic rhinitis, unspecified trigger Administer 2 sprays into the nostril(s) as directed by provider Daily. 11 g 5 02/22/2025 furosemide (Lasix) 40 MG tabletIndications:B ilateral lower [...] OFF FOR 12 HOURS 90 patch 03/22/2024 montelukast (SINGULAIR) 10 MG tabletIndications:M oderate persistent asthma with exacerbation TAKE 1 TABLET BY MOUTH ONCE DAILY AT NIGHT 90 tablet 02/22/2025 Plecanatide (Trulance) 3 MG tabletIndications:C hronic idiopathic [...] Needed for Sleep. 90 tablet 1 10/01/2024 amoxicillin-clavula nader (Augmentin ES-600) 600-42.9 MG/5ML suspensionIndicatio ns:Acute non-recurrent maxillary sinusitis 7.5 mL PO BID 105 mL 02/22/2025 5 Fluticasone-Salmete rol (ADVAIR/WIXELA) 100-50 MCG/ACT DISKUSIndications:M oderate persistent asthma with exacerbation INHALE 1 PUFF BY MOUTH TWICE DAILY 60 each 02/08/2025 5 pantoprazole (Protonix) 40 MG EC tabletIndications:G astroesophageal reflux disease, unspecified whether esophagitis present Take 1 tablet by mouth 2 (Two) Times a Day. 180 tablet 1 10/01/2024 5 prednisoLONE ODT (Orapred ODT) 15 MG disintegrating tabletIndications:A cute non-recurrent maxillary sinusitis Place 2 tablets on the tongue Daily. 10 tablet 02/22/2025 5 documented as of this encounter Plan of Treatment Upcoming Encounters Date Type Department Care Team (Late st Contact Info) Description 08/25/2025 8:30 AM EDT Appointment [facility] [address] [place] [address] documented as of this encounter Procedures Procedure Name Priority Date/Time Associated Diagnosis Comments US FINE NEEDLE ASPIRATION BX 1ST LESION Routine 02/23/2025 11:04 AM EDT Abnormal mammogram NON-PENCIL SORTER CYTOLOGY, [facility] (PETRA, COR, MAD, MAAME) Routine 02/23/2025 10:43 AM EDT documented in this encounter Results * US Fine Needle Aspiration BX 1st Lesion (02/23/2025 11:04 AM EDT) Anatomical Region Laterality Modality Ultrasound 02/23/2025 12:1 8 PM EDT Addenda Addendum by Nallely Handley MD on 03/02/2025 12:05 PM EDT ADDENDUM: Postbiopsy right MLO and laterally exaggerated CC views were obtained with tomosynthesis. The coil-shaped marking clip is well positioned at the site of the lymph node that underwent FNA. 03/02/2025 12:[address] Nallely Handley MD on Impressions 02/24/2025 1:26 PM EDT Technically successful ultrasound-guided FNA of a 1.2 cm right axillary lymph node with thickened cortical tissue. CYTOLOGY: Negative for malignant cells. FLOW CYTOMETRY: No immunophenotypic abnormalities identified. RECOMMENDATION: Short interval bilateral mammographic follow-up in 6 months to reevaluate bilateral axillary lymph nodes. The patient will be called with final results and recommendations by a breast care nurse. _ PHYSICIAN ORDER DIAGNOSTIC 6 MONTH FOLLOW UP MAMMOGRAM AND/OR BREAST ULTRASOUND. DIAGNOSIS: ABNORMAL MAMMOGRAM. 02/24/2025 1:[address] Nallely Handley MD on Narrative 02/24/2025 1:26 PM EDT ULTRASOUND-GUIDED FNA: RIGHT AXILLA HISTORY: 59-year-old patient with bilateral axillary lymphadenopathy. A 1.2 cm right axillary lymph node with thickened cortical tissue will be targeted for FNA. TECHNIQUE: After obtaining informed consent and performing a timeout , the right axilla was prepped and draped in the usual sterile fashion. 5 cc of lidocaine without epinephrine was utilized for local anesthesia. A 22-gauge needle attached to a self locking syringe was placed into the cortical tissue of a 1.2 cm right axillary lymph node under direct sonographic visualization. Three separate passes were made into the lymph node. The aspirates from the first 2 passes were placed into cytologic fluid. The final aspirate was placed into flow cytometry media. A coil-shaped marking clip was placed at the site of FNA. No complications occurred during this procedure. us Nallely Handley MD [facility] [place] ORDERABLES Edited Resul t - Final * NON-PENCIL SORTER CYTOLOGY, [facility] (PETRA,COR,MAD,MAAME) (02/23/2025 10:43 AM EDT) Reference Lab Report FINAL FNA REPORT -- DIAGNOSIS: A. LYMPH NODE, RIGHT, AXILLA FNA: Negative for malignant cells. Final Reviewed, Diagnosed and Electronically Signed By: MARNI MUELLER DO -- MICROSCOPIC DESCRIPTION: A. Polymorphous lymphocytes are present. No metastatic tumor is identified. See flow cytometric analysis below. Please note FNA is not a methodology of choice to exclude lymphoma; if there is a clinical suspicion for lymphoma, solid tissue sampling (needle core versus excision) with concurrent flow cytometry would be recommended. CLINICAL HISTORY: Abnormal mammogram SPECIMENS SUBMITTED: A. LYMPH NODE, RIGHT AXILLA, FNA: GROSS SPECIMEN DESCRIPTION: A. 30 ccs translucent red fluid, received in fixative. ThinPrep slides prepared. 1 RPMI received. Cell block has been examined. FLOW INTERPRETATION: No immunophenotypic abnormalities identified. FLOW CYTOMETRY DATA: Flow cytometry shows a cellular specimen with a viability of 92.1%. Lymphocytes are 86.3% of the total cells. T-cells (63%) show preserved expression of bobo-T-cell antigens and have a CD4 to CD8 ratio of 7:1. B-cells (20.3%) are polyclonal with a kappa to lambda ratio of 1.5:1. The following antibodies were evaluated by flow cytometry: CD2, CD3, CD4, CD5, CD7, CD8, CD10, CD19, CD20, CD38, CD45, CD56, CD57, CD123, [place], and Lambda. Interpretation performed by Dr. Lin. The performance of these analyte specific reagents was determined by [facility] (see above for address). These tests have not been cleared or approved by the U.S. Food & Drug Administration (FDA). The FDA has determined that such approval is not necessary. These tests are used for clinical purposes and should not be considered experimental or research. 02/24/2025 12:24 PM EDT [facility] Body Fluid Collection / Unknown 02/23/2025 10:43 AM EDT 02/23/2025 11:42 AM EDT us Nallely Handley MD PATHOLOGY/CYTOLOGY ORDERABLES Final Result [facility]
[address] [place] [address], documented in this encounter Visit Diagnoses Diagnosis Abnormal mammogram Abnormal mammogram, unspecified documented in this encounter Administered Medications Inactive Administered Medications - up to 3 most recent administrations Medication Order MAR Action Action Date Dose Rate Site lidocaine (XYLOCAINE) 1 % injection 5 mL 5 mL, Injection, Once, On Fri02/23/25 at 0930, For 1 dose Given 02/23/2025 10:29 AM EDT 5 mL documented in this encounter Additional Health Concerns Assessment Noted Time PHQ-2 Depression Total Score: 1 05/20/19 24 12:36 PM EST documented as of this encounter Care Teams Medical Supervisor Relationship Specialty Start Date End Date Surinder Rocha MD [address] [place] [address] PCP - General Family Medicine 10/05/19 documented as of this encounter
--- OUTSIDE RECORDS SUMMARY | 2025-02-23 08:26 | XMS_ITS | Encounter Summary ---
Author Organization [facility] Address [address] [place] [address] Care Team Providers Care Juice Standardizer Name Role Phone Surinder Rocha MD Primary Care Provider [phone] Reason for Referral * Diagnostic Imaging (Routine) - Pending Review Specialty Diagnoses / Procedures Referred By Contac t Referred To Contact Radiology Diagnoses Abnormal mammogram Procedures Mammo Post Device Placement Right Nallely Handley MD [address] [place] [address] Phone: tel: fax: Referral ID Status Reason Start Date Expiration Date V isits Requested Visits Authorized [id number] Pending Review 02/23/2025 05/25/2026 1 1 Reason for Visit * Diagnostic Imaging (Routine) - Pending Review Specialty Diagnoses / Procedures Referred By Contlen harden Referred To Contact Radiology Diagnoses Abnormal mammogram Procedures Mammo Post Device Placement Right Nallely Handley MD [address] [address] Phone: tel: fax: Referral ID Status Reason Start Date Expiration Date V isits Requested Visits Authorized [id number] Pending Review 02/23/2025 05/25/2026 1 1 Encounter Details Date Type Department Care Team (Latest Contact Info) Description 02/23/2025 9:26 AM EDT - 02/23/2025 11:59 PM EDT Hospital Encounter [facility] [address] [place] [address] Abnormal mammogram Discharge Disposition: Home or Self [...] or training? Not on file Preferred Language Hong Konger 08/18/2023 PHQ-2 Answer Date Recorded Patient Health [...] Info) Description 08/25/2025 8:30 AM EDT Appointment [address] [place] [id number] documented as of this encounter Procedures Procedure [...] documented as of this encounter Care Teams Juice Standardizer Relationship Specialty Start Date End Date Surinder Rocha MD [address] [place] [address] PCP - General Family Medicine 10/05/19 documented as of this encounter
--- OUTSIDE RECORDS SUMMARY | 2025-03-09 12:00 | XMS_ITS | Encounter Summary ---
[facility] Address [address] [place] [address] Care Team Providers Care Project Control Officer Name Role Phone Surinder Rocha MD Primary Care Provider [phone] Reason for Referral * Medical Care (Routine) - Closed Specialty Diagnoses / Procedures Referred By Contlen t Referred To Contact Diagnoses Observed sleep apnea Procedures Home Sleep Study Surinder Rocha MD [address] [facility] [place] [place] [address] Phone: tel: fax: [facility] [address] [place] [address] Phone: tel: fax: Referral ID Status Reason Start Date Expiration Date Visits Re quested Visits Authorized [id number] Closed 03/09/2025 06/08/2026 1 1 Reason for Visit * Reason Comments Hospital Follow Up Visit [facility] 03/03/25, H EART CATHRECORDS REQUESTED 03/03, no call made Encounter Details Date Type Department Care Team ([facility] Contact Info) Description 03/09/2025 12:00 PM EST Office Visit [facility] [address] [place] [address] Surinder Rocha MD [address] [place] [address] Coronary artery disease of [place] artery of [place] heart with stable angina pectoris (Primary Dx); [...] having some atypical chest pains Went to [facility] ER and was admittred Had cath without [...] this visit: 1. Coronary artery disease of [place] artery of [place] heart with stable angina pectoris (Primary) 2. [...] Info) Description 08/25/2025 8:30 AM EDT Appointment [address] [place] [address] Scheduled Orders Name Type Priority Associated Diagnoses [...] 03/14/2025 3:07 AM EST Performed at: - Lab[address] [id number] Administrative Associate: Vernon Garcia PhD, Phone: [phone] Surinder Rocha MD MICROBIOLOGY - GENERAL ORDERABL ES Final Result Performing Organization Address City/State/[facility] Co de Phone Number [facility] (AMBULATORY) [address] [id number], [facility] [address] [place] [address], * (ABNORMAL) POCT urinalysis dipstick, automated (03/09/2025 11:20 AM EST) Color Yellow Yellow, Straw, Dark Yellow, Kaila [facility] Clarity, UA Clear Clear [facility] Specific [place] 1.015 1.005 - 1.030 [facility] pH, Urine 6.0 5.0 - 8.0 [facility] Leukocytes Moderate (2+)(A) Negative [facility] Nitrite, UA Positive(A) Negative [facility] Protein, POC Negative Negative mg/dL [facility] Glucose, UA Negative Negative mg/dL [facility] Ketones, UA Negative Negative [facility] Urobilinogen, UA Normal Normal, 0.2 E.U./dL [facility] Bilirubin Negative Negative [facility] Blood, UA Trace(A) Negative [facility] Lot Number [id number] [facility] Expiration Date 05-27-2026 [facility] Urine 03/09/2025 11:2 0 AM EST us Surinder Rocha MD POINT OF CARE TEST ORDERABLES F inal Result [facility]
[address] [place] [address], documented in this encounter Visit Diagnoses Diagnosis Coronary artery disease of [place] artery of [place] heart with stable angina pectoris- Primary Dysuria Acute cystitis without hematuria Observed sleep apnea documented in this encounter Additional Health Concerns Assessment Noted Time PHQ-2 Depression Total Score: 1 05/20/19 24 12:36 PM EST documented as of this encounter Care Teams Project Control Officer Relationship Specialty Start Date End Date Surinder Rocha MD [address] [place] [address] [place] [address] PCP - General Family Medicine 10/05/19 documented as of this encounter
--- OUTSIDE RECORDS SUMMARY | 2025-04-20 18:38 | XMS_ITS | Encounter Summary ---
[facility] Address [address] [place] [address] Care Team Providers Care Lathe Hand Name Role Phone Surinder Rocha MD Primary Care Provider [phone] Encounter Details Date Type Department Care Team [...] or training? Not on file Preferred Language Panamanian 08/18/2023 PHQ-2 Answer Date Recorded Patient Health [...] Info) Description 08/25/2025 8:30 AM EDT Appointment [address] [address] documented as of this encounter Visit Diagnoses Not on filedocumented in this encounter Additional Health Concerns Assessment Noted Time PHQ-2 Depression Total Score: 1 05/20/19 24 12:36 PM EST documented as of this encounter Care Teams Lathe Hand Relationship Specialty Start Date End Date Surinder Rocha MD [address] [place] [address] PCP - General Family Medicine 10/05/19 documented as of this encounter
--- OUTSIDE RECORDS SUMMARY | 2025-04-20 18:38 | XMS_ITS | Encounter Summary ---
[facility] Address [address] [place] [address] Care Team Providers Care Manager Title Name Role Phone Surinder Rocha MD Primary Care Provider [phone] Encounter Details Date Type Department Care Team (Late st Contact Info) Description 02/09/2025 Results Follow-Up [facility] FAMILY MEDICINE [address] [place] [address] Surinder Rocha MD [address] [place], [place] [id number] Social History Tobacco Use Types Packs/Day Years [...] or training? Not on file Preferred Language Egyptian 08/18/2023 PHQ-2 Answer Date Recorded Patient Health [...] Info) Description 08/25/2025 8:30 AM EDT Appointment [place] [id number] documented as of this encounter Visit Diagnoses Not on filedocumented in this encounter Additional Health Concerns Assessment Noted Time PHQ-2 Depression Total Score: 1 05/20/19 24 12:36 PM EST documented as of this encounter Care Teams Manager Title Relationship Specialty Start Date End Date Surinder [place] [address] PCP - General Family Medicine 10/05/19 documented as of this encounter
--- OUTSIDE RECORDS SUMMARY | 2025-04-20 18:38 | XMS_ITS | Encounter Summary ---
Author Organization [facility] Address [address] [place] [address] Care Team Providers Care Principal Software Engineer Name Role Phone Surinder Rocha MD Primary Care Provider [phone] Reason for Visit * Reason Onset Date Comments PHARMACY CALL 04/13/2025 Encounter Details Date Type Department Care Team (Late st Contact Info) Description 04/13/2025 Telephone [facility] FAMILY MEDICINE [address] [place] [address] Surinder Rocha MD [address] [place], [place] [id number] PHARMACY CALL Social History Tobacco Use Types Packs/Day Years [...] or training? Not on file Preferred Language Slovak 08/18/2023 PHQ-2 Answer Date Recorded Patient Health Questionnaire-2 Score 1 09/08/2024 Comments No Sex and Gender Information Value Date Recorded Sex Assigned at Female 11/13/2023 11:14 AM EDT Legal Sex Female 1:16 PM EDT Gender Identity Female 11/13/2023 11:14 AM EDT Sexual Orientation Straight 11/13/2023 11 :14 AM EDT documented as of this encounter Miscellaneous Notes * Telephone Encounter - Yuliet Marlow RegSched Rep - 04/13/2025 12:02 PM EST Pharmacy Name: [facility] Pharmacy physician relations representative name: BOSSMAN Pharmacy physician relations representative phone number: [phone] What medication are you calling in regards to: pantoprazole (Protonix) 40 MG EC tablet What question does the pharmacy have: PHARMACY STATED THAT PATIENT'S INSURANCE WILL ONLY COVER MEDICATION TAKEN ONCE DAILY NOT TWO TIMES A DAY documented in this encounter Plan of Treatment Upcoming Encounters Date Type Department Care Team (Late st Contact Info) Description 08/25/2025 8:30 AM EDT Appointment [place] [address] [address] documented as of this encounter Visit Diagnoses Diagnosis Gastroesophageal reflux disease, unspecified whether esophagitis present documented in this encounter Additional Health Concerns Assessment Noted Time PHQ-2 Depression Total Score: 1 05/20/19 24 12:36 PM EST documented as of this encounter Care Teams Principal Software Engineer Relationship Specialty Start Date End Date Surinder Rocha MD [address] [place], [place] [id number] PCP - General Family Medicine 10/05/19 documented as of this encounter
--- OUTSIDE RECORDS SUMMARY | 2025-04-20 18:38 | XMS_ITS | Encounter Summary ---
[facility] [address] [place] [address] Care Team Providers Care Ultrasound Applications Specialist Name Role Phone Surinder Rocha MD Primary Care Provider [phone] Reason for Visit * Reason Onset Date Comments New Med Request 02/25/2025 Encounter Details Date Type Department Care Team (Late st Contact Info) Description 02/25/2025 Telephone [facility] FAMILY MEDICINE [address] [place] [address] Surinder Rocha MD [address] [place], [place] [id number] New Med Request Social History Tobacco Use [...] [facility]- [place] - [address] [phone] [facility] [phone] FX Additional notes: PATIENT WAS PRESCRIBED THIS ANTIBIOTIC A LIQUID FORM, BUT IT IS VERY HARD ON HER STOMACH. PATIENT IS WANTING TO KNOW IF A PILL FORM CAN BE CALLED IN INSTEAD documented in this encounter Plan of Treatment Upcoming Encounters Date Type Department Care Team (Late st Contact Info) Description 08/25/2025 8:30 AM EDT Appointment [place] [id number] documented as of this encounter Visit Diagnoses Not on filedocumented in this encounter Additional Health Concerns Assessment Noted Time PHQ-2 Depression Total Score: 1 05/20/19 24 12:36 PM EST documented as of this encounter Care Teams Ultrasound Applications Specialist Relationship Specialty Start Date End Date Surinder Rocha MD [address] [place] [address] PCP - General Family Medicine 10/05/19 documented as of this encounter
--- OUTSIDE RECORDS SUMMARY | 2025-04-20 18:38 | XMS_ITS | Encounter Summary ---
Author Organization [facility] Address [address] [place] [address] Care Team Providers Care Equipment Driver Name Role Phone Surinder Rocha MD Primary Care Provider [phone] Reason for Visit * Reason Comments Med Refill Encounter Details Date Type Department Care Team (Late st Contact Info) Description 02/22/2025 Refill [facility] FAMILY MEDICINE [address] [place] [address] Jeanette Hooks, MAXX 210 [facility] [place] [address] Moderate persistent asthma with exacerbation Social History [...] Info) Description 08/25/2025 8:30 [place] [address] documented as of this encounter Visit Diagnoses Diagnosis Moderate persistent asthma with exacerbation Unspecified asthma, with exacerbation documented in this encounter Additional Health Concerns Assessment Noted Time PHQ-2 Depression Total Score: 1 05/20/19 24 12:36 PM EST documented as of this encounter Care Teams Equipment Driver Relationship Specialty Start Date End Date Surinder Rocha MD [address] [place] [address] PCP - General Family Medicine 10/05/19 documented as of this encounter
--- OUTSIDE RECORDS SUMMARY | 2025-04-20 18:38 | XMS_ITS | Encounter Summary ---
Author Organization [facility] Address [address] [place] [address] Care Team Providers Care Beauty Artist Name Role Phone Surinder Rocha MD Primary Care Provider [phone] Reason for Visit * Reason Comments Med Refill Encounter Details Date Type Department Care Team (Late st Contact Info) Description 03/05/2025 Refill [facility] FAMILY MEDICINE [address] [place] [address] Jeanette Hooks, MAXX 210 [facility] [place], [place] [id number] Moderate persistent asthma with exacerbation Social History [...] or training? Not on file Preferred Language Pashto 08/18/2023 PHQ-2 Answer Date Recorded Patient Health [...] Info) Description 08/25/2025 8:30 [place] [address] documented as of this encounter Visit Diagnoses Diagnosis Moderate persistent asthma with exacerbation Unspecified asthma, with exacerbation documented in this encounter Additional Health Concerns Assessment Noted Time PHQ-2 Depression Total Score: 1 05/20/19 24 12:36 PM EST documented as of this encounter Care Teams Beauty Artist Relationship Specialty Start Date End Date Surinder Rocha MD [address] [place] [address] PCP - General Family Medicine 10/05/19 documented as of this encounter
--- OUTSIDE RECORDS SUMMARY | 2025-04-20 18:38 | XMS_ITS | Encounter Summary ---
[facility] Address [address] [place] [address] Care Team Providers Care Physician/Internist Name Role Phone Surinder Smiley MD Primary Care Provider [phone] Reason for Visit * Reason Onset Date Comments Med Management 02/24/2025 Encounter Details Date Type Department Care Team (Late st Contact Info) Description 02/24/2025 Telephone [facility] FAMILY MEDICINE [address] [place] [address] Surinder Smiley MD [address] [place], [place] [phone] Med Management Social History Tobacco Use Types [...] or training? Not on file Preferred Language Tamazight 08/18/2023 PHQ-2 Answer Date Recorded Patient Health [...] Info) Description 08/25/2025 8:30 AM EDT Appointment [facility] [address] [facility] [address] [place] [id number] documented as of this encounter Visit Diagnoses Not on filedocumented in this encounter Additional Health Concerns Assessment Noted Time PHQ-2 Depression Total Score: 1 05/20/19 24 12:36 PM EST documented as of this encounter Care Teams Physician/Internist Relationship Specialty Start Date End Date Surinder Smiley MD [address] [place] [address] PCP - General Family Medicine 10/05/19 documented as of this encounter
--- OUTSIDE RECORDS SUMMARY | 2025-04-20 18:38 | XMS_ITS | Encounter Summary ---
Author Organization [facility] Address [address] [place] [address] Care Team Providers Care Channel Process Supervisor Name Role Phone Surinder Rocha MD Primary Care Provider [phone] Encounter Details Date Type Department Care Team (Late st Contact Info) Description 02/25/2025 Telephone [facility] [address] [address] Rosalba Irizarry RN Social History Tobacco Use [...] or training? Not on file Preferred Language Yakut 08/18/2023 PHQ-2 Answer Date Recorded Patient Health [...] support given, verbalized understanding. Patient transferred to [facility] scheduling per request to warren clarke recommended follow-up documented in this encounter Plan of Treatment Upcoming Encounters Date Type Department Care Team (Late st Contact Info) Description 08/25/2025 8:30 AM EDT Appointment [address] [address] documented as of this encounter Visit Diagnoses Not on filedocumented in this encounter Additional Health Concerns Assessment Noted Time PHQ-2 Depression Total Score: 1 05/20/19 24 12:36 PM EST documented as of this encounter Care Teams Channel Process Supervisor Relationship Specialty Start Date End Date Surinder Rocha MD [address] [place] [address] PCP - General Family Medicine 10/05/19 documented as of this encounter
--- OUTSIDE RECORDS SUMMARY | 2025-04-20 18:38 | XMS_ITS | Encounter Summary ---
[facility] Address [address] [place] [address] Care Team Providers Care Trigonometry Teacher Name Role Phone Surinder Rocha MD Primary Care Provider [phone] Reason for Visit * Reason Onset Date Comments PHARMACY CALLS 03/01/2025 Encounter Details Date Type Department Care Team (Late st Contact Info) Description 03/01/2025 Telephone [facility] FAMILY MEDICINE [address] [place] [address] Surinder Rocha MD [address] [place], [place] [id number] PHARMACY CALLS Social History Tobacco Use Types [...] or training? Not on file Preferred Language Hungarian 08/18/2023 PHQ-2 Answer Date Recorded Patient Health [...] - 03/01/2025 9:31 AM EDT Pharmacy Name: [facility] - [place], [place] - [address] [phone] [facility] [phone] Pharmacy novelties sales representative name: [facility] Pharmacy novelties sales representative phone number: [phone] What medication are you calling in regards [...] Info) Description 08/25/2025 8:30 AM EDT Appointment [place] [id number] documented as of this encounter Visit Diagnoses Not on filedocumented in this encounter Additional Health Concerns Assessment Noted Time PHQ-2 Depression Total Score: 1 05/20/19 24 12:36 PM EST documented as of this encounter Care Teams Trigonometry Teacher Relationship Specialty Start Date End Date Surinder Rocha MD [address] [place] [address] PCP - General Family Medicine 10/05/19 documented as of this encounter
--- OUTSIDE RECORDS SUMMARY | 2025-04-20 18:38 | XMS_ITS | Encounter Summary ---
Author Organization [facility] Address [address] [place] [address] Care Team Providers Care Agitator Operator Name Role Phone Surinder Rocha MD Primary Care Provider [phone] Encounter Details Date Type Department Care Team (Late st Contact Info) Description 02/24/2025 Telephone [facility] [address] [address] Rosalba Irizarry RN Social History Tobacco Use [...] Info) Description 08/25/2025 8:30 AM EDT Appointment [facility] [address] [id number] documented as of this encounter Visit Diagnoses Not on filedocumented in this encounter Additional Health Concerns Assessment Noted Time PHQ-2 Depression Total Score: 1 05/20/19 24 12:36 PM EST documented as of this encounter Care Teams Agitator Operator Relationship Specialty Start Date End Date Surinder Rocha [place] [address] PCP - General Family Medicine 10/05/19 documented as of this encounter
--- OUTSIDE RECORDS SUMMARY | 2025-04-20 18:38 | XMS_ITS | Encounter Summary ---
Author Organization [facility] yste Address [address] [place] [address] Care Team Providers Care Ship Painter Helper Name Role Phone Surinder Rocha MD Primary Care Provider [phone] Reason for Visit * Reason Comments Med Refill Encounter Details Date Type Department Care Team (Late st Contact Info) Description 04/06/2025 Refill [facility] FAMILY MEDICINE [address] [place] [address] Jeanette Hooks, MAXX 210 [facility] [address] [place], [place] [phone] Moderate persistent asthma with exacerbation Social History [...] or training? Not on file Preferred Language Bengali 08/18/2023 PHQ-2 Answer Date Recorded Patient Health [...] Info) Description 08/25/2025 8:30 [place] [address] documented as of this encounter Visit Diagnoses Diagnosis Moderate persistent asthma with exacerbation Unspecified asthma, with exacerbation documented in this encounter Additional Health Concerns Assessment Noted Time PHQ-2 Depression Total Score: 1 05/20/19 24 12:36 PM EST documented as of this encounter Care Teams Ship Painter Helper Relationship Specialty Start Date End Date Surinder Rocha MD [address] [place] [address] PCP - General Family Medicine 10/05/19 documented as of this encounter
--- OUTSIDE RECORDS SUMMARY | 2025-04-20 18:39 | XMS_ITS | Encounter Summary ---
Author Organization [facility] Address [address] [place] [address] Care Team Providers Care Vacuum Evaporation Operator Name Role Phone Surinder Rocha MD Primary Care Provider [phone] Encounter Details Date Type Department Care Team (Late st Contact Info) Description 03/14/2025 Results Follow-Up [facility] FAMILY MEDICINE [address] [place] [address] Surinder Rocha MD [address] [place], [place] [id number] Social History Tobacco Use Types Packs/Day Years [...] or training? Not on file Preferred Language Bolivian 08/18/2023 PHQ-2 Answer Date Recorded Patient Health [...] Info) Description 08/25/2025 8:30 AM EDT Appointment [place] [id number] documented as of this encounter Visit Diagnoses Not on filedocumented in this encounter Additional Health Concerns Assessment Noted Time PHQ-2 Depression Total Score: 1 05/20/19 24 12:36 PM EST documented as of this encounter Care Teams Vacuum Evaporation Operator Relationship Specialty Start Date End Date Sur[place] [address] PCP - General Family Medicine 10/05/19 documented as of this encounter
--- OUTSIDE RECORDS SUMMARY | 2025-04-20 18:39 | XMS_ITS | Clinical Summary ---
Author Organization [facility] Address [address] [place] [address] Care Team Providers Care District Fire Management Officer Name Role Phone Surinder Rocha MD [...] complete this topic Insurance ANTH Care Teams District Fire Management Officer Relationship Specialty Start Date End Date Surinder Rocha MD [address] [place] [address] PCP - General Family Medicine 08/02/22
--- OUTSIDE RECORDS SUMMARY | 2025-04-20 18:39 | XMS_ITS | Encounter Summary ---
[facility] Address [address] [place] [address] Care Team Providers Care Otolaryngology Physician Name Role Phone Surinder Rocha MD Primary Care Provider [phone] Reason for Visit * Reason Comments Med Refill Encounter Details Date Type Department Care Team (Late st Contact Info) Description 03/21/2025 Refill [facility] FAMILY MEDICINE [address] [place] [address] Taylor Tabor PA [address] [place], [place] [id number] Muscle spasm Social History Tobacco Use Types [...] or training? Not on file Preferred Language Japanese 08/18/2023 PHQ-2 Answer Date Recorded Patient Health [...] Info) Description 08/25/2025 8:30 [place] [address] documented as of this encounter Visit Diagnoses Diagnosis Muscle spasm Spasm of muscle documented in this encounter Additional Health Concerns Assessment Noted Time PHQ-2 Depression Total Score: 1 05/20/19 24 12:36 PM EST documented as of this encounter Care Teams Otolaryngology Physician Relationship Specialty Start Date End Date Surinder Rocha MD 210 [place] [address] PCP - General Family Medicine 10/05/19 documented as of this encounter
--- OUTSIDE RECORDS SUMMARY | 2025-04-20 18:39 | XMS_ITS | Encounter Summary ---
[facility] Address [address] [place] [address] Care Team Providers Care Applications Programmer Analyst Name Role Phone Surinder Rocha MD Primary Care Provider [phone] Reason for Visit * Reason Onset Date Comments MEDICATION REQUEST 03/09/2025 Encounter Details Date Type Department Care Team (Late st Contact Info) Description 03/09/2025 Telephone [facility] FAM[facility] MEDICINE [address] [place] [address] Surinder Rocha MD [address] [place], [place] [id number] MEDICATION REQUEST Social History Tobacco Use Types [...] or training? Not on file Preferred Language Danish 08/18/2023 PHQ-2 Answer Date Recorded Patient Health [...] Chase Relationship: Self Best call back number: [phone] What medication are you requesting: PERDIUM What are your current symptoms: PAINFUL URINATION How long have you been experiencing symptoms: THREE DAYS Have you had these symptoms before: [x] Yes [] No Have you been treated for these symptoms before: [x] Yes [] No If a prescription is needed, what is your preferred pharmacy and phone number: [facility]- [place], [place] - [address] [phone] [facility] [phone] FX Additional notes: THE PATIENT STATES THAT [...] Info) Description 08/25/2025 8:30 AM EDT Appointment [address] [address] documented as of this encounter Visit Diagnoses Not on filedocumented in this encounter Additional Health Concerns Assessment Noted Time PHQ-2 Depression Total Score: 1 05/20/19 24 12:36 PM EST documented as of this encounter Care Teams Applications Programmer Analyst Relationship Specialty Start Date End Date Surinder Rocha MD [address] [place] [address] PCP - General Family Medicine 10/05/19 documented as of this encounter
--- OUTSIDE RECORDS SUMMARY | 2025-04-20 18:39 | XMS_ITS | Clinical Summary ---
[facility] Organization [facility] Address [address] [place] [address] Care Team Providers Care Blood Splatter Analyst Name Role Phone Surinder Rocha MD Primary Care Provider [phone] Allergies Active Allergy Reactions Criticality Noted Date [...] Use in each nostril as directed Active zolpidem (AMBIEN) 10 MG tabletIndications :Insomnia, [...] mouth Daily. 30 tablet 3 025 Active levothyroxine (SYNTHROID, LEVOTHROID) 125 MCG tabletIndications :Acquired hypothyroidism Take 1 tablet by mouth once daily 90 tablet 025 Active fluticasone (FLONASE) 50 MCG/ACT [...] hours PRN 20 tablet 1 025 Active phenazopyridine (Pyridium) 100 MG tablet Take 1 tablet by mouth 3 (Three) Times a Day As Needed for Bladder Spasms. 30 tablet 025 Active levoFLOXacin (LEVAQUIN) 500 MG tablet Take 1 tablet by mouth Daily. 5 tablet 025 Active Fluticasone-Salme terol (ADVAIR/WIXELA) 100-50 MCG/ACT DISKUSIndications :Moderate persistent asthma with exacerbation INHALE 1 DOSE BY MOUTH TWICE DAILY 60 each 025 Active pantoprazole (Protonix) 40 MG EC tabletIndications :Gastroesophageal reflux disease, unspecified whether esophagitis present Take 1 tablet by mouth Daily. 90 tablet 1 025 Active pantoprazole (Protonix) 40 MG EC tabletIndications :Gastroesophageal reflux disease, unspecified whether esophagitis present Take 1 tablet by mouth 2 (Two) Times a Day. 180 tablet 1 025 2024 Discontinued(R eorder) Fluticasone-Salme terol (ADVAIR/WIXELA) 100-50 MCG/ACT DISKUSIndications :Moderate persistent asthma with exacerbation INHALE 1 DOSE BY MOUTH TWICE DAILY 60 each 025 2024 Discontinued Active Problems Problem Noted Date Diagnosed Date [...] Encounters Date Type Department Care Team Description 04/13/2025 Telephone [facility] MEDICINE [address] [place] [address] Surinder Rocha MD PHARMACY CALL 04/06/[address] [facility] [address] [place] [address] Jeanette Hooks PA-C Moderate persistent asthma with exacerbation 03/21/[address] [facility] [address] [place] [address] Taylor Tabor PA Muscle spasm 03/18/[address] [facility] [address] [place] [address] Surinder Rocha MD Appointment 03/14/2025 Results Follow-Up [facility] [address] [place] [address] Surinder Rocha MD 03/09/2025 12:00 PM EST Office Visit [facility] [address] [place] [address] Surinder Rocha MD Coronary artery disease of [place] artery of [place] heart with stable angina pectoris (Primary Dx); Dysuria; Acute cystitis without hematuria; Observed sleep apnea 03/09/[address] [facility] [address] [place] [address] Surinder Rocha MD MEDICATION REQUEST 03/09/[address] [facility] [address] [place] [address] Surinder Rocha MD Med Management 03/09/2025 Travel 03/05/[address] [facility] [address] [facility] [place] [address] Jeanette Hooks, MAXX Moderate persistent asthma with exacerbation 03/01/2025 [facility] [address] [facility] [place] [address] Surinder Rocha MD PHARMACY CALLS 02/25/2025 [facility] [address] [facility] [place] [address] Surinder Rocha MD New Med Request 02/25/2025 [facility] [address] [address] Rosalba Irizarry RN 02/24/2025 [facility] [address] [facility] [place] [address] Surinder Rocha MD Med Management 02/24/2025 [facility] [address] [address] Rosalba Irizarry, RN 02/23/2025 9:26 AM EDT - 02/23/2025 11:59 PM EDT Hospital Encounter [facility] [address] [address] Abnormal mammogram Discharge Disposition: Home or Self Care 02/23/2025 9:21 AM EDT - 02/23/2025 11:59 PM EDT Hospital Encounter [facility] 1760 [facility] [address] [address] Abnormal mammogram Discharge Disposition: Home or Self Care 02/22/2025 10:45 AM EDT Office Visit [facility] [address] [facility] [place] [address] Surinder Rocha MD Dysuria (Primary Dx); Acute non-recurrent maxillary sinusitis; Seasonal allergic rhinitis, unspecified trigger; Moderate persistent asthma with exacerbation 02/22/[address] [facility] FAMILY MEDICINE [address] [place] [address] Jeanette Hooks PA-C Moderate persistent asthma with exacerbation 02/22/2025 Travel 02/15/2025 Results Follow-Up [facility] CANCER RISK ASSESSMENT [address] [place] [address] [place] 02/09/2025 Results Follow-Up [facility] MEDICINE [address] [place] [address] Surinder Rocha MD 02/09/[address] [facility] [address] [place] [address] Surinder Rocha MD PAPERWORK 02/08/2025 10:51 AM EDT - 02/08/2025 11:59 PM EDT Hospital Encounter [facility]TRASOUND [place] [address] [place] [address] Abnormal mammogram Discharge Disposition: Home or Self Care 02/08/2025 7:55 AM EDT - 02/08/2025 11:59 PM EDT Hospital Encounter [facility] MAMMOGRAPHY [place] [address] [place] [address] Abnormal mammogram Discharge Disposition: Home or Self Care 02/08/2025 Travel 02/07/[address] [facility] [address] [place] [address] Jeanette Hooks PA-C Moderate persistent asthma with exacerbation; Acquired hypothyroidism 02/04/2025 9:00 AM EDT - 02/04/2025 11:59 PM EDT Hospital Encounter [facility] XRAY AT [place] [address] [place] [address] Surinder Rocha MD Right foot pain; Left foot pain Discharge Disposition: Home or Self Care 02/04/2025 8:30 AM EDT Office Visit [facility] MED[facility]INE [address] [place] [address] Surinder Rocha MD Fall in home, [...] Known Problems Maternal Grandmother Anemia Mother Cielo tarik Asthma Mother Cielo tarik Breast cancer Mother Cielo tarik Ovarian cancer Mother Cieloalice chase Alcohol abuse Other 1 uncle Heart [...] or training? Not on file Preferred Language Comoran 08/18/2023 PHQ-2 Answer Date Recorded Patient Health [...] Info) Description 08/25/2025 8:30 AM EDT Appointment [facility] [address] [facility] [address] [place] [id number] Health Maintenance Due Date Last Done Comments Annual Gynecologic Pelvic an d Breast Exam 1965 COLOGUARD 2009 COLON CANCER SCREENING 5 YEA R SIGMOIDOSCOPY [address] COLONOGRAPHY 2009 FECAL OCCULT BLOOD TEST 2009 FIT Testing (1 year) 2009 ANNUAL PHYSICAL 09/27/2015 LIPID PANEL 04/07/2025 04/07/2024, 11/2023, 07/31/2022, Additional history exists MAMMOGRAM 02/23/2027 02/23/2025, 11/2024, 12/03/2023, Additional history exists COLONOSCOPY 03/31/2033 [...] Date/Time Associated Diagnosis Comments SCANNED - IMAGING 03/25/2025 SCANNED - IMAGING 03/22/2025 SCANNED - IMAGING [...] Routine 02/23/2025 11:03 AM EDT Abnormal mammogram NON-MANAGER DIGITAL CYTOLOGY, [facility] (PETRA, COR, MAD, [place]AME) [...] to Health Maintenance Results * IMAGING SCANNED (03/25/2025) Only the most recent of7 resultswithin the time period is included. Anatomical [...] / Unknown 03/09/2025 11:36 AM EST 03/09/2025 Comment:UC Narrative [facility] ([facility]ULATORY) - 03/14/2025 3:07 AM EST Performed at: 01 - [facility] [place] [place] [address] [facility], [place], [place] [id number] Blintze Roller: Vernon Garcia PhD, Phone: [phone] Surinder Rocha MD MICROBIOLOGY - GENERAL ORDERABL ES Final Result Performing Organization Address City/[facility]/ZIP Co de Phone Number [facility] [address] [place] [address], [facility] [address] [place] [address], * (ABNORMAL) POCT urinalysis dipstick, automated (03/09/2025 11:20 AM EST) Only the most recent of2 resultswithin the time period is included. Color Yellow Yellow, Straw, Dark Yellow, Kaila [facility] Clarity, UA Clear Clear [facility] Specific [place] 1.015 1.005 - 1.030 [facility] pH, Urine 6.0 5.0 - 8.0 [facility] Leukocytes Moderate (2+)(A) Negative [facility] Nitrite, UA Positive(A) Negative [facility] Protein, POC Negative Negative mg/dL [facility] Glucose, UA Negative Negative mg/dL [facility] Ketones, UA Negative Negative [facility] Urobilinogen, UA Normal Normal, 0.2 E.U./dL [facility] Bilirubin Negative Negative [facility] Blood, UA Trace(A) Negative [facility] Lot Number [id number] [facility] Expiration Date 05-27-2026 [facility] Urine 03/09/2025 11:2 0 AM EST Surinder Rocha MD POINT OF CARE TEST ORDERABLES F inal Result [facility]
[address] [place] [address], * ECG Scan (03/02/2025) Only the most [...] during this procedure. us Nallely Handley MD [facility] US ORDERABLES Edited Resul t - Final [...] ORDERABLES Bijan vicente Result - Final * NON-MANAGER DIGITAL CYTOLOGY, [facility] (PETRA,COR,MAD,[facility]) (02/23/2025 10:43 AM [...] CD19, CD20, CD38, CD45, CD56, CD57, CD123, [place], and [place]. Interpretation performed by Dr. Lin. [...] Result [facility]
[address] [place] [address], [place] [phone] * (ABNORMAL) [facility] GENETIC RISK ASSESSMENT QUESTIONNAIRE - , (02/15/2025 9:55 AM EDT) Pareshemmanuellibra 13.4 [facility] NCCN NCCN met(A) [facility] Comment:High Risk Cancer Ris k Assessment 02/15/2025 9:55 AM EDT us Surinder Rocha MD GENETIC TESTING Final Result [facility]
[address] [place] [address], [place] [phone] * (ABNORMAL) US Breast Bilateral Limited (02/08/2025 [...] measuring 0.4 cm. us Nallely Handley MD IM US ORDERABLES Final Result * (ABNORMAL) Mammo [...] cancer or ovarian cancer on her current [facility] risk assessment questionnaire. The estimated lifetime [...] Surinder Rocha MD IMG MAMMOGRAPHY ORDERABLES Patience salinas Result * XR Foot 3+ View Bilateral [...] MD 02/09/2025 11:30 AM EDT Workstation ID: [id number] Narrative 02/09/2025 11:30 AM EDT XR FOOT [...] MD 02/09/2025 11:30 AM EDT Workstation ID: [id number] Surinder Rocha MD IMG DIAGNOSTIC IMAGING ORDERABL ES Final Result * (ABNORMAL) Lipid Panel (04/07/2024 10:43 AM EST) Pathologist [facility] Total Cholesterol 170 0 - [...] - 2024 3:09 AM EST Performed at: [address] [id number] Blintze Roller: Forrest Box MD, Phone: [phone] Patient Fasting: Y Surinder Rocha MD LAB BLOOD ORDERABLES Final Resu lt [facility] ([facility]) [address] [place] [address], [facility] [address] [place] [address], * IMAGING SCANNED (12/06/2023) [facility] CHART [facility] TABS Final Re sult * SCANNED - COLONOSCOPY (03/31/2023) Surinder Rocha MD CHART REVIEW TABS Final Resu lt * Hepatitis C Antibody (04/14/2019 10:48 AM EST) Pathologist [facility] Hep C Virus Ab 0.3 0.0 - 0.9 s/co ratio [facility] Comment: Negative: < 0.8 Indeterminate: 0.8 - 0.9 Positive: > 0.9 The CDC recommends that a positive HCV antibody result be followed up with a HCV Nucleic Acid Amplification test (761608). Blood 04/14/2019 10:4 8 AM EST 04/14/2019 Narrative [facility] ([facility]) - 04/17/2019 7:08 AM EST Performed at: 02 - [address] [id number] Blintze Roller: Vernon Garcia PhD, Phone: [phone] Surinder Rocha MD LAB BLOOD ORDERABLES Final Resu lt Performing Organization Address City/[facility] Co de Phone Number [facility] ([facility]) [address] [place] [address], [facility] [address] [place] [address], from Last 3 Months or Most Recently [...] Of Support Discussed With: Patient Care Teams Blood Splatter Analyst Relationship Specialty Start Date End Date Surinder Rocha MD [address] [place] [address] PCP - General Family Medicine 10/05/19
--- OUTSIDE RECORDS SUMMARY | 2025-04-20 18:39 | XMS_ITS | Encounter Summary ---
[facility] Address [address] [place] [address] Care Team Providers Care Senior Sales Executive Name Role Phone Surinder Rocha MD Primary Care Provider [phone] Encounter Details Date Type Department Care Team (Late st Contact Info) Description 09/09/2024 Results Follow-Up [facility] FAMILY MEDICINE [address] [place] [address] Surinder Rocha MD [address] [place], [place] [id number] Social History Tobacco Use Types Packs/Day Years [...] Info) Description 08/25/2025 8:30 AM EDT Appointment [place] [id number] documented as of this encounter Visit Diagnoses Not on filedocumented in this encounter Additional Health Concerns Assessment Noted Time PHQ-2 Depression Total Score: 1 05/20/19 24 12:36 PM EST documented as of this encounter Care Teams Senior Sales Executive Relationship Specialty Start Date End Date Surinder Rocha [place] [address] PCP - General Family Medicine 10/05/19 documented as of this encounter
--- OUTSIDE RECORDS SUMMARY | 2025-04-20 18:39 | XMS_ITS | Encounter Summary ---
Author Organization [facility] Address [address] [place] [address] Care Team Providers Care Embroidery Machine Operator Name Role Phone Surinder Rocha MD Primary Care Provider [phone] Reason for Referral * Consultation (Routine) - Closed Specialty Diagnoses / Procedures Referred By Ezio harden Referred To Contact Podiatry Diagnoses Foot pain, bilateral Procedures NE OFFICE/OUTPATIENT NEW MODERATE MDM 45 MINUTES Surinder Rocha MD [address] [place] [address] Phone: tel: fax: Phong Evonne Alina, DPM [address] [place] [address] [place] [address] Phone: tel: fax: Referral ID Status Reason Start Date Expiration Date V isits Requested Visits Authorized [id number] Closed Specialty Services Required 03/21/2025 06/20/2026 1 1 Reason for Visit * Reason Onset Date Comments Appointment 03/18/2025 Encounter Details Date Type Department Care Team (Late st Contact Info) Description 03/18/2025 Telephone [facility] FAM[facility] MEDICINE [address] [place] [address] Surinder Rocha MD [address] [place] [address] [place] [address] Appointment Social History Tobacco Use Types Packs/Day [...] Hannah Chung - 03/18/2025 11:47 AM ESTSummary: funeral director and embalmer referral Cielo would like to have a referral placed to see a funeral director and embalmer. She would like to go [place]. documented in this encounter Plan of Treatment Upcoming Encounters Date Type Department Care Team (Late st Contact Info) Description 08/25/2025 8:30 [place] [address] documented as of this encounter Visit Diagnoses Diagnosis Foot pain, bilateral- Primary documented in this encounter Additional Health Concerns Assessment Noted Time PHQ-2 Depression Total Score: 1 05/20/19 24 12:36 PM EST documented as of this encounter Care Teams Embroidery Machine Operator Relationship Specialty Start Date End Date Surinder Rocha MD [address] [place] [address] PCP - General Family Medicine 10/05/19 documented as of this encounter
--- OUTSIDE RECORDS SUMMARY | 2025-04-20 18:39 | XMS_ITS | Encounter Summary ---
[facility] Organization [facility] Address [address] [place] [address] Care Team Providers Care Electric Sign Assembler Name Role Phone Surinder Rocha MD Primary Care Provider [phone] Encounter Details Date Type Department Care Team (Late st Contact Info) Description 11/25/2024 Results Follow-Up [facility] FAMILY MEDICINE [address] [place] [address] Surinder Rocha MD [address] [place], [place] [id number] Social History Tobacco Use Types Packs/Day Years [...] or training? Not on file Preferred Language Kuwaiti 08/18/2023 PHQ-2 Answer Date Recorded Patient Health [...] Info) Description 08/25/2025 8:30 AM EDT Appointment [place] [id number] documented as of this encounter Visit Diagnoses Not on filedocumented in this encounter Additional Health Concerns Assessment Noted Time PHQ-2 Depression Total Score: 1 05/20/19 24 12:36 PM EST documented as of this encounter Care Teams Electric Sign Assembler Relationship Specialty Start Date End Date Surinder Rocha [place] [address] PCP - General Family Medicine 10/05/19 documented as of this encounter
--- OUTSIDE RECORDS SUMMARY | 2025-04-20 18:39 | XMS_ITS | Encounter Summary ---
[facility] Address [address] [place] [address] Care Team Providers Care Core Man Name Role Phone Surinder Rocha MD Primary Care Provider [phone] Reason for Visit * Reason Comments Med Refill Encounter Details Date Type Department Care Team (Late st Contact Info) Description 07/13/2021 Refill [facility] FAMILY MEDICINE [address] [place] [address] Surinder Rocha MD [address] [place], [place] [id number] Gastroesophageal reflux disease, unspecified whether esophagitis present; [...] Info) Description 08/25/2025 8:30 AM EDT Appointment [facility] [address] [place], [place] [address] documented as of this encounter Visit Diagnoses Diagnosis Gastroesophageal reflux disease, unspecified whether esophagitis present Adjustment disorder with anxious mood Adjustment disorder with anxiety Idiopathic peripheral neuropathy Unspecified hereditary and idiopathic peripheral neuropathy Insomnia, unspecified type documented in this encounter Care Teams Core Man Relationship Specialty Start Date End Date Surinder Rocha MD [address] [place] [address] PCP - General Family Medicine 10/05/19 documented as of this encounter
--- OUTSIDE RECORDS SUMMARY | 2025-04-20 18:39 | XMS_ITS | Encounter Summary ---
[facility] Address [address] [place] [address] Care Team Providers Care Ophthalmic Dispenser Name Role Phone Surinder Rocha MD Primary Care Provider Reason for Visit * Reason Onset Date Comments Med Management 03/09/2025 Encounter Details Date Type Department Care Team (Late st Contact Info) Description 03/09/2025 Telephone [facility] FAMILY MEDICINE [address] [place] [address] Surinder Rocha MD [address] [place], [place] [id number] Med Management Social History Tobacco Use Types [...] or training? Not on file Preferred Language Macedonian 08/18/2023 PHQ-2 Answer Date Recorded Patient Health [...] PM EST Okay, I will send in [facility]. * Telephone Encounter - Kaila Sykes RegSched [...] Rep - 03/09/2025 12:06 PM EST [facility]er: [facility] [place], [place] - [address] [phone] [facility] [phone] Relationship: Pharmacy Best call back number: [phone] What was the call regarding: PHARMACY HAS [...] Info) Description 08/25/2025 8:30 AM EDT Appointment [facility] [address] [place] [address] documented as of this encounter Visit Diagnoses Not on filedocumented in this encounter Additional Health Concerns Assessment Noted Time PHQ-2 Depression Total Score: 1 05/20/19 24 12:36 PM EST documented as of this encounter Care Teams Ophthalmic Dispenser Relationship Specialty Start Date End Date Surinder Rocha MD [address] [place] [address] PCP - General Family Medicine 10/05/19 documented as of this encounter
--- OUTSIDE RECORDS SUMMARY | 2025-04-20 18:39 | XMS_ITS | Encounter Summary ---
[facility] Organization [facility] Address [address] [place] [address] Care Team Providers Care Rougher For Cement Name Role Phone Surinder Rocha MD Primary Care Provider [phone] Encounter Details Date Type Department Care Team [...] or training? Not on file Preferred Language Puerto Rican 08/18/2023 PHQ-2 Answer Date Recorded Patient Health [...] Info) Description 08/25/2025 8:30 AM EDT Appointment [address] [address] documented as of this encounter Visit Diagnoses Not on filedocumented in this encounter Additional Health Concerns Assessment Noted Time PHQ-2 Depression Total Score: 1 05/20/19 24 12:36 PM EST documented as of this encounter Care Teams Rougher For Cement Relationship Specialty Start Date End Date Surinder Rocha MD [address] [place] [address] PCP - General Family Medicine 10/05/19 documented as of this encounter
--- OUTSIDE RECORDS SUMMARY | 2025-04-20 18:40 | XMS_ITS | Encounter Summary ---
[facility] Address [address] [place] [address] Care Team Providers Care Special Forces Medical Sergeant Name Role Phone Surinder Rocha MD Primary Care Provider [phone] Reason for Visit * Reason Comments Med Refill Encounter Details Date Type Department Care Team (Late st Contact Info) Description 06/15/2020 Refill [facility] FAMILY MEDICINE [address] [place] [address] Surinder Rocha MD [address] [place], [place] [id number] Idiopathic peripheral neuropathy Social History Tobacco Use [...] Info) Description 08/25/2025 8:30 AM EDT Appointment [facility] [address] [facility] [address] [place] [address] documented as of this encounter Visit Diagnoses Diagnosis Idiopathic peripheral neuropathy Unspecified hereditary and idiopathic peripheral neuropathy documented in this encounter Additional Health Concerns Infection Onset Date Last Indicated Resolved Time COVID Screen (preop/placement) 08/19/2020 08/19/2020 08/19/2020 3:31 AM EDT documented as of this encounter Care Teams Special Forces Medical Sergeant Relationship Specialty Start Date End Date Surinder Rocha MD [address] [place] [address] PCP - General Family Medicine 10/05/19 documented as of this encounter
--- OUTSIDE RECORDS SUMMARY | 2025-04-20 18:41 | XMS_ITS | Encounter Summary ---
[facility] Organization [facility] Address [address] [place] [address] Care Team Providers Care 3D Designer Name Role Phone Surinder Rocha MD Primary Care Provider [phone] Reason for Visit * Reason Onset Date Comments Med Refill 11/09/2019 Encounter Details Date Type Department Care Team (Late st Contact Info) Description 11/09/2019 Refill [facility] FAMILY MEDICINE [address] [place] [phone] January Flores DO [address] [place], [place] [phone] Adjustment disorder with anxious mood; Insomnia, unspecified [...] AM EDT Appointment [facility] [address] [facility] [place] [address] [place], [place] [id number] documented as of this encounter Visit Diagnoses Diagnosis Adjustment disorder with anxious mood Adjustment disorder with anxiety Insomnia, unspecified type documented in this encounter Additional Health Concerns Infection Onset Date Last Indicated Resolved Time COVID Screen (preop/placement) 04/24/2020 04/24/2020 04/25/2020 1:35 AM EST COVID Screen (preop/placement) 08/19/2020 08/19/2020 08/19/2020 3:31 AM EDT documented as of this encounter Care Teams 3D Designer Relationship Specialty Start Date End Date Surinder Rocha MD [address] [place] [address] PCP - General Family Medicine 10/05/19 documented as of this encounter
--- OUTSIDE RECORDS SUMMARY | 2025-04-20 18:41 | XMS_ITS | Encounter Summary ---
[facility] [address] [place] [address] Care Team Providers Care Upper Shaper Name Role Phone Surinder Rocha MD Primary Care Provider [phone] Reason for Visit * Reason Comments Med Refill Encounter Details Date Type Department Care Team (Late st Contact Info) Description 11/06/2019 Refill [facility] FAMILY MEDICINE [address] [place] [phone] January Flores DO [address] [place] [address] Insomnia, unspecified type Social History Tobacco Use [...] Info) Description 08/25/2025 8:30 AM EDT Appointment [facility] [address] [place] [address] [place] [id number] documented as of this encounter Visit Diagnoses Diagnosis Insomnia, unspecified type documented in this encounter Additional Health Concerns Infection Onset Date Last Indicated Resolved Time COVID Screen (preop/placement) 04/24/2020 04/24/2020 04/25/2020 1:35 AM EST COVID Screen (preop/placement) 08/19/2020 08/19/2020 08/19/2020 3:31 AM EDT documented as of this encounter Care Teams Upper Shaper Relationship Specialty Start Date End Date Surinder Rocha MD [address] [place] [address] PCP - General Family Medicine 10/05/19 documented as of this encounter
--- OUTSIDE RECORDS SUMMARY | 2025-04-20 18:41 | XMS_ITS | Encounter Summary ---
Author Organization [facility] Address [address] [place] [address] Care Team Providers Care Mastic Worker Name Role Phone Surinder Rocha MD Primary Care Provider [phone] Reason for Visit * Reason Comments Med Refill Encounter Details Date Type Department Care Team (Late st Contact Info) Description 10/07/2019 Refill [facility] FAMILY MEDICINE [address] [place] [address] Surinder Rocha MD [address] [place], [place] [phone] Complicated migraine Social History Tobacco Use Types [...] Info) Description 08/25/2025 8:30 AM EDT Appointment [facility] [address] [place] [address] [place] [id number] documented as of this encounter Visit Diagnoses Diagnosis Complicated migraine Migraine, unspecified, without mention of intractable migraine without mention of status migrainosus documented in this encounter Additional Health Concerns Infection Onset Date Last Indicated Resolved Time COVID Screen (preop/placement) 04/24/2020 04/24/2020 04/25/2020 1:35 AM EST COVID Screen (preop/placement) 08/19/2020 08/19/2020 08/19/2020 3:31 AM EDT documented as of this encounter Care Teams Mastic Worker Relationship Specialty Start Date End Date Surinder Rocah MD [address] [place] [address] PCP - General Family Medicine 10/05/19 documented as of this encounter
== END 2025-04-19 23:59 | disposition home or self-care (01) ==
LOC: LAB.DROPOF 04-20 18:36
PROVIDERS: PCP Family Medicine; Visit Provider Nurse Practitioner
DX: R30.9 Painful micturition, unspecified (principal)
CPT/HCPCS: 87086

== ENCOUNTER 2025-04-22 08:19 | Emergency (ER) | payer MEDICAID, SELFPAY ==
--- OUTSIDE RECORDS SUMMARY | 2025-02-22 09:45 | XMS_ITS | Encounter Summary ---
[facility] [address] [place] [address] Care Team Providers Care Insurance Follow Up Representative Name Role Phone Surinder Rocha MD Primary Care Provider [phone] Reason for Visit * Reason Comments URI X 1 wk Urinary Tract Infection X 4 days ago Shortness of Breath Encounter Details Date Type Department Care Team (Late st Contact Info) Description 02/22/2025 10:45 AM EDT Office Visit [facility] [address] [place] [address] Surinder Rocha MD [address] [place], [place] [id number] Dysuria (Primary Dx); Acute non-recurrent maxillary sinusitis; [...] or training? Not on file Preferred Language Qatari 08/18/2023 PHQ-2 Answer Date Recorded Patient Health [...] breathing that is worse, will continue advair care home documented in this encounter Plan of Treatment Upcoming Encounters Date Type Department Care Team (Late st Contact Info) Description 08/25/2025 8:30 AM EDT Appointment [address] [place] [address] documented as of this encounter Procedures Procedure [...] 3:07 AM EDT Performed at: 01 - [facility] [id number] Liability Claims Representative: Vernon Garcia PhD, Phone: [phone] us Surinder Rocha MD MICROBIOLOGY - GENERAL ORDERABL ES Final Result Performing Organization Address City/[facility] Co de Phone Number [facility] [address] [place] [address], [place] [phone] [facility] [address] [place] [address], [place] [phone] * POCT urinalysis dipstick, automated (02/22/2025 10:42 AM EDT) Color Yellow Yellow, Straw, Dark Yellow, Akila [facility] Clarity, UA Clear Clear [facility] Specific [place] 1.010 1.005 - 1.030 [facility] pH, Urine 6.0 5.0 - 8.0 [facility] Leukocytes Negative Negative [facility] Nitrite, UA Negative Negative [facility] Protein, POC Negative Negative mg/dL [facility] Glucose, UA Negative Negative mg/dL [facility] Ketones, UA Negative Negative [facility] Urobilinogen, UA Normal Normal, 0.2 E.U./dL [facility] Bilirubin Negative Negative [facility] Blood, UA Negative Negative [facility] Lot Number [id number] [facility] Expiration Date 05-27-2026 [facility] Urine 02/22/2025 10:4 2 AM EDT Surinder Rocha MD POINT OF CARE TEST ORDERABLES F inal Result Performing Organization Address City/[facility] Co de Phone Number [facility]
[address] [place] [address], documented in this encounter Visit Diagnoses Diagnosis Dysuria- Primary Acute non-recurrent maxillary sinusitis Seasonal allergic rhinitis, unspecified trigger Moderate persistent asthma with exacerbation Unspecified asthma, with exacerbation documented in this encounter Additional Health Concerns Assessment Noted Time PHQ-2 Depression Total Score: 1 05/20/19 24 12:36 PM EST documented as of this encounter Care Teams Insurance Follow Up Representative Relationship Specialty Start Date End Date Surinder Rocha MD [facility] [place] [address] PCP - General Family Medicine 10/05/19 documented as of this encounter
--- OUTSIDE RECORDS SUMMARY | 2025-02-23 08:21 | XMS_ITS | Encounter Summary ---
[facility] Address [address] [place] [address] Care Team Providers Care Blast Setter Name Role Phone Surinder Rocha MD Primary Care Provider [phone] Reason for Visit * Diagnostic Imaging (Routine) - Pending Review Specialty Diagnoses / Procedures Referred By Contac t Referred To Contact Radiology Diagnoses Abnormal mammogram Procedures US Fine Needle Aspiration BX 1st Lesion US Fine Needle Aspiration BX 1ST Lesion Surinder Rocha MD [address] [facility] [place] [address] Phone: tel: fax: [facility] [address] [place] [address] Phone: tel: Referral ID Status Reason Start Date Expiration Date V isits Requested Visits Authorized [id number] Pending Review 02/08/2025 05/10/2026 1 1 Encounter Details Date Type Department Care Team (Latest Contact Info) Description 02/23/2025 9:21 AM EDT - 02/23/2025 11:59 PM EDT Hospital Encounter [facility] [address] [facility] [address] [place] [address] Abnormal mammogram Discharge Disposition: Home [...] or training? Not on file Preferred Language Filipino 08/18/2023 PHQ-2 Answer Date Recorded Patient Health [...] Info) Description 08/25/2025 8:30 AM EDT Appointment [facility] [address] [place] [address] documented as of this encounter Procedures Procedure Name Priority Date/Time Associated Diagnosis Comments US FINE NEEDLE ASPIRATION BX 1ST LESION Routine 02/23/2025 11:04 AM EDT Abnormal mammogram NON-MANAGER TECHNICAL CYTOLOGY, [facility] (PETRA, COR, MAD, MAAME) [...] during this procedure. us Nallely Handley MD [facility] [place] ORDERABLES Edited Resul t - Final * NON-MANAGER TECHNICAL CYTOLOGY, [facility] (PETRA,COR,MAD,MAAME) (02/23/2025 10:43 AM [...] CD19, CD20, CD38, CD45, CD56, CD57, CD123, [place], and Lambda. Interpretation performed by Dr. Lin. [...] Result [facility]
[address] [place] [address], documented in this encounter Visit Diagnoses Diagnosis [...] documented as of this encounter Care Teams Blast Setter Relationship Specialty Start Date End Date Surinder Rocha MD [address] [place] [address] PCP - General Family Medicine 10/05/19 documented as of this encounter
--- OUTSIDE RECORDS SUMMARY | 2025-02-23 08:26 | XMS_ITS | Encounter Summary ---
Author Organization [facility] Address [address] [place] [address] Care Team Providers Care Culture Manager Name Role Phone Surinder Rocha MD Primary Care Provider [phone] Reason for Referral * Diagnostic Imaging (Routine) - Pending Review Specialty Diagnoses / Procedures Referred By Contac t Referred To Contact Radiology Diagnoses Abnormal mammogram Procedures Mammo Post Device Placement Right Nallely Handley MD [address] [place] [address] Phone: tel: fax: Referral ID Status Reason Start Date Expiration Date V isits Requested Visits Authorized [id number] Pending Review 02/23/2025 05/25/2026 1 1 Reason for Visit * Diagnostic Imaging (Routine) - Pending Review Specialty Diagnoses / Procedures Referred By Contlen harden Referred To Contact Radiology Diagnoses Abnormal mammogram Procedures Mammo Post Device Placement Right Nallely Handley MD [address] [address] Phone: tel: fax: Referral ID Status Reason Start Date Expiration Date V isits Requested Visits Authorized [id number] Pending Review 02/23/2025 05/25/2026 1 1 Encounter Details Date Type Department Care Team (Latest Contact Info) Description 02/23/2025 9:26 AM EDT - 02/23/2025 11:59 PM EDT Hospital Encounter [facility] [address] [place] [address] Abnormal mammogram Discharge Disposition: Home or Self [...] or training? Not on file Preferred Language Kosovan 08/18/2023 PHQ-2 Answer Date Recorded Patient Health [...] BY MOUTH TWICE DAILY 60 each 02/08/2025 pantoprazole (Protonix) 40 MG EC tabletIndications:G astroesophageal [...] Info) Description 08/25/2025 8:30 AM EDT Appointment [address] [place] [id number] documented as of this encounter Procedures Procedure [...] documented as of this encounter Care Teams Culture Manager Relationship Specialty Start Date End Date Surinder Rocha MD [address] [place] [address] PCP - General Family Medicine 10/05/19 documented as of this encounter
--- OUTSIDE RECORDS SUMMARY | 2025-03-09 12:00 | XMS_ITS | Encounter Summary ---
[facility] Address [address] [place] [address] Care Team Providers Care Pony Rougher Name Role Phone Surinder Rocha MD Primary Care Provider [phone] Reason for Referral * Medical Care (Routine) - Closed Specialty Diagnoses / Procedures Referred By Contlen t Referred To Contact Diagnoses Observed sleep apnea Procedures Home Sleep Study Surinder Rocha MD [address] [facility] [place] [place] [address] Phone: tel: fax: [facility] [address] [place] [address] Phone: tel: fax: Referral ID Status Reason Start Date Expiration Date Visits Re quested Visits Authorized [id number] Closed 03/09/2025 06/08/2026 1 1 Reason for Visit * Reason Comments Hospital Follow Up Visit [facility] 03/03/25, H EART CATHRECORDS REQUESTED 03/03, no call made Encounter Details Date Type Department Care Team ([facility] Contact Info) Description 03/09/2025 12:00 PM EST Office Visit [facility] [address] [place] [address] Surinder Rocha MD [address] [place] [address] Coronary artery disease of [place] artery of [place] heart with stable angina pectoris (Primary Dx); [...] or training? Not on file Preferred Language Niuean 08/18/2023 PHQ-2 Answer Date Recorded Patient Health [...] some atypical chest pains Went to [facility] ER and was admittred Had [...] this visit: 1. Coronary artery disease of [place] artery of [place] heart with stable angina pectoris (Primary) 2. [...] Info) Description 08/25/2025 8:30 AM EDT Appointment [address] [place] [address] Scheduled Orders Name Type Priority Associated Diagnoses [...] 03/14/2025 3:07 AM EST Performed at: - [address] [id number] Statistics Professor: Vernon Garcia PhD, Phone: [phone] Surinder Rocha MD MICROBIOLOGY - GENERAL ORDERABL ES Final Result Performing Organization Address City/State/[facility] Co de Phone Number [facility] (AMBULATORY) [address] [id number], [facility] [address] [place] [address], * (ABNORMAL) POCT urinalysis dipstick, automated (03/09/2025 11:20 AM EST) Color Yellow Yellow, Straw, Dark Yellow, Kaila [facility] Clarity, UA Clear Clear [facility] Specific [place] 1.015 1.005 - 1.030 [facility] pH, Urine 6.0 5.0 - 8.0 [facility] Leukocytes Moderate (2+)(A) Negative [facility] Nitrite, UA Positive(A) Negative [facility] Protein, POC Negative Negative mg/dL [facility] Glucose, UA Negative Negative mg/dL [facility] Ketones, UA Negative Negative [facility] Urobilinogen, UA Normal Normal, 0.2 E.U./dL [facility] Bilirubin Negative Negative [facility] Blood, UA Trace(A) Negative [facility] Lot Number [id number] [facility] Expiration Date 05-27-2026 [facility] Urine 03/09/2025 11:2 0 AM EST us Surinder Rocha MD POINT OF CARE TEST ORDERABLES F inal Result [facility]
[address] [place] [address], documented in this encounter Visit Diagnoses Diagnosis Coronary artery disease of [place] artery of [place] heart with stable angina pectoris- Primary Dysuria Acute cystitis without hematuria Observed sleep apnea documented in this encounter Additional Health Concerns Assessment Noted Time PHQ-2 Depression Total Score: 1 05/20/19 24 12:36 PM EST documented as of this encounter Care Teams Pony Rougher Relationship Specialty Start Date End Date Surinder Rohca MD [address] [place] [address] [place] [address] PCP - General Family Medicine 10/05/19 documented as of this encounter
[2025-04-22] VITALS (7 sets, daily range): BP systolic 97–130; BP diastolic 53–76; PULSE 64–80; RESP 18; TEMP 37.1–37.3; O2SAT 90–99; BMI 40.7
--- OUTSIDE RECORDS SUMMARY | 2025-04-22 08:38 | XMS_ITS | Encounter Summary ---
[facility] Address [address] [place] [address] Care Team Providers Care Breakfast And Room Attendant Name Role Phone Surinder Rocha MD Primary Care Provider [phone] Reason for Visit * Reason Onset Date Comments PHARMACY CALLS 03/01/2025 Encounter Details Date Type Department Care Team (Late st Contact Info) Description 03/01/2025 Telephone [facility] FAMILY MEDICINE [address] [place] [address] Suirnder Rocha MD [address] [place], [place] [phone] PHARMACY CALLS Social History Tobacco Use Types [...] or training? Not on file Preferred Language Hebrew 08/18/2023 PHQ-2 Answer Date Recorded Patient Health [...] - 03/01/2025 9:31 AM EDT Pharmacy Name: [facility] - [place], [place] - [address] [phone] [facility] [phone] Pharmacy aircraft sales representative name: [facility] Pharmacy aircraft sales representative phone number: [phone] What medication are you calling in regards [...] Info) Description 08/25/2025 8:30 AM EDT Appointment [place] [id number] documented as of this encounter Visit Diagnoses Not on filedocumented in this encounter Additional Health Concerns Assessment Noted Time PHQ-2 Depression Total Score: 1 05/20/19 24 12:36 PM EST documented as of this encounter Care Teams Breakfast And Room Attendant Relationship Specialty Start Date End Date Surinder Rocha MD [address] [place] [address] PCP - General Family Medicine 10/05/19 documented as of this encounter
--- OUTSIDE RECORDS SUMMARY | 2025-04-22 08:38 | XMS_ITS | Encounter Summary ---
Author Organization [facility] Address [address] [place] [address] Care Team Providers Care Servicenow Administrator Developer Name Role Phone Surinder Rocha MD Primary Care Provider [phone] Encounter Details Date Type Department Care Team (Late st Contact Info) Description 02/25/2025 Telephone [facility] [address] [address] Rosalba Irizarry RN Social History Tobacco Use [...] or training? Not on file Preferred Language Welsh 08/18/2023 PHQ-2 Answer Date Recorded Patient Health [...] support given, verbalized understanding. Patient transferred to [facility] scheduling per request to warren clarke recommended follow-up documented in this encounter Plan of Treatment Upcoming Encounters Date Type Department Care Team (Late st Contact Info) Description 08/25/2025 8:30 AM EDT Appointment [address] [address] documented as of this encounter Visit Diagnoses Not on filedocumented in this encounter Additional Health Concerns Assessment Noted Time PHQ-2 Depression Total Score: 1 05/20/19 24 12:36 PM EST documented as of this encounter Care Teams Servicenow Administrator Developer Relationship Specialty Start Date End Date Surinder Rocha MD [address] [place] [address] PCP - General Family Medicine 10/05/19 documented as of this encounter
--- OUTSIDE RECORDS SUMMARY | 2025-04-22 08:38 | XMS_ITS | Encounter Summary ---
[facility] Address [address] [place] [address] Care Team Providers Care Exhibitions Curator Name Role Phone Surinder Rocha MD Primary Care Provider [phone] Reason for Visit * Reason Onset Date Comments New Med Request 02/25/2025 Encounter Details Date Type Department Care Team (Late st Contact Info) Description 02/25/2025 Telephone [facility] FAMILY MEDICINE [address] [place] [address] Surinder Rocha MD [address] [place], [place] [phone] New Med Request Social History Tobacco Use [...] - 02/25/2025 3:25 PM EDT Caller: Cielo Chsae Relationship: Self Best call back number: Telephone Information: What medication are you requesting: ALTERNATIVE TO amoxicillin-clavulanate (Augmentin ES-600) 600-42.9 MG/5ML suspension If a prescription is needed, what is your preferred pharmacy and phone number: [facility] [place] - [address] [phone] [facility] [phone] FX Additional notes: PATIENT WAS PRESCRIBED THIS ANTIBIOTIC A LIQUID FORM, BUT IT IS VERY HARD ON HER STOMACH. PATIENT IS WANTING TO KNOW IF A PILL FORM CAN BE CALLED IN INSTEAD documented in this encounter Plan of Treatment Upcoming Encounters Date Type Department Care Team (Late st Contact Info) Description 08/25/2025 8:30 AM EDT Appointment [place] [id number] documented as of this encounter Visit Diagnoses Not on filedocumented in this encounter Additional Health Concerns Assessment Noted Time PHQ-2 Depression Total Score: 1 05/20/19 24 12:36 PM EST documented as of this encounter Care Teams Exhibitions Curator Relationship Specialty Start Date End Date Surinder Rocha MD [address] [place] [address] PCP - General Family Medicine 10/05/19 documented as of this encounter
--- OUTSIDE RECORDS SUMMARY | 2025-04-22 08:38 | XMS_ITS | Encounter Summary ---
[facility] Address [address] [place] [address] Care Team Providers Care Tour Escort Name Role Phone Surinder Rocha MD Primary Care Provider [phone] Encounter Details Date Type Department Care Team (Late st Contact Info) Description 03/14/2025 Results Follow-Up [facility] FAMILY MEDICINE [address] [place] [address] Surinder Rocha MD [address] [place], [place] [phone] Social History Tobacco Use Types Packs/Day Years [...] or training? Not on file Preferred Language Northern Irish 08/18/2023 PHQ-2 Answer Date Recorded Patient Health [...] Info) Description 08/25/2025 8:30 AM EDT Appointment [place] [id number] documented as of this encounter Visit Diagnoses Not on filedocumented in this encounter Additional Health Concerns Assessment Noted Time PHQ-2 Depression Total Score: 1 05/20/19 24 12:36 PM EST documented as of this encounter Care Teams Tour Escort Relationship Specialty Start Date End Date Sur[place] [address] PCP - General Family Medicine 10/05/19 documented as of this encounter
--- OUTSIDE RECORDS SUMMARY | 2025-04-22 08:38 | XMS_ITS | Encounter Summary ---
[facility] [address] [place] [address] Care Team Providers Care Medical Liaison Name Role Phone Surinder Rocha MD Primary Care Provider [phone] Reason for Visit * Reason Comments Med Refill Encounter Details Date Type Department Care Team (Late st Contact Info) Description 03/21/2025 Refill [facility] FAMILY MEDICINE [address] [place] [address] Taylor Tabor PA [address] [place], [place] [phone] Muscle spasm Social History Tobacco Use Types [...] or training? Not on file Preferred Language Sinhala 08/18/2023 PHQ-2 Answer Date Recorded Patient Health [...] Info) Description 08/25/2025 8:30 [place] [address] documented as of this encounter Visit Diagnoses Diagnosis Muscle spasm Spasm of muscle documented in this encounter Additional Health Concerns Assessment Noted Time PHQ-2 Depression Total Score: 1 05/20/19 24 12:36 PM EST documented as of this encounter Care Teams Medical Liaison Relationship Specialty Start Date End Date Surinder Rocha MD [address] [place] [address] PCP - General Family Medicine 10/05/19 documented as of this encounter
--- OUTSIDE RECORDS SUMMARY | 2025-04-22 08:38 | XMS_ITS | Encounter Summary ---
Author Organization [facility] Address [address] [place] [address] Care Team Providers Care Sole Leather Cutting Machine Operator Name Role Phone Surinder Rocha MD Primary Care Provider [phone] Encounter Details Date Type Department Care Team [...] or training? Not on file Preferred Language Libyan 08/18/2023 PHQ-2 Answer Date Recorded Patient Health [...] Info) Description 08/25/2025 8:30 AM EDT Appointment [address] [address] documented as of this encounter Visit Diagnoses Not on filedocumented in this encounter Additional Health Concerns Assessment Noted Time PHQ-2 Depression Total Score: 1 05/20/19 24 12:36 PM EST documented as of this encounter Care Teams Sole Leather Cutting Machine Operator Relationship Specialty Start Date End Date Surinder Rocha MD [address] [place] [address] PCP - General Family Medicine 10/05/19 documented as of this encounter
--- OUTSIDE RECORDS SUMMARY | 2025-04-22 08:38 | XMS_ITS | Encounter Summary ---
Author Organization [facility] Address [address] [place] [address] Care Team Providers Care Utilization Reviewer Name Role Phone Surinder Rocha MD Primary Care Provider [phone] Reason for Visit * Reason Comments Med Refill Encounter Details Date Type Department Care Team (Late st Contact Info) Description 03/05/2025 Refill [facility] FAMILY MEDICINE [address] [place] [address] Jeanette Hooks, MAXX [address] [facility] [address] [place], [place] [phone] Moderate persistent asthma with exacerbation Social History [...] or training? Not on file Preferred Language Amharic 08/18/2023 PHQ-2 Answer Date Recorded Patient Health [...] Info) Description 08/25/2025 8:30 [place] [address] documented as of this encounter Visit Diagnoses Diagnosis Moderate persistent asthma with exacerbation Unspecified asthma, with exacerbation documented in this encounter Additional Health Concerns Assessment Noted Time PHQ-2 Depression Total Score: 1 05/20/19 24 12:36 PM EST documented as of this encounter Care Teams Utilization Reviewer Relationship Specialty Start Date End Date Surinder Rocha MD [address] [place] [address] PCP - General Family Medicine 10/05/19 documented as of this encounter
--- OUTSIDE RECORDS SUMMARY | 2025-04-22 08:38 | XMS_ITS | Encounter Summary ---
Author Organization [facility] y[facility] Address [address] [place] [address] Care Team Providers Care Linoleum Printer Name Role Phone Surinder Rocha MD Primary Care Provider [phone] Reason for Visit * Reason Comments Med Refill Encounter Details Date Type Department Care Team (Late st Contact Info) Description 04/06/2025 Refill [facility] FAMILY MEDICINE [address] [place] [address] Jeanette Hooks, MAXX 210 [facility] [place], [place] [phone] Moderate persistent asthma with exacerbation Social History [...] Info) Description 08/25/2025 8:30 [place] [address] documented as of this encounter Visit Diagnoses Diagnosis Moderate persistent asthma with exacerbation Unspecified asthma, with exacerbation documented in this encounter Additional Health Concerns Assessment Noted Time PHQ-2 Depression Total Score: 1 05/20/19 24 12:36 PM EST documented as of this encounter Care Teams Linoleum Printer Relationship Specialty Start Date End Date Surinder Rocha MD [address] [place] [address] PCP - General Family Medicine 10/05/19 documented as of this encounter
--- OUTSIDE RECORDS SUMMARY | 2025-04-22 08:38 | XMS_ITS | Encounter Summary ---
[facility] Address [address] [place] [address] Care Team Providers Care Clinical Transplant Coordinator Name Role Phone Surinder Rocha MD Primary Care Provider [phone] Encounter Details Date Type Department Care Team (Late st Contact Info) Description 02/09/2025 Results Follow-Up [facility] FAMILY MEDICINE [address] [place] [address] Surinder Rocha MD [address] [place], [place] [phone] Social History Tobacco Use Types Packs/Day Years [...] Info) Description 08/25/2025 8:30 AM EDT Appointment [place] [id number] documented as of this encounter Visit Diagnoses Not on filedocumented in this encounter Additional Health Concerns Assessment Noted Time PHQ-2 Depression Total Score: 1 05/20/19 24 12:36 PM EST documented as of this encounter Care Teams Clinical Transplant Coordinator Relationship Specialty Start Date End Date [place] [address] PCP - General Family Medicine 10/05/19 documented as of this encounter
--- OUTSIDE RECORDS SUMMARY | 2025-04-22 08:38 | XMS_ITS | Encounter Summary ---
Author Organization [facility] Address [address] [place] [address] Care Team Providers Care Carpenter Mine Name Role Phone Surinder Rocha MD Primary Care Provider [phone] Encounter Details Date Type Department Care Team (Late st Contact Info) Description 11/25/2024 Results Follow-Up [facility] FAMILY MEDICINE [address] [place] [address] Surinder Rocha MD [address] [place], [place] [phone] Social History Tobacco Use Types Packs/Day Years [...] Info) Description 08/25/2025 8:30 AM EDT Appointment [place] [id number] documented as of this encounter Visit Diagnoses Not on filedocumented in this encounter Additional Health Concerns Assessment Noted Time PHQ-2 Depression Total Score: 1 05/20/19 24 12:36 PM EST documented as of this encounter Care Teams Carpenter Mine Relationship Specialty Start Date End Date Sur[place] [address] PCP - General Family Medicine 10/05/19 documented as of this encounter
--- OUTSIDE RECORDS SUMMARY | 2025-04-22 08:38 | XMS_ITS | Clinical Summary ---
Author Organization [facility] Address [address] [place] [address] Care Team Providers Care Home Energy Consultant Supervisor Name Role Phone Surinder Rocha MD [...] complete this topic Insurance ANTH Care Teams Home Energy Consultant Supervisor Relationship Specialty Start Date End Date Surinder Rocha MD [address] [place] [address] PCP - General Family Medicine 08/02/22
--- OUTSIDE RECORDS SUMMARY | 2025-04-22 08:38 | XMS_ITS | Encounter Summary ---
[facility] Address [address] [place] [address] Care Team Providers Care Child Care Associate Name Role Phone Surinder Rocha MD Primary Care Provider [phone] Encounter Details Date Type Department Care Team (Late st Contact Info) Description 09/09/2024 Results Follow-Up [facility] FAMILY MEDICINE [address] [place] [address] Surinder Rocha MD [address] [place], [place] [phone] Social History Tobacco Use Types Packs/Day Years [...] 08/25/2025 8:30 AM EDT Appointment [place] [id number] documented as of this encounter Visit Diagnoses Not on filedocumented in this encounter Additional Health Concerns Assessment Noted Time PHQ-2 Depression Total Score: 1 05/20/19 24 12:36 PM EST documented as of this encounter Care Teams Child Care Associate Relationship Specialty Start Date End Date Surinder [place] [address] PCP - General Family Medicine 10/05/19 documented as of this encounter
--- OUTSIDE RECORDS SUMMARY | 2025-04-22 08:38 | XMS_ITS | Encounter Summary ---
Author Organization [facility] Address [address] [place] [address] Care Team Providers Care Concrete Floor Installer Name Role Phone Surinder Rocha MD Primary Care Provider [phone] Reason for Visit * Reason Onset Date Comments PHARMACY CALL 04/13/2025 Encounter Details Date Type Department Care Team (Late st Contact Info) Description 04/13/2025 Telephone [facility] FAMILY MEDICINE [address] [place] [address] Surinder Rocha MD [address] [place], [place] [phone] PHARMACY CALL Social History Tobacco Use Types [...] or training? Not on file Preferred Language Urdu 08/18/2023 PHQ-2 Answer Date Recorded Patient Health [...] - 04/13/2025 12:02 PM EST Pharmacy Name: [facility] Pharmacy truck sales representative name: BOSSMAN Pharmacy truck sales representative phone number: [phone] What medication are you calling in regards to: pantoprazole (Protonix) 40 MG EC tablet What question does the pharmacy have: PHARMACY STATED THAT PATIENT'S INSURANCE WILL ONLY COVER MEDICATION TAKEN ONCE DAILY NOT TWO TIMES A DAY documented in this encounter Plan of Treatment Upcoming Encounters Date Type Department Care Team (Late st Contact Info) Description 08/25/2025 8:30 AM EDT Appointment [place] [address] [address] [address] documented as of this encounter Visit Diagnoses Diagnosis Gastroesophageal reflux disease, unspecified whether esophagitis present documented in this encounter Additional Health Concerns Assessment Noted Time PHQ-2 Depression Total Score: 1 05/20/19 24 12:36 PM EST documented as of this encounter Care Teams Concrete Floor Installer Relationship Specialty Start Date End Date Surinder Rocha MD [address] [place], [place] [phone] PCP - General Family Medicine 10/05/19 documented as of this encounter
--- OUTSIDE RECORDS SUMMARY | 2025-04-22 08:38 | XMS_ITS | Encounter Summary ---
[facility] Address [address] [place] [address] Care Team Providers Care Metal Container Maker Name Role Phone Surinder Rocha MD Primary Care Provider [phone] Reason for Referral * Consultation (Routine) - Closed Specialty Diagnoses / Procedures Referred By Ezio harden Referred To Contact Podiatry Diagnoses Foot pain, bilateral Procedures MA OFFICE/OUTPATIENT NEW MODERATE MDM 45 MINUTES Surinder Rocha MD [address] [place] [address] Phone: tel: fax: Phong Evonne Alina, DPM [address] [place] [address] Phone: tel: fax: Referral ID Status Reason Start Date Expiration Date V isits Requested Visits Authorized [id number] Closed Specialty Services Required 03/21/2025 06/20/2026 1 1 Reason for Visit * Reason Onset Date Comments Appointment 03/18/2025 Encounter Details Date Type Department Care Team (Late st Contact Info) Description 03/18/2025 Telephone [facility] FAMILY MEDICINE [address] [place] [address] Surinder Rocha MD [address] [place] [address] [place] [address] Appointment Social History Tobacco Use Types Packs/Day [...] or training? Not on file Preferred Language Guamanian 08/18/2023 PHQ-2 Answer Date Recorded Patient Health [...] Hannah Chung - 03/18/2025 11:47 AM ESTSummary: surveying crew rodman referral Cielo would like to have a referral placed to see a surveying crew rodman. She would like to go [place]. documented in this encounter Plan of Treatment Upcoming Encounters Date Type Department Care Team (Late st Contact Info) Description 08/25/2025 8:30 [place] [address] documented as of this encounter Visit Diagnoses Diagnosis Foot pain, bilateral- Primary documented in this encounter Additional Health Concerns Assessment Noted Time PHQ-2 Depression Total Score: 1 05/20/19 24 12:36 PM EST documented as of this encounter Care Teams Metal Container Maker Relationship Specialty Start Date End Date Surinder Rocha MD [address] [place] [address] PCP - General Family Medicine 10/05/19 documented as of this encounter
--- OUTSIDE RECORDS SUMMARY | 2025-04-22 08:38 | XMS_ITS | Encounter Summary ---
Author Organization [facility] yste Address [address] [place] [address] Care Team Providers Care Foreign Language Interpreter Name Role Phone Surinder Rocha MD Primary Care Provider [phone] Reason for Visit * Reason Comments Med Refill Encounter Details Date Type Department Care Team (Late st Contact Info) Description 02/22/2025 Refill [facility] FAMILY MEDICINE [address] [place] [address] Jeanette Hooks, MAXX [address] [facility] [place] [address] Moderate persistent asthma with exacerbation Social History [...] Info) Description 08/25/2025 8:30 [place] [address] documented as of this encounter Visit Diagnoses Diagnosis Moderate persistent asthma with exacerbation Unspecified asthma, with exacerbation documented in this encounter Additional Health Concerns Assessment Noted Time PHQ-2 Depression Total Score: 1 05/20/19 24 12:36 PM EST documented as of this encounter Care Teams Foreign Language Interpreter Relationship Specialty Start Date End Date Surinder Rocha MD [address] [place] [address] PCP - General Family Medicine 10/05/19 documented as of this encounter
--- OUTSIDE RECORDS SUMMARY | 2025-04-22 08:38 | XMS_ITS | Encounter Summary ---
Author Organization [facility] ystem Address [address] [place] [address] Care Team Providers Care Insulation Board Calender Operator Name Role Phone Surinder Rocha MD Primary Care Provider [phone] Encounter Details Date Type Department Care Team (Late st Contact Info) Description 02/24/2025 Telephone [facility] [address] [address] Rosalba Irizarry RN Social History Tobacco Use [...] or training? Not on file Preferred Language Greenlandic 08/18/2023 PHQ-2 Answer Date Recorded Patient Health [...] Info) Description 08/25/2025 8:30 AM EDT Appointment [facility] [address] [id number] documented as of this encounter Visit Diagnoses Not on filedocumented in this encounter Additional Health Concerns Assessment Noted Time PHQ-2 Depression Total Score: 1 05/20/19 24 12:36 PM EST documented as of this encounter Care Teams Insulation Board Calender Operator Relationship Specialty Start Date End Date Surinder Rocha MD [place] [address] PCP - General Family Medicine 10/05/19 documented as of this encounter
--- OUTSIDE RECORDS SUMMARY | 2025-04-22 08:38 | XMS_ITS | Encounter Summary ---
[facility] Address [address] [place] [address] Care Team Providers Care Claim Service Representative Name Role Phone Surinder Smiley MD Primary Care Provider [phone] Reason for Visit * Reason Onset Date Comments Med Management 02/24/2025 Encounter Details Date Type Department Care Team (Late st Contact Info) Description 02/24/[address] [facility] FAMILY MEDICINE [address] [place] [address] Surinder Smiley MD [address] [place], [place] [id number] Med Management Social History Tobacco Use Types [...] or training? Not on file Preferred Language Albanian 08/18/2023 PHQ-2 Answer Date Recorded Patient Health [...] Info) Description 08/25/2025 8:30 AM EDT Appointment [facility] [address] [facility] [address] [place] [id number] documented as of this encounter Visit Diagnoses Not on filedocumented in this encounter Additional Health Concerns Assessment Noted Time PHQ-2 Depression Total Score: 1 05/20/19 24 12:36 PM EST documented as of this encounter Care Teams Claim Service Representative Relationship Specialty Start Date End Date Surinder Smiley MD [address] [place] [address] PCP - General Family Medicine 10/05/19 documented as of this encounter
--- OUTSIDE RECORDS SUMMARY | 2025-04-22 08:39 | XMS_ITS | Clinical Summary ---
[facility] Address [address] [place] [address] Care Team Providers Care Minibus Driver Name Role Phone Surinder Rocha MD Primary Care Provider [phone] Allergies Active Allergy Reactions Criticality Noted Date [...] Type Department Care Team Description 04/13/2025 Telephone [facility] MEDICINE [address] [place] [address] Surinder Rocha MD PHARMACY CALL 04/06/2025 Refill [facility] [address] [place] [address] Jeanette Hooks PA-C Moderate persistent asthma with exacerbation 03/21/2025 Refill [facility] [address] [place] [address] Taylor Tabor PA Muscle spasm 03/18/2025 Telephone [facility] [address] [place] [address] Surinder Rocha MD Appointment 03/14/2025 Results Follow-Up [facility] [address] [place] [address] Surinder Rocha MD 03/09/2025 12:00 PM EST Office Visit [facility] [address] [place] [address] Surinder Rocha MD 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 (Primary Dx); Dysuria; Acute cystitis without hematuria; Observed sleep apnea 03/09/2025 Telephone [facility] [address] [place] [address] Surinder Rocha MD MEDICATION REQUEST 03/09/2025 Telephone [facility] [address] [place] [address] Surinder Rocha MD Med Management 03/09/2025 Travel 03/05/2025 Refill [facility] [address] [facility] [place] [address] Jeanette Hooks, MAXX Moderate persistent asthma with exacerbation 03/01/2025 [facility] [address] [facility] [place] [address] Surinder Rocha MD PHARMACY CALLS 02/25/2025 [facility] [address] [facility] [place] [address] Surinder Rocha MD New Med Request 02/25/2025 [facility] [address] [address] Rosalba Irizarry RN 02/24/2025 [facility] [address] [facility] [place] [address] Surinder Rocha MD Med Management 02/24/2025 [facility] [address] [address] Rosalba Irizarry, RN 02/23/2025 9:26 AM EDT - 02/23/2025 11:59 PM EDT Hospital Encounter [facility] [address] [address] Abnormal mammogram Discharge Disposition: Home or Self Care 02/23/2025 9:21 AM EDT - 02/23/2025 11:59 PM EDT Hospital Encounter [facility] 1760 [facility] [address] [address] Abnormal mammogram Discharge Disposition: Home or Self Care 02/22/2025 10:45 AM EDT Office Visit [facility] [address] [facility] [place] [address] Surinder Rocha MD Dysuria (Primary Dx); Acute non-recurrent maxillary sinusitis; Seasonal allergic rhinitis, unspecified trigger; Moderate persistent asthma with exacerbation 02/22/2025 Refill [facility] FAMILY MEDICINE [address] [place] [address] Jeanette Hooks PA-C Moderate persistent asthma with exacerbation 02/22/2025 Travel 02/15/2025 Results Follow-Up [facility] CANCER RISK ASSESSMENT [address] [place] [address] WayneCa 02/09/2025 Results Follow-Up [facility] FAMILY MEDICINE [address] [place] [address] Surinder Rocha MD 02/09/2025 Telephone [facility] FAMILY MEDICINE [address] [place] [address] Surinder Rocha MD PAPERWORK 02/08/2025 10:51 AM EDT - 02/08/2025 11:59 PM EDT Hospital Encounter [facility]OUND [place] [address] [place] [address] Abnormal mammogram Discharge Disposition: Home or Self Care 02/08/2025 7:55 AM EDT - 02/08/2025 11:59 PM EDT Hospital Encounter [facility]AMMOGRAPHY [place] [address] [place] [address] Abnormal mammogram Discharge Disposition: Home or Self Care 02/08/2025 Travel 02/07/2025 Refill [facility] FAMILY MEDICINE [address] [place] [address] Jeanette Hooks PA-C Moderate persistent asthma with exacerbation; Acquired hypothyroidism 02/04/2025 9:00 AM EDT - 02/04/2025 11:59 PM EDT Hospital Encounter [facility]RAY [facility] [place] [address] [place] [address] Surinder Rocha MD Right foot pain; Left foot pain Discharge Disposition: Home or Self Care 02/04/2025 8:30 AM EDT Office Visit [facility] FAMILY MEDICINE [address] REJI [...] or training? Not on file Preferred Language Palestinian 08/18/2023 PHQ-2 Answer Date Recorded Patient Health [...] Description 08/25/2025 8:30 AM EDT Appointment [facility] [address] [facility] [address] [place] [phone] Health Maintenance Due Date Last Done Comments [...] Routine 02/23/2025 11:03 AM EDT Abnormal mammogram NON-VENTILATING ENGINEER CYTOLOGY, [facility] (PETRA, COR, MAD, [...] AM EST Performed at: 01 - [facility] [place] [address] [facility], [place], [place] [id number] Foxer: Vernon Garcia PhD, Phone: [phone] Surinder Rocha MD MICROBIOLOGY - GENERAL ORDERABL ES Final Result Performing Organization Address City/[facility]/ZIP Co de Phone Number [facility] [address] [place] [address], [facility] [address] [place] [address], * (ABNORMAL) POCT urinalysis dipstick, automated (03/09/2025 11:20 AM EST) Only the most recent of2 resultswithin the time period is included. Color Yellow Yellow, Straw, Dark Yellow, Kaila [facility] Clarity, UA Clear Clear [facility] Specific [place] 1.015 1.005 - 1.030 [facility] pH, Urine 6.0 5.0 - 8.0 [facility] Leukocytes Moderate (2+)(A) Negative [facility] Nitrite, UA Positive(A) Negative [facility] Protein, POC Negative Negative mg/dL [facility] Glucose, UA Negative Negative mg/dL [facility] Ketones, UA Negative Negative [facility] Urobilinogen, UA Normal Normal, 0.2 E.U./dL [facility] Bilirubin Negative Negative [facility] Blood, UA Trace(A) Negative [facility] Lot Number [id number] [facility] Expiration Date 05-27-2026 [facility] Urine 03/09/2025 11:2 0 AM EST Surinder Rocha MD POINT OF CARE TEST ORDERABLES F inal Result [facility]
[address] [place] [address], * ECG Scan (03/02/2025) Only the most [...] during this procedure. us Nallely Handley MD [facility] US ORDERABLES Edited Resul [...] ORDERABLES Bijan vicente Result - Final * NON-VENTILATING ENGINEER CYTOLOGY, [facility] (PETRA,COR,MAD,MAAME) (02/23/2025 10:43 [...] CD20, CD38, CD45, CD56, CD57, CD123, [place], and [place]. Interpretation performed by Dr. Lin. [...] AM EDT 02/23/2025 11:42 AM EDT us Nalelly Handley MD PATHOLOGY/CYTOLOGY ORDERABLES Final Result [facility]
[address] [place] [address], [place] [phone] * (ABNORMAL) [facility] GENETIC RISK ASSESSMENT QUESTIONNAIRE - , (02/15/2025 9:55 AM EDT) Pareshemmanuellibra 13.4 [facility] NCCN NCCN met(A) [facility] Comment:High Risk Cancer Ris k Assessment 02/15/2025 9:55 AM EDT us Surinder Rocha MD GENETIC TESTING Final Result [facility]
[address] [place] [address], [place] [phone] * (ABNORMAL) US Breast Bilateral Limited (02/08/2025 [...] cancer or ovarian cancer on her current [facility] risk assessment questionnaire. The estimated lifetime [...] MD 02/09/2025 11:30 AM EDT Workstation ID: [id number] Narrative 02/09/2025 11:30 AM EDT XR FOOT [...] MD 02/09/2025 11:30 AM EDT Workstation ID: [id number] Surinder Rocha MD IMG DIAGNOSTIC IMAGING ORDERABL ES Final Result * (ABNORMAL) Lipid Panel (04/07/2024 10:43 AM EST) Pathologist [facility] Total Cholesterol 170 0 - 200 mg/dL [...] 2024 3:09 AM EST Performed at: [address] [id number] Fox[place]: Forrest Box MD, Phone: [phone] Patient Fasting: Y Surinder Rocha MD LAB BLOOD ORDERABLES Final Resu lt [facility] ([facility]) [address] [place] [address], [facility] [address] [place] [address], * IMAGING SCANNED (12/06/2023) [facility] CH[facility] RE[facility] TABS Final Re sult * SCANNED - COLONOSCOPY (03/31/2023) Surinder Rocha MD CHART REVIEW TABS Final Resu lt * Hepatitis C Antibody (04/14/2019 10:48 AM EST) Pathologist [facility] Hep C Virus Ab 0.3 0.0 - 0.9 s/co ratio [facility] Comment: Negative: < 0.8 Indeterminate: 0.8 - 0.9 Positive: > 0.9 The CDC recommends that a positive HCV antibody result be followed up with a HCV Nucleic Acid Amplification test (004194). Blood 04/14/2019 10:4 8 AM EST 04/14/2019 Narrative [facility] ([facility]) - 04/17/2019 7:08 AM EST Performed at: 02 - [address] [id number] Foxer: Vernon Garcia PhD, Phone: [phone] Surinder Rocha MD LAB BLOOD ORDERABLES Final Resu lt Performing Organization Address City/[facility] Co de Phone Number [facility] ([facility]) [address] [place] [address], [facility] [address] [place] [address], from Last 3 Months or Most Recently [...] Of Support Discussed With: Patient Care Teams Minibus Driver Relationship Specialty Start Date End Date Surinder Rocha MD [place] [place] [address] PCP - General Family Medicine 10/05/19
--- OUTSIDE RECORDS SUMMARY | 2025-04-22 08:39 | XMS_ITS | Encounter Summary ---
Author Organization [facility] Address [address] [place] [address] Care Team Providers Care Tying Machine Operator Lumber Name Role Phone Surinder Rocha MD Primary Care Provider [phone] Encounter Details Date Type Department Care Team [...] or training? Not on file Preferred Language American 08/18/2023 PHQ-2 Answer Date Recorded Patient Health [...] Info) Description 08/25/2025 8:30 AM EDT Appointment [address] [address] documented as of this encounter Visit Diagnoses Not on filedocumented in this encounter Additional Health Concerns Assessment Noted Time PHQ-2 Depression Total Score: 1 05/20/19 24 12:36 PM EST documented as of this encounter Care Teams Tying Machine Operator Lumber Relationship Specialty Start Date End Date Surinder Rocha MD [address] [place] [address] PCP - General Family Medicine 10/05/19 documented as of this encounter
--- OUTSIDE RECORDS SUMMARY | 2025-04-22 08:39 | XMS_ITS | Encounter Summary ---
[facility] Address [address] [place] [address] Care Team Providers Care Engine Lathe Operator Name Role Phone Surinder Rocha MD Primary Care Provider [phone] Reason for Visit * Reason Onset Date Comments Med Management 03/09/2025 Encounter Details Date Type Department Care Team (Late st Contact Info) Description 03/09/2025 Telephone [facility] FAMILY MEDICINE [address] [place] [address] Surinder Rocha MD [address] [place], [place] [id number] Med Management Social History Tobacco Use Types [...] or training? Not on file Preferred Language Chinese 08/18/2023 PHQ-2 Answer Date Recorded Patient Health [...] PM EST Okay, I will send in [facility]. * Telephone Encounter - Kaila Sykes [...] Rep - 03/09/2025 12:06 PM EST Caller: [facility] - [place], [place] - [address] [phone] [facility] [phone] Relationship: Pharmacy Best call back number: [phone] What was the call regarding: PHARMACY HAS [...] 8:30 AM EDT Appointment [facility] [address] [place] [address] documented as of this encounter Visit Diagnoses Not on filedocumented in this encounter Additional Health Concerns Assessment Noted Time PHQ-2 Depression Total Score: 1 05/20/19 24 12:36 PM EST documented as of this encounter Care Teams Engine Lathe Operator Relationship Specialty Start Date End Date Surinder Rocha MD [address] [place] [address] PCP - General Family Medicine 10/05/19 documented as of this encounter
--- OUTSIDE RECORDS SUMMARY | 2025-04-22 08:39 | XMS_ITS | Data Portability ---
Author Organization [facility] [place] [facility] Address [address] [facility] [place] [address] Care Team Providers Care Sausage Wrapper Name Role Phone BALJIT DAVID Primary Care Provider Assessment No assessment recorded. Plan of Treatment Reminders Order Date Submit Date Provider Last Modified By Organization Details Last Modified Time Details Appointments None recorded. Lab None recorded. Referral None recorded. Procedures None recorded. Surgeries None recorded. Imaging None recorded. Medication Orders betametha sone valerate 0.1 % topical ointment 2021 022 [facility] [place], [address], 2 12:06:15 Compound Premarin Nasal Wakeman 2019 020 INTERFACE [employer] [employer], [address], [place], [address], 0 13:46:10 meclizine 25 mg chewable tablet 2019 020 INTERFACE [facility] [place], [address], 0 13:43:15 Pepcid 20 mg tablet 2018 019 [email or web address] [facility] [place], [address], 9 09:40:43 Bactrim DS 800 mg-160 mg tablet 2018 019 INTERFACE [facility] [place], [address], 9 08:44:50 Xyzal 5 mg tablet 2018 019 INTERFACE [facility] [place], [address], 9 08:44:46 Patient TargetsNo targets recorded. Patient Instructions Encounter Date Encounter Id Patient Instructions Last Modified By Organization Details Last Modified Time 03/15/2019 [id number] 1. Bactrim DS 800-160mg PO BID for [...] two with Dr. Liang for continued monitoring. [facility] Not available 03/15/2019 09:01:36 04/07/2019 [id number] 1. Laryngoscopy performed ; clinical photos obtained. [...] follow-up. [email or web address] Not available 04/07/2019 08:52:06 04/20/2020 [id number] dizziness: care instructions [email or web address] Not available 04/20/2020 [...] follow-up. mckay Not available 04/20/2020 13:33:31 04/20/2020 [id number] dizziness: care instructions lexy Not available 04/20/2020 13:16:46 hearing loss: ca re instructions lexy Not available 04/20/2020 13:16:47 11/07/2021 [id number] It was a dante van seeing this [...] scan of sinuses. Recheck 3-4 months at [place] office We reviewed the pertinent anatomy and [...] ast No observ ation record ed. [email or web address] [facility] [address] [facility], [place], [address], 12/09/2023 16:26:50 Result Notes None recorded. Problems Name Problem SNOMED Code Status Onset Date Resolution Date Notes Provider Name and Address Organization Details Recorded Time Allergic rhinitis 22407538 Active 2015 From Automated Load;Provi rin: Tamar Liang;St atus: Active Not Available [facility] 6 05:46:04 Deviated nasal septum 998964997 Active 2015 From Automated Load;Provi rin: Tamar Liang;St atus: Active Not Available [facility] 6 05:46:04 Dizziness and giddiness 027199637 Active 2015 From Automated Load;Provi rin: Tamar Liang;St atus: Active Not Available [facility] 6 05:46:04 Sensorine ural hearing loss 10208272 Active 2015 Provider: Tamar Liang; atus: Active Not Available [facility] 6 05:46:04 Sensorine ural hearing loss of bilateral ears 760168710 Active 2015 From Automated Load;Provi rin: Tamar Liang; atus: Active Not Available [facility] 6 05:46:04 Chronic cystitis 47790953 Active 2015 From Automated Load;Provi rin: Gary Toro Jr;Sta tus: Active Not Available [facility] 6 05:46:04 Dysuria 28759200 Active 2015 From Automated Load;Provi rin: Gary Toro Jr;Sta tus: Active Not Available [facility] 6 05:46:04 Increased frequency of urination 708934783 Active 2015 From Automated Load;Provi rin: Gary Toro Jr;Sta tus: Active Not Available [facility] 6 05:46:04 Problem Notes None recorded. Procedures Surgical History Date Name Laterality Status Provider Name and Address Organization Details Recorded Time 11/08/19 22 Binocular Microscopy completed Janell Cavanaugh [facility] 11/07/2021 11:38:25 09/15/19 21 Binocular Microscopy cancelled DAKOTA CHOU MD [facility] [place], [address], [facility] 09/13/2020 17:05:00 09/15/19 21 Cerumen removal - Instruments, Unilateral cancelled DAKOTA CHOU MD [facility] [place], [address], [facility] 09/13/2020 17:05:00 04/20/20 20 Tympanogram completed UGO SURESH AUD [address] [place], [address], [facility] 04/20/2020 13:15:51 04/20/20 20 Audiogram completed UGO SURESH, AUD [address] [place], [address], [facility] 04/20/2020 13:15:49 04/20/20 20 [place] completed UGO SURESH, AUD [address] [place], [address], [facility] 04/20/2020 13:16:31 04/20/20 20 Binocular Microscopy completed DAKOTA CHOU MD [address] [place], [address], [facility] 04/20/2020 13:30:50 04/20/20 20 Cerumen removal - Instruments, Unilateral completed DAKOTA CHOU MD [address] [place], [address], [facility] 04/20/2020 13:30:12 04/07/20 19 Laryngoscopy Flex completed Loyda Nicolas [facility] 04/07/2019 08:45:25 03/05/20 19 Tympanogram completed UGO SURESH, AUD [address] [place], [address], [facility] 03/05/2019 15:18:06 03/05/20 19 Audiogram completed UGO SURESH, AUD [address] [place], [address], [facility] 03/05/2019 15:18:04 09/26/19 19 Ears/Nose/Throat Surgery completed Lidia Robison [facility] 03/05/2019 14:57:32 Joint Replacement completed Wanda Vega [facility] 08/06/2017 09:52:17 Other completed Wanda Vega [facility] 08/06/2017 09:52:47 [facility] 03/05[facility]2019 14:47:12 [facility] 03/05/2019 14:47:35 Imaging Results None recorded. Procedure Notes None recorded. Medical Equipment None Reported. Allergies Allergen ID Allergen Name Allergen Category Reaction Reaction Severity Criticality Documentation Date Start Date Code Code System Note Provider Name and Address Organization Details Recorded Time 795403 Cymbalta medicatio n Not available Not available Not available 03/28/20162013 97372 4 RxNorm Comme nt: Creat ed By: Butle r [place] e;Cre ated Date: 05/02 9:21: 34 AM; Not Available [facility] 6 12:43:11 [id number] Lyrica medicatio n other Not available Not available 03/29/20162011 50170 1 RxNorm React ion: LANG LONGORIA ING; Comme nt: Creat ed By: Jerica Peoples sa;Cr eated Date: 2011 7:30: 01 AM; Not Available [facility] 6 04:38:16 500278 latex environme nt,medica tion Not available Not available Not available 03/29/20162010 32698 91 RxNorm Comme nt: Creat ed By: Delfina Siddiqi is;Cr eated Date: 2010 12:00 :48 PM; Not Available [facility] 6 05:28:45 Medications Name Sig Start Date Stop Date Status Note LastModified by Organization Details LastModified Time binaxnow covid-19 ag card home test kit active Not Available Not Available Not Available eq sinus 12-hour 120mg tab TAKE 1 TABLET BY MOUTH TWICE DAILY NEEDED FOR CONGESTI ON active Not Available Not Available No t Available Compound Premarin Nasal Wakeman 25mg/30m l- 3 sprays in affected nostril [...] Not Available No t Available Fluarix Quad 8450-9489 (PF) 60 mcg (15 mcg x 4)/0.5 mL IM syringe 03/05 completed Not Available Not Available Not Available Shingrix (PF) 50 mcg/0.5 mL intramuscu lar suspension , kit 03/05 completed Not Available Not Available Not Available Fluzone Quad (PF) 60 mcg (15 mcg x 4)/0.5 mL IM syringe 03/15 completed Not Available Not Available Not Available Fluzone Quad 5163-8571 (PF) 60 mcg (15 mcg x 4)/0.5 [...] Address Organization Details Last Updated DateTime 2 639921. 12 g 42.6 kg/m2 170.18 cm 98.9 [degF] 98 % 88 /min 131/93 mm[Hg] [facility] 10:56:36 Date Recorded Body height Body mass index (BMI) Body weight Heart rate Oxygen saturation Body temperature Systolic And Diastolic Provider Name and Address Organization Details Last Updated DateTime 9 170.18 cm 0 kg/m2 4.54 g 98 /min 99 % 97.6 [degF] 132/84 mm[Hg] [facility] 9 08:06:05 Date Recorded Body height Body mass index (BMI) Body weight Body temperature Heart rate Systolic And Diastolic Provider Name and Address Organization Details Last Updated DateTime 9 170.18 cm 35.5 kg/m2 852302. 31 g 97.5 [degF] 90 /min 105/70 mm[Hg] Jayne Multani [facility] 9 08:00:42 Date Recorded Body height Body mass index (BMI) Body weight Body temperature Heart rate Oxygen saturation Systolic And Diastolic Provider Name and Address Organization Details Last Updated DateTime 0 170.18 cm 37 kg/m2 322315. 8 g 97.4 [degF] 86 /min 94 % 123/77 mm[Hg] Allison Fox [facility] 0 12:53:25 Social History Question Answer Notes LastModified by Organizat ion Details LastModified Time Tobacco Smoking Status Never Smoker [facility] 08/06/2017 09:51:59 How Much Tobacco Do You Chew? None [email or web address] Information not available 03/05/2019 What Was The Date Of Your Most Recent Tobacco Screening? 09/24/2017 Information n ot available 06/22/2019 How Much Tobacco Do You Smoke? No [email or web address] Information not available 03/05/2019 Sex: Unknown Functional Status Question Answer Note LastModified by Organizat ion Details LastModified Time What is your level of alcohol consumption? None [email or web address] Information not available 08/06/2017 Do you or have you ever used smokeless tobacco? Never used smokeless tobacco [email or web address] Information not available 03/05/2019 Mental Status None [...] ICD10 Code Diagnosis IMO Codes Diagnosis Note [id number] JAMISON FRANCIS MD [address] [address] 08/06/2017 09:35:10 08/06/2017 10:20:27 Keratoconjunctivitis sicca, not specified as Sj gren's 99432925 H16.223 she has ongoing worsening dry mouth [...] dose makes her sleepy. she is on group home amitriptyl ine at bed time, 50 mg po qhs. This would make her dry also but we might need to change it to some other medication to help her sleep. [id number] JAMISON FRANCIS MD RHEUMATOL OGY [address] [address] 09/24/2017 08:35:13 09/24/2017 09:30:09 Keratoconjunctivitis sicca, not specified as Sj gren's 98219136 H16.223 Chronic and with negative studies. Normal [...] dose makes her sleepy. she is on longwall shearer operator amitriptyl ine at bed time, 50 mg po qhs. Low salt and no sugar diet is the way to go. Achilles tendinitis 1165 4001 M76.61 M76.62 she has rather severe bilateral chronic achilles tendinopat hy with posterior heel spurs. I would suggest to avoid steroid injections at the site due to risk for tendon rupture. Local care, PT and use of voltaren. [id number] TAMAR LIANG MD [place] [facility] CLOSED [address] [place] [address] 03/05/2019 14:18:58 03/09/2019 08:17:22 Ear pressure sensation 025431836 H93.8X9 Eczema of external auditory canal 06517730 H60.549 - L>>R Nasal vestibulitis 32281 000 J34.89 - Bilaterall y R>>L Cellulitis of face 2001 L03.211 - Upper lip and nasal labial folds Sensorineu ral hearing loss of bilateral ears 517587256 H90.3 - Audiogram 03/05/19: Type A tymps bilaterall y. Right moderate to severe SNHL and Left moderate SNHL [id number] KRISTA DOMÍNGUEZ [place] [facility] CLOSED [address] [place] [address] 03/05/2019 15:07:29 03/05/2019 16:07:49 Sensorineural hearing loss of bilateral ears 093699800 H90.3 Bilateral earache 936320 003 H92.03 Bilateral tinnitus 23334 95029 102 H93.13 [id number] REGINO REYES APRN [place] [facility] CLOSED [address] [place] [address] 03/15/2019 08:00:06 03/17/2019 14:39:46 Eczema of external auditory canal 83083925 H60.543 - L>R - 03/15/19: EAC's and TM's clear Nasal vestibulitis 77532 000 J34.89 - Bilateral - slow improvemen t Cellulitis of face 2001 L03.211 - Upper lip and nasal labial folds - slow improvemen t - allergic vs viral vs staph Ear pressu re sensation 937425191 H93.8X3 - L>R Sensorineu ral hearing loss of bilateral ears 119621690 H90.3 - Audiogram 03/05/19: Type A tymps bilaterall y. Right moderate to severe SNHL and Left moderate SNHL Dysfunctio n of bilateral eustachian tubes 2601399210 717114 H69.93 Posterior rhinorrhea 758 82070 R09.82 - chronic PND - AR vs VMR On examina tion - macroglossia 845724302 K14.8 [id number] MD REJI FRANCO E[facility] [address] [place] [address] 04/07/2019 07:55:48 04/12/2019 09:57:05 Nasal vestibulitis 62939791 J34.89 - resolving Cellulitis of face 2001 L03.211 - Upper lip and nasal labial folds resolving Sensorineu ral hearing loss of bilateral ears 352003073 H90.3 - Audiogram 03/05/19: Type A tymps bilaterall y. Right moderate to severe SNHL and Left moderate SNHL Skin ulcer of nose 89583 3000 J34.0 Migraine 36100645 G43.90 9 Dysphagia 53364158 R13.1 0 Feeling of lump in throat 698217707 F45.8 Dysfunctio n of bilateral eustachian tubes 5881167490 521030 H69.93 Ear pressu re sensation 971674348 H93.8X9 Laryngopha ryngeal reflux 761802103 K21.9 Hiatal hernia 31652613 K 44.9 [id number] DAKOTA CHOU MD [place] [facility] CLOSED [address] [place] [address] 04/20/2020 12:45:41 04/20/2020 13:49:38 Nasal vestibulitis 35667648 J34.89 - resolving Cellulitis of face 2001 L03.211 - Upper lip and nasal labial folds resolving Sensorineu ral hearing loss of bilateral ears 885176102 H90.3 - Audiogram 03/05/19: Type A tymps bilaterall y. Right moderate to severe SNHL and Left moderate SNHL Skin ulcer of nose 16407 3000 J34.0 Migraine 59474241 G43.90 9 Dysphagia 07033766 R13.1 0 Feeling of lump in throat 469912184 F45.8 Dysfunctio n of bilateral eustachian tubes 8163593091 480980 H69.93 Ear pressu re sensation 259852328 H93.8X9 Laryngopha ryngeal reflux 197922911 K21.9 Hiatal hernia 79242279 K 44.9 Patulous e ustachian tube 55860482 H69.03 -SUSPECT BILATERAL, START PREMARIN NASAL SPRAY. Impacted c erumen of bilateral ears 8916114866 390814 H61.23 -CLEANED 04/20/20 Dizziness 223246101 R42 -04/20/20 DIOGENES HALLPIKES NORMAL. [id number] KRISTA DOMÍNGUEZ [facility] [place] [facility] CLOSED [address] [place] [address] 04/20/2020 13:02:07 04/20/2020 14:02:38 Sensorineural hearing loss of bilateral ears 819948119 H90.3 Bilateral tinnitus 94937 44817 102 H93.13 Dizziness and giddiness 533968853 R42 [id number] DAKOTA CHOU MD [place] [facility] [address] [place] [address] 11/07/2021 10:50:36 11/07/2021 11:43:02 Sensorineural hearing loss of bilateral ears 231372224 H90.3 - Audiogram 03/05/19: Type A tymps bilaterall y. Right moderate to severe SNHL and Left moderate SNHL Dysfunctio n of bilateral eustachian tubes 2352691482 118165 H69.93 Eczema of external auditory canal 97352012 H60.549 - 11/07/2021 - LEFT WORSE ; Betamethas one Valerate cream prescribed Retraction of tympanic membrane 37941787 H73.899 - 11/07/2021 - left sided History of surgery 47001 5003 Z98.890 - Sinus surgery- Tonsillect johana Examination of ear 34965 0007 Z01.10 -BILATERAL Bilateral earache 812928 003 H92.03 - 11/07/2021 - intermitte nt Obstructiv e sleep apnea syndrome 86455835 G47.33 CONTINUE CPAP Health Concerns Section Related Observation LastModified by Organization Detai ls LastModified Time None Recorded Concern Status LastModified by Organization Details LastModified Time None Recorded Advance Directives Directive None Recorded Payers Insurance Date Sequence Insurance Name Policy Number Policy Hairston Covered Member ID Hairston Member ID Guarantor Name 12/14/2023 1 [place] [id number] Cielo Chase [id number] Cielo Chase Notes Date Note Type [...] bilateral tinnitus for several years. Yolanda aggarwal [facility] 03/31/2019 08:41:09 04/07/2019 text/html Cielo [...] is doing well otherwise. TAMAR LIANG MD [address] [place] [address], [address], [facility] 04/07/2019 08:52:22 04/20/2020 text/html This patient returns for recheck of EARS. Since last visit patient reports no change in symptoms with flonase. SHE REPORTS EAR PRESSURE, HEARING HER BREATHING, DIZZINESS WITH BENDING OVER, AND SOME EARACHES IN THE COLD. 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 ARTHRITIS, FIBROMYALGIA, GERD, ECZEMA, S/P [facility]PTO [facility] 09/25/18 DR. 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 LIANG: Cielo returns today in [...] is doing well otherwise. DAKOTA CHOU MD [address] [place] [address], [address], [facility] 04/20/2020 13:43:08 11/07/2021 text/html This [...] sleep apnea. 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, [address], [place] [facility] 11/08/2021 17:08:25 OBGyn Episode No OBEpisode recorded.
--- OUTSIDE RECORDS SUMMARY | 2025-04-22 08:39 | XMS_ITS | Encounter Summary ---
[facility] Address [address] [place] [address] Care Team Providers Care Shot Blast Equipment Operator Name Role Phone Surinder Rocha MD Primary Care Provider [phone] Reason for Visit * Reason Comments Med Refill Encounter Details Date Type Department Care Team (Late st Contact Info) Description 07/13/2021 Refill [facility] [address] [place] [id number] Surinder Rocha MD [address] [place], [place] [address] Gastroesophageal reflux disease, unspecified whether esophagitis present; [...] Info) Description 08/25/2025 8:30 AM EDT Appointment [facility] [address] [place], [place] [id number] documented as of this encounter Visit Diagnoses Diagnosis Gastroesophageal reflux disease, unspecified whether esophagitis present Adjustment disorder with anxious mood Adjustment disorder with anxiety Idiopathic peripheral neuropathy Unspecified hereditary and idiopathic peripheral neuropathy Insomnia, unspecified type documented in this encounter Care Teams Shot Blast Equipment Operator Relationship Specialty Start Date End Date Surinder Rocha MD [address] [place] [address] PCP - General Family Medicine 10/05/19 documented as of this encounter
--- OUTSIDE RECORDS SUMMARY | 2025-04-22 08:39 | XMS_ITS | Encounter Summary ---
Author Organization [facility] [address] [place] [address] Care Team Providers Care Cotton Ginner Name Role Phone Surinder Rocha MD Primary Care Provider [phone] Reason for Visit * Reason Onset Date Comments MEDICATION REQUEST 03/09/2025 Encounter Details Date Type Department Care Team (Late st Contact Info) Description 03/09/2025 Telephone [facility] [address] [place] [address] Surinder Rocha MD [address] [place], [place] [address] MEDICATION REQUEST Social History Tobacco Use Types [...] Chase Relationship: Self Best call back number: [phone] What medication are you requesting: PERDIUM What are your current symptoms: PAINFUL URINATION How long have you been experiencing symptoms: THREE DAYS Have you had these symptoms before: [x] Yes [] No Have you been treated for these symptoms before: [x] Yes [] No If a prescription is needed, what is your preferred pharmacy and phone number: [facility]- [place], [place] - [address] [phone] [facility] [phone] FX Additional notes: THE PATIENT STATES THAT [...] Info) Description 08/25/2025 8:30 AM EDT Appointment [address] [address] documented as of this encounter Visit Diagnoses Not on filedocumented in this encounter Additional Health Concerns Assessment Noted Time PHQ-2 Depression Total Score: 1 05/20/19 24 12:36 PM EST documented as of this encounter Care Teams Cotton Ginner Relationship Specialty Start Date End Date Surinder Rocha MD [address] [place] [address] PCP - General Family Medicine 10/05/19 documented as of this encounter
--- OUTSIDE RECORDS SUMMARY | 2025-04-22 08:39 | XMS_ITS | Encounter Summary ---
[facility] [address] [place] [address] Care Team Providers Care Sewer Pipe Offbearer Name Role Phone Surinder Rocha MD Primary Care Provider [phone] Reason for Visit * Reason Comments Med Refill Encounter Details Date Type Department Care Team (Late st Contact Info) Description 06/15/2020 Refill [facility] [address] [place] [address] Surinder Rocha MD [address] [place], [place] [id number] Idiopathic peripheral neuropathy Social History Tobacco Use [...] 8:30 AM EDT Appointment [facility] [address] [facility] [address] [place] [address] documented as of this encounter Visit Diagnoses Diagnosis Idiopathic peripheral neuropathy Unspecified hereditary and idiopathic peripheral neuropathy documented in this encounter Additional Health Concerns Infection Onset Date Last Indicated Resolved Time COVID Screen (preop/placement) 08/19/2020 08/19/2020 08/19/2020 3:31 AM EDT documented as of this encounter Care Teams Sewer Pipe Offbearer Relationship Specialty Start Date End Date Surinder Rocha MD [address] [place] [address] PCP - General Family Medicine 10/05/19 documented as of this encounter
--- NOTE | 2025-04-22 08:40 | CT_ITS ---
FINAL REPORT TECHNIQUE: After the administration of oral and intravenous contrast, axial images were obtained through the abdomen and pelvis by computed tomography. The study was performed with techniques to keep radiation dose as low as reasonably achievable, (ALARA). Individual dose reduction techniques using automated exposure control or adjustment of mA and/or kV according to the patient's size were employed. CLINICAL HISTORY: LLQ abd pain COMPARISON: 12/28/2022 FINDINGS: Abdomen: Scarring is noted at the lung bases. The liver is homogeneous. The gallbladder is surgically absent. The spleen, pancreas, and adrenal glands are unremarkable. There are benign cysts in both kidneys measuring up to 4.4 cm. There is a small lymph node measuring 7 mm adjacent to the inferior epigastric vessels on image 89 of series 3. Focal region of metastatic adenopathy not excluded. Pelvis: There is a segment of abnormal mucosal thickening involving the proximal sigmoid colon measuring 5 cm in length. There is mild surrounding stranding. This finding is well-seen on images 94 and 95 series 3. The appendix is unremarkable. Urinary bladder is unremarkable. IMPRESSION: Segmental narrowing of the proximal sigmoid colon with surrounding stranding concerning for segmental colitis or neoplasm. Lower endoscopy is highly recommended to evaluate for possible neoplasm. Small lymph node adjacent to the inferior epigastric vessels could represent focal region of metastatic adenopathy. Reviewed, Interpreted and Dictated by Chuy Wright MD Transcribed by [place] Cui Authenticated and . [facility]
--- OUTSIDE RECORDS SUMMARY | 2025-04-22 08:40 | XMS_ITS | Encounter Summary ---
[facility] [address] [place] [address] Care Team Providers Care Varnishing Machine Operator Name Role Phone Surinder Rocha MD Primary Care Provider [phone] Reason for Visit * Reason Onset Date Comments Med Refill 11/09/2019 Encounter Details Date Type Department Care Team (Late st Contact Info) Description 11/09/2019 Refill [facility] [address] [place] [phone] January Flores DO [address] [place], [place] [id number] Adjustment disorder with anxious mood; Insomnia, unspecified [...] EDT Appointment [facility] [address] [facility] [address] [place], [place] [address] documented as of this encounter Visit Diagnoses Diagnosis Adjustment disorder with anxious mood Adjustment disorder with anxiety Insomnia, unspecified type documented in this encounter Additional Health Concerns Infection Onset Date Last Indicated Resolved Time COVID Screen (preop/placement) 04/24/2020 04/24/2020 04/25/2020 1:35 AM EST COVID Screen (preop/placement) 08/19/2020 08/19/2020 08/19/2020 3:31 AM EDT documented as of this encounter Care Teams Varnishing Machine Operator Relationship Specialty Start Date End Date Surinder Rocha MD [address] [place] [address] PCP - General Family Medicine 10/05/19 documented as of this encounter
--- OUTSIDE RECORDS SUMMARY | 2025-04-22 08:40 | XMS_ITS | Encounter Summary ---
[facility] Address [address] [place] [address] Care Team Providers Care Student Truck Driver Name Role Phone Surinder Rocha MD Primary Care Provider [phone] Reason for Visit * Reason Comments Med Refill Encounter Details Date Type Department Care Team (Late st Contact Info) Description 10/07/2019 Refill [facility] [address] [place] [address] Surinder Rocha MD [address], [place] [id number] Complicated migraine Social History Tobacco Use Types [...] EDT Appointment [facility] [address] [place] [phone] documented as of this encounter Visit Diagnoses Diagnosis Complicated migraine Migraine, unspecified, without mention of intractable migraine without mention of status migrainosus documented in this encounter Additional Health Concerns Infection Onset Date Last Indicated Resolved Time COVID Screen (preop/placement) 04/24/2020 04/24/2020 04/25/2020 1:35 AM EST COVID Screen (preop/placement) 08/19/2020 08/19/2020 08/19/2020 3:31 AM EDT documented as of this encounter Care Teams Student Truck Driver Relationship Specialty Start Date End Date Surinder Rocha MD [address] [place] [id number] PCP - General Family Medicine 10/05/19 documented as of this encounter
--- OUTSIDE RECORDS SUMMARY | 2025-04-22 08:40 | XMS_ITS | Encounter Summary ---
[facility] Address [address] [place] [address] Care Team Providers Care Director Of Teaching And Learning Name Role Phone Surinder Rocha MD Primary Care Provider Reason for Visit * Reason Comments Med Refill Encounter Details Date Type Department Care Team (Late st Contact Info) Description 11/06/2019 Refill [facility] [address] [place] [id number] January Flores DO [address] [place] [address] Insomnia, unspecified type Social History Tobacco Use [...] EDT Appointment [facility] [address] [place] [phone] documented as of this encounter Visit Diagnoses Diagnosis Insomnia, unspecified type documented in this encounter Additional Health Concerns Infection Onset Date Last Indicated Resolved Time COVID Screen (preop/placement) 04/24/2020 04/24/2020 04/25/2020 1:35 AM EST COVID Screen (preop/placement) 08/19/2020 08/19/2020 08/19/2020 3:31 AM EDT documented as of this encounter Care Teams Director Of Teaching And Learning Relationship Specialty Start Date End Date Surinder Rocha MD [address] [place] [address] PCP - General Family Medicine 10/05/19 documented as of this encounter
--- NOTE | 2025-04-22 08:43 | HMH.EDGENADL ---
Discharge Plan Disposition Patient Disposition: Home, Self-Care Prescriptions Prescriptions: New levofloxacin 750 mg tablet 750 mg PO DAILY 7 Days Qty: 7 0RF No Action furosemide [Lasix] 40 mg tablet 40 mg PO DAILY PRN (Reason: edema) Qty: 30 2RF spironolactone 50 mg tablet 50 mg PO DAILY 30 Days Qty: 90 3RF (DME) blood pressure test kit-large Kit See Rx Instructions .Route Qty: 1 0RF Rx Instructions: As directed albuterol sulfate 90 mcg/actuation HFA aerosol inhaler 2 puff inhalation Q4HP PRN (Reason: Shortness Of Breath) Patient Comments: INHALE 1 PUFF BY MOUTH EVERY 4 HOURS NEEDED FOR WHEEZING levothyroxine 125 mcg tablet 125 mcg PO DAILY Patient Comments: TAKE 1 TABLET BY MOUTH ONCE DAILY montelukast 10 mg tablet 10 mg PO HS Patient Comments: TAKE 1 TABLET BY MOUTH ONCE DAILY AT NIGHT Trulance 3 mg tablet 3 mg PO DAILY Patient Comments: TAKE 1 TABLET BY MOUTH ONCE DAILY diclofenac sodium [Arthritis Pain (diclofenac)] 1 % gel 4 g topical QID Qty: 50 0RF Rx Instructions: apply to single knee, ankle, foot; for foot includes sole/toes/top of foot buspirone 30 mg tablet 30 mg PO HS Qty: 30 1RF Rx Instructions: Buspirone 15mg by mouth daily in the morning and 30mg at bedtime. buspirone 15 mg tablet 15 mg PO DAILY Qty: 30 1RF Rx Instructions: Buspirone 15mg by mouth daily in the morning and 30mg at bedtime. ranolazine 500 mg tablet extended release 12 hr 500 mg PO BID Qty: 60 2RF Auvelity 45-105 mg tablet, IR and ER, biphasic 0RF bupropion HCl 150 mg tablet extended release 24 hr 150 mg PO DAILY Qty: 30 2RF Auvelity 45-105 mg tablet, IR and ER, biphasic 1 tab PO BID Qty: 60 2RF amitriptyline 75 mg tablet 75 mg PO DAILY Qty: 30 2RF pantoprazole 40 mg tablet,delayed release (DR/EC) 40 mg PO DAILY azelastine 137 mcg (0.1 %) spray,non-aerosol 1 spray intranasal BID Xiidra 5 % dropperette ophthalmic (eye) BID nitrofurantoin monohyd/m-cryst [Macrobid] 100 mg capsule 100 mg PO Q12H 5 Days Qty: 10 0RF Rx Instructions: must administer with a meal/food (DME) blood pressure test kit-large [Advocate Blood Pressure Monitr] Kit See Rx Instructions .Route Qty: 1 0RF Rx Instructions: As directed escitalopram oxalate 20 mg tablet 20 mg PO HS Qty: 30 0RF Ozempic 0.25 mg or 0.5 mg (2 mg/3 mL) pen injector 0.25 mg SQ WEEKLY 30 Days Qty: 1.84 0RF Rx Instructions: for 4 weeks valacyclovir 1 gram tablet 1,000 mg PO DAILY promethazine 25 mg tablet 12.5 - 25 mg PO Q6HP PRN (Reason: Nausea And Vomiting) Patient Comments: TAKE 1/2 TO 1 (ONE-HALF TO ONE) TABLET BY MOUTH EVERY 6 HOURS NEEDED gabapentin 100 mg capsule 300 mg PO DAILY Patient Comments: TAKE 1 CAPSULE BY MOUTH ONCE DAILY IN THE MORNING fluticasone propion-salmeterol [Advair Diskus] 100-50 mcg/dose blister with device 1 inh INHALATION BID Patient Comments: INHALE 1 DOSE BY MOUTH TWICE DAILY ondansetron 8 mg tablet,disintegrating 8 mg PO TIDP PRN (Reason: nausea and vomiting) cyclobenzaprine 10 mg tablet 10 mg PO HS Patient Comments: TAKE 1 TABLET BY MOUTH AT NIGHT NEEDED FOR MUSCLE SPASM nitroglycerin 0.4 mg tablet, sublingual 0.4 mg sublingual Q5M PRN (Reason: chest pain) Qty: 30 0RF Rx Instructions: do not exceed 3 doses per episode zolpidem 10 MG tablet 10 mg PO HSP PRN (Reason: Insomnia) fluticasone propionate 120 SPR/BOT bottle 1 - 2 spr intranasal DAILY Referrals Follow up/Referrals: Dhiraj Alvarez II, MD [Staff Physician, Gastroenterology] - See instructions Surinder Rocha [Primary Care Provider, Medical] - See instructions Activity Restrictions/Add. Instructions Additional Instructions/Restrictions: Your CAT scan was concerning for sigmoid colitis. However we cannot definitively rule out malignancy please follow-up with Dr. Alvarez to be evaluated for possible colonoscopy. Additionally had evidence of urinary tract infection with the flank pain we will treat you for possible pyelonephritis. There is some diagnostic uncertainty as to exactly what is causing your symptoms however the antibiotic that I prescribed you should treat both. Please follow-up closely with Dr. Alvarez and return to the emergency department any worsening symptoms. Clinical Impressions Clinical Impression: Abdominal pain, LLQ, Colitis, Pyelonephritis Instructions Patient Instructions: DI for Acute Abdominal Pain Print Language Print Language: British Discharge ED Provider: Qian Troy General Adult HPI General Chief complaint: Abdominal Pain Stated complaint: lower Left abdominal pain Time Seen by Provider: 04/22/25 08:35 Mode of Arrival: Ambulatory Source of Information: Patient Description of Symptoms (Recalled from ER Triage Doc. by RN): PATIENT PRESENTS TO ED FOR LLQ ABDOMINAL PAIN FOR APPROX. 1 WEEK. ENDORSES NAUSEA, SOME DIARRHEA BUT HAS NOT HAD ANY IN 3 DAYS. HX OF DIVERTICULITIS. History of Present Illness HPI narrative: Patient is a 60-year-old female who presents today with left lower quadrant abdominal pain. When asked about diverticulitis she states she has not had any significant diverticulitis like this in the past but possibly has a history of it. This has been worsening for the last week she has had some urinary frequency urgency dysuria was started on nitrofurantoin for a possible urinary tract infection without any improvement. The pain radiates from her left lower quadrant through her back states that she is known she has a stone in her kidney but has never had a kidney stone that has caused this type of pain before no fevers or chills objectively. States the pain is severe and constant the moment. Related Data Home Medications ?Medication ?Instructions ?Recorded ?Confirmed zolpidem 10 mg tablet 10 mg PO HSP PRN Insomnia 12/04/17 04/19/25 fluticasone propionate 50 1 - 2 spr intranasal DAILY 06/22/20 04/19/25 mcg/actuation nasal spray,suspension albuterol sulfate 90 mcg/actuation 2 puff inhalation Q4HP PRN 11/18/24 04/19/25 aerosol inhaler Shortness Of Breath levothyroxine 125 mcg tablet 125 mcg PO DAILY 02/18/25 04/19/25 montelukast 10 mg tablet 10 mg PO HS 02/18/25 04/19/25 plecanatide 3 mg tablet (Trulance) 3 mg PO DAILY 02/18/25 04/19/25 cyclobenzaprine 10 mg tablet 10 mg PO HS 03/02/25 04/19/25 fluticasone 100 mcg-salmeterol 50 1 inh inhalation BID 03/02/25 04/19/25 mcg/dose blistr powdr for inhalation (Advair Diskus) gabapentin 100 mg capsule 300 mg PO DAILY 03/02/25 04/19/25 ondansetron 8 mg disintegrating 8 mg PO TIDP PRN nausea and 03/02/25 04/19/25 tablet vomiting promethazine 25 mg tablet 12.5 - 25 mg PO Q6HP PRN Nausea 03/02/25 04/19/25 And Vomiting valacyclovir 1 gram tablet 1,000 mg PO DAILY 03/02/25 04/19/25 azelastine 137 mcg (0.1 %) nasal 1 spray intranasal BID 04/19/25 04/19/25 spray lifitegrast 5 % eye drops in a drp ophthalmic (eye) BID 04/19/25 04/19/25 dropperette (Xiidra) pantoprazole 40 mg tablet,delayed 40 mg PO DAILY 04/19/25 04/19/25 release Previous Rx's ?Medication ?Instructions ?Recorded diclofenac sodium 1 % topical gel 4 g topical QID #50 grams 02/18/25 (Arthritis Pain (diclofenac)) nitroglycerin 0.4 mg sublingual 0.4 mg sublingual Q5M PRN chest 03/03/25 tablet pain #30 tabs buspirone 15 mg tablet 15 mg PO DAILY #30 tabs 03/07/25 buspirone 30 mg tablet 30 mg PO HS #30 tabs 03/07/25 ranolazine 500 mg tablet,extended 500 mg PO BID #60 tabs 03/10/25 release,12 hr blood pressure test kit-large #1 ea 03/25/25 (Advocate Blood Pressure Monitor kit) escitalopram oxalate 20 mg tablet 20 mg PO HS #30 tabs 04/04/25 amitriptyline 75 mg tablet 75 mg PO DAILY #30 tabs 04/05/25 bupropion HCl 150 mg 24 hr tablet, 150 mg PO DAILY #30 tabs 04/05/25 extended release dextromethorphan IR 45 1 tab PO BID #60 ea 04/05/25 mg-bupropion ER 105 mg biphasic tablet (Auvelity) blood pressure test kit-large #1 ea 04/14/25 furosemide 40 mg tablet (Lasix) 40 mg PO DAILY PRN edema #30 tabs 04/14/25 spironolactone 50 mg tablet 50 mg PO DAILY 30 days #90 tabs 04/14/25 nitrofurantoin 100 mg PO Q12H 5 days #10 caps 04/19/25 monohydrate/macrocrystals 100 mg capsule (Macrobid) levofloxacin 750 mg tablet 750 mg PO DAILY 7 days #7 tabs 04/22/25 semaglutide 0.25 mg or 0.5 mg (2 0.25 mg (0.368 mL) SQ WEEKLY 30 04/22/25 mg/3 mL) subcutaneous pen injector days #1.84 mL (Ozempic) Allergies Allergy/AdvReac Type Severity Reaction Status Date / Time pregabalin (From Lyrica) Allergy Severe Swelling Verified 04/19/25 14:24 of Lip/Tongue/Throat duloxetine (From Cymbalta) Allergy Mild Irritable Verified 04/19/25 14:24 latex Allergy Mild Rash Verified 04/19/25 14:24 sulfamethoxazole (From AdvReac Mild Nausea Verified 04/19/25 14:24 Bactrim) trimethoprim (From Bactrim) AdvReac Mild Nausea Verified 04/19/25 14:24 PFSH PFSH Disclaimer: The information contained in this section may have been updated after the patient was seen, as this information can be updated by other users. Medical History (Updated 04/22/25 @ 11:04 by Qian Troy MD) UTI (urinary tract infection) Bilateral foot pain Prediabetes Obesity, morbid, BMI 40.0-49.9 Unstable angina Unstable angina Chest pain Laceration of left thumb Nausea Generalized abdominal pain Sore throat Cut of lower extremity Acute effusion of both middle ears Eustachian tube dysfunction URI (upper respiratory infection) Cough Chronic sore throat Abdominal pain Acute bilateral low back pain with bilateral sciatica Constipation Abdominal pain UTI (urinary tract infection) Constipation Abdominal pain Sinusitis Bronchitis COVID-19 Bronchitis Viral syndrome Neuropathy, cervical (radicular) Left leg paresthesias Arm paresthesia, left Bronchitis Otitis media GERD (gastroesophageal reflux disease) Atypical chest pain Chest pain Constipation Acute UTI (urinary tract infection) Cystitis Headache Abdominal pain Superficial thrombophlebitis Obesity (BMI 30-39.9) Cellulitis Abnormal ECG Syncope SOB (shortness of breath) Deviated nasal tip Sarcoma Thyroid Nodule Cervical lymphadenopathy Hoarseness Hypothyroidism Dysphagia Surgical History Status post knee replacement History of hysterectomy History of hernia surgery History of bilateral knee replacement Family History Other No significant family history Social History Smoking Status: Never smoker second hand exposure: No alcohol intake: never substance use type: denies use current occupational status: other Travel in the last 8 weeks?: None household members: family housing: house current occupational exposures/hazards: No caffeine: Yes Have you lived/traveled outside [place] in past 30 days?: No Contact w/someone who lives/traveled outside US past 30 days?: No Exposure to someone with infectious disease in past 14 days?: No Do you have a fever (greater than 100.4 F or 38 C)?: No Have you tested positive for COVID-19?: No Exposed to someone with COVID-19 in past 14 days?: No Do you have a sore throat?: No Do you have a cough?: No Do you have any weakness?: No Do you have any diarrhea?: No Are you experiencing any unusual bleeding?: No Do you have any muscle aches/pain?: Yes Do you have any abdominal pain?: No Are you experiencing loss of taste or smell?: No Other Medical History Have you received the Flu Vaccine for this season: No Have you received the Pneumonia Vaccine: Yes ROS Obtained: Yes All systems reviewed & no additional complaints except as documented Physical Exam General General appearance: alert Respiratory Respiratory exam: Present normal lung sounds bilaterally Cardiovascular Cardiovascular exam: Present regular rate Abdominal Exam Abdominal exam: Present soft and tenderness (Left mid abdomen and left lower quadrant tenderness to palpation no rebound or guarding or tenderness elsewhere); Absent distention Neurological Exam Neurological exam: Present alert and oriented X3 Medical Decision Making Medical Records Screening: Per USPSTF and CDC recommendations, given the prevalence of disease in our region, it is our hospital?s policy to screen for HIV and viral Hepatitis for all patients aged 18 and over and those with ongoing risk factors. Reyes Inquiry Pt receiving controlled substance: No Vital Signs: 04/22/25 08:26 04/22/25 08:28 04/22/25 08:28 Temperature 99.1 F 99.1 F Temperature Source Oral Pulse Rate 79 79 Pulse Rate [Right] 79 Respiratory Rate 18 18 Blood Pressure 97/71 L 97/71 L Blood Pressure [Right Arm] 97/71 L Blood Pressure Mean [Right Arm] 79 02 Sat by Pulse Oximetry 98 98 98 Oxygen Delivery Method Room Air 04/22/25 08:39 04/22/25 09:00 04/22/25 09:30 Temperature Temperature Source Pulse Rate 80 71 72 Pulse Rate [Right] Respiratory Rate Blood Pressure 111/67 100/71 L 101/53 L Blood Pressure [Right Arm] Blood Pressure Mean [Right Arm] 02 Sat by Pulse Oximetry 99 93 L 93 L Oxygen Delivery Method Room Air Room Air Room Air 04/22/25 10:00 Temperature Temperature Source Pulse Rate 72 Pulse Rate [Right] Respiratory Rate Blood Pressure 105/66 L Blood Pressure [Right Arm] Blood Pressure Mean [Right Arm] 02 Sat by Pulse Oximetry 90 L Oxygen Delivery Method Lab Data Lab results reviewed: Yes I reviewed the patient's lab results. Lab Results 04/22/25 08:25: Urine Color Yellow, Urine Appearance Clear, Urine pH 7.0, Ur Specific [place] 1.015, Urine Protein Negative, Urine Glucose (UA) Negative, Urine Ketones Negative, Urine Blood Negative, Urine Nitrate Negative, Urine Bilirubin Negative, Urine Urobilinogen 1.0, Ur Leukocyte Esterase 1+ A, Urine RBC None, Urine WBC 3-5, Ur Squamous Epith Cells 5-10, Urine Bacteria Trace 04/22/25 08:40: WBC 7.0, RBC 4.52, Hgb 11.1 L, Hct 36.9 L, MCV 81.6, MCH 24.6 L, MCHC 30.1 L, RDW 16.7, Plt Count 282, MPV 10.8 H, Neut % (Auto) 71.5, Lymph % (Auto) 17.6, [place] % (Auto) 5.6, Eos % (Auto) 4.6, Baso % (Auto) 0.6, Neut # (Auto) 5.0, Lymph # (Auto) 1.2, [place] # (Auto) 0.4, Eos # (Auto) 0.3, Baso # (Auto) 0.0, Sodium 139, Potassium 4.3, Chloride 103, Carbon Dioxide 29, Anion Gap 11.3, BUN 13, Creatinine 0.90, Estimated Creat Clear 110, Estimated GFR 64, Est GFR ( Amer) 77, Glucose 103 H, Calcium 9.2, Total Bilirubin 0.3, AST 27, ALT 24, Alkaline Phosphatase 95, Total Protein 7.3, Albumin 4.1, Globulin 3.2, Albumin/Globulin Ratio 1.3 04/22/25 08:40 04/22/25 08:40 Orders (Tests/Meds): ED MEDICATIONS Discontinued Medications Generic Name Dose Route Start Last Admin Trade Name Fretapan PRN Reason Stop Dose Admin Lactated Ringer's 1,000 mls @ 999 mls/hr 04/22/25 08:45 04/22/25 10:18 Lactated Ringer's 1000 Ml Bag IV 04/22/25 09:45 Infused .[id number] SOUMYA Infusion Iopamidol 75 ml 04/22/25 09:17 04/22/25 09:18 Iopamidol-370 (76%);100ml Bottle IV 04/22/25 09:18 75 ml ONCE ONE Administration Morphine Sulfate 4 mg 04/22/25 08:40 04/22/25 09:01 Morphine 4mg/Ml Syringe IV 04/22/25 08:41 4 mg ONCE ONE Administration Ondansetron HCl 4 mg 04/22/25 08:40 04/22/25 09:01 Ondansetron 4mg/2ml Vial IV 04/22/25 08:41 4 mg ONCE ONE Administration Sodium Chloride 10 ml 04/22/25 09:17 04/22/25 09:18 Sodium Chloride 0.9% 10ml Syr (Rad Only) IV 04/22/25 09:18 10 ml ONCE ONE Administration ORDERS Category Date Time Status CT abdomen pelvis w con Stat Cat Scan 04/22/25 08:40 Taken CBC w/Auto Diff [Complete Blood Count Auto Diff] Stat Lab 04/22/25 08:40 Completed CMP [Comprehensive Metabolic Panel] Stat Lab 04/22/25 08:40 Completed UA [Urinalysis and Microscopic] Stat Lab 04/22/25 08:25 Completed Urine Culture Stat Micro 04/22/25 08:25 Received Medical Decision Narrative: Patient with above history and physical with significant tenderness in the left mid and left lower quadrants of her abdomen. Has been constant over the last week and worsening differential includes diverticulitis colitis malignancy urinary tract infection kidney stone etc. Will get a contrasted CT scan to differentiate this further. IV fluids pain medicine nausea medicine have been administered and will reassess. Reassessment [address] benign CT scan performed I personally interpreted which shows some very mild stranding over the descending and sigmoid colon radiology is concerned about the thickening and possibility of malignancy versus colitis. Will treat this as colitis. Additionally patient has evidence of residual or ongoing urinary tract infection will treat for possible pyelonephritis. Unclear as to what exactly is causing her symptoms but Levaquin could should treat both conditions. Cannot rule out malignancy and she will follow-up with Dr. Alvarez for possible colonoscopy. Patient discharged in a stable condition understood all of the above. Critical Care Critical Care Time Critical Care Time: No
[2025-04-22 08:45] LABS: Microscopic, Urine URINE MICROSCOPIC (MICROSCOPIC)
[2025-04-22 08:50] LABS: Hematocrit 36.9 % (37.0-47.0); Hemoglobin 11.1 g/dL (12.2-16.2); Immature Granulocytes % 0.1 %; Mean Corpuscular HGB Conc 30.1 g/dL (31.8-35.4); Mean Corpuscular Hemoglobin 24.6 pg (27.0-31.2); Mean Corpuscular Volume 81.6 fl (81-99); Nucleated Red Blood Cells % 0 %; Platelet Count 282 K/mm3 (142-424); Red Blood Count 4.52 M/mm3 (4.20-5.40); Red Cell Distribution Width-SD 49.2 fL; White Blood Count 7.0 K/mm3 (4.8-10.8)
[2025-04-22 08:58] LABS: Albumin Level 4.1 g/dl (3.5-5.0); Chloride 103 mmol/L (98-107); Sodium 139 mmol/L (136-145)
[2025-04-22 08:59] LABS: Potassium 4.3 mmoL/L (3.5-5.1)
[2025-04-22 09:01] LABS: Alanine Aminotransferase 24 U/L (12-78); Albumin/Globulin Ratio 1.3 (1.1-1.8); Alkaline Phosphatase 95 U/L (38-126); Anion Gap 11.3 mEq/L (5-15); Aspartate Amino Transferase 27 U/L (14-36); Bilirubin,Total 0.3 mg/dl (0.2-1.3); Blood Urea Nitrogen 13 mg/dl (7-17); Carbon Dioxide 29 mmol/L (22.0-30.0); Creatinine Clearance Estimated 110 mL/min (50-200); Creatinine,Serum 0.90 mg/dl (0.52-1.04); Estimated Glomerular Filt Rate 64 ml/min (>60); GFR (African American) 77 ML/MIN (>60); Globulin 3.2 g/dL (1.3-3.2); Total Protein,Serum 7.3 g/dl (6.3-8.2)
[2025-04-22] MEDS: MORPHINE 4MG/ML SYRINGE 4 MG IV (09:01)
[2025-04-22] MEDS: LACTATED RINGERS 1000ML 1,000 ML 999 ML IV (09:01)
[2025-04-22] MEDS: ONDANSETRON 4MG/2ML VIAL 4 MG IV (09:01)
[2025-04-22 09:02] LABS: Bilirubin,Urine Negative (Negative); Color,Urine YELLOW (Yellow); Glucose,Urine (UA) Negative (Negative); Ketones,Urine Negative (Negative); Leukocyte Esterase,Urine 1+ (Negative); PH,Urine 7.0 (5.0-8.5); Protein,Urine Negative (Negative); Specific Gravity, Urine 1.015 (1.005-1.030); Urobilinogen,Urine 1.0 EU/dl (0.2)
[2025-04-22 09:02] LABS: Calcium 9.2 mg/dl (8.4-10.2); Glucose 103 mg/dl (74-100)
[2025-04-22] MEDS: SODIUM CHLORIDE 0.9% 10ML SYR (RAD ONLY) 10 ML IV (09:18)
[2025-04-22] MEDS: IOPAMIDOL-370 (76%);100ML BOTTLE 75 ML IV (09:18)
[2025-04-22 09:45] LABS: Bacteria,Urine Trace /lpf
== END 2025-04-22 11:23 | disposition home or self-care (01) ==
PROVIDERS: Emergency Provider Student in an Organized Health Care Education/Training Program; PCP Family Medicine
DX: R10.32 Left lower quadrant pain (principal); N10 Acute pyelonephritis; K52.9 Noninfective gastroenteritis and colitis, unspecified; R30.0 Dysuria; R35.0 Frequency of micturition; R39.15 Urgency of urination
CPT/HCPCS: 74177; 80053; 81001; 85025; 87086; 96361; 96374; 96375; 99285; J2270; J2405; J7120; Q9967

== ENCOUNTER 2025-04-25 09:34 | Day surgery (SDC) | payer MEDICAID, SELFPAY ==
[2025-04-22 12:09] VITALS: BMI 40.7
--- NOTE | 2025-04-25 07:11 | EXP.HP ---
History of Present Illness *Admission Date: 04/25/25 *History of present illness: Mrs. Chase is a 60-year-old female who is here for diagnostic colonoscopy. The patient was in the emergency department recently with left lower quadrant abdominal pain and the CAT scan had shown segmental narrowing of the proximal sigmoid colon with surrounding stranding concerning for segmental colitis or neoplasm. The patient did have a colonoscopy in [place] (Luis Vivas MD) over a year ago. The patient's lab work did show hemoglobin 11.1 and hematocrit 36.9 with MCV of 81.6. The examination is deemed medically necessary for diagnostic colonoscopy. The patient has been seen, interviewed and examined prior to the procedure by both myself and the anesthesia provider. [facility] Disclaimer: The information contained in this section may have been updated after the patient was seen, as this information can be updated by other users. Medical History UTI (urinary tract infection) Bilateral foot pain Prediabetes Obesity, morbid, BMI 40.0-49.9 Unstable angina Unstable angina Chest pain Laceration of left thumb Nausea Generalized abdominal pain Sore throat Cut of lower extremity Acute effusion of both middle ears Eustachian tube dysfunction URI (upper respiratory infection) Cough Chronic sore throat Abdominal pain Acute bilateral low back pain with bilateral sciatica Constipation Abdominal pain UTI (urinary tract infection) Constipation Abdominal pain Sinusitis Bronchitis COVID-19 Bronchitis Viral syndrome Neuropathy, cervical (radicular) Left leg paresthesias Arm paresthesia, left Bronchitis Otitis media GERD (gastroesophageal reflux disease) Atypical chest pain Chest pain Constipation Acute UTI (urinary tract infection) Cystitis Headache Abdominal pain Superficial thrombophlebitis Obesity (BMI 30-39.9) Cellulitis Abnormal ECG Syncope SOB (shortness of breath) Deviated nasal tip Sarcoma Thyroid Nodule Cervical lymphadenopathy Hoarseness Hypothyroidism Dysphagia Surgical History Status post knee replacement History of hysterectomy History of hernia surgery History of bilateral knee replacement Family History Other No significant family history Social History Smoking Status: Never smoker second hand exposure: No alcohol intake: never substance use type: denies use current occupational status: other Travel in the last 8 weeks?: None household members: family housing: house current occupational exposures/hazards: No caffeine: Yes Have you lived/traveled outside US in past 30 days?: No Contact w/someone who lives/traveled outside US past 30 days?: No Exposure to someone with infectious disease in past 14 days?: No Do you have a fever (greater than 100.4 F or 38 C)?: No Have you tested positive for COVID-19?: No Exposed to someone with COVID-19 in past 14 days?: No Do you have a sore throat?: No Do you have a cough?: No Do you have any weakness?: No Are you experiencing any nausea/vomitting?: No Do you have any diarrhea?: No Are you experiencing any unusual bleeding?: No Do you have any muscle aches/pain?: No Do you have any abdominal pain?: No Are you experiencing loss of taste or smell?: No Other Medical History Have you received the Flu Vaccine for this season: No Have you received the Pneumonia Vaccine: Yes Review of Systems Review of Systems Review of systems (narrative): Negative *Cardiovascular Comments: Negative *Gastrointestinal Comments: Negative *Genitourinary Comments: Negative *Musculoskeletal Comments: Negative *Neurologic Comments: Negative Meds Home Medications and Allergies Home Medications ?Medication ?Instructions ?Recorded ?Confirmed ?Type zolpidem 10 mg tablet 10 mg PO HSP PRN Insomnia 12/04/17 04/25/25 History fluticasone propionate 50 1 - 2 spr intranasal DAILY 06/22/20 04/25/25 History mcg/actuation nasal spray,suspension albuterol sulfate 90 mcg/actuation 2 puff inhalation Q4HP PRN 11/18/24 04/25/25 History aerosol inhaler Shortness Of Breath diclofenac sodium 1 % topical gel 4 g topical QID #50 grams 02/18/25 04/25/25 Rx (Arthritis Pain (diclofenac)) levothyroxine 125 mcg tablet 125 mcg PO DAILY 02/18/25 04/25/25 History montelukast 10 mg tablet 10 mg PO HS 02/18/25 04/25/25 History plecanatide 3 mg tablet (Trulance) 3 mg PO DAILY 02/18/25 04/25/25 History cyclobenzaprine 10 mg tablet 10 mg PO HS 03/02/25 04/25/25 History fluticasone 100 mcg-salmeterol 50 1 inh inhalation BID 03/02/25 04/25/25 History mcg/dose blistr powdr for inhalation (Advair Diskus) gabapentin 100 mg capsule 300 mg PO DAILY 03/02/25 04/25/25 History ondansetron 8 mg disintegrating 8 mg PO TIDP PRN nausea and 03/02/25 04/25/25 History tablet vomiting promethazine 25 mg tablet 12.5 - 25 mg PO Q6HP PRN Nausea 03/02/25 04/25/25 History And Vomiting valacyclovir 1 gram tablet 1,000 mg PO DAILY 03/02/25 04/25/25 History nitroglycerin 0.4 mg sublingual 0.4 mg sublingual Q5M PRN chest 03/03/25 04/25/25 Rx tablet pain #30 tabs buspirone 15 mg tablet 15 mg PO DAILY #30 tabs 03/07/25 04/25/25 Rx buspirone 30 mg tablet 30 mg PO HS #30 tabs 03/07/25 04/25/25 Rx ranolazine 500 mg tablet,extended 500 mg PO BID #60 tabs 03/10/25 04/25/25 Rx release,12 hr blood pressure test kit-large #1 ea 03/25/25 04/25/25 Rx ([facility] Blood Pressure Monitor kit) escitalopram oxalate 20 mg tablet 20 mg PO HS #30 tabs 04/04/25 04/25/25 Rx amitriptyline 75 mg tablet 75 mg PO DAILY #30 tabs 04/05/25 04/25/25 Rx bupropion HCl 150 mg 24 hr tablet, 150 mg PO DAILY #30 tabs 04/05/25 04/25/25 Rx extended release dextromethorphan IR 45 1 tab PO BID #60 ea 04/05/25 04/25/25 Rx mg-bupropion ER 105 mg biphasic tablet (Auvelity) blood pressure test kit-large #1 ea 04/14/25 04/25/25 Rx furosemide 40 mg tablet (Lasix) 40 mg PO DAILY PRN edema #30 tabs 04/14/25 04/25/25 Rx spironolactone 50 mg tablet 50 mg PO DAILY 30 days #90 tabs 04/14/25 04/25/25 Rx azelastine 137 mcg (0.1 %) nasal 1 spray intranasal BID 04/19/25 04/25/25 History spray lifitegrast 5 % eye drops in a 1 drp ophthalmic (eye) BID 04/19/25 04/25/25 History dropperette (Xiidra) nitrofurantoin 100 mg PO Q12H 5 days #10 caps 04/19/25 04/25/25 Rx monohydrate/macrocrystals 100 mg capsule (Macrobid) pantoprazole 40 mg tablet,delayed 40 mg PO DAILY 04/19/25 04/25/25 History release levofloxacin 750 mg tablet 750 mg PO DAILY 7 days #7 tabs 04/22/25 04/25/25 Rx semaglutide 0.25 mg or 0.5 mg (2 0.25 mg (0.368 mL) SQ WEEKLY 30 04/22/25 04/25/25 Rx mg/3 mL) subcutaneous pen injector days #1.84 mL (Ozempic) New Prescriptions to Start Prescriptions: Allergies Allergy/AdvReac Type Severity Reaction Status Date / Time pregabalin (From Lyrica) Allergy Severe Swelling Verified 04/25/25 09:48 of Lip/Tongue/Throat duloxetine (From Cymbalta) Allergy Mild Irritable Verified 04/25/25 09:48 latex Allergy Mild Rash Verified 04/25/25 09:48 sulfamethoxazole (From AdvReac Mild Nausea Verified 04/25/25 09:48 Bactrim) trimethoprim (From Bactrim) AdvReac Mild Nausea Verified 04/25/25 09:48 Exam Data for Last 24 hours I & O for Last 24 hours: Intake & Output 04/22/25 04/23/25 04/24/25 04/25/25 23:59 23:59 23:59 23:59 Weight 260 lb *Routine HEENT Exam Head: Present normocephalic Eye: Present EOMI and PERRL ENT: Present mucous membranes moist *Routine Neck Exam Neck: Present supple *Routine Respiratory Exam Respiratory: Present CTA bilaterally *Routine Cardiovascular Exam Cardiovascular: Present RRR *Routine Abdominal Exam Abdominal: Present soft and normoactive bowel sounds; Absent tenderness *Routine Rectal Exam Rectal:: deferred *Routine Genitalia Exam Genitalia:: deferred *Routine Extremities Exam Extremities: Absent cyanosis, clubbing or edema *Routine Skin Exam Skin: Present warm; Absent rash *Routine Neurological Exam Neurological: Present alert and oriented X3 Assessment and Plan *Assessment and plan (1) Colitis: Status: Acute Category: Medical Code(s): K52.9 - Noninfective gastroenteritis and colitis, unspecified (2) Abdominal pain, LLQ: Status: Acute Category: Medical Code(s): R10.32 - Left lower quadrant pain
--- NOTE | 2025-04-25 07:15 | P.PCN_ITS ---
[facility] Procedure Note Date: 04/25/25 Time: 11:33 Procedure Note:: Sigmoidoscopy Procedure Report: Aborted colonoscopy Endoscopist: Dhiraj Alvarez II, MD Referring physician: Surinder Rocha MD, [address] [facility] , [facility], [place] [address] Date of Procedure: April 25, 2025 Equipment: Olympus [id number] adult colonoscope Sedation: MAC sedation Indication: Mrs. Chase is a 60-year-old female who is here for diagnostic colonoscopy. The patient was in the emergency department recently with left lower quadrant abdominal pain and the CAT scan had shown segmental narrowing of the proximal sigmoid colon with surrounding stranding concerning for segmental colitis or neoplasm. The patient did have a colonoscopy in [place] (Luis Vivas MD) 3 to 4 years ago and was told to return for colonoscopy in 1 year. She reports no rectal bleeding. The patient's lab work did show hemoglobin 11.1 and hematocrit 36.9 with MCV of 81.6. The examination is deemed medically necessary for diagnostic colonoscopy. Procedure: Prior to the procedure, a history and physical exam was performed, and patient's medications and allergies were reviewed. The risks, benefits and alternatives of the sedation and procedure were discussed with the patient. All questions were answered and informed consent was obtained. The patient was brought to the procedure room. Patient identification and proposed procedure were verified by the physician and the nurse. The patient was placed in a left lateral decubitus position and the scope was passed under direct vision. Throughout the procedure, the patient's blood pressure, pulse, and oxygen saturations were monitored continuously. The colonoscopy was accomplished without difficulty. The patient tolerated the procedure well. Findings: On digital rectal examination, there was normal rectal tone. The scope was then inserted through the anal canal into the rectum and advanced to the splenic flexure or juncture of transverse and descending colon. There was a marked amount of liquid and solid stool with inadequate bowel preparation and poor visibility. I did advance to this region just to make sure there was no sigmoid stricture or mass. There was evidence of diverticuli in the distal descending and sigmoid colon. There were grade 1-2 internal hemorrhoids in the rectum. Impression: 1. Poor bowel preparation 2. Left-sided diverticulosis Plan: The colonoscopy was aborted because of the inadequate bowel preparation. I will discuss the findings with the patient and family.
[2025-04-25 09:55] VITALS: BP 108/50; PULSE 79; RESP 16; TEMP 36.4; O2SAT 95; BMI 40.7
[2025-04-25] MEDS: LACTATED RINGERS 1000ML 1,000 ML 50 ML IV (10:07)
--- NOTE | 2025-04-25 10:45 | P.PNANES_ITS ---
[facility] Disclaimer: The information contained in this section may have been updated after the patient was seen, as this information can be updated by other users. Medical History UTI (urinary tract infection) Bilateral foot pain Prediabetes Obesity, morbid, BMI 40.0-49.9 Unstable angina Unstable angina Chest pain Laceration of left thumb Nausea Generalized abdominal pain Sore throat Cut of lower extremity Acute effusion of both middle ears Eustachian tube dysfunction URI (upper respiratory infection) Cough Chronic sore throat Abdominal pain Acute bilateral low back pain with bilateral sciatica Constipation Abdominal pain UTI (urinary tract infection) Constipation Abdominal pain Sinusitis Bronchitis COVID-19 Bronchitis Viral syndrome Neuropathy, cervical (radicular) Left leg paresthesias Arm paresthesia, left Bronchitis Otitis media GERD (gastroesophageal reflux disease) Atypical chest pain Chest pain Constipation Acute UTI (urinary tract infection) Cystitis Headache Abdominal pain Superficial thrombophlebitis Obesity (BMI 30-39.9) Cellulitis Abnormal ECG Syncope SOB (shortness of breath) Deviated nasal tip Sarcoma Thyroid Nodule Cervical lymphadenopathy Hoarseness Hypothyroidism Dysphagia Surgical History Status post knee replacement History of hysterectomy History of hernia surgery History of bilateral knee replacement Family History Other No significant family history Social History Smoking Status: Never smoker second hand exposure: No alcohol intake: never substance use type: denies use current occupational status: other Travel in the last 8 weeks?: None household members: family housing: house current occupational exposures/hazards: No caffeine: Yes Have you lived/traveled outside US in past 30 days?: No Contact w/someone who lives/traveled outside US past 30 days?: No Exposure to someone with infectious disease in past 14 days?: No Do you have a fever (greater than 100.4 F or 38 C)?: No Have you tested positive for COVID-19?: No Exposed to someone with COVID-19 in past 14 days?: No Do you have a sore throat?: No Do you have a cough?: No Do you have any weakness?: No Are you experiencing any nausea/vomitting?: No Do you have any diarrhea?: No Are you experiencing any unusual bleeding?: No Do you have any muscle aches/pain?: No Do you have any abdominal pain?: No Are you experiencing loss of taste or smell?: No [facility] Anesthesia Checklist Patient Identification Patient Identification: Arm Band and Family Structural Data Admitted From: Home Planned Operative Procedure/s: Colonoscopy Consent for Planned Operative Procedure(s) Verified: Yes Verified Documents: History and Physical NPO Status Verified Time NPO: 00:00 Additional verifications Patient : No Anesthesia Reactions: No Hx Blood Transfusions: No Blood Transfusion Reaction: No Cephalosporin Allergy: No Previous Colonoscopy: Yes Airway Assessment Mallampati Score:: Class III C-Spine Mobility Assessed: Yes TMJ Mobility Assessed: Yes Dentition: Good Dentition Neurological Assessment Level of Consciousness: Awake, Alert, Appropriate and Follows Commands Hx Seizures: No Numbness or tingling in extremities: No Anesthesia Plan Anesthesia Risk discussed: Yes ASA Class: II Anesthesia Type: MAC Preoperative Comments Pre-Operative Comments: Hypothyroid. Chronic abdominal pain.
[2025-04-25 11:35] VITALS: BP 113/67; PULSE 75; RESP 18; TEMP 36.4; O2SAT 93
[2025-04-25 11:45] VITALS: BP 135/74; PULSE 71; RESP 18; TEMP 36.4; O2SAT 95
[2025-04-25 11:55] VITALS: BP 150/69; PULSE 65; RESP 17; TEMP 36.4; O2SAT 96
[2025-04-25 12:05] VITALS: BP 121/63; PULSE 63; RESP 17; TEMP 36.4; O2SAT 95
== END 2025-04-25 12:37 | disposition home or self-care (01) ==
PROVIDERS: PCP Family Medicine; Visit Provider Internal Medicine Gastroenterology
PROC: 0DJD8ZZ Inspection of Lower Intestinal Tract, Via Natural or Artificial Opening Endoscopic (ICD-10-PCS; CPT 45378; principal; 2025-04-25 11:00)
DX: R10.32 Left lower quadrant pain (principal); R93.3 Abnormal findings on diagnostic imaging of other parts of digestive tract; K57.30 Diverticulosis of large intestine without perforation or abscess without bleeding; K64.1 Second degree hemorrhoids; E03.9 Hypothyroidism, unspecified; R73.03 Prediabetes; E66.01 Morbid (severe) obesity due to excess calories; Z68.41 Body mass index [BMI] 40.0-44.9, adult; Z88.8 Allergy status to other drugs, medicaments and biological substances; Z90.710 Acquired absence of both cervix and uterus; Z96.653 Presence of artificial knee joint, bilateral; Z91.040 Latex allergy status; Z79.899 Other long term (current) drug therapy; Z79.85 Long-term (current) use of injectable non-insulin antidiabetic drugs
CPT/HCPCS: 45378; J2003; J2704; J7120

== ENCOUNTER 2025-04-29 08:40 | Outpatient (CLI) | payer MEDICAID, SELFPAY ==
--- OUTSIDE RECORDS SUMMARY | 2025-03-09 12:00 | XMS_ITS | Encounter Summary ---
[facility] Address [address] [place] [address] Care Team Providers Care Tier Over Name Role Phone Surinder Rocha MD Primary Care Provider [phone] Reason for Referral * Medical Care (Routine) - Closed Specialty Diagnoses / Procedures Referred By Contlen t Referred To Contact Diagnoses Observed sleep apnea Procedures Home Sleep Study Surinder Rocha MD [address] [facility] [place] [address] Phone: tel: fax: [facility] [address] [place] [address] Phone: tel: fax: Referral ID Status Reason Start Date Expiration Date Visits Re quested Visits Authorized [id number] Closed 03/09/2025 06/08/2026 1 1 Reason for Visit * Reason Comments Hospital Follow Up Visit [facility] 03/03/25, H EART CATHRECORDS REQUESTED 03/03, no call made Encounter Details Date Type Department Care Team ([facility] Contact Info) Description 03/09/2025 12:00 PM EST Office Visit [facility] [address] [place] [address] Surinder Rocha MD [address] [place] [address] [address] disease of [place] ir[place] artery of [place]ichael ir[place] heart with stable angina pectoris (Primary Dx); Dysuria; Acute cystitis without hematuria; Observed sleep apnea Social History Tobacco Use Types Packs/Day Years [...] or training? Not on file Preferred Language South African 08/18/2023 PHQ-2 Answer Date Recorded Patient [...] Sign Reading Time Taken Comments Blood Pressure 138/80 03/09/2025 10:59 AM EST Pulse 80 03/09/2025 10:59 AM EST Temperature 36.6 C (97.8 F) 03/09/2025 10:59 AM EST Respiratory Rate 20 03/09/2025 10:59 AM EST Oxygen Saturation 96% 03/09/2025 10:59 AM EST Inhaled Oxygen Concentration - - Weight 121 kg (267 lb) 03/09/2025 10:59 AM EST Height 170.2 cm (5' 7 ) 03/09/2025 10:59 AM EST Body Mass Index 41.82 03/09/2025 10:59 AM EST documented in this encounter Progress Notes * Surinder Rocha MD - 03/09/2025 12:00 PM EST Subjective Cielo Chase is a 59 y.o. female. History of Present Illness She was having some atypical chest pains Went to [facility] ER and was admittred Had cath without stent needed She has been placed on imdur and having DENTON with this Seeing card tomorrow though She has had dysuria recently Urine with odor She has been told she has sleep apnea Test has been ordered several times but I do not have any results The following portions of the patient's history were reviewed and updated as appropriate: allergies, current medications, past family history, past medical history, past social history, past surgicalhistory, and problem list. Review of Systems Constitutional: Negative. Respiratory: Negative. Psychiatric/Behavioral: Negative. Objective Physical Exam Vitals and nursing note [...] and all orders for this visit: 1. 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 Dysuria - POCT urinalysis dipstick, automated 3. Acute cystitis without hematuria - ciprofloxacin (Cipro) 500 MG tablet; Take 1 tablet by mouth 2 (Two) Times a Day. Dispense: 14 tablet; Refill: 0 - Urine Culture - Urine, Urine, Clean Catch 4. Observed sleep apnea - Home Sleep Study; Future Reviewed cardiology noted including CATh and ECHO. Med management goal. She has been on imdur 60, having DENTON with this. Will discuss with cardiology tomorrow but I think she should reduce dose to 30 mg. UA +, will treat with ciptor and check Cx She has never had sleep study completed. Will reorder as she likely has JAMI documented in this encounter Plan of Treatment Upcoming Encounters Date Type Department Care Team (Late st Contact Info) Description 08/25/2025 8:30 AM EDT Appointment [address] [place] [address] Scheduled Orders Name Type Priority Associated Diagnoses Orde r Schedule Home Sleep Study Sleep Center Routine Observed sleep apnea Expected: 2025 (Approximate), Expires: 03/09/2026 documented as of this encounter Procedures Procedure Name Priority Date/Time Associated Diagnosis Comments URINE CULTURE Routine 03/09/2025 11:36 AM EST Acute cystitis without hematuria POCT URINALYSIS DIPSTICK, AUTOMATED Routine 03/09/2025 11:20 AM EST Dysuria documented in this encounter Results * (ABNORMAL) Urine Culture - Urine, Urine, Clean Catch (03/09/2025 11:36 AM EST) Urine Culture Final report(A) [facility] Result 1 Escherichia coli(A) [facility] Comment: Cefazolin with an REZA <=16 predicts susceptibility to the oral agents cefaclor, cefdinir, cefpodoxime, cefprozil, cefuroxime, cephalexin, and loracarbef when used for therapy of uncomplicated urinary tract infections due to E. coli, Klebsiella pneumoniae, and Proteus mirabilis. Greater than 100,000 colony forming units per mL Susceptibility Testing Comment [facility] Comment: S = Susceptible; I = Intermediate; R = Resistant P = Positive; N = Negative MICS are expressed in micrograms per mL Antibiotic RSLT#1 RSLT#2 RSLT#3 RSLT#4 Amoxicillin/Clavulanic Acid S Ampicillin S Cefazolin S Cefepime S Cefoxitin S Cefpodoxime S Ceftriaxone S Ciprofloxacin S Ertapenem S Gentamicin S Levofloxacin S Meropenem S Nitrofurantoin S Piperacillin/Tazobactam S Tetracycline S Tobramycin S Trimethoprim/Sulfa S Urine Urine specimen obtained by clean catch procedure / Unknown 03/09/2025 11:36 AM EST 03/09/2025 Comment:ANNETTA Palomo [facility] ([facility]BULATORY) - 03/14/2025 3:07 AM EST Performed at: - Lab[address] [id number] Community Administrator: Vernon Garcia PhD, Phone: [phone] Surinder Rocha MD MICROBIOLOGY - GENERAL ORDERABL ES Final Result Performing Organization Address City/State/[facility] Co de Phone Number [facility] (AMBULATORY) [address] [id number], [facility] [address] [place] [address], * (ABNORMAL) POCT urinalysis dipstick, automated (03/09/2025 11:20 AM EST) Color Yellow Yellow, Straw, Dark Yellow, Kaila [facility] Clarity, UA Clear Clear [facility] Specific [place] 1.015 1.005 - 1.030 [facility] pH, Urine 6.0 5.0 - 8.0 [facility] Leukocytes Moderate (2+)(A) Negative [facility] Nitrite, UA Positive(A) Negative [facility] Protein, POC Negative Negative mg/dL [facility] Glucose, UA Negative Negative mg/dL [facility] Ketones, UA Negative Negative [facility] Urobilinogen, UA Normal Normal, 0.2 E.U./dL [facility] Bilirubin Negative Negative [facility] Blood, UA Trace(A) Negative [facility] Lot Number [id number] [facility] Expiration Date 05-27-2026 [facility] Urine 03/09/2025 11:2 0 AM EST us Surinder Rocha MD POINT OF CARE TEST ORDERABLES F inal Result [facility]
[address] [place] [address], documented in this encounter Visit Diagnoses Diagnosis Coronary artery disease of st. michael ira artery of [place] michael ira heart with stable angina pectoris- Primary Dysuria Acute cystitis without hematuria Observed sleep apnea documented in this encounter Additional Health Concerns Assessment Noted Time PHQ-2 Depression Total Score: 1 05/20/19 24 12:36 PM EST documented as of this encounter Care Teams Tier Over Relationship Specialty Start Date End Date Surinder Rocha MD [address] [place] [address] [place] [address] PCP - General Family Medicine 10/05/19 documented as of this encounter
--- OUTSIDE RECORDS SUMMARY | 2025-04-29 08:43 | XMS_ITS | Encounter Summary ---
Author Organization [facility] yste Address [address] [place] [address] Care Team Providers Care Breakfast Cook Name Role Phone Surinder Rocha MD Primary Care Provider [phone] Reason for Visit * Reason Comments Med Refill Encounter Details Date Type Department Care Team (Late st Contact Info) Description 03/05/2025 Refill [facility] [address] [place] [address] Jeanette Hooks, MAXX [address] [facility] [address] [place], [place] [id number] Moderate persistent asthma with exacerbation Social History [...] Info) Description 08/25/2025 8:30 [place] [address] documented as of this encounter Visit Diagnoses Diagnosis Moderate persistent asthma with exacerbation Unspecified asthma, with exacerbation documented in this encounter Additional Health Concerns Assessment Noted Time PHQ-2 Depression Total Score: 1 05/20/19 24 12:36 PM EST documented as of this encounter Care Teams Breakfast Cook Relationship Specialty Start Date End Date Surinder Rocha MD [address] [place] [address] PCP - General Family Medicine 10/05/19 documented as of this encounter
--- OUTSIDE RECORDS SUMMARY | 2025-04-29 08:43 | XMS_ITS | Encounter Summary ---
[facility] Address [address] [place] [address] Care Team Providers Care Senior Sas Programmer Name Role Phone Surinder Rocha MD Primary Care Provider [phone] Reason for Visit * Reason Onset Date Comments MEDICATION REQUEST 03/09/2025 Encounter Details Date Type Department Care Team (Late st Contact Info) Description 03/09/2025 Telephone [facility] [address] [place] [address] Surinder Rocha MD [address] [place], [place] [id number] MEDICATION REQUEST Social History Tobacco Use Types [...] or training? Not on file Preferred Language Armenian 08/18/2023 PHQ-2 Answer Date Recorded Patient Health [...] Chase Relationship: Self Best call back number: [phone] What medication are you requesting: PERDIUM What are your current symptoms: PAINFUL URINATION How long have you been experiencing symptoms: THREE DAYS Have you had these symptoms before: [x] Yes [] No Have you been treated for these symptoms before: [x] Yes [] No If a prescription is needed, what is your preferred pharmacy and phone number: [facility]- [place], [place] - [address] [phone] [facility] [phone] FX Additional notes: THE PATIENT STATES THAT [...] Info) Description 08/25/2025 8:30 AM EDT Appointment [address] [address] documented as of this encounter Visit Diagnoses Not on filedocumented in this encounter Additional Health Concerns Assessment Noted Time PHQ-2 Depression Total Score: 1 05/20/19 24 12:36 PM EST documented as of this encounter Care Teams Senior Sas Programmer Relationship Specialty Start Date End Date Surinder Rocha MD [address] [place] [address] PCP - General Family Medicine 10/05/19 documented as of this encounter
--- OUTSIDE RECORDS SUMMARY | 2025-04-29 08:43 | XMS_ITS | Encounter Summary ---
[facility] Address [address] [place] [address] Care Team Providers Care Process Control Programmer Name Role Phone Surinder Rocha MD Primary Care Provider [phone] Reason for Visit * Reason Onset Date Comments PHARMACY CALLS 03/01/2025 Encounter Details Date Type Department Care Team (Late st Contact Info) Description 03/01/2025 Telephone [facility] [address] [place] [address] Surinder Rocha MD [address] [place], [place] [id number] PHARMACY CALLS Social History Tobacco Use Types [...] or training? Not on file Preferred Language Syriac 08/18/2023 PHQ-2 Answer Date Recorded Patient Health [...] - 03/01/2025 9:31 AM EDT Pharmacy Name: [facility] - [place], [place] - [address] [phone] [facility] [phone] Pharmacy sales representative public utilities name: [facility] Pharmacy sales representative public utilities phone number: [phone] What medication are you calling in regards [...] Info) Description 08/25/2025 8:30 AM EDT Appointment [place] [id number] documented as of this encounter Visit Diagnoses Not on filedocumented in this encounter Additional Health Concerns Assessment Noted Time PHQ-2 Depression Total Score: 1 05/20/19 24 12:36 PM EST documented as of this encounter Care Teams Process Control Programmer Relationship Specialty Start Date End Date Surinder Rocha MD [address] [place] [address] PCP - General Family Medicine 10/05/19 documented as of this encounter
--- OUTSIDE RECORDS SUMMARY | 2025-04-29 08:43 | XMS_ITS | Encounter Summary ---
[facility] [address] [place] [address] Care Team Providers Care Insurance Compliance Analyst Name Role Phone Surinder Rocha MD Primary Care Provider [phone] Encounter Details Date Type Department Care Team (Late st Contact Info) Description 09/09/2024 Results Follow-Up [facility] [address] [place] [address] Surinder Rocha MD [address] [place], [place] [id number] Social History Tobacco Use Types Packs/Day Years [...] or training? Not on file Preferred Language Beninese 08/18/2023 PHQ-2 Answer Date Recorded Patient Health [...] Info) Description 08/25/2025 8:30 AM EDT Appointment [place] [id number] documented as of this encounter Visit Diagnoses Not on filedocumented in this encounter Additional Health Concerns Assessment Noted Time PHQ-2 Depression Total Score: 1 05/20/19 24 12:36 PM EST documented as of this encounter Care Teams Insurance Compliance Analyst Relationship Specialty Start Date End Date [place] [address] PCP - General Family Medicine 10/05/19 documented as of this encounter
--- OUTSIDE RECORDS SUMMARY | 2025-04-29 08:43 | XMS_ITS | Encounter Summary ---
[facility] [address] [place] [address] Care Team Providers Care Accordion Tuner Name Role Phone Surinder Rocha MD Primary Care Provider [phone] Reason for Visit * Reason Comments Med Refill Encounter Details Date Type Department Care Team (Late st Contact Info) Description 06/15/2020 Refill [facility] [address] [place] [address] Surinder Rocha MD [address] [place], [place] [id number] Idiopathic peripheral neuropathy Social History Tobacco Use [...] Info) Description 08/25/2025 8:30 AM EDT Appointment [facility] [address] [facility] [address] [place] [address] documented as of this encounter Visit Diagnoses Diagnosis Idiopathic peripheral neuropathy Unspecified hereditary and idiopathic peripheral neuropathy documented in this encounter Additional Health Concerns Infection Onset Date Last Indicated Resolved Time COVID Screen (preop/placement) 08/19/2020 08/19/2020 08/19/2020 3:31 AM EDT documented as of this encounter Care Teams Accordion Tuner Relationship Specialty Start Date End Date Surinder Rocha MD [address] [place] [address] PCP - General Family Medicine 10/05/19 documented as of this encounter
--- OUTSIDE RECORDS SUMMARY | 2025-04-29 08:43 | XMS_ITS | Clinical Summary ---
[facility] Address [address] [place] [address] Care Team Providers Care Near Eastern Archaeology Lecturer Name Role Phone Surinder Rocha MD Primary Care Provider [phone] Allergies Active Allergy Reactions Criticality Noted Date [...] hours PRN 18 g 1 025 Active promethazine (PHENERGAN) 25 MG tablet [...] mouth Daily. 90 tablet 1 025 Active montelukast (SINGULAIR) 10 MG tabletIndications :Moderate persistent asthma with exacerbation TAKE 1 TABLET BY MOUTH ONCE DAILY AT NIGHT 90 tablet 025 Active pantoprazole (Protonix) 40 MG EC tabletIndications :Gastroesophageal reflux disease, unspecified whether esophagitis present Take 1 tablet by mouth 2 (Two) Times a Day. 180 tablet 1 025 2024 Discontinued(R eorder) montelukast (SINGULAIR) 10 MG tabletIndications :Moderate persistent asthma with exacerbation TAKE 1 TABLET BY MOUTH ONCE DAILY AT NIGHT 90 tablet 025 2024 Discontinued Fluticasone-Salme terol (ADVAIR/WIXELA) 100-50 MCG/ACT DISKUSIndications :Moderate [...] Encounters Date Type Department Care Team Description 04/27/2025 Refill [facility] [address] [place] [address] Surinder Rocha MD Insomnia, unspecified type 04/25/2025 Refill [facility] [address] [place] [address] Jeanette Hooks, PA-C Moderate persistent asthma with exacerbation 04/13/2025 Telephone [facility] [address] [place] [address] Surinder Rocha MD PHARMACY CALL 04/06/2025 Refill [facility] [address] [place] [address] Jeanette Hooks, PA-C Moderate persistent asthma with exacerbation 03/21/2025 Refill [facility] [address] [place] [address] aTylor Tabor PA Muscle spasm 03/18/2025 Telephone [facility] [address] [place] [address] Surinder Rocha MD Appointment 03/14/2025 Results Follow-Up [facility] [address] [place] [address] Surinder Rocha MD 03/09/2025 12:00 PM EST Office Visit [facility] [address] [place] [address] Surinder Rocha MD 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 [address] [facility] [place] [address] Surnider Rocha MD MEDICATION REQUEST 03/09/[address] [facility] [address] [facility] [place] [address] Surinder Rocha MD Med Management 03/09/2025 Travel 03/05/2025 Refill [facility] [address] [facility] [place] [address] Jeanette Hooks PA-C Moderate persistent asthma with exacerbation 03/01/[address] [facility] [address] [facility] [place] [address] Surinder Rocha MD PHARMACY CALLS 02/25/[address] [facility] [address] [facility] [place] [address] Surinder Rocha MD New Med Request 02/25/2025 [facility] [address] [facility] [address] [place] [id number] Rosalba Irizarry RN 02/24/[address] [facility] [address] [facility] [place] [address] Surinder Rocha MD Med Management 02/24/2025 [facility] [address] [facility] [address] [place] [address] Rosalba Irizarry, RN 02/23/2025 9:26 AM EDT - 02/23/2025 11:59 PM EDT Hospital Encounter [facility] [address] [facility] [address] [place] [address] Abnormal mammogram Discharge Disposition: Home or Self Care 02/23/2025 9:21 AM EDT - 02/23/2025 11:59 PM EDT Hospital Encounter [facility] 1760 [facility] [address] [address] Abnormal mammogram Discharge Disposition: Home or Self Care 02/22/2025 10:45 AM EDT Office Visit [facility] [address] [facility] [place] [address] Surinder Rocha MD Dysuria (Primary Dx); Acute non-recurrent maxillary sinusitis; Seasonal allergic rhinitis, unspecified trigger; Moderate persistent asthma with exacerbation 02/22/2025 Refill [facility] [address] [place] [address] Jeanette Hooks, MAXX Moderate persistent asthma with exacerbation 02/22/2025 Travel 02/15/2025 Results Follow-Up [facility] CANCER RISK ASSESSMENT [address] [place] [address] Bryan Levyy 02/09/2025 Results Follow-Up [facility] [address] [place] [address] Surinder Rocha MD 02/09/2025 Telephone [facility] [address] [address] Surinder Rocha MD PAPERWORK 02/08/2025 10:51 AM EDT - 02/08/2025 11:59 PM EDT Hospital Encounter [facility] [place] [address] [facility] [address] [place] [address] Abnormal mammogram Discharge Disposition: Home or Self Care 02/08/2025 7:55 AM EDT - 02/08/2025 11:59 PM EDT Hospital Encounter [facility] MAMMOGRAPHY [place] [address] [facility] [address] [place] [address] Abnormal mammogram Discharge Disposition: Home or Self Care 02/08/2025 Travel 02/07/2025 Refill [facility] [address] [place] [address] Jeanette Hooks PA-C Moderate persistent asthma with exacerbation; Acquired hypothyroidism 02/04/2025 9:00 AM EDT - 02/04/2025 11:59 PM EDT Hospital Encounter [facility] [place] [address] [place] [address] Surinder Rocha MD Right foot pain; Left foot pain Discharge Disposition: Home or Self Care 02/04/2025 8:30 AM EDT Office Visit [facility] [address] [place] [address] Surinder Rocha MD Fall in home, [...] Info) Description 08/25/2025 8:30 [place] [address] Health Maintenance Due Date Last Done Comments Annual Gynecologic Pelvic an d Breast Exam 1965 COLOGUARD 2009 COLON CANCER SCREENING 5 YEA R SIGMOIDOSCOPY 2009 CT COLONOGRAPHY 2009 FECAL OCCULT BLOOD TEST 2009 FIT Testing (1 year) 2009 ANNUAL PHYSICAL 09/27/2015 LIPID PANEL 04/07/2025 04/07/2024, 11/2023, 07/31/2022, Additional history exists MAMMOGRAM 02/23/2027 02/23/2025, 11/2024, 12/03/2023, Additional history exists TDAP/TD VACCINES (3 - Td or Tdap) 01/10/2035 025, 04/09/2016 COLONOSCOPY 04/25/2035 04/25/2025, 03/06, 03/31/2023, Additional history exists COLORECTAL CANCER SCREENING 04/25/2035 ZOSTER VACCINE Completed 09/27/2017, 07/29/2017 HEPATITIS C SCREENING Completed 04/14/2019 , 06/03/2016, 06/03/2016, Additional history exists Pneumococcal Vaccine 50+ Completed 10/09/2021 INFLUENZA VACCINE Completed 02/07/2025, , 12/06/2023, Additional history exists Procedures Procedure Name Priority Date/Time Associated Diagnosis Comments SCANNED - COLONOSCOPY 04/25/2025 SCANNED - LABS 04/22/2025 SCANNED - LABS 04/22/2025 SCANNED - LABS 04/22/2025 SCANNED - IMAGING 04/22/2025 SCANNED - IMAGING 03/25/2025 SCANNED - IMAGING [...] Routine 02/23/2025 11:03 AM EDT Abnormal mammogram NON-SAFETY TECHNICIAN CYTOLOGY, [facility] (PETRA, COR, MAD, [...] EST Elevated cholesterol SCANNED - INFLUENZA 12/06/2023 HEPATITIS C ANTIBODY Routine 04/14/2019 10:48 AM EST Possible exposure to STD from Last 3 Months or Most Recently Relevant to Health Maintenance Results * Colonoscopy, Scan (04/25/2025) Surinder Rocha MD CHART REVIEW TABS Final Resu lt * IMAGING SCANNED (04/22/2025) Only the most recent of8 resultswithin the time period is included. Anatomical Region Laterality Modality Radiographic Yanira ging us Surinder Rocha MD IMG DIAGNOSTIC IMAGING ORDERABL ES Final Result * LABS SCANNED (04/22/2025) Only the most recent of8 resultswithin the time period is included. us Surinder Rocha MD LAB BLOOD ORDERABLES Final Resu lt * (ABNORMAL) Urine Culture - Urine, Urine, Clean Catch (03/09/2025 11:36 AM EST) Only the most recent of2 resultswithin the time period is included. Pathologist [facility] Urine Culture Final report(A) [facility] Result 1 Escherichia coli(A) [facility] Comment: Cefazolin with an REZA <=16 predicts susceptibility to the oral agents cefaclor, cefdinir, cefpodoxime, cefprozil, cefuroxime, cephalexin, and loracarbef when used for therapy of uncomplicated urinary tract infections due to E. coli, Klebsiella pneumoniae, and Proteus mirabilis. Greater than 100,000 colony forming units per mL Susceptibility Testing Comment [facility] Comment: S = Susceptible; I = [...] 03/09/2025 11:36 AM EST 03/09/2025 Comment:ANNETTA Palomo [facility] - 03/14/2025 3:07 AM EST Performed at: [address] [place] [id number] Sack Sewer: Vernon Garcia PhD, Phone: [phone] Surinder Rocha MD MICROBIOLOGY - GENERAL ORDERABL ES Final Result [facility] [address] [place] [id number], [facility] [address] [place] [address], * (ABNORMAL) POCT urinalysis dipstick, automated (03/09/2025 11:20 AM EST) Only the most recent of2 resultswithin the time period is included. Pathologist [facility] Color Yellow Yellow, Straw, Dark Yellow, Kaila [facility] Clarity, UA Clear Clear [facility] Specific [place] 1.015 1.005 - 1.030 [facility] pH, Urine 6.0 5.0 - 8.0 [facility] Leukocytes Moderate (2+)(A) Negative [facility] Nitrite, UA Positive(A) Negative [facility] Protein, POC Negative Negative mg/dL [facility] Glucose, UA Negative Negative mg/dL [facility] Ketones, UA Negative Negative [facility] Urobilinogen, UA Normal Normal, 0.2 E.U./dL [facility] Bilirubin Negative Negative [facility] Blood, UA Trace(A) Negative [facility] Lot Number [id number] [facility] Expiration Date 05-27-2026 [facility] Urine 03/09/2025 11:2 0 AM EST us Surinder Rocha MD POINT OF CARE TEST ORDERABLES F inal Result [facility]
[address] [place] [address], * ECG Scan (03/02/2025) Only the most recent of2 resultswithin the time period is included. us Surinder Rocha MD ECG ORDERABLES Final Result * US Fine Needle Aspiration BX 1st [...] during this procedure. us Nallely Handley MD [facility] US ORDERABLES Edited Resul t - Final [...] during this procedure. us Nallely Handley MD [facility] MAMMOGRAPHY ORDERABLES Bijan vicente Result - Final * NON-SAFETY TECHNICIAN CYTOLOGY, [facility] (PETRA,COR,MAD,MAAME) (02/23/2025 10:43 [...] CD19, CD20, CD38, CD45, CD56, CD57, CD123, Sawyer, and Lambda. Interpretation performed by Dr. Lin. [...] Result [facility]
[address] [place] [address], [place] [phone] * (ABNORMAL) [email or web address] GENETIC RISK ASSESSMENT QUESTIONNAIRE - , (02/15/2025 9:55 AM EDT) Rupal 13.4 [facility] MDSave NCCN NCCN met(A) [facility] Comment:High Risk Cancer Ris k Assessment 02/15/2025 9:55 AM EDT Surinder Rocha MD GENETIC TESTING Final Result Performing Organization Address City/[facility] Co de Phone Number [facility]
[address] [place] [address], [place] [phone] * (ABNORMAL) US Breast Bilateral Limited (02/08/2025 [...] Laterality Modality Lower Extremities, Foot Bilateral [facility] 02/09/2025 11:2 6 AM EDT Impressions 02/09/2025 11:30 AM EDT Impression: 1. No acute osseous findings. 2. No signs of crystalline or inflammatory arthropathy. 3. 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 4. Achilles and plantar spurs bilaterally. Electronically Signed: Oscar Hare MD 02/09/2025 11:30 AM EDT Workstation ID: [id number] Narrative 02/09/2025 11:30 AM EDT XR FOOT [...] MD 02/09/2025 11:30 AM EDT Workstation ID: [id number] Surinder Rocha MD IMG DIAGNOSTIC IMAGING ORDERABL [...] 10:4 3 AM EST 04/07/2024 Narrative [facility] (AMBULATORY) - 2024 3:09 AM EST Performed at: [address] [place] [id number] Sack Sewer: Forrest Box MD, Phone: [phone] Patient Fasting: Y Surinder Rocha MD LAB BLOOD ORDERABLES Final Resu lt [facility] (AMBULATORY) [address] [place] [address], [facility] [address] [place] [address], * IMAGING SCANNED (12/06/2023) [facility] CHART REVIEW TABS Final Re sult * Hepatitis C Antibody (04/14/2019 10:48 AM EST) Hep C Virus Ab 0.3 0.0 - 0.9 s/co ratio [facility] Comment: Negative: < 0.8 Indeterminate: 0.8 - 0.9 Positive: > 0.9 The CDC recommends that a positive HCV antibody result be followed up with a HCV Nucleic Acid Amplification test (814885). Blood 04/14/2019 10:4 8 AM EST 04/14/2019 Narrative [facility] (AMBULATORY) - 04/17/2019 7:08 AM EST Performed at: 02 - [facility] [address] [facility], [place], [place] [id number] Sack Sewer: Vernon Garcia PhD, Phone: [phone] us Surinder Rocha MD LAB BLOOD ORDERABLES Final Resu lt [facility] ([facility]BULATORY) [address] [place] [address], [facility] [address] [place] [address], from Last 3 Months or Most Recently [...] Of Support Discussed With: Patient Care Teams Near Eastern Archaeology Lecturer Relationship Specialty Start Date End Date Surinder Rocha MD [address] [place] [address] PCP - General Family Medicine 10/05/19
--- OUTSIDE RECORDS SUMMARY | 2025-04-29 08:43 | XMS_ITS | Encounter Summary ---
Author Organization [facility] y[facility] Address [address] [place] [address] Care Team Providers Care Jack Frame Tender Name Role Phone Surinder Rocha MD Primary Care Provider [phone] Reason for Visit * Reason Comments Med Refill Encounter Details Date Type Department Care Team (Late st Contact Info) Description 04/27/2025 Refill [facility] [address] [place] [address] Surinder Rocha MD [address] [place], [place] [id number] Insomnia, unspecified type Social History Tobacco Use [...] Info) Description 08/25/2025 8:30 [place] [address] documented as of this encounter Visit Diagnoses Diagnosis Insomnia, unspecified type documented in this encounter Additional Health Concerns Assessment Noted Time PHQ-2 Depression Total Score: 1 05/20/19 24 12:36 PM EST documented as of this encounter Care Teams Jack Frame Tender Relationship Specialty Start Date End Date Surinder Rocha MD [address] [place] [address] PCP - General Family Medicine 10/05/19 documented as of this encounter
--- OUTSIDE RECORDS SUMMARY | 2025-04-29 08:43 | XMS_ITS | Encounter Summary ---
Author Organization [facility] Address [address] [place] [address] Care Team Providers Care Maintenance Manager Name Role Phone Surinder Rocha MD Primary Care Provider [phone] Encounter Details Date Type Department Care Team (Late st Contact Info) Description 02/09/2025 Results Follow-Up [facility] [address] [place] [address] Surinder Rocha MD [address] [place], [place] [id number] Social History Tobacco Use Types Packs/Day Years [...] or training? Not on file Preferred Language Malaysian 08/18/2023 PHQ-2 Answer Date Recorded Patient Health [...] Info) Description 08/25/2025 8:30 AM EDT Appointment [place] [id number] documented as of this encounter Visit Diagnoses Not on filedocumented in this encounter Additional Health Concerns Assessment Noted Time PHQ-2 Depression Total Score: 1 05/20/19 24 12:36 PM EST documented as of this encounter Care Teams Maintenance Manager Relationship Specialty Start Date End Date Surinder Rocha [place] [address] PCP - General Family Medicine 10/05/19 documented as of this encounter
--- OUTSIDE RECORDS SUMMARY | 2025-04-29 08:43 | XMS_ITS | Encounter Summary ---
[facility] [address] [place] [address] Care Team Providers Care Employee Communications Manager Name Role Phone Surinder Rocha MD Primary Care Provider Encounter Details Date Type Department Care Team (Late st Contact Info) Description 11/25/2024 Results Follow-Up [facility] [address] [place] [address] Surinder Rocha MD [address] [place], [place] [id number] Social History Tobacco Use Types Packs/Day Years [...] Info) Description 08/25/2025 8:30 AM EDT Appointment [place] [id number] documented as of this encounter Visit Diagnoses Not on filedocumented in this encounter Additional Health Concerns Assessment Noted Time PHQ-2 Depression Total Score: 1 05/20/19 24 12:36 PM EST documented as of this encounter Care Teams Employee Communications Manager Relationship Specialty Start Date End Date [place] [address] PCP - General Family Medicine 10/05/19 documented as of this encounter
--- OUTSIDE RECORDS SUMMARY | 2025-04-29 08:43 | XMS_ITS | Clinical Summary ---
Author Organization [facility] Address [address] [facility] [address] [place] [address] Care Team Providers Care Plywood Factory Worker Name Role Phone Surinder Rocha MD Primary Care Provider [phone] Allergies Active Allergy Reactions Criticality Noted Date [...] complete this topic Insurance ANTH Care Teams Plywood Factory Worker Relationship Specialty Start Date End Date Surinder Rocha MD [address] [place] [place] [address] PCP - General Family Medicine 08/02/22
--- OUTSIDE RECORDS SUMMARY | 2025-04-29 08:43 | XMS_ITS | Encounter Summary ---
[facility] [address] [place] [address] Care Team Providers Care Refrigeration Operator Name Role Phone Surinder Rocha MD Primary Care Provider [phone] Encounter Details Date Type Department Care Team [...] Info) Description 08/25/2025 8:30 AM EDT Appointment [address] [address] documented as of this encounter Visit Diagnoses Not on filedocumented in this encounter Additional Health Concerns Assessment Noted Time PHQ-2 Depression Total Score: 1 05/20/19 24 12:36 PM EST documented as of this encounter Care Teams Refrigeration Operator Relationship Specialty Start Date End Date Surinder Rocha MD [address] [place] [address] PCP - General Family Medicine 10/05/19 documented as of this encounter
--- OUTSIDE RECORDS SUMMARY | 2025-04-29 08:43 | XMS_ITS | Encounter Summary ---
[facility] [address] [place] [address] Care Team Providers Care Mule Operator Name Role Phone Surinder Rocha MD Primary Care Provider [phone] Reason for Visit * Reason Comments Med Refill Encounter Details Date Type Department Care Team (Late st Contact Info) Description 03/21/2025 Refill [facility] MED[facility] [address] [place] [address] Taylor Tabor PA [address] [place], [place] [id number] Muscle spasm Social History Tobacco Use Types [...] Info) Description 08/25/2025 8:30 [place] [address] documented as of this encounter Visit Diagnoses Diagnosis Muscle spasm Spasm of muscle documented in this encounter Additional Health Concerns Assessment Noted Time PHQ-2 Depression Total Score: 1 05/20/19 24 12:36 PM EST documented as of this encounter Care Teams Mule Operator Relationship Specialty Start Date End Date Surinder Rocha MD [address] [place] [address] PCP - General Family Medicine 10/05/19 documented as of this encounter
--- OUTSIDE RECORDS SUMMARY | 2025-04-29 08:43 | XMS_ITS | Encounter Summary ---
[facility] [address] [place] [address] Care Team Providers Care Kitchenwhere Maker Name Role Phone Surinder Rocha MD Primary Care Provider [phone] Reason for Visit * Reason Onset Date Comments New Med Request 02/25/2025 Encounter Details Date Type Department Care Team (Late st Contact Info) Description 02/25/2025 Telephone [facility] [address] [place] [address] Surinder Rocha MD [address] [place], [place] [id number] New Med Request Social History Tobacco Use [...] or training? Not on file Preferred Language Afghan 08/18/2023 PHQ-2 Answer Date Recorded Patient Health [...] [facility] - [address] [phone] [facility] [phone] FX Additional notes: PATIENT WAS PRESCRIBED THIS ANTIBIOTIC A LIQUID FORM, BUT IT IS VERY HARD ON HER STOMACH. PATIENT IS WANTING TO KNOW IF A PILL FORM CAN BE CALLED IN INSTEAD documented in this encounter Plan of Treatment Upcoming Encounters Date Type Department Care Team (Late st Contact Info) Description 08/25/2025 8:30 AM EDT Appointment [place] [id number] documented as of this encounter Visit Diagnoses Not on filedocumented in this encounter Additional Health Concerns Assessment Noted Time PHQ-2 Depression Total Score: 1 05/20/19 24 12:36 PM EST documented as of this encounter Care Teams Kitchenwhere Maker Relationship Specialty Start Date End Date Surinder Rocha MD [address] [place] [address] PCP - General Family Medicine 10/05/19 documented as of this encounter
--- OUTSIDE RECORDS SUMMARY | 2025-04-29 08:43 | XMS_ITS | Encounter Summary ---
Author Organization [facility] Address [address] [place] [address] Care Team Providers Care Health Club Attendant Name Role Phone Surinder Rocha MD Primary Care Provider [phone] Reason for Referral * Consultation (Routine) - Closed Specialty Diagnoses / Procedures Referred By Ezio harden Referred To Contact Podiatry Diagnoses Foot pain, bilateral Procedures ME OFFICE/OUTPATIENT NEW MODERATE MDM 45 MINUTES Surinder Rocha MD [address] [place] [address] Phone: tel: fax: Phong Evonne Alina, DPM [address] [place] [address] [place] [address] Phone: tel: fax: Referral ID Status Reason Start Date Expiration Date V isits Requested Visits Authorized [id number] Closed Specialty Services Required 03/21/2025 06/20/2026 1 1 Reason for Visit * Reason Onset Date Comments Appointment 03/18/2025 Encounter Details Date Type Department Care Team (Late st Contact Info) Description 03/18/2025 Telephone [facility] [address] [place] [address] Surinder Rocha MD [address] [place] [address] [place] [address] Appointment Social History Tobacco Use Types Packs/Day [...] or training? Not on file Preferred Language Portuguese 08/18/2023 PHQ-2 Answer Date Recorded Patient Health [...] Hannah Chung - 03/18/2025 11:47 AM ESTSummary: razor grinder referral Cielo would like to have a referral placed to see a razor grinder. She would like to go [place]. documented in this encounter Plan of Treatment Upcoming Encounters Date Type Department Care Team (Late st Contact Info) Description 08/25/2025 8:30 [place] [address] documented as of this encounter Visit Diagnoses Diagnosis Foot pain, bilateral- Primary documented in this encounter Additional Health Concerns Assessment Noted Time PHQ-2 Depression Total Score: 1 05/20/19 24 12:36 PM EST documented as of this encounter Care Teams Health Club Attendant Relationship Specialty Start Date End Date Surinder Rocha MD [address] [place] [address] PCP - General Family Medicine 10/05/19 documented as of this encounter
--- OUTSIDE RECORDS SUMMARY | 2025-04-29 08:43 | XMS_ITS | Encounter Summary ---
[facility] Address [address] [place] [address] Care Team Providers Care Christian Ministries Professor Name Role Phone Surinder Rocha MD Primary Care Provider [phone] Reason for Visit * Reason Comments Med Refill Encounter Details Date Type Department Care Team (Late st Contact Info) Description 07/13/2021 Refill [facility] FAMILY MEDICINE [address] [place] [phone] Surinder Rocha MD [address] [place], [place] [id number] Gastroesophageal reflux disease, unspecified whether esophagitis present; [...] AM EDT Appointment [facility] [address] [place], [place] [id number] documented as of this encounter Visit Diagnoses Diagnosis Gastroesophageal reflux disease, unspecified whether esophagitis present Adjustment disorder with anxious mood Adjustment disorder with anxiety Idiopathic peripheral neuropathy Unspecified hereditary and idiopathic peripheral neuropathy Insomnia, unspecified type documented in this encounter Care Teams Christian Minist[employer] Professor Relationship Specialty Start Date End Date Surinder Rocha MD [address] [place] [address] PCP - General Family Medicine 10/05/19 documented as of this encounter
--- OUTSIDE RECORDS SUMMARY | 2025-04-29 08:43 | XMS_ITS | Encounter Summary ---
[facility] Address [address] [place] [address] Care Team Providers Care Flooring Helper Name Role Phone Surinder Rocha MD Primary Care Provider [phone] Encounter Details Date Type Department Care Team (Late st Contact Info) Description 03/14/2025 Results Follow-Up [facility] FAMILY MEDICINE [address] [place] [address] Surinder Rocha MD [address] [place], [place] [id number] Social History Tobacco Use Types Packs/Day Years [...] Info) Description 08/25/2025 8:30 AM EDT Appointment [place] [id number] documented as of this encounter Visit Diagnoses Not on filedocumented in this encounter Additional Health Concerns Assessment Noted Time PHQ-2 Depression Total Score: 1 05/20/19 24 12:36 PM EST documented as of this encounter Care Teams Flooring Helper Relationship Specialty Start Date End Date Surinder [place] [address] PCP - General Family Medicine 10/05/19 documented as of this encounter
--- OUTSIDE RECORDS SUMMARY | 2025-04-29 08:43 | XMS_ITS | Encounter Summary ---
[facility] Address [address] [place] [address] Care Team Providers Care Gold Stamper Name Role Phone Surinder Rocha MD Primary Care Provider [phone] Reason for Visit * Reason Onset Date Comments PHARMACY CALL 04/13/2025 Encounter Details Date Type Department Care Team (Late st Contact Info) Description 04/13/2025 Telephone [facility] FAMILY MEDICINE [address] [place] [address] Surinder Rocha MD [address] [place], [place] [id number] PHARMACY CALL Social History Tobacco Use Types [...] - 04/13/2025 12:02 PM EST Pharmacy Name: [facility] Pharmacy customer relations representative name: BOSSMAN Pharmacy customer relations representative phone number: [phone] What medication are you calling in regards to: pantoprazole (Protonix) 40 MG EC tablet What question does the pharmacy have: PHARMACY STATED THAT PATIENT'S INSURANCE WILL ONLY COVER MEDICATION TAKEN ONCE DAILY NOT TWO TIMES A DAY documented in this encounter Plan of Treatment Upcoming Encounters Date Type Department Care Team (Late st Contact Info) Description 08/25/2025 8:30 AM EDT Appointment [place] [id number] [address] documented as of this encounter Visit Diagnoses Diagnosis Gastroesophageal reflux disease, unspecified whether esophagitis present documented in this encounter Additional Health Concerns Assessment Noted Time PHQ-2 Depression Total Score: 1 05/20/19 24 12:36 PM EST documented as of this encounter Care Teams Gold Stamper Relationship Specialty Start Date End Date Surinder Rocha MD [address] [place], [place] [id number] PCP - General Family Medicine 10/05/19 documented as of this encounter
--- OUTSIDE RECORDS SUMMARY | 2025-04-29 08:43 | XMS_ITS | Encounter Summary ---
Author Organization [facility] Address [address] [place] [address] Care Team Providers Care Dry Cans Back Tender Name Role Phone Surinder Rocha MD Primary Care Provider [phone] Reason for Visit * Reason Comments Med Refill Encounter Details Date Type Department Care Team (Late st Contact Info) Description 04/25/2025 Refill [facility] FAMILY MEDICINE [address] [place] [address] Jeanette Hooks, MAXX [address] [facility] [place] [address] Moderate persistent asthma with exacerbation Social History [...] Info) Description 08/25/2025 8:30 [place] [address] documented as of this encounter Visit Diagnoses Diagnosis Moderate persistent asthma with exacerbation Unspecified asthma, with exacerbation documented in this encounter Additional Health Concerns Assessment Noted Time PHQ-2 Depression Total Score: 1 05/20/19 24 12:36 PM EST documented as of this encounter Care Teams Dry Cans Back Tender Relationship Specialty Start Date End Date Surinder Rocha MD [address] [place] [address] PCP - General Family Medicine 10/05/19 documented as of this encounter
--- OUTSIDE RECORDS SUMMARY | 2025-04-29 08:43 | XMS_ITS | Encounter Summary ---
Author Organization [facility] yste Address [address] [place] [address] Care Team Providers Care [employer] Manufacturing Set Up Technician Name Role Phone Surinder Rocha MD Primary Care Provider [phone] Reason for Visit * Reason Comments Med Refill Encounter Details Date Type Department Care Team (Late st Contact Info) Description 04/06/2025 Refill [facility] FAMILY MEDICINE [address] [place] [address] Jeanette Hooks, MAXX [address] [facility] [address] [place], [place] [phone] Moderate persistent asthma with exacerbation Social History [...] Description 08/25/2025 8:30 [place] [address] documented as of this encounter Visit Diagnoses Diagnosis Moderate persistent asthma with exacerbation Unspecified asthma, with exacerbation documented in this encounter Additional Health Concerns Assessment Noted Time PHQ-2 Depression Total Score: 1 05/20/19 24 12:36 PM EST documented as of this encounter Care Teams [employer] Set Up Technician Relationship Specialty Start Date End Date Surinder Rocha MD [address] [place] [address] PCP - General Family Medicine 10/05/19 documented as of this encounter
--- OUTSIDE RECORDS SUMMARY | 2025-04-29 08:43 | XMS_ITS | Encounter Summary ---
[facility] [address] [place] [address] Care Team Providers Care Foot Press Operator Name Role Phone Surinder Rocha MD Primary Care Provider [phone] Reason for Visit * Reason Onset Date Comments Med Management 03/09/2025 Encounter Details Date Type Department Care Team (Late st Contact Info) Description 03/09/2025 Telephone [facility] FAMILY MEDICINE [address] [place] [address] Surinder Rocha MD [address] [place], [place] [phone] Med Management Social History Tobacco Use Types [...] or training? Not on file Preferred Language Azeri 08/18/2023 PHQ-2 Answer Date Recorded Patient Health [...] PM EST Okay, I will send in [facility]. * Telephone Encounter - Kaila Sykes [...] Rep - 03/09/2025 12:06 PM EST Caller: [facility] - [place], [place] - [address] [phone] [facility] [phone] Relationship: Pharmacy Best call back number: [phone] What was the call regarding: PHARMACY HAS [...] Info) Description 08/25/2025 8:30 AM EDT Appointment [facility] [address] [place] [address] documented as of this encounter Visit Diagnoses Not on filedocumented in this encounter Additional Health Concerns Assessment Noted Time PHQ-2 Depression Total Score: 1 05/20/19 24 12:36 PM EST documented as of this encounter Care Teams Foot Press Operator Relationship Specialty Start Date End Date Surinder Rocha MD [address] [place] [address] PCP - General Family Medicine 10/05/19 documented as of this encounter
--- OUTSIDE RECORDS SUMMARY | 2025-04-29 08:44 | XMS_ITS | Encounter Summary ---
Author Organization [facility] Address [address] [place] [address] Care Team Providers Care Woven Paper Hat Mender Name Role Phone Surinder Rocha MD Primary Care Provider Reason for Visit * Reason Comments Med Refill Encounter Details Date Type Department Care Team (Late st Contact Info) Description 10/07/2019 Refill [facility] [address] [place] [address] Surinder Rocha MD [address] [place], [place] [phone] Complicated migraine Social History Tobacco Use Types [...] Info) Description 08/25/2025 8:30 AM EDT Appointment [facility] [address] [place] [address] [place] [id number] documented as of this encounter Visit Diagnoses Diagnosis Complicated migraine Migraine, unspecified, without mention of intractable migraine without mention of status migrainosus documented in this encounter Additional Health Concerns Infection Onset Date Last Indicated Resolved Time COVID Screen (preop/placement) 04/24/2020 04/24/2020 04/25/2020 1:35 AM EST COVID Screen (preop/placement) 08/19/2020 08/19/2020 08/19/2020 3:31 AM EDT documented as of this encounter Care Teams Woven Paper Hat Mender Relationship Specialty Start Date End Date Surinder Rocha MD [address] [place] [address] PCP - General Family Medicine 10/05/19 documented as of this encounter
--- OUTSIDE RECORDS SUMMARY | 2025-04-29 08:44 | XMS_ITS | Encounter Summary ---
[facility] [address] [place] [address] Care Team Providers Care Time Recorder Name Role Phone Surinder Rocha MD Primary Care Provider [phone] Reason for Visit * Reason Comments Med Refill Encounter Details Date Type Department Care Team (Late st Contact Info) Description 11/06/2019 Refill [facility] FAMILY MEDICINE [address] [place] [phone] January Flores DO [address] [place] [address] Insomnia, unspecified type Social History Tobacco Use [...] [facility] [address] [place] [id number] documented as of this encounter Visit Diagnoses Diagnosis Insomnia, unspecified type documented in this encounter Additional Health Concerns Infection Onset Date Last Indicated Resolved Time COVID Screen (preop/placement) 04/24/2020 04/24/2020 04/25/2020 1:35 AM EST COVID Screen (preop/placement) 08/19/2020 08/19/2020 08/19/2020 3:31 AM EDT documented as of this encounter Care Teams Time Recorder Relationship Specialty Start Date End Date Surinder Rocha MD [address] [place] [address] PCP - General Family Medicine 10/05/19 documented as of this encounter
--- OUTSIDE RECORDS SUMMARY | 2025-04-29 08:44 | XMS_ITS | Data Portability ---
Author Organization [facility] CHRYSTAL Pfeiffer [place] CLOSED Address [address] [facility] [address] [place] [address] Care Team Providers Care Timekeeping Supervisor Name Role Phone BALJIT DAVID Primary Care Provider [phone] Assessment No assessment recorded. Plan of Treatment Reminders Order Date Submit Date Provider Last Modified By Organization Details Last Modified Time Details Appointments None recorded. Lab None recorded. Referral None recorded. Procedures None recorded. Surgeries None recorded. Imaging None recorded. Medication Orders betametha sone valerate 0.1 % topical ointment 2021 022 [facility] [address] [place], [address], 2 12:06:15 Compound Premarin Nasal Prosperity 2019 020 INTERFACE [employer], [address], [place], [address], 0 13:46:10 meclizine 25 mg chewable tablet 2019 020 INTERFACE [facility] [address] [place], [address], 0 13:43:15 Pepcid 20 mg tablet 2018 019 [email or web address] [facility] [address] [place], [address], 9 09:40:43 Bactrim DS 800 mg-160 mg tablet 2018 019 INTERFACE [facility] [address] [place], [address], 9 08:44:50 Xyzal 5 mg tablet 2018 019 INTERFACE [facility] [address] [place], [address], 9 08:44:46 Patient TargetsNo targets recorded. Patient Instructions Encounter Date Encounter Id Patient Instructions Last Modified By Organization Details Last Modified Time 03/15/2019 [id number] 1. Bactrim DS 800-160mg PO BID for [...] two with Dr. Liang for continued monitoring. [facility] Not available 03/15/2019 09:01:36 04/07/2019 [id number] 1. Laryngoscopy performed ; clinical photos obtained. [...] follow-up. [email or web address] Not available 04/07/2019 08:52:06 04/20/2020 [id number] dizziness: care instructions [email or web address] Not available 04/20/2020 13:43:01 It was a dante van seeing this patient in followup today. LEFT CERUMEN CLEANED FROM TM TODAY. HISTORY AND EXAM SUGGEST POSSIBLE BILATERAL PATULOUS EUSTACHIAN TUBE, ALSO DYSEQUILIBRIUM WITH NORMAL DIGOENES HALLPIKES TODAY. AUDIO OBTAINED AND REVIEWED. Going [...] follow-up. mckay Not available 04/20/2020 13:33:31 04/20/2020 [id number] dizziness: care instructions lexy Not available 04/20/2020 13:16:46 hearing loss: ca re instructions lexy Not available 04/20/2020 13:16:47 11/07/2021 [id number] It was a dante van seeing this [...] scan of sinuses. Recheck 3-4 months at [place] office We reviewed the pertinent anatomy and [...] ast No observ ation record ed. [email or web address] [facility] [address] [facility], [place], [address], 12/09/2023 16:26:50 Result Notes None recorded. Problems Name Problem SNOMED Code Status Onset Date Resolution Date Notes Provider Name and Address Organization Details Recorded Time Allergic rhinitis 12646880 Active 2015 From Automated Load;Provi rin: Tamar Liang;St atus: Active Not Available [facility] 6 05:46:04 Deviated nasal septum 067552631 Active 2015 From Automated Load;Provi rin: Tamar Liang;St atus: Active Not Available [facility] 6 05:46:04 Dizziness and giddiness 268537262 Active 2015 From Automated Load;Provi rin: Tamar Liang;St atus: Active Not Available [facility] 6 05:46:04 Sensorine ural hearing loss 99493930 Active 2015 Provider: Tamar Liang; atus: Active Not Available [facility] 6 05:46:04 Sensorine ural hearing loss of bilateral ears 497938259 Active 2015 From Automated Load;Provi rin: Tamar Liang; atus: Active Not Available [facility] 6 05:46:04 Chronic cystitis 91473134 Active 2015 From Automated Load;Provi rin: Gary Toro Jr;Sta tus: Active Not Available [facility] 6 05:46:04 Dysuria 49473025 Active 2015 From Automated Load;Provi rin: Gary Toro Jr;Sta tus: Active Not Available [facility] 6 05:46:04 Increased frequency of urination 221408096 Active 2015 From Automated Load;Provi rin: Gary Toro Jr;Sta tus: Active Not Available [facility] 6 05:46:04 Problem Notes None recorded. Procedures Surgical History Date Name Laterality Status Provider Name and Address Organization Details Recorded Time 11/08/19 22 Binocular Microscopy completed Janell Cavanaugh [facility] 11/07/2021 11:38:25 09/15/19 21 Binocular Microscopy cancelled DAKOTA CHOU MD [facility] [place], [address], [facility] 09/13/2020 17:05:00 09/15/19 21 Cerumen removal - Instruments, Unilateral cancelled DAKOTA CHOU MD [facility] [place], [address], [facility] 09/13/2020 17:05:00 04/20/20 20 Tympanogram completed UGO SURESH AUD [address] [place], [address], [facility] 04/20/2020 13:15:51 04/20/20 20 Audiogram completed UGO SURESH, AUD [address] [place], [address], [facility] 04/20/2020 13:15:49 04/20/20 20 Chester-Hallpike completed UGO SURESH, AUD [address] [place], [address], [facility] 04/20/2020 13:16:31 04/20/20 20 Binocular Microscopy completed DAKOTA CHOU MD [address] [place], [address], [facility] 04/20/2020 13:30:50 04/20/20 20 Cerumen removal - Instruments, Unilateral completed DAKOTA CHOU MD [address] [place], [address], [facility] 04/20/2020 13:30:12 04/07/20 19 Laryngoscopy Flex completed Loyda Nicolas [facility] 04/07/2019 08:45:25 03/05/20 19 Tympanogram completed UGO SURESH, AUD [address] [place], [address], [facility] 03/05/2019 15:18:06 03/05/20 19 Audiogram completed UGO SURESH, AUD [address] [place], [address], [facility] 03/05/2019 15:18:04 09/26/19 19 Ears/Nose/Throat Surgery completed Lidia Robison [facility] 03/05/2019 14:57:32 Joint Replacement completed Wanda Vega [facility] 08/06/2017 09:52:17 Other completed Wanda Vega [facility] 08/06/2017 09:52:47 [facility] 03/05/2019 14:47:12 [facility]lect[facility] 03/05/2019 14:47:35 Imaging Results None recorded. Procedure Notes None recorded. Medical Equipment None Reported. Allergies Allergen ID Allergen Name Allergen Category Reaction Reaction Severity Criticality Documentation Date Start Date Code Code System Note Provider Name and Address Organization Details Recorded Time 599824 Cymbalta medicatio n Not available Not available Not available 03/28/20162013 57598 4 RxNorm Comme nt: Creat ed By: Butle r Dallas e;Cre ated Date: 05/02 9:21: 34 AM; Not Available [facility] 6 12:43:11 [id number] Lyrica medicatio n other Not available Not available 03/29/20162011 26914 1 RxNorm React ion: LANG LONGORIA ING; Comme nt: Creat ed By: Jerica Peoples sa;Cr eated Date: 2011 7:30: 01 AM; Not Available [facility] 6 04:38:16 798422 latex environme nt,medica tion Not available Not available Not available 03/29/20162010 09049 91 RxNorm Comme nt: Creat ed By: Delfina Siddiqi is;Cr eated Date: 2010 12:00 :48 PM; Not Available [facility] 6 05:28:45 Medications Name Sig Start Date Stop Date Status Note LastModified by Organization Details LastModified Time binaxnow covid-19 ag card home test kit active Not Available Not Available Not Available eq sinus 12-hour 120mg tab TAKE 1 TABLET BY MOUTH TWICE DAILY NEEDED FOR CONGESTI ON active Not Available Not Available No t Available Compound Premarin Nasal Prosperity 25mg/30m l- 3 sprays in affected nostril [...] Not Available No t Available Fluarix Quad 4770-6250 (PF) 60 mcg (15 mcg x 4)/0.5 mL IM syringe 03/05 completed Not Available Not Available Not Available Shingrix (PF) 50 mcg/0.5 mL intramuscu lar suspension , kit 03/05 completed Not Available Not Available Not Available Fluzone Quad (PF) 60 mcg (15 mcg x 4)/0.5 mL IM syringe 03/15 completed Not Available Not Available Not Available Fluzone Quad 9457-5837 (PF) 60 mcg (15 mcg x 4)/0.5 [...] Address Organization Details Last Updated DateTime 2 819034. 12 g 42.6 kg/m2 170.18 cm 98.9 [degF] 98 % 88 /min 131/93 mm[Hg] [facility] 2 10:56:36 Date Recorded Body height Body mass index (BMI) Body weight Heart rate Oxygen saturation Body temperature Systolic And Diastolic Provider Name and Address Organization Details Last Updated DateTime 9 170.18 cm 0 kg/m2 4.54 g 98 /min 99 % 97.6 [degF] 132/84 mm[Hg] [facility] 9 08:06:05 Date Recorded Body height Body mass index (BMI) Body weight Body temperature Heart rate Systolic And Diastolic Provider Name and Address Organization Details Last Updated DateTime 9 170.18 cm 35.5 kg/m2 694062. 31 g 97.5 [degF] 90 /min 105/70 mm[Hg] Jayne Multani [facility] 9 08:00:42 Date Recorded Body height Body mass index (BMI) Body weight Body temperature Heart rate Oxygen saturation Systolic And Diastolic Provider Name and Address Organization Details Last Updated DateTime 0 170.18 cm 37 kg/m2 293081. 8 g 97.4 [degF] 86 /min 94 % 123/77 mm[Hg] Allison Fox [facility] 0 12:53:25 Social History Question Answer Notes LastModified by Organizat ion Details LastModified Time Tobacco Smoking Status Never [facility]oker [facility] 08/06/2017 09:51:59 How Much Tobacco Do You Chew? None [email or web address] Information not available 03/05/2019 What Was The Date Of Your Most Recent Tobacco Screening? 09/24/2017 Information n ot available 06/22/2019 How Much Tobacco Do You Smoke? No [email or web address] Information not available 03/05/2019 Sex: Unknown Functional Status Question Answer Note LastModified by Organizat ion Details LastModified Time What is your level of alcohol consumption? None [email or web address] Information not available 08/06/2017 Do you or have you ever used smokeless tobacco? Never used smokeless tobacco Information not available 03/05/2019 Mental Status None [...] History Condition Response Emphysema N COPD N Arthritis Y Acid Reflux (GERD) Y Rheumatoid Arthritis N Diabetes N Bleeding Disorder N Asthma N Heart Disease N Hypertension N Gynecological HistoryNo gynecological history recorded. Obstetrics History GPAL:G 0 P 0 0 0 0 Past Encounters Encounter ID Performer Location Encounter Start Date Encounter Closed Date Diagnosis/Indication Diagnosis SNOMED-CT Code Diagnosis ICD10 Code Diagnosis IMO Codes Diagnosis Note [id number] JAMISON FRANCIS MD [address] [address] [address] 08/06/2017 09:35:10 08/06/2017 10:20:27 Keratoconjunctivitis sicca, not specified as Sj gren's 69451964 H16.223 she has ongoing worsening dry mouth [...] dose makes her sleepy. she is on correction amitriptyl ine at bed time, 50 mg po qhs. This would make her dry also but we might need to change it to some other medication to help her sleep. [id number] JAMISON FRANCIS MD [facility] [address] [address] 09/24/2017 08:35:13 09/24/2017 09:30:09 Keratoconjunctivitis sicca, not specified as Sj gren's 93254560 H16.223 Chronic and with negative studies. Normal [...] dose makes her sleepy. she is on exterminator amitriptyl ine at bed time, 50 mg po qhs. Low salt and no sugar diet is the way to go. Achilles tendinitis 1165 4001 M76.61 M76.62 she has rather severe bilateral chronic achilles tendinopat hy with posterior heel spurs. I would suggest to avoid steroid injections at the site due to risk for tendon rupture. Local care, PT and use of voltaren. [id number] TAMAR LIANG MD [place] [facility] CLOSED [address] [place] [address] 03/05/2019 14:18:58 03/09/2019 08:17:22 Ear pressure sensation 697604831 H93.8X9 Eczema of external auditory canal 19134286 H60.549 - L>>R Nasal vestibulitis 05672 000 J34.89 - Bilaterall y R>>L Cellulitis of face 2001 L03.211 - Upper lip and nasal labial folds Sensorineu ral hearing loss of bilateral ears 225999780 H90.3 - Audiogram 03/05/19: Type A tymps bilaterall y. Right moderate to severe SNHL and Left moderate SNHL [id number] KRISTA DOMÍNGUEZ [facility] CLOSED [address] [place] [address] 03/05/2019 15:07:29 03/05/2019 16:07:49 Sensorineural hearing loss of bilateral ears 018575827 H90.3 Bilateral earache 205991 003 H92.03 Bilateral tinnitus 85932 86457 102 H93.13 [id number] REGINO REYES APRN [place] [facility] CLOSED [address] [place] [address] 03/15/2019 08:00:06 03/17/2019 14:39:46 Eczema of external auditory canal 25380909 H60.543 - L>R - 03/15/19: EAC's and TM's clear Nasal vestibulitis 67701 000 J34.89 - Bilateral - slow improvemen t Cellulitis of face 2001 L03.211 - Upper lip and nasal labial folds - slow improvemen t - allergic vs viral vs staph Ear pressu re sensation 999273823 H93.8X3 - L>R Sensorineu ral hearing loss of bilateral ears 936810567 H90.3 - Audiogram 03/05/19: Type A tymps bilaterall y. Right moderate to severe SNHL and Left moderate SNHL Dysfunctio n of bilateral eustachian tubes 2313022181 025250 H69.93 Posterior rhinorrhea 758 95021 R09.82 - chronic PND - AR vs VMR On examina tion - macroglossia 737420222 K14.8 [id number] MD REJI FRANCO [facility] [address] [place] [address] 04/07/2019 07:55:48 04/12/2019 09:57:05 Nasal vestibulitis 79800094 J34.89 - resolving Cellulitis of face 2001 L03.211 - Upper lip and nasal labial folds resolving Sensorineu ral hearing loss of bilateral ears 880416978 H90.3 - Audiogram 03/05/19: Type A tymps bilaterall y. Right moderate to severe SNHL and Left moderate SNHL Skin ulcer of nose 23410 3000 J34.0 Migraine 63662482 G43.90 9 Dysphagia 83808284 R13.1 0 Feeling of lump in throat 054880513 F45.8 Dysfunctio n of bilateral eustachian tubes 4908851880 866844 H69.93 Ear pressu re sensation 621551048 H93.8X9 Laryngopha ryngeal reflux 089288648 K21.9 Hiatal hernia 04170271 K 44.9 [id number] DAKOTA CHOU MD [place] [facility] CLOSED [address] [place] [address] 04/20/2020 12:45:41 04/20/2020 13:49:38 Nasal vestibulitis 00269036 J34.89 - resolving Cellulitis of face 2001 L03.211 - Upper lip and nasal labial folds resolving Sensorineu ral hearing loss of bilateral ears 478175276 H90.3 - Audiogram 03/05/19: Type A tymps bilaterall y. Right moderate to severe SNHL and Left moderate SNHL Skin ulcer of nose 60746 3000 J34.0 Migraine 90359975 G43.90 9 Dysphagia 64103084 R13.1 0 Feeling of lump in throat 196337132 F45.8 Dysfunctio n of bilateral eustachian tubes 6980861008 321836 H69.93 Ear pressu re sensation 670919675 H93.8X9 Laryngopha ryngeal reflux 941991998 K21.9 Hiatal hernia 00815946 K 44.9 Patulous e ustachian tube 24804594 H69.03 -SUSPECT BILATERAL, START PREMARIN NASAL SPRAY. Impacted c erumen of bilateral ears 0223714965 731287 H61.23 -CLEANED 04/20/20 Dizziness 316438135 R42 -04/20/20 DIOGENES HALLPIKES NORMAL. [id number] KRISTA DOMÍNGUEZ [facility] [place] [facility] CLOSED [address] [place] [place] [address] 04/20/2020 13:02:07 04/20/2020 14:02:38 Sensorineural hearing loss of bilateral ears 431902979 H90.3 Bilateral tinnitus 35863 53473 102 H93.13 Dizziness and giddiness 774758350 R42 [id number] DAKOTA CHOU MD [place] [facility] [address] [place] [address] 11/07/2021 10:50:36 11/07/2021 11:43:02 Sensorineural hearing loss of bilateral ears 951045888 H90.3 - Audiogram 03/05/19: Type A tymps bilaterall y. Right moderate to severe SNHL and Left moderate SNHL Dysfunctio n of bilateral eustachian tubes 8399965299 659582 H69.93 Eczema of external auditory canal 69519326 H60.549 - 11/07/2021 - LEFT WORSE ; Betamethas one Valerate cream prescribed Retraction of tympanic membrane 19521175 H73.899 - 11/07/2021 - left sided History of surgery 45953 5003 Z98.890 - Sinus surgery- Tonsillect johana Examination of ear 15452 0007 Z01.10 -BILATERAL Bilateral earache 487640 003 H92.03 - 11/07/2021 - intermitte nt Obstructiv e sleep apnea syndrome 47690767 G47.33 CONTINUE CPAP Health Concerns Section Related Observation LastModified by Organization Detai ls LastModified Time None Recorded Concern Status LastModified by Organization Details LastModified Time None Recorded Advance Directives Directive None Recorded Payers Insurance Date Sequence Insurance Name Policy Number Policy Hairston Covered Member ID Hairston Member ID Guarantor Name 12/14/2023 1 [place] [id number] Cielo Chase [id number] Cielo Chase Notes Date Note Type [...] bilateral tinnitus for several years. Yolanda aggarwal [facility] 03/31/2019 08:41:09 04/07/2019 text/html Cielo returns [...] is doing well otherwise. TAMAR LIANG MD [address] [place] [address], [address], [facility] 04/07/2019 08:52:22 04/20/2020 text/html This patient returns for recheck of EARS. Since last visit patient reports no change in symptoms with flonase. SHE REPORTS EAR PRESSURE, HEARING HER BREATHING, DIZZINESS WITH BENDING OVER, AND SOME EARACHES IN THE COLD. 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 ARTHRITIS, FIBROMYALGIA, GERD, ECZEMA, S/P [facility] 09/25/18 DR. LIANG SOC: WORKS [facility] AT [facility] [place] 04/07/20 DR. LIANG: Cielo returns today in [...] is doing well otherwise. DAKOTA CHOU MD [address] [place] [address], [address], [facility] 04/20/2020 13:43:08 11/07/2021 text/html This patient returns [...] sleep apnea. 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, [address], [place] [facility] 11/08/2021 17:08:25 OBGyn Episode No OBEpisode recorded.
--- OUTSIDE RECORDS SUMMARY | 2025-04-29 08:44 | XMS_ITS | Encounter Summary ---
[facility] [address] [place] [address] Care Team Providers Care Technical Photographer Name Role Phone Surinder Rocha MD Primary Care Provider [phone] Reason for Visit * Reason Onset Date Comments Med Refill 11/09/2019 Encounter Details Date Type Department Care Team (Late st Contact Info) Description 11/09/2019 Refill [facility] [address] [place] [address] January Flores DO [address] [place], [place] [id number] Adjustment disorder with anxious mood; Insomnia, unspecified [...] Info) Description 08/25/2025 8:30 AM EDT Appointment [facility] [address] [facility] [address] [place], [place] [id number] documented as of this encounter Visit Diagnoses Diagnosis Adjustment disorder with anxious mood Adjustment disorder with anxiety Insomnia, unspecified type documented in this encounter Additional Health Concerns Infection Onset Date Last Indicated Resolved Time COVID Screen (preop/placement) 04/24/2020 04/24/2020 04/25/2020 1:35 AM EST COVID Screen (preop/placement) 08/19/2020 08/19/2020 08/19/2020 3:31 AM EDT documented as of this encounter Care Teams Technical Photographer Relationship Specialty Start Date End Date Surinder Rocha MD [address] [place] [address] PCP - General Family Medicine 10/05/19 documented as of this encounter
--- NOTE | 2025-04-29 09:00 | US_ITS ---
FINAL REPORT CLINICAL HISTORY: skin changes, decreased pulses,claudication,rest pain COMPARISON: None FINDINGS: ANKLE-BRACHIAL PRESSURE INDICES Pressure indices are as follows: RIGHT LOWER EXTREMITY: Ankle-brachial pressure index: 1.21 Comments: Normal LEFT LOWER EXTREMITY: Ankle-brachial pressure index: 1.23 Comments: Normal IMPRESSION: No evidence of significant obstructive peripheral vascular disease of the lower extremities Reviewed, Interpreted and Dictated by Manny Horner MD Transcribed by Jasmin Lawrence Authenticated and [facility]
[2025-04-29 09:35] LABS: Hematocrit 34.9 % (37.0-47.0); Hemoglobin 10.8 g/dL (12.2-16.2); Immature Granulocytes % 0.2 %; Mean Corpuscular HGB Conc 30.9 g/dL (31.8-35.4); Mean Corpuscular Hemoglobin 25.2 pg (27.0-31.2); Mean Corpuscular Volume 81.4 fl (81-99); Nucleated Red Blood Cells % 0 %; Platelet Count 240 K/mm3 (142-424); Red Blood Count 4.29 M/mm3 (4.20-5.40); Red Cell Distribution Width-SD 49.8 fL; White Blood Count 5.5 K/mm3 (4.8-10.8)
[2025-04-29 10:05] LABS: Albumin Level 3.5 g/dl (3.5-5.0); Chloride 106 mmol/L (98-107)
[2025-04-29 10:06] LABS: Potassium 4.0 mmoL/L (3.5-5.1); Sodium 140 mmol/L (136-145)
[2025-04-29 10:08] LABS: Blood Urea Nitrogen 13 mg/dl (7-17); Creatinine,Serum 0.90 mg/dl (0.52-1.04); Estimated Glomerular Filt Rate 64 ml/min (>60); GFR (African American) 77 ML/MIN (>60)
[2025-04-29 10:09] LABS: Alanine Aminotransferase 23 U/L (12-78); Albumin/Globulin Ratio 1.4 (1.1-1.8); Alkaline Phosphatase 78 U/L (38-126); Anion Gap 13.0 mEq/L (5-15); Aspartate Amino Transferase 30 U/L (14-36); Bilirubin,Total 0.3 mg/dl (0.2-1.3); Calcium 9.2 mg/dl (8.4-10.2); Carbon Dioxide 25 mmol/L (22.0-30.0); Globulin 2.5 g/dL (1.3-3.2); Glucose 134 mg/dl (74-100); Total Protein,Serum 6.0 g/dl (6.3-8.2)
[2025-04-29 10:28] LABS: Uric Acid 5.0 mg/dl (2.5-6.2)
[2025-04-29 10:33] LABS: C-Reactive Protein 10.6 mg/L (0-4)
[2025-04-29 11:18] LABS: Vitamin B12 428 pg/mL (239-931)
[2025-04-30 07:01] LABS: RA Latex Turbid. <10.0 IU/mL (<14.0)
[2025-05-02 14:25] LABS: Antinuclear Antibodies, IFA Negative (.)
[2025-05-04 19:32] LABS: 1,25 Dihydroxy Vitamin D 35 pg/mL (.); 1,25-Dihydroxy, Vitamin D-2 <10 pg/mL (.); 1,25-Dihydroxy, Vitamin D-3 35 pg/mL (.)
== END 2025-04-29 23:59 | disposition home or self-care (01) ==
LOC: RT 08:41
PROVIDERS: PCP Family Medicine; Visit Provider Podiatrist
DX: M79.7 Fibromyalgia (principal); G89.4 Chronic pain syndrome; E66.01 Morbid (severe) obesity due to excess calories; G62.9 Polyneuropathy, unspecified; R20.8 Other disturbances of skin sensation; R09.89 Other specified symptoms and signs involving the circulatory and respiratory systems
CPT/HCPCS: 36415; 80053; 82607; 82652; 84550; 85025; 85651; 86038; 86140; 86431; 93923